=== PATIENT | female | born 1965 | race Caucasian/White ===

== ENCOUNTER 2023-01-04 12:59 | Outpatient (OUT) | payer MEDICAID, SELFPAY ==
--- NOTE | 2023-01-04 13:05 | XR_ITS ---
[address] [address] Patient Name: BENTON SORENSEN MRN: [id number] date: 1965 Sex: F Assigned Patient Location: [facility] Current Patient Location: [facility] Accession/Order Number: [id number] Exam Date: 01/04/2023 13:05 Report Date: 01/04/2023 23:14 At the request of: LANE [facility] Procedure: XR ankle LT min 3V EXAM: Left ankle. HISTORY: . LEFT ANKLE PAIN . COMPARISON: None. TECHNIQUE: 3 views. FINDINGS: Medial and lateral malleoli appear intact. Ankle mortise appears intact. Surrounding soft tissues are unremarkable. Visualized bones appear somewhat osteoporotic. Impression: 1. No acute bony abnormality of left ankle. Electronically authenticated by: NATACHA SALEH Date: 01/04/2023 23:14
--- NOTE | 2023-01-04 13:05 | XR_ITS ---
The [address] [address] Patient Name: BENTON SORENSEN MRN: [id number] date: 1965 Sex: F Assigned Patient Location: [facility] Current Patient Location: [facility] Accession/Order Number: [id number] Exam Date: 01/04/2023 13:05 Report Date: 01/05/2023 07:35 At the request of: L[facility] Procedure: XR foot LT min 3V PROCEDURE: XR foot LT min 3V HISTORY: LEFT FOOT PAIN ; follow-up left lateral malleolus fracture COMPARISON: XR left foot and ankle 12/13/2022 FINDINGS: BONES:Generalized mild osteopenia and multifocal mild degenerative joint disease. No acute fracture or dislocation. SOFT TISSUES:No visible soft tissue swelling. EFFUSION:None visible. OTHER: Negative. IMPRESSION: 1. Stable chronic changes. No acute or suspicious abnormality. Electronically authenticated by: CHARLES URRUTIA Date: 01/05/2023 07:35
== END 2023-01-04 13:00 ==
LOC: RAD 13:00
PROVIDERS: PCP Nurse Practitioner; Visit Provider Podiatrist Foot & Ankle Surgery
DX: S92.21 Fracture of cuboid bone (principal); S92.322K Displaced fracture of second metatarsal bone, left foot, subsequent encounter for fracture with nonunion
CPT/HCPCS: 73610; 73630

== ENCOUNTER 2023-01-16 12:19 | Outpatient (OUT) | payer MEDICAID, SELFPAY ==
[2023-01-16 12:33] VITALS: BP 124/82; PULSE 85; RESP 18; TEMP 36.6; O2SAT 93
[2023-01-16] MEDS: DENOSUMAB 60 MG/ML SYRINGE SUBQ (12:42)
--- NOTE | 2023-01-16 12:45 | PC.NURSE ---
Addendum entered by Sd Sheppard 01/16/23 12:59: 1300: Pt. without s&s of adverse reaction. Pt. d/c'd amb. to home Original Note: 1233: Pt. to [facility] amb. accompanied by child. Seated in recliner. VSS. Denies allergies. This RN explains how Prolia helps treat osteoporosis. Questions addressed. 1245: Pt. medicated with Prolia 60mg SQ to right arm. No bleeding to site. Pt. tolerated without c/o. Instructed to remain seated for brief observation for adverse reaction.
--- NOTE | 2023-01-16 13:28 | XR_ITS ---
The [place] [id number] Patient Name: BENTON SORENSEN MRN: [id number] date: 1965 Sex: F Assigned Patient Location: LAB Current Patient Location: LAB Accession/Order Number: [id number] Exam Date: 01/16/2023 13:35 Report Date: 01/17/2023 07:05 At the request of: RAHUL AYALA Procedure: XR lumbar spine 2-3V EXAMINATION: XR lumbar spine 2-3V HISTORY: Lumbar spine pain M54.50 COMPARISON: No relevant comparison available. FINDINGS: BONES: 10% anterior wedge compression fracture of L4, age indeterminate, endplate sclerosis suggests a chronic fracture. Mild spondylosis and facet osteoarthropathy DISC SPACES: Multilevel disc space narrowing most significant at L5-S1 PARASPINOUS: Negative. No paraspinous abnormality is seen. OTHER: Negative. IMPRESSION: Age-indeterminate anterior wedge compression fracture of L4 Electronically authenticated by: NATACHA NOVAK Date: 01/17/2023 07:05
--- NOTE | 2023-01-16 13:28 | XR_ITS ---
[address] [address] Patient Name: BENTON SORENSEN MRN: [id number] date: 1965 Sex: F Assigned Patient Location: LAB Current Patient Location: LAB Accession/Order Number: [id number] Exam Date: 01/16/2023 13:35 Report Date: 01/17/2023 06:30 At the request of: RAHUL AYALA Procedure: XR hip BI w PEL 1V EXAMINATION: XR hip BI w PEL 1V HISTORY: Bilateral hip pain M25.551, M25.552 COMPARISON: No relevant comparison available. FINDINGS: RIGHT FINDINGS: BONES: Normal. No significant arthropathy or acute abnormality. SOFT TISSUES: Negative. No visible soft tissue swelling. OTHER: Negative. LEFT FINDINGS: BONES: Normal. No significant arthropathy or acute abnormality. SOFT TISSUES: Negative. No visible soft tissue swelling. OTHER: Negative. IMPRESSION: RIGHT CONCLUSION: No acute radiographic abnormality LEFT CONCLUSION: No acute radiographic abnormality Electronically authenticated by: NATACHA NOVAK Date: 01/17/2023 06:30
[2023-01-16 14:27] LABS: Free T4 0.71 ng/dL (0.76-1.46)
[2023-01-16 15:39] LABS: Alanine Aminotransferase 20 U/L (14-59); Albumin Level 3.8 g/dL (3.4-5.0); Alkaline Phosphatase 98 U/L (46-116); Anion Gap 14.5; Aspartate Amino Transferase 28 U/L (15-37); BUN Creatinine Ratio 14.9; Bilirubin Total 0.3 mg/dL (0.2-1.0); Calcium 9.3 mg/dL (8.5-10.1); Carbon Dioxide 25.1 mmol/L (21.0-32.0); Chloride 106 mmol/L (98-107); Estimated GFR (African America 60 (>=60); Estimated GFR (Non-African Ame 49 (>=60); Globulin 3.7 g/dL; Glucose 90 mg/dL (74-106); Potassium 4.6 mmol/L (3.5-5.1); Sodium 141 mmol/L (136-145); Total Protein 7.5 g/dL (6.4-8.2)
[2023-01-16 15:57] LABS: Chol HDL Ratio 3.7; Cholesterol 190 mg/dL (<=200); HDL Cholesterol 52 mg/dL (40-60); Thyroid Stimulating Hormone 1.919 uIU/mL (0.358-3.740); Triglycerides 90 mg/dL (<=150)
== END 2023-01-24 00:46 | disposition home or self-care (01) ==
LOC: LAB 07-21 10:44
PROVIDERS: PCP Nurse Practitioner; Visit Provider Nurse Practitioner
DX: M81.0 Age-related osteoporosis without current pathological fracture (principal); E78.5 Hyperlipidemia, unspecified; E03.9 Hypothyroidism, unspecified; M25.551 Pain in right hip; M25.552 Pain in left hip; M54.50 Low back pain, unspecified; M48.56XA Collapsed vertebra, not elsewhere classified, lumbar region, initial encounter for fracture
CPT/HCPCS: 36415; 72100; 73523; 80053; 80061; 84439; 84443; J0897

== ENCOUNTER 2023-04-11 19:48 | Outpatient (OUT) | payer MEDICAID, SELFPAY | END 2023-04-11 19:49 | disposition home or self-care (01) | LOC: SLEEP 19:48 | PROVIDERS: PCP Nurse Practitioner; Visit Provider Nurse Practitioner | DX: G47.33 Obstructive sleep apnea (adult) (pediatric) (principal); F51.01 Primary insomnia | CPT/HCPCS: 95810 ==

== ENCOUNTER 2023-06-13 14:02 | Outpatient (OUT) | payer MEDICAID, SELFPAY ==
[2023-06-13 15:02] LABS: Anion Gap 14.2; BUN Creatinine Ratio 9.5; Calcium 9.2 mg/dL (8.5-10.1); Carbon Dioxide 22.8 mmol/L (21.0-32.0); Chloride 105 mmol/L (98-107); Estimated GFR (African America 48 (>=60); Estimated GFR (Non-African Ame 40 (>=60); Glucose 92 mg/dL (74-106); Sodium 138 mmol/L (136-145); Thyroid Stimulating Hormone 0.953 uIU/mL (0.358-3.740)
[2023-06-13 15:15] LABS: Free T4 0.82 ng/dL (0.76-1.46)
== END 2023-06-13 14:03 | disposition home or self-care (01) ==
LOC: LAB 14:04
PROVIDERS: PCP Nurse Practitioner; Visit Provider Nurse Practitioner
DX: E03.9 Hypothyroidism, unspecified (principal); M81.0 Age-related osteoporosis without current pathological fracture
CPT/HCPCS: 36415; 80048; 82306; 84439; 84443

== ENCOUNTER 2023-08-17 07:34 | Outpatient (RCR) | payer MEDICAID, SELFPAY ==
--- NOTE | 2023-08-17 13:52 | MM_ITS ---
Patient Name: BENTON SORENSEN MR#: [id number] : 1965 Exam Date: 08/17/2023 Ordering Doctor: CHERYL Yeboah CNP RADIOLOGY REPORT PROCEDURE: MM TOMOSYNTHESIS SCREENING BI COMPARISON: MG MAMM CLARIBEL DIAG W CAD DIG, 01/15/2016. INDICATIONS: Screening Calculator Name NCI Breast Cancer Risk Assessment Tool 5 Year Breast Cancer Risk 1.00% Lifetime Breast Cancer Risk 6.70% Personal Breast Cancer No Personal Ovarian Cancer No Treatments None Family Cancers Mother with uterine cancer at age 20. LOCATION: [facility] BREAST COMPOSITION: Heterogeneously dense,which may obscure small masses. FINDINGS: DIAGNOSTIC CATEGORY 1--NEGATIVE. NO CHANGE FROM COMPARISON ASSESSMENT. Scattered benign-appearing lymph nodes are present. RIGHT BREAST: No significant suspicious finding. LEFT BREAST: No significant suspicious finding. RECOMMENDATIONS: ROUTINE MAMMOGRAM AND CLINICAL EVALUATION IN 12 MONTHS. PLEASE NOTE: A NORMAL MAMMOGRAM DOES NOT EXCLUDE THE POSSIBILITY OF BREAST CANCER. A CLINICALLY SUSPICIOUS PALPABLE LUMP SHOULD BE BIOPSIED. Dictated by: Juan Blakely MD on 08/17/2023 at 15:38 Approved by: Juan Blakely MD on 08/17/2023 at 15:41
[2023-08-17 14:00] LABS: Anion Gap 13.6; BUN Creatinine Ratio 12.4; Calcium 9.4 mg/dL (8.5-10.1); Carbon Dioxide 25.5 mmol/L (21.0-32.0); Chloride 107 mmol/L (98-107); Estimated GFR (African America 48 (>=60); Estimated GFR (Non-African Ame 40 (>=60); Glucose 95 mg/dL (74-106); Potassium 4.1 mmol/L (3.5-5.1); Sodium 142 mmol/L (136-145)
[2023-08-17 14:28] VITALS: BP 123/86; PULSE 87; RESP 18; TEMP 36.6; O2SAT 98
[2023-08-17] MEDS: DENOSUMAB 60 MG/ML SYRINGE SQ (14:31)
== END 2023-08-17 14:30 | disposition home or self-care (01) ==
LOC: INF 07:34
PROVIDERS: PCP Nurse Practitioner; Visit Provider Nurse Practitioner
DX: Z12.31 Encounter for screening mammogram for malignant neoplasm of breast (principal); M81.0 Age-related osteoporosis without current pathological fracture; Z80.8 Family history of malignant neoplasm of other organs or systems
CPT/HCPCS: 36415; 77063; 77067; 80048; 96372; J0897

== ENCOUNTER 2023-12-18 15:10 | Outpatient (OUT) | payer MEDICAID, SELFPAY ==
--- NOTE | 2023-12-18 15:22 | XR_ITS ---
The [address] [address] Patient Name: BENTON SORENSEN MRN: [id number] date: 1965 Sex: F Assigned Patient Location: [facility] Current Patient Location: LAB Accession/Order Number: [id number] Exam Date: 12/18/2023 15:30 Report Date: 12/19/2023 11:16 At the request of: NON-STAFF PHYSICIAN Procedure: XR cervical spine 5V EXAMINATION: XR cervical spine 5V HISTORY: Degenerative disc disease M50.30 COMPARISON: No relevant comparison available. FINDINGS: BONES: No significant spondylosis, scoliosis, fracture, or visible bony lesion. DISC SPACES: Slight narrowing C4-5, C5-6, C6-7. PARASPINOUS: Negative. No paraspinous abnormality is seen. OTHER: Negative. XR/XR cervical spine 5V IMPRESSION: 1. No appreciable acute abnormality. 2. Multilevel mild degenerative disc disease and minimal degenerative facet arthropathy. Electronically authenticated by: CHARLES URRUTIA Date: 12/19/2023 11:16
== END 2023-12-18 15:11 | disposition home or self-care (01) ==
LOC: RAD 15:12
PROVIDERS: PCP Nurse Practitioner
DX: M50.30 Other cervical disc degeneration, unspecified cervical region (principal); M47.812 Spondylosis without myelopathy or radiculopathy, cervical region
CPT/HCPCS: 72050

== ENCOUNTER 2023-12-18 15:14 | Outpatient (OUT) | payer MEDICAID, SELFPAY ==
[2023-12-18 15:54] LABS: Basophils Percent Auto 0.3 % (0.2-2.0); Eosinophils Absolute Auto 0.1 10^3/uL (0.0-0.7); Eosinophils Percent Auto 1.2 % (0.9-7.0); Hematocrit 37.2 % (36.0-48.0); Hemoglobin 12.1 g/dL (12.0-16.0); Immature Granulocytes Abs Auto 0.04 10^3/uL (0.00-0.03); Immature Granulocytes Pct Auto 0.6 % (0.0-0.5); Lymphocytes Absolute Auto 2.5 10^3/uL (1.2-3.8); Mean Corpuscular HGB Conc 32.5 g/dL (29.9-35.2); Mean Corpuscular Hemoglobin 29.1 pg (26.7-34.0); Mean Corpuscular Volume 89.4 fL (81.0-99.0); Monocytes Absolute Auto 0.3 10^3/uL (0.3-0.8); Monocytes Percent Auto 4.2 % (1.7-12.0); Neutrophils Absolute Auto 4.2 10^3/uL (1.4-6.5); Neutrophils Percent Auto 58.7 % (43.0-75.0); Platelet Count 305 10^3/uL (150-450); Red Blood Count 4.16 10^6/uL (4.20-5.40); White Blood Count 7.2 10^3/uL (4.0-11.0)
[2023-12-18 16:00] LABS: Bilirubin Urine LARGE (NEGATIVE); Blood Urine NEGATIVE (NEGATIVE); Clarity Urine CLEAR (CLEAR); Color Urine YELLOW (YELLOW); Glucose Urine UA NEGATIVE (NEGATIVE); Ketones Urine NEGATIVE (NEGATIVE); Leukocyte Esterase Urine SMALL (NEGATIVE); Nitrite Urine NEGATIVE (NEGATIVE); Protein Urine NEGATIVE (NEG/TRACE); Urobilinogen Urine 0.2 EU/dL (0.2-1.0); pH Urine 6.5 (5.0-9.0)
[2023-12-18 16:03] LABS: Urine Microscopic Indicated YES
[2023-12-18 16:23] LABS: Alanine Aminotransferase 24 U/L (14-59); Albumin Level 3.7 g/dL (3.4-5.0); Alkaline Phosphatase 75 U/L (46-116); Anion Gap 14.9; Aspartate Amino Transferase 29 U/L (15-37); BUN Creatinine Ratio 10.4; Bilirubin Total 0.5 mg/dL (0.2-1.0); Calcium 9.3 mg/dL (8.5-10.1); Chloride 103 mmol/L (98-107); Chol HDL Ratio 3.6; Cholesterol 238 mg/dL (<=200); Estimated GFR (African America 54 (>=60); Estimated GFR (Non-African Ame 44 (>=60); Globulin 3.8 g/dL; Glucose 95 mg/dL (74-106); HDL Cholesterol 67 mg/dL (40-60); Potassium 3.9 mmol/L (3.5-5.1); Sodium 138 mmol/L (136-145); Thyroid Stimulating Hormone 0.187 uIU/mL (0.358-3.740); Total Protein 7.5 g/dL (6.4-8.2); Triglycerides 121 mg/dL (<=150); VLDL CHOLESTEROL 24.2 mg/dL
[2023-12-18 16:36] LABS: Free T4 1.06 ng/dL (0.76-1.46)
[2023-12-18 16:40] LABS: Bacteria Urine TRACE #/HPF (NONE SEEN); Cast Seen? NONE SEEN #/LPF (NONE SEEN); Crystals Seen? None Seen #/HPF (None Seen); Mucus Urine NONE SEEN (NONE SEEN); RBC Urine 0-2 #/HPF (0-2); Squamous Epithelial Cell Urine MANY #/LPF (NONE/RARE)
== END 2023-12-18 15:15 | disposition home or self-care (01) ==
LOC: LAB 15:14
PROVIDERS: PCP Nurse Practitioner; Visit Provider Nurse Practitioner
DX: M81.0 Age-related osteoporosis without current pathological fracture (principal); E03.9 Hypothyroidism, unspecified; F41.9 Anxiety disorder, unspecified; F32.A Depression, unspecified; E55.9 Vitamin D deficiency, unspecified; E78.2 Mixed hyperlipidemia; K21.9 Gastro-esophageal reflux disease without esophagitis; Z72.0 Tobacco use; M50.30 Other cervical disc degeneration, unspecified cervical region; M47.812 Spondylosis without myelopathy or radiculopathy, cervical region
CPT/HCPCS: 36415; 72050; 80053; 80061; 81001; 82306; 84439; 84443; 85025

== ENCOUNTER 2023-12-26 11:33 | Outpatient (OUT) | payer MEDICAID, SELFPAY ==
--- NOTE | 2023-12-26 11:36 | US_ITS ---
The [address] [address] Patient Name: BENTON SORENSEN MRN: [id number] date: 1965 Sex: F Assigned Patient Location: [place] Current Patient Location: [place] Accession/Order Number: [id number] Exam Date: 12/26/2023 11:37 Report Date: 12/26/2023 12:39 At the request of: RAHUL AYALA Procedure: US thyroid EXAM: US thyroid HISTORY: Thyroid nodule E04.1 COMPARISON: 04/19/2021 TECHNIQUE: Multiple sonographic images of the thyroid gland were obtained, supplemented with Doppler. FINDINGS: Right lobe measures 4.4 x 1.1 x 1.2 cm. Homogeneous echoes are noted throughout. In the mid aspect there is a complex hyperechoic nodular mass measuring 0.5 x 0.4 x 0.4 cm. This is considered TI RADS 4. The left lobe measures 4.1 x 1.4 x 1.2 cm. Homogeneous echoes are noted throughout. In the superior aspect there is a solid hyperechoic nodule present measuring 0.4 x 0.4 x 0.4 cm. This is considered TI RADS 3 The isthmus measures 4 mm in thickness. There is no evidence of a focal mass or abnormal fluid collection surrounding the gland. US/US thyroid IMPRESSION: The thyroid gland is not enlarged. A small nodule is seen in each lobe biopsy is not recommended at this time. Follow-up study as clinically indicated. Electronically authenticated by: LANE BARTHOLOMEW Date: 12/26/2023 12:39
== END 2023-12-26 11:34 | disposition home or self-care (01) ==
LOC: US 11:33
PROVIDERS: PCP Nurse Practitioner; Visit Provider Nurse Practitioner
DX: E04.1 Nontoxic single thyroid nodule (principal)
CPT/HCPCS: 76536

== ENCOUNTER 2024-04-02 14:16 | Outpatient (OUT) | payer MEDICAID, SELFPAY ==
[2024-04-03 09:37] LABS: Alanine Aminotransferase 25 U/L (14-59); Albumin Globulin Ratio 1.1; Albumin Level 3.6 g/dL (3.4-5.0); Alkaline Phosphatase 88 U/L (46-116); Anion Gap 13.6; Aspartate Amino Transferase 18 U/L (15-37); BUN Creatinine Ratio 13.6; Bilirubin Total 0.3 mg/dL (0.2-1.0); Calcium 9.3 mg/dL (8.5-10.1); Carbon Dioxide 25.5 mmol/L (21.0-32.0); Chloride 102 mmol/L (98-107); Chol HDL Ratio 3.5; Cholesterol 189 mg/dL (<=200); Estimated GFR (African America 57 (>=60); Estimated GFR (Non-African Ame 47 (>=60); Globulin 3.4 g/dL; Glucose 91 mg/dL (74-106); HDL Cholesterol 54 mg/dL (40-60); LDL Cholesterol Calculated 115.8 mg/dL; Magnesium 1.4 mg/dL (1.8-2.4); Potassium 4.1 mmol/L (3.5-5.1); Sodium 137 mmol/L (136-145); Thyroid Stimulating Hormone 2.877 uIU/mL (0.358-3.740); Triglycerides 96 mg/dL (<=150); VLDL CHOLESTEROL 19.2 mg/dL
[2024-04-03 11:44] LABS: Free T4 0.68 ng/dL (0.76-1.46)
== END 2024-04-02 14:17 | disposition home or self-care (01) ==
LOC: LAB 14:17
PROVIDERS: PCP Nurse Practitioner; Visit Provider Nurse Practitioner
DX: E03.9 Hypothyroidism, unspecified (principal); E78.2 Mixed hyperlipidemia; M81.0 Age-related osteoporosis without current pathological fracture; E83.42 Hypomagnesemia
CPT/HCPCS: 36415; 80053; 80061; 83735; 84439; 84443

== ENCOUNTER 2024-12-18 15:27 | Outpatient (OUT) | payer MEDICAID, SELFPAY ==
--- OUTSIDE RECORDS SUMMARY | 2024-12-17 16:00 | XMS_ITS | Encounter Summary ---
Author Organization [facility] Address [address] [place] [address] Care Team Providers Care Wick Tender Name Role Phone Minda Yeboah NP Unavailable [phone] Tony Mathur MD Primary Care Provider [phone] Minda Yeboah NP Unavailable [phone] Reason for Referral * Consultation (Stat) - Authorized Specialty Diagnoses / Procedures Referred By Contyara t Referred To Contact Gastroenterology Diagnoses Gastroesophageal reflux disease, unspecified whether esophagitis present Hematemesis, unspecified whether nausea present Diarrhea, unspecified type Procedures TX OFFICE/OUTPATIENT NEW HIGH MDM 60 MINUTES Minda Yeboah NP [address] [place] [address] Phone: tel: fax: Saumya Pulido MD [address] [place] [address], [address], [address] [address] Phone: tel: fax: Referral ID Status Reason Start Date Expiration Date Visits Requested Visits Authorized [id number] Authorized Specialty Services Required 12/17/2024 06/15/2025 1 1 Scheduling Instructions Not so much STAT, but higher priority to scheduling an appt please Send notes from 12/17/24 appt Encounter Details Date Type Department Care Team (Late st Contact Info) Description 12/17/2024 4:00 PM EDT Office Visit [facility] [address] [place] [address] Minda Yeboah NP [address] [place] [address] Hematemesis, unspecified whether nausea present (Primary Dx); Gastroesophageal reflux disease, unspecified whether esophagitis present; Rheumatoid arthritis with positive rheumatoid factor, involving unspecified site (CMS/HCC); Cigarette nicotine dependence without complication; Encounter for screening mammogram for malignant neoplasm of breast; Diarrhea, unspecified type; Multiple thyroid nodules (CMS/HCC); Obesity with body mass index (BMI) of 30.0 to 39.9 Social History Tobacco Use Types Packs/Day Years Used Date Smoking Tobacco: Every Day Cigarettes 1 43.4 Started: 1979 Alcohol Use Standard Drinks/Week Comments Never 0 (1 standard drink = 0.6 oz pur e alcohol) coffee: 2-3cups daily PHQ-2 Answer Date Recorded Patient Health Questionnaire-2 Score 0 07/04/2024 Comments Unknown Sex and Gender Information Value Date Recorded Sex Assigned at Not on file Legal Sex Female 11:44 AM EDT Gender Identity Not on file Sexual Orientation Not on file documented as of this encounter Last Filed Vital Signs Vital Sign Reading Time Taken Comments Blood Pressure 116/84 12/17/2024 4:00 PM EDT Pulse 86 12/17/2024 4:00 PM EDT Temperature 36.6 C (97.8 F) 12/17/2024 4:00 PM EDT Respiratory Rate 19 12/17/2024 4:00 PM EDT Oxygen Saturation 98% 12/17/2024 4:00 PM EDT Inhaled Oxygen Concentration - - Weight 91.3 kg (201 lb 3.2 oz) 12/17/2024 4:00 P M EDT Height - - Body Mass Index 31.51 07/04/2024 1:57 PM EST documented in this encounter Patient Instructions * Patient Instructions* Minda Yeboah NP - 12/17/2024 4:00 PM EDT Check labs Also stop omeprazole and start pantoprazole 40mg daily I referred you to dr pulido, he is GI doctor affiliated with [facility], they should be calling for an appointment Recommend no caffeine, and quitting smoking, if another episode of vomiting blood happens, go to ER documented in this encounter Progress Notes * Minda Yeboah NP - 12/17/2024 4:44 PM EDTAssociated Problem(s): Encounter for screening mammogram for malignant neoplasm of breast Check mammogram * Minda Yeboah NP - 12/17/2024 4:43 PM EDTAssociated Problem(s): Obesity with body mass index (BMI) of 30.0 to 39.9 Discussed with patient their BMI (actual, verses recommended). We have also discussed lifestyle modifications: attempts to perform physical activity as chronic conditions allow, also to monitor dietary intake: increasing protein/fruits/veggies and lowering carb intake (unless contraindicated). Limit sodas, juices, and sugary drinks. * Minda Yeboah NP - 12/17/2024 4:42 PM EDTAssociated Problem(s): Multiple thyroid nodules (CMS/HCC) Recheck US * Minda Yeboah NP - 12/17/2024 4:42 PM EDTAssociated Problem(s): Hematemesis No episodes since the one she describes Avoid ETOH, advised quit smoking Change PPI Refer to GI Check labs If happens again, proceed to the ER * Minda Yeboah NP - 12/17/2024 4:41 PM EDTAssociated Problem(s): Diarrhea No visible blood that she can see Check stool OB, as well as c diff Will refer to colonoscopy * SHARON QUIGLEY - 12/17/2024 4:00 PM EDT [place] went [place] to [place] (pt states she has been feeling drained for some time but she felt more drained than usual) pt states she typically does not drink alcohol. She had 4 rum cokes she passedout that night. Pt woke up close to 2 am and started having several emesis between 2am-6am. Pt states she had about 5 emesis but each time there was bright red blood and seemed to be a lot. Pt statesshe had the chills, headaches, no other s/s. Pt states it was only that night were she was vomitingblood. Pt states she did take all over her medications Monday morning before leaving however she did not take any meds that evening when drinking. Pt states she has had diarrhea for about a month no blood it does look dark in color not necessarily black and stomach is always bloated. * Minda Yeboah NP - 12/17/2024 4:00 PM EDT Images from the original note were not included. Tanja Carrero is a 59 y.o. female presents with chief complaint of No chief complaint on file. HPI: Pt went [place] (pt states she has been feeling drained for some time but she felt more drained than usual) pt states she typically does not drink alcohol. She had 4 rum cokes she passedout that night. Pt woke up close to 2 am and started having several emesis between 2am-6am. Pt states she had about 5 emesis but each time there was bright red blood and seemed to be a lot. Pt statesshe had the chills, headaches, no other s/s. Pt states it was only that night were she was vomitingblood. Pt states she did take all over her medications Monday morning before leaving however she did not take any meds that evening when drinking. Pt states she has had diarrhea for about a month no blood it does look dark in color not necessarily black and stomach is always bloated. No fever, no abd pain, no NVD. No further episodes of bloody emesis. She does have diarrheal stools2-3 times daily, and this has been ongoing from some time Dark stools, no bloody stools SUBJECTIVE: MEDICATIONS: Current Outpatient Medications Medication Instructions albuterol HFA 90 mcg/act inhaler 2 puffs, Inhalation, Every 6 hours PRN alendronate (FOSAMAX) 70 mg, Oral, Every 7 days, Take in the morning with a full glass of water, nicole empty stomach, and do not take anything else by mouth or lie down for the next 30 min. Ask pharmacist how to take this in relation to your thyroid medicati ARIPiprazole (ABILIFY) 5 mg, Oral, Daily atorvastatin (LIPITOR) 40 mg, Oral, Nightly cetirizine (ZYRTEC) 10 mg, Oral, Daily cholecalciferol (VITAMIN D-3) 50 mcg, Oral, Daily cyclobenzaprine (FLEXERIL) 5 mg, Daily PRN fluticasone (Flonase) 50 MCG/ACT nasal spray 2 sprays, Each Nostril, Daily folic acid (FOLVITE) 1 mg, Daily ibuprofen 800 mg, Every 8 hours PRN levothyroxine (SYNTHROID) 50 mcg, Oral, Daily before breakfast magnesium oxide (MAG-OX) 400 mg, Oral, Daily methotrexate 12.5 mg, Weekly pantoprazole (PROTONIX) 40 mg, Oral, Daily before breakfast, Do not crush, chew, or split. QUEtiapine (SEROQUEL) 150 mg, Oral, Nightly sertraline (ZOLOFT) 100 mg, Oral, 2 times daily topiramate (TOPAMAX) 100 mg, Oral, 2 times daily, Total daily dose is 125 mg topiramate (TOPAMAX) 25 mg, Oral, 2 times daily, Total daily dose is 125 mg Umeclidinium-Vilanterol (Anoro Ellipta) 62.5-25 MCG/ACT aerosol powder 1 puff, Inhalation, Daily ALLERGIES: No Known Allergies REVIEW OF SYMPTOMS: Review of Systems Constitutional: Positive for fatigue. Negative for appetite change, chills and fever. HENT: Negative for congestion, ear pain and sore throat. Eyes: Negative for pain, discharge, redness and visual disturbance. Respiratory: Negative for cough, shortness of breath and wheezing. Cardiovascular: Negative for chest pain, palpitations and leg swelling. Gastrointestinal: Negative for abdominal pain, blood in stool, constipation, diarrhea, nausea and vomiting. Bloody emesis Genitourinary: Negative for difficulty urinating, dysuria and frequency. Musculoskeletal: Positive for arthralgias. Negative for back pain, joint swelling and myalgias. Skin: Negative for rash and wound. Neurological: Negative for dizziness, tremors, seizures (hx of), syncope and headaches (hx of migraine). Psychiatric/Behavioral: Negative for behavioral problems, self-injury and suicidal ideas. The patient is nervous/anxious. Hematological: Does not bruise/bleed easily. Endocrine: Negative for polydipsia, polyphagia and polyuria. Allergic/Immunologic: Negative for environmental allergies and food allergies. PAST MEDICAL HISTORY Past Medical History: Diagnosis Date Abnormal chest CT Age-related osteoporosis without current pathological fracture ([facility]) 07/25/2023 Anemia Anxiety At low risk for fall Chronic pain Constipation COVID-19 virus detected Depression with anxiety 08/14/2023 10/20/22: MARY 7 score=18, PHQ 9 score=18 Elevated serum creatinine 07/27/2023 Elevated serum glucose Environmental and seasonal allergies 08/20/2023 MARY (generalized anxiety disorder) ([facility] 07/22/2023 GERD (gastroesophageal reflux disease) 08/14/2023 HLD (hyperlipidemia) ([facility] 08/14/2023 Hypokalemia Hypomagnesemia 08/14/2023 Hypothyroidism (acquired) ([facility]) 07/03/2023 Insomnia 08/14/2023 Lumbar spine pain Major depressive disorder with single episode, in remission (HCC) ([facility] 07/03/2023 Migraines ([facility]) 08/14/2023 Mild episode of recurrent major depressive disorder (HCC) ([facility]) Obesity with body mass index (BMI) of 30.0 to 39.9 09/11/2023 THOMAS (obstructive sleep apnea) 08/14/2023 sleep study: AHI 7, minimum oxygen saturation is 87% Osteoporosis ([facility]) 08/14/2023 Postmenopause RA (rheumatoid arthritis) ([facility]) 08/14/2023 Seizures ([facility]) 08/14/2023 Spondylosis, lumbosacral 08/14/2023 Thyroid enlargement ([facility]) 09/11/2023 Thyroid nodule ([facility]) 09/11/2023 Tobacco user 08/14/2023 Past Surgical History: Procedure Laterality Date APPENDECTOMY 02/23/2007 family history includes Arthritis in her mother; Cancer in her mother; Heart disease in her father,maternal grandmother, and another family member; Hypertension in her father, mother, and another family member; Hypothyroidism in her mother; Rheum arthritis in her mother. OBJECTIVE: Visit Vitals BP 116/84 (BP Location: Left arm, Patient Position: Sitting, BP Cuff Size: Adult long) Pulse 86 Temp 97.8 ??F (Temporal) Resp 19 Wt 201 lb 3.2 oz SpO2 98% BMI 31.51 kg/m?? Smoking Status Every Day BSA 2.08 m?? Physical Exam Vitals and nursing note reviewed. Constitutional: General: She is not in acute distress. Appearance: Normal appearance. She is not ill-appearing. HENT: Head: Normocephalic and atraumatic. Right Ear: External ear normal. Left Ear: External ear normal. Nose: Nose normal. Mouth/Throat: Mouth: Mucous membranes are moist. Eyes: Extraocular Movements: Extraocular movements intact. Conjunctiva/sclera: Conjunctivae normal. Neck: Vascular: No carotid bruit. Cardiovascular: Rate and Rhythm: Normal rate and regular rhythm. Pulses: Normal pulses. Heart sounds: Normal heart sounds. No murmur heard. Pulmonary: Effort: Pulmonary effort is normal. Breath sounds: Normal breath sounds. No wheezing or rhonchi. Abdominal: General: Bowel sounds are normal. There is no distension. Palpations: Abdomen is soft. There is no mass. Tenderness: There is no abdominal tenderness. There is no guarding or rebound. Musculoskeletal: General: Normal range of motion. Cervical back: Normal range of motion and neck supple. Right lower leg: No edema. Left lower leg: No edema. Lymphadenopathy: Cervical: No cervical adenopathy. Skin: General: Skin is warm and dry. Capillary Refill: Capillary refill takes 2 to 3 seconds. Findings: No rash. Neurological: General: No focal deficit present. Mental Status: She is alert and oriented to person, place, and time. Psychiatric: Mood and Affect: Mood normal. Behavior: Behavior normal. Thought Content: Thought content normal. Judgment: Judgment normal. ASSESSMENT AND PLAN: Follow up in about 4 weeks (around 01/14/2025) for Recheck. Problem List Items Addressed This Visit GERD (gastroesophageal reflux disease) - Primary Recommendations: freq small meals, nothing to eat or drink at least 2 hours prior to bed, limit caffeine, alcohol, as well as spicy foods Meds to limit or avoid if possible: NSAIDS Elevate HOB if possible Currently taking PPI, will stop omeprazole and start pantoprazole Relevant Medications pantoprazole (ProtoNix) 40 MG EC tablet Other Relevant Orders Ambulatory referral to Gastroenterology Rheumatoid arthritis, unspecified Continue with rheumatolgist ?? Meds aggravating stomach?? Multiple thyroid nodules (CMS/HCC) Recheck US Obesity with body mass index (BMI) of 30.0 to 39.9 Discussed with patient their BMI (actual, verses recommended). We have also discussed lifestyle modifications: attempts to perform physical activity as chronic conditions allow, also to monitor dietary intake: increasing protein/fruits/veggies and lowering carb intake (unless contraindicated). Limit sodas, juices, and sugary drinks. Cigarette nicotine dependence without complication The patient has been advised of the risks of continued smoking: stroke, CO, all forms of cancer, lung disease, and . Options for quitting smoking include: cold turkey, hypnosis, acupuncture, nicotine replacement meds(gum, lozenges, and patches), Buproprion, and Varenicline. At this time pt is encouraged to evaluate their goals for wanting to quit smoking, and reach out toprovider when ready to start this process Encounter for screening mammogram for malignant neoplasm of breast Check mammogram Hematemesis No episodes since the one she describes Avoid ETOH, advised quit smoking Change PPI Refer to GI Check labs If happens again, proceed to the ER Relevant Orders Ambulatory referral to Gastroenterology Diarrhea No visible blood that she can see Check stool OB, as well as c diff Will refer to colonoscopy Relevant Orders Occult blood x 1, stool Clostridium difficile,EIA Ambulatory referral to Gastroenterology * Minda Yeboah NP - 12/17/2024 6:55 AM EDTAssociated Problem(s): Cigarette nicotine dependence without complication The patient has been advised of the risks of continued smoking: stroke, CO, all forms of cancer, lung disease, and . Options for quitting smoking include: cold turkey, hypnosis, acupuncture, nicotine replacement meds(gum, lozenges, and patches), Buproprion, and Varenicline. At this time pt is encouraged to evaluate their goals for wanting to quit smoking, and reach out toprovider when ready to start this process * Minda Yeboah NP - 12/17/2024 6:55 AM EDTAssociated Problem(s): Rheumatoid arthritis, unspecified Continue with rheumatolgist ?? Meds aggravating stomach?? * Minda Yeboah NP - 12/17/2024 6:54 AM EDTAssociated Problem(s): GERD (gastroesophageal reflux disease) Recommendations: freq small meals, nothing to eat or drink at least 2 hours prior to bed, limit caffeine, alcohol, as well as spicy foods Meds to limit or avoid if possible: NSAIDS Elevate HOB if possible Currently taking PPI, will stop omeprazole and start pantoprazole documented in this encounter Plan of Treatment Upcoming Encounters Date Type Department Care Team (Late st Contact Info) Description 01/13/2025 1:00 PM EDT Office Visit [facility] [address] [place] [address] Minda Yeboah NP [address] [place] [address] Scheduled Orders Name Type Priority Associated Diagnoses Orde r Schedule Occult blood x 1, stool Lab Routine Diarrhea, unspecified type Expected: 12/17/2024 (Approximate), Expires: 12/17/2025 Clostridium difficile,EIA Microbiology Routine Diarrhea, unspecified type Expected: 12/17/2024 (Approximate), Expires: 12/17/2025 Scheduled Referrals Name Type Priority Associated Diagnoses Order Schedule Ambulatory referral to Gastroenterology Outpatient Referral STAT Gastroesophageal reflux disease, unspecified whether esophagitis present Hematemesis, unspecified whether nausea present Diarrhea, unspecified type Expected: 12/17/2024 (Approximate), Expires: 06/19/2025 documented as of this encounter Visit Diagnoses Diagnosis Hematemesis, unspecified whether nausea present- Primary Gastroesophageal reflux disease, unspecified whether esophagitis present Rheumatoid arthritis with positive rheumatoid factor, involving unspecified site (CMS/HCC) Cigarette nicotine dependence without complication Encounter for screening mammogram for malignant neoplasm of breast Diarrhea, unspecified type Multiple thyroid nodules ([facility]/HCC) Nontoxic multinodular goiter Obesity with body mass index (BMI) of 30.0 to 39.9 documented in this encounter Care Teams Wick Tender Relationship Specialty Start Date End Date Tony Mathur MD [address] [place] [id number] PCP - General Family Medicine 09/19/23 Minda Yeboah NP [address] [place] [address] Referring Physician Nurse Practitioner 02/10/23 Minda Yeboah NP [address] [place] [address] Nurse Practitioner Family Medicine 09/19/23 documented as of this encounter
--- OUTSIDE RECORDS SUMMARY | 2024-12-18 15:32 | XMS_ITS | Encounter Summary ---
Author Organization [facility] Address [address] [facility] [place] [place] [address] Care Team Providers Care Rn Cvicu Name Role Phone Minda Yeboah NP Unavailable [phone] Tony Mathur MD Primary Care Provider [phone] Minda Yeboah NP Unavailable [phone] Encounter Details Date Type Department Care Team (Late st Contact Info) Description 12/26/2023 Clinisync Result Encounter [facility] External Department Unsolicited Minda Yeboah NP [address] [place] [address] Social History Tobacco Use Types Packs/Day Years Used Date Smoking Tobacco: Every Day Cigarettes 1 43.4 Started: 1981 Alcohol Use Standard Drinks/Week Comments Never 0 (1 standard drink = 0.6 oz pur e alcohol) coffee: 2-3cups daily PHQ-2 Answer Date Recorded Patient Health Questionnaire-2 Score 0 09/19/2023 Comments Unknown Sex and Gender Information Value Date Recorded Sex Assigned at Not on file Legal Sex Female 11:44 AM EDT Gender Identity Not on file Sexual Orientation Not on file documented as of this encounter Plan of Treatment Upcoming Encounters Date Type Department Care Team (Late st Contact Info) Description 01/13/2025 1:00 PM EDT Office Visit [facility] [address] [place] [phone] Minda Yeboah NP [address] [place] [address] (work) documented as of this encounter Procedures Procedure Name Priority Date/Time Associated Diagnosis Comments US THYROID 12/26/2023 12:39 PM EDT documented in this encounter Results * US thyroid (12/26/2023 12:39 PM EDT) Anatomical Region Laterality Modality Head, Neck Ultrasound 12/26/2023 12:3 9 PM EDT Narrative 12/26/2023 12:41 [place] [address] Ultrasound Report Signed Patient: BENTON CARRERO MR#: [id number] : 1965 Acct:[id number] Age/Sex: 58 / F ADM Date: 12/26/23 Loc: US Attending Dr: Minda Yeboah NP Ordering Physician: Minda Yeboah NP Date of Service: 12/26/23 Procedure(s): US thyroid Accession Number(s): [id number] cc: Minda Yeboah NP [address] [address] Patient Name: BENTON CARRERO MRN: [id number] date: 1965 Sex: F Assigned Patient Location: US Current Patient Location: US Accession/Order Number: [id number] Exam Date: 12/26/2023 11:37 Report Date: 12/26/2023 12:39 At the request of: MINDA YEBOAH Procedure: US thyroid EXAM: US thyroid HISTORY: Thyroid nodule E04.1 COMPARISON: 04/19/2021 TECHNIQUE: Multiple sonographic images of the thyroid gland were obtained, supplemented with Doppler. FINDINGS: Right lobe measures 4.4 x 1.1 x 1.2 cm. Homogeneous echoes are noted throughout. In the mid aspect there is a complex hyperechoic nodular mass measuring 0.5 x 0.4 x 0.4 cm. This is considered TI RADS 4. The left lobe measures 4.1 x 1.4 x 1.2 cm. Homogeneous echoes are noted throughout. In the superior aspect there is a solid hyperechoic nodule present measuring 0.4 x 0.4 x 0.4 cm. This is considered TI RADS 3 The isthmus measures 4 mm in thickness. There is no evidence of a focal mass or abnormal fluid collection surrounding the gland. US/US thyroid IMPRESSION: The thyroid gland is not enlarged. A small nodule is seen in each lobe biopsy is not recommended at this time. Follow-up study as clinically indicated. Electronically authenticated by: LANE DANIELLE Date: 12/26/2023 12:39 Dictated By: Lane Danielle M.D. Signed By: 12/26/23 1241 DD/ 1239 TD/TT: Loss Claim Clerk: Procedure Note Radiology, Radiologist, MD - 12/26/2023 [place] [address] Ultrasound Report Signed Patient: BENTON CARRERO MMR#: [id number] : 1965Acct:[id number] Age/Sex: 58 / FADM Date: 12/26/23 Loc: US Attending Dr: Minda Yeboah NP Ordering Physician: Minda Yeboah NP Date of Service: 12/26/23 Procedure(s): US thyroid Accession Number(s): [id number] cc: Minda Yeboah NP [facility] [place] [id number] Patient Name: BENTON CARRERO MRN: [id number] date: 1965 Sex: F Assigned Patient Location: US Current Patient Location: US Accession/Order Number: [id number] Exam Date: 12/26/2023 11:37 Report Date: 12/26/2023 12:39 At the request of: MINDA YEBOAH Procedure: US thyroid EXAM: US thyroid HISTORY: Thyroid nodule E04.1 COMPARISON: 04/19/2021 TECHNIQUE: Multiple sonographic images of the thyroid gland were obtained, supplemented with Doppler. FINDINGS: Right lobe measures 4.4 x 1.1 x 1.2 cm. Homogeneous echoes arenoted throughout. In the mid aspect there is a complex hyperechoic nodular mass measuring 0.5 x 0.4 x 0.4 cm. This is considered TI RADS 4. The left lobe measures 4.1 x 1.4 x 1.2 cm. Homogeneous echoes are noted throughout. In the superior aspect there is a solid hyperechoic nodulepresent measuring 0.4 x 0.4 x 0.4 cm. This is considered TI RADS 3 The isthmus measures 4 mm in thickness. There is no evidence of a focalmass or abnormal fluid collection surrounding the gland. US/US thyroid IMPRESSION: The thyroid gland is not enlarged. A small nodule is seen in each lobebiopsy is not recommended at this time. Follow-up study as clinically indicated. Electronically authenticated by: LANE DANIELLE Date: 12/26/2023 12:39 Dictated By: Lane Danielle M.D. Signed By:12/26/23 1241 DD/ 1239 TD/TT: Loss Claim Clerk: us Minda Yeboah NP IMG US PROCEDURES Final Result documented in this encounter Visit Diagnoses Not on filedocumented in this encounter Care Teams Rn Cvicu Relationship Specialty Start Date End Date Tony Mathur MD [address] [place] [phone] PCP - General Family Medicine 09/19/23 Minda Yeboah NP [address] [place] [phone] Referring Physician Nurse Practitioner 02/10/23 Minda Yeboah NP [address] [place] [phone] Nurse Practitioner Family Medicine 09/19/23 documented as of this encounter
--- OUTSIDE RECORDS SUMMARY | 2024-12-18 15:32 | XMS_ITS | Encounter Summary ---
Author Organization [facility] Address [address] [facility] [place] [address] Care Team Providers Care Measurement Advisor Name Role Phone Tnoy Mathru MD Primary Care Provider [phone] Minda Yeboah VIRTUAL ASSISTANT FOR ADVERTISERS Unavailable [phone] Tony Mathur MD Primary Care Provider [phone] Minda Yeboah VIRTUAL ASSISTANT FOR ADVERTISERS Unavailable [phone] Encounter Details Date Type Department Care Team (Late st Contact Info) Description 07/19/2023 Abstract [facility] [address] [place] [id number] Minda Yeboah NP [address] [place] [phone] Social History Tobacco Use Types Packs/Day Years Used Date Smoking Tobacco: Never Assessed Comments Unknown Sex and Gender Information Value Date Recorded Sex Assigned at Not on file Legal Sex Female 11:44 AM EDT Gender Identity Not on file Sexual Orientation Not on file documented as of this encounter Plan of Treatment Upcoming Encounters Date Type Department Care Team (Late st Contact Info) Description 01/13/2025 1:00 PM EDT Office Visit [facility] [address] [place] [phone] Minda Yeboah NP [address] [place] [phone] documented as of this encounter Visit Diagnoses Not on filedocumented in this encounter Care Teams Measurement Advisor Relationship Specialty Start Date End Date Tony Mathur MD PCP - General Family Medicine 02/10/23 09/18/23 Tony Mathur MD [address] [place] [address] PCP - General Family Medicine 09/19/23 Minda Yeboah NP [address] [place] [address] Referring Physician Nurse Practitioner 02/10/23 Minda Yeboah NP [address] [place] [address] Nurse Practitioner Family Medicine 09/19/23 documented as of this encounter
--- OUTSIDE RECORDS SUMMARY | 2024-12-18 15:32 | XMS_ITS | Encounter Summary ---
Author Organization [facility] tem Address [id number] [address] [place] [address] Care Team Providers Care Finger Buffs Assembler Name Role Phone Unavailable Primary Care Provider Unavailabl e Encounter Details Date Type Department Care Team (Late st Contact Info) Description 12/22/2023 Orders Only [facility] External Film Storage [facility] [place] [address] Transcribe, Orders Support User Pain (Primary Dx) Social History Tobacco Use Types Packs/Day Years Used Date Smoking Tobacco: Never Assessed Childcare Answer Date Recorded Childcare Unknown 01/09/2019 Employment Answer Date Recorded Employment Unknown 01/09/2019 Comments Unknown Sex and Gender Information Value Date Recorded Sex Assigned at Not on file Legal Sex Female 11:26 AM EDT Gender Identity Not on file Sexual Orientation Not on file documented as of this encounter Plan of Treatment Upcoming Encounters Date Type Department Care Team (Late st Contact Info) Description 01/16/2025 12:30 PM EDT Office Visit [facility] of [facility] [address] [id number] Cristian Szymanski MD [address] [address] documented as of this encounter Results * X-ray spine cervical 4 or 5 views (12/18/2023 3:30 PM EDT) us Scanning Provider External IMG DIAGNOSTIC IMAGIN G ORDERABLES Final Result documented in this encounter Visit Diagnoses Diagnosis Pain- Primary Generalized pain documented in this encounter
--- OUTSIDE RECORDS SUMMARY | 2024-12-18 15:32 | XMS_ITS | Patient Health Record ---
Author Organization [facility] [place] Address [address] [place] [address] Care Team Providers Care Clinical Research Spec Name Role Phone Minda Yeboah CNP Primary Care Provider Unavail able Allergies No Known Allergies Reason For Referral No Information Medications Medication SIG (Take, Route, Frequency, Duration) Notes Start Date End Date Status Fluticasone Propionate 50 MCG/ACT instill 2 spray into each nostril once daily Nasal for 30 Days Active busPIRone HCl 10 MG Oral for 30 Days Active Cetirizine HCl 10 MG Oral for 30 Days Active Anoro Ellipta 62.5-25 MCG/ACT Inhalation for 30 Days Activ e Topiramate 100 MG Oral for 30 Days Active Atorvastatin Calcium 10 MG take 1 tablet by mouth once daily Oral for 30 Days Active Ventolin HFA 108 (90 Base) MCG/ACT inhale 2 puffs by mouth and INTO THE LUNGS every 6 hours if needed for cough shortness of breath Inhalation for 25 Days Active QUEtiapine Fumarate 100 MG take 1 tablet by mouth at bedtime WITH 50 MG TABLET Oral for 30 Days Active Sertraline HCl 50 MG Oral for 30 Days Active oxyCODONE-Acetaminophen 5-325 MG take 1 tablet by mouth every 8 hours if needed for pain - - MAX 3 TABLET IN 24 HOURS Oral for 7 Days Active Pantoprazole Sodium 40 MG Oral for 30 Days Active Gabapentin 300 MG Oral for 30 Days Active Levothyroxine Sodium 25 MCG Oral for 30 Days Active Social History Tobacco Use: Social History Observation Description Date Details (start date - stop date) Current Smoker NA - NA Tobacco Use/Smoking Question Answer Notes Patient is a current every day smoker Additional Findings: Tobacco User Moderate cigar ette smoker (10-19 cigs/day) Problems Problem Type SNOMED Code ICD Code Onset Dates Problem Status W/U Status Risk Notes Problem 103429684 Age-related osteoporosis without current pathological fracture (M81.0) Active confirmed Problem 603428966 Pain in left ankle and joints of left foot (M25.572) Active confirmed Problem 377576790 Age-related osteoporosis with current pathological fracture, unspecified site, initial encounter for fracture (M80.00XA) Active confirmed Problem 39218686 Age-related osteoporosis with current pathological fracture, unspecified site, 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) Active confirmed Problem 49550663 Nondisplaced fracture of lateral malleolus of left fibula, subsequent encounter for closed fracture with delayed healing (S82.65XG) Active confirmed Problem 1090215 Nondisplaced fracture of cuboid bone of left foot, 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) Active confirmed Problem 48239602 Displaced fracture of second metatarsal bone, left foot, 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) Active confirmed Plan Of Treatment No Information Insurance Providers Payer Name Payer Address Payer Phone Subscriber Number Group Number Insured Name Patient Relationship to Insured Coverage Start Date Coverage End Date [employer] [place] [employer] [address] [address] [place] [address] [id number] Tanja Carrero Self - patient is the insured 3 Medical (General) History Medical History History ICD Code Dislocation of tarsometatarsal joint of left foot, subsequent encounter S93.325D Closed fracture of left ankle with routi ne healing S82.892D Ankle pain, left M25.572 Current nicotine use Z72.0 osteoporosis rheumatoid arthritis oste
--- OUTSIDE RECORDS SUMMARY | 2024-12-18 15:32 | XMS_ITS | Clinical Summary ---
Author Organization [facility] Address [address] [place] [address] Care Team Providers Care Paper Sealer Name Role Phone Minda Yeboah NP Unavailable [phone] Tony Mathur MD Primary Care Provider [phone] Minda Yeboah TEST CENTER ADMINISTRATOR Unavailable [phone] Allergies No known active allergies Medications ibuprofen 800 MG tablet Take 800 mg by mouth every 8 (eight) hours if needed 04/05/20 24 Active cyclobenzaprine (Flexeril) 5 MG tablet Take 5 mg by mouth Daily as needed for muscle spasms 05/16/20 24 Active albuterol HFA 90 mcg/act inhalerIndications :Simple chronic bronchitis (CMS/HCC) Inhale 2 puffs every 6 (six) hours if needed for wheezing 18 g 09/16/19 25 Active methotrexate 2.5 MG tablet Take 12.5 mg by mouth 1 (one) time per week. Active folic acid (Folvite) 1 MG tablet Take 1 mg by mouth Daily Active alendronate (Fosamax) 70 MG tabletIndications: Osteoporosis, unspecified osteoporosis type, unspecified pathological fracture presence (CMS/HCC) Take 1 tablet (70 mg) by mouth every 7 (seven) days Take in the morning with a full glass of water, on an empty stomach, and do not take anything else by mouth or lie down for the next 30 min. Ask pharmacist how to take this in relation to your thyroid medicati 12 tablet 1 10/15/19 25 025 Active ARIPiprazole (Abilify) 5 MG tabletIndications: Major depressive disorder with single episode, in remission (HCC) (CMS/HCC) Take 1 tablet (5 mg) by mouth Daily 90 tablet 10/15/19 25 025 Active atorvastatin (Lipitor) 40 MG tabletIndications: Mixed hyperlipidemia (CMS/HCC) Take 1 tablet (40 mg) by mouth at bedtime 90 tablet 10/15/19 025 Active cetirizine (ZyrTEC) 10 MG tabletIndications: Vitamin D deficiency,Environ mental and seasonal allergies Take 1 tablet (10 mg) by mouth Daily 90 tablet 1 10/15/19 025 Active cholecalciferol (Vitamin D-3) 50 MCG (2000 UT) capsuleIndications :Vitamin D deficiency Take 1 capsule (50 mcg) by mouth Daily 90 capsule 10/15/19 025 Active fluticasone (Flonase) 50 MCG/ACT nasal sprayIndications:E nvironmental and seasonal allergies Administer 2 sprays into each nostril Daily 48 g 10/15/19 025 Active levothyroxine (Synthroid) 50 MCG tabletIndications: Hypothyroidism (acquired) (CMS/HCC) Take 1 tablet (50 mcg) by mouth in the morning. Take before meals. 90 tablet 1 10/15/19 025 Active magnesium oxide (Mag-Ox) 400 (240 Mg) MG tabletIndications: Hypomagnesemia Take 1 tablet (400 mg) by mouth Daily 90 tablet 10/15/19 025 Active QUEtiapine (SEROquel) 50 MG tabletIndications: Anxiety and depression (CMS/HCC) Take 3 tablets (150 mg) by mouth at bedtime 270 tablet 10/15/19 025 Active sertraline (Zoloft) 100 MG tabletIndications: MARY (generalized anxiety disorder) (CMS/HCC),Major depressive disorder with single episode, in remission (HCC) (CMS/HCC) Take 1 tablet (100 mg) by mouth in the morning and 1 tablet (100 mg) before bedtime. 180 tablet 1 10/15/19 025 Active topiramate (Topamax) 100 MG tabletIndications: Seizures (CMS/HCC) Take 1 tablet (100 mg) by mouth in the morning and 1 tablet (100 mg) before bedtime. Total daily dose is 125 mg. 180 tablet 1 10/15/19 25 025 Active topiramate (Topamax) 25 MG tabletIndications: Seizures (CMS/HCC) Take 1 tablet (25 mg) by mouth in the morning and 1 tablet (25 mg) before bedtime. Total daily dose is 125 mg. 180 tablet 1 10/15/19 25 025 Active Umeclidinium-Vilan terol (Anoro Ellipta) 62.5-25 MCG/ACT aerosol powderIndications: Simple chronic bronchitis (CMS/HCC) Inhale 1 puff Daily 3 each 1 10/15/19 25 025 Active pantoprazole (ProtoNix) 40 MG EC tabletIndications: Gastroesophageal reflux disease, unspecified whether esophagitis present Take 1 tablet (40 mg) by mouth in the morning. Take before meals. Do not crush, chew, or split. 30 tablet 1 12/18/19 025 Active omeprazole (PriLOSEC) [address] capsuleIndications :Gastroesophageal reflux disease, unspecified whether esophagitis present Take 1 capsule (40 mg) by mouth in the morning. Take before meals. 90 capsule 1 10/15/19 025 Discontin ued(Ineff ective) Active Problems Problem Noted Date Diagnosed Date Hematemesis 12/17/2024 Assessment & Plan (12/17/2024 4:42 PM EDT): No episodes since the one she describes Avoid ETOH, advised quit smoking Change PPI Refer to GI Check labs If happens again, proceed to the ER Diarrhea 12/17/2024 Assessment & Plan (12/17/2024 4:41 PM EDT): No visible blood that she can see Check stool OB, as well as c diff Will refer to colonoscopy Chronic kidney disease, stage 3a ([facility]) 5 Mild episode of recurrent major depressive disor esperanza ([facility]) 10/01/2024 Assessment & Plan (10/14/2024 2:58 PM EDT): Current meds: seroquel, sertraline, aripiprazole PHQ 9= 8 Cigarette nicotine dependence without complicati on 10/01/2024 Assessment & Plan (12/17/2024 6:55 AM EDT): The patient has been advised of the risks of continued smoking: stroke, MO, all forms of cancer, lung disease, and . Options for quitting smoking include: cold turkey, hypnosis, acupuncture, nicotine replacement meds (gum, lozenges, and patches), Buproprion, and Varenicline. At this time pt is encouraged to evaluate their goals for wanting to quit smoking, and reach out to provider when ready to start this process Assessment & Plan (10/14/2024 7:26 AM EDT): The patient has been advised of the risks of continued smoking: stroke, MO, all forms of cancer, lung disease, and . Options for quitting smoking include: cold turkey, hypnosis, acupuncture, nicotine replacement meds (gum, lozenges, and patches), Buproprion, and Varenicline. At this time pt is encouraged to evaluate their goals for wanting to quit smoking, and reach out to provider when ready to start this process Encounter for screening mamm ogram for malignant neoplasm of breast 10/01/2024 Assessment & Plan (12/17/2024 4:44 PM EDT): Check mammogram Chronic obstructive pulmonary disease, unspecifi ed 05/29/2024 Assessment & Plan (07/04/2024 7:32 AM EST): Recommend quit smoking Cont anoro, albuterol prn Abnormal weight gain 04/29/2024 Assessment & Plan (07/04/2024 7:28 AM EST): Has completed # 6 months of adipex Total loss: Discussed with patient their BMI (actual, verses recommended). We have also discussed lifestyle modifications: attempts to perform physical activity as chronic conditions allow, also to monitor dietary intake: increasing protein/fruits/veggies and lowering carb intake (unless contraindicated). Limit sodas, juices, and sugary drinks. Maintain 1600 calorie diet Assessment & Plan (06/05/2024 2:34 PM EST): Has completed # 5 months of adipex OARRS reviewed Order month #6 Stick with 1600 calories daily Water intake, and exercise as chronic conditions allow Assessment & Plan (04/29/2024 6:10 PM EDT): Has completed # 3 months of adipex Total weight loss: 14 pounds OARRS reviewed COVID 09/28/2023 Nausea 09/26/2023 Chronic pain 09/11/2023 Constipation 09/11/2023 Assessment & Plan (06/05/2024 2:36 PM EST): Pre existing, does take miralax And adipex is likely worsening this Would recommend fiber tablets daily 2 pills Add apple juice /prune juice mix 1/2 cup nightly as well Thyroid nodule 09/11/2023 Overview (12/26/2023): US 12/26/23: 2 nodules, no biopsy at this time, repeat in 12 months Assessment & Plan (09/19/2023 3:05 PM EST): Needs fu US thyroid, will fax order to [facility] for this to be scheduled Thyroid enlargement 09/11/2023 Obesity with body mass index (BMI) of 30.0 to 39 .9 09/11/2023 Assessment & Plan (12/17/2024 4:43 PM EDT): Discussed with patient their BMI (actual, verses recommended). We have also discussed lifestyle modifications: attempts to perform physical activity as chronic conditions allow, also to monitor dietary intake: increasing protein/fruits/veggies and lowering carb intake (unless contraindicated). Limit sodas, juices, and sugary drinks. Assessment & Plan (01/22/2024 3:41 PM EDT): Pt meets qualifications of [facility] 4731-06-03 for weight loss. BMI>30 or >27 with comorbid conditions. Notify office with any symptoms of chest pain, dyspnea, heart palpitations, or any anxiety symptoms. F/U in 4 weeks to document weight loss. Increase physical activity as tolerated, and lower caloric intake to 1600 calories daily if no contraindications Start month #2: Total loss 8 pounds Assessment & Plan (12/18/2023 3:23 PM EDT): Weight increased when had foot fracture, also adding seroquel for sleep and anxiety. Pt meets qualifications of [facility] 4731-06-03 for weight loss. BMI>30 or >27 with comorbid conditions. Notify office with any symptoms of chest pain, dyspnea, heart palpitations, or any anxiety symptoms. F/U in 4 weeks to document weight loss. Increase physical activity as tolerated, and lower caloric intake to 1600 calories daily if no contraindications OARRS reviewed #1: Multiple thyroid nodules 08/28/2023 Assessment & Plan (12/17/2024 4:42 PM EDT): Recheck US Vitamin D deficiency 08/20/2023 Assessment & Plan (07/04/2024 7:34 AM EST): Continue current supplement Check labs yearly and prn Assessment & Plan (12/18/2023 3:18 PM EDT): Check labs Environmental and seasonal allergies 08/20/2023 Seizures 08/14/2023 Assessment & Plan (10/14/2024 7:25 AM EDT): Is not compliant with neurology fu Current meds: topirimate Assessment & Plan (07/04/2024 7:31 AM EST): Will cont topirimate, but monitor Is not compliant with neurology fu Assessment & Plan (04/29/2024 6:06 PM EDT): Will cont topirimate, but monitor Assessment & Plan (04/02/2024 1:43 PM EDT): No recent seizures Continue current meds Assessment & Plan (09/19/2023 3:04 PM EST): No recent seizures Continue current meds Insomnia 08/14/2023 Assessment & Plan (10/14/2024 3:13 PM EDT): Quetiapine, etc I suspect some intermittent issue with sleep is d/t her steroids She will address this with rheumatology this week Assessment & Plan (09/19/2023 3:05 PM EST): No changes to meds THOMAS (obstructive sleep apnea) 08/14/2023 Overview (08/14/2023): sleep study: AHI 7, minimum oxygen saturation is 87% GERD (gastroesophageal reflux disease) Assessment & Plan (12/17/2024 4:42 PM EDT): Recommendations: freq small meals, nothing to eat or drink at least 2 hours prior to bed, limit caffeine, alcohol, as well as spicy foods Meds to limit or avoid if possible: NSAIDS Elevate HOB if possible Currently taking PPI, will stop omeprazole and start pantoprazole Assessment & Plan (10/14/2024 7:26 AM EDT): Recommendations: freq small meals, nothing to eat or drink at least 2 hours prior to bed, limit caffeine, alcohol, as well as spicy foods Meds to limit or avoid if possible: NSAIDS Elevate HOB if possible Currently taking PPI Assessment & Plan (07/04/2024 7:32 AM EST): Recommendations: freq small meals, nothing to eat or drink at least 2 hours prior to bed, limit caffeine, alcohol, as well as spicy foods Meds to limit or avoid if possible: NSAIDS Elevate HOB if possible Currently taking PPI Assessment & Plan (12/18/2023 3:16 PM EDT): Will trial change in PPI Fu in 6 weeks Spondylosis, lumbosacral 08/14/2023 Osteoporosis 08/14/2023 Overview (07/04/2024): DEXA: 10/20/22: spine -2.3 and hip -3.0 Assessment & Plan (07/04/2024 7:33 AM EST): Continue w fosamax Last DEXA: 10/20/22 Assessment & Plan (04/29/2024 6:06 PM EDT): Will start fosamax, when ok from dental provider Assessment & Plan (12/18/2023 3:18 PM EDT): Needs prolia Rheumatoid arthritis, unspecified 08/14/2023 Assessment & Plan (12/17/2024 4:43 PM EDT): Continue with rheumatolgist ?? Meds aggravating stomach?? Assessment & Plan (04/29/2024 6:08 PM EDT): Continue with rheumatolgist Migraines 08/14/2023 Assessment & Plan (10/14/2024 7:27 AM EDT): Current med: topamax Hypomagnesemia 08/14/2023 Assessment & Plan (10/14/2024 7:27 AM EDT): Taking supplement daily Takes PPI daily as well Check labs yearly and prn changes in sxs Mixed hyperlipidemia 07/27/2023 Assessment & Plan (10/14/2024 7:28 AM EDT): Continue statin Check labs yearly and prn dose changes Assessment & Plan (07/04/2024 7:34 AM EST): Continue statin Check labs yearly and prn dose changes Elevated serum creatinine 07/27/2023 Age-related osteoporosis wit hout current pathological fracture 07/25/2023 Overview (01/22/2024): DEXA scan 10/20/22 spine -2.3, hip -3.0 Assessment & Plan (10/14/2024 7:26 AM EDT): Last DEXA 10/20/24: -3.0 Current meds: fosamax, and vit d Assessment & Plan (01/22/2024 3:43 PM EDT): DEXA 10/20: -3.0 No fosamax d/t GERD, last Prolia shot 12/20 Going to have teeth pulled in March Will check with [facility] MARY (generalized anxiety disorder) 07/22/2023 Assessment & Plan (10/14/2024 2:58 PM EDT): Current meds: sertraline, seroquel, abilify MARY 7= 14 Assessment & Plan (07/04/2024 2:19 PM EST): No changes to med MARY=2 Assessment & Plan (06/05/2024 2:28 PM EST): No changes to med dose Assessment & Plan (04/29/2024 6:07 PM EDT): Poncho cottos are working great Assessment & Plan (12/18/2023 3:19 PM EDT): Poncho cottos are working great Hypothyroidism (acquired) 07/03/2023 Assessment & Plan (10/14/2024 7:26 AM EDT): Continue levothyroxine Labs yearly and prn Assessment & Plan (07/04/2024 7:34 AM EST): Continue levothyroxine Labs yearly and prn Assessment & Plan (04/29/2024 6:07 PM EDT): Will recheck in next few weeks to see if needs dose change Assessment & Plan (12/18/2023 3:18 PM EDT): Check labs Still has not got her US of thyroid done Assessment & Plan (09/19/2023 3:05 PM EST): No changes in med dose Resolved Problems Problem Noted Date Diagnosed Date Resolved Date URI, acute 09/26/2023 04/02/2024 Epilepsy 09/11/2023 04/29/2024 Assessment & Plan (04/29/2024 6:06 PM EDT): Continue topirimate Will monitor Chronic bronchitis 08/20/2023 Assessment & Plan (04/02/2024 1:43 PM EDT): Continue the use of anoro and albuterol Tobacco user 08/14/2023 10/01/2024 Assessment & Plan (07/04/2024 7:27 AM EST): The patient has been advised of the risks of continued smoking: stroke, MO, all forms of cancer, lung disease, and . Options for quitting smoking include: cold turkey, hypnosis, acupuncture, nicotine replacement meds (gum, lozenges, and patches), Buproprion, and Varenicline. At this time pt is encouraged to evaluate their goals for wanting to quit smoking, and reach out to provider when ready to start this process Assessment & Plan (06/05/2024 7:11 AM EST): The patient has been advised of the risks of continued smoking: stroke, MO, all forms of cancer, lung disease, and . Options for quitting smoking include: cold turkey, hypnosis, acupuncture, nicotine replacement meds (gum, lozenges, and patches), Buproprion, and Varenicline. At this time pt is encouraged to evaluate their goals for wanting to quit smoking, and reach out to provider when ready to start this process Assessment & Plan (04/02/2024 1:45 PM EDT): The patient has been advised of the risks of continued smoking: stroke, MO, all forms of cancer, lung disease, and . Options for quitting smoking include: cold turkey, hypnosis, acupuncture, nicotine replacement meds (gum, lozenges, and patches), Buproprion, and Varenicline. At this time pt is encouraged to evaluate their goals for wanting to quit smoking, and reach out to provider when ready to start this process Patches, smokes 1ppd, for 40 years Start with 21mg patch Assessment & Plan (01/22/2024 3:41 PM EDT): The patient has been advised of the risks of continued smoking: stroke, MO, all forms of cancer, lung disease, and . Options for quitting smoking include: cold turkey, hypnosis, acupuncture, nicotine replacement meds (gum, lozenges, and patches), Buproprion, and Varenicline. At this time pt is encouraged to evaluate their goals for wanting to quit smoking, and reach out to provider when ready to start this process HLD (hyperlipidemia) 08/14/2023 025 Assessment & Plan (10/14/2024 7:27 AM EDT): On statin therapy Check labs yearly and prn dose changes Depression with anxiety 08/14/2023 0310/2024 Overview (07/04/2024): 10/20/22: MARY 7 score=18, PHQ 9 score=18 07/04/2024: MARY 7 score =2, PHQ 9 score= 5 Assessment & Plan (07/04/2024 2:20 PM EST): MARY 7= 2, PHQ 9= 5 Stable on current meds Assessment & Plan (04/29/2024 6:07 PM EDT): Stable on current meds Anxiety and depression 08/10/202304/02 Assessment & Plan (12/18/2023 3:19 PM EDT): Meds are doing well, no dose changes needed Assessment & Plan (09/19/2023 3:06 PM EST): Doing well on current meds, no changes Anxiety 07/03/2023 08/10/2023 Major depressive disorder wi th single episode, in remission (HCC) 07/03/2023 08/10/2023 Encounters Date Type Department Care Team Description 12/17/2024 4:00 PM EDT Office Visit [facility] [address] [place] [address] Minda Yeboah NP Hematemesis, unspecified whether nausea present (Primary Dx); Gastroesophageal reflux disease, unspecified whether esophagitis present; Rheumatoid arthritis with positive rheumatoid factor, involving unspecified site (CMS/HCC); Cigarette nicotine dependence without complication; Encounter for screening mammogram for malignant neoplasm of breast; Diarrhea, unspecified type; Multiple thyroid nodules (CMS/HCC); Obesity with body mass index (BMI) of 30.0 to 39.9 12/17/2024 Orders Only [facility] [address] [place] [address] Minda Yeboah NP Multiple thyroid nodules (CMS/HCC) (Primary Dx) 10/14/2024 2:20 PM EDT Office Visit [facility] [address] [place] [id number] Minda Yeboah NP Hypothyroidism (acquired) (CMS/HCC) (Primary Dx); Rheumatoid arthritis, unspecified (CMS/HCC); Chronic kidney disease, stage 3a (HCC) (CMS/HCC); Seizures (CMS/HCC); Gastroesophageal reflux disease, unspecified whether esophagitis present; Age-related osteoporosis without current pathological fracture (CMS/HCC); Cigarette nicotine dependence without complication; MARY (generalized anxiety disorder) (CMS/HCC); Hypomagnesemia; Migraine without status migrainosus, not intractable, unspecified migraine type (CMS/HCC); Mild episode of recurrent major depressive disorder (HCC) (CMS/HCC); Mixed hyperlipidemia (CMS/HCC) ; Osteoporosis, unspecified osteoporosis type, unspecified pathological fracture presence (CMS/HCC); Major depressive disorder with single episode, in remission (HCC) (CMS/HCC); Vitamin D deficiency; Environmental and seasonal allergies; Anxiety and depression (CMS/HCC); Simple chronic bronchitis (CMS/HCC) ; Insomnia, unspecified type 10/14/2024 Bamboo flowsheet [facility] [address] [place] [phone] Minda Yeboah NP 10/04/2024 Refill [facility] [address] [place] [address] Minda Yeboah NP Vitamin D deficiency; Environmental and seasonal allergies from Last 3 Months Immunizations Immunization Administration Dates Next Due Influenza, injectable, quadrivalent, preservativ e free 03/24/2015 Family History Medical History Relation Name Comments Heart disease Father Hypertension Father Heart disease Maternal Grandmother Arthritis Mother Cancer Mother Ovarian & Uteru s Hypertension Mother Hypothyroidism Mother Rheum arthritis Mother Heart disease Other Hypertension Other Relation Name Status Comments Father Maternal Grandmother Mother Other Social History Tobacco Use Types Packs/Day Years Used Date Smoking Tobacco: Every Day Cigarettes 1 43.4 Started: 1981 Tobacco Cessation:Ready to Q uit: No; Counseling Given: Yes Alcohol Use Standard Drinks/Week Comments Never 0 (1 standard drink = 0.6 oz pur e alcohol) coffee: 2-3cups daily PHQ-2 Answer Date Recorded Patient Health Questionnaire-2 Score 0 07/04/2024 Comments Unknown Sex and Gender Information Value Date Recorded Sex Assigned at Not on file Legal Sex Female 11:44 AM EDT Gender Identity Not on file Sexual Orientation Not on file Last Filed Vital Signs Vital Sign Reading [...] oz) 12/17/2024 4:00 P M EDT Height 170.2 cm (5' 7 ) 07/04/2024 1:57 PM EST Body Mass Index 31.51 07/04/2024 1:57 PM EST Plan of Treatment Upcoming Encounters Date Type Department Care Team (Late st Contact Info) Description 01/13/2025 1:00 PM EDT Office Visit [facility] [address] [place] [address] Minda Yeboah NP [address] [place] [address] Health Maintenance Due Date Last Done Comments CT Colonography 1967 FIT 1967 FOBT 1965 Sigmoidoscopy 1965 HPV/Cotest 11/01/1997 Colonoscopy 12/18/2019 12/17/2009 Mammogram 08/17/2024 08/17/2023, 08/17/2023 Cervical Cancer Screening 09/19/2026 Pap Smear 09/19/2026 09/19/2023 (Lynne ent Refused), 11/25/2009 Colorectal Cancer Screening 09/21/2026 FIT-DNA 09/21/2026 09/21/2023, 04/14/2023 Influenza Vaccine Discontinued 03/24/2015 Procedures Procedure Name Priority Date/Time Associated Diagnosis Comments LAB COLOGUARD COLON CANCER SCREEN Routine 09/21/2023 6:48 PM EST MM TOMOSYNTHESIS SCREENING BI 08/17/2023 3:41 PM EST from Last 3 Months or Most Recently Relevant to Health Maintenance Results * Cologuard?? colon cancer screening (09/21/2023 6:48 PM EST) Stool Minda Yeboah NP LAB MOLECULAR DIAGNOSTICS ORDER SILVA Final Result * MM TOMOSYNTHESIS SCREENING BI (08/17/2023 3:41 PM EST) Anatomical Region Laterality Modality Other 08/17/2023 3:41 PM EST Narrative 08/17/2023 3:42 PM EST The [address] [address] Mammography Report Signed Patient: BENTON CARRERO MR#: [id number] : 1965 Acct:[id number] Age/Sex: 57 / F ADM Date: 08/17/23 Loc: INF Attending Dr: Minda Yeboah NP Ordering Physician: Minda Yeboah NP Results: Date of Service: 08/17/23 Follow Up: Procedure(s): MM tomosynthesis screening BI Accession Number(s): [id number] cc: Minda Yeboah NP Patient Name: BENTON CARRERO MR#: [id number] : 1965 Exam Date: 08/17/2023 Ordering Doctor: CHERYL Yeboah CNP RADIOLOGY REPORT PROCEDURE: MM TOMOSYNTHESIS SCREENING BI COMPARISON: MG MAMM CLARIBEL DIAG W CAD DIG, 01/15/2016. INDICATIONS: Screening Calculator Name NCI Breast Cancer Risk Assessment Tool 5 Year Breast Cancer Risk 1.00% Lifetime Breast Cancer Risk 6.70% Personal Breast Cancer No Personal Ovarian Cancer No Treatments None Family Cancers Mother with uterine cancer at age 20. LOCATION: [facility] BREAST COMPOSITION: Heterogeneously dense,which may obscure small masses. FINDINGS: DIAGNOSTIC CATEGORY 1--NEGATIVE. NO CHANGE FROM COMPARISON ASSESSMENT. Scattered benign-appearing lymph nodes are present. RIGHT BREAST: No significant suspicious finding. LEFT BREAST: No significant suspicious finding. RECOMMENDATIONS: ROUTINE MAMMOGRAM AND CLINICAL EVALUATION IN 12 MONTHS. PLEASE NOTE: A NORMAL MAMMOGRAM DOES NOT EXCLUDE THE POSSIBILITY OF BREAST CANCER. A CLINICALLY SUSPICIOUS PALPABLE LUMP SHOULD BE BIOPSIED. Dictated by: Juan Blakely MD on 08/17/2023 at 15:38 Approved by: Juan Blakely MD on 08/17/2023 at 15:41 Dictated By: Juan Blakely M.D. Signed By: 08/17/23 1542 DD/ 1541 TD/TT: Shift Foreman: Procedure Note Radiology, Radiologist, MD - 08/17/2023 [place] [address] Mammography Report Signed Patient: BENTON CARRERO MMR#: [id number] : 1965Acct:[id number] Age/Sex: 57 / FADM Date: 08/17/23 Loc: INF Attending Dr: Minda Yeboah NP Ordering Physician: Minda Yeboah NPResults: Date of Service: 08/17/23Follow Up: Procedure(s): MM tomosynthesis screening BI Accession Number(s): [id number] cc: Minda Yeboah NP Patient Name: BENTON CARRERO MR#: [id number] : 1965 Exam Date: 08/17/2023 Ordering Doctor: CHERYL Yeboah CNP RADIOLOGY REPORT PROCEDURE: MM TOMOSYNTHESIS SCREENING BI COMPARISON: MG MAMM CLARIBEL DIAG W PITO DIG, 01/15/2016. INDICATIONS: Screening Calculator Name NCI Breast Cancer Risk Assessment Tool 5 Year Breast Cancer Risk 1.00% Lifetime Breast Cancer Risk 6.70% Personal Breast Cancer No Personal Ovarian Cancer No Treatments None Family Cancers Mother with uterine cancer at age 20. LOCATION: [facility] BREAST COMPOSITION: Heterogeneously dense,which may obscure smallmasses. FINDINGS: DIAGNOSTIC CATEGORY 1--NEGATIVE. NO CHANGE FROM COMPARISON ASSESSMENT. Scattered benign-appearing lymph nodes are present. RIGHT BREAST: No significant suspicious finding. LEFT BREAST: No significant suspicious finding. RECOMMENDATIONS: ROUTINE MAMMOGRAM AND CLINICAL EVALUATION IN 12 MONTHS. PLEASE NOTE: A NORMAL MAMMOGRAM DOES NOT EXCLUDE THE POSSIBILITY OFBREAST CANCER. A CLINICALLY SUSPICIOUS PALPABLE LUMP SHOULD BE BIOPSIED. Dictated by: Juan Blakely MD on 08/17/2023 at 15:38 Approved by: Juan Blakely MD on 08/17/2023 at 15:41 Dictated By: Juan Blakely M.D. Signed By:08/17/23 1542 DD/ 1541 TD/TT: Shift Foreman: Minda Yeboah NP [facility] Final Result from Last 3 Months or Most Recently Relevant to Health Maintenance Insurance [facility] [place] Care Teams Paper Sealer Relationship Specialty Start Date End Date Tony Mathur MD [address] [place] [address] PCP - General Family Medicine 09/19/23 Minda Yeboah NP [address] [place] [address] Referring Physician Nurse Practitioner 02/10/23 Minda Yeboah NP [address] [place] [address] Nurse Practitioner Family Medicine 09/19/23
--- OUTSIDE RECORDS SUMMARY | 2024-12-18 15:32 | XMS_ITS | Encounter Summary ---
Author Organization [facility] Address [address] [facility] [place] [address] Care Team Providers Care Clinical Program Coordinator Name Role Phone Minda Yeboah NP Unavailable [phone] Tony Mathur MD Primary Care Provider [phone] Minda Yeboah NP Unavailable [phone] Encounter Details Date Type Department Care Team (Late Contact Info) Description 12/19/2023 Clinisync Result Encounter [facility] External Department Unsolicited Provider, Generic External Data Social History Tobacco Use Types Packs/Day Years [...] Visit [facility] [address] [place] [address] Minda Yeboah NP [address] [place] [address] documented as of this encounter Procedures Procedure Name Priority Date/Time Associated Diagnosis Comments XR CERVICAL SPINE 5V 12/19/2023 11:16 AM EDT documented in this encounter Results * XR CERVICAL SPINE 5V (12/19/2023 11:16 AM EDT) Anatomical Region Laterality Modality Other 12/19/2023 11:1 6 AM EDT Narrative 12/19/2023 11:19 [place] [address] XRay Report Signed Patient: BENTON CARRERO MR#: [id number] : 1965 Acct:[id number] Age/Sex: 58 / F ADM Date: 12/18/23 Loc: RAD Attending Dr: Non-Staff Physician Kenneth Ordering Physician: PhysicianBrittaStaff Kenneth Date of Service: 12/18/23 Procedure(s): XR cervical spine 5V Accession Number(s): [id number] cc: Minda Yeboah DERRICK BOAT RUNNER; PhysicianBrittaStaff Kenneth [place] [id number] Patient Name: BENTON CARRERO MRN: [id number] date: 1965 Sex: F Assigned Patient Location: [facility] Current Patient Location: LAB Accession/Order Number: [id number] Exam Date: 12/18/2023 15:30 Report Date: 12/19/2023 11:16 At the request of: NON-STAFF PHYSICIAN Procedure: XR cervical spine 5V EXAMINATION: XR cervical spine 5V HISTORY: Degenerative disc disease M50.30 COMPARISON: No relevant comparison available. FINDINGS: BONES: No significant spondylosis, scoliosis, fracture, or visible bony lesion. DISC SPACES: Slight narrowing C4-5, C5-6, C6-7. PARASPINOUS: Negative. No paraspinous abnormality is seen. OTHER: Negative. XR/XR cervical spine 5V IMPRESSION: 1. No appreciable acute abnormality. 2. Multilevel mild degenerative disc disease and minimal degenerative facet arthropathy. Electronically authenticated by: MAURICIO PEACOCK Date: 12/19/2023 11:16 Dictated By: Mauricio Peacock M.D. Signed By: 12/19/23 1119 DD/ 15 TD/TT: Deck Mechanic: Procedure Note Radiology, Radiologist, - 12/19/2023 [place] [id number] XRay Report Signed Patient: BENTON CARRERO MMR#: [id number] : 1965Acct:[id number] Age/Sex: 58 / FADM Date: 12/18/23 Loc: RAD Attending Dr: Non-Staff Physician Kenneth Ordering Physician: PhysicianNon-Staff Kenneth Date of Service: 12/18/23 Procedure(s): XR cervical spine 5V Accession Number(s): [id number] cc: Minda Yeboah NP; PhysicianLatoya M.D. [facility] [place] [id number] Patient Name: BENTON CARRERO MRN: [id number] date: 1965 Sex: F Assigned Patient Location: [facility] Current Patient Location: LAB Accession/Order Number: [id number] Exam Date: 12/18/2023 15:30 Report Date: 12/19/2023 11:16 At the request of: NON-STAFF PHYSICIAN Procedure: XR cervical spine 5V EXAMINATION: XR cervical spine 5V HISTORY: Degenerative disc disease M50.30 COMPARISON: No relevant comparison available. FINDINGS: BONES: No significant spondylosis, scoliosis, fracture, or visible bony lesion. DISC SPACES: Slight narrowing C4-5, C5-6, C6-7. PARASPINOUS: Negative. No paraspinous abnormality is seen. OTHER: Negative. XR/XR cervical spine 5V IMPRESSION: 1. No appreciable acute abnormality. 2. Multilevel mild degenerative disc disease and minimal degenerativefacet arthropathy. Electronically authenticated by: MAURICIO PEACOCK Date: 12/19/2023 11:16 Dictated By: Mauricio Peacock M.D. Signed By:12/19/23 1119 DD/ 15 TD/TT: Deck Mechanic: Generic External Data Provider [facility] Final Result documented in this encounter Visit Diagnoses Not on filedocumented in this encounter Care Teams Clinical Program Coordinator Relationship Specialty Start Date End Date Tony Mathur MD [address] [place] [address] PCP - General Family Medicine 09/19/23 Minda Yeboah NP [address] [place] [address] Referring Physician Nurse Practitioner 02/10/23 Minda Yeboah NP [address] [place] [address] Nurse Practitioner Family Medicine 09/19/23 documented as of this encounter
--- OUTSIDE RECORDS SUMMARY | 2024-12-18 15:32 | XMS_ITS | Encounter Summary ---
Author Organization [facility] Address [address] [place] [facility] [place] [address] Care Team Providers Care Repeat Photocomposing Machine Operator Name Role Phone Minda Yeboah NP Unavailable [phone] Tony Mathur MD Primary Care Provider [phone] Minda Yeboah NP Unavailable [phone] Encounter Details Date Type Department Care Team (Late st Contact Info) Description 08/22/2024 Orders Only [facility] [address] [place] [address] Unallocated, Noms Provider, [address] [place], [place] [address] Social History Tobacco Use Types Packs/Day Years [...] 1:00 PM EDT Office Visit [facility] [address] [place] [address] Minda Yeboah NP [address] [place] [address] documented as of this encounter Procedures Procedure Name Priority Date/Time Associated Diagnosis Comments CT HEAD WO IV CONTRAST Routine 08/21/2024 8:12 AM EST documented in this encounter Results * CT head wo IV contrast (08/21/2024 8:12 AM EST) Anatomical Region Laterality Modality Head, Neck Computed Tomogra phy us Noms Provider Unallocated MD MEDINA CT PROCEDURES F inal Result documented in this encounter Visit Diagnoses Not on filedocumented in this encounter Care Teams Repeat Photocomposing Machine Operator Relationship Specialty Start Date End Date Tony Mathur MD [address] [place] [address] PCP - General Family Medicine 09/19/23 Minda Yeboah NP [address] [place] [address] Referring Physician Nurse Practitioner 02/10/23 Minda Yeboah NP [address] [place] [address] Nurse Practitioner Family Medicine 09/19/23 documented as of this encounter
--- OUTSIDE RECORDS SUMMARY | 2024-12-18 15:32 | XMS_ITS | Encounter Summary ---
Author Organization [facility] Address [id number] [address] [place] [address] Care Team Providers Care Senior Major Gifts Officer Name Role Phone Unavailable Primary Care Provider Unavailabl e Encounter Details Date Type Department Care Team (Late st Contact Info) Description 02/27/2023 Telephone [facility] [address] [address] Codie Hopkins CMA Social History Tobacco Use Types Packs/Day Years Used Date Smoking Tobacco: Never Assessed Childcare Answer Date Recorded Childcare Unknown 01/09/2019 Employment Answer Date Recorded Employment Unknown 01/09/2019 Comments Unknown Sex and Gender Information Value Date Recorded Sex Assigned at Not on file Legal Sex Female 11:26 AM EDT Gender Identity Not on file Sexual Orientation Not on file documented as of this encounter Miscellaneous Notes * Telephone Encounter - Codie Hopkins CMA - 02/27/2023 3:02 PM EDT Sydney called regarding lab results???Please advise. Thanks documented in this encounter Plan of Treatment Upcoming Encounters Date Type Department Care Team (Late st Contact Info) Description 01/16/2025 12:30 PM EDT Office Visit [facility] Department of [facility] [address] [address] Cristian Szymanski MD [address] [address] documented as of this encounter Visit Diagnoses Not on filedocumented in this encounter
--- OUTSIDE RECORDS SUMMARY | 2024-12-18 15:32 | XMS_ITS | Encounter Summary ---
Author Organization [facility] Address [address] [place] [address] Care Team Providers Care Merry Go Round Attendant Name Role Phone Tony Mathur MD Primary Care Provider [phone] Minda Yeboah SLAB STRIPPER Unavailable [phone] Tony Mathur MD Primary Care Provider [phone] Minda Yeboah SLAB STRIPPER Unavailable [phone] Encounter Details Date Type Department Care Team (Late st Contact Info) Description 08/17/2023 Clinisync Result Encounter [facility] External Department Unsolicited Minda Yeboah NP [address] [place] [address] Social History Tobacco Use Types Packs/Day Years Used Date Smoking Tobacco: Every Day Cigarettes 1 43.4 Started: 1981 Comments Unknown Sex and Gender Information Value Date Recorded Sex Assigned at Not on file Legal Sex Female 11:44 AM EDT Gender Identity Not on file Sexual Orientation Not on file documented as of this encounter Plan of Treatment Upcoming Encounters Date Type Department Care Team (Late st Contact Info) Description 01/13/2025 1:00 PM EDT Office Visit [facility] [address] [place] [address] Minda Yeboah NP [address] [place] [address] documented as of this encounter Procedures Procedure Name Priority Date/Time Associated Diagnosis Comments MM TOMOSYNTHESIS SCREENING BI 08/17/2023 3:41 PM EST documented in this encounter Results * MM TOMOSYNTHESIS SCREENING BI (08/17/2023 3:41 PM EST) Anatomical Region Laterality Modality Other 08/17/2023 3:41 PM EST Narrative 08/17/2023 3:42 [place] [address] Mammography Report Signed Patient: BENTON CARRERO MR#: [id number] : 1965 Acct:[id number] Age/Sex: 57 / F ADM Date: 08/17/23 Loc: INF Attending Dr: Minda Yeboah NP Ordering Physician: Minda Yeboah NP Results: Date of Service: 08/17/23 Follow Up: Procedure(s): MM tomosynthesis screening BI Accession Number(s): [id number] cc: Minda Yeboah NP Patient Name: BENTON CARRERO MR#: [id number] : 1965 Exam Date: 08/17/2023 Ordering Doctor: [...] uterine cancer at age 22. LOCATION: [facility] BREAST COMPOSITION: Heterogeneously dense,which may obscure small [...] Blakely M.D. Signed By: 08/17/23 1542 DD/ 154 TD/TT: Supervisor Pre Wave: Procedure Note Radiology, Radiologist, - 08/17/2023 [place] [address] Mammography Report Signed Patient: BENTON CARRERO MMR#: [id number] : 1965Acct:[id number] Age/Sex: 57 / FADM Date: 08/17/23 Loc: INF Attending Dr: Minda Yeboah NP Ordering Physician: Minda Yeboah NPResults: Date of Service: 08/17/23Follow Up: Procedure(s): MM tomosynthesis screening BI Accession Number(s): [id number] cc: Minda Yeboah NP Patient Name: BENTON CARRERO MR#: [id number] : 1965 Exam Date: 08/17/2023 Ordering Doctor: CHERYL Yeboah HEATING SYSTEMS INSTALLER RADIOLOGY REPORT PROCEDURE: MM TOMOSYNTHESIS SCREENING BI COMPARISON: MG MAMM CLARIBEL DIAG W CAD DIG, 01/15/2016. INDICATIONS: Screening Calculator Name NCI Breast Cancer Risk Assessment Tool 5 Year Breast Cancer Risk 1.00% Lifetime Breast Cancer Risk 6.70% Personal Breast Cancer No Personal Ovarian Cancer No Treatments None Family Cancers Mother with uterine cancer at age 20. LOCATION: [facility] BREAST COMPOSITION: Heterogeneously dense,which may obscure smallmasses. [...] Juan Blakely M.D. Signed By:08/17/23 1542 DD/ 154 TD/TT: Supervisor Pre Wave: Minda Yeboah NP [facility] Final Result documented in this encounter Visit Diagnoses Not on filedocumented in this encounter Care Teams Merry Go Round Attendant Relationship Specialty Start Date End Date Tony Mathur MD PCP - General Family Medicine 02/10/23 09/18/23 Tony Mathur MD [address] [place] [address] PCP - General Family Medicine 09/19/23 Minda Yeboah NP [address] [place] [address] Referring Physician Nurse Practitioner 02/10/23 Minda Yeboah NP [address] [place] [address] Nurse Practitioner Family Medicine 09/19/23 documented as of this encounter
--- OUTSIDE RECORDS SUMMARY | 2024-12-18 15:32 | XMS_ITS | Encounter Summary ---
Author Organization [facility] Address [address] [facility] [place] [address] Care Team Providers Care Retail Sales Manager Name Role Phone Minda Yeboah NP Unavailable [phone] Tony Mathur MD Primary Care Provider [phone] Minda Yeboah NP Unavailable [phone] Encounter Details Date Type Department Care Team (Late Contact Info) Description 09/28/2023 Orders Only [facility] [address] [place] [address] Minda Yeboah NP [address] [place] [phone] Social History Tobacco Use Types Packs/Day Years [...] Encounters Date Type Department Care Team (Late Contact Info) Description 01/13/2025 1:00 PM EDT Office Visit [facility] [address] [place] [phone] Minda Yeboah NP [address] [place] [address] documented as of this encounter Procedures Procedure Name Priority Date/Time Associated Diagnosis Comments LAB COLOGUARD COLON CANCER SCREEN Routine 09/21/2023 6:48 PM EST documented in this encounter Results * Cologuard?? colon cancer screening (09/21/2023 6:48 PM EST) Stool us Minda Yeboah NP LAB MOLECULAR DIAGNOSTICS ORDER SILVA Final Result documented in this encounter Visit Diagnoses Not on filedocumented in this encounter Care Teams Retail Sales Manager Relationship Specialty Start Date End Date Tony Mathur MD [address] [place] [address] PCP - General Family Medicine 09/19/23 Minda Yeboah NP [address] [place] [address] Referring Physician Nurse Practitioner 02/10/23 Minda Yeboah NP [address] [place] [address] Nurse Practitioner Family Medicine 09/19/23 documented as of this encounter
--- OUTSIDE RECORDS SUMMARY | 2024-12-18 15:32 | XMS_ITS | Encounter Summary ---
Author Organization [facility] Address [address] [facility] [place] [address] Care Team Providers Care Social Service Assistant Name Role Phone Tony Mathur MD Primary Care Provider [phone] Minda Yeboah TIE PRESSER Unavailable [phone] Tony Mathur MD Primary Care Provider [phone] Minda Yeboah TIE PRESSER Unavailable [phone] Reason for Visit * Reason Comments Med Refill Encounter Details Date Type Department Care Team (Late Contact Info) Description 07/27/2023 Refill [facility] [address] [place] [address] Minda Yeboah NP [address] [place] [address] Mixed hyperlipidemia (CMS/HCC) (Primary Dx); Elevated serum creatinine Social History Tobacco Use Types Packs/Day Years [...] 01/13/2025 1:00 PM EDT [facility] [address] [place] [address] Minda Yeboah NP [address] [place] [address] documented as of this encounter Visit Diagnoses Diagnosis Mixed hyperlipidemia (CMS/HCC)- Primary Mixed hyperlipidemia Elevated serum creatinine Other nonspecific findings on examination of blood documented in this encounter Care Teams Social Service Assistant Relationship Specialty Start Date End Date Tony Mathur MD PCP - General Family Medicine 02/10/23 09/18/23 Tony Mathur MD [address] [place] [address] PCP - General Family Medicine 09/19/23 Minda Yeboah NP [address] [place] [address] Referring Physician Nurse Practitioner 02/10/23 Minda Yeboah NP [address] [place] [address] Nurse Practitioner Family Medicine 09/19/23 documented as of this encounter
--- OUTSIDE RECORDS SUMMARY | 2024-12-18 15:32 | XMS_ITS | Clinical Summary ---
Author Organization [employer] tem Address [id number] [address] [place] [address] Care Team Providers Care Alum Plant Supervisor Name Role Phone Unavailable Primary Care Provider Unavailabl e Allergies No known active allergies Medications acetaminophen (TYLENOL) 325 mg tablet Take 2 tablets (650 mg total) by mouth. Active albuterol (PROVENTIL HFA;VENTOLIN HFA) 90 mcg/actuation inhaler inhale 2 puffs by mouth and INTO THE LUNGS every 6 hours if needed for SHORTNESS OF BREATH Active amoxicillin-pot clavulanate (AUGMENTIN) 500-125 mg per tablet Active amoxicillin-pot clavulanate (AUGMENTIN) 875-125 mg per tablet take 1 tablet by mouth twice a day with food 3 Active atorvastatin (LIPITOR) 10 mg tablet 2 Active fluticasone propionate (FLONASE) 50 mcg/actuation nasal spray instill 2 sprays into each nostril once daily Active levothyroxine (SYNTHROID, LEVOTHROID) 75 MCG tablet 3 Active QUEtiapine (SEROquel) 100 mg tablet take 1 tablet by mouth at bedtime WITH 50 MG TABLET Active magnesium oxide (MAGOX) 400 mg tablet 3 Active topiramate (TOPAMAX) 25 mg tablet take 1 tablet by mouth twice a day WITH 100 MG TABLET Active topiramate (TOPAMAX) 100 mg tablet take 1 tablet by mouth twice a day WITH 25 MG TABLET Active methotrexate 2.5 mg chemo tablet 5 tablets once a week. Dispense 2.5 mg tablets. 60 tablet 1 5 Active folic acid (FOLVITE) 1 mg tablet Take 1 tablet (1 mg total) by mouth in the morning. Except days of taking methotrexate.. 90 tablet 1 5 Active predniSONE (DELTASONE) 5 mg tablet 7.5 mg daily for one week then 5 mg daily for one week then 2.5 mg daily for one week 21 tablet 5 Active cyclobenzaprine (FLEXERIL) 5 mg tabletIndication s:DDD (degenerative disc disease), cervical Take 1 tablet (5 mg total) by mouth nightly as needed for muscle spasms. 90 tablet 1 5 Active Active Problems No known active problems Encounters Date Type Department Care Team Description 10/24/2024 Telephone [facility] Department of [facility] [address] [address] Tequila Barry [facility] 10/21/2024 Telephone [facility] Department of [facility] [address] [address] Codie Hopkins [facility] 10/17/2024 12:30 PM EDT Office Visit [facility] Department of [facility] [address] [address] Cristian Szymanski MD 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); Inflammatory arthritis; Multiple joint pain; Degeneration of intervertebral disc of lumbar region with discogenic back pain; Medication monitoring encounter; DDD (degenerative disc disease), cervical 10/17/2024 Travel from Last 3 Months Social History Tobacco Use Types Packs/Day Years [...] Sign Reading Time Taken Comments Blood Pressure 110/78 08/19/2024 1:59 PM EST Pulse 58 08/19/2024 1:59 PM EST Temperature - - Respiratory Rate 16 10/17/2024 12:42 PM EDT Oxygen Saturation - - Inhaled Oxygen Concentration - - Weight 95.3 kg (210 lb) 10/17/2024 12:42 PM EDT Height 170.2 cm (5' 7 ) 10/17/2024 12:42 PM EDT Body Mass Index 32.89 10/17/2024 12:42 PM EDT Plan of Treatment Upcoming Encounters Date Type Department Care Team (Late st Contact Info) Description 01/16/2025 12:30 PM EDT [facility] Visit [facility] [address] [address] Cristian Szymanski MD [address] [facility] [address] [place] [address] Health Maintenance Due Date Last Done Comments Depression Screening 1979 Tobacco Screening 1979 Adult BMI Follow Up Plan 11/01/1985 DTaP,Tdap and Td Vaccines (1 - Tdap) 11/01/1986 Pap Smear 11/01/1988 Zoster (Shingles) Vaccine (1 of 2) 11/01/2017 Influenza Vaccine 03/31/2025 03/24/2015 Adult BMI Screening 10/17/2025 10/17/2024 Medical Devices Not on file Insurance ON LICENSE OF [facility] MEDICAID
--- OUTSIDE RECORDS SUMMARY | 2024-12-18 15:32 | XMS_ITS | Encounter Summary ---
Author Organization [facility] Address [address] [place] [address] Care Team Providers Care Public Area Attendant Name Role Phone Minda Yeboah YARD JACKER Unavailable [phone] Tony Mathur MD Primary Care Provider [phone] Minda Yeboah YARD JACKER Unavailable [phone] Reason for Visit * Reason Comments Med Change Request Encounter Details Date Type Department Care Team (Late st Contact Info) Description 07/04/2024 Refill [facility] [address] [place] [address] Minda Yeboah NP [address] [place] [address] Seizures ([facility] Social History Tobacco Use Types Packs/Day Years [...] on file documented as of this encounter Functional Status * Over the past 2 weeks, how often have you been bothered by any of the following problems? Question Answer Date of Assessment Author Little interest or pleasure in doing things Not at all 07/04/2024 1:59 PM JOE ARCINIEGA Feeling down, depressed, or hopeless Not at all 07/04/2024 1:59 PM JOE ARCINIEGA Patient Health Questionnaire -2 Score 0 07/04/2024 1:59 PM JOE ARCINIEGA documented as of this encounter Plan of Treatment Upcoming Encounters Date Type Department Care Team (Late st Contact Info) Description 01/13/2025 1:00 PM EDT Office Visit [facility] [address] [place] [address] Minda Yeboah NP [address] [place] [address] documented as of this encounter Visit Diagnoses Diagnosis Seizures (CMS/HCC) Other convulsions documented in this encounter Care Teams Public Area Attendant Relationship Specialty Start Date End Date Tony Mathur MD [address] [place] [address] PCP - General Family Medicine 09/19/23 Minda Yeboah NP [address] [place] [address] Referring Physician Nurse Practitioner 02/10/23 Minda Yeboah NP [address] [place] [address] Nurse Practitioner Family Medicine 09/19/23 documented as of this encounter
--- OUTSIDE RECORDS SUMMARY | 2024-12-18 15:32 | XMS_ITS | Encounter Summary ---
[facility] Organization [facility] [employer] s tem Address [id number] [address] [place] [address] Care Team Providers Care Roof Truss Detailer Name Role Phone Unavailable Primary Care Provider Unavailabl e Encounter Details Date Type Department Care Team (Late st Contact Info) Description 10/24/2024 Telephone [facility], A Department of [facility] [address] [place] [phone] Tequila Barry CMA Social History Tobacco Use Types Packs/Day [...] encounter Miscellaneous Notes * Telephone Encounter - Tequila Barry CMA - 10/24/2024 2:18 PM EDT Tanja called and stated that she is waking up in the middle of the night with cramping in her righthand, both leg calves, and the bottom of both feet. Tanja would like to know if there is something that she needs to take for this like a muscle relaxer or steroid? Please advise. * Telephone Encounter - Tequila Barry CMA - 10/24/2024 2:18 PM EDT Attempted to contact patient, vm box not set up * Telephone Encounter - Codie Hopkins CMA - 10/24/2024 2:18 PM EDT ..Spoke with Tanja gave message from Dr. Szymanski. Pt understood documented in this encounter Plan of Treatment Upcoming Encounters Date Type Department Care Team (Late st Contact Info) Description 01/16/2025 12:30 PM EDT Office Visit [facility], [facility] Department of [facility] [address] [phone] Cristian Szymanski MD [address] [address] documented as of this encounter Visit Diagnoses Not on filedocumented in this encounter"
--- OUTSIDE RECORDS SUMMARY | 2024-12-18 15:32 | XMS_ITS | Clinical Summary ---
Author Organization [facility] Address [address] [place] [address] Care Team Providers Care Equipment Maintenance Supervisor Name Role Phone Minda Yeboah APRN, NP Primary Care Provide r Allergies No known active allergies Medications acetaminophen (TYLENOL) 325 MG tablet Take 2 tablets by mouth every 6 hours as needed Active sertraline (ZOLOFT) 100 MG tablet Take 1 tablet by mouth daily Active cetirizine (ZYRTEC) 10 MG tablet Take 1 tablet by mouth daily Active topiramate (TOPAMAX) 25 MG tablet Take 5 tablets by mouth 2 times daily Active ibuprofen (ADVIL;MOTRIN) 800 MG tablet Take 1 tablet by mouth every 8 hours as needed for Pain Active omeprazole (PRILOSEC) 20 MG delayed release capsule Take 2 capsules by mouth daily Active levothyroxine (SYNTHROID) 25 MCG tablet Take 1 tablet by mouth Daily Active busPIRone (BUSPAR) 5 MG tablet Take 1 tablet by mouth 2 times daily Active atorvastatin (LIPITOR) 10 MG tablet Take 1 tablet by mouth daily Active fluticasone (FLONASE) 50 MCG/ACT nasal spray 1 spray by Each Nostril route daily Active umeclidinium-vi lanterol (ANORO ELLIPTA) 62.5-25 MCG/INH AEPB inhaler Inhale 1 puff into the lungs daily Active albuterol sulfate HFA (PROVENTIL;VENT ETHAN;PROAIR) 108 (90 Base) MCG/ACT inhaler Inhale 2 puffs into the lungs every 6 hours as needed for Wheezing Active zinc sulfate (ZINCATE) 220 (50 Zn) MG capsule Take 2 capsules by mouth daily 30 capsule 3 06/19/2021 Active vitamin D3 (CHOLECALCIFERO L) 25 MCG (1000 UT) TABS tablet Take 1 tablet by mouth daily 30 tablet 06/18/2021 Active pantoprazole (PROTONIX) 40 MG tablet Take 1 tablet by mouth daily Active Active Problems Problem Noted Date Diagnosed Date Seizure 05/25/2022 Multiple fractures of foot, left, closed, initia l encounter 05/24/2022 Ankle fracture, bimalleolar, closed, left, initial encounter 05/24/2022 Hypokalemia 06/16/2021 Disorientation 06/15/2021 Encephalopathy due to COVID-19 virus 06/15/2021 COVID-19 virus infection 06/14/2021 Migraine 05/01/2013 Raynaud disease 05/01/2013 Disturbance of skin sensation 09/12/2012 Tobacco abuse 09/12/2012 Resolved Problems Problem Noted Date Diagnosed Date Resolved Date Dehydration 06/15/2021 07/15/2021 Family History Medical History Relation Name Comments Heart Disease Father High Blood Pressure Father Heart Disease Maternal Grandfather Diabetes Maternal Grandmother Heart Disease Maternal Grandmother Arthritis Mother Diabetes Paternal Grandfather Heart Disease Paternal Grandfather Diabetes Paternal Grandmother Heart Disease Paternal Grandmother Relation Name Status Comments Father Alive Maternal Grandfather Maternal Grandmother Mother Alive Paternal Grandfather Paternal Grandmother Social History Tobacco Use Types Packs/Day Years Used Date Smoking Tobacco: Every Day Cigarettes 1 20 Smokeless Tobacco: Never Tobacco Cessation:Ready to Q uit: Not Asked; Counseling Given: Not Answered Alcohol Use Standard Drinks/Week Comments Yes 0 (1 standard drink = 0.6 oz pur e alcohol) occasional AUDIT-C Answer Date Recorded Q1: How often do you have a drink containing alcohol? Never 08/21/2024 Q2: How many drinks containi ng alcohol do you have on a typical day when you are drinking? Patient does not drink Q3: How often do you have si x or more drinks on one occasion? Never 08/21/2024 Comments No Sex and Gender Information Value Date Recorded Sex Assigned at Not on file Legal Sex Female 1:08 AM EST Gender Identity Not on file Sexual Orientation Not on file Last Filed Vital Signs Vital Sign Reading Time Taken Comments Blood Pressure 123/90 08/21/2024 12:23 PM EST Pulse 90 08/21/2024 12:24 PM EST Temperature 37.1 C (98.7 F) 08/21/2024 12:26 PM EST Respiratory Rate 16 08/21/2024 12:25 PM EST Oxygen Saturation 96% 08/21/2024 12:24 PM EST Inhaled Oxygen Concentration - - Weight 83.9 kg (185 lb) 08/21/2024 12:26 PM EST Height 170.2 cm (5' 7 ) 05/24/2022 11:15 AM EDT Body Mass Index 28.98 05/24/2022 11:15 AM EDT Plan of Treatment Health Maintenance Due Date Last Done Comments Lipids 11/01/1977 Depression Screen 1979 HIV screen 11/01/1982 Hepatitis C screen 11/01/1985 DTaP/Tdap/Td vaccine (1 - Tdap) 11/01/1986 Hepatitis B vaccine (1 of 3 - 19+ 3-dose series) 11/01/1986 Pneumococcal 50+ years Vaccine (1 of 2 - PCV) 11/01/1986 Pap smear 11/01/1988 Cervical cancer screen 11/01/1997 HPV (without or with Pap) 11/01/1997 Breast cancer screen 2007 Colonoscopy 11/01/2012 Colorectal Cancer Screen 11/01/2012 FIT/FOBT: Average risk 11/01/2012 Fecal-DNA (Cologuard): Average risk 11/01/2012 Sigmoidoscopy/CT colonography 11/01/2012 Lung Cancer Screening &/or Counseling 11/01/2017 Shingles vaccine (1 of 2) 11/01/2017 COVID-19 Vaccine ( - season) 2024 Flu vaccine (Season Ended) 2025 03/24/2015 GFR test (Diabetes, CKD 3-4, OR last GFR 15-59) 08/21/2025 08/21/2024, 05/26/2022, 05/24/2022, Additional history exists Hepatitis A vaccine Aged Out No longe r eligible based on patient's age to complete this topic Hib vaccine Aged Out No longer eligi ble based on patient's age to complete this topic Meningococcal (ACWY) vaccine Aged Out No longer eligible based on patient's age to complete this topic Meningococcal B vaccine Aged Out No l onger eligible based on patient's age to complete this topic Polio vaccine Aged Out No longer elig ible based on patient's age to complete this topic Procedures Procedure Name Priority Date/Time Associated Diagnosis Comments BASIC METABOLIC PANEL STAT 08/21/2024 12:23 PM EST from Last 3 Months or Most Recently Relevant to Health Maintenance Results * (ABNORMAL) Basic Metabolic Panel (08/21/2024 12:23 PM EST) Sodium 134(L) 136 - 145 mmol/L 08/21/2024 12:23 PM [facility] Potassium 4.1 3.7 - 5.3 mmol/L 08/21/2024 12:23 PM [facility] Chloride 99 98 - 107 mmol/L 08/21/2024 12:23 PM [facility] CO2 23 20 - 31 mmol/L 08/21/2024 12:23 PM [facility] Anion Gap 12 9 - 16 mmol/L 08/21/2024 12:23 PM [facility] Glucose 95 74 - 99 mg/dL 08/21/2024 12:23 PM [facility] BUN 13 6 - 20 mg/dL 08/21/2024 12:23 PM [facility] Creatinine 1.2(H) 0.50 - 0.90 mg/dL 08/21/2024 12:23 PM [facility] Est, Glom Filt Rate 54(L) >60 mL/min/1.7 3m2 08/21/2024 12:23 PM [facility] Comment: These results are not intended for use in patients <18 years of age. eGFR results are calculated without a race factor using the 2020 CKD-EPI equation. Careful clinical correlation is recommended, particularly when comparing to results calculated using previous equations. The CKD-EPI equation is less accurate in patients with extremes of muscle mass, extra-renal metabolism of creatine, excessive creatine ingestion, or following therapy that affects renal tubular secretion. BUN/Creatinine Ratio 11 9 - 20 08/21/2024 12:23 PM EST [facility] Calcium 9.9 8.6 - 10.4 mg/dL 08/21/2024 12:23 PM EST [facility] Blood BLOOD SPECIMEN / Unknown 08/21/2024 12:23 PM EST 08/21/2024 12:53 PM EST Patria Davila PA-C CHEMISTRY ORDERABLES Final Result [facility] [address] [place] [address], [facility] [phone] from Last 3 Months or Most Recently Relevant to Health Maintenance Insurance [facility] MEDICAID Advance Directives * Full Code (Latest Code Status on File) Date Activated Date Inactivated Comments 05/24/2022 12:20 PM 05/26/2022 4:23 PM * Full Code Date Activated Date Inactivated Comments 05/24/2022 12:20 PM 05/24/2022 12:20 PM * Full Code Date Activated Date Inactivated Comments 06/14/2021 9:04 PM 06/18/2021 4:14 PM Healthcare Agents on File Name Relationship Healthcare Agent [facility] Communication Juan Carrero Spouse Primary Decision Maker Care Teams Equipment Maintenance Supervisor Relationship Specialty Start Date End Date Minda Yeboah, [employer] [address] [place] [address] PCP - General Nurse Practitioner 06/18/21
--- OUTSIDE RECORDS SUMMARY | 2024-12-18 15:32 | XMS_ITS | Encounter Summary ---
Author Organization [facility] Address [address] [place] [address] Care Team Providers Care Corporate Logistics Manager Name Role Phone Minda Yeboah NP Unavailable [phone] Tony Mathur MD Primary Care Provider [phone] Minda Yeboah NP Unavailable [phone] Encounter Details Date Type Department Care Team (Late Contact Info) Description 12/17/2024 Orders Only [facility] [address] [place] [phone] Minda Yeboah NP [address] [place] [phone] Multiple thyroid nodules (CMS/HCC) (Primary Dx) Social History Tobacco Use Types [...] 01/13/2025 1:00 PM EDT Office Visit [facility] [address] [place] [address] Minda Yeboah NP [address] [place] [phone] Scheduled Orders Name Type Priority Associated Diagnoses Orde r Schedule US thyroid Imaging Routine Multiple thyroid nodules (CMS/HCC) Expected: 12/17/2024 (Approximate), Expires: 12/17/2025 documented as of this encounter Visit Diagnoses Diagnosis Multiple thyroid nodules (CMS/HCC)- Primary Nontoxic multinodular goiter documented in this encounter Care Teams Corporate Logistics Manager Relationship Specialty Start Date End Date Tony Mathur MD [address] [place] [phone] PCP - General Family Medicine 09/19/23 Minda Yeboah NP [address] [place] [phone] Referring Physician Nurse Practitioner 02/10/23 Minda Yeboah NP [address] [place] [phone] Nurse Practitioner Family Medicine 09/19/23 documented as of this encounter
--- OUTSIDE RECORDS SUMMARY | 2024-12-18 15:32 | XMS_ITS | Encounter Summary ---
[id number] [address] [place] [address] Care Team Providers Care Crematory Operator Name Role Phone Unavailable Primary Care Provider Unavailabl e Encounter Details Date Type Department Care Team (Late st Contact Info) Description 06/26/2024 Telephone [facility] [address] [phone] Tequila Barry CMA Social History Tobacco Use [...] Telephone Encounter - Tequila Barry CMA - 06/26/2024 2:00 PM EST Patient called and was upset that she missed her appointment stating that she did not get a call. Patient rescheduled for 07/08/2024 at 2:30 pm. Patient stated that she is completely out of Flexeril 5 mg and needs a refill. Please advise documented in this encounter Plan of Treatment Upcoming Encounters Date Type Department Care Team (Late Contact Info) Description 01/16/2025 12:30 PM EDT Office Visit [facility], [facility] Department of [facility] [address] [phone] Cristian Szymanski MD [address] [address] documented as of this encounter Visit Diagnoses Diagnosis DDD (degenerative disc disease), cervical Degeneration of cervical intervertebral disc documented in this encounter
--- OUTSIDE RECORDS SUMMARY | 2024-12-18 15:32 | XMS_ITS | Encounter Summary ---
Author Organization [facility] tem Address [facility] [id number] [address] [place] [address] Care Team Providers Care Balance Engineer Name Role Phone Unavailable Primary Care Provider Unavailabl e Encounter Details Date Type Department Care Team (Late st Contact Info) Description 10/21/2024 Telephone [facility], A Department of [facility] [address] [place] [phone] Codie Hopkins CMA Social History Tobacco Use [...] Telephone Encounter - Codie Hopkins CMA - 10/21/2024 3:37 PM EDT Tanja called asking if you wanted her to stop the MTX because she was gaining so much weight. She couldn't remember your instructions on this med at the last office visit. Please advise. Thanks * Telephone Encounter - Codie Hopkins CMA - 10/21/2024 3:37 PM EDT ..Spoke with Sydney gave message from Dr. Szymanski . Pt understood documented in this encounter Plan of Treatment Upcoming Encounters Date Type Department Care Team (Late st Contact Info) Description 01/16/2025 12:30 PM EDT Office Visit [facility], [facility] Department of [facility] [address] [phone] Cristian Szymanski MD [address] [address] documented as of this encounter Visit Diagnoses Not on filedocumented in this encounter
[2024-12-18 15:46] LABS: Hematocrit 36.7 % (36.0-48.0); Hemoglobin 12.2 g/dL (12.0-16.0); Mean Corpuscular HGB Conc 33.2 g/dL (29.9-35.2); Mean Corpuscular Hemoglobin 30.1 pg (26.7-34.0); Mean Corpuscular Volume 90.6 fL (81.0-99.0); Mean Platelet Volume 9.2 fL (9.5-13.5); Platelet Count 351 10^3/uL (150-450); Red Blood Count 4.05 10^6/uL (4.20-5.40); Red Cell Distribution Width 15.3 % (11.0-15.0); White Blood Count 6.8 10^3/uL (4.0-11.0)
--- OUTSIDE RECORDS SUMMARY | 2024-12-18 15:47 | XMS_ITS | CCD ---
Author Organization [facility] Care Team Providers Care Skill Training Program Coordinator Name Role Phone Minda Yeboah Primary Care Provider [phone] MINDA YEBOAH Primary Care Unavailable JUANA PENA Consulting Unavail able ANGIE VALLES Referring Unavailable DHRUV CARRILLO Admitting Unavailable DHRUV CARRILLO Attending Unavailable Unavailable Primary Care Provider UnavailKRYSTIAN Patel Referring Unavailable PROVIDER, UNKNOWN Attending Unavailable PROVIDER, UNKNOWN Admitting Unavailable PROVIDER, UNKNOWN Attending Unavailable PROVIDER, UNKNOWN Admitting Unavailable FLORENTINO CLOUD Referring Unavailable AICHHOLZ, PLASTIC SEWER MINDA Consulting Unavailable AICHHOLZ, PLASTIC SEWER MINDA Attending Unavailable AICHHOLZ, PLASTIC SEWER MINDA Admitting Unavailable AICHHOLZ, PLASTIC SEWER MINDA Primary Care Unavailable AICHHOLZ, PLASTIC SEWER MINDA Primary Care Unavailable LANE WE[place] Attending Unavailable DR NATACHA NOVAK V Consulting Unavailable LANE WE[place] Admitting Unavailable L[address] WE[place] Consulting Unavailable AICHHOLZ, PLASTIC SEWER MINDA Consulting Unavailable AICHHOLZ, PLASTIC SEWER MINDA Attending Unavailable AICHHOLZ, PLASTIC SEWER MINDA Admitting Unavailable AICHHOLZ, PLASTIC SEWER MINDA Primary Care Unavailable DR CHARLES URRUTIA Consulting Unavailable LANE [place] Consulting Unavailable TABBY AGUILERA Consulting Unavailable AICHHOLZ, PLASTIC SEWER MINDA Attending Unavailable AICHHOLZ, PLASTIC SEWER MINDA Admitting Unavailable AICHHOLZ, PLASTIC SEWER MINDA Primary Care Unavailable LANE WE[place] Admitting Unavailable L[address] WE[place] Attending Unavailable AICHHOLZ, PLASTIC SEWER MINDA Primary Care Unavailable LANE WE[place] Admitting Unavailable L[address] WE[place] Attending Unavailable DR CHARLES URRUTIA Consulting Unavailable AICHHOLZ, PLASTIC SEWER MINDA Primary Care Unavailable L[address] [place] Consulting Unavailable JEVON DUARTE Admitting Unavailable DR CHARLES URRUTIA Consulting Unavailable JEVON DUARTE Attending Unavailable AICHHOLZ, PLASTIC SEWER MINDA Primary Care Unavailable GERALD, JEVON Consulting Unavailable GERALD, JEVON Attending Unavailable JEVON DUARTE Admitting Unavailable DR CHARLES URRUTIA Consulting Unavailable AICHHOLZ, PLASTIC SEWER MINDA Primary Care Unavailable GERALD, JEVON Consulting Unavailable AICHHOLZ, PLASTIC SEWER MINDA Primary Care Unavailable JEVON DUARTE Attending Unavailable GERALD, JEVON Admitting Unavailable WEST, DR NATACHA Cho Consulting Unavailable GERALDJEVON Consulting Unavailable AICHHOLZ, CHERYL MINDA Consulting Unavailable AICHHOLZ, PLASTIC SEWER MINDA Attending Unavailable AICHHOLZ, PLASTIC SEWER MINDA Admitting Unavailable AICHHOLZ, PLASTIC SEWER MINDA Primary Care Unavailable AICHHOLZ, PLASTIC SEWER MINDA Primary Care Unavailable AMSIH, LANE Dixon Attending Unavailable AMISH, LANE Dixon Admitting Unavailable AICHHOLZ, PLASTIC SEWER MINDA Primary Care Unavailable AMISH, LANE Dixon Attending Unavailable KISHORE, DR NATACHA Cho Consulting Unavailable AMISH, LANE Dixon Admitting Unavailable L[address] [place] Consulting Unavailable Aichholz HEDIS COORDINATOR, Minda Unavailable Tony Mathur MD Primary Care Provider Aicholdanielle HEDIS COORDINATOR, Minda Unavailable Unavailable Primary Care Provider UnavailMINDA Bergeron Primary Care Unavailable NORM LEONARD Attending Unavailable AICHHOLZ, MINDA Attending Unavailable AICHHOLZ, MINDA Attending Unavailable AICHHOLZ, MINDA Attending Unavailable AICHHOLZ, MINDA Attending Unavailable AICHHOLZ, MINDA Attending Unavailable AICHHOLZ, MINDA Attending Unavailable AICHHOLZ, MINDA Attending Unavailable CRISTIAN SZYMANSKI Attending Unavailable MOISES, CRISTIAN Attending Unavailable MOISES ALI Referring Unavailable SZYMANSKICRISTIAN Attending Unavailable CRISTIAN SZYMANSKI Referring Unavailable Medications Current Medications Medication Drug Class(es) Dates Sig (Normalized) Sig (Original) Acetaminophen (12 sources) Start: 05-24-2022 acetaminophen (TYLENOL) tablet 650 mg Start: 06-14-2021 acetaminophen (TYLENOL) tablet 650 mg Start: 06-14-2021 take 650 mg by mouth every six hours as needed for pain, then take 4000 mg by mouth every twenty-four hours as needed for pain 650 mg, Oral, EVERY 6 HOURS PRN, Pain Mild (1-3), Pain Moderate (4-6), Fever, Starting on 06/14/21 at 2104 Maximum dose of acetaminophen is 4000 mg from all sources in 24 hours. acetaminophen (T YLENOL) 325 mg tablet Take 2 tablets (650 mg total) by mouth. Active acetaminophen 325 mg / HYDROcodone bitartrate 5 mg oral tablet (3 sources) Opioid Agonist Start: 05-26-2022 End: 06-02-2022 HYDROcodone-acetaminophen (NORCO) 5-325 MG per tablet Indications: Multiple fractures of foot, left, closed, initial encounter Take 1 tablet by mouth every 8 hours as needed for Pain for up to 7 days. Intended supply: 7 days. Take lowest dose possible to manage pain 21 tablet 0 05/26/2022 06/02/2022 Active Start: 05-24-2022 HYDROcodone-ac etaminophen (NORCO) 5-325 MG per tablet 1 tablet Start: 05-23-2022 End: 05-23-2022 HYDROcodone-acetaminophen (N ORCO) 5-325 MG per tablet 1 tablet acyclovir 800 mg oral tablet (2 sources) Herpesvirus Nucleoside Analog DNA Polymerase Inhibitor, Herpes Simplex Virus Nucleoside Analog DNA Polymerase Inhibitor, Herpes Zoster Virus Nucleoside Analog DNA Polymerase Inhibitor Start: 05-25-2022 End: 06-05-2022 take 1 tablet by mouth five times daily acyclovir (ZOVIRAX) 800 MG tablet Take 1 tablet by mouth 5 times daily for 10 days 50 tablet 0 05/26/2022 06/05/2022 Active [id number] 200 actuat albuterol 0.09 mg/actuat metered dose inhaler (20 sources) beta2-Adrenergic Agonist Start: 12-18-2023 End: 10-16-2024 take 2 puff(s) by inhalation every six hours for wheezing albuterol HFA 90 mcg/act inhaler Indications: Simple chronic bronchitis (CMS/HCC) Inhale 2 puffs every 6 (six) hours if needed for wheezing 18 g 09/16/2024 Active Start: 06-14-2021 take 2 puff(s) by in halation every six hours as needed 2 puff, Inhalation, EVERY 6 HOURS PRN, Starting on Mon05/24/22 at 1205, Until Discontinued, Wheezing Initiate RT Bronchodilator Protocol: Yes - Inpatient Protocol take 2 puff(s) by mo [facility] every six hours albuterol (PROVENTIL HFA;VENTOLIN HFA) 90 mcg/actuation inhaler inhale 2 puffs by mouth and INTO THE LUNGS every 6 hours if needed for SHORTNESS OF BREATH Active alendronic acid 70 mg oral tablet (17 sources) Bisphosphonate Start: 05-29-2024 End: 01-06-2025 take 1 tablet by mouth in the morning alendronate (Fosamax) 70 MG tablet Indications: Osteoporosis, unspecified osteoporosis type, unspecified pathological fracture [...] to your thyroid medicati 12 tablet 1 10/14/2024 01/06/2025 Active Start: 04-25-2024 End: 05-23-2024 alendronate (Fosamax) 70 MG tablet Indications: Osteoporosis, unspecified osteoporosis type, unspecified pathological fracture presence (CMS/HCC) Take 1 tablet (70 mg) by mouth every 7 (seven) days for 28 days Take in the morning with a full glass of water, on an empty stomach, and do not take anything else by mouth or lie down for the next 30 min. Ask pharmacist how to take this in relation to your thyroid medicati 4 tablet 3 04/25/2024 Active amoxicillin 875 mg / clavulanate 125 mg oral tablet (13 sources) Penicillin-class Antibacterial Start: 03-20-2023 take 1 tablet by mouth twice daily at mealtime amoxicillin-pot clavulanate (AUGMENTIN) 875-125 mg per tablet take 1 tablet by mouth twice a day with food 03/20/2023 Active amoxicillin-pot clavulanate (AUGMENTIN) 500-125 mg per tablet Active End: 06-18-2021 take 1 tablet by mouth twice daily amoxicillin-clavulanate (AUGMENTIN) 875-125 MG per tablet Take 1 tablet by mouth 2 times daily 0 06/18/2021 Discontinued (Stop Taking at Discharge) ARIPiprazole 5 mg oral tablet (20 sources) Atypical Antipsychotic Start: 04-12-2023 End: 01-12-2025 take 1 tablet by mouth once daily ARIPiprazole (Abilify) 5 MG tablet Indications: Major depressive disorder with single episode, in remission (HCC) (CMS/HCC) Take 1 tablet (5 mg) by mouth Daily 90 tablet 10/14/2024 01/12/2025 Active ascorbic acid 500 mg oral tablet (1 source) Vitamin C Start: 06-14-2021 take 2000 mg by mouth twice daily 2,000 mg, Oral, 2 TIMES DAILY, First dose on Mon06/14/21 at 2130 atorvastatin 40 mg oral tablet (20 sources) HMG-CoA Reductase Inhibitor Start: 12-20-2023 End: 01-12-2025 take 1 tablet by mouth at bedtime atorvastatin (Lipitor) 40 MG tablet Indications: Mixed hyperlipidemia (CMS/HCC) Take 1 tablet (40 mg) by mouth at bedtime 90 tablet 1 10/14/2024 01/12/2025 Active Start: 07-15-2022 atorvastatin ( LIPITOR) 10 mg tablet 07/15/2022 Active Start: 06-15-2021 take 10 mg by mouth once daily 10 mg, Oral, Nightly, First dose on Mon05/24/22 at 2100, Until Discontinued benzonatate 200 mg oral capsule (6 sources) Non-narcotic Antitussive End: 10-17-2024 benzonatate (TESSALON PERLES) 200 mg capsule 10/17/2024 Discontinued busPIRone hydrochloride 10 mg oral tablet (15 sources) Start: 12-18-2023 End: 04-21-2024 take 1 tablet by mouth in the morning, then take 1 tablet by mouth in the evening, then take 1 tablet by mouth at bedtime busPIRone (Buspar) 10 MG tablet Indications: Anxiety Take 1 tablet (10 mg) by mouth in the morning and 1 tablet (10 mg) in the evening and 1 tablet (10 mg) before bedtime. 90 tablet 3 03/22/2024 04/02/2024 Discontinued (Therapy completed) Start: 06-26-2022 take 1 tablet by donald three times daily for anxiety busPIRone (BUSPAR) 10 MG tablet take 1 tablet by mouth three times a day for anxiety 0 06/26/2022 Active Start: 05-24-2022 take 5 mg by mouth twice daily 5 mg, Oral, 2 TIMES DAILY, First dose on Mon05/24/22 at 1245, Until Discontinued Start: 06-14-2021 take 5 mg by mouth twice daily 5 mg, Oral, 2 TIMES DAILY, First dose on Mon06/14/21 at 2130 cetirizine hydrochloride 10 mg oral tablet (20 sources) Histamine-1 Receptor Antagonist Start: 12-18-2023 End: 01-12-2025 take 1 tablet by mouth once daily cetirizine (ZyrTEC) 10 MG tablet Indications: Vitamin D deficiency , Environmental and seasonal allergies Take 1 tablet (10 mg) by mouth Daily 90 tablet 1 10/14/2024 01/12/2025 Active Start: 07-15-2022 cetirizine (Zy rTEC) 10 MG tablet Start: 06-15-2021 take 10 mg by mouth once daily 10 mg, Oral, DAILY, First dose on Mon05/24/22 at 1245, Until Discontinued cholecalciferol 0.05 mg oral capsule (20 sources) Vitamin D Start: 04-02-2024 End: 01-12-2025 take 1 capsule by mouth once daily cholecalciferol (Vitamin D-3) 50 MCG (2000 UT) capsule Indications: Vitamin D deficiency Take 1 capsule (50 mcg) by mouth Daily 90 capsule 1 10/14/2024 01/12/2025 Active Start: 03-16-2024 End: 04-02-2024 take 1 capsule by mouth once daily cholecalciferol (Vitamin D-3) 50 MCG (2000 UT) capsule Take 2,000 Units by mouth Daily 03/16/2024 04/02/2024 Discontinued (Reorder) Start: 06-18-2021 take 1 tablet by [facility] once daily vitamin D3 (CHOLECALCIFEROL) 25 MCG (1000 UT) TABS tablet Take 1 tablet by mouth daily 30 tablet 0 06/18/2021 Active cyclobenzaprine hydrochloride 5 mg oral tablet (20 sources) Muscle Relaxant Start: 10-17-2024 take 1 tablet by mouth once daily as needed for muscle spasms cyclobenzaprine (FLEXERIL) 5 mg tablet Indications: DDD (degenerative disc disease), cervical Take 1 tablet (5 mg total) by mouth nightly as needed for muscle spasms. 90 tablet 1 10/17/2024 Active Start: 05-16-2024 End: 10-17-2024 take 1 tablet by mouth every twenty-four hours as needed cyclobenzaprine (Flexeril) 5 MG tablet Take 5 mg by mouth Daily as needed for muscle spasms 05/16/2024 Active Start: 12-27-2023 End: 05-02-2024 take 1 tablet by mouth once daily as needed for muscle spasms cyclobenzaprine (FLEXERIL) 5 mg tablet Indications: DDD (degenerative disc disease), cervical Take 1 tablet (5 mg total) by mouth nightly as needed for muscle spasms. 30 tablet 2 02/13/2024 03/20/2024 Discontinued (Reorder) 1 ml denosumab 60 mg/ml prefilled syringe (10 sources) RANK Ligand Inhibitor End: 04-25-2024 denosumab (Prolia) 60 MG/ML solution prefilled syringe Indications: Decreased Bone Mineral Density , Osteoporosis Inject 60 mg under the skin 1 (one) time Every 6 months 04/25/2024 Discontinued (Cost of medication) 0.4 ml enoxaparin sodium 100 mg/ml prefilled syringe (3 sources) Low Molecular Weight Heparin Start: 05-24-2022 End: 05-25-2022 enoxaparin (LOVENOX) injection 40 mg Start: 06-15-2021 enoxaparin (LO VENOX) injection 30 mg ergocalciferol 1.25 mg oral capsule (1 source) Provitamin D2 Compound Start: 06-15-2021 take 57668 [IU] by mouth once daily 50,000 Units, Oral, DAILY, First dose on Mon06/15/21 at 0900 etodolac 400 mg oral tablet (7 sources) Nonsteroidal Anti-inflammatory Drug Start: 01-02-2024 End: 04-02-2024 take 1 tablet by mouth in the morning etodolac (Lodine) 400 MG tablet Take 400 mg by mouth in the morning and 400 mg before bedtime. 01/02/2024 04/02/2024 Discontinued (Therapy completed) 2 ml fentaNYL 0.05 mg/ml injection (1 source) Opioid Agonist Start: 05-24-2022 fentaNYL (SUBLIMAZE) injection 25 mcg fluticasone propionate 0.05 mg/actuat metered dose nasal spray (20 sources) Corticosteroid Start: 04-02-2024 End: 01-12-2025 take 2 spray(s) nasal route once daily fluticasone (Flonase) 50 MCG/ACT nasal spray Indications: Environmental and seasonal allergies Administer 2 sprays into each nostril Daily 48 g 1 10/14/2024 01/12/2025 Active Start: 09-19-2023 End: 04-02-2024 take 2 spray(s) nasal route in the morning fluticasone (Flonase) 50 MCG/ACT nasal spray Indications: Environmental and seasonal allergies Administer 2 sprays into each nostril in the morning. 16 g 3 09/19/2023 04/02/2024 Discontinued (Reorder) Start: 07-17-2022 fluticasone (F LONASE) 50 mcg/act nasal inhaler Start: 05-24-2022 take 1 spray(s) nasa l route once daily 1 spray, Each Nostril, DAILY, First dose on Mon05/24/22 at 1245, Until Discontinued Start: 06-15-2021 take 1 spray(s) nasa l route once daily 1 spray, Each Nostril, DAILY, First dose on Mon06/15/21 at 0900 take 2 spray(s) nasa l route once daily fluticasone propionate (FLONASE) 50 mcg/actuation nasal spray instill 2 sprays into each nostril once daily Active take 1 spray(s) nasa l route once daily fluticasone (FLONASE) 50 MCG/ACT nasal spray 1 spray by Each Nostril route daily 0 Active folic acid 1 mg oral tablet (5 sources) Start: 10-17-2024 take 1 tablet by mouth once daily in the morning folic acid (FOLVITE) 1 mg tablet Take 1 tablet (1 mg total) by mouth in the morning. Except days of taking methotrexate.. 90 tablet 1 10/17/2024 Active Start: 08-19-2024 End: 10-17-2024 take 1 tablet by mouth once daily in the morning folic acid (FOLVITE) 1 mg tablet Take 1 tablet (1 mg total) by mouth in the morning. Except days of taking methotrexate.. 90 tablet 1 08/19/2024 10/17/2024 Discontinued (Reorder) gabapentin 300 mg oral capsule (2 sources) Anti-epileptic Agent Start: 06-30-2022 gabapentin (NEURONTIN) 300 MG capsule 1 (one) capsule by mouth as directed, start with 1 at bedtime for... (REFER TO PRESCRIPTION NOTES). 0 06/30/2022 Active hydroxychloroquine sulfate 200 mg oral tablet (17 sources) Antimalarial, Antirheumatic Agent Start: 07-01-2023 End: 08-19-2024 take 1 tablet by mouth in the morning hydroxychloroquine (PLAQUENIL) 200 mg tablet Take 1 tablet (200 mg total) by mouth in the morning. 90 tablet 1 02/13/2024 Active ibuprofen 800 mg oral tablet (17 sources) Nonsteroidal Anti-inflammatory Drug Start: 04-05-2024 take 1 tablet by mouth every eight hours as needed ibuprofen 800 MG tablet Take 800 mg by mouth every 8 (eight) hours if needed 04/05/2024 Active take 1 tablet by donald th every eight hours as needed for pain ibuprofen (ADVIL;MOTRIN) 800 MG tablet T paul 800 mg by mouth every 8 hours as needed for Pain 0 Active levothyroxine sodium 0.05 mg oral tablet (20 sources) l-Thyroxine Start: 12-20-2023 End: 01-12-2025 take 1 tablet by mouth before mealtime levothyroxine (Synthroid) 50 MCG tablet Indications: Hypothyroidism (acquired) (CMS/HCC) Take 1 tablet (50 mcg) by mouth in the morning. Take before meals. 90 tablet 1 10/14/2024 01/12/2025 Active Start: 04-12-2023 levothyroxine (SYNTHROID, LEVOTHROID) 75 MCG tablet 04/12/2023 Active Start: 07-15-2022 levothyroxine (SYNTHROID) 25 MCG tablet Start: 06-15-2021 take 25 ug by mouth once daily 25 mcg, Oral, DAILY, First dose on Mon05/24/22 at 1245, Until Discontinued Tube feeding (TF) interaction, obtain physician order to manage, recommend holding TF for 30 minutes before and after dose. magnesium oxide 400 mg oral tablet (20 sources) Start: 04-12-2023 End: 01-12-2025 take 1 tablet by mouth once daily magnesium oxide (Mag-Ox) 400 (240 Mg) MG tablet Indications: Hypomagnesemia Take 1 tablet (400 mg) by mouth Daily 90 tablet 1 10/14/2024 01/12/2025 Active 50 ml magnesium sulfate 40 mg/ml injection (1 source) Start: 05-24-2022 take 2000 mg intravenously every hour as needed 2,000 mg, IntraVENous, at 25 mL/hr, Administer over 2 Hours, PRN, Other, Magnesium Replacement, Starting on Mon05/24/22 at 1217 Mg Lab Replacement Action 1.4-1. 6 2 gram IVPB x 1 doses (2 grams total) 1.0-1. 3 2 gram IVPB x 2 doses (4 grams total) Less than 1.0 CALL PHYSICIAN and 2 gram IVPB x 2 doses (4 grams total) Infuse at 1 gram/hr. Repe at Mag level next AM. Not for use in Patients with CrCl less than 30 mL/min. meloxicam 15 mg oral tablet (12 sources) Nonsteroidal Anti-inflammatory Drug Start: 07-13-2023 End: 08-19-2024 take 1 tablet by mouth in the morning meloxicam (Mobic) 15 MG tablet Take 1 tablet by mouth in the morning. 07/13/2023 04/02/2024 Discontinued (Therapy completed) methotrexate 2.5 mg oral tablet (5 sources) Folate Analog Metabolic Inhibitor Start: 10-17-2024 methotrexate 2.5 mg chemo tablet 5 tablets once a week. Dispense 2.5 mg tablets. 60 tablet 1 10/17/2024 Active Start: 08-19-2024 End: 10-17-2024 methotrexate 2.5 mg chemo ta blet 5 tablets once a week. Dispense 2.5 mg tablets. 20 tablet 2 08/19/2024 10/17/2024 Discontinued (Reorder) take 5 tablets by [facility] every week methotrexate 2.5 MG tablet Take 12.5 mg by mouth 1 (one) time per week. Active morphine (PF) injection 2 mg (1 source) Start: 05-24-2022 morphine (PF) injection 2 mg ondansetron (ZOFRAN-ODT) disintegrating tablet 4 mg (2 sources) Start: 05-24-2022 ondansetron (Z OFRAN-ODT) disintegrating tablet 4 mg Start: 06-14-2021 ondansetron (Z OFRAN-ODT) disintegrating tablet 4 mg pantoprazole 40 mg delayed release oral tablet (5 sources) Proton Pump Inhibitor Start: 12-17-2024 End: 01-16-2025 take 1 tablet by mouth before mealtime pantoprazole (ProtoNix) 40 MG EC tablet Indications: Gastroesophageal reflux disease, unspecified whether esophagitis present Take 1 tablet (40 mg) by mouth in the morning. Take before meals. Do not crush, chew, or split. 30 tablet 1 12/17/2024 01/16/2025 Active Start: 06-15-2021 take 40 mg by mouth once daily 40 mg, Oral, DAILY, First dose on Mon05/24/22 at 1245, Until Discontinued Do not crush or break. polyethylene glycol [id number] [id number] mg powder for oral solution (2 sources) Osmotic Laxative Start: 05-25-2022 polyethylene glycol (GLYCOLAX) packet 17 g Start: 06-14-2021 17 g, Oral, DA KESHA PRN, Constipation, Starting on Mon06/14/21 at 2104 First line therapy for constipation Potassium Chloride (2 sources) Start: 05-24-2022 potassium chlo ride (KLOR-CON M) extended release tablet 40 mEq Start: 06-16-2021 potassium chlo ride (KLOR-CON M) extended release tablet 40 mEq potassium chloride 40 mEq in lactated ringers 1,000 mL infusion (1 source) Start: 06-16-2021 potassium chlo ride 40 mEq in lactated ringers 1,000 mL infusion predniSONE 5 mg oral tablet (3 sources) Start: 10-17-2024 predniSONE (DE LTASONE) 5 mg tablet 7.5 mg daily for one week then 5 mg daily for one week then 2.5 mg daily for one week 21 tablet 10/17/2024 Active Start: 08-19-2024 End: 10-17-2024 take 1 tablet by mouth in the morning predniSONE (DELTASONE) 10 mg tablet Take 1 tablet (10 mg total) by mouth in the morning. 30 tablet 1 08/19/2024 10/17/2024 Discontinued (Reorder) propranolol hydrochloride 10 mg oral tablet (4 sources) beta-Adrenergic Heath Start: 06-14-2021 take 40 mg by mouth twice daily 40 mg, Oral, 2 TIMES DAILY, First dose on Mon06/14/21 at 2130 Start: 04-10-2013 propranolol (I NDERAL) 40 MG tablet 2 times daily. 0 04/10/2013 Active QUEtiapine 50 mg oral tablet (20 sources) Atypical Antipsychotic Start: 12-18-2023 End: 01-12-2025 take 3 tablets by mouth at bedtime QUEtiapine (SEROquel) 50 MG tablet Indications: Anxiety and depression (CMS/HCC) Take 3 tablets (150 mg) by mouth at bedtime 270 tablet 1 10/14/2024 01/12/2025 Active Start: 07-16-2022 QUEtiapine (SE ROQUEL) 100 MG tablet sertraline 100 mg oral tablet (20 sources) Serotonin Reuptake Inhibitor Start: 12-18-2023 End: 01-12-2025 take 1 tablet by mouth in the morning sertraline (Zoloft) 100 MG tablet Indications: MARY (generalized anxiety disorder) (CMS/HCC) , Major depressive disorder with single episode, in remission (HCC) (CMS/HCC) Take 1 tablet (100 mg) by mouth in the morning and 1 tablet (100 mg) before bedtime. 180 tablet 1 10/14/2024 01/12/2025 Active Start: 06-15-2021 take 1 tablet by donald th once daily sertraline (ZOLOFT) 100 MG tablet Take 100 mg by mouth daily. 0 05/12/2022 Active topiramate 25 mg oral tablet (20 sources) Start: 07-15-2022 End: 01-12-2025 take 1 tablet by mouth in the morning topiramate (Topamax) 100 MG tablet Indications: Seizures (CMS/HCC) Take 1 tablet (100 mg) by mouth in the morning and 1 tablet (100 mg) before bedtime. Total daily dose is 125 mg. 180 tablet 1 10/14/2024 01/12/2025 Active Start: 05-24-2022 take 1 tablet by donald th twice daily 125 mg, Oral, 2 TIMES DAILY, First dose on Mon05/24/22 at 1245, Until Discontinued It is not recommended to crush, break, or chew immediate release tablets due to bitter taste. Start: 06-14-2021 End: 01-12-2025 take 1 tablet by mouth in the morning topiramate (Topamax) 25 MG tablet Indications: Seizures (CMS/HCC) Take 1 tablet (25 mg) by mouth in the morning and 1 tablet (25 mg) before bedtime. Total daily dose is 125 mg. 180 tablet 1 10/14/2024 01/12/2025 Active take 5 tablets by [facility] twice daily topiramate (TOPAMAX) 25 MG tablet Take 125 mg by mouth 2 times daily 0 Active 30 actuat umeclidinium 0.0625 mg/actuat / vilanterol 0.025 mg/actuat dry powder inhaler (20 sources) Anticholinergic, beta2-Adrenergic Agonist Start: 12-18-2023 End: 01-12-2025 take 1 puff(s) by inhalation once daily Umeclidinium-Vilanterol (Anoro Ellipta) 62.5-25 MCG/ACT aerosol powder Indications: Simple chronic bronchitis (CMS/HCC) Inhale 1 puff Daily 3 each 1 10/14/2024 01/12/2025 Active Start: 06-17-2022 take 1 puff(s) by mouth once d aily Anoro Ellipta 62.5-25 MCG/ACT AEPB inhalation powder inhale 1 puff by mouth and INTO THE LUNGS once daily 0 06/17/2022 Active Start: 06-15-2021 take 1 puff(s) by in halation once daily 1 puff, Inhalation, DAILY, First dose on Mon06/15/21 at 0800 zinc sulfate 220 mg oral capsule (4 sources) Start: 06-15-2021 take 2 capsules by mouth once daily zinc sulfate (ZINCATE) 220 (50 Zn) MG capsule Take 2 capsules by mouth daily 30 capsule 3 06/19/2021 Active Completed/Discontinued Medications Medication Drug Class(es) Dates Sig (Normalized) Sig (Original) casirivimab-imdevim ab 1,200 mg in sodium chloride 0.9 % 110 mL IVPB (1 source) Start: 06-15-2021 End: 06-15-2021 casirivimab-imdevi mab 1,200 mg in sodium chloride 0.9 % 110 mL IVPB dexamethasone phosphate 10 mg/ml injectable solution (1 source) Corticosteroid Start: 06-14-2021 End: 06-14-2021 dexamethasone (DECADRON) injection 10 mg gadoteridol (PROHANCE) injection 13 mL (1 source) Start: 06-16-2021 End: 06-16-2021 gadoteridol (PROHANCE) injection 13 mL iopamidol (ISOVUE-370) 76 % injection 75 mL (1 source) Start: 06-14-2021 End: 06-14-2021 iopamidol (ISOVUE-370) 76 % injection 75 mL 1 ml LORazepam 2 mg/ml injection (1 source) Benzodiazepine Start: 05-24-2022 2 mg, IntraVENous, EVERY 6 HOURS PRN, Starting on Mon05/24/22 at 1220, Until Discontinued, Seizures 1 ml morphine sulfate 2 mg/ml cartridge (1 source) Opioid Agonist Start: 05-24-2022 End: 05-24-2022 morphine (PF) injection 2 mg 24 hr nicotine 0.875 mg/hr transdermal system (9 sources) Cholinergic Nicotinic Agonist Start: 04-02-2024 End: 05-02-2024 nicotine (Nicoderm, Step 1) 21 MG/24HR patch Indications: Tobacco user Place 1 patch over 24 hours on the skin 1 (one) time each day at the same time 30 patch 1 04/02/2024 04/29/2024 Discontinued (Therapy completed) Start: 05-24-2022 apply 1 dose transde rmal route once daily 1 patch, TransDERmal, Administer over 24 Hours, DAILY, First dose on Mon05/24/22 at 1245 Apply new patch to nonhairy, clean, dry skin on the upper body or upper outer arm. Rotate patch sites. Notify pharmacy if patient or provider prefers patch to be removed at bedtime and replaced in the morning. Hazardous Medication -- Refer to facility policy for handling and disposal. 10 actuat olodaterol 0.0025 mg/actuat / tiotropium 0.0025 mg/actuat inhalation spray (1 source) Anticholinergic, beta2-Adrenergic Agonist Start: 05-24-2022 take 2 puff(s) by inhalation once daily 2 puff, Inhalation, DAILY, First dose on Mon05/24/22 at 1245, Until Discontinued Substituted for Umeclidinium-Vilanterol (ANORO ELLIPTA). omeprazole 40 mg delayed release oral capsule (20 sources) Proton Pump Inhibitor Start: 02-06-2024 End: 01-12-2025 take 1 capsule by mouth before mealtime omeprazole (PriLOSEC) [address] capsule Indications: Gastroesophageal reflux disease, unspecified whether esophagitis present Take 1 capsule (40 mg) by mouth in the morning. Take before meals. 90 capsule 1 10/14/2024 12/17/2024 Discontinued (Ineffective) take 2 capsules by mouth once da kesha omeprazole (PRILOSEC) 20 MG delayed release capsule Take 40 mg by mouth daily 0 Active 2 ml ondansetron 2 mg/ml injection (2 sources) Serotonin-3 Receptor Antagonist Start: 05-24-2022 End: 05-24-2022 ondansetron (ZOFRAN) injection 4 mg Start: 06-14-2021 End: 06-14-2021 ondansetron (ZOFRAN) injecti on 4 mg phentermine hydrochloride 37.5 mg oral tablet (20 sources) Sympathomimetic Amine Anorectic Start: 01-22-2024 End: 07-05-2024 take 1 tablet by mouth before mealtime phentermine (Adipex-P) 37.5 MG tablet Indications: Obesity with body mass index (BMI) of 30.0 to 39.9 Take 1 tablet (37.5 mg) by mouth in the morning. Take before meals. 30 tablet 03/26/2024 04/29/2024 Discontinued (Reorder) potassium chloride 60 mEq in dextrose 5 % 600 mL IVPB (1 source) Start: 06-16-2021 End: 06-16-2021 potassium chloride 60 mEq in dextrose 5 % 600 mL IVPB 5 ml sodium chloride 9 mg/ml injection (9 sources) Start: 05-24-2022 take 1 dose intravenously twice daily 5-40 mL, IntraVENous, EVERY 12 HOURS SCHEDULED (2 times per day), First dose on Mon05/24/22 at 2100, Until Discontinued For Line Patency: Peripheral IV = 5 mL; Midline or Central Line = 10 mL/lumen.&nb sp; If following IV push medication, administer flush at same rate as the IV push. Flush volume is determined by type of infusion therapy being given. &nbs p;For non-viscous solutions use: Periph eral IV = 5 mL Midline or Central Line = 10 mL/lumen &n bsp;For viscous solutions (i.e. blood components, parenteral nutrition, contrast media, or after obtaining blood sample) use: Periph eral IV = 10 mL Midline or Central Line = 20 mL/lumen Start: 05-24-2022 IntraVENous, a t 5-250 mL/hr, PRN, if patient receiving piggyback infusions and maintenance fluids are not ordered OR KVO fluids to protect IV site / prevent frequent line interruptions/ long duration, Starting on Mon05/24/22 at 1212 For piggyback infusion, administer at same rate as piggyback for a total of 25 mL. Enter 25 mL into dose field and piggyback rate into rate field of order. If piggyback is infusing at a rate less than 100 mL/hr, enter 25 mL into dose field and 100 mL/hr into rate field of order. For KVO fluids, enter rate of 20 mL/hr or less into rate field of order. Start: 05-24-2022 take 5-40 mL intrave nously once as needed 5-40 mL, IntraVENous, PRN, Starting on Mon05/24/22 at 1212, Until Discontinued, Line Care, After every IV line use For Line Patency: Peripheral IV = 5 mL; Midline or Central Line = 10 mL/lumen. If following IV push medication, administer flush at same rate as the IV push. Flush volume is determined by type of infusion therapy being given. For non-viscous solutions use: Peripheral IV = 5 mL Midline or Central Line = 10 mL/lumen For viscous solutions (i.e. blood components, parenteral nutrition, contrast media, or after obtaining blood sample) use: Peripheral IV = 10 mL Midline or Central Line = 20 mL/lumen Start: 06-14-2021 take 1 dose intraven ously twice daily 5-40 mL, IntraVENous, EVERY 12 HOURS SCHEDULED (2 times per day), First dose on Mon06/14/21 at 2130 For Line Patency: Peripheral IV = 5 mL; Midline or Central Line = 10 mL/lumen. If following IV push medication, administer flush at same rate as the IV push. Flush volume is determined by type of infusion therapy being given. For non-viscous solutions use: Peripheral IV = 5 mL Midline or Central Line = 10 mL/lumen For viscous solutions (i.e. blood components, parenteral nutrition, contrast media, or after obtaining blood sample) use: Peripheral IV = 10 mL Midline or Central Line = 20 mL/lumen Start: 06-14-2021 take 10 mL intraveno usly once as needed 10 mL, IntraVENous, PRN, Line Care, After every IV line use, Starting on Mon06/14/21 at 2104 Start: 06-14-2021 End: 06-14-2021 1,000 mL, IntraVENous, at 1, 000 mL/hr, Administer over 1 Hours, ONCE, On Mon06/14/21 at 2130, For 1 dose For adult patients weighing > 55 kg (120 lbs.) and less than <50 years of age initiate 0.9NS at 500 mL/ hr. All bolus orders are to be given over 10 to 15 minutes Start: 06-14-2021 End: 06-16-2021 IntraVENous, at 150 mL/hr, CONTINUOUS, Starting on Mon06/14/21 at 2130 Start: 06-14-2021 take 25 mL intraveno usly every hour as needed 25 mL, IntraVENous, at 100 mL/hr, PRN, If patient receiving piggyback infusions without ordered maintenance IV fluids or with frequent/long duration piggyback infusions, Starting on Mon06/14/21 at 2104 Administer at the same rate as the piggyback being infused. Start: 06-14-2021 End: 06-14-2021 0.9 % sodium chloride bolus Problems Active Problems Problem Classification Problem Date Documented Da te Episodic/Chronic Anxiety disorders (20 sources) Generalized anxiety disorder; Translations: [Generalized anxiety disorder] Onset: 12-04-202 3 Resolved: 5 07-22-2023 Chronic Chronic kidney disease (2 sources) Chronic kidney disease stage 3A ; Translations: [Chronic kidney disease, stage 3a (HCC)] Onset: 5 10-01-2024 Chronic Chronic obstructive pulmonary disease and bronchiectasis (20 sources) Chronic bronchitis; Translations: [Unspecified chronic bronchitis] Onset: 4 Resolved: 4 08-20-2023 Chronic Disorders of lipid metabolism (20 sources) Hyperlipidemia, unspecified; Translations: [Mixed hyperlipidemia] Onset: 3 Resolved: 5 07-27-2023 Chronic Disorders of teeth and jaw (2 sources) Carious exposure of pulp ; Translations: [Dental caries, unspecified] Episodic Esophageal disorders (20 sources) Gastroesophageal reflux disease; Translations: [Gastro-esophageal reflux disease without esophagitis] Onset: 4 08-14-2023 Chronic Fracture of lower limb (20 sources) Closed fracture of left foot; Translations: [Unspecified fracture of left foot, initial encounter for closed fracture] Onset: 2 Episodic Gastrointestinal hemorrhage (3 sources) Hematemesis; Translations: [Hematemesis] Onset: 5 12-17-2024 Episodic Headache; including migraine (20 sources) Migraine; Translations: [Migraine, unspecified, not intractable, without status migrainosus] Onset: 3 04-30-2015 Chronic Headache; including migraine (2 sources) Headache; Translations: [Headache] Onset: 2 07-18-2022 Episodic Joint disorders and dislocations; trauma-related (5 sources) Dislocation of tarsometatarsal joint of left foot, subsequent encounter; Translations: [DISLOC TMT JOINT LT FOOT SUBSQT] Onset: 3 Episodic Mood disorders (20 sources) Major depression, single episode; Translations: [Major depressive disorder, single episode, in full remission] Onset: 3 Resolved: 4 08-10-2023 Chronic Nutritional deficiencies (20 sources) Vitamin D deficiency; Translations: [Vitamin D deficiency, unspecified] Onset: 4 05-24-2024 Chronic Osteoarthritis (3 sources) Arthritis; Translations: [Unspecified osteoarthritis, unspecified site] Onset: 5 08-19-2024 Chronic Osteoporosis (20 sources) Age-related osteoporosis without current pathological fracture; Translations: [Senile osteoporosis] Onset: 3 01-22-2024 Chronic Other aftercare (4 sources) Patient encounter status; Translations: [Encounter for therapeutic drug level monitoring] 08-19-2024 Episodic Other circulatory disease (5 sources) Raynaud's disease; Translations: [Raynaud's syndrome without gangrene] Onset: 3 05-01-2013 Chronic Other connective tissue disease (4 sources) Myalgia, unspecified site; Translations: [MYALGIA UNSPECIFIED SITE] Onset: 3 Episodic Other connective tissue disease (5 sources) Pain in left foot; Translations: [PAIN IN LEFT FOOT] Onset: 2 Episodic Other gastrointestinal disorders (3 sources) Diarrhea; Translations: [Diarrhea, unspecified] Onset: 5 12-17-2024 Episodic Other nervous system disorders (20 sources) Chronic pain; Translations: [Other chronic pain] Onset: 4 09-11-2023 Chronic Other non-traumatic joint disorders (5 sources) Pain in left ankle and joints of left foot; Translations: [PAIN IN LEFT ANKLE] Onset: 3 Episodic Other non-traumatic joint disorders (2 sources) Multiple joint pain; Translations: [Pain in unspecified joint] 08-19-2024 Episodic Other non-traumatic joint disorders (1 source) Pain in unspecified joint; Translations: [Pain in unspecified joint] Onset: 5 Episodic Other nutritional; endocrine; and metabolic disorders (20 sources) Hypomagnesemia; Translations: [Hypomagnesemia] Onset: 4 08-14-2023 Chronic Other nutritional; endocrine; and metabolic disorders (20 sources) Body mass index 30+ - obesity; Translations: [Obesity, unspecified] Onset: 4 09-11-2023 Chronic Other screening for suspected conditions (not mental disorders or infectious disease) (20 sources) Serum creatinine raised; Translations: [Other specified abnormal findings of blood chemistry] Onset: 3 07-27-2023 Episodic Other upper respiratory disease (20 sources) Allergic disposition; Translations: [Other allergic rhinitis] Onset: 4 05-24-2024 Chronic Pneumonia (except that caused by tuberculosis or sexually transmitted disease) (1 source) Infective pneumonia; Translations: [Pneumonia, unspecified organism] Episodic Residual codes; unclassified (20 sources) Obstructive sleep apnea syndrome; Translations: [Obstructive sleep apnea (adult) (pediatric)] Onset: 4 08-14-2023 Chronic Residual codes; unclassified (4 sources) Asymptomatic menopausal state; Translations: [ASYMPTOMATIC MENOPAUSAL STATE] Onset: 3 Episodic Residual codes; unclassified (1 source) Pain, unspecified; Translations: [Pain, unspecified] Onset: 4 Episodic Rheumatoid arthritis and related disease (20 sources) Rheumatoid arthritis; Translations: [Rheumatoid arthritis, unspecified] Onset: 4 08-14-2023 Chronic Spondylosis; intervertebral disc disorders; other back problems (20 sources) Lumbosacral spondylosis; Translations: [Spondylosis without myelopathy or radiculopathy, lumbosacral region] Onset: 4 08-14-2023 Chronic Substance-related disorders (3 sources) Tobacco dependence caused by cigarettes; Translations: [Nicotine dependence, cigarettes, uncomplicated] Onset: 5 10-01-2024 Chronic Systemic lupus erythematosus and connective tissue disorders (5 sources) Undifferentiated connective tissue disease; Translations: [Systemic involvement of connective tissue, unspecified] Onset: 4 08-19-2024 Chronic Thyroid disorders (20 sources) Hypothyroidism; Translations: [Hypothyroidism, unspecified] Onset: 2 07-18-2022 Chronic Unclassified (1 source) Other intervertebral disc degeneration, lumbar region with discogenic back pain only; Translations: [Other intervertebral disc degeneration, lumbar region with discogenic back pain only] Onset: 5 Viral infection (6 sources) COVID-19; Translations: [Other encephalopathy] Onset: 1 Chronic Past or Other Problems Problem Classification Problem Date Documented Da te Episodic/Chronic Epilepsy; convulsions (20 sources) Epilepsy; Translations: [Epilepsy, unspecified, not intractable, without status epilepticus] Onset: 07-18-2022 Resolved: 04-29-2024 07-18-2022 Chronic Epilepsy; convulsions (20 sources) Seizure; Translations: [Unspecified convulsions] Onset: 05-25-2022 Episodic Fluid and electrolyte disorders (10 sources) Dehydration; Translations: [Dehydration] Onset: 06-15-2021 Resolved: 07-15-2021 Episodic Immunizations and screening for infectious disease (1 source) Rheumatoid factor positive; Translations: [Other specified abnormal immunological findings in serum] 08-29-2023 Episodic Nausea and vomiting (20 sources) Intractable nausea and vomiting; Translations: [Nausea with vomiting, unspecified] Onset: 09-26-2023 Episodic Other aftercare (1 source) Encounter for therapeutic drug level monitoring; Translations: [Encounter for therapeutic drug level monitoring] Onset: 12-27-2023 Episodic Other connective tissue disease (2 sources) Fibromyalgia; Translations: [Fibromyalgia] 08-29-2023 Episodic Other connective tissue disease (2 sources) Bilateral trochanteric bursitis; Translations: [Trochanteric bursitis, right hip] 08-29-2023 Episodic Other connective tissue disease (1 source) Fibromyalgia; Translations: [Fibromyalgia] Onset: 12-27-2023 Episodic Other connective tissue disease (1 source) Trochanteric bursitis, right hip; Translations: [Trochanteric bursitis, right hip] Onset: 12-27-2023 Episodic Other connective tissue disease (1 source) Trochanteric bursitis, left hip; Translations: [Trochanteric bursitis, left hip] Onset: 12-27-2023 Episodic Other gastrointestinal disorders (20 sources) Constipation; Translations: [Constipation, unspecified] Onset: 09-11-2023 09-11-2023 Episodic Other nervous system disorders (5 sources) Skin sensation disturbance; Translations: [Unspecified disturbances of skin sensation] Onset: 09-12-2012 09-12-2012 Episodic Other nutritional; endocrine; and metabolic disorders (19 sources) Abnormal weight gain; Translations: [Abnormal weight gain] Onset: 04-29-2024 04-29-2024 Episodic Other upper respiratory infections (20 sources) Acute upper respiratory infection; Translations: [Acute upper respiratory infection, unspecified] Onset: 09-26-2023 Resolved: 04-02-2024 04-02-2024 Episodic Residual codes; unclassified (6 sources) Disorientated; Translations: [Disorientation, unspecified] Onset: 06-15-2021 Episodic Residual codes; unclassified (20 sources) Tobacco user; Translations: [Tobacco use] Onset: 09-12-2012 Resolved: 10-01-2024 09-12-2012 Episodic Residual codes; unclassified (20 sources) Insomnia; Translations: [Insomnia, unspecified] Onset: 08-14-2023 08-14-2023 Episodic Viral infection (20 sources) Disease caused by 2019-nCoV; Translations: [COVID-19] Onset: 06-14-2021 Episodic Results Test Name Value Interpretation Reference Range Facility Basic Metabolic Profon 08-21 Anion gap [Moles/Vol] 12 mmol/L Normal - [facility] Comment on above: Performed By: #### C DP, BMP #### [facility] [address] [place] [address] [place] [address] [employer] Operator: Natacha Rivers MD BUN/CRE Ratio 11 Normal - [facility] Comment on above: Performed By: #### C DP, BMP #### [address] [place] [address] [employer] Operator: Natacha Rivers MD Calcium [Mass/Vol] 9.9 mg/dL Normal 8.6-10.4 [facility] Comment on above: Performed By: #### C DP, BMP #### [facility] [address] [place] [address] [place] [address] [employer] Operator: Natacha Rivers MD Chloride [Moles/Vol] 99 mmol/L Normal 98-[address] [facility] Comment on above: Performed By: #### C DP, BMP #### [address] [place] [address] [employer] Operator: Natacha Rivers MD CO2 [Moles/Vol] 23 mmol/L Normal 20- [facility] Comment on above: Performed By: #### C DP, BMP #### [facility] [address] [place] [address] [place] [address] [employer] Operator: Natacha Rivers MD Creatinine [Mass/Vol] 1.2 mg/dL High 0.50-0.90 [facility] Comment on above: Performed By: #### C DP, BMP #### [facility] [address] [place] [address] [employer] Operator: Natacha Rivers MD GFR/1.73 sq M.predicted among non-blacks MDRD (S/P/Bld) [Vol rate/Area] 54 mL/min/{1.73_m2} Low >60 [facility] Comment on above: Result Comment: These results are not intended for [...] following therapy that affects renal tubular secretion. Performed By: #### C ARASH, BMP #### [facility] [address] [place] [address] [place] [address] [employer] Operator: Natacha Rivers MD Glucose [Mass/Vol] 95 mg/dL Normal 74-99 [facility] Comment on above: Performed By: #### C DP, BMP #### [address] [place] [address] [employer] Operator: Natacha Rivers MD Potassium [Moles/Vol] 4.1 mmol/L Normal 3.7-5.3 [facility] Comment on above: Performed By: #### C DP, BMP #### [address] [place] [address] [employer] Operator: Natacha Rivers MD Sodium [Moles/Vol] 134 mmol/L Low 136-145 [facility] Comment on above: Performed By: #### C DP, BMP #### [facility] [address] [place], [facility] [employer] Operator: Natacha Rivers MD Urea nitrogen [Mass/Vol] 13 mg/dL Normal 6-20 [facility] Comment on above: Performed By: #### C DP, BMP #### [address] [place], [facility] [employer] Operator: Natacha Rivers MD CBC with Diffon 08-21-2024 Abs. Basophil 0.03 k/uL Normal 0.00-0.20 [facility] Comment on above: Performed By: #### C DP, BMP #### [address] [place] [address] [employer] Operator: Natacha Rivers MD Abs.Imm.Granulocyte 0.04 k/uL Normal 0.00-0.30 [facility] Comment on above: Performed By: #### C DP, BMP #### [address] [place], [place] [address] [employer] Operator: Natacha Rivers MD Abs.Neutrophil (Seg) 7.56 k/uL Normal 1.50-8.[address] [facility] Comment on above: Performed By: #### C DP, BMP #### [address] [place], [facility] [employer] Operator: Natacha Rivers MD Basophils/100 WBC (Bld) 0 % Normal 0-2 [facility] Comment on above: Performed By: #### C DP, BMP #### [facility] [address] [place] [address] [address], [facility] [employer] Operator: Natacha Rivers MD Eosinophils (Bld) [#/Vol] 0.09 10*3/uL Normal 0.00-0.44 [facility] Comment on above: Performed By: #### C DP, BMP #### [facility] [address] [place], [facility] [employer] Operator: Natacha Rivers MD Eosinophils/100 WBC (Bld) 1 % Normal 1-4 [facility] Comment on above: Performed By: #### C DP, BMP #### [address] [place], [place] [id number] [employer] Operator: Natacha Rivers MD Erythrocyte distribution width (RBC) [Ratio] 13.2 % Normal 11.8-14.4 [facility] Comment on above: Performed By: #### C DP, BMP #### [address] [place], [place] [id number] [employer] Operator: Natacha Rivers MD Hematocrit (Bld) [Volume fraction] 37.8 % Normal 36.3-47.1 [facility] Comment on above: Performed By: #### C DP, BMP #### [address] [place] [address] [employer] Operator: Natacha Rivers MD Hemoglobin (Bld) [Mass/Vol] 12.8 g/dL Normal 11.9-15.1 [facility] Comment on above: Performed By: #### C DP, BMP #### [address] [place] [address] [employer] Operator: Natacha Rivers MD Immature granulocytes/100 WBC (Bld) 0 % Normal 0 [facility] Comment on above: Performed By: #### C DP, BMP #### [address] [place], [place] [id number] [employer] Operator: Natacha Rivers MD Lymphocytes (Bld) [#/Vol] 2.72 10*3/uL Normal 1.10-3.70 [facility] Comment on above: Performed By: #### C DP, BMP #### [address] [place] [address] [employer] Operator: Natacha Rivers MD Lymphocytes/100 WBC (Bld) 25 % Normal 24-43 [facility] Comment on above: Performed By: #### C DP, BMP #### [address] [place], [place] [id number] [employer] Operator: Natacha Rivers MD MCH (RBC) [Entitic mass] 29.5 pg Normal 25.2-33.5 [facility] Comment on above: Performed By: #### C DP, BMP #### [address] [place], [facility] [employer] Operator: Natacha Rivers MD MCHC (RBC) [Mass/Vol] 33.9 g/dL Normal 28.4-34.8 [facility] Comment on above: Performed By: #### C DP, BMP #### [address] [place] [id number] [employer] Operator: Natacha Rivers MD MCV (RBC) [Entitic vol] 87.1 fL Normal 82.6-102.9 [facility] Comment on above: Performed By: #### C DP, BMP #### [address] [place], [place] [id number] [employer] Operator: Natacha Rivers MD Monocytes (Bld) [#/Vol] 0.49 10*3/uL Normal 0.10-1.20 [facility] Comment on above: Performed By: #### C DP, BMP #### [address] [place], [facility] [employer] Operator: Natacha Rivers MD Monocytes/100 WBC (Bld) 5 % Normal 3-12 M [facility] Comment on above: Performed By: #### C DP, BMP #### [address] [place], [place] [id number] [employer] Operator: Natacha Rivers MD Neutrophil (Seg) 69 % High 36-65 [facility] Comment on above: Performed By: #### C DP, BMP #### [address] [place] [address] [employer] Operator: Natacha Rivers MD NRBC Automated 0.0 per 100 WBC Normal 0.0 [facility] Comment on above: Performed By: #### C DP, BMP #### [facility] [address] [place] [address] [employer] Operator: Natacha Rivers MD Platelet mean volume (Bld) [Entitic vol] 9.4 fL Normal 8.1-13.5 [facility] Comment on above: Performed By: #### C DP, BMP #### [facility] [address] [place] [address] [employer] Operator: Natacha Rivers MD Platelets (Bld) [#/Vol] 386 10*3/uL Normal 138-453 [facility] Comment on above: Performed By: #### C DP, BMP #### [address] [place] [address] [employer] Operator: Natacha Rivers MD RBC (Bld) [#/Vol] 4.34 10*6/uL Normal 3.95-5.11 [facility] Comment on above: Performed By: #### C DP, BMP #### [facility] [address] [place] [address] [employer] Operator: Natacha Rivers MD WBC (Bld) [#/Vol] 10.9 10*3/uL Normal 3.5-11.3 [facility] Comment on above: Performed By: #### C DP, BMP #### [facility] [address] [place] [address] [employer] Operator: Natacha Rivers MD CT HEAD WO CONTRASTon 2024 CT HEAD WO CONTRAST EXAMINATION: CT OF THE HEAD WITHOUT CONTRAST 08/21/2024 1:06 pm TECHNIQUE: CT of the head was performed without the administration of intravenous contrast. Automated exposure control, iterative reconstruction, and/or weight based adjustment of the mA/kV was utilized to reduce the radiation dose to as low as reasonably achievable. COMPARISON: None. HISTORY: ORDERING SYSTEM PROVIDED HISTORY: ?seizure TECHNOLOGIST PROVIDED HISTORY: ?seizure Decision Support Exception - unselect if not a suspected or confirmed emergency medical condition->Emergenc y Medical Condition (MA) FINDINGS: BRAIN/VENTRICLES: There is no acute intracranial hemorrhage, mass effect or midline shift. No abnormal extra-axial fluid collection. The kirby-white differentiation is maintained without evidence of an acute infarct. There is no evidence of hydrocephalus. ORBITS: The visualized portion of the orbits demonstrate no acute abnormality. SINUSES: Left maxillary sinus on most completely opacified. Small polyp in the superior right maxillary sinus. SOFT TISSUES/SKULL: No acute abnormality of the visualized skull or soft tissues. IMPRESSION: No acute intracranial abnormality. Interpreted by: Iftikhar Mccormick MD Signed by: Iftikhar Mccormick MD 08/21/24 Final result Normal [facility] COMPLETE BLOOD COUNTon 08-19 Erythrocyte distribution width (RBC) [Ratio] 13.9 % Normal 11.5-15.0 [facility] Comment on above: Performed By: #### C KALEY, 1985-11, , CBC, 45732-8, 58102-0 #### [facility] ([id number]) [address], [address] [place] [address] Hematocrit (Bld) [Volume fraction] 37.0 % Normal 35-47 [facility] Comment on above: Performed By: #### C KALEY, 1985-11, , CBC, 29871-4, 77708-1 #### [facility] ([id number]) [address], [address] [place] [address] Hemoglobin (Bld) [Mass/Vol] 12.7 g/dL Normal 11.7-15.5 [facility] Comment on above: Performed By: #### C KALEY, 1985-11, , CBC, 99322-5, 85424-0 #### [facility] ([id number]) [address], [address] [place] [address] MCH (RBC) [Entitic mass] 30.0 pg Normal 27-34 [facility] Comment on above: Performed By: #### C KALEY, 1985-11, , CBC, 53359-4, 71697-9 #### [facility] ([id number]) [address], [address] [place] [address] MCHC (RBC) [Mass/Vol] 34.3 g/dL Normal 32-36 [facility] Comment on above: Performed By: #### C KALEY, 1985-11, , CBC, 76354-7, 39147-6 #### [facility] ([id number]) [address], [facility] [address] [place] [address] MCV (RBC) [Entitic vol] 88 fL Normal 80-100 [facility] Comment on above: Performed By: #### Jessi ROCHE, 1985-11, , CBC, 85305-4, 64387-6 #### [facility] ([id number]) [address] [place] [address] Platelet mean volume (Bld) [Entitic vol] 7.6 fL Normal 7-12 [facility] Comment on above: Performed By: #### C KALEY, 1985-11, , CBC, 18519-7, 41216-4 #### [facility] ([id number]) [address], [address] [place] [address] Platelets (Bld) [#/Vol] 358 10*3/uL Normal 150-450 [facility] Comment on above: Performed By: #### Jessi ROCHE, 1985-11, , CBC, 95136-1, 59939-6 #### [facility] ([id number]) [address], [address] [place] [address] RBC COUNT 4.23 X10E12/L Normal 3.80-5.20 [facility] Comment on above: Performed By: #### C KALEY, 1985-11, , CBC, 07042-4, 73697-9 #### [facility] ([id number]) [address], [address] [place] [address] WBC (Bld) [#/Vol] 9.6 10*3/uL Normal 4.0-11.0 [facility] Comment on above: Performed By: #### C KALEY, 1985-11, , CBC, 53777-3, 70552-0 #### [facility] ([id number]) [address], [address] [place] [address] COMPREHENSIVE METABOLIC PANE Khanh 08-19-2024 Albumin [Mass/Vol] 3.9 g/dL Normal 3.2-5.3 [facility] Comment on above: Performed By: #### C KALEY, 1985-11, , CBC, 16739-1, 93102-4 #### [facility] ([id number]) [address] [place] [address] ALP [Catalytic activity/Vol] 101 U/L Normal 39-130 [facility] Comment on above: Performed By: #### C KALEY, 1985-11, , CBC, 96560-8, 80023-0 #### [facility] ([id number]) [address], [address] [place] [address] ALT [Catalytic activity/Vol] 23 U/L Normal 0-31 [facility] Comment on above: Performed By: #### C KALEY, 1985-11, , CBC, 67894-2, 81636-6 #### [facility] ([id number]) [address] [place] [address] Anion gap [Moles/Vol] 9 mmol/L Normal 5-15 [facility] Comment on above: Performed By: #### C KALEY, 1985-11, , CBC, 42831-7, 40311-5 #### [facility] ([id number]) [address], [address] [place] [address] AST [Catalytic activity/Vol] 23 U/L Normal 0-41 [facility] Comment on above: Performed By: #### C KALEY, 1985-11, , CBC, 20220-9, 91030-4 #### [facility] ([id number]) [address] [place] [address] Bilirubin [Mass/Vol] 0.5 mg/dL Normal 0.3-1.2 [place] Comment on above: Performed By: #### C KALEY, 1985-11, , CBC, 90070-9, 93319-9 #### [facility] ([id number]) [address] [place] [address] Calcium [Mass/Vol] 10.1 mg/dL Normal 8.5-10.5 [facility] Comment on above: Performed By: #### C KALEY, 1985-11, , CBC, 02604-4, 09123-9 #### [facility] ([id number]) [address] [place] [address] Chloride [Moles/Vol] 101 mmol/L Normal 98-109 [place] Comment on above: Performed By: #### Jessi ROCHE, 1985-11, , CBC, 88111-9, 92134-5 #### [facility] ([id number]) [address], [address] [place] [address] CO2 [Moles/Vol] 25 mmol/L Normal 22-32 [facility] Comment on above: Performed By: #### Jessi ROCHE, 1985-11, , CBC, 41950-2, 07639-8 #### [facility] ([id number]) [address] [place] [address] Creatinine [Mass/Vol] 1.24 mg/dL High 0.40-1.00 [facility] Comment on above: Result Comment: METH OD TRACEABLE TO IDMS STANDARD Performed By: #### Jessi ROCHE, 1985-11, , CBC, 63965-6, 08551-8 #### [facility] ([id number]) [address] [address] [place] [address] GFR/1.73 sq M.predicted among non-blacks MDRD (S/P/Bld) [Vol rate/Area] 51 mL/min/{1.73_m2} Low >59 [facility] Comment on above: Result Comment: Reported eGFR is based on the CKD-EPI 2020 equation that does not use a race coefficient. Performed By: #### Jessi ROCHE, 1985-11, , CBC, 31363-8, 92744-7 #### [facility] ([id number]) [address] [place] [address] Glucose [Mass/Vol] 81 mg/dL Normal 65-99 [facility] Comment on above: Performed By: #### Jessi ROCHE, 1985-11, , CBC, 19158-1, 42507-6 #### [facility] ([id number]) [address] [address] [place] [address] Potassium [Moles/Vol] 4.4 mmol/L Normal 3.5-5.0 [facility] Comment on above: Performed By: #### Jessi ROCHE, 1985-11, , CBC, 09130-4, 52500-3 #### [facility] ([id number]) [address] [address] [place] [address] Protein [Mass/Vol] 7.6 g/dL Normal 6.0-8.0 [facility] Comment on above: Performed By: #### Jessi ROCHE, 1985-11, , CBC, 77258-6, 28433-1 #### [facility] ([id number]) [address] [place] [address] Sodium [Moles/Vol] 135 mmol/L Normal 134-146 [facility] Comment on above: Performed By: #### C KALEY, 1985-11, , CBC, 31798-6, 35128-9 #### [facility] ([id number]) [address] [place] [address] Urea nitrogen [Mass/Vol] 10 mg/dL Normal 5-23 [facility] Comment on above: Performed By: #### Jessi ROCHE, 1985-11, , CBC, 23233-7, 54155-1 #### [facility] ([id number]) [address], [facility] [address] [place] [address] CRP [Mass/Vol]on 08-19-2024 C REACTIVE PROTEIN 1.4 mg/dL High 0.000-0.744 [facility] Comment on above: Performed By: #### Jessi ROCHE, 1985-11, , CBC, 50047-3, 12525-5 #### [facility] ([id number]) [address], [facility] [address] [place] [address] ESR Photometric method (Bld) [Velocity]on 08-19-2024 ESR, ERYTHROCYTE SEDIMENTATION RATE 31 mm/h High 0-30 [facility] Comment on above: Performed By: #### Jessi ROCHE, 1985-11, , CBC, 65294-3, 52611-4 #### [facility] ([id number]) [address], [facility] [address] [place] [address] Rheumatoid factor Nephelomet ry Qn (S)on 08-19-2024 RHEUMATOID FACTOR 15 IU/mL Normal <20 [facility] Comment on above: Performed By: #### Jessi ROCHE, 1985-11, , CBC, 18718-9, 98743-2 #### [facility] ([id number]) [address], [address] [place] [address] ALL LIPID PROFILE (FASTING)o n 04-03-2024 CHOL HDL RATIO 3.5 [facility] Comment on above: 3.3 - 4.4 LOW RISK 4.4 - 7.1 AVERAGE RISK 7.1 - 11.0 MODERATE RISK >11.0 HIGH RISK Cholesterol [Mass/Vol] 189 mg/dL NINF - 200 mg/dL [facility] Cholesterol in HDL [Mass/Vol] 54 mg/dL 40 - 60 mg/dL [facility] Comment on above: > or =60 mg/dl - LOW CARDIOVASCULAR RISK <40 mg/dl - HIGH CARDIOVASCULAR RISK Magnesium [Mass/Vol] 115.8 mg/dL [facility] Comment on above: <100 mg/dl OPTIMAL 100-129 mg/dl NEAR OR ABOVE OPTIMAL 130-159 mg/dl BORDERLINE HIGH 160-189 mg/dl HIGH >190 mg/dl VERY HIGH Magnesium [Mass/Vol] 19.2 mg/dL [facility] Triglyceride [Mass/Vol] 96 mg/dL NINF - 150 mg/dL [facility] ALL MAGNESIUMon 04-03-2024 Magnesium [Mass/Vol] 1.4 mg/dL Low 1.8 - 2 .4 mg/dL [facility] ALL THYROID STIM HORMONEon 0 04-03-2024 TSH Qn 2.877 m[IU]/L [facility] CMP (CMP) (FOR REMOTE FH C USE)on 04-03-2024 Albumin [Mass/Vol] 3.6 g/dL 3.4 - 5.0 g/dL [facility] ALBUMIN GLOBULIN RATIO 1.1 NO [facility] ALP [Catalytic activity/Vol] 88 U/L 46 - 116 U/L [facility] ALT [Catalytic activity/Vol] 25 U/L 14 - 59 U/L [facility] Anion gap [Moles/Vol] 13.6 mmol/L NO [facility] AST [Catalytic activity/Vol] 18 U/L 15 - 37 U/L [facility] Bilirubin [Mass/Vol] 0.3 mg/dL 0.2 - 1 .0 mg/dL [facility] Calcium [Mass/Vol] 9.3 mg/dL 8.5 - 10. 1 mg/dL [facility] Chloride [Moles/Vol] 102 mmol/L 98 - 10 7 mmol/L [facility] CO2 [Moles/Vol] 25.5 mmol/L 21.0 - 32.0 mmol/L [facility] Creatinine [Mass/Vol] 1.18 mg/dL High 0.55 - 1.02 mg/dL [facility] GFR/1.73 sq M.predicted CKD-EPI (S/P/Bld) [Vol rate/Area] 57 Low 60 - PINF [facility] Globulin (S) [Mass/Vol] 3.4 g/dL N [facility] Glucose [Mass/Vol] 91 mg/dL 74 - 106 mg/dL [facility] Potassium [Moles/Vol] 4.1 mmol/L 3.5 - 5.1 mmol/L [facility] Protein [Mass/Vol] 7.0 g/dL 6.4 - 8.2 g/dL [facility] Sodium [Moles/Vol] 137 mmol/L 136 - 145 mmol/L [facility] TBH EGFR-NON AF ANGUILLAN 47 Low 60 - PINF [facility] Urea nitrogen [Mass/Vol] 16.0 mg/dL 7.0 - 18.0 mg/dL [facility] Urea nitrogen/Creatinine [Mass ratio] 13.6 mg/mg [facility] No Panel Informationon 04-03 Interpretation and review of laboratory results Abnormal [facility] ELOY by IFAon 12-26-2022 Antinuclear Antibodies, IFA Positive Abnormal [facility] Comment on above: Result Comment: Nega tive <1:80 Borderline 1:80 Positive >1:80 Performed By: #### A NAIFA ####[facility] [address] [place] [address]Dr. Flaquita Dennison ANTISTREPTOLYSIN O AB (ASO)o n 12-23-2022 Antistreptolysin O Ab <20.0 Normal 0.0-200.0 [facility] Comment on above: Performed By: #### A SOAB ####[facility] [address] [place] [id number] Dennison RHEUMATOID FACTORon 12-24-19 23 RA Latex Turbid. 16.7 IU/mL Critically high <14.0 [facility] Comment on above: Performed By: #### R F ####[facility] [address] [place] [address]Dr. Flaquita Dennison CBC AUTO DIFFon 12-22-2022 BASO # 0.0 103/ul Normal 0.0-0.1 [facility] Comment on above: Performed By: #### C BC ####[facility] [address] [place] [address]Dr. Flaquita Juma Basophils/100 WBC (Bld) 0.3 % Normal 0.2-2.0 [facility] Comment on above: Performed By: #### C BC ####[facility] [address] [place], [place] [address]Dr. Emilianaphoenix Dennison EO # 0.1 103/ul Normal 0.0-0.7 [facility] Comment on above: Performed By: #### C BC ####[facility] [address] [place], [place] [address]Dr. Emilianaphoenix Dennison Eosinophils/100 WBC (Bld) 1.4 % Normal 0.9-7.0 [facility] Comment on above: Performed By: #### C BC ####[facility] [address] [place], [place] [address]Dr. Flaquita Dennison Erythrocyte distribution width (RBC) [Ratio] 14.4 % Normal 11.0-15.0 [facility] Comment on above: Performed By: #### C BC ####[facility] [address] [place], [place] [address]Dr. Flaquita Dennison Hematocrit (Bld) [Volume fraction] 35.3 % Critically low 36.0-48.0 [facility] Comment on above: Performed By: #### C BC ####[facility] [address] [place], [place] [address]Dr. Flaquita Dennison Hemoglobin (Bld) [Mass/Vol] 11.5 g/dL Critically low 12.0-16.0 [facility] Comment on above: Performed By: #### C BC ####[facility] [address] [place], [place] [address]Dr. Flaquita Dennison IG # 0.02 10e3/ul Normal 0.00-0.03 [facility] Comment on above: Performed By: #### C BC ####[facility] [address] [place] [address]DrDre Dennison IG % 0.3 % Normal 0.0-0.5 [facility] Comment on above: Performed By: #### C BC ####[facility] [address] [place] [address]DrDre Dennison LYMPH # 2.0 103/ul Normal 1.2-3.8 [facility] Comment on above: Performed By: #### C BC ####[facility] [address] [place] [address]DrDre Dennison Lymphocytes/100 WBC (Bld) 28.3 % Normal 20.5-60.0 [facility] Comment on above: Performed By: #### C BC ####[facility] [address] [place], [place] [address]DrDre Dennison MANUAL DIFF REQ NO Normal [facility] Comment on above: Performed By: #### C BC ####[facility] [address] [place], [place] [id number]. Emilianaphoenix Dennison MCH (RBC) [Entitic mass] 29.9 pg Normal 26.7-34.0 [facility] Comment on above: Performed By: #### C BC ####[facility] [address] [place], [place] [id number] Dennison MCHC (RBC) [Mass/Vol] 32.6 g/dL Normal 29.9-35.2 [facility] Comment on above: Performed By: #### C BC ####[facility] [address] [place], [place] [id number] Dennison MCV (RBC) [Entitic vol] 91.7 fL Normal 81.0-99.0 [facility] Comment on above: Performed By: #### C BC ####[facility] [address] [place] [id number] Dennison MONO # 0.3 103/ul Normal 0.3-0.8 [facility] Comment on above: Performed By: #### C BC ####[facility] [address] [place] [id number]. Flaquita Dennison Monocytes/100 WBC (Bld) 4.6 % Normal 1.7-12.0 [facility] Comment on above: Performed By: #### C BC ####[facility] [address] [place] [id number]. Flaquita Dennison NEUT # 4.7 103/ul Normal 1.4-6.5 [facility] Comment on above: Performed By: #### C BC ####[facility] [address] [place] [address]Dr. Flaquita Dennison Neutrophils/100 WBC (Bld) 65.1 % Normal 43.0-75.0 [facility] Comment on above: Performed By: #### C BC ####[facility] [address] [place] [address]Dr. Flaquita Dennison Platelet mean volume (Bld) [Entitic vol] 9.1 fL Critically low 9.5-13.5 [facility] Comment on above: Performed By: #### C BC ####[facility] [address] [place] [address]Dr. Flaquita Dennison PLT 320 103/ul Normal 150-450 [facility] Comment on above: Performed By: #### C BC ####[facility] [address] [place] [id number]. Flaquita Dennison RBC 3.85 106/ul Critically low 4.20-5.40 [facility] Comment on above: Performed By: #### C BC ####[facility] [address] [place] [id number]. Flaquita Dennison WBC 7.2 103/ul Normal 4.0-11.0 [facility] Comment on above: Performed By: #### C BC ####[facility] [address] [place] [id number]. Flaquita Dennison CPKon 12-22-2022 CK [Catalytic activity/Vol] 40 U/L Normal 26-192 [facility] Comment on above: Performed By: #### M YO, MG, URIC, CRP, CK, TSH, CMP ####[facility] [address] [place] [address]Dr. Flaquita Dennison CRPon 12-22-2022 CRP 0.4 mg/dL Normal <=1.0 [facility] Comment on above: Performed By: #### M YO, MG, URIC, CRP, CK, TSH, CMP #### [facility] [address] [place] [address] [address] Flaquita Dennison FREE T4on 12-22-2022 Free T4 [Mass/Vol] 0.67 ng/dL Critically low 0.76-1.46 [facility] Comment on above: Performed By: #### F T4 #### [facility] [address] [place] [address] Dr. Flaquita Dennison MAGNESIUMon 12-22-2022 Magnesium [Mass/Vol] 1.7 mg/dL Critically low 1.8-2.4 [facility] Comment on above: Performed By: #### M YO, MG, URIC, CRP, CK, TSH, CMP ####[facility] [address] [place] [address]DrDre Dennison MYOGLOBINon 12-22-2022 MARCELINO 30 ng/mL Normal 9-82 [facility] Comment on above: Performed By: #### M YO, MG, URIC, CRP, CK, TSH, CMP ####[facility] [address] [place] [address]Dr. Flaquita Dennison PROF 14(COMP METB)on 023 Albumin [Mass/Vol] 3.7 g/dL Normal 3.4-5.0 [facility] Comment on above: Performed By: #### M YO, MG, URIC, CRP, CK, TSH, CMP #### [facility] [address] [place] [address] [address] Flaquita Dennison Albumin/Globulin [Mass ratio] 0.9 {ratio} Normal [facility] Comment on above: Performed By: #### M YO, MG, URIC, CRP, CK, TSH, CMP #### [facility] [address] [place] [address] Dr. Flaquita Dennison ALP [Catalytic activity/Vol] 130 U/L Critically high 46-116 [facility] Comment on above: Performed By: #### M YO, MG, URIC, CRP, CK, TSH, CMP #### [facility] [address] [place] [address] Dr. Flaquita Dennison ALT [Catalytic activity/Vol] 24 U/L Normal 14-59 [facility] Comment on above: Performed By: #### M YO, MG, URIC, CRP, CK, TSH, CMP #### [facility] [address] [place] [address] Dr. Flaquita Dennison Anion gap [Moles/Vol] 13.1 mmol/L Normal [facility] Comment on above: Performed By: #### M YO, MG, URIC, CRP, CK, TSH, CMP #### [facility] [address] [place] [address] Dr. Flaquita Dennison AST [Catalytic activity/Vol] 19 U/L Normal 15-37 [facility] Comment on above: Performed By: #### M YO, MG, URIC, CRP, CK, TSH, CMP #### [facility] [address] [place] [address] Dr. Flaquita Dennison Bilirubin [Mass/Vol] 0.2 mg/dL Normal 0.2-1.0 [facility] Comment on above: Performed By: #### M YO, MG, URIC, CRP, CK, TSH, CMP #### [facility] [address] [place] [address] Dr. Flaquita Dennison Calcium [Mass/Vol] 9.2 mg/dL Normal 8.5-10.1 [facility] Comment on above: Performed By: #### M YO, MG, URIC, CRP, CK, TSH, CMP #### [facility] [address] [place] [address] Dr. Flaquita Dennison Chloride [Moles/Vol] 108 mmol/L Critically high 98-107 [facility] Comment on above: Performed By: #### M YO, MG, URIC, CRP, CK, TSH, CMP #### [facility] [address] [place] [address] Dr. Flaquita Dennison CO2 [Moles/Vol] 23.5 mmol/L Normal 21.0-32.0 [facility] Comment on above: Performed By: #### M YO, MG, URIC, CRP, CK, TSH, CMP #### [facility] [address] [place] [address] Dr. Flaquita Dennison Creatinine [Mass/Vol] 1.05 mg/dL Critically high 0.55-1.02 [facility] Comment on above: Performed By: #### M YO, MG, URIC, CRP, CK, TSH, CMP #### [facility] [address] [place] [address] Dr. Flaquita Dennison EGFR-AF ANGUILLAN >60 Normal >=60 [facility] Comment on above: Performed By: #### M YO, MG, URIC, CRP, CK, TSH, CMP #### [facility] [address] [place] [address] Dr. Flaquita Dennison EGFR-NON AF ANGUILLAN 54 mL/min/1.73m2 Critically low >=60 [facility] Comment on above: Performed By: #### M YO, MG, URIC, CRP, CK, TSH, CMP #### [facility] [address] [place] [address] Dr. Flaquita Dennison Globulin (S) [Mass/Vol] 4.0 g/dL Normal [facility] Comment on above: Performed By: #### M YO, MG, URIC, CRP, CK, TSH, CMP #### [facility] [address] [place] [address] Dr. Flaquita Dennison Glucose [Mass/Vol] 96 mg/dL Normal 74-106 [facility] Comment on above: Performed By: #### M YO, MG, URIC, CRP, CK, TSH, CMP #### [facility] [address] [place] [address] Dr. Flaquita Dennison Potassium [Moles/Vol] 3.8 mmol/L Normal 3.5-5.1 [facility] Comment on above: Performed By: #### M YO, MG, URIC, CRP, CK, TSH, CMP #### [facility] [address] [place] [address] [address] Flaquita Dennison Protein [Mass/Vol] 7.7 g/dL Normal 6.4-8.2 [facility] Comment on above: Performed By: #### M YO, MG, URIC, CRP, CK, TSH, CMP #### [facility] [address] [place] [address] [address] Flaquita Dennison Sodium [Moles/Vol] 141 mmol/L Normal 136-145 [facility] Comment on above: Performed By: #### M YO, MG, URIC, CRP, CK, TSH, CMP #### [facility] [address] [place] [address] [address] Flaquita Dennison Urea nitrogen [Mass/Vol] 18.0 mg/dL Normal 7.0-18.0 [facility] Comment on above: Performed By: #### M YO, MG, URIC, CRP, CK, TSH, CMP #### [facility] [address] [address] [address] Flaquita Dennison Urea nitrogen/Creatinine [Mass ratio] 17.1 mg/mg Normal [facility] Comment on above: Performed By: #### M YO, MG, URIC, CRP, CK, TSH, CMP #### [facility] [address] [place] [address] [address] Flaquita Dennison SED RATE [facility]on 2022 SED RATE 37 mm/hr Critically high <=30 [facility] Comment on above: Performed By: #### S EDR ####[facility] [address] [place] [address]Dr. Flaquita Dennison TSHon 12-22-2022 TSH 1.258 uIU/mL Normal 0.358-3.740 [facility] Comment on above: Performed By: #### M YO, MG, URIC, CRP, CK, TSH, CMP #### [facility] [address] [address] [address] Flaquita Dennison URIC ACID SERUMon 12-22-2022 Urate [Mass/Vol] 3.6 mg/dL Normal 2.6-6.0 [facility] Comment on above: Performed By: #### M YO, MG, URIC, CRP, CK, TSH, CMP #### [facility] [address] [place], [place] [address] Dr. Flaquita Dennison CBC AUTO DIFFon 11-23-2022 BASO # 0.0 103/ul Normal 0.0-0.1 [facility] Comment on above: Performed By: #### C BC ####[facility] [address] [place] [address]DrDre Dennison Basophils/100 WBC (Bld) 0.2 % Normal 0.2-2.0 [facility] Comment on above: Performed By: #### C BC ####[facility] [address] [place] [address]DrDre Dennison EO # 0.2 103/ul Normal 0.0-0.7 [facility] Comment on above: Performed By: #### C BC ####[facility] [address] [place] [address]DrDre Dennison Eosinophils/100 WBC (Bld) 1.8 % Normal 0.9-7.0 [facility] Comment on above: Performed By: #### C BC ####[facility] [address] [place] [address]DrDre Dennison Erythrocyte distribution width (RBC) [Ratio] 14.5 % Normal 11.0-15.0 [facility] Comment on above: Performed By: #### C BC ####[facility] [address] [place] [address]DrDre Dennison Hematocrit (Bld) [Volume fraction] 36.6 % Normal 36.0-48.0 [facility] Comment on above: Performed By: #### C BC ####[place] [address] [place] [address]DrDre Dennison Hemoglobin (Bld) [Mass/Vol] 12.1 g/dL Normal 12.0-16.0 [facility] [place] Comment on above: Performed By: #### C BC ####[place] [address]mc[address] [place] [id number]. Flaquita Dennison IG # 0.04 10e3/ul Critically high 0.00-0.03 [facility] Comment on above: Performed By: #### C BC ####[place] [address] [place] [id number]. Flaquita Dennison IG % 0.5 % Normal 0.0-0.5 [facility] Comment on above: Performed By: #### C BC ####[place] X[address]xt54[address] [place] [id number]. Flaquita Dennison LYMPH # 2.8 103/ul Normal 1.2-3.8 [facility] Comment on above: Performed By: #### C BC ####[place] [address] [place] [address]Dr. Flaquita Dennison Lymphocytes/100 WBC (Bld) 34.5 % Normal 20.5-60.0 [facility] Comment on above: Performed By: #### C BC ####[place] [address] [place] [address]Dr. Flaquita Dennison MANUAL DIFF REQ NO Normal [facility] [place] Comment on above: Performed By: #### C BC ####[place] [address] [place] [address]Dr. Flaquita Juma MCH (RBC) [Entitic mass] 30.6 pg Normal 26.7-34.0 [facility] Comment on above: Performed By: #### C BC ####[place] [address] [place] [address]Dr. Flaquita Juma MCHC (RBC) [Mass/Vol] 33.1 g/dL Normal 29.9-35.2 [facility] Comment on above: Performed By: #### C BC ####[place] [address] [place] [address]Dr. Emilianaphoenix Dennison MCV (RBC) [Entitic vol] 92.4 fL Normal 81.0-99.0 [facility] Comment on above: Performed By: #### C BC ####[place] [address]wm[address] [place] [id number]. Flaquita Dennison MONO # 0.3 103/ul Normal 0.3-0.8 [facility] [place] Comment on above: Performed By: #### C BC ####[place] [address]eb[address] [place] [id number]. Flaquita Dennison Monocytes/100 WBC (Bld) 4.0 % Normal 1.7-12.0 [facility] Comment on above: Performed By: #### C BC ####[place] [address] [place] [id number]. Flaquita Dennison NEUT # 4.8 103/ul Normal 1.4-6.5 [facility] Comment on above: Performed By: #### C BC ####[place] [address]rmc[address] [place] [id number]. Flaquita Dennison Neutrophils/100 WBC (Bld) 59.0 % Normal 43.0-75.0 [facility] [place] Comment on above: Performed By: #### C BC ####[place] [address] [place] [id number]. Flaquita Dennison Platelet mean volume (Bld) [Entitic vol] 9.0 fL Critically low 9.5-13.5 [facility] Comment on above: Performed By: #### C BC ####[place] [address] [place] [id number]. Flaquita Dennison PLT 396 103/ul Normal 150-450 [facility] [place] Comment on above: Performed By: #### C BC ####[place] [address]swwsdkg[address] [place] [id number]. Flaquita Dennison RBC 3.96 106/ul Critically low 4.20-5.40 The [facility] Comment on above: Performed By: #### C BC ####[place] [address] [place] [id number]. Flaquita Dennison WBC 8.2 103/ul Normal 4.0-11.0 [facility] [place] Comment on above: Performed By: #### C BC ####[place] [address]rv[address]avvj[address] [place] [id number] Dennison FREE T4on 11-23-2022 Free T4 [Mass/Vol] 0.71 ng/dL Critically low 0.76-1.46 Th e [place] Comment on above: Performed By: #### F T4 #### [facility] [address] [place], [place] [address] Dr. Flaquita Dennison LIPID PROFILEon 11-23-2022 CHOL-HDL RATIO NORM SEE BELOW Normal [facility] Comment on above: Result Comment: 3.3 - 4.4 LOW RISK 4.4 - 7.1 AVERAGE RISK 7.1 - 11.0 MODERATE RISK >11.0 HIGH RISK Performed By: #### L IPID, TSH, CMP ####[place] [address] [place] [address]Dr. Flaquita Dennison Cholesterol [Mass/Vol] 226 mg/dL Critically high <=200 [facility] Comment on above: Performed By: #### L IPID, TSH, CMP ####[place] [address]xb[address] [place] [id number]. Flaquita Dennison Cholesterol in HDL [Mass/Vol] 55 mg/dL Normal 40-60 [facility] Comment on above: Performed By: #### L IPID, TSH, CMP ####[place] [address]gsdfpvt[address] [place] [id number]. Flaquita Dennison Cholesterol in LDL [Mass/Vol] 133.8 mg/dL Normal [facility] Comment on above: Performed By: #### L IPID, TSH, CMP ####[place] L[address]ych[address] [place] [id number]. Flaquita Dennison Cholesterol.total/Choles terol in HDL [Mass ratio] 4.1 {ratio} Normal [facility] Comment on above: Performed By: #### L IPID, TSH, CMP ####[place] [address] [place] [id number]. Flaquita Dennison HDL NORMAL > or = 60 mg/dl - LOW CARDIOVASCULAR RISK <40 mg/dl - HIGH CARDIOVASCULAR RISK Normal [facility] Comment on above: Performed By: #### L IPID, TSH, CMP ####[place] [address] [place] [address]Dr. Flaquita Dennison LDL CALC NORMAL SEE BELOW Normal The [facility] Comment on above: Result Comment: <100 mg/dl OPTIMAL 100 - 129 mg/dl NEAR OR ABOVE OPTIMAL 130 - 159 mg/dl BORDERLINE HIGH 160 - 189 mg/dl HIGH >190 mg/dl VERY HIGH Performed By: #### L IPID, TSH, CMP ####[place] [address] [place] [address]Dr. Flaquita Dennison Triglyceride [Mass/Vol] 186 mg/dL Critically high <=150 [facility] [place] Comment on above: Performed By: #### L IPID, TSH, CMP ####[place] [address] [place] [address]Dr. Flaquita Dennison VLDL CALC 37.2 mg/dL Normal [facility] [place] Comment on above: Performed By: #### L IPID, TSH, CMP ####[place] [address] [place], [place] [address]Dr. Flaquita Dennison PROF 14(COMP METB)on 023 Albumin [Mass/Vol] 3.9 g/dL Normal 3.4-5.0 [facility] Comment on above: Performed By: #### L IPID, TSH, CMP ####[place] [address] [place], [place] [address]Dr. Flaquita Dennison Albumin/Globulin [Mass ratio] 1.0 {ratio} Normal [facility] [place] Comment on above: Performed By: #### L IPID, TSH, CMP ####[place] [address] [place] [address]Dr. Flaquita Dennison ALP [Catalytic activity/Vol] 124 U/L Critically high 46-116 [facility] [place] Comment on above: Performed By: #### L IPID, TSH, CMP ####[place] [address]cl[address] [place] [address]Dr. Flaquita Dennison ALT [Catalytic activity/Vol] 26 U/L Normal 14-59 [facility] [place] Comment on above: Performed By: #### L IPID, TSH, CMP ####[place] [address]pzu[address] [place] [id number]. Flaquita Dennison Anion gap [Moles/Vol] 14.1 mmol/L Normal Th [facility] Comment on above: Performed By: #### L IPID, TSH, CMP ####[place] [address] [place] [id number]. Flaquita Dennison AST [Catalytic activity/Vol] 22 U/L Normal 15-37 [facility] [place] Comment on above: Performed By: #### L IPID, TSH, CMP ####[place] [address] [place] [id number]. Flaquita Dennison Bilirubin [Mass/Vol] 0.2 mg/dL Normal 0.2-1.0 [facility] Comment on above: Performed By: #### L IPID, TSH, CMP ####[place] [address] [place] [address]Dr. Flaquita Dennison Calcium [Mass/Vol] 9.4 mg/dL Normal 8.5-10.1 [facility] Comment on above: Performed By: #### L IPID, TSH, CMP ####[place] [address]unty[address] [place] [address]Dr. Emilianaphoenix Dennison Chloride [Moles/Vol] 104 mmol/L Normal 98-107 [facility] [place] Comment on above: Performed By: #### L IPID, TSH, CMP ####[place] [address] [place] [address]Dr. Flaquita Dennison CO2 [Moles/Vol] 24.8 mmol/L Normal 21.0-32.0 The [facility] Comment on above: Performed By: #### L IPID, TSH, CMP ####[place] [address] [place] [address]Dr. Flaquita Dennison Creatinine [Mass/Vol] 1.03 mg/dL Critically high 0.55-1.02 [facility] Comment on above: Performed By: #### L IPID, TSH, CMP ####[place] [address] [place] [id number]. Flaquita Juma EGFR-AF ANGUILLAN >60 Normal >=60 The [facility] Comment on above: Performed By: #### L IPID, TSH, CMP ####[place] [address] [place] [address]Dr. Flaquita Dennison EGFR-NON AF ANGUILLAN 56 mL/min/1.73m2 Critically low >=60 [facility] [place] Comment on above: Performed By: #### L IPID, TSH, CMP ####[place] [address] [place] [address]Dr. Flaquita Dennison Globulin (S) [Mass/Vol] 4.1 g/dL Normal T [facility] Comment on above: Performed By: #### L IPID, TSH, CMP ####[place] [address] [place], [place] [address]Dr. Flaquita Dennison Glucose [Mass/Vol] 93 mg/dL Normal 74-106 [facility] Comment on above: Performed By: #### L IPID, TSH, CMP ####[place] [address] [place], [place] [address]Dr. Flaquita Dennison Potassium [Moles/Vol] 3.9 mmol/L Normal 3.5-5.1 [facility] [place] Comment on above: Performed By: #### L IPID, TSH, CMP ####[place] [address] [place], [place] [address]Dr. Flaquita Dennison Protein [Mass/Vol] 8.0 g/dL Normal 6.4-8.2 [facility] Comment on above: Performed By: #### L IPID, TSH, CMP ####[place] [address] [place] [address]Dr. Flaquita Dennison Sodium [Moles/Vol] 139 mmol/L Normal 136-145 [facility] Comment on above: Performed By: #### L IPID, TSH, CMP ####[place] [address] [place], [place] [address]Dr. Flaquita Dennison Urea nitrogen [Mass/Vol] 7.0 mg/dL Normal 7.0-18.0 [facility] [place] Comment on above: Performed By: #### L IPID, TSH, CMP ####[place] [address] [place], [place] [address]Oo. Flaquita Dennison Urea nitrogen/Creatinine [Mass ratio] 6.8 mg/mg Normal [facility] Comment on above: Performed By: #### L IPID, TSH, CMP ####[place] [address] [place], [place] [address]DtDre Dennison TSHon 11-23-2022 TSH 2.497 uIU/mL Normal 0.358-3.740 [facility] Comment on above: Performed By: #### L IPID, TSH, CMP ####[place] [address] [place], [place] [address]Do. Flaquita Dennison Patient Instructionson 11-14 [employer] Authentication Interface Message Text Dental extraction Instructions Biting on Gauze to Control Bleeding Bleeding may occur for some time after you extraction. In most cases this bleeding can be easily controlled by placing a piece of clean gauze DIRECTLY over the empty tooth socket. Then make sure that you bite firmly on this gauze for 30 to 60 minutes. Use the gauze we supplied to you in the bag. Wash your hands with soap and water before touching the gauze and placing it in your mouth. Place the used gauze from your mouth in a plastic bag and dispose the bag in a trash container. Make sure to wash your hands again when you are done touching the used gauze and before touching anything else. If a small amount of bleeding continues after 45 minutes then repeat these instructions. Sometimes biting a tea bag may be helpful in controlling minor bleeding. Very light bleeding for 2 days is not uncommon. If heavy bleeding is still persistent during normal clinic hours than call the Clinic where the extraction was done to speak with an oral surgeon. [facility] [phone]. HELPING THE HEALING PROCESS AND STOPPING THE BLEEDING FOR THE NEXT 24 HOURS (1 DAY) AFTER THE EXTRACTION: DO NOT RINSE YOUR MOUTH OR SPIT 2. DO NOT DRINK ANY HOT LIQUIDS SUCH SOUP, COFFEE, TEA, HOT CHOCOLATE AVOID HEAVY LIFTING, BENDING OR OTHER STENUOUS EXERCISES SLEEP WITH 2 PILLOWS OR IN A RECLINER CHAIR. KEEPING HEAD ELEVATED WILL REDUCE SWELLING. SUTURE WILL DISSOLVE IN 7-10 DAYS FOR THE NEXT 72 HOURS (3 DAYS) AFTER THE EXTRACTION: DO NOT SMOKE OR DRINK ALCOHOL DO NOT DRINK OR SUCK FROM A STRAW OR ANYTHING ELSEDO NOT DRINK. Stitches may have been placed to help healing. Your surgeon will advise you if you need to return to have them removed. TOOTH BRUSHING On the day of the extraction it is best to avoid brushing the teeth right next to the extraction site. On the next day you can start brushing ALL your teeth but in a gentle fashion. Remember to not rinse strongly because it may cause you to start bleeding from the extraction site again. SWELLING AND PAIN After the extraction you may feel some pain and experience some swelling. An ice pack of unopened bag of frozen peas of corn applied to the area should keep the swelling down. Put the ice pack on you face for 10 minutes and then leave it off for the next 20 minutes. You can repeat this patter as you feel is necessary for up to 24 hours after the extraction. To avoid injury, make sure that adults or children avoid biting or chewing on their lips of cheeks, which may be numb following an extraction. If your pain or swelling seems to be getting worse or you feel as though something is not right then call your dentist, as directed above. ANTIBIOTICS AND PAIN MEDICATION If antibiotics have been prescribed then you should take them as directed; this includes taking all the antibiotic (or liquid) pills that were prescribed. If you don't finish them completely a serious infection could result. You may have little of no discomfort after the extraction. If you have minor pain then you may want to take acetaminophen (Tylenol) or ibuprofen (Motrin). It is very important that before taking any medications that you read and follow the directions and warnings that come with these products so you know whether they are right for you and you situation. If you have any questions on whether these medications are right for you, first talk to your doctor or pharmacist before taking the medication. Your surgeon may have given you a written prescription for pain relief. It is important that if you decide to take it you read and understand all the precautions, warnings and directions that come with the medication. If you have any questions on whether the medication is right for you, first talk to your doctor or pharmacist before taking the medication. The pain medication prescription that your dentist gave you may contain a narcotic (like codeine). If so, most narcotic pain medications may upset your stomach. If so, then it is best to take them with food. The pain medication prescription that you were given can also make you drowsy or make you act strangely. If so, you should limit or stop activities such as driving a motor vehicle, operate machinery or other activities that require your full attention. EATING AND DRINKING A soft or liquid diet may be best for you after a difficult extraction. For a simpler extraction just make sure you do your chewing with those teeth that are NOT near the extraction site. POSTOPERATIVE INSTRUCTION AFTER SEDATION / GENERAL ANESTHESIA If you had general anesthesia of IV sedation, do not drive or operate machinery for 24 hours. A responsible adult should be with you for the remainder of the day. When starting oral intake, be sure to consume CLEAR LIQUIDS first. Clear liquids consist of water, Sprite, riley veronique, Jell-O, and non-pulp containing juices such as c (more content not included)... Normal [facility] MRI ANKLE LT WO CONon 2022 MRI ANKLE LT WO CON HISTORY: Left ankle pain since a fall in May 2022. Inability to bear weight on the ankle due to pain. MRI ANKLE LT WO CON: 10/20/2022 9:57 AM EDT COMPARISON: CT scan of the left foot and ankle obtained at [facility] 05/24/2022 and Radiographs left foot and ankle 08/10/2022. TECHNIQUE: Multiplanar, multisequence MRI images of the left ankle were obtained without contrast. FINDINGS: LIGAMENTS: The anterior talofibular ligament appears moderately thickened but of low signal intensity. The calcaneofibular ligament, posterior talofibular ligament, and distal tibiofibular ligaments appear within normal limits. The deltoid ligament complex appears within normal limits. The Lisfranc ligament complex is not included in the tgcdo-ej-ggar and cannot be evaluated on this MRI of the ankle. TENDONS: No significant tendinopathy, tendon tear, or tenosynovitis is seen. SINUS TARSI AND TARSAL TUNNEL: No space-occupying mass is seen in the tarsal tunnel or the sinus tarsi. BONES AND JOINTS: The bone marrow signal intensity is age appropriate. No unstable osteochondral defect of the tibiotalar joint is identified. There is subtle subchondral bone marrow edema involving the majority of the talar dome and also involving the subchondral bone of the calcaneus adjacent to the posterior subtalar joint. There is a small joint effusion of the posterior subtalar joint. There again appears to be a small nondisplaced intra-articular fracture involving the plantar and medial aspect of the base of the first metatarsal. There is also persistent evidence of a nondisplaced transverse fracture of the base of the second metatarsal. The previously seen fractures of the base of the third and fourth metatarsals on the prior CT scan appear to have healed. There is persistent evidence of a mildly comminuted, nondisplaced intra-articular fracture involving the cuboid with a small amount of patchy bone marrow edema in the region of the fracture. There is also persistent evidence of an oblique, minimally displaced fracture of the lateral malleolus without significant osseous fusion seen across the fracture. There is mild patchy bone marrow edema-like signal within the distal tibial metaphysis and plafond. PLANTAR FASCIA: There is no abnormal thickening or abnormal signal intensity of the plantar fascia and there is no surrounding soft tissue edema to suggest plantar fasciitis. SOFT TISSUES: No significant soft tissue swelling is seen. IMPRESSION: 1. There is persistent evidence of incompletely healed fractures of the cuboid, lateral malleolus and the base of the first metatarsal and second metatarsal. However, there appears to have been interval healing of the previously seen fractures of the bases of the third and fourth metatarsals. 2. Mild subchondral bone marrow edema involving the talar dome, distal tibia, and the calcaneus adjacent to the posterior subtalar joint may be secondary to disuse osteopenia, stress reactions, or less likely a manifestation of complex regional pain syndrome. 3. Probable remote grade 2 sprain and scarring of the anterior talofibular ligament. 4. No tendon abnormality is seen. Electronically authenticated by: TABBY AGUILERA Date: 2022-10-23 09:13 Normal [facility] XR DEXA BONE DENSITYon 10-20 XR DEXA BONE DENSITY EXAMINATION: XR DEXA BONE DENSITY, 10/20/2022 9:55 AM EDT HISTORY: Menopause present COMPARISON: None. TECHNIQUE: Dual-energy X-ray absorptiometry (DEXA) bone density study performed for the axial skeleton. FINDINGS: SPINE ANALYSIS: Average bone mineral density is 0.91 g/cm2. T-score (standard deviation relative to young adult mean): -2.3 . HIP ANALYSIS: Lowest bone mineral density is within the left femoral trochanter, 0.508 g/cm2. T-score (standard deviation relative to young adult mean): -3.0 . IMPRESSION: [employer] Classification: Osteoporosis - High Fracture Risk Electronically authenticated by: CHARLES URRUTIA Date: 2022-10-20 15:40 Normal [facility] Progress Noteson 07-18-2022 [employer] Authentication Interface Message Text ---- Attestation signed by Krystian Munoz DMD, MD at 07/22/2022 9:01 AM Teaching Physician Note: I saw and evaluated the patient. I personally obtained the montemayor and critical portions of the history and physical exam. I reviewed the resident's documentation and discussed the patient with the resident. I agree with the resident's medical decision making as documented in the resident's note. Krystian Munoz DMD, MD ---- [facility] PATIENT VISIT CHIEF COMPLAINT: Pain and [place] Teeth HISTORY OF PRESENT ILLNESS: 56 year old female with PMH significant for H/O seizures (~once a year; most recent was 06/21), hypothyroidism, and tobacco use presents to [facility] clinic as a referral from an outside provider for the evaluation and extraction of wisdom teeth #17, 32. Pt states that her lower wisdom teeth have cracked and been giving a lot of pain and that she can't eat or even brush her teeth. Pt endorses waxing and waning pain originating from the teeth listed on the referral that limits her ability to chew, function normally, and perform oral hygiene. PAST MEDICAL HISTORY: 56 yrs old White female No past medical history on file. Patient Active Problem List: Ankle fracture, bimalleolar, closed, left, initial encounter [S82.582A] COVID-19 virus infection [U07.1] Disorientation [R41.0] Disturbance of skin sensation [R20.9] Encephalopathy due to COVID-19 virus [U07.1, G93.49] Epileptic seizure (HCC) [G40.909] Headache [R51.9] Hypokalemia [E87.6] Migraine [G43.909] Raynaud disease [I73.00] Multiple fractures of foot, left, closed, initial encounter [S92.902A] Seizure (HCC) [R56.9] Tobacco abuse [Z72.0] Hypothyroidism [E03.9] MEDICATIONS: Current Outpatient Medications Medication Sig Dispense Refill gabapentin (NEURONTIN) 300 MG capsule 1 (one) capsule by mouth as directed, start with 1 at bedtime for... (REFER TO PRESCRIPTION NOTES). topiramate (TOPAMAX) 25 MG tablet topiramate 25 mg tablet take 1 tablet by mouth twice a day topiramate (TOPAMAX) 100 MG tablet sertraline (ZOLOFT) 100 MG tablet Take 100 mg by mouth daily. cetirizine (ZyrTEC) 10 MG tablet atorvastatin (LIPITOR) 10 MG tablet busPIRone (BUSPAR) 10 MG tablet take 1 tablet by mouth three times a day for anxiety QUEtiapine (SEROQUEL) 100 MG tablet levothyroxine (SYNTHROID) 25 MCG tablet Anoro Ellipta 62.5-25 MCG/ACT AEPB inhalation powder inhale 1 puff by mouth and INTO THE LUNGS once daily fluticasone (FLONASE) 50 mcg/act nasal inhaler No current facility-administer ed medications for this visit. ALLERGIES: Patient has no allergy information on record. SURGICAL HX: Unknown spinal surgery No complications to anesthesia SOCIAL HX: Cigarettes: 1 ppd since 18 yo ETOH: very occasional CLINICAL EXAMINATION Extraoral examination: No significant findings No s/s of infection, redness or tenderness to palpation No facial asymmetry or swelling No appreciable LAD No popping/clicking/cr epitus of TMJ b/l No tenderness to palpation of temporalis or masseter asymptomatic function Range of motion WNL CN V and VII intact Intraoral examination: No s/s of infection Moist, pink mucosa with erythema around dentition with plaque accumulation Oropharynx clear No pathological soft lesions appreciated Oral cancer screen negative Occlusion stable Oral hygiene fair Teeth #17 and 32 - grossly decayed and fractured, both TTP RADIOGRAPHIC INTERPRETATION: [employer] Film taken on 07/18/2022, and Retained in our clinic files Caries # 17 and # 32 Fractured # 17 and # 32 DIAGNOSIS: Caries TREATMENT: Exam, [employer] evaluated, and Awaiting Insurance authorization. PLAN: 56 year old female with PMH significant for H/O seizures (~once a year; most recent was 06/21), hypothyroidism, and tobacco use presents with symptomatic, grossly decayed and fractured teeth #17 and 32 that require extraction to prevent the spread of infection and future associated problems. The procedure will be performed under local anesthesia in clinic. Extractions #'s 17, 32 and with local anesthesia Cristobal Hargrove DMD Normal [facility] [employer] Authentication Interface Message Text Normal [facility] [employer] Authentication Interface Message Text Patient was identified by name and date of . ELAINA TALAMANTES, DONAL Normal [facility] ANION GAPon 05-26-2022 Anion gap [Moles/Vol] 11.0 mmol/L Normal 8.0-16.0 [facility] Comment on above: Result Comment: ANIO N GAP = Sodium -(Chloride + CO2) Performed By: #### T CARLOS NIXON, EGFR1, ANION, BMP #### [facility] [address] [place] [address] Anion Gapon 05-26-2022 Anion gap [Moles/Vol] 11.0 mmol/L 8.0 - 16.0 meq/L [facility] Comment on above: ANION GAP = Sodium - (Chloride + CO2) Performed at [facility] [address] [place] [address] BASIC METABOL PANELon 2021 Calcium [Mass/Vol] 10.0 mg/dL Normal 8.5-10.5 [facility] Comment on above: Performed By: #### T IBJessi, IRISA, EGFR1, ANION, BMP #### [facility] [address] [place] [address] Chloride [Moles/Vol] 104 mmol/L Normal 98-[address] [facility] Comment on above: Performed By: #### T IBC, IRNP, EGFR1, ANION, BMP #### [facility] [employer] [address] [place] [id number] CO2 [Moles/Vol] 24 mmol/L Normal 23-33 [facility] Comment on above: Performed By: #### T IBC, IRNP, EGFR1, ANION, BMP #### [facility] [employer] [facility] [address] [place] [address] Creatinine [Mass/Vol] 1.0 mg/dL Normal 0.4-1.2 [facility] Comment on above: Performed By: #### T IBC, IRNP, EGFR1, ANION, BMP #### [facility] [employer] [address] [place] [address] Glucose [Mass/Vol] 108 mg/dL Normal 70-108 [facility] Comment on above: Performed By: #### T IBC, IRNP, EGFR1, ANION, BMP #### [facility] [employer] [address] [place] [address] Potassium [Moles/Vol] 4.2 mmol/L Normal 3.5-5.2 [facility] Comment on above: Performed By: #### T IBC, IRNP, EGFR1, ANION, BMP #### [address] [address] Sodium [Moles/Vol] 139 mmol/L Normal 135-145 [facility] Comment on above: Performed By: #### T IBC, IRNP, EGFR1, ANION, BMP #### [facility] [employer] [address] [place] [address] Urea nitrogen [Mass/Vol] 11 mg/dL Normal 7-22 [facility] Comment on above: Performed By: #### T IBC, IRNP, EGFR1, ANION, BMP #### [facility] [employer] [address] [place] [address] Basic Metabolic Panelon 10-2 Calcium [Mass/Vol] 10.0 mg/dL 8.5 - 10. 5 mg/dL [facility] Comment on above: Performed at [facility] [address] [place] [address] Chloride [Moles/Vol] 104 mmol/L 98 - 11 1 meq/L [facility] CO2 [Moles/Vol] 24 mmol/L 23 - 33 meq/L [facility] Creatinine [Mass/Vol] 1 mg/dL 0.4 - 1.2 mg/dL [facility] Glucose [Mass/Vol] 108 mg/dL 70 - 108 mg/dL [facility] Potassium [Moles/Vol] 4.2 mmol/L 3.5 - 5.2 meq/L [facility] Sodium [Moles/Vol] 139 mmol/L 135 - 145 meq/L [facility] Urea nitrogen (BldV) [Mass/Vol] 11 mg/dL 7 - 22 mg/dL [facility] GFR, ESTIMATEDon 05-26-2022 GFR/1.73 sq M.predicted MDRD (S/P/Bld) [Vol rate/Area] mL/min/{1.73_m2} Normal >60 [facility] Comment on above: Result Comment: Arcelia atric calculator link https://www.kidney.org/professionals/kdoqi/gfr_calculatorped Effective May 02, 2022 These results are not intended for use in patients <18 years of age. eGFR results are calculated without a race factor using the 2020 CKD-EPI equation. Careful clinical correlation is recommended, particularly when comparing to results calculated using previous equations. The CKD-EPI equation is less accurate in patients with extremes of muscle mass, extra-renal metabolism of creatinine, excessive creatine ingestion, or following therapy that affects renal tubular secretion. Performed By: #### T IBC, IRNP, EGFR1, ANION, BMP #### [employer] [address] [place] [address] Glomerular Filtration Rate, Estimatedon 05-26-2022 GFR/1.73 sq M.predicted MDRD (S/P/Bld) [Vol rate/Area] - PINF [facility] Comment on above: Pediatric calculator link https://www.kidney.org/professionals/kdoqi/gfr_calculatorped Effective May 02, 2022 These results are not intended for use in patients <18 years of age. eGFR results are calculated without a race factor using the 2020 CKD-EPI equation. Careful clinical correlation is recommended, particularly when comparing to results calculated using previous equations. The CKD-EPI equation is less accurate in patients with extremes of muscle mass, extra-renal metabolism of creatinine, excessive creatine ingestion, or following therapy that affects renal tubular secretion. Performed at [facility] [address] [place] [address] IRONon 05-26-2022 Iron [Mass/Vol] 30 ug/dL Low 50-170 [facility] Comment on above: Performed By: #### T IBC, IRNP, EGFR1, ANION, BMP #### [facility] [address] [place] [address] IRON BINDING CAPACITYon 05-01 IRON BINDING CAPACITY 240 ug/dL Normal 171-450 [facility] Comment on above: Performed By: #### T IBC, IRNP, EGFR1, ANION, BMP #### [place] [address] Ironon 05-26-2022 Interpretation and review of laboratory results Abnormal [facility] [facility] Iron [Mass/Vol] 30 ug/dL Low 50 - 170 ug/dL [facility] Comment on above: Performed at [facility] [employer] [facility] [address] [place] [address] Iron Binding Capacityon 05-01 TIBC 240 ug/dL 171 - 450 ug/dL [facility] Comment on above: Performed at [facility] ion [facility] [address] [place] [address] No Panel Informationon 05-26 [employer] SEC[facility] Communications[facility] CBCon 05-25-2022 Erythrocyte distribution width (RBC) [Ratio] 12.7 % 11.5 - 14.5 % [employer] [facility] Erythrocyte distribution width (RBC) [Ratio] 45.2 fL High 35.0 - 45.0 fL [employer] [facility] Hematocrit (Bld) [Volume fraction] 32.6 % Low 37.0 - 47.0 % [facility] Hemoglobin (Bld) [Mass/Vol] 10.7 g/dL Low [employer] SEC[facility] Communications[facility] Interpretation and review of laboratory results Abnormal [facility] MCH (RBC) [Entitic mass] 32.0 pg 26. 0 - 33.0 pg [facility] MCHC (RBC) [Mass/Vol] 32.8 g/dL [facility] MCV (RBC) [Entitic vol] 97.6 fL 81.0 - 99.0 fL [facility] Platelet mean volume (Bld) [Entitic vol] 10.0 fL 9.4 - 12.4 fL [facility] Comment on above: Performed at [facility] [address] [place] [address] Platelets (Bld) [#/Vol] 278 10*3/uL [facility] RBC (Bld) [#/Vol] 3.34 10*6/uL Low [facility] WBC (Bld) [#/Vol] 6.6 10*3/uL [facility] TOPIRAMATE (TOPAMAX) LEVELon 05-25-2022 TOPIRAMATE (TOPAMAX) LEVEL 6.1 ug/mL Normal 5.0-20.0 [facility] Comment on above: Result Comment: INTE RPRETIVE INFORMATION: Topiramate Therapeutic range: 5.0-20.0 ug/mL Toxic: Not well established Pharmacokinetics varies widely, particularly with co-medications, age, and/or compromised renal function. Adverse effects may include somnolence, fatigue, and dizziness. Performed By: [employer] [address] [place] [address] Travograph Operator: Heraclio Lester MD, PhD Performed By: #### T OPI2 #### [facility] [address] [facility] [address] Topiramate levelon Topiramate Lvl 6.1 ug/mL 5.0 - 20.0 ug/mL [facility] Comment on above: INTERPRETIVE INFORMA TION: Topiramate Therapeutic range: 5.0-20.0 ug/mL Toxic: Not well established Pharmacokinetics varies widely, particularly with co-medications, age, and/or compromised renal function. Adverse effects may include somnolence, fatigue, and dizziness. Performed By: [employer] [address] [place] [address] Travograph Operator: Heraclio Lester MD, PhD [facility] ANION GAPon 05-24-2022 Anion gap [Moles/Vol] 12.0 mmol/L Normal 8.0-16.0 [facility] Comment on above: Result Comment: ANIO N GAP = Sodium -(Chloride + CO2) Performed By: #### C BCWD, EGFR1, ANION, CMPX #### [facility] [address] [place] [address] Anion Gapon 05-24-2022 Anion gap [Moles/Vol] 16.0 mmol/L 8.0 - 16.0 meq/L [facility] Comment on above: ANION GAP = Sodium - (Chloride + CO2) Performed at [facility] [address] [place] [address] Anion gap [Moles/Vol] 12.0 mmol/L 8.0 - 16.0 meq/L [facility] Comment on above: ANION GAP = Sodium - (Chloride + CO2) Performed at [facility] [address] [place] [address] Basic Metabolic Panel w/ Ref maria elena to MGon 05-24-2022 Calcium [Mass/Vol] 9.4 mg/dL 8.5 - 10. 5 mg/dL [facility] Comment on above: Performed at [facility] ion [facility] [address] [place] [address] Chloride [Moles/Vol] 98 mmol/L 98 - 11 1 meq/L [facility]ITAL[facility] CommunicationsBL[facility] CO2 [Moles/Vol] 20 mmol/L Low 23 - 33 meq/L [facility]ITAL[facility] CommunicationsBLANCH[facility] Creatinine [Mass/Vol] 1 mg/dL 0.4 - 1.2 mg/dL [facility]ITAL[facility] CommunicationsBLANCH[facility] Glucose [Mass/Vol] 101 mg/dL 70 - 108 mg/dL [facility] Interpretation and review of laboratory results Abnormal [facility]ITAL[facility] CommunicationsBLANCHARD [facility] Potassium [Moles/Vol] 3.9 mmol/L 3.5 - 5.2 meq/L [facility] Comment on above: Low level specimen h emolysis is present as indicated by the interference level index on the Katie analyzer. The reported K+ level may be falsely increased. If clinically warranted, recollection of the specimen is suggested. Sodium [Moles/Vol] 134 mmol/L Low 135 - 145 meq/L [facility] Urea nitrogen (BldV) [Mass/Vol] 15 mg/dL 7 - 22 mg/dL [facility] CBC WITH DIFFERENTIALon 10-2 -2021 ABS BASOPHILS 0.0 thou/mm3 Normal 0.0-0.1 [facility] Comment on above: Performed By: #### C BCWD, EGFR1, ANION, CMPX #### [facility] [address] [place] [address] ABS EOSINOPHILS 0.1 thou/mm3 Normal 0.0-0.4 [facility] Comment on above: Performed By: #### C BCWD, EGFR1, ANION, CMPX #### [facility] [address] [place] [address] ABS IMMATURE GRANS (IG) 0.03 thou/mm3 Normal 0.00-0.07 [facility] Comment on above: Performed By: #### C BCWD, EGFR1, ANION, CMPX #### [facility] [address] [place] [address] ABS LYMPHOCYTES 1.4 thou/mm3 Normal 1.0-4.8 [facility] Comment on above: Performed By: #### C BCWD, EGFR1, ANION, CMPX #### [facility] [address] [place] [address] ABS MONOCYTES 0.5 thou/mm3 Normal 0.4-1.3 [facility] Comment on above: Performed By: #### C BCWD, EGFR1, ANION, CMPX #### [facility] [address] [place] [address] ABS NEUTROPHILS 5.7 thou/mm3 Normal 1.8-7.7 [facility] Comment on above: Performed By: #### C BCWD, EGFR1, ANION, CMPX #### [facility] [address] [place] [address] Basophils/100 WBC (Bld) 0.3 % Normal [facility] Comment on above: Performed By: #### C BCWD, EGFR1, ANION, CMPX #### [facility] [address] [place] [address] Eosinophils/100 WBC (Bld) 0.9 % Normal [facility] Comment on above: Performed By: #### C BCWD, EGFR1, ANION, CMPX #### [place] [address] Erythrocyte distribution width (RBC) [Ratio] 12.8 % Normal 11.5-14.5 [facility] Comment on above: Performed By: #### C BCWD, EGFR1, ANION, CMPX #### [place] [address] Hematocrit (Bld) [Volume fraction] 34.4 % Low 37.0-47.0 [facility] Comment on above: Performed By: #### C BCWD, EGFR1, ANION, CMPX #### [place] [address] Hemoglobin (Bld) [Mass/Vol] 11.3 g/dL Low 12.0-16.0 [facility] Comment on above: Performed By: #### C BCWD, EGFR1, ANION, CMPX #### [place] [address] IMMATURE GRANS (IG) 0.4 % Normal [facility] Comment on above: Performed By: #### C BCWD, EGFR1, ANION, CMPX #### [place] [address] Lymphocytes/100 WBC (Bld) 17.8 % Normal [facility] Comment on above: Performed By: #### C BCWD, EGFR1, ANION, CMPX #### [place] [address] MCH (RBC) [Entitic mass] 31.8 pg Normal 26.0-33.0 [facility] Comment on above: Performed By: #### C BCWD, EGFR1, ANION, CMPX #### [place] [id number] MCHC (RBC) [Mass/Vol] 32.8 g/dL Normal 32.2-35.5 [facility] Comment on above: Performed By: #### C BCWD, EGFR1, ANION, CMPX #### [place] [address] MCV (RBC) [Entitic vol] 96.9 fL Normal 81.0-99.0 [facility] Comment on above: Performed By: #### C BCWD, EGFR1, ANION, CMPX #### [address] [address] Monocytes/100 WBC (Bld) 7.0 % Normal [facility] Comment on above: Performed By: #### C BCWD, EGFR1, ANION, CMPX #### [address] [address] Neutrophils/100 WBC (Bld) 73.6 % Normal [facility] Comment on above: Performed By: #### C BCWD, EGFR1, ANION, CMPX #### [address] [address] NRBC 0 /100 wbc Normal [facility] Comment on above: Performed By: #### C BCWD, EGFR1, ANION, CMPX #### [address] [address] PLATELET 311 thou/mm3 Normal 130-400 [facility] Comment on above: Performed By: #### C BCWD, EGFR1, ANION, CMPX #### [address] [address] Platelet mean volume (Bld) [Entitic vol] 9.7 fL Normal 9.4-12.4 [facility] Comment on above: Performed By: #### C BCWD, EGFR1, ANION, CMPX #### [address] [address] RBC 3.55 mill/mm3 Low 4.20-5.40 [facility] Comment on above: Performed By: #### C BCWD, EGFR1, ANION, CMPX #### [address] [address] RDW-SD 45.6 fL High 35.0-45.0 [facility] Comment on above: Performed By: #### C BCWD, EGFR1, ANION, CMPX #### [address] [address] WBC 7.8 thou/mm3 Normal 4.8-10.8 [facility] Comment on above: Performed By: #### C BCWD, EGFR1, ANION, CMPX #### [facility] [address] [place] [address] CBC with Auto Differentialon 05-24-2022 Basophils (Bld) [#/Vol] 0.0 10*3/uL [facility] Basophils/100 WBC (Bld) 0.3 % [facility] Eosinophils Absolute 0.1 [facility] Eosinophils/100 WBC (Bld) 0.9 % [facility] Erythrocyte distribution width (RBC) [Ratio] 12.8 % 11.5 - 14.5 % [facility] Erythrocyte distribution width (RBC) [Ratio] 45.6 fL High 35.0 - 45.0 fL [facility] Hematocrit (Bld) [Volume fraction] 34.4 % Low 37.0 - 47.0 % [facility] Hemoglobin (Bld) [Mass/Vol] 11.3 g/dL Low [facility] Immature Grans (Abs) 0.03 [facility] Immature granulocytes/100 WBC (Bld) 0.4 % [facility] Interpretation and review of laboratory results Abnormal [facility] Lymphocytes Absolute 1.4 [facility] Lymphocytes/100 WBC (Bld) 17.8 % [facility] MCH (RBC) [Entitic mass] 31.8 pg 26. 0 - 33.0 pg [facility] MCHC (RBC) [Mass/Vol] 32.8 g/dL [facility] MCV (RBC) [Entitic vol] 96.9 fL 81.0 - 99.0 fL [facility] Monocytes Absolute 0.5 [facility] Monocytes/100 WBC (Bld) 7 % [facility] nRBC 0 /100 wbc [facility] Comment on above: Performed at [facility] [address] [place] [address] Platelet mean volume (Bld) [Entitic vol] 9.7 fL 9.4 - 12.4 fL [facility] Platelets (Bld) [#/Vol] 311 10*3/uL [facility] RBC (Bld) [#/Vol] 3.55 10*6/uL Low [facility] Segmented neutrophils/100 WBC (Bld) 73.6 % [facility] Segs Absolute 5.7 [facility] WBC (Bld) [#/Vol] 7.8 10*3/uL [facility] CMPon 05-24-2022 Albumin [Mass/Vol] 4.4 g/dL 3.5 - 5.2 g/dL [facility] Albumin/Globulin [Mass ratio] 1.6 {ratio} 1.0 - 2.5 [facility] ALP (Bld) [Catalytic activity/Vol] 104 U/L 35 - 104 U/L [facility] ALT [Catalytic activity/Vol] 13 U/L 5 - 33 U/L [facility] Anion gap [Moles/Vol] 15 mmol/L 9 - 17 mmol/L [facility] AST [Catalytic activity/Vol] 21 U/L NINF - 32 U/L [facility] Bilirubin [Mass/Vol] 0.2 mg/dL Low 0.3 - 1 .2 mg/dL [facility] Calcium [Mass/Vol] 10.1 mg/dL 8.6 - 10. 4 mg/dL [facility] Chloride [Moles/Vol] 102 mmol/L 98 - 10 7 mmol/L [facility] CO2 [Moles/Vol] 19 mmol/L Low 20 - 31 mmol/L [facility] Creatinine [Mass/Vol] 0.99 mg/dL High 0.50 - 0.90 mg/dL [facility] GFR/1.73 sq M.predicted MDRD (S/P/Bld) [Vol rate/Area] - PINF [facility] Comment on above: Effective May 02, 2022 These results are not intended for use [...] following therapy that affects renal tubular secretion. Glucose [Mass/Vol] 106 mg/dL High 70 - 99 mg/dL [facility] Interpretation and review of laboratory results Abnormal [facility] Potassium [Moles/Vol] 3.5 mmol/L Low 3.7 - 5.3 mmol/L [facility] Protein [Mass/Vol] 7.1 g/dL 6.4 - 8.3 g/dL [facility] Sodium [Moles/Vol] 136 mmol/L 135 - 144 mmol/L [facility] Urea nitrogen (BldV) [Mass/Vol] 12 mg/dL 6 - 20 mg/dL [facility] Urea nitrogen/Creatinine (Bld) [Mass ratio] 12 9 - 20 [facility] COMP. METABOLIC PANELon 05-01 Albumin [Mass/Vol] 4.5 g/dL Normal 3.5-5.1 [facility] Comment on above: Performed By: #### C BCWD, EGFR1, ANION, CMPX #### [facility] [employer] [facility] [address] [place] [address] ALP [Catalytic activity/Vol] 112 U/L Normal 38-126 [facility] Comment on above: Performed By: #### C BCWD, EGFR1, ANION, CMPX #### [facility] [address] [place] [address] ALT [Catalytic activity/Vol] 12 U/L Normal 11-66 [facility] Comment on above: Performed By: #### C BCWD, EGFR1, ANION, CMPX #### [facility] [address] [place] [address] AST [Catalytic activity/Vol] 20 U/L Normal 5-40 [facility] Comment on above: Performed By: #### C BCWD, EGFR1, ANION, CMPX #### [facility] [employer] [facility] [address] [place] [address] Bilirubin [Mass/Vol] 0.7 mg/dL Normal 0.3-1.[address] [facility] Comment on above: Performed By: #### C BCWD, EGFR1, ANION, CMPX #### [facility] [address] [place] [address] Calcium [Mass/Vol] 10.1 mg/dL Normal 8.5-10.5 [facility] Comment on above: Performed By: #### C BCWD, EGFR1, ANION, CMPX #### [facility] [address] [place] [address] Chloride [Moles/Vol] 100 mmol/L Normal 98-[address] [facility] Comment on above: Performed By: #### C BCWD, EGFR1, ANION, CMPX #### [facility] [address] [place] [address] CO2 [Moles/Vol] 24 mmol/L Normal 23-33 [facility] Comment on above: Performed By: #### C BCWD, EGFR1, ANION, CMPX #### [facility] [address] [place] [address] Creatinine [Mass/Vol] 1.0 mg/dL Normal 0.4-1.2 [facility] Comment on above: Performed By: #### C BCWD, EGFR1, ANION, CMPX #### [facility] [address] [place] [address] Glucose [Mass/Vol] 100 mg/dL Normal 70-108 [facility] Comment on above: Performed By: #### C BCWD, EGFR1, ANION, CMPX #### [facility] [address] [place] [address] POTASSIUM WITH REFLEX MG 5.3 meq/L High 3.5-5.2 [facility] Comment on above: Performed By: #### C BCWD, EGFR1, ANION, CMPX #### [facility] [address] [place] [address] Protein [Mass/Vol] 6.9 g/dL Normal 6.1-8.0 [facility] Comment on above: Performed By: #### C BCWD, EGFR1, ANION, CMPX #### [facility] [address] [place] [address] Sodium [Moles/Vol] 136 mmol/L Normal 135-145 [facility] Comment on above: Performed By: #### C BCWD, EGFR1, ANION, CMPX #### [facility] [address] [place] [address] Urea nitrogen [Mass/Vol] 13 mg/dL Normal 7-22 [facility] Comment on above: Performed By: #### C BCWD, EGFR1, ANION, CMPX #### [facility] [address] [place] [address] CT Head W/O Contraston 05-24 No acute intracranial abnormality. [facility] EXAMINATION: CT OF THE HEAD WITHOUT CONTRAST 05/24/2022 12:03 am TECHNIQUE: CT of the head was performed without the administration of intravenous contrast. Automated exposure control, iterative reconstruction, and/or weight based adjustment of the mA/kV was utilized to reduce the radiation dose to as low as reasonably achievable. COMPARISON: 06/16/2021 MRI brain HISTORY: ORDERING SYSTEM PROVIDED HISTORY: seizure TECHNOLOGIST PROVIDED HISTORY: seizure Decision Support Exception - unselect if not a suspected or confirmed emergency medical condition->Emergenc y Medical Condition ([place]) Is the patient ?->No FINDINGS: BRAIN/VENTRICLES: There is no acute intracranial hemorrhage, mass effect or midline shift. No abnormal extra-axial fluid collection. The kirby-white differentiation is maintained without evidence of an acute infarct. There is no evidence of hydrocephalus. ORBITS: The visualized portion of the orbits demonstrate no acute abnormality. SINUSES: Left lateral ethmoid air-fluid level suggestive of acute bacterial sinusitis. Mastoids grossly clear SOFT TISSUES/SKULL: No acute abnormality of the visualized skull or soft tissues. [facility] Skyler Hilliard MD - 05/24/2022 EXAMINATION: CT OF THE HEAD WITHOUT CONTRAST 05/24/2022 12:03 am TECHNIQUE: CT of the head was performed without the administration of intravenous contrast. Automated exposure control, iterative reconstruction, and/or weight based adjustment of the mA/kV was utilized to reduce the radiation dose to as low as reasonably achievable. COMPARISON: 06/16/2021 MRI brain HISTORY: ORDERING SYSTEM PROVIDED HISTORY: seizure TECHNOLOGIST PROVIDED HISTORY: seizure Decision Support Exception - unselect if not a suspected or confirmed emergency medical condition->Emergenc y Medical Condition ([place]) Is the patient ?->No FINDINGS: BRAIN/VENTRICLES: There is no acute intracranial hemorrhage, mass effect or midline shift. No abnormal extra-axial fluid collection. The kirby-white differentiation is maintained without evidence of an acute infarct. There is no evidence of hydrocephalus. ORBITS: The visualized portion of the orbits demonstrate no acute abnormality. SINUSES: Left lateral ethmoid air-fluid level suggestive of acute bacterial sinusitis. Mastoids grossly clear SOFT TISSUES/SKULL: No acute abnormality of the visualized skull or soft tissues. IMPRESSION: No acute intracranial abnormality. [id number] Work Phone: Radiology Study observation (narrative) [employer] Work Phone: CT Head W/O ContrastOrdered By: Skyler Hilliard on 05-24-2022 [facility] [employer] Work Phone: Comprehensive Metabolic Pane l w/ Reflex to MGon 05-24-2022 Albumin [Mass/Vol] 4.5 g/dL 3.5 - 5.1 g/dL [facility] [employer] ALP (Bld) [Catalytic activity/Vol] 112 U/L 38 - 126 U/L [facility] ALT [Catalytic activity/Vol] 12 U/L 11 - 66 U/L [facility] Comment on above: Performed at [facility] [address] [place] [address] AST [Catalytic activity/Vol] 20 U/L 5 - 40 U/L [facility] Bilirubin [Mass/Vol] 0.7 mg/dL 0.3 - 1 .2 mg/dL [facility] [employer] Calcium [Mass/Vol] 10.1 mg/dL 8.5 - 10. 5 mg/dL [facility] [employer] Chloride [Moles/Vol] 100 mmol/L 98 - 11 1 meq/L [facility] CO2 [Moles/Vol] 24 mmol/L 23 - 33 meq/L [facility] [employer] Creatinine [Mass/Vol] 1 mg/dL 0.4 - 1.2 mg/dL [facility] [employer] Glucose [Mass/Vol] 100 mg/dL 70 - 108 mg/dL [facility] Interpretation and review of laboratory results Abnormal [facility] [employer] Potassium [Moles/Vol] 5.3 mmol/L High 3.5 - 5.2 meq/L [facility] [employer] Protein [Mass/Vol] 6.9 g/dL 6.1 - 8.0 g/dL [facility] Sodium [Moles/Vol] 136 mmol/L 135 - 145 meq/L [facility] Urea nitrogen (BldV) [Mass/Vol] 13 mg/dL 7 - 22 mg/dL [facility] [employer] EEGon 05-24-2022 Evelio Sullivan MD 05/24/2022 3:26 PM Date: 05/24/2022 Referring physician: Dhruv Carrillo MD Indication Patient aged 56 y with encephalopathy. EEG done to assess for epileptiform activity. Introduction This routine 20-minute EEG was recorded using the International 10-20 System on a [employer] workstation at 256 samples/s. Automated spike and seizure detection algorithms were applied. Description During the maximal alert state, a poorly-regulated, symmetric, and reactive 5-6 Hz posterior dominant rhythm was seen. No consistent focal slowing or interhemispheric asymmetry was noted. Stage I and stage II sleep were not observed. There were no interictal epileptiform discharges or electrographic seizures. Activations Hyperventilation was not performed. Intermittent photic stimulation was performed and demonstrated no posterior driving response. Impression Abnormal awake EEG. The slowing mentioned above suggests mild-moderate non specific encephalopathy. No epileptiform discharges were identified. Please note the absence of such activity on this record cannot conclusively rule out an epileptic disorder. If such is still clinically suspected, a repeat study with sleep deprivation and/or prolonged sampling may be helpful. Evelio Sullivan MD Epilepsy Board Certified. Neurology Board Certified. Electronically Signed [facility] STR MUSE EEGOrdered By: Evelio shaw on 05-24-2022 [employer] Work Phone: EKG 12 leadOrdered By: Candace Lopez on 05-24-2022 Atrial Rate 98 BPM [employer] Work Phone: P Savage 33 degrees [employer] Phone: P-R Interval 142 ms [employer] Work Phone: Q-T Interval 376 ms KENNEDY [employer] Work Phone: QRS Duration 84 ms KENNEDY [employer] Phone: QTc Calculation (Bazett) 480 ms KENNEDY [employer] Phone: R Savage 11 degrees KENNEDY [employer] Work Phone: T Savage 14 degrees KENNEDY [employer] Work Phone: Ventricular Rate 98 BPM KENNEDY ADDISON [employer] Work Phone: KENNEDY [employer] Phone: EKG 12 leadon 05-24-2022 Normal sinus rhythm Septal infarct , age undetermined Abnormal ECG No previous ECGs available Confirmed by EDDY LOPEZ ([id number]) on 05/24/2022 8:07:58 PM [facility] Eddy Soriano MD - 05/24/2022 Normal sinus rhythm Septal infarct , age undetermined Abnormal ECG No previous ECGs available Confirmed by EDDY LOPEZ ([id number]) on 05/24/2022 8:07:58 PM KENNEDY [employer] Phone: EKG 12-LEADon 05-24-2022 EKG 12-LEAD 98 98 142 [phone] Normal sinus rhythm Septal infarct , age undetermined Abnormal ECG No previous ECGs available Confirmed by EDDY LOPEZ ([id number]) on 05/24/2022 8:07:58 PM [email or web address]?PatientID =[id number]&Date=&Time=13%3a3 1%3a52%3a00&TestTyp e=ECG&Site=3&Output Type=PDF&Ext=PDF Normal [facility] GFR, ESTIMATEDon 05-24-2022 GFR/1.73 sq M.predicted MDRD (S/P/Bld) [Vol rate/Area] mL/min/{1.73_m2} Normal >60 [facility] Comment on above: Result Comment: Arcelia atric calculator link [email or web address].[email or web address].org/professionals/kdoqi/gfr_[email or web address] Effective May 02, 2022 These results are not intended for use in patients <18 years of age. eGFR results are calculated without a race factor using the 2020 CKD-EPI equation. Careful clinical correlation is recommended, particularly when comparing to results calculated using previous equations. The CKD-EPI equation is less accurate in patients with extremes of muscle mass, extra-renal metabolism of creatinine, excessive creatine ingestion, or following therapy that affects renal tubular secretion. Performed By: #### C BCWD, EGFR1, ANION, CMPX #### [facility] [address] [place] [address] Glomerular Filtration Rate, Estimatedon 05-24-2022 GFR/1.73 sq M.predicted MDRD (S/P/Bld) [Vol rate/Area] - [facility] [employer] Comment on above: Pediatric calculator link [email or web address]://www.[email or web address].org/professionals/kdoqi/gfr_calculatorped Effective May 02, 2022 These results are not intended for use in patients <18 years of age. eGFR results are calculated without a race factor using the 2020 CKD-EPI equation. Careful clinical correlation is recommended, particularly when comparing to results calculated using previous equations. The CKD-EPI equation is less accurate in patients with extremes of muscle mass, extra-renal metabolism of creatinine, excessive creatine ingestion, or following therapy that affects renal tubular secretion. Performed at [facility] [address] [place] [address] GFR/1.73 sq M.predicted MDRD (S/P/Bld) [Vol rate/Area] - [facility] [employer] Comment on above: Pediatric calculator link [email or web address]://www.kidney.org/professionals/kdoqi/gfr_calculatorped Effective May 02, 2022 These results are not intended for use in patients <18 years of age. eGFR results are calculated without a race factor using the 2020 CKD-EPI equation. Careful clinical correlation is recommended, particularly when comparing to results calculated using previous equations. The CKD-EPI equation is less accurate in patients with extremes of muscle mass, extra-renal metabolism of creatinine, excessive creatine ingestion, or following therapy that affects renal tubular secretion. Performed at [facility] [address] [place] [id number] No Panel Informationon 05-24 [facility] XR ANKLE LEFT (MIN 3 VIEWS)o n 05-24-2022 Fracture of the lateral aspect of the base of the lateral malleolus of left fibula without significant displacement. Moderate to marked soft tissue swelling at the lateral aspect of the left ankle joint. [facility] EXAMINATION: THREE X-RAY VIEWS OF THE LEFT ANKLE 05/23/2022 10:19 pm COMPARISON: None. HISTORY: ORDERING SYSTEM PROVIDED HISTORY: injury TECHNOLOGIST PROVIDED HISTORY: Injury FINDINGS: There is a nondisplaced fracture in the lateral aspect of the base of the lateral malleolus of left fibula with small gap at the fractured lateral cortex. Evidence of moderate to marked soft tissue swelling at the lateral aspect of lateral malleolus of the left ankle. No additional fracture or osseous malalignment at the left ankle. Ankle mortise remains intact. Distal tibiofibular syndesmosis appears to be grossly intact. No definable abnormality involving left talus and calcaneus bone. [facility] Man Levi MD - 05/24/2022 EXAMINATION: THREE X-RAY VIEWS OF THE LEFT ANKLE 05/23/2022 10:19 pm COMPARISON: None. HISTORY: ORDERING SYSTEM PROVIDED HISTORY: injury TECHNOLOGIST PROVIDED HISTORY: Injury FINDINGS: There is a nondisplaced fracture in the lateral aspect of the base of the lateral malleolus of left fibula with small gap at the fractured lateral cortex. Evidence of moderate to marked soft tissue swelling at the lateral aspect of lateral malleolus of the left ankle. No additional fracture or osseous malalignment at the left ankle. Ankle mortise remains intact. Distal tibiofibular syndesmosis appears to be grossly intact. No definable abnormality involving left talus and calcaneus bone. IMPRESSION: Fracture of the lateral aspect of the base of the lateral malleolus of left fibula without significant displacement. Moderate to marked soft tissue swelling at the lateral aspect of the left ankle joint. [facility] [facility] Work Phone: [facility] Work Phone: XR FOOT LEFT (MIN 3 VIEWS)on 05-24-2022 Evidence of displaced comminuted fracture at the medial aspect of base of the left 1st metatarsal bone. Transverse fracture through the base of the 2nd metatarsal bones. Evidence of comminuted fractures in the base of the 3rd metatarsal bone. There is no obvious subluxation or dislocation of the base of the metatarsal bones. RECOMMENDATION: For further evaluation, CT scan of left foot, suggested. [facility] EXAMINATION: THREE XRAY VIEWS OF THE LEFT FOOT 05/23/2022 10:19 pm COMPARISON: None HISTORY: ORDERING SYSTEM PROVIDED HISTORY: injury TECHNOLOGIST PROVIDED HISTORY: injury FINDINGS: At the lateral aspect of base of the lateral malleolus of left fibula there is focal fracture with minimal gap at the lateral cortex. There is focal displaced comminuted fracture at the medial aspect of base of the left 1st metatarsal bone with adjacent medial soft tissue swelling. There is intra-articular extension of the fracture at the base of the 1st metatarsal bone. This study also demonstrates transverse fracture at the base of the 2nd metatarsal bone, 10 mm distal to the proximal articular surface. Evidence of mild comminuted fracture in the medial portion of the base of the 3rd metatarsal bone. There is no obvious subluxation or dislocation of the base of the metatarsal bone. In the rest of left foot, there is no additional fracture identified. [facility] Man Levi MD - 05/24/2022 EXAMINATION: THREE XRAY VIEWS OF THE LEFT FOOT 05/23/2022 10:19 pm COMPARISON: None HISTORY: ORDERING SYSTEM PROVIDED HISTORY: injury TECHNOLOGIST PROVIDED HISTORY: injury FINDINGS: At the lateral aspect of base of the lateral malleolus of left fibula there is focal fracture with minimal gap at the lateral cortex. There is focal displaced comminuted fracture at the medial aspect of base of the left 1st metatarsal bone with adjacent medial soft tissue swelling. There is intra-articular extension of the fracture at the base of the 1st metatarsal bone. This study also demonstrates transverse fracture at the base of the 2nd metatarsal bone, 10 mm distal to the proximal articular surface. Evidence of mild comminuted fracture in the medial portion of the base of the 3rd metatarsal bone. There is no obvious subluxation or dislocation of the base of the metatarsal bone. In the rest of left foot, there is no additional fracture identified. IMPRESSION: Evidence of displaced comminuted fracture at the medial aspect of base of the left 1st metatarsal bone. Transverse fracture through the base of the 2nd metatarsal bones. Evidence of comminuted fractures in the base of the 3rd metatarsal bone. There is no obvious subluxation or dislocation of the base of the metatarsal bones. RECOMMENDATION: For further evaluation, CT scan of left foot, suggested. [facility] Work Phone: XR FOOT LEFT (MIN 3 VIEWS)Or dered By: Man Levi on 05-24-2022 [facility] Work Phone: CBC with Auto Differentialon 05-23-2022 Absolute Eos # 0.11 [place] [facility] Absolute Immature Granulocyte [facility] Absolute Lymph # 2.56 [facility] Absolute Newberry # 0.36 [facility] RS [facility] Basophils Absolute [place] [facility] Basophils/100 WBC (Bld) 0 % 0 - 2 % B ON [facility] Eosinophils/100 WBC (Bld) 2 % 1 - 4 % [facility] Hematocrit (Bld) [Volume fraction] 31.6 % Low 36.3 - 47.1 % [facility] Hemoglobin (Bld) [Mass/Vol] 10.7 g/dL Low 11.9 - 15.1 g/dL [facility] Immature granulocytes/100 WBC (Bld) 0 % 0 [facility] Interpretation and review of laboratory results Abnormal [facility] Lymphocytes/100 WBC (Bld) 35 % 24 - 43 % [facility] MCH (RBC) [Entitic mass] 32.6 pg 25. 2 - 33.5 pg [facility] MCHC (RBC) [Mass/Vol] 33.9 g/dL 28.4 - 34.8 g/dL [facility] MCV (RBC) [Entitic vol] 96.3 fL 82.6 - 102.9 fL [facility] Monocytes/100 WBC (Bld) 5 % 3 - 12 % B ON [facility] NRBC Automated 0.0 0.0 per 100 WBC [facility] Platelet distribution width (Bld) [Ratio] 12.7 % 11.8 - 14.4 % KENNEDY [facility] Platelets (Bld) [#/Vol] See Reflexed IPF Result KENNEDY [facility] RBC (Bld) [#/Vol] 3.28 10*6/uL Low 3.95 - 5.1 1 m/uL [facility] Segmented neutrophils/100 WBC (Bld) 58 % 36 - 65 % [facility] Segs Absolute 4.27 [facility] WBC (Bld) [#/Vol] 7.3 10*3/uL [facility] Ethanolon 05-23-2022 Ethanol [Mass/Vol] 13 mg/dL High NINF - 10 mg/dL [facility] Ethanol percent 0.013 % High NINF - 0.010 % [facility] Interpretation and review of laboratory results Abnormal [facility] Immature Platelet Fractionon 05-23-2022 Platelet, Fluorescence [address] [facility] Platelet, Immature Fraction 2.2 % 1.1 - 10.3 % [facility] XR ANKLE LEFT (MIN 3 VIEWS)o n 05-23-2022 Radiology Study observation (narrative) KENNEDY ADDISON [facility] Work Phone: XR FOOT LEFT (MIN 3 VIEWS)on 05-23-2022 Radiology Study observation (narrative) KENNEDY ADDISON [facility] Work Phone: Provider Letter FTMCon 10-28 Provider Letter [facility] October 28, 2021 TANJA CARRERO [address] [address] TANJA CARRERO 1965 Dear Minda Yeboah, This letter is to inform you the above patient has no-showed to two new patient appointments with Dr. Romo. If services are still needed for stated complaint, this office declines to reschedule her consultation. Thank you for your understanding in this matter. . Sincerely, Dr. Ronaldo Romo MD General Surgery Normal [facility] Physician Referralon 022 Physician Referral [phone] [id number] [id number] Normal [facility] CBC Auto Differentialon 05-31 Absolute Eos # 0.00 [facility] Absolute Immature Granulocyte 0.00 [employer] Absolute Lymph # 1.94 [facility] Absolute Newberry # 0.20 [facility] Basophils (Bld) [#/Vol] 0.00 10*3/uL [employer] Basophils/100 WBC (Bld) 0 % 0 - 2 % [employer]card [employer] Tag Differential Type NOT REPORTED [employer] Eosinophils/100 WBC (Bld) 0 % Low 1 - 4 % [employer] Hematocrit (Bld) [Volume fraction] 30.3 % Low 36.3 - 47.1 % [employer] Hemoglobin.gastrointesti nal spec 1 Ql (Stl) 10.7 g/dL Low 11.9 - 15.1 g/dL [employer] Immature granulocytes/100 WBC (Bld) 0 % 0 [employer] Interpretation and review of laboratory results Abnormal [employer] Lymphocytes/100 WBC (Bld) 50 % High 24 - 43 % [employer] MCH (RBC) [Entitic mass] 30.7 pg 25. 2 - 33.5 pg [employer] MCHC (RBC) [Mass/Vol] 35.3 g/dL High 28.4 - 34.8 g/dL [employer] MCV (RBC) [Entitic vol] 87.1 fL 82.6 - 102.9 fL [employer] Monocytes/100 WBC (Bld) 5 % 3 - 12 % [employer] Morphology Alejandro (Bld) [Interp] Normal [facility] [place] NRBC Automated 0.0 0.0 per 100 WBC [employer] Platelet distribution width (Bld) [Ratio] 14.3 % 11.8 - 14.4 % [employer] Platelet Estimate NOT REPORTED [facility] Plate[facility] mean volume (Bld) [Entitic vol] NOT REPORTED 8.1 - 13.5 fL [employer] Platelets (Bld) [#/Vol] See Reflexed IPF Result [facility] RBC (Bld) [#/Vol] 3.48 10*6/uL Low 3.95 - 5.1 1 m/uL [facility] RBC (Bld) [#/Vol] NOT REPORTED [facility] Segmented neutrophils/100 WBC (Bld) 45 % 36 - 65 % [facility] Segs [facility] [#/Vol] 3.9 10*3/uL [facility] WBC (Bld) [#/Vol] NOT REPORTED [facility] Comprehensive Metabolic Pane l w/ Reflex to MGon 06-18-2021 Albumin [Mass/Vol] 3.3 g/dL Low 3.5 - 5.2 g/dL [facility] Albumin/Globulin [Mass ratio] 1.3 {ratio} [facility] ALP (Bld) [Catalytic activity/Vol] 47 U/L 35 - 104 U/L [facility] ALT [Catalytic activity/Vol] 15 U/L 5 - 33 U/L [facility] Anion gap [Moles/Vol] 14 mmol/L 9 - 17 mmol/L [facility] AST [Catalytic activity/Vol] 28 U/L <32 [facility] Bilirubin [Mass/Vol] 0.33 mg/dL 0.3 - 1 .2 mg/dL [facility] Calcium [Mass/Vol] 9.3 mg/dL 8.6 - 10. 4 mg/dL [facility] Chloride [Moles/Vol] 108 mmol/L High 98 - 10 7 mmol/L [facility] CO2 [Moles/Vol] 15 mmol/L Low 20 - 31 mmol/L [facility] Creatinine [Mass/Vol] 0.71 mg/dL 0.50 - 0.90 mg/dL [facility] Free PSA/Total PSA [Mass fraction] 5.9 g/dL Low 6.4 - 8.3 g/dL [facility] GFR >60 >60 mL/min [facility] GFR Non- >60 >60 mL/min [facility] Glucose [Mass/Vol] 77 mg/dL 70 - 99 mg/dL [facility] Interpretation and review of laboratory results Abnormal [facility] Potassium [Moles/Vol] 3.7 mmol/L 3.7 - 5.3 mmol/L [facility] Sodium [Moles/Vol] 137 mmol/L 135 - 144 mmol/L [facility] Urea nitrogen (BldV) [Mass/Vol] 8 mg/dL 6 - 20 mg/dL [facility] Urea nitrogen/Creatinine (Bld) [Mass ratio] 11 [facility] D-Dimer, Quantitativeon 05-31 D-Dimer, Quant 0.91 High [facility] Comment on above: When combined with a low clinical probability, a D dimer value of <0.50 mg/L FEU is considered negative for DVT and PE (negative predictive value of 98%, sensitivity of 97%). If this test is not being used to help rule out DVT and PE, then the following reference range should be utilized: 0.00 - 0.59 mg/L FEU. The D-Dimer assay is intended for use as an aid in the diagnosis of venous thromboembolism (DVT and PE) and the results should be interpreted in conjunction with the patient's medical history, clinical presentation, and other findings. Elevated levels of D-dimer activity can be seen in any state of coagulation activation and is not recommended in patients with therapeutic dose anticoagulant therapy for >24 hours, fibrinolytic therapy within the previous 7 days, trauma or surgery within the previous 4 weeks, disseminated malignancies, aortic aneurysm, sepsis, severe infections, pneumonia, severe skin infections, liver cirrhosis, advanced age, coronary disease, diabetes, and . A very low percentage of patients with DVT may yield D-dimer results below the cutoff of 0.5 mg/L FEU. This is known to be more prevalent in patients with distal DVT. Interpretation and review of laboratory results Abnormal [facility] EKG Rhythm Stripon 1 [facility] LAB [facility] LAB [facility] Fibrinogenon 06-18-2021 Fibrinogen 405 mg/dL 179 - 518 mg/dL [facility] Immature Platelet Fractionon 06-18-2021 Interpretation and review of laboratory results Abnormal [facility] Platelet, Fluorescence 77 Low [facility] Platelet, Immature Fraction 5.2 % 1.1 - 10.3 % [facility] Laboratory - Chemistry and C hemistry - challengeon 06-18-2021 GFR/1.73 sq M.predicted MDRD (S/P/Bld) [Vol rate/Area] [facility] Comment on above: Average GFR for 50-5 9 years old: 93 mL/min/1.73sq m Chronic Kidney Disease: <60 mL/min/1.73sq m Kidney failure: <15 mL/min/1.73sq m eGFR calculated using average adult body mass. Additional eGFR calculator available at: http://www.[employer]/multiple_crcl_2012.htm Stage 1: Some kidney damage normal GFR Stage 2: Mild kidney damage GFR 60-89 Stage 3: Moderate kidney damage GFR 30-59 Stage 4: Severe kidney damage GFR 15-29 Stage 5: Severe kidney damage GFR <15 ESRD - chronic treatment by dialysis or transplant C-Reactive Proteinon 021 CRP [Mass/Vol] 56.5 mg/L High 0.0 - 5.0 mg/L [facility] Interpretation and review of laboratory results Abnormal [facility] [place] CBC Auto Differentialon 05-31 Absolute Eos # 0.00 [facility] Absolute Immature Granulocyte 0.04 [facility] Absolute Lymph # 2.01 [facility] alth Absolute Newberry # 0.22 [facility] Basophils (Bld) [#/Vol] 0.00 10*3/uL [facility] [place] Basophils/100 WBC (Bld) 0 % 0 - 2 % M [facility] [place] Differential Type NOT REPORTED [facility] Eosinophils/100 WBC (Bld) 0 % Low 1 - 4 % [facility] Hematocrit (Bld) [Volume fraction] 33.8 % Low 36.3 - 47.1 % [facility] Hemoglobin.gastrointesti nal spec 1 Ql (Stl) 11.6 g/dL Low 11.9 - 15.1 g/dL [facility] Immature granulocytes/100 WBC (Bld) 1 % High 0 [facility] Interpretation and review of laboratory results Abnormal [facility] Lymphocytes/100 WBC (Bld) 56 % High 24 - 43 % [facility] MCH (RBC) [Entitic mass] 29.7 pg 25. 2 - 33.5 pg [facility] MCHC (RBC) [Mass/Vol] 34.3 g/dL 28.4 - 34.8 g/dL [facility] MCV (RBC) [Entitic vol] 86.7 fL 82.6 - 102.9 fL [facility] Monocytes/100 WBC (Bld) 6 % 3 - 12 % M [employer] [place] Morphology Alejandro (Bld) [Interp] Normal [facility] NRBC Automated 0.0 0.0 per 100 WBC [facility] Platelet distribution width (Bld) [Ratio] 14.0 % 11.8 - 14.4 % [facility] Platelet Estimate NOT REPORTED [facility] Platelet mean volume (Bld) [Entitic vol] NOT REPORTED 8.1 - 13.5 fL [facility] Platelets (Bld) [#/Vol] See Reflexed IPF Result [facility] RBC (Bld) [#/Vol] 3.90 10*6/uL Low 3.95 - 5.1 1 m/uL [facility] RBC (Bld) [#/Vol] NOT REPORTED [facility] Segmented neutrophils/100 WBC (Bld) 37 % 36 - 65 % [facility] Segs Absolute 1.33 [facility] (Bld) [#/Vol] 3.6 10*3/uL [facility] WBC (Bld) [#/Vol] NOT REPORTED [facility] Comprehensive Metabolic Pane l w/ Reflex to MGon 06-17-2021 Albumin [Mass/Vol] 3.8 g/dL 3.5 - 5.2 g/dL [facility] Albumin/Globulin [Mass ratio] 1.5 {ratio} [facility] ALP (Bld) [Catalytic activity/Vol] 53 U/L 35 - 104 U/L [facility] ALT [Catalytic activity/Vol] 16 U/L 5 - 33 U/L [facility] Anion gap [Moles/Vol] 13 mmol/L 9 - 17 mmol/L [facility] AST [Catalytic activity/Vol] 36 U/L High <32 [facility] Bilirubin [Mass/Vol] 0.37 mg/dL 0.3 - 1 .2 mg/dL [facility] Calcium [Mass/Vol] 9.5 mg/dL 8.6 - 10. 4 mg/dL [facility] Chloride [Moles/Vol] 110 mmol/L High 98 - 10 7 mmol/L [facility] [facility] CO2 [Moles/Vol] 16 mmol/L Low 20 - 31 mmol/L [facility] Creatinine [Mass/Vol] 0.97 mg/dL High 0.50 - 0.90 mg/dL [facility] Free PSA/Total PSA [Mass fraction] 6.4 g/dL 6.4 - 8.3 g/dL [facility] GFR >60 >60 mL/min [facility] GFR Non- >60 >60 mL/min [facility] Glucose [Mass/Vol] 90 mg/dL 70 - 99 mg/dL [facility] Interpretation and review of laboratory results Abnormal [facility] Potassium [Moles/Vol] 3.6 mmol/L Low 3.7 - 5.3 mmol/L [facility] Sodium [Moles/Vol] 139 mmol/L 135 - 144 mmol/L [facility] Urea nitrogen (BldV) [Mass/Vol] 14 mg/dL 6 - 20 mg/dL [facility] Urea nitrogen/Creatinine (Bld) [Mass ratio] 14 [facility] D-Dimer, Quantitativeon 05-31 D-Dimer, Quant 1.14 High [facility] Comment on above: When combined with a low clinical probability, a D dimer value of <0.50 mg/L FEU is considered negative for DVT and PE (negative predictive value of 98%, sensitivity of 97%). If this test is not being used to help rule out DVT and PE, then the following reference range should be utilized: 0.00 - 0.59 mg/L FEU. The D-Dimer assay is intended for use as an aid in the diagnosis of venous thromboembolism (DVT and PE) and the results should be interpreted in conjunction with the patient's medical history, clinical presentation, and other findings. Elevated levels of D-dimer activity can be seen in any state of coagulation activation and is not recommended in patients with therapeutic dose anticoagulant therapy for >24 hours, fibrinolytic therapy within the previous 7 days, trauma or surgery within the previous 4 weeks, disseminated malignancies, aortic aneurysm, sepsis, severe infections, pneumonia, severe skin infections, liver cirrhosis, advanced age, coronary disease, diabetes, and . A very low percentage of patients with DVT may yield D-dimer results below the cutoff of 0.5 mg/L FEU. This is known to be more prevalent in patients with distal DVT. Interpretation and review of laboratory results Abnormal [facility] EKG Rhythm Stripon [facility] LAB [facility] LAB [facility] Ferritinon 06-17-2021 Ferritin 766 ug/L High 13 - 150 ug/L [facility] Interpretation and review of laboratory results Abnormal [facility] Fibrinogenon 06-17-2021 Fibrinogen 469 mg/dL 179 - 518 mg/dL [facility] Immature Platelet Fractionon 06-17-2021 Interpretation and review of laboratory results Abnormal [facility] Platelet, Fluorescence 97 Low [facility] Platelet, Immature Fraction 3.1 % 1.1 - 10.3 % [facility] Laboratory - Chemistry and C hemistry - challengeon 06-17-2021 GFR/1.73 sq M.predicted MDRD (S/P/Bld) [Vol rate/Area] [facility] Comment on above: Average GFR for 50-5 9 years old: 93 mL/min/1.73sq m Chronic Kidney Disease: <60 mL/min/1.73sq m Kidney failure: <15 mL/min/1.73sq m eGFR calculated using average adult body mass. Additional eGFR calculator available at: http://www.[employer]/multiple_crcl_2011.htm Stage 1: Some kidney damage normal GFR Stage 2: Mild kidney damage GFR 60-89 Stage 3: Moderate kidney damage GFR 30-59 Stage 4: Severe kidney damage GFR 15-29 Stage 5: Severe kidney damage GFR <15 ESRD - chronic treatment by dialysis or transplant C-Reactive Proteinon 021 CRP [Mass/Vol] 35.9 mg/L High 0.0 - 5.0 mg/L [facility] Interpretation and review of laboratory results Abnormal [facility] CBC Auto Differentialon 05-31 Absolute Eos # 0.00 [facility] th Absolute Immature Granulocyte 0.03 [facility] Absolute Lymph # 0.66 Low [facility] alth Absolute [place] # 0.09 Low [facility] lth Basophils (Bld) [#/Vol] 0.00 10*3/uL [facility] Basophils/100 WBC (Bld) 0 % 0 - 2 % M [facility] Differential Type NOT REPORTED [facility] Eosinophils/100 WBC (Bld) 0 % Low 1 - 4 % [facility] Hematocrit (Bld) [Volume fraction] 30.3 % Low 36.3 - 47.1 % [facility] Hemoglobin.gastrointesti nal spec 1 Ql (Stl) 10.2 g/dL Low 11.9 - 15.1 g/dL [facility] Immature granulocytes/100 WBC (Bld) 1 % High 0 [facility] Interpretation and review of laboratory results Abnormal [facility] Lymphocytes/100 WBC (Bld) 22 % Low 24 - 43 % [facility] MCH (RBC) [Entitic mass] 30.2 pg 25. 2 - 33.5 pg [facility] MCHC (RBC) [Mass/Vol] 33.7 g/dL 28.4 - 34.8 g/dL [facility] MCV (RBC) [Entitic vol] 89.6 fL 82.6 - 102.9 fL [facility] Monocytes/100 WBC (Bld) 3 % 3 - 12 % M [facility] Morphology Alejandro (Bld) [Interp] Normal [facility] NRBC Automated 0.0 0.0 per 100 WBC [facility] Platelet distribution width (Bld) [Ratio] 14.1 % 11.8 - 14.4 % [facility] Platelet Estimate NOT REPORTED [facility] Platelet mean volume (Bld) [Entitic vol] 10.4 fL 8.1 - 13.5 fL [facility] Platelets (Bld) [#/Vol] 101 10*3/uL Low [facility] RBC (Bld) [#/Vol] 3.38 10*6/uL Low 3.95 - 5.1 1 m/uL [facility] RBC (Bld) [#/Vol] NOT REPORTED [facility] Segmented neutrophils/100 WBC (Bld) 74 % High 36 - 65 % [facility] [#/Vol] 3.0 10*3/uL Low [facility] WBC (Bld) [#/Vol] NOT REPORTED [facility] Comprehensive Metabolic Pane l w/ Reflex to MGon 06-16-2021 Albumin [Mass/Vol] 3 g/dL Low 3.5 - 5.2 g/dL [facility] Albumin/Globulin [Mass ratio] 1.5 {ratio} [facility] ALP (Bld) [Catalytic activity/Vol] 44 U/L 35 - 104 U/L [facility] ALT [Catalytic activity/Vol] 10 U/L 5 - 33 U/L [facility] Anion gap [Moles/Vol] 16 mmol/L 9 - 17 mmol/L [facility] AST [Catalytic activity/Vol] 22 U/L <32 [facility] Bilirubin [Mass/Vol] mg/dL Low 0.3 - 1 .2 mg/dL [facility] Calcium [Mass/Vol] 7.6 mg/dL Low 8.6 - 10. 4 mg/dL [facility] Chloride [Moles/Vol] 115 mmol/L High 98 - 10 7 mmol/L [facility] CO2 [Moles/Vol] 9 mmol/L Critically low 20 - 31 mmol/L [facility] Creatinine [Mass/Vol] 1.1 mg/dL High 0.50 - 0.90 mg/dL [facility] Free PSA/Total PSA [Mass fraction] 5.0 g/dL Low 6.4 - 8.3 g/dL [facility] GFR >60 >60 mL/min [facility] [place] GFR Non- 52 mL/min Low >60 [facility] Glucose [Mass/Vol] 89 mg/dL 70 - 99 mg/dL [facility] Interpretation and review of laboratory results Abnormal [facility] Potassium [Moles/Vol] 2.2 mmol/L Critically low 3.7 - 5.3 mmol/L [facility] Sodium [Moles/Vol] 140 mmol/L 135 - 144 mmol/L [facility] Urea nitrogen (BldV) [Mass/Vol] 21 mg/dL High 6 - 20 mg/dL [facility] Urea nitrogen/Creatinine (Bld) [Mass ratio] 19 [facility] D-Dimer, Quantitativeon 11- D-Dimer, Quant 0.61 [facility] Comment on above: When combined with a low clinical probability, a D dimer value of <0.50 mg/L FEU is considered negative for DVT and PE (negative predictive value of 98%, sensitivity of 97%). If this test is not being used to help rule out DVT and PE, then the following reference range should be utilized: 0.00 - 0.59 mg/L FEU. The D-Dimer assay is intended for use as an aid in the diagnosis of venous thromboembolism (DVT and PE) and the results should be interpreted in conjunction with the patient's medical history, clinical presentation, and other findings. Elevated levels of D-dimer activity can be seen in any state of coagulation activation and is not recommended in patients with therapeutic dose anticoagulant therapy for >24 hours, fibrinolytic therapy within the previous 7 days, trauma or surgery within the previous 4 weeks, disseminated malignancies, aortic aneurysm, sepsis, severe infections, pneumonia, severe skin infections, liver cirrhosis, advanced age, coronary disease, diabetes, and . A very low percentage of patients with DVT may yield D-dimer results below the cutoff of 0.5 mg/L FEU. This is known to be more prevalent in patients with distal DVT. Interpretation and review of laboratory results Abnormal [facility] EKG Rhythm Stripon [facility] LAB [facility] Ferritinon 06-16-2021 Ferritin 437 ug/L High 13 - 150 ug/L [facility] Interpretation and review of laboratory results Abnormal [facility] Fibrinogenon 06-16-2021 Fibrinogen 331 mg/dL 179 - 518 mg/dL [facility] Laboratory - Chemistry and C hemistry - challengeon 06-16-2021 GFR/1.73 sq M.predicted MDRD (S/P/Bld) [Vol rate/Area] [facility] Comment on above: Average GFR for 50-5 9 years old: 93 mL/min/1.73sq m Chronic Kidney Disease: <60 mL/min/1.73sq m Kidney failure: <15 mL/min/1.73sq m eGFR calculated using average adult body mass. Additional eGFR calculator available at: http://www.[employer]/multiple_crcl_2012.htm Stage 1: Some kidney damage normal GFR Stage 2: Mild kidney damage GFR 60-89 Stage 3: Moderate kidney damage GFR 30-59 Stage 4: Severe kidney damage GFR 15-29 Stage 5: Severe kidney damage GFR <15 ESRD - chronic treatment by dialysis or transplant MRI BRAIN W WO CONTRASTon EXAMINATION: MRI OF THE BRAIN WITHOUT AND WITH CONTRAST 06/16/2021 12:35 pm TECHNIQUE: Multiplanar multisequence MRI of the head/brain was performed without and with the administration of intravenous contrast. COMPARISON: None. HISTORY: ORDERING SYSTEM PROVIDED HISTORY: ams TECHNOLOGIST PROVIDED HISTORY: ams Is the patient ?->No Initial evaluation. FINDINGS: Motion degrades images limiting evaluation. INTRACRANIAL STRUCTURES/VENTRICL ES: There is no acute infarct. No mass effect or midline shift. No evidence of an acute intracranial hemorrhage. Minimal areas of T2 FLAIR hyperintensity are seen in the periventricular and subcortical white matter, which are nonspecific, but may represent chronic microvascular ischemic change. The ventricles and sulci are normal in size and configuration. The sellar/suprasellar regions appear unremarkable. The normal signal voids within the major intracranial vessels appear maintained. No abnormal focus of enhancement is seen within the brain. There is a thin linear T1 hyperintense lesion along is the dorsal corpus callosum. ORBITS: The visualized portion of the orbits demonstrate no acute abnormality. SINUSES: Scattered mucosal thickening of the paranasal sinuses. The mastoid air cells demonstrate no acute abnormality. BONES/SOFT TISSUES: The bone marrow signal intensity appears normal. The soft tissues demonstrate no acute abnormality. [facility] RIS CONSOLIDATED Joey Phillips MD - 06/16/2021 EXAMINATION: MRI OF THE BRAIN WITHOUT AND WITH CONTRAST 06/16/2021 12:35 pm TECHNIQUE: Multiplanar multisequence MRI of the head/brain was performed without and with the administration of intravenous contrast. COMPARISON: None. HISTORY: ORDERING SYSTEM PROVIDED HISTORY: ams TECHNOLOGIST PROVIDED HISTORY: ams Is the patient ?->No Initial evaluation. FINDINGS: Motion degrades images limiting evaluation. INTRACRANIAL STRUCTURES/VENTRICL ES: There is no acute infarct. No mass effect or midline shift. No evidence of an acute intracranial hemorrhage. Minimal areas of T2 FLAIR hyperintensity are seen in the periventricular and subcortical white matter, which are nonspecific, but may represent chronic microvascular ischemic change. The ventricles and sulci are normal in size and configuration. The sellar/suprasellar regions appear unremarkable. The normal signal voids within the major intracranial vessels appear maintained. No abnormal focus of enhancement is seen within the brain. There is a thin linear T1 hyperintense lesion along is the dorsal corpus callosum. ORBITS: The visualized portion of the orbits demonstrate no acute abnormality. SINUSES: Scattered mucosal thickening of the paranasal sinuses. The mastoid air cells demonstrate no acute abnormality. BONES/SOFT TISSUES: The bone marrow signal intensity appears normal. The soft tissues demonstrate no acute abnormality. IMPRESSION: 1. Patient motion limits evaluation. 2. No acute intracranial abnormality. No acute infarct. 3. Minimal chronic microvascular ischemic changes. 4. Tiny dorsal callosal lipoma. 5. Scattered mucosal thickening of the paranasal sinuses. [employer] Work Phone: Radiology Study observation (narrative) [employer] [facility] Work Phone: MRI BRAIN W WO CONTRASTOrder ed By: Joey Phillips on 06-16-2021 [facility] Work Phone: Magnesiumon 06-16-2021 Magnesium [Mass/Vol] 1.6 mg/dL 1.6 - 2 .6 mg/dL [facility] Potassiumon 06-16-2021 Interpretation and review of laboratory results Abnormal [facility] Potassium [Moles/Vol] 2.9 mmol/L Critically low 3.7 - 5.3 mmol/L [facility] Ammoniaon 06-15-2021 Ammonia (P) [Moles/Vol] 33 umol/L 11 - 41 umol/L [facility] C-Reactive Proteinon 021 CRP [Mass/Vol] 20.2 mg/L High 0.0 - 5.0 mg/L [facility] Interpretation and review of laboratory results Abnormal [facility] CBC auto differentialon 05-31 Absolute Eos # 0.00 [facility] th Absolute Immature Granulocyte 0.04 [facility] Absolute Lymph # 0.53 Low [facility] alth Absolute [place] # 0.33 [facility] lth Basophils (Bld) [#/Vol] 0.00 10*3/uL [facility] Basophils/100 WBC (Bld) 0 % 0 - 2 % [facility] Differential Type NOT REPORTED [facility] Eosinophils/100 WBC (Bld) 0 % Low 1 - 4 % [facility] Hematocrit (Bld) [Volume fraction] 39.6 % 36.3 - 47.1 % [facility] Hemoglobin.gastrointesti nal spec 1 Ql (Stl) 13.7 g/dL 11.9 - 15.1 g/dL [facility] Immature granulocytes/100 WBC (Bld) 1 % High 0 [facility] Interpretation and review of laboratory results Abnormal [facility] Lymphocytes/100 WBC (Bld) 13 % Low 24 - 43 % [facility] MCH (RBC) [Entitic mass] 30.3 pg 25. 2 - 33.5 pg [facility] MCHC (RBC) [Mass/Vol] 34.6 g/dL 28.4 - 34.8 g/dL [facility] MCV (RBC) [Entitic vol] 87.6 fL 82.6 - 102.9 fL [facility] Monocytes/100 WBC (Bld) 8 % 3 - 12 % M [facility] Morphology Alejandro (Bld) [Interp] Normal [facility] NRBC Automated 0.0 0.0 per 100 WBC [facility] Platelet distribution width (Bld) [Ratio] 13.7 % 11.8 - 14.4 % [facility] Platelet Estimate NOT REPORTED [facility] Platelet mean volume (Bld) [Entitic vol] 10.0 fL 8.1 - 13.5 fL [facility] Platelets (Bld) [#/Vol] 177 10*3/uL [facility] RBC (Bld) [#/Vol] 4.52 10*6/uL 3.95 - 5.1 1 m/uL [facility] RBC (Bld) [#/Vol] NOT REPORTED [facility] Segmented neutrophils/100 WBC (Bld) 78 % High 36 - 65 % [facility]s [facility] [#/Vol] 4.1 10*3/uL [facility] WBC (Bld) [#/Vol] NOT REPORTED [facility] Comprehensive Metabolic Pane l w/ Reflex to MGon 06-15-2021 Albumin [Mass/Vol] 4.2 g/dL 3.5 - 5.2 g/dL [facility] Albumin/Globulin [Mass ratio] 1.6 {ratio} [facility] ALP (Bld) [Catalytic activity/Vol] 66 U/L 35 - 104 U/L [facility] ALT [Catalytic activity/Vol] 16 U/L 5 - 33 U/L [facility] Anion gap [Moles/Vol] 19 mmol/L High 9 - 17 mmol/L [facility] AST [Catalytic activity/Vol] 26 U/L <32 [facility] Bilirubin [Mass/Vol] mg/dL Low 0.3 - 1 .2 mg/dL [facility] Calcium [Mass/Vol] 9.0 mg/dL 8.6 - 10. 4 mg/dL [facility] Chloride [Moles/Vol] 105 mmol/L 98 - 10 7 mmol/L [facility] CO2 [Moles/Vol] 10 mmol/L Low 20 - 31 mmol/L [facility] Creatinine [Mass/Vol] 1.64 mg/dL High 0.50 - 0.90 mg/dL [facility] Free PSA/Total PSA [Mass fraction] 6.8 g/dL 6.4 - 8.3 g/dL [facility] GFR 40 mL/min Low >60 [facility] GFR Non- 33 mL/min Low >60 [facility] Glucose [Mass/Vol] 114 mg/dL High 70 - 99 mg/dL [facility] Interpretation and review of laboratory results Abnormal [facility] Potassium [Moles/Vol] 3.2 mmol/L Low 3.7 - 5.3 mmol/L [facility] Sodium [Moles/Vol] 134 mmol/L Low 135 - 144 mmol/L [facility] Urea nitrogen (BldV) [Mass/Vol] 30 mg/dL High 6 - 20 mg/dL [facility] Urea nitrogen/Creatinine (Bld) [Mass ratio] 18 [facility] D-Dimer, Quantitativeon 05-31 D-Dimer, Quant 1.34 High [facility] Comment on above: When combined with a low clinical probability, a D dimer value of <0.50 mg/L FEU is considered negative for DVT and PE (negative predictive value of 98%, sensitivity of 97%). If this test is not being used to help rule out DVT and PE, then the following reference range should be utilized: 0.00 - 0.59 mg/L FEU. The D-Dimer assay is intended for use as an aid in the diagnosis of venous thromboembolism (DVT and PE) and the results should be interpreted in conjunction with the patient's medical history, clinical presentation, and other findings. Elevated levels of D-dimer activity can be seen in any state of coagulation activation and is not recommended in patients with therapeutic dose anticoagulant therapy for >24 hours, fibrinolytic therapy within the previous 7 days, trauma or surgery within the previous 4 weeks, disseminated malignancies, aortic aneurysm, sepsis, severe infections, pneumonia, severe skin infections, liver cirrhosis, advanced age, coronary disease, diabetes, and . A very low percentage of patients with DVT may yield D-dimer results below the cutoff of 0.5 mg/L FEU. This is known to be more prevalent in patients with distal DVT. Interpretation and review of laboratory results Abnormal [facility] EKG Rhythm Stripon [facility] Ferritinon 06-15-2021 Ferritin 511 ug/L High 13 - 150 ug/L [facility] Interpretation and review of laboratory results Abnormal [facility] Fibrinogenon 06-15-2021 Fibrinogen 369 mg/dL 179 - 518 mg/dL [facility] LACTATE DEHYDROGENASEon 05-31 LD 148 U/L 135 - 214 U/L [facility] Comment on above: HEMOLYSIS PRESENT AN D MAY AFFECT LD RESULT [facility] Laboratory - Chemistry and C hemistry - challengeon 06-15-2021 GFR/1.73 sq M.predicted MDRD (S/P/Bld) [Vol rate/Area] [facility] Comment on above: Average GFR for 50-5 9 years old: 93 mL/min/1.73sq m Chronic Kidney Disease: <60 mL/min/1.73sq m Kidney failure: <15 mL/min/1.73sq m eGFR calculated using average adult body mass. Additional eGFR calculator available at: http://www.[employer]/multiple_crcl_2012.htm Stage 1: Some kidney damage normal GFR Stage 2: Mild kidney damage GFR 60-89 Stage 3: Moderate kidney damage GFR 30-59 Stage 4: Severe kidney damage GFR 15-29 Stage 5: Severe kidney damage GFR <15 ESRD - chronic treatment by dialysis or transplant Magnesiumon 06-15-2021 Magnesium [Mass/Vol] 1.9 mg/dL 1.6 - 2 .6 mg/dL [facility] Microscopic Urinalysison - [facility] Amorphous, UA NOT REPORTED None [facility] Bacteria, UA NOT REPORTED None [facility] th Casts UA NOT REPORTED /LPF [facility] Crystals, UA NOT REPORTED None /HPF [facility] th Epithelial Cells UA 10 TO 20 [facility] Mucus, UA NOT REPORTED None [facility] Other Observations UA NOT REPORTED NOT REQ. M [facility] RBC, UA 0 TO 2 [facility] Renal Epithelial, UA NOT REPORTED 0 /HPF [facility] Trichomonas, UA NOT REPORTED None [facility] ealt WBC, UA 0 TO 2 [facility] Yeast, UA NOT REPORTED None [facility] Urinalysis Reflex to Culture on 06-15-2021 Bilirubin U[facility] Negative [facility], [facility]A Yellow Yellow [facility] Glucose, Ur Negative NEGATIVE [facility] Interpretation and review of laboratory results Abnormal [facility] Ketones Ql (U) 2+ Abnormal NEGATIVE [facility] Leukocyte esterase Test strip Ql (U) Negative NEGATIVE [facility] Nitrite, Urine Negative NEGATIVE [facility] pH, UA 6.0 [facility] Protein, UA 1+ Abnormal NEGATIVE [facility] Specific [place], UA 1.015 [facility] Turbidity UA Clear Clear [facility] Urinalysis Comments NOT REPORTED [facility] Urine Hgb TRACE Abnormal NEGATIVE [facility] Urobilinogen, Urine Normal Normal [facility] Amylaseon 06-14-2021 Amylase [Catalytic activity/Vol] 59 U/L 28 - 100 U/L [facility] CBC Auto Differentialon 05-31 Absolute Eos # <0.03 [facility] Absolute Immature Granulocyte 0.04 [facility] Absolute Lymph # 0.80 Low [facility] alth Absolute [place] # 0.39 [facility] lt Basophils (Bld) [#/Vol] 10*3/uL [facility] Basophils/100 WBC (Bld) 1 % 0 - 2 % [facility] Differential Type NOT REPORTED [facility] Eosinophils/100 WBC (Bld) 0 % Low 1 - 4 % [facility] Hematocrit (Bld) [Volume fraction] 49.7 % High 36.3 - 47.1 % [facility] Hemoglobin.gastrointesti nal spec 1 Ql (Stl) 16.9 g/dL High 11.9 - 15.1 g/dL [facility] Immature granulocytes/100 WBC (Bld) 1 % High 0 [facility] Interpretation and review of laboratory results Abnormal [facility] [facility] Lymphocytes/100 WBC (Bld) 19 % Low 24 - 43 % [facility] MCH (RBC) [Entitic mass] 30.1 pg 25. 2 - 33.5 pg [facility] MCHC (RBC) [Mass/Vol] 34.0 g/dL 28.4 - 34.8 g/dL [facility] MCV (RBC) [Entitic vol] 88.6 fL 82.6 - 102.9 fL [facility] Monocytes/100 WBC (Bld) 9 % 3 - 12 % [facility] NRBC Automated 0.0 0.0 per 100 WBC [facility] Platelet distribution width (Bld) [Ratio] 13.5 % 11.8 - 14.4 % [facility] Platelet Estimate NOT REPORTED [facility] Platelet mean volume (Bld) [Entitic vol] 10.0 fL 8.1 - 13.5 fL [facility] Platelets (Bld) [#/Vol] 256 10*3/uL [facility] RBC (Bld) [#/Vol] 5.61 10*6/uL High 3.95 - 5.1 1 m/uL [facility] RBC (Bld) [#/Vol] NOT REPORTED [facility] Segmented neutrophils/100 WBC (Bld) 70 % High 36 - 65 % [facility] [#/Vol] 4.3 10*3/uL [facility] WBC (Bld) [#/Vol] NOT REPORTED [facility] COVID-19, Rapidon 06-14-2021 Interpretation and review of laboratory results Abnormal [facility] SARS-CoV-2 (COVID-19) RNA KAYLEEN+probe Ql (Unsp spec) Detected Abnormal Not Detected [facility] Comment on above: Rapid NAAT: The specimen is POSITIVE for SARS-Cov-2, the novel coronavirus associated with COVID-19. This test has been authorized by the FDA under an Emergency Use Authorization (EUA) for use by authorized laboratories. The ID NOW COVID-19 assay is designed to detect the virus that causes COVID-19 in patients with signs and symptoms of infection who are suspected of COVID-19. An individual without symptoms of COVID-19 and who is not shedding SARS-CoV-2 virus would expect to have a negative (not detected) result in this assay. Fact sheet for Healthcare Providers: https://www.fda.gov/media/113710/download Fact sheet for Patients: https://www.fda.gov/media/379194/download Methodology: Isothermal Nucleic Acid Amplification Results reported to the appropriate Health Department Specimen Description .NASOPHARYNGEAL SWAB [facility] CT ABDOMEN PELVIS W IV CONTR AST Additional Contrast? Radiologist Recommendationon 06-14-2021 Ill-defined small ground-glass parenchymal opacity in the right lower lobe is nonspecific, this could reflect infection, pneumonia or atelectasis. Correlate clinically. Follow-up CT chest in 6-8 weeks would be recommended after appropriate therapy has been administered to ensure resolution. Small hiatus hernia and patulous distal esophagus. Esophagitis/GERD could be considered. Otherwise, no acute process in the abdomen or pelvis. [facility] EXAMINATION: CT OF THE ABDOMEN AND PELVIS WITH CONTRAST 06/14/2021 3:22 pm TECHNIQUE: CT of the abdomen and pelvis was performed with the administration of intravenous contrast. Multiplanar reformatted images are provided for review. Dose modulation, iterative reconstruction, and/or weight based adjustment of the mA/kV was utilized to reduce the radiation dose to as low as reasonably achievable. COMPARISON: None HISTORY: ORDERING SYSTEM PROVIDED HISTORY: Vomiting rlq pain TECHNOLOGIST PROVIDED HISTORY: Vomiting rlq pain Decision Support Exception - unselect if not a suspected or confirmed emergency medical condition->Emergenc y Medical Condition (MA) FINDINGS: Lower Chest: Small ill-defined ground-glass opacity at the periphery of the right lower lobe is nonspecific. Small hiatus hernia is noted. Organs: Small hepatic cysts noted measuring up to 14 mm. No concerning liver lesion. No calcified gallstones or biliary ductal dilatation. The spleen is normal in size without focal lesion. The pancreas and the adrenal glands are unremarkable. The kidneys enhance symmetrically without collecting system dilatation. Subcentimeter low-density in the right upper pole kidney, while too small to characterize, statistically likely reflects a tiny cyst. No concerning renal lesion. GI/Bowel: No bowel obstruction. The appendix is not definitely identified. However, there are no secondary findings to suggest the presence of acute appendicitis. Pelvis: The urinary bladder, uterus and adnexa are within normal limits. Peritoneum/Retroper itoneum: No abdominal lymphadenopathy or ascites. Bones/Soft Tissues: No acute osseous abnormality. [facility] Katrin Rich MD - 06/14/2021 EXAMINATION: CT OF THE ABDOMEN AND PELVIS WITH CONTRAST 06/14/2021 3:22 pm TECHNIQUE: CT of the abdomen and pelvis was performed with the administration of intravenous contrast. Multiplanar reformatted images are provided for review. Dose modulation, iterative reconstruction, and/or weight based adjustment of the mA/kV was utilized to reduce the radiation dose to as low as reasonably achievable. COMPARISON: None HISTORY: ORDERING SYSTEM PROVIDED HISTORY: Vomiting rlq pain TECHNOLOGIST PROVIDED HISTORY: Vomiting rlq pain Decision Support Exception - unselect if not a suspected or confirmed emergency medical condition->Emergenc y Medical Condition (MA) FINDINGS: Lower Chest: Small ill-defined ground-glass opacity at the periphery of the right lower lobe is nonspecific. Small hiatus hernia is noted. Organs: Small hepatic cysts noted measuring up to 14 mm. No concerning liver lesion. No calcified gallstones or biliary ductal dilatation. The spleen is normal in size without focal lesion. The pancreas and the adrenal glands are unremarkable. The kidneys enhance symmetrically without collecting system dilatation. Subcentimeter low-density in the right upper pole kidney, while too small to characterize, statistically likely reflects a tiny cyst. No concerning renal lesion. GI/Bowel: No bowel obstruction. The appendix is not definitely identified. However, there are no secondary findings to suggest the presence of acute appendicitis. Pelvis: The urinary bladder, uterus and adnexa are within normal limits. Peritoneum/Retroper itoneum: No abdominal lymphadenopathy or ascites. Bones/Soft Tissues: No acute osseous abnormality. IMPRESSION: Ill-defined small ground-glass parenchymal opacity in the right lower lobe is nonspecific, this could reflect infection, pneumonia or atelectasis. Correlate clinically. Follow-up CT chest in 6-8 weeks would be recommended after appropriate therapy has been administered to ensure resolution. Small hiatus hernia and patulous distal esophagus. Esophagitis/GERD could be considered. Otherwise, no acute process in the abdomen or pelvis. [employer] Work Phone: Radiology Study observation (narrative) [employer] Work Phone: CT ABDOMEN PELVIS W IV CONTR AST Additional Contrast? Radiologist RecommendationOrdered By: Katrin Rich on 06-14-2021 [employer] Work Phone: CT Head WO Contraston 2020 1. No acute intracranial abnormality. 2. Air-fluid level in the left maxillary sinus, possibly indicating sinusitis. [facility] EXAMINATION: CT OF THE HEAD WITHOUT CONTRAST, 06/14/2021 3:19 pm TECHNIQUE: CT of the head was performed without the administration of intravenous contrast. Dose modulation, iterative reconstruction, and/or weight based adjustment of the mA/kV was utilized to reduce the radiation dose to as low as reasonably achievable. COMPARISON: None HISTORY: ORDERING SYSTEM PROVIDED HISTORY: Confusion TECHNOLOGIST PROVIDED HISTORY: Confusion Decision Support Exception - unselect if not a suspected or confirmed emergency medical condition->Emergenc y Medical Condition (MA) Is the patient ? No FINDINGS: BRAIN/VENTRICLES: There is no acute intracranial hemorrhage, mass effect or midline shift. No abnormal extra-axial fluid collection. The kirby-white differentiation is maintained without evidence of an acute infarct. There is no evidence of hydrocephalus. ORBITS: The visualized portion of the orbits demonstrate no acute abnormality. SINUSES: Air-fluid level is noted in the left maxillary sinus. Mastoid air cells are aerated. SOFT TISSUES/SKULL: No acute abnormality of the visualized skull or soft tissues. [facility] Ru Sonya, DO - 06/14/2021 EXAMINATION: CT OF THE HEAD WITHOUT CONTRAST, 06/14/2021 3:19 pm TECHNIQUE: CT of the head was performed without the administration of intravenous contrast. Dose modulation, iterative reconstruction, and/or weight based adjustment of the mA/kV was utilized to reduce the radiation dose to as low as reasonably achievable. COMPARISON: None HISTORY: ORDERING SYSTEM PROVIDED HISTORY: Confusion TECHNOLOGIST PROVIDED HISTORY: Confusion Decision Support Exception - unselect if not a suspected or confirmed emergency medical condition->Emergenc y Medical Condition (MA) Is the patient ? No FINDINGS: BRAIN/VENTRICLES: There is no acute intracranial hemorrhage, mass effect or midline shift. No abnormal extra-axial fluid collection. The kirby-white differentiation is maintained without evidence of an acute infarct. There is no evidence of hydrocephalus. ORBITS: The visualized portion of the orbits demonstrate no acute abnormality. SINUSES: Air-fluid level is noted in the left maxillary sinus. Mastoid air cells are aerated. SOFT TISSUES/SKULL: No acute abnormality of the visualized skull or soft tissues. IMPRESSION: 1. No acute intracranial abnormality. 2. Air-fluid level in the left maxillary sinus, possibly indicating sinusitis. [employer] Work Phone: Radiology Study observation (narrative) [employer] Work Phone: CT Head WO ContrastOrdered B y: Sonya Vences on 06-14-2021 [employer] Work Phone: Comprehensive Metabolic Pane l w/ Reflex to MGon 06-14-2021 Albumin [Mass/Vol] 5.2 g/dL 3.5 - 5.2 g/dL [employer] Albumin/Globulin [Mass ratio] 1.2 {ratio} [employer] ALP (Bld) [Catalytic activity/Vol] 90 U/L 35 - 104 U/L [employer] [place] ALT [Catalytic activity/Vol] 23 U/L 5 - 33 U/L [facility] [place] Anion gap [Moles/Vol] 28 mmol/L High 9 - 17 mmol/L [employer] [place] AST [Catalytic activity/Vol] 41 U/L High <32 [facility] [place] Comment on above: HEMOLYSIS PRESENT MA Y AFFECT AST RESULT Bilirubin [Mass/Vol] 0.21 mg/dL Low 0.3 - 1 .2 mg/dL [facility] [place] Calcium [Mass/Vol] 10.0 mg/dL 8.6 - 10. 4 mg/dL [facility] [place] Chloride [Moles/Vol] 94 mmol/L Low 98 - 10 7 mmol/L [employer] CO2 [Moles/Vol] 10 mmol/L Low 20 - 31 mmol/L [facility] [place] Creatinine [Mass/Vol] 2.03 mg/dL High 0.50 - 0.90 mg/dL [facility] [place] Free PSA/Total PSA [Mass fraction] 9.5 g/dL High 6.4 - 8.3 g/dL [facility] [place] GFR 31 mL/min Low >60 [employer] GFR Non- 26 mL/min Low >60 [facility] [place] Glucose [Mass/Vol] 119 mg/dL High 70 - 99 mg/dL [facility] Interpretation and review of laboratory results Abnormal [facility] Pot[facility] [Moles/Vol] 3.8 mmol/L 3.7 - 5.3 mmol/L [facility] [place] Sodium [Moles/Vol] 132 mmol/L Low 135 - 144 mmol/L [facility] [place] Urea nitrogen (BldV) [Mass/Vol] 34 mg/dL High 6 - 20 mg/dL [facility] [place] Urea nitrogen/Creatinine (Bld) [Mass ratio] 17 [facility] [place] EKG 12 LeadOrdered By: Arik Baumann on 06-14-2021 Atrial Rate 115 BPM [employer] Work Phone: P-R Interval 104 ms [employer] Work Phone: Q-T Interval 456 ms [employer] Work Phone: QRS Duration 92 ms [employer] Work Phone: QTc Calculation (Bazett) 630 ms [employer] Work Phone: R Savage 0 degrees [employer] Work Phone: T Savage 0 degrees [employer] Work Phone: Ventricular Rate 115 BPM [employer] Work Phone: [employer] Work Phone: EKG 12 Leadon 06-14-2021 Sinus tachycardia with short AR with Premature supraventricular complexes Septal infarct , age undetermined ST & T wave abnormality, consider anterolateral ischemia Prolonged QT Abnormal ECG No previous ECGs available Confirmed by SUSANA BAUMANN ([id number]) on 06/14/2021 8:29:37 PM [facility] RADIOLOGY Susana Baumann MD - 06/14/2021 Sinus tachycardia with short AR with Premature supraventricular complexes Septal infarct , age undetermined ST & T wave abnormality, consider anterolateral ischemia Prolonged QT Abnormal ECG No previous ECGs available Confirmed by SUSANA BAUMANN ([id number]) on 06/14/2021 8:29:37 PM [employer] Work Phone: Glucose, Whole Bloodon 06-14 Glucose [Mass/Vol] 117 mg/dL High 74 - 100 mg/dL [employer] Interpretation and review of laboratory results Abnormal [facility] [place] Laboratory - Chemistry and C hemistry - challengeon 06-14-2021 GFR/1.73 sq M.predicted MDRD (S/P/Bld) [Vol rate/Area] [employer] Comment on above: Average GFR for 50-5 9 years old: 93 mL/min/1.73sq m Chronic Kidney Disease: <60 mL/min/1.73sq m Kidney failure: <15 mL/min/1.73sq m eGFR calculated using average adult body mass. Additional eGFR calculator available at: http://www.[employer]/multiple_crcl_2012.htm Stage 1: Some kidney damage normal GFR Stage 2: Mild kidney damage GFR 60-89 Stage 3: Moderate kidney damage GFR 30-59 Stage 4: Severe kidney damage GFR 15-29 Stage 5: Severe kidney damage GFR <15 ESRD - chronic treatment by dialysis or transplant Lactic Acidon 06-14-2021 Lactate [Moles/Vol] 1.4 mmol/L 0.5 - 2. 2 mmol/L [facility] Lipaseon 06-14-2021 Interpretation and review of laboratory results Abnormal [facility] Lipase [Catalytic activity/Vol] 101 U/L High 13 - 60 U/L [facility] No Panel Informationon 06-14 [facility] POCT glucoseOrdered By: Ash Fajardo on 06-14-2021 Glucose [Mass/Vol] 117 mg/dL [facility] Interpretation and review of laboratory results Normal [facility] QC OK? yes [facility] Troponinon 06-14-2021 Troponin Interp NOT REPORTED [facility] ealt Troponin T NOT REPORTED <0.03 ng/mL [facility] Troponin, High Sensitivity 14 ng/L 0 - 14 ng/L [facility] Comment on above: High Sensitivity Troponin values cannot be compared with other Troponin methodologies. Patients with high levels of Biotin oral intake (i.e >5mg/day) may have falsely decreased Troponin levels. Samples collected within 8 hours of biotin intake may require additional information for diagnosis. [facility] XR CHEST PORTABLEon 06-14-20 21 Focal right lower lobe consolidation concerning for pneumonia. [facility] EXAMINATION: ONE XRAY VIEW OF THE CHEST 06/14/2021 4:34 pm COMPARISON: None. HISTORY: ORDERING SYSTEM PROVIDED HISTORY: cough TECHNOLOGIST PROVIDED HISTORY: cough FINDINGS: Cardiomediastinal silhouette within normal limits. Focal right lower lobe consolidation. No definite effusion. No pneumothorax or subdiaphragmatic free air. No acute osseous abnormality identified. [facility] Brian England MD - 06/14/2021 EXAMINATION: ONE XRAY VIEW OF THE CHEST 06/14/2021 4:34 pm COMPARISON: None. HISTORY: ORDERING SYSTEM PROVIDED HISTORY: cough TECHNOLOGIST PROVIDED HISTORY: cough FINDINGS: Cardiomediastinal silhouette within normal limits. Focal right lower lobe consolidation. No definite effusion. No pneumothorax or subdiaphragmatic free air. No acute osseous abnormality identified. IMPRESSION: Focal right lower lobe consolidation concerning for pneumonia. [facility] Work Phone: Radiology Study observation (narrative) Sarah [facility] Work Phone: XR CHEST PORTABLEOrdered By: Brian England on 06-14-2021 [employer] [facility] Work Phone: Vital Signs Date Time Vital Sign Value Performing Clinician Facility 12-17-2024 16:00-0400 Body mass index (BMI) [Ratio] 31.51 kg/m2 Minda Yeboah HEDIS COORDINATOR Work Phone: [facility] 12-17-2024 16:00-0400 Body temperature 97.81 [degF] Minda Yonathanhgailz HEDIS COORDINATOR Work Phone: [facility] 12-17-2024 16:00-0400 Body weight 91.26 kg Minda Edilia HEDIS COORDINATOR Work Phone: [facility] 12-17-2024 16:00-0400 Diastolic blood pressure 84 mm[Hg] Minda Daianaz HEDIS COORDINATOR Work Phone: [facility] 12-17-2024 16:00-0400 Heart rate 86 /min Minda Aichholz HEDIS COORDINATOR Work Phone: [facility] 12-17-2024 16:00-0400 Respiratory rate 19 /min Minda Daianaz HEDIS COORDINATOR Work Phone: [facility] 12-17-2024 16:00-0400 SaO2% (BldA) [Mass fraction] 98 % Minda Edilia HEDIS COORDINATOR Work Phone: [facility] 12-17-2024 16:00-0400 Systolic blood pressure 116 mm[Hg] Minda Yonathanhholz HEDIS COORDINATOR Work Phone: [facility] 10-17-2024 12:42-0400 Body height 170.2 cm Cristian Szymanski MD Work Phone: [facility] 10-17-2024 12:42-0400 Body mass index (BMI) [Ratio] 32.89 kg/m2 Cristian Szymanski MD Work Phone: [facility] 10-17-2024 12:42-0400 Body weight 95.25 kg Cristian Szymanski MD Work Phone: [facility] [place] [facility] 10-17-2024 12:42-0400 Respiratory rate 16 /min Cristian Szymanski MD Work Phone: [facility] 08-19-2024 13:59-0500 Body height 170.2 cm Cristian Szymanski MD Work Phone: [facility] 08-19-2024 13:59-0500 Body mass index (BMI) [Ratio] 28.98 kg/m2 Cristian Szymanski MD Work Phone: [facility] 08-19-2024 13:59-0500 Body weight 83.92 kg Cristian Szymanski MD Work Phone: [facility] 08-19-2024 13:59-0500 Diastolic blood pressure 78 mm[Hg] Cristian Szymanski MD Work Phone: [facility] 08-19-2024 13:59-0500 Heart rate 58 /min Cristian Szymanski MD Work Phone: [facility] 08-19-2024 13:59-0500 Respiratory rate 18 /min Cristian Szymanski MD Work Phone: [facility] 08-19-2024 13:59-0500 Systolic blood pressure 110 mm[Hg] Cristian Szymanski MD Work Phone: [facility] 07-04-2024 13:57-0500 Body height 170.2 cm Minda Yeboah HEDIS COORDINATOR Work Phone: [facility] 07-04-2024 13:57-0500 Body mass index (BMI) [Ratio] 29.44 kg/m2 Minda Yeboah HEDIS COORDINATOR Work Phone: [facility] 07-04-2024 13:57-0500 Body temperature 98.1 [degF] Minda Yeboah HEDIS COORDINATOR Work Phone: [facility] 07-04-2024 13:57-0500 Body weight 85.28 kg Minda Rupertoholz HEDIS COORDINATOR Work Phone: [facility] 07-04-2024 13:57-0500 Diastolic blood pressure 80 mm[Hg] Minda Aichholz HEDIS COORDINATOR Work Phone: [facility] 07-04-2024 13:57-0500 Heart rate 96 /min Minda Aichholz HEDIS COORDINATOR Work Phone: [facility] 07-04-2024 13:57-0500 Respiratory rate 18 /min Minda Aichholz HEDIS COORDINATOR Work Phone: [facility] 07-04-2024 13:57-0500 SaO2% (BldA) [Mass fraction] 98 % Minda Yonathanhholz HEDIS COORDINATOR Work Phone: [facility] 07-04-2024 13:57-0500 Systolic blood pressure 104 mm[Hg] Minda Aichholz HEDIS COORDINATOR Work Phone: [facility] 06-05-2024 14:03-0500 Body height 170.2 cm Minda Aichholz HEDIS COORDINATOR Work Phone: [facility] 06-05-2024 14:03-0500 Body mass index (BMI) [Ratio] 29.98 kg/m2 Minda Yonathanhholz HEDIS COORDINATOR Work Phone: [facility] 06-05-2024 14:03-0500 Body temperature 98.1 [degF] Minda Yonathanhholz HEDIS COORDINATOR Work Phone: [facility] 06-05-2024 14:03-0500 Body weight 86.82 kg Minda Aichholz HEDIS COORDINATOR Work Phone: [facility] 06-05-2024 14:03-0500 Diastolic blood pressure 80 mm[Hg] Minda Aichholz HEDIS COORDINATOR Work Phone: [facility] 06-05-2024 14:03-0500 Heart rate 97 /min Minda Aichholz HEDIS COORDINATOR Work Phone: [facility] 06-05-2024 14:03-0500 Respiratory rate 18 /min Minda Yonathanhholz HEDIS COORDINATOR Work Phone: [facility] 06-05-2024 14:03-0500 SaO2% (BldA) [Mass fraction] 97 % Minda Aichholz HEDIS COORDINATOR Work Phone: [facility] 06-05-2024 14:03-0500 Systolic blood pressure 110 mm[Hg] Minda Aichholz HEDIS COORDINATOR Work Phone: [facility] 04-29-2024 17:23-0400 Body height 170.2 cm Minda Aichholz HEDIS COORDINATOR Work Phone: [facility] 04-29-2024 17:23-0400 Body mass index (BMI) [Ratio] 28.69 kg/m2 Minda Aichholz HEDIS COORDINATOR Work Phone: [facility] 04-29-2024 17:23-0400 Body temperature 97.5 [degF] Minda Aichholz HEDIS COORDINATOR Work Phone: [facility] 04-29-2024 17:23-0400 Body weight 83.1 kg Minda Aichholz HEDIS COORDINATOR Work Phone: [facility] 04-29-2024 17:23-0400 Diastolic blood pressure 76 mm[Hg] Minda Aichholz HEDIS COORDINATOR Work Phone: [facility] 04-29-2024 17:23-0400 Heart rate 71 /min Minda Aichholz HEDIS COORDINATOR Work Phone: [facility] 04-29-2024 17:23-0400 Respiratory rate 18 /min Minda Aichholz HEDIS COORDINATOR Work Phone: [facility] 04-29-2024 17:23-0400 SaO2% (BldA) [Mass fraction] 94 % Minda Aichholz HEDIS COORDINATOR Work Phone: [facility] 04-29-2024 17:23-0400 Systolic blood pressure 104 mm[Hg] Minda Aichholz HEDIS COORDINATOR Work Phone: [facility] 04-02-2024 13:17-0400 Body height 170.2 cm Mindajammie Mcmanushholz HEDIS COORDINATOR Work Phone: [facility] 04-02-2024 13:17-0400 Body mass index (BMI) [Ratio] 29.6 kg/m2 Minda Aichholz HEDIS COORDINATOR Work Phone: [facility] 04-02-2024 13:17-0400 Body temperature 97.81 [degF] Minda Yonathanhholz HEDIS COORDINATOR Work Phone: [facility] 04-02-2024 13:17-0400 Body weight 85.73 kg Minda Yonathanhholz HEDIS COORDINATOR Work Phone: [facility] 04-02-2024 13:17-0400 Diastolic blood pressure 80 mm[Hg] Minda Yonathanhholz HEDIS COORDINATOR Work Phone: [facility] 04-02-2024 13:17-0400 Heart rate 105 /min Minda Yonathanhholz HEDIS COORDINATOR Work Phone: [facility] 04-02-2024 13:17-0400 Respiratory rate 18 /min Minda Aichholz HEDIS COORDINATOR Work Phone: [facility] 04-02-2024 13:17-0400 SaO2% (BldA) [Mass fraction] 100 % Minda Yonathanhholz HEDIS COORDINATOR Work Phone: [facility] 04-02-2024 13:17-0400 Systolic blood pressure 106 mm[Hg] Minda Yonathanhholz HEDIS COORDINATOR Work Phone: [facility] 08-29-2023 12:33-0500 Body height 170.2 cm Cristian Szymanski MD Work Phone: [facility] 08-29-2023 12:33-0500 Body mass index (BMI) [Ratio] 31.16 kg/m2 Cristian Szymanski MD Work Phone: [facility] 08-29-2023 12:33-0500 Body weight 90.27 kg Cristian Szymanski MD Work Phone: [facility] [place] [facility] 08-29-2023 12:33-0500 Diastolic blood pressure 82 mm[Hg] Cristian Szymanski MD Work Phone: [facility] 08-29-2023 12:33-0500 Respiratory rate 18 /min Cristian Szymanski MD Work Phone: [facility] 08-29-2023 12:33-0500 Systolic blood pressure 142 mm[Hg] Cristian Szymanski MD Work Phone: [facility] 07-18-2022 13:58-0500 Diastolic blood pressure 88 mm[Hg] Oral Insole Rounder Work Phone: [facility] 07-18-2022 13:58-0500 Heart rate 101 /min [employer] Work Phone: [facility] 07-18-2022 13:58-0500 Respiratory rate 18 /min [employer] Work Phone: [facility] 07-18-2022 13:58-0500 SaO2% (BldA) [Mass fraction] 100 % [employer] Work Phone: [facility] 07-18-2022 13:58-0500 Systolic blood pressure 131 mm[Hg] [employer] Work Phone: [facility] 05-26-2022 08:10-0400 Respiratory rate 18 /min Janeth Deng MD [facility] 05-26-2022 07:15-0400 Body temperature 98.1 [degF] Janeth Deng MD [facility] Phone: [facility] 05-26-2022 07:15-0400 Diastolic blood pressure 83 mm[Hg] Janeth Deng MD Work Phone: [facility] 05-26-2022 07:15-0400 Heart rate 65 /min Janeth Deng MD Work Phone: [facility] 05-26-2022 07:15-0400 SaO2% (BldA) [Mass fraction] 98 % Janeth Deng MD Work Phone: [facility] [employer] 05-26-2022 07:15-0400 Systolic blood pressure 115 mm[Hg] Janeth Deng MD Work Phone: [facility] 05-24-2022 11:15-0400 Body height 170.2 cm Janeth Deng MD Work Phone: [facility] [employer] 05-24-2022 11:15-0400 Body mass index (BMI) [Ratio] 25.84 kg/m2 Janeth Deng MD Work Phone: [facility] 05-24-2022 11:15-0400 Body weight 74.84 kg Janeth Deng MD Work Phone: [facility] 05-24-2022 09:00-0400 Heart rate 99 /min Angie Valles MD Work Phone: [facility] [employer] 05-24-2022 09:00-0400 Respiratory rate 21 /min Angie Valles MD Work Phone: [facility] [employer] 05-24-2022 08:15-0400 Diastolic blood pressure 83 mm[Hg] Angie Valles MD Work Phone: [facility] [employer] 05-24-2022 08:15-0400 Systolic blood pressure 132 mm[Hg] Angie Valles MD Work Phone: [facility] [employer] 05-24-2022 03:30-0400 SaO2% (BldA) [Mass fraction] 96 % Angie Valles MD Work Phone: [facility] [employer] 05-23-2022 22:41-0400 Body temperature 98.6 [degF] Angie Valles MD Work Phone: [facility] [employer] 06-18-2021 06:43-0500 Body temperature 97.39 [degF] Benito Oneal MD Work Phone: [employer] 06-18-2021 06:43-0500 Diastolic blood pressure 65 mm[Hg] Benito Oneal MD Work Phone: [employer] 06-18-2021 06:43-0500 Heart rate 58 /min Benito Oneal MD Work Phone: [employer] 06-18-2021 06:43-0500 Respiratory rate 16 /min Benito Oneal MD Work Phone: [employer] 06-18-2021 06:43-0500 SaO2% (BldA) [Mass fraction] 98 % Benito Oneal MD Work Phone: [employer] 06-18-2021 06:43-0500 Systolic blood pressure 113 mm[Hg] Benito Oneal MD Work Phone: [employer] 06-18-2021 05:15-0500 Body mass index (BMI) [Ratio] 25.48 kg/m2 Benito Oneal MD Work Phone: [employer] 06-18-2021 05:15-0500 Body weight 73.8 kg Benito Oneal MD Work Phone: [employer] 06-15-2021 06:42-0500 Body height 170.2 cm Benito Oneal MD Work Phone: [employer] Encounters Encounter Date Encounter Type Care Provider Facility Start: 12-17-2024 End: 12-17-2024 Office outpatient visit 25 minutes Minda Yeboah NP Work Phone: [facility] Comment on above: Hematemesis, unspeci fied whether nausea present (Primary Dx); Gastroesophageal reflux disease, unspecified whether esophagitis present; Rheumatoid arthritis with positive rheumatoid factor, involving unspecified site (CMS/HCC); Cigarette nicotine dependence without complication; Encounter for screening mammogram for malignant neoplasm of breast; Diarrhea, unspecified type; Multiple thyroid nodules (CMS/HCC); Obesity with body mass index (BMI) of 30.0 to 39.9 Start: 12-17-2024 End: 12-17-2024 Orders Only Minda Yeboah NP Work Phone: [facility] Comment on above: Multiple thyroid nod ules (CMS/HCC) (Primary Dx) Start: 10-17-2024 End: 10-17-2024 ambulatory CRISTIAN SZYMANSKI [facility] Start: 10-17-2024 End: 10-17-2024 Office outpatient visit 25 minutes Cristian Szymanski MD Work Phone[facility] Comment on above: 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); Inflammatory arthritis; Multiple joint pain; Degeneration of intervertebral disc of lumbar region with discogenic back pain; Medication monitoring encounter; DDD (degenerative disc disease), cervical Start: 10-14-2024 End: 10-14-2024 ambulatory MINDA YEBOAH Not Available Start: 09-16-2024 End: 09-16-2024 Refill Minda Yeboah HEDIS COORDINATOR Work Phone: [facility] Comment on above: Simple chronic bronc hitis (CMS/HCC); Osteoporosis, unspecified osteoporosis type, unspecified pathological fracture presence (CMS/HCC); Major depressive disorder with single episode, in remission (HCC) (CMS/HCC); Mixed hyperlipidemia (CMS/HCC); Vitamin D deficiency; Environmental and seasonal allergies; Hypothyroidism (acquired) (CMS/HCC); Hypomagnesemia; Gastroesophageal reflux disease, unspecified whether esophagitis present; Anxiety and depression (CMS/HCC); MARY (generalized anxiety disorder) (CMS/HCC); Seizures (CMS/HCC) Start: 08-25-2024 End: 08-26-2024 Refill Minda Yeboah HEDIS COORDINATOR Work Phone: [facility] Comment on above: Simple chronic bronc hitis (CMS/HCC) Start: 08-21-2024 End: 08-21-2024 Emergency department patient visit MINDA YEBOAH [facility] Start: 08-19-2024 End: 08-19-2024 Office outpatient visit 25 minutes Cristian [facility]zymanski MD [facility] Comment on above: 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); Inflammatory arthritis; Multiple joint pain; Degeneration of intervertebral disc of lumbar region with discogenic back pain; Medication monitoring encounter; DDD (degenerative disc disease), cervical Start: 08-19-2024 End: 08-19-2024 ambulatory [facility] Start: 07-04-2024 End: 07-04-2024 Office outpatient visit 25 minutes Minda Yeboah HEDIS COORDINATOR Work Phone: [facility] Comment on above: Anxiety and depressi on (CMS/HCC) (Primary Dx); Abnormal weight gain; Tobacco user; Osteoporosis, unspecified osteoporosis type, unspecified pathological fracture presence (CMS/HCC); Mixed hyperlipidemia (CMS/HCC); Vitamin D deficiency; Environmental and seasonal allergies; Hypothyroidism (acquired) (CMS/HCC); Hypomagnesemia; Gastroesophageal reflux disease, unspecified whether esophagitis present; MARY (generalized anxiety disorder) (CMS/HCC); Major depressive disorder with single episode, in remission (HCC) (CMS/HCC); Seizures (CMS/HCC); Simple chronic bronchitis (CMS/HCC); Chronic obstructive pulmonary disease, unspecified COPD type (CMS/HCC); Depression with anxiety Start: 07-04-2024 End: 07-04-2024 ambulatory MINDA YEBOAH Not Available Start: 06-12-2024 End: 06-12-2024 Refill Minda Yeboah HEDIS COORDINATOR Work Phone: [facility] Comment on above: Major depressive dis order with single episode, in remission (HCC) (CMS/HCC) Start: 06-05-2024 End: 06-05-2024 Bamboo flowsheet Minda Yeboah HEDIS COORDINATOR Work Phone: [facility] Start: 06-05-2024 End: 06-05-2024 Bamboo flowsheet Minda Yeboah HEDIS COORDINATOR Work Phone: [facility] Start: 06-05-2024 End: 06-05-2024 Office outpatient visit 25 minutes Minda Yeboah HEDIS COORDINATOR Work Phone: [facility] Comment on above: Abnormal weight gain (Primary Dx); Tobacco user; MARY (generalized anxiety disorder) (CMS/HCC); Obesity with body mass index (BMI) of 30.0 to 39.9; Constipation, unspecified constipation type Start: 06-05-2024 End: 06-05-2024 ambulatory MINDA AICHHOLZ Not Available Start: 05-24-2024 End: 05-24-2024 Refill Minda Aichholz HEDIS COORDINATOR Work Phone: [facility] Comment on above: Vitamin D deficiency ; Environmental and seasonal allergies Start: 04-29-2024 End: 04-29-2024 Office outpatient visit 25 minutes Mindajammie Ahmadiz HEDIS COORDINATOR Work Phone: [facility] Comment on above: Hypothyroidism (acqu ired) (CMS/HCC) (Primary Dx); Nonintractable epilepsy without status epilepticus, unspecified epilepsy type (CMS/HCC); Seizures (CMS/HCC); Osteoporosis, unspecified osteoporosis type, unspecified pathological fracture presence (CMS/HCC); Depression with anxiety; MARY (generalized anxiety disorder) (CMS/HCC); Rheumatoid arthritis, involving unspecified site, unspecified whether rheumatoid factor present (CMS/HCC); Tobacco user; Abnormal weight gain; Obesity with body mass index (BMI) of 30.0 to 39.9 Start: 04-29-2024 End: 04-29-2024 ambulatory MINDA AICHHOLZ Not Available Start: 04-29-2024 End: 04-29-2024 Bamboo flowsheet Minda Aichholz HEDIS COORDINATOR Work Phone: [facility] Start: 04-29-2024 End: 04-29-2024 Bamboo flowsheet Minda Aichholz HEDIS COORDINATOR Work Phone: [facility] Start: 04-25-2024 End: 04-25-2024 Refill Minda Aichholz HEDIS COORDINATOR Work Phone: [facility] Comment on above: Osteoporosis, unspec ified osteoporosis type, unspecified pathological fracture presence (CMS/HCC) (Primary Dx) Start: 04-03-2024 End: 04-03-2024 Orders Only Minda Aichholz HEDIS COORDINATOR Work Phone: [facility] Comment on above: Hypothyroidism (acqu ired) (CMS/HCC) (Primary Dx) Start: 04-02-2024 End: 04-02-2024 Bamboo flowsheet Minda Edilia HEDIS COORDINATOR Work Phone: [facility] Start: 04-02-2024 End: 04-03-2024 Bamboo flowsheet Minda Hickeyjames HEDIS COORDINATOR Work Phone: [facility] Start: 04-02-2024 End: 04-03-2024 Clinisync Result Encounter Minda Edilia HEDIS COORDINATOR Work Phone: [facility] External Department Unsolicited Start: 04-02-2024 End: 04-02-2024 Office outpatient visit 25 minutes Minda Yeboah HEDIS COORDINATOR Work Phone: [facility] Comment on above: MARY (generalized anx iety disorder) (CMS/HCC) (Primary Dx); Simple chronic bronchitis (CMS/HCC); Seizures (CMS/HCC); Gastroesophageal reflux disease, unspecified whether esophagitis present; Osteoporosis, unspecified osteoporosis type, unspecified pathological fracture presence (CMS/HCC); Hypothyroidism (acquired) (CMS/HCC); Anxiety and depression (CMS/HCC); Rheumatoid arthritis, involving unspecified site, unspecified whether rheumatoid factor present (CMS/[facility]); Tobacco user; Migraine without status migrainosus, not intractable, unspecified migraine type (CMS/[facility]); Major depressive disorder with single episode, in remission (HCC) (CMS/[facility]); Mixed hyperlipidemia (CMS/[facility]); Vitamin D deficiency; Environmental and seasonal allergies; Hypomagnesemia; Osteoarthritis of spine with radiculopathy, lumbosacral region Start: 04-02-2024 End: 04-02-2024 ambulatory MINDA EDILIA Not Available Start: 03-26-2024 End: 03-26-2024 Refill Minda Edilia HEDIS COORDINATOR Work Phone: [facility] Comment on above: Obesity with body ma ss index (BMI) of 30.0 to 39.9 (Primary Dx) Start: 03-22-2024 End: 03-22-2024 Orders Only Minda Yeboah HEDIS COORDINATOR Work Phone: [facility] Comment on above: Hypothyroidism (acqu ired) (CMS/HCC) (Primary Dx); Mixed hyperlipidemia ([facility]); Hypomagnesemia; Osteoporosis, unspecified osteoporosis type, unspecified pathological fracture presence ([facility]) Major depressive dis order with single episode, in remission ([facility]) ([facility]); Mixed hyperlipidemia ([facility]); Anxiety; Vitamin D deficiency; Environmental and seasonal allergies; Hypothyroidism (acquired) ([facility]); Gastroesophageal reflux disease, unspecified whether esophagitis present; Anxiety and depression ([facility]); MARY (generalized anxiety disorder) ([facility]); Seizures ([facility]); Simple chronic bronchitis ([facility]) Start: 03-19-2024 End: 03-20-2024 Refill Yasmin Patel CNA [facility] Comment on above: DDD (degenerative di sc disease), cervical Start: 02-13-2024 End: 02-13-2024 Refill Alan Rosales CMA [facility] Comment on above: DDD (degenerative di sc disease), cervical Start: 01-22-2024 End: 01-22-2024 ambulatory MINDA AICHHOLZ Not Available Start: 12-27-2023 End: 12-27-2023 ambulatory CRISTIAN SZYMANSKI [facility] Start: 12-27-2023 End: 12-27-2023 Office outpatient visit 25 minutes Cristian Szymanski MD Work Phone: [facility] Comment on above: Undifferentiated con nective tissue disease ([facility]) (Primary Dx); Fibromyalgia; Trochanteric bursitis of both hips; DDD (degenerative disc disease), cervical; DDD (degenerative disc disease), lumbar; Medication monitoring encounter Start: 12-22-2023 ambulatory [facility] Start: 12-18-2023 End: 12-18-2023 ambulatory MINDA AICHHOLZ Not Available Start: 08-29-2023 End: 08-29-2023 Office outpatient visit 25 minutes Cristian Szymanski MD Work Phone: [facility] Comment on above: Undifferentiated con nective tissue disease ([facility]) (Primary Dx); Rheumatoid factor positive; Fibromyalgia; Trochanteric bursitis of both hips; DDD (degenerative disc disease), cervical; DDD (degenerative disc disease), lumbar; Medication monitoring encounter Start: 12-23-2022 ambulatory CHERYL YEBOAH Facil ity:[facility] Start: 12-22-2022 End: 12-23-2022 ambulatory CHERYL YEBOAH Facility:[facility] Start: 12-13-2022 End: 12-14-2022 ambulatory CHERYL YEBOAH Facility:[facility] Start: 12-01-2022 ambulatory CHERYL YEBOAH Facil ity:[facility] Start: 11-23-2022 End: 11-24-2022 ambulatory CHERYL YEBOAH Facility:[facility] Start: 11-14-2022 ambulatory KRYSTIAN MUNOZ Facility :[facility] Start: 10-20-2022 End: 10-21-[address] SYRAJINDER Facility:[facility] Start: 08-10-2022 End: 08-11-[address] [facility] Start: 07-18-2022 End: 07-22-2022 ambulatory UNKNOWN PROVIDER Facility:[facility] Start: 07-18-2022 End: 07-18-2022 Patient encounter procedure Oral Surgery Insole Rounder Work Phone: [facility] Oral Surgery Comment on above: 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 (Primary Dx) Start: 07-05-2022 End: 07-06-2022 ambulatory JEVON DUARTE Facility:[facility] Start: 06-21-2022 End: 06-22-2022 ambulatory JEVON DUARTE Facility:[facility] Start: 06-02-2022 End: 06-03-2022 ambulatory CHERYL YEBOAH Facility:[facility] Start: 05-24-2022 End: 05-26-2022 Evaluation and management of inpatient MINDA YEBOAH [facility] Start: 05-24-2022 End: 05-26-2022 Evaluation and management of inpatient Janeth Deng MD Work Phone: [facility] Comment on above: Multiple fractures o f foot, left, closed, initial encounter (Primary Dx) Start: 05-23-2022 End: 05-24-2022 Emergency department patient visit Angie Valles MD Work Phone: [facility] ED Comment on above: Seizure (HCC) (Prima ry Dx); Closed fracture of left foot, initial encounter; Closed fracture of distal end of left fibula, unspecified fracture morphology, initial encounter Start: 06-14-2021 End: 06-18-2021 Evaluation and management of inpatient Benito Abdoulaye Oneal MD Work Phone[facility] Comment on above: Intractable vomiting with nausea, unspecified vomiting type (Primary Dx); COVID; Pneumonia of right lower lobe due to infectious organism; Dehydration Procedures Date Procedure Procedure Detail Performing Clinician Start: 08-19-2024 Cyclic citrullinated peptide antibody CRISTIAN SZYMANSKI Comment on above: Result Comment: Interpretation-------- <3 Negative >=3 Positive Performed By: #### C MP, 1988-5, 89143-2, CBC, 23035-4, 27495-7 #### [facility] ([id number]) [address] [place] [address], [address] [place] [address] Start: 04-02-2024 ALL LIPID PROFILE (FASTING) Minda Yeboah HEDIS COORDINATOR Work Phone: Start: 04-02-2024 ALL MAGNESIUM Minda ramirez HEDIS COORDINATOR Work Phone: Start: 04-02-2024 ALL THYROID STIM HORMONE Minda Yeboah HEDIS COORDINATOR Work Phone: Start: 04-02-2024 [facility] CMP (CMP) (FOR [facility] USE) Minda Yeboah HEDIS COORDINATOR Work Phone: Start: 09-19-2023 Microscopic observat ion [Identifier] in Cervix by Cyto stain Minda Yeboah HEDIS COORDINATOR Work Phone: Start: 08-17-2023 Mammography Minda dela cruz HEDIS COORDINATOR Work Phone: Start: 05-26-2022 Anion gap [Moles/Vol] E negro Carrillo MD Work Phone: Start: 05-26-2022 Basic metabolic pane l calcium total Dhruv Carrillo MD Work Phone: Start: 05-26-2022 GLOMERULAR FILTRATIO N RATE, ESTIMATED Dhruv Carrillo MD Work Phone: Start: 05-25-2022 Blood count complete automated Evelio Dennis MD Work Phone: Start: 05-24-2022 Anion gap [Moles/Vol] U nknown Provider Result Start: 05-24-2022 BASIC METABOLIC PANE L W/ REFLEX TO MG FOR LOW K Evelio Dennis MD Work Phone: Start: 05-24-2022 GLOMERULAR FILTRATIO N RATE, ESTIMATED Unknown Provider Result Start: 05-24-2022 EEG Dhruv villareal MD Work Phone: Start: 05-24-2022 Ecg routine ecg w/le ast 12 lds i&r only Dhruv Carrillo MD Work Phone: Start: 05-24-2022 Anion gap [Moles/Vol] E negro Carrillo MD Work Phone: Start: 05-24-2022 Blood count complete auto&auto difrntl wbc Dhruv Carrillo MD Work Phone: Start: 05-24-2022 Drug screen quantita tive topiramate Dhruv Carrillo MD Work Phone: Start: 05-24-2022 GLOMERULAR FILTRATIO N RATE, ESTIMATED Dhruv Carrillo MD Work Phone: Start: 05-24-2022 Ct lower extremity w /o contrast material Angie Valles MD Work Phone: Start: 05-24-2022 Ct head/brain w/o co ntrast material Angie Valles MD Work Phone: Start: 05-23-2022 Ecg routine ecg w/le ast 12 lds w/i&r Angie Valles MD Work Phone: Start: 05-23-2022 End: 05-23-2022 Radex ankle complete minimum 3 views Angie Valles MD Work Phone: Start: 05-23-2022 Assay of ethanol Az Valles MD Work Phone: Start: 05-23-2022 Comprehensive metabo lic panel Angie Valles MD Work Phone: Start: 05-23-2022 IMMATURE PLATELET FRACTION Angie Valles MD Work Phone: Start: 06-18-2021 Fibrin dgradj produc ts d-dimer quantitative Alecia Pretty EXPERIENCE DESIGN DIRECTOR - PLASTIC SEWER Work Phone: Start: 06-18-2021 IMMATURE PLATELET FRACTION Alecia Pretty EXPERIENCE DESIGN DIRECTOR - PLASTIC SEWER Work Phone: Start: 06-18-2021 Rhythm ecg 1-3 leads w/interpretation & report Unknown Provider Result Start: 06-17-2021 End: 06-18-2021 Rhythm ecg 1-3 leads w/interpretation & report Unknown Provider Result Start: 06-17-2021 Assay of ferritin Kasey Pretty EXPERIENCE DESIGN DIRECTOR - PLASTIC SEWER Work Phone: Start: 06-17-2021 C-reactive protein Francoise Pretty EXPERIENCE DESIGN DIRECTOR - PLASTIC SEWER Work Phone: Start: 06-17-2021 IMMATURE PLATELET FRACTION Alecia Pretty EXPERIENCE DESIGN DIRECTOR - PLASTIC SEWER Work Phone: Start: 06-16-2021 Mri brain brain stem w/o w/contrast material Alecia Pretty EXPERIENCE DESIGN DIRECTOR - PLASTIC SEWER Work Phone: Start: 06-16-2021 End: 06-16-2021 Assay of ferritin Alecia Pretty APR N - PLASTIC SEWER Work Phone: Start: 06-16-2021 C-reactive protein Francoise Pretty EXPERIENCE DESIGN DIRECTOR - PLASTIC SEWER Work Phone: Start: 06-16-2021 End: 06-17-2021 Rhythm ecg 1-3 leads w/interpretation & report Unknown Provider Result Start: 06-16-2021 Rhythm ecg 1-3 leads w/interpretation & report Unknown Provider Result Start: 06-15-2021 Lactate dehydrogenase ldh Leonila Sampson EXPERIENCE DESIGN DIRECTOR - PLASTIC SEWER Work Phone: Start: 06-15-2021 Assay of ammonia Yue Pretty EXPERIENCE DESIGN DIRECTOR - PLASTIC SEWER Work Phone: Start: 06-15-2021 C-reactive protein Francoise Pretty EXPERIENCE DESIGN DIRECTOR - PLASTIC SEWER Work Phone: Start: 06-15-2021 Urinalysis microscopic only Alecia Pretty EXPERIENCE DESIGN DIRECTOR - PLASTIC SEWER Work Phone: Start: 06-15-2021 Urnls dip stick/tabl et rgnt auto w/o microscopy Alecia Pretty EXPERIENCE DESIGN DIRECTOR - PLASTIC SEWER Work Phone: Start: 06-15-2021 Assay of magnesium Benito Oneal MD Work Phone: Start: 06-14-2021 Intermittent pulse oximetry Benito Oneal MD Work Phone: Start: 06-14-2021 End: 06-14-2021 CULTURE, BLOOD 1 Gricelda Lal PA-C Work Phone: Start: 06-14-2021 Radiologic exam ches t single view Gricelda Lal PA-C Work Phone: Start: 06-14-2021 Ct head/brain w/o co ntrast material Gricelda Lal PA-C Work Phone: Start: 06-14-2021 Ct abdomen & pelvis w/contrast material Gricelda Lal PA-C Work Phone: Start: 06-14-2021 GLUCOSE, WHOLE BLOOD Ran Richardson MD Work Phone: Start: 06-14-2021 End: 06-15-2021 Ecg routine ecg w/least 12 lds i&r only Gricelda Lal PA-C Work Phone: Start: 06-14-2021 End: 06-14-2021 Assay of amylase Gricelda Lal PA-C Work Phone: Start: 06-14-2021 Lactate [Moles/volum e] in Serum or Plasma Gricelda Lal PA-C Work Phone: Start: 06-14-2021 COVID-19, RAPID Gricelda L R america PA-C Work Phone: Start: 12-17-2009 Colonoscopy Minda dela cruz NP Work Phone: Plan of Treatment Date Care Activity Detail Author Start: 09-21-2026 Screening for malign ant neoplasm of colon [facility] Start: 09-19-2026 Screening for malign ant neoplasm of cervix [facility] Start: 10-17-2025 Adult BMI Screening Adult BMI Screen ing [facility] Start: 08-19-2025 Adult BMI Screening Adult BMI Screen ing [facility] Start: 01-16-2025 End: 01-16-2025 Patient encounter procedure 01/16/2025 12:30 PM EDT Office Visit [facility], A Department of [address] [phone] Cristian Szymanski MD [address] [place] [id number] [facility], A Department of [facility] Start: 01-13-2025 End: 01-13-2025 Patient encounter procedure 01/13/2025 1:00 PM EDT Office Visit [facility] [address] [place] [address] Minda Yeboah, ISA [address] [place] [phone] [facility] Start: 12-17-2024 End: 12-17-2024 Patient encounter procedure 12/17/2024 4:00 PM EDT Office Visit [facility] [address] [place] [phone] Minda Yeboah, ISA [address] [place] [phone] [facility] Start: 12-17-2024 End: 12-17-2025 Clostridioides difficile toxin A+B tcdA+tcdB genes [Presence] in Stool by KAYLEEN with probe detection Clostridium difficile,EIA Microbiology Routine Diarrhea, unspecified type Expected: 12/17/2024 (Approximate), Expires: 12/17/2025 [facility] Comment on above: Expected: 12/17/2024 (Approximate), Expires: 12/17/2025 Start: 12-17-2024 End: 12-17-2025 Measurement of occult blood in single stool specimen Occult blood x 1, stool Lab Routine Diarrhea, unspecified type Expected: 12/17/2024 (Approximate), Expires: 12/17/2025 [facility] Work Phone: Comment on above: Expected: 12/17/2024 (Approximate), Expires: 12/17/2025 Start: 12-17-2024 End: 12-17-2025 US Thyroid gland US thyroid Imaging Routine Multiple thyroid nodules (CMS/HCC) Expected: 12/17/2024 (Approximate), Expires: 12/17/2025 [facility] Work Phone: Comment on above: Expected: 12/17/2024 (Approximate), Expires: 12/17/2025 Start: 10-01-2024 End: 10-01-2024 Patient encounter procedure 10/01/2024 1:20 PM EST Office Visit [facility] [address] [place] [phone] Minda Yeboah NP [address] [place] [address] [facility] Start: 10-01-2024 End: 10-01-2024 Patient encounter procedure 10/01/2024 11:30 AM EST Office Visit [facility] [address] [phone] Cristian Szymanski MD [address] [address] [facility] Start: 08-29-2024 Adult BMI Screening Adult BMI Screen ing [facility] Start: 08-17-2024 Screening for malign ant neoplasm of breast Mammogram [facility] Start: 07-04-2024 End: 07-04-2024 Patient encounter procedure 07/04/2024 2:00 PM EST Office Visit [facility] [address] [place] [phone] Minda Yeboah, ISA [address] [place] [phone] [facility] Start: 06-26-2024 End: 06-26-2024 Patient encounter procedure 06/26/2024 12:30 PM EST Office Visit [facility] [address] [phone] Cristian Szymanski MD [address] [address] [facility] Start: 06-05-2024 End: 06-05-2024 Patient encounter procedure 06/05/2024 2:00 PM EST Office Visit [facility] [address] [place] [phone] Minda Yeboah, ISA [address] [place] [phone] Tobacco user (Primary Dx) [facility] Comment on above: Tobacco user (Primar y Dx) Start: 05-29-2024 End: 05-29-2024 Patient encounter procedure 05/29/2024 2:00 PM EDT Office Visit [facility] [address] [place] [phone] Minda Yeboah, ISA [address] [place] [phone] [facility] Start: 05-06-2024 End: 05-06-2024 Patient encounter procedure 05/06/2024 1:40 PM EDT Office Visit [facility] [address] [place] [address] Minda Yeboah, HEDIS COORDINATOR [address] [place] [phone] [facility] Start: 05-03-2024 End: 04-03-2025 Thyrotropin [Units/volume] in Serum or Plasma TSH Lab Routine Hypothyroidism (acquired) ([facility]) Expected: 05/03/2024 (Approximate), Expires: 04/03/2025 [facility] Work Phone: Comment on above: Expected: 05/03/2024 (Approximate), Expires: 04/03/2025 Start: 05-03-2024 End: 04-03-2025 Thyroxine (T4) free [Mass/volume] in Serum or Plasma T4, free Lab Routine Hypothyroidism (acquired) ([facility]) Expected: 05/03/2024 (Approximate), Expires: 04/03/2025 [facility] Comment on above: Expected: 05/03/2024 (Approximate), Expires: 04/03/2025 Start: 04-29-2024 End: 04-29-2024 Patient encounter procedure 04/29/2024 5:30 PM EDT Office Visit [facility] [address] [place] [address] Minda Yeboah, HEDIS COORDINATOR [address] [place] [phone] Arrived [facility] Comment on above: Arrived Start: 04-09-2024 End: 04-09-2024 Patient encounter procedure 04/09/2024 1:20 PM EDT Office Visit [facility] [address] [place] [phone] Minda Yeboah, HEDIS COORDINATOR [address] [place] [phone] [facility] Start: 04-02-2024 End: 04-02-2024 Patient encounter procedure 04/02/2024 1:20 PM EDT Office Visit [facility] [address] [place] [phone] Minda Yeboah, HEDIS COORDINATOR [address] [place] [phone] [facility] Comment on above: Arrived Start: 03-31-2024 Influenza vaccination Influenza Vacc ine [facility] Start: 03-22-2024 End: 03-22-2025 Comprehensive metabolic 2000 panel - Serum or Plasma Comprehensive metabolic panel Lab Routine Osteoporosis, unspecified osteoporosis type, unspecified pathological fracture presence (CMS/HCC) Expected: 03/22/2024 (Approximate), Expires: 03/22/2025 [facility] Comment on above: Expected: 03/22/2024 (Approximate), Expires: 03/22/2025 Start: 03-22-2024 End: 03-22-2025 Lipid 1996 panel - Serum or Plasma Lipid panel Lab Routine Hypothyroidism (acquired) (CMS/HCC) Mixed hyperlipidemia (CMS/HCC) Expected: 03/22/2024 (Approximate), Expires: 03/22/2025 [facility] Comment on above: Expected: 03/22/2024 (Approximate), Expires: 03/22/2025 Start: 03-22-2024 End: 03-22-2025 Magnesium [Mass/volume] in Serum or Plasma Magnesium Lab Routine Hypomagnesemia Expected: 03/22/2024 (Approximate), Expires: 03/22/2025 [facility] Comment on above: Expected: 03/22/2024 (Approximate), Expires: 03/22/2025 Start: 03-22-2024 End: 03-22-2025 Thyrotropin [Units/volume] in Serum or Plasma TSH Lab Routine Hypothyroidism (acquired) ([facility]/HCC) Expected: 03/22/2024 (Approximate), Expires: 03/22/2025 [facility] Work Phone: Comment on above: Expected: 03/22/2024 (Approximate), Expires: 03/22/2025 Start: 03-22-2024 End: 03-22-2025 Thyroxine (T4) free [Mass/volume] in Serum or Plasma T4, free Lab Routine Hypothyroidism (acquired) ([facility]) Expected: 03/22/2024 (Approximate), Expires: 03/22/2025 [facility] [employer] Comment on above: Expected: 03/22/2024 (Approximate), Expires: 03/22/2025 Start: 12-27-2023 End: 12-27-2023 Patient encounter procedure 12/27/2023 12:00 PM EDT Office Visit [facility] [address] [phone] Cristian Szymanski MD [address] [address] [facility] Start: 08-29-2023 End: 08-29-2024 XR Cervical spine 4 or 5 Views X-ray spine cervical 4 or 5 views Imaging Routine DDD (degenerative disc disease), cervical Expected: 08/29/2023, Expires: 08/29/2024 [facility] Work Phone: Comment on above: Expected: 08/29/2023 , Expires: 08/29/2024 Start: 08-29-2023 End: 08-29-2024 XR Lumbar spine 2 or 3 Views X-ray spine lumbar 2 or 3 views Imaging Routine DDD (degenerative disc disease), lumbar Expected: 08/29/2023, Expires: 08/29/2024 [facility] Comment on above: Expected: 08/29/2023 , Expires: 08/29/2024 Start: 03-31-2023 Influenza vaccination Influenza Vacc ine [facility] Start: 09-23-2022 End: 09-23-2022 Patient encounter procedure 09/23/2022 Office Visit Oral Surgery Krystian Munoz DMD, MD [address] [place] [address] [facility] Oral Surgery Start: 04-30-2022 Influenza vaccination Influenza Vacc ine (#1) [facility] Start: 02-28-2022 Influenza vaccination Flu vaccine (# 1) [facility] Start: 03-31-2021 Influenza vaccination Flu vaccine (# 1) [facility] Start: 12-18-2019 Screening for malign ant neoplasm of colon Colonoscopy [facility] Start: 11-01-2017 Administration of varicella zoster vaccine Zoster (Shingles) Vaccine (1 of 2) [facility] Start: 11-01-2017 Measurement of occul t blood in single stool specimen FIT [facility] Start: 11-01-2017 Screening for malign ant neoplasm of breast Breast cancer screen [facility] Start: 11-01-2017 Screening for malign ant neoplasm of colon CRC Screening [facility] Start: 11-01-2017 Screening for malign ant neoplasm of lung Low dose CT lung screening [facility] Start: 11-01-2017 Shingles (RZV) Vacci ne (1 of 2) Shingles (RZV) Vaccine (1 of 2) [facility] Start: 11-01-2017 Shingles Vaccine (1 of 2) Shingles Vaccine (1 of 2) [facility] Start: 11-01-2012 Cholesterol [Mass/volume] in Serum or Plasma Cholesterol [facility] Start: 11-01-2012 Screening for malign ant neoplasm of colon [facility] Start: 2007 Screening for malign ant neoplasm of breast Mammography [facility] Start: 11-01-2002 Diabetes screen Diabetes screen [facility] Start: 11-01-1997 Screening for malign ant neoplasm of cervix [facility] Start: 11-01-1988 Screening for malign ant neoplasm of cervix Pap smear [facility] Start: 11-01-1986 DTaP,Tdap and Td Vaccines (1 - Tdap) DTaP,Tdap and Td Vaccines (1 - Tdap) [facility] Start: 11-01-1986 DTaP/Tdap/Td vaccine (1 - Tdap) DTaP/Tdap/Td vaccine (1 - Tdap) [facility] Start: 11-01-1985 Adult BMI Follow Up Plan Adult BMI Follow Up Plan [facility] Start: 11-01-1985 Hepatitis C screening B ON [facility] Start: 11-01-1985 Tetanus + diphtheria + acellular pertussis vaccine (product) Tdap Booster [facility] Start: 11-01-1982 HIV screening [facility] Start: 1979 COVID-19 Vaccine (1) COVID-19 Vaccin e (1) [facility] Start: 1979 Depression Screen Depression Screen [facility] Start: 1979 Depression Screening Depression Scre ening [facility] Start: 1979 Tobacco Screening Tobacco Screening [facility] Start: 11-01-1977 Lipid panel [facility] Start: 11-01-1973 Pneumococcal 0-64 ye ars Vaccine (1 - PCV) Pneumococcal 0-64 years Vaccine (1 - PCV) [facility] Start: 11-01-1973 Pneumococcal 0-64 ye ars Vaccine (1 of 2 - PPSV23) Pneumococcal 0-64 years Vaccine (1 of 2 - PPSV23) [facility] Start: 05-03-1968 COVID-19 Vaccine (#1) COVID-19 Vacci ne (#1) [facility] Start: 1967 Hepatitis C screening Hepatitis C sc reen [facility] Start: 1967 Screening for malign ant neoplasm of colon [facility] Start: 1967 Thyroid stimulating hormone measurement TSH [facility] C reactive protein [Mass/volume] in Serum or Plasma C-reactive protein Lab Routine Inflammatory arthritis 08/19/2024 2:56 PM EST [facility] C-reactive protein C-Reactive Pr otein Lab Routine Daily until discontinued starting 06/15/2021, 3 completed [facility] Work Phone: Comment on above: Daily until disconti nued starting 06/15/2021, 3 completed C-reactive protein C-Reactive Pr otein Lab Routine 06/18/2021 6:01 AM EST [facility] [employer] Phone: End: 08-19-2025 C-reactive protein C-reactive protein Lab Routine Inflammatory arthritis 1 Occurrences starting 08/19/2024 until 08/19/[address] [facility] Comment on above: 1 Occurrences starti ng 08/19/2024 until 08/19/2025 End: 10-17-2025 C-reactive protein C-reactive protein Lab Routine Medication monitoring encounter 1 Occurrences starting 10/17/2024 until 10/17/[facility] 1 Occurrences starti ng 10/17/2024 until 10/17/2025 End: 08-19-2025 CBC panel - Blood by Automated count CBC Lab Routine Medication monitoring encounter 1 Occurrences starting 08/19/2024 until 08/19/2025 [facility] Comment on above: 1 Occurrences starti ng 08/19/2024 until 08/19/2025 CBC panel - Blood by Automated count CBC without diff Lab Routine Medication monitoring encounter 08/19/2024 2:56 PM [facility] [employer] End: 10-17-2025 CBC panel - Blood by Automated count CBC Lab Routine Medication monitoring encounter 1 Occurrences starting 10/17/2024 until 10/17/2025 [facility] Comment on above: 1 Occurrences starti ng 10/17/2024 until 10/17/2025 CBC W Auto Different ial panel - Blood CBC Auto Differential Lab Routine Daily until discontinued starting 06/16/2021, 3 completed [employer] Work Phone: Comment on above: Daily until disconti nued starting 06/16/2021, 3 completed End: 08-19-2025 CCP Ab CCP Ab Lab Routine Inflammatory arthritis 1 Occurrences starting 08/19/2024 until 08/19/2025 [facility] Comment on above: 1 Occurrences starti ng 08/19/2024 until 08/19/2025 End: 08-19-2025 Comprehensive metabolic 2000 panel - Serum or Plasma Comprehensive metabolic panel Lab Routine Medication monitoring encounter 1 Occurrences starting 08/19/2024 until 08/19/2025 [facility] Comment on above: 1 Occurrences starti ng 08/19/2024 until 08/19/2025 Comprehensive metabo lic 2000 panel - Serum or Plasma Comprehensive metabolic panel Lab Routine Medication monitoring encounter 08/19/2024 2:56 PM [facility] [employer] End: 10-17-2025 Comprehensive metabolic 2000 panel - Serum or Plasma Comprehensive metabolic panel Lab Routine Medication monitoring encounter 1 Occurrences starting 10/17/2024 until 10/17/2025 [employer] Comment on above: 1 Occurrences starti ng 10/17/2024 until 10/17/2025 Comprehensive Metabo lic Panel w/ Reflex to MG Comprehensive Metabolic Panel w/ Reflex to MG Lab Routine Daily until discontinued starting 06/16/2021, 3 completed [employer] Phone: Comment on above: Daily until disconti nued starting 06/16/2021, [address] FOOT LEFT WO CONTRAST CT FOOT LEFT WO CONTRAST Imaging STAT 05/24/2022 12:29 AM EDT [id number] Work Phone: Culture, Blood 1 [employer] Work Phone: Cyclic citrullinated peptide IgG Ab [Units/volume] in Serum or Plasma CCP Ab Lab Routine Inflammatory arthritis 08/19/2024 2:56 PM EST [employer] D-Dimer, Quantitative D-Dimer, Q uantitative Lab Routine Daily until discontinued starting 06/15/2021, 4 completed [employer] Phone: Comment on above: Daily until disconti nued starting 06/15/2021, 4 completed End: 05-23-2022 Drug screen multi urine Drug screen multi urine Lab Routine One Time for 1 Occurrences starting 05/23/2022 until 05/23/2022 [employer] Phone: Comment on above: One Time for 1 Occur rences starting 05/23/2022 until 05/23/2022 EKG 12 Lead EKG 12 Lead ECG STAT 05/23/2022 11:42 PM EDT [employer] Phone: End: 08-19-2025 Erythrocyte sedimentation rate Erythrocyte Sedimentation Rate (ESR) Lab Routine Inflammatory arthritis 1 Occurrences starting 08/19/2024 until 08/19/2025 [employer] Phone: Comment on above: 1 Occurrences starti ng 08/19/2024 until 08/19/2025 End: 10-17-2025 Erythrocyte sedimentation rate Erythrocyte Sedimentation Rate (ESR) Lab Routine Medication monitoring encounter 1 Occurrences starting 10/17/2024 until 10/17/2025 [employer] Phone: Comment on above: 1 Occurrences starti ng 10/17/2024 until 10/17/2025 Erythrocyte sedimentation rate by Photometric method Erythrocyte Sedimentation Rate (ESR) Lab Routine Inflammatory arthritis 08/19/2024 2:56 PM EST [employer] Ferritin [Mass/volum e] in Serum or Plasma Ferritin Lab Routine Daily until discontinued starting 06/15/2021, 3 completed [employer] Phone: Comment on above: Daily until disconti nued starting 06/15/2021, 3 completed Ferritin [Mass/volum e] in Serum or Plasma Ferritin Lab Routine 06/18/2021 6:01 AM EST [employer] Phone: Fibrinogen Fibrinogen Lab R outine Daily until discontinued starting 06/15/2021, 4 completed [employer] Phone: Comment on above: Daily until disconti nued starting 06/15/2021, 4 completed Oxygen therapy [Mini mum Data Set] Initiate Oxygen Therapy Protocol Respiratory Care Routine Daily until discontinued starting 06/14/2021 [employer] Phone: Comment on above: Daily until disconti nued starting 06/14/2021 Oxygen therapy [Mini mum Data Set] Initiate Oxygen Therapy Protocol Respiratory Care Routine As Needed until discontinued starting 05/24/2022 [employer] Phone: Comment on above: As Needed until disc ontinued starting 05/24/2022 End: 05-23-2022 Prolactin [employer] Phone: Comment on above: One Time for 1 Occur rences starting 05/23/2022 until 05/23/2022 End: 08-19-2025 Rheumatoid factor Rheumatoid factor Lab Routine Inflammatory arthritis 1 Occurrences starting 08/19/2024 until 08/19/2025 [employer] Comment on above: 1 Occurrences starti ng 08/19/2024 until 08/19/2025 Rheumatoid factor [Units/volume] in Serum by Nephelometry Rheumatoid factor Lab Routine Inflammatory arthritis 08/19/2024 2:56 PM EST [employer] End: 05-24-2022 Splint application Splint application Procedures Routine One Time for 1 Occurrences starting 05/24/2022 until 05/24/2022 [facility] [employer] Work Phone: Comment on above: One Time for 1 Occur rences starting 05/24/2022 until 05/24/2022 End: 05-23-2022 Urinalysis with Reflex to Culture Urinalysis with Reflex to Culture Lab Routine One Time for 1 Occurrences starting 05/23/2022 until 05/23/2022 [facility] [employer] Work Phone: Comment on above: One Time for 1 Occur rences starting 05/23/2022 until 05/23/2022 Immunizations Immunization Date Immunization Notes Care Provider [facility] 03-24-2015 influenza, injectabl e, quadrivalent, preservative free Minda Yeboah HEDIS COORDINATOR Work Phone: [facility] 03-24-2015 influenza virus vaccine, unspecified formulation Cristian Szymanski MD Work Phone: [facility] [employer] Payers Date Payer Category Payer Medicaid [id number] 2022 Medicaid [id number] 2014 Unknown [employer] [id number] 2014-Present [phone] [address] [place] [address] [id number] 1967 Unknown [id number] 2.16.840.1.643547.3.579.2.93 1967 Unknown [id number] 2.16.840.1.207879.3.579.2.732 1967 Unknown [id number] 2.16.840.1.655236.3.579.2.732 1967 Unknown [id number] 2.16.840.1.007038.3.579.2.593 1967 Unknown [id number] 2.16.840.1.010748.3.579.2.593 1967 Unknown [id number] 2.16.840.1.381004.3.579.2.593 1967 Unknown [id number] 2.16.840.1.605917.3.579.2.593 1967 Unknown [id number] 2.16.840.1.898312.3.579.2.593 1967 Unknown [id number] 2.16.840.1.588516.3.579.2.593 1967 Unknown [id number] 2.16.840.1.093292.3.579.2.593 1967 Unknown [id number] 2.16.840.1.118264.3.579.2.593 1967 Unknown [id number] 2.16.840.1.907379.3.579.2.593 1967 Unknown [id number] 2.16.840.1.184724.3.579.2.593 1967 Unknown [id number] 2.16.840.1.661608.3.579.2.593 1967 Unknown [id number] 2.16.840.1.150886.3.579.2.593 1967 Unknown [id number] 2.16.840.1.432796.3.579.2.1286 1967 Unknown [id number] 2.16.840.1.097309.3.579.2.173 1967 Unknown [id number] 2.16.840.1.823349.3.579.2.1259 1967 Unknown [id number] 2.16.840.1.094185.3.579.2.1259 1967 Unknown [id number] 2.16.840.1.573216.3.579.2.1259 1967 Unknown [id number] 2.16.840.1.829927.3.579.2.9 1967 Unknown [id number] 2.16.840.1.518671.3.579.2.9 1967 Unknown [id number] 2.16.840.1.599847.3.579.2.1258 1967 Unknown [id number] 2.16.840.1.557119.3.579.2.9 1967 Unknown [id number] 2.16.840.1.216516.3.579.2.1285 1967 Unknown [id number] 2.16.840.1.570274.3.579.2.1285 1967 Unknown [id number] 2.16.840.1.387354.3.579.2.1285 1967 Unknown [id number] 2.16.840.1.738124.3.579.2.6 1959 Unknown [id number] 1.2.840.780233.1.13.239.2.7.3.6 [id number] Social History Date Type Detail Facility Start: 07-31-1981 End: 04-29-2024 Tobacco smoking status [facility] Smokes tobacco daily [employer] Phone: Start: 07-31-1981 History of tobacco use Cigarette Smo ker [employer] Phone: Start: 06-15-2021 End: 05-23-2022 Alcohol intake Current drinker of alcohol (finding) [employer] Phone: Start: 1965 Sex Assigned At Not on file [facility] Phone: Start: 05-13-2022 End: 05-24-2022 Exposure to SARS-CoV-2 (event) Not sure [employer] Start: 08-20-2012 End: 07-04-2024 Cigarettes smoked current (pack per day) - Reported 1 [facility] Start: 08-20-2012 Tobacco use and exposure Smokeless tobacco non-user [facility] [employer] Work Phone: Tobacco smoking stat [facility] Tobacco smoking consumption unknown [facility] Start: 04-29-2024 End: 12-17-2024 Alcoholic beverage intake Lifetime non-drinker (finding) [facility] Start: 04-29-2024 End: 07-04-2024 Tobacco use panel [facility] Start: 09-19-2023 Alcohol Comment coffee: 2-3cups darrel y [facility] Childcare Unknown [facility] Start: 03-05-2015 Sex Female (finding) [facility] Clinical Notes 06-16-2021 to 12-17-2024 Minda Yeboah NP - 12/17/2024 4:44 PM Jacqueline Yeboah NP - 12/17/2024 4:43 PM Jacqueline Yeboah NP - 12/17/2024 4:42 PM Jacqueline Yeboah NP - 12/17/2024 4:42 PM EDTPatient InstructionsAttachments Note Date & Type Note Facility 12-17-2024 History of Present illness Narrative Associated Problem(s): Encounter for screening mammogram for malignant neoplasm of breast Check mammogram Associated Problem(s): Obesity with body mass index (BMI) of 30.0 to 39.9 Discussed with patient their BMI (actual, verses recommended). We have also discussed lifestyle modifications: attempts to perform physical activity as chronic conditions allow, also to monitor dietary intake: increasing protein/fruits/veggies and lowering carb intake (unless contraindicated). Limit sodas, juices, and sugary drinks. Associated Problem(s): Multiple thyroid nodules (CMS/HCC) Recheck US Associated Problem(s): Hematemesis No episodes since the one she describes Avoid ETOH, advised quit smoking Change PPI Refer to GI Check labs If happens again, proceed to the ER Associated Problem(s): Diarrhea No visible blood that she can see Check stool OB, as well as c diff Will refer to colonoscopy Pt went up to [place] on Monday (pt states she has been feeling drained for some time but she felt more drained than usual) pt states she typically does not drink alcohol. She had 4 rum cokes she passed out that night. Pt woke up close to 2 am and started having several emesis between 2am-6am. Pt states she had about 5 emesis but each time there was bright red blood and seemed to be a lot. Pt states she had the chills, headaches, no other s/s. Pt states it was only that night were she was vomiting blood. Pt states she did take all over her medications Monday morning before leaving however she did not take any meds that evening when drinking. Pt states she has had diarrhea for about a month no blood it does look dark in color not necessarily black and stomach is always bloated. Images from the original note were not [...] alcohol. She had 4 rum cokes she passed out that night. Pt woke up close to 2 am and started having several emesis between 2am-6am. Pt states she had about 5 emesis but each time there was bright red blood and seemed to be a lot. Pt states she had the chills, headaches, no other s/s. Pt states it was only that night were she was vomiting blood. Pt states she did take all over [...] of bloody emesis. She does have diarrheal stools 2-3 times daily, and this has been ongoing [...] CT Age-related osteoporosis without current pathological fracture ([facility]) 07/25/2023 Anemia Anxiety At low risk for fall Chronic pain Constipation COVID-19 virus detected Depression with anxiety 08/14/2023 10/20/22: MARY 7 score=18, PHQ 9 score=18 Elevated serum creatinine 07/27/2023 Elevated serum glucose Environmental and seasonal allergies 08/20/2023 MARY (generalized anxiety disorder) ([facility]) 07/22/2023 GERD (gastroesophageal reflux disease) 08/14/2023 HLD (hyperlipidemia) ([facility]) 08/14/2023 Hypokalemia Hypomagnesemia 08/14/2023 Hypothyroidism (acquired) ([facility]) 07/03/2023 Insomnia 08/14/2023 Lumbar spine pain Major depressive disorder with single episode, in remission (HCC) ([facility]) 07/03/2023 Migraines ([facility]) 08/14/2023 Mild episode of recurrent major depressive disorder (HCC) ([facility]) Obesity with body mass index (BMI) of 30.0 to 39.9 09/11/2023 THOMAS (obstructive sleep apnea) 08/14/2023 sleep study: AHI 7, minimum oxygen saturation is 87% Osteoporosis ([facility]) 08/14/2023 Postmenopause RA (rheumatoid arthritis) ([facility]) 08/14/2023 Seizures ([facility]) 08/14/2023 Spondylosis, lumbosacral 08/14/2023 Thyroid enlargement ([facility]) 09/11/2023 Thyroid nodule ([facility]) 09/11/2023 Tobacco user 08/14/2023 Past Surgical History: Procedure Laterality Date APPENDECTOMY 02/23/2007 family history includes Arthritis in her mother; Cancer in her mother; Heart disease in her father, maternal grandmother, and another family member; Hypertension in her father, mother, and another family member; Hypothyroidism in her mother; Rheum arthritis in her mother. OBJECTIVE: Visit Vitals BP 116/84 (BP Location: Left arm, Patient Position: Sitting, BP Cuff Size: Adult long) Pulse 86 Temp 97.8 F (Temporal) Resp 19 Wt 201 lb 3.2 oz SpO2 98% BMI 31.51 kg/m Smoking Status Every Day BSA 2.08 m Physical Exam Vitals and nursing note reviewed. [...] stool Clostridium difficile,EIA Ambulatory referral to Gastroenterology Associated Problem(s): Cigarette nicotine dependence without complication The [...] provider when ready to start this process Associated Problem(s): Rheumatoid arthritis, unspecified Continue with rheumatolgist ?? Meds aggravating stomach?? Associated Problem(s): GERD (gastroesophageal reflux disease) Recommendations: freq small meals, nothing to eat or drink at least 2 hours prior to bed, limit caffeine, alcohol, as well as spicy foods Meds to limit or avoid if possible: NSAIDS Elevate HOB if possible Currently taking PPI, will stop omeprazole and start pantoprazole documented in this encounter [facility] 12-17-2024 Instructions Minda Yeboah NP - 12/17/2024 4:00 PM EDT Check labs Also stop omeprazole and start pantoprazole 40mg daily I referred you to dr pulido, he is GI doctor affiliated with [facility], they should be calling for an appointment Recommend no caffeine, and quitting smoking, if another episode of vomiting blood happens, go to ER documented in this encounter [facility] 10-17-2024 History of Present illness Narrative Images from the original note were not included. [address] [facility] [address] [facility] [id number] Date of Service: 10/17/2024 Chief Complaint: Joint pain SUBJECTIVE: Tanja Carrero is a 58 y.o. female who came to rheumatology clinic in follow-up evaluation of possible underlying autoimmune disease. The problem has been present for several months. Patient has history of dyslipidemia, hypothyroidism, GERD, migraine headaches, seizure disorder, anxiety/depression, cervical spine and lumbar spine degenerative disc disease and used to be followed by pain specialist. Patient was seen by PCP for having more joint pain and found to have positive ELOY. Current Symptoms include pain of left knee, right knee, left hip, right hip, lumbar spine, and cervical spine. Onset was gradual. The symptoms are of moderate severity. They are made worse by: cold exposure, sitting, standing, and walking. They are helped by arthritis medications. Associated symptoms include: She has hx of photosensitivity, no dry eye/mouth, no recurrent oral/nasal ulcer, she has Raynaud's, no DVT/PE, she had miscarriage and normal in the past, no pleurisy. Her energy is low, denies patchy hair loss. Previously used rheumatologic medications include NSAIDS - Problems: none. Limitation on activities include: difficulty with walking and difficulty with ADLs. Rheumatology Family Hx: no family hx related to rheumatology noted. Previous Meds tried: Neurontin: didn't work. Previous Procedures: REVIEW OF SYSTEMS: CONSTITUTIONAL: Admits: [] Weight Loss [] Fever [] Frequent Night Sweats OPHTHALMOLOGIC: Admits: [] Glaucoma [] History or Current Inflammatory Eye Disease [] Cataracts ENT: Admits: [] Oral/Nasal Ulcers [] epistaxis [] Recurrent Sinusitis [] Dry Eyes [] Dry mouth CARDIOVASCULAR: Admits: [] Chest pain [] Pericarditis/Pleuritis [] Palpitations [] Edema RESPIRATORY: Admits: [] hemoptysis [] Dyspnea on Exertion [] Cough [] Wheezing GASTROINTESTINAL: Admits: [] Bloody Stool [] Diarrhea [] Vomitting GENITOURINARY: Admits: [] Blood in urine [] Genital Ulcers [] Burning/pain with urination MUSCULOSKELETAL: Admits: [] Muscle Pain [x] Joint Pain INTEGUMENTARY: Admits: [] Skin changes [] Sclerodactyly [] Raynauds [] Photosensitivity [] Alopecia NEUROLOGIC: Admits: [] Recurrent Headaches [] Limb Weakness [] Numbness/Tingling PSYCHIATRIC: Admits: [] Insomnia [x] Depression [x] Anxiety ENDOCRINE: Admits: [] Thyroid abnormalities HEMATOLOGY/LYMPH: Admits: [] Notable Swollen Lymph Nodes [] History of Cytopenias [] Bruising tendency [] History of DVT/PE All non checked boxes, patient denies. All other 10 point ROS reviewed and negative. PHYSICAL EXAMINATION: Constitutional: Resp 16 Ht 170.2 cm (5' 7 ) Wt 95.3 kg (210 lb) BMI 32.89 kg/m : reviewed Comfortable, pleasant, no acute distress Eyes: Conjunctiva clear and moist, eyelids without lesions. Extraocular movements fully intact. Ears/Nose/Mouth/Throat: External inspection of ears/nose is normal - no scars, lesions, masses No oral ulcers or lesions on mucosa of inner mouth, tongue. Neck: Symmetrical, tongue midline, no masses, no lymphadenopathy, no thyromegaly Respiratory: Inspiratory and expiratory effort normal. Clear to auscultation bilaterally. No crackles or wheezes. Cardiovascular: Palpation of heart reveals normal PMI. Auscultation: regular rate rhythm, no murmurs/rubs/gallops. Carotid arteries symmetric and 2+. No edema of extremities Gastrointestinal: Soft, nontender, bowel sounds in all quadrants. No hepatosplenomegaly on palpation. Lymphatic: No lymphadenopathy in neck Neurologic: Facial muscles symmetric and of normal strength. Tongue is midline. Dermatologic: Inspection and palpation of skin and subcutaneous tissue of all four extremities without rashes Nailfold capillary exam normal Psychiatric: Normal affect. Judgement/insight intact. Musculoskeletal: Neck: Full ROM. no swelling, No tenderness, Shoulder: Bilateral full active ROM. no swelling, No tenderness, Elbows: Full ROM. no swelling, No tenderness, Wrists: Full ROM. no swelling, No tenderness, Hands: Full ROM. no swelling, No tenderness, Hips: Normal ROM. No swelling, No tenderness, Knees: Normal ROM, no swelling, No tenderness, Feet: Full ROM. no swelling, No tenderness, Ankles: Normal ROM,no swelling, No tenderness, Spine: no tenderness throughout spine, no sacroiliac joint tenderness Labs & Imaging: Labs and Imaging reviewed and discussed with the patient during the visit. Lab Results Component Value Date C3 114 02/23/2023 C4 14 (L) 02/23/2023 Lab Results Component Value Date WBC 9.6 08/19/2024 HGB 12.7 08/19/2024 HCT 37.0 08/19/2024 MCV 88 08/19/2024 PLT 358 08/19/2024 Lab Results Component Value Date CREATININE 1.24 (H) 08/19/2024 BUN 10 08/19/2024 K 4.4 08/19/2024 CL 101 08/19/2024 CO2 25 08/19/2024 Lab Results Component Value Date ALT 23 08/19/2024 AST 23 08/19/2024 ALKPHOS 101 08/19/2024 Lab Results Component Value Date SEDRATE 31 (H) 08/19/2024 Lab Results Component Value Date CRP 1.4 (H) 08/19/2024 No results found. ASSESSMENT/PLAN: Diagnoses and all orders for this visit: Undifferentiated connective tissue disease Inflammatory arthritis - The ELOY was checked by PCP as pt has lots of pain. - She has hx of photosensitivity, no dry eye/mouth, no recurrent oral/nasal ulcer, she has Raynaud's, no DVT/PE, she had miscarriage and normal in the past, no pleurisy. Her energy is low, denies patchy hair loss - Based on history and ph/ex, few sign and symptoms of connective tissue disease. - serologies are negative but she has low complement level. Treating as UCTD and started her on Plaquenil but she could not tolerate it. - As she has lots of joint pain, stiffness and swelling, added MTX 12.5 mg weekly and daily prednisone. She is doing much better. Taper her off steroid. DDD (degenerative disc disease), cervical DDD (degenerative disc disease), lumbar - she used to be followed by pain clinic and getting injections - neck x-ray showed muscle spasm. Try muscle relaxer and refer to PT. Fibromyalgia - She complains of lots of body ache and pain. - Symptoms are worse with daily activity and stress. - She has ineffective sleep. Some headaches but not often, good appetite but complains of constipation. - Exam is benign except of having 14/18 tender point. - symptoms are related to Fibromyalgia. - Cymbalta, Neurontin and Lyrica can be considered. Muscle relaxer can be helpful in patients with Fibromyalgia. - Handouts about Fibro and the Flyer for Support group is given to the patient. Medication monitoring encounter I have explained potential side effects of Plaquenil including short term acute vision changes, nausea, vomiting, weight loss, skin discoloration, contracts paralegal risk of retinal toxicity and need for annual retinal eye exams Follow up in 3 months.. Total time spent with the patient face to face was 30 minutes which included obtaining and reviewing history, performing an exam, educating and counseling the patient, communicating test results to the patient. Preparing to see the patient (reviewing all results, history, medications, my office notes, other physician notes), ordering tests/medications/referrals, documenting in the patient's health record time spent was 10 minutes This note was created with the assistance of a speech recognition program. While intending to generate a timely document that accurately reflects the content of the visit, no guarantee can be provided that every grammatical or spelling mistake has been or will be identified or corrected. Thank you for your understanding. Any information carried forward was reviewed, updated, and is pertinent to the current visit [facility] Dr. Cristian Szymanski M.D. [address] [place] [address] [address] [place] [address] Office: [phone] 10/17/2024 documented in this encounter [facility] 09-16-2024 Telephone encounter Note Patient called and asked for a refill on all her medications. an [facility] 09-16-2024 Miscellaneous Notes Patient called and asked for a refill on all her medications. an documented in this encounter [facility] 08-19-2024 History of Present illness Narrative Images from the original note were not included. [address] [facility] [address] [facility] [id number] Date of Service: 08/19/2024 Chief Complaint: Joint pain SUBJECTIVE: Tanja Carrero is a 58 y.o. female who came to rheumatology clinic in follow-up evaluation of possible underlying autoimmune disease. The problem has been present for several months. Patient has history of dyslipidemia, hypothyroidism, GERD, migraine headaches, seizure disorder, anxiety/depression, cervical spine and lumbar spine degenerative disc disease and used to be followed by pain specialist. Patient was seen by PCP for having more joint pain and found to have positive ELOY. Current Symptoms include pain of left knee, right knee, left hip, right hip, lumbar spine, and cervical spine. Onset was gradual. The symptoms are of moderate severity. They are made worse by: cold exposure, sitting, standing, and walking. They are helped by arthritis medications. Associated symptoms include: She has hx of photosensitivity, no dry eye/mouth, no recurrent oral/nasal ulcer, she has Raynaud's, no DVT/PE, she had miscarriage and normal in the past, no pleurisy. Her energy is low, denies patchy hair loss. Previously used rheumatologic medications include NSAIDS - Problems: none. Limitation on activities include: difficulty with walking and difficulty with ADLs. Rheumatology Family Hx: no family hx related to rheumatology noted. Previous Meds tried: Neurontin: didn't work. Previous Procedures: REVIEW OF SYSTEMS: CONSTITUTIONAL: Admits: [] Weight Loss [] Fever [] Frequent Night Sweats OPHTHALMOLOGIC: Admits: [] Glaucoma [] History or Current Inflammatory Eye Disease [] Cataracts ENT: Admits: [] Oral/Nasal Ulcers [] epistaxis [] Recurrent Sinusitis [] Dry Eyes [] Dry mouth CARDIOVASCULAR: Admits: [] Chest pain [] Pericarditis/Pleuritis [] Palpitations [] Edema RESPIRATORY: Admits: [] hemoptysis [] Dyspnea on Exertion [] Cough [] Wheezing GASTROINTESTINAL: Admits: [] Bloody Stool [] Diarrhea [] Vomitting GENITOURINARY: Admits: [] Blood in urine [] Genital Ulcers [] Burning/pain with urination MUSCULOSKELETAL: Admits: [] Muscle Pain [x] Joint Pain INTEGUMENTARY: Admits: [] Skin changes [] Sclerodactyly [] Raynauds [] Photosensitivity [] Alopecia NEUROLOGIC: Admits: [] Recurrent Headaches [] Limb Weakness [] Numbness/Tingling PSYCHIATRIC: Admits: [] Insomnia [x] Depression [x] Anxiety ENDOCRINE: Admits: [] Thyroid abnormalities HEMATOLOGY/LYMPH: Admits: [] Notable Swollen Lymph Nodes [] History of Cytopenias [] Bruising tendency [] History of DVT/PE All non checked boxes, patient denies. All other 10 point ROS reviewed and negative. PHYSICAL EXAMINATION: Constitutional: BP 110/78 Pulse 58 Resp 18 Ht 170.2 cm (5' 7 ) Wt 83.9 kg (185 lb) BMI 28.98 kg/m : reviewed Comfortable, pleasant, no acute distress Eyes: Conjunctiva clear and moist, eyelids without lesions. Extraocular movements fully intact. Ears/Nose/Mouth/Throat: External inspection of ears/nose is normal - no scars, lesions, masses No oral ulcers or lesions on mucosa of inner mouth, tongue. Neck: Symmetrical, tongue midline, no masses, no lymphadenopathy, no thyromegaly Respiratory: Inspiratory and expiratory effort normal. Clear to auscultation bilaterally. No crackles or wheezes. Cardiovascular: Palpation of heart reveals normal PMI. Auscultation: regular rate rhythm, no murmurs/rubs/gallops. Carotid arteries symmetric and 2+. No edema of extremities Gastrointestinal: Soft, nontender, bowel sounds in all quadrants. No hepatosplenomegaly on palpation. Lymphatic: No lymphadenopathy in neck Neurologic: Facial muscles symmetric and of normal strength. Tongue is midline. Dermatologic: Inspection and palpation of skin and subcutaneous tissue of all four extremities without rashes Nailfold capillary exam normal Psychiatric: Normal affect. Judgement/insight intact. Musculoskeletal: Neck: Full ROM. no swelling, No tenderness, Shoulder: Bilateral full active ROM. no swelling, No tenderness, Elbows: Full ROM. no swelling, No tenderness, Wrists: Full ROM. no swelling, No tenderness, Hands: Full ROM. no swelling, No tenderness, Hips: Normal ROM. No swelling, No tenderness, Knees: Normal ROM, no swelling, No tenderness, Feet: Full ROM. no swelling, No tenderness, Ankles: Normal ROM,no swelling, No tenderness, Spine: no tenderness throughout spine, no sacroiliac joint tenderness Labs & Imaging: Labs and Imaging reviewed and discussed with the patient during the visit. Lab Results Component Value Date C3 114 02/23/2023 C4 14 (L) 02/23/2023 No results found for: WBC , HGB , HCT , MCV , PLT No results found for: CREATININE , BUN , NA , K , CL , CO2 No results found for: ALT , AST , GGT , ALKPHOS , LABBILI Lab Results Component Value Date SEDRATE 14 02/23/2023 Lab Results Component Value Date CRP 0.3 02/23/2023 No results found. ASSESSMENT/PLAN: Diagnoses and all orders for this visit: Undifferentiated connective tissue disease Inflammatory arthritis - The ELOY was checked by PCP as pt has lots of pain. - She has hx of photosensitivity, no dry eye/mouth, no recurrent oral/nasal ulcer, she has Raynaud's, no DVT/PE, she had miscarriage and normal in the past, no pleurisy. Her energy is low, denies patchy hair loss - Based on history and ph/ex, few sign and symptoms of connective tissue disease. - serologies are negative but she has low complement level. Treating as UCTD and started her on Plaquenil but she could not tolerate it. - As she has lots of joint pain, stiffness and swelling, adding MTX DDD (degenerative disc disease), cervical DDD (degenerative disc disease), lumbar - she used to be followed by pain clinic and getting injections - neck x-ray showed muscle spasm. Try muscle relaxer and refer to PT. Fibromyalgia - She complains of lots of body ache and pain. - Symptoms are worse with daily activity and stress. - She has ineffective sleep. Some headaches but not often, good appetite but complains of constipation. - Exam is benign except of having 14/18 tender point. - symptoms are related to Fibromyalgia. - Cymbalta, Neurontin and Lyrica can be considered. Muscle relaxer can be helpful in patients with Fibromyalgia. - Handouts about Fibro and the Flyer for Support group is given to the patient. Medication monitoring encounter I have explained potential side effects of Plaquenil including short term acute vision changes, nausea, vomiting, weight loss, skin discoloration, retirement risk of retinal toxicity and need for annual retinal eye exams Follow up in 6 weeks.. Total time spent with the patient face to face was 30 minutes which included obtaining and reviewing history, performing an exam, educating and counseling the patient, communicating test results to the patient. Preparing to see the patient (reviewing all results, history, medications, my office notes, other physician notes), ordering tests/medications/referrals, documenting in the patient's health record time spent was 10 minutes This note was created with the assistance of a speech recognition program. While intending to generate a timely document that accurately reflects the content of the visit, no guarantee can be provided that every grammatical or spelling mistake has been or will be identified or corrected. Thank you for your understanding. Any information carried forward was reviewed, updated, and is pertinent to the current visit [facility] Dr. Cristian Szymanski M.D. [address] [place] [address] [address] [place] [address] Office: [phone] 08/19/2024 documented in this encounter [facility] 07-04-2024 History of Present illness Narrative Images from the original note were not included. Tanja Carrero is a 58 y.o. female presents with chief complaint of Hypothyroidism HPI: Thyroid Problem Presents for follow-up visit. Symptoms include anxiety and depressed mood. Patient reports no constipation, diaphoresis, diarrhea, dry skin, fatigue, hair loss, heat intolerance, hoarse voice, leg swelling, palpitations, tremors, weight gain or weight loss. The symptoms have been stable. Anxiety Presents for follow-up visit. Symptoms include depressed mood, irritability and nervous/anxious behavior. Patient reports no chest pain, dizziness, excessive worry, nausea, palpitations, panic, shortness of breath or suicidal ideas. Symptoms occur most days. The severity of symptoms is mild. The quality of sleep is good. Nighttime awakenings: occasional. Compliance with medications is 76-100%. GERD She reports no abdominal pain, no chest pain, no coughing, no dysphagia, no early satiety, no hoarse voice, no nausea, no sore throat, no stridor, no water brash or no wheezing. This is a chronic problem. The current episode started more than 1 year ago. The problem occurs occasionally. The problem has been unchanged. The symptoms are aggravated by certain foods and caffeine. Pertinent negatives include no fatigue or weight loss. Risk factors include caffeine use, NSAIDs and smoking/tobacco exposure. She has tried a PPI for the symptoms. The treatment provided significant relief. SUBJECTIVE: MEDICATIONS: Current Outpatient Medications Medication Instructions [...] nasal spray 2 sprays, Each Nostril, Daily ibuprofen 800 mg, Every 8 hours PRN levothyroxine (SYNTHROID) 50 mcg, Oral, Daily before breakfast magnesium oxide (MAG-OX) 400 mg, Oral, Daily omeprazole (PRILOSEC) 40 mg, Oral, Daily before breakfast QUEtiapine (SEROQUEL) 150 mg, Oral, Nightly sertraline [...] SYMPTOMS: Review of Systems Constitutional: Positive for irritability. Negative for appetite change, chills, diaphoresis, fatigue, fever, weight gain and weight loss. HENT: Negative for congestion, ear pain, hoarse voice and sore throat. Eyes: Negative for pain, discharge, redness and visual disturbance. Respiratory: Negative for cough, shortness of breath and wheezing. Cardiovascular: Negative for chest pain, palpitations and leg swelling. Gastrointestinal: Negative for abdominal pain, blood in stool, constipation, diarrhea, dysphagia, nausea and vomiting. Genitourinary: Negative for difficulty urinating, dysuria and frequency. Musculoskeletal: Negative for arthralgias, back pain, joint swelling and myalgias. Skin: Negative for rash and wound. Neurological: Negative for dizziness, tremors, seizures, syncope and headaches. Psychiatric/Behavioral: Negative for behavioral problems, self-injury and suicidal ideas. The patient is nervous/anxious. Depression Hematological: Does not bruise/bleed easily. Endocrine: Negative for heat intolerance, polydipsia, polyphagia and polyuria. Allergic/Immunologic: Negative for environmental allergies and food allergies. PAST MEDICAL HISTORY Past Medical History: Diagnosis Date Abnormal chest CT Age-related osteoporosis without current pathological fracture ([facility]) 07/25/2023 Anemia Anxiety At low risk for fall Chronic pain Constipation COVID-19 virus detected Depression with anxiety 08/14/2023 10/20/22: MARY 7 score=18, PHQ 9 score=18 Elevated serum creatinine 07/27/2023 Elevated serum glucose Environmental and seasonal allergies 08/20/2023 MARY (generalized anxiety disorder) ([facility]) 07/22/2023 GERD (gastroesophageal reflux disease) 08/14/2023 HLD (hyperlipidemia) ([facility]) 08/14/2023 Hypokalemia Hypomagnesemia 08/14/2023 Hypothyroidism (acquired) ([facility]) 07/03/2023 Insomnia 08/14/2023 Lumbar spine pain Major depressive disorder with single episode, in remission (HCC) ([facility]) 07/03/2023 Migraines ([facility]) 08/14/2023 Mild episode of recurrent major depressive disorder (HCC) ([facility]) Obesity with body mass index (BMI) of 30.0 to 39.9 09/11/2023 THOMAS (obstructive sleep apnea) 08/14/2023 sleep study: AHI 7, minimum oxygen saturation is 87% Osteoporosis ([facility]) 08/14/2023 Postmenopause RA (rheumatoid arthritis) ([facility]) 08/14/2023 Seizures ([facility]) 08/14/2023 Spondylosis, lumbosacral 08/14/2023 Thyroid enlargement (CMS/HCC) 09/11/2023 Thyroid nodule (CMS/HCC) 09/11/2023 Tobacco user 08/14/2023 Past Surgical History: Procedure Laterality Date APPENDECTOMY 02/23/2007 family history includes Arthritis in her mother; Cancer in her mother; Heart disease in her father, maternal grandmother, and another family member; Hypertension in her father, mother, and another family member; Hypothyroidism in her mother; Rheum arthritis in her mother. OBJECTIVE: Visit Vitals BP 104/80 (BP Location: Left arm, Patient Position: Sitting, BP Cuff Size: Adult long) Pulse 96 Temp 98.1 F (Temporal) Resp 18 Ht 5' 7 Wt 188 lb SpO2 98% BMI 29.44 kg/m Smoking Status Every Day BSA 2.01 m Physical Exam Vitals and nursing note reviewed. Constitutional: General: She is not in acute distress. Appearance: Normal appearance. HENT: Head: Normocephalic and atraumatic. Right Ear: External ear normal. Left Ear: External ear normal. Nose: Nose normal. Mouth/Throat: Mouth: Mucous membranes are moist. Eyes: Extraocular Movements: Extraocular movements intact. Conjunctiva/sclera: Conjunctivae normal. Neck: Vascular: No carotid bruit. Cardiovascular: Rate and Rhythm: Normal rate and regular rhythm. Pulses: Normal pulses. Heart sounds: Normal heart sounds. Pulmonary: Effort: Pulmonary effort is normal. Breath sounds: Normal breath sounds. No wheezing or rales. Abdominal: General: Bowel sounds are normal. There is no distension. Palpations: Abdomen is soft. There is no mass. Tenderness: There is no abdominal tenderness. Musculoskeletal: General: Normal range of motion. Cervical [...] ASSESSMENT AND PLAN: Follow up in about 3 months (around 10/02/2024) for Recheck. Problem List Items Addressed This Visit Hypothyroidism (acquired) ([facility]) Continue levothyroxine Labs yearly and prn Relevant Medications levothyroxine (Synthroid) 50 MCG tablet MARY (generalized anxiety disorder) ([facility]) No changes to med MARY=2 Relevant Medications sertraline (Zoloft) 100 MG tablet Mixed hyperlipidemia ([facility]) Continue statin Check labs yearly and prn dose changes Relevant Medications atorvastatin (Lipitor) 40 MG tablet Seizures ([facility]) Will cont topirimate, but monitor Is not compliant with neurology fu Relevant Medications topiramate (Topamax) 100 MG tablet topiramate (Topamax) 25 MG tablet GERD (gastroesophageal reflux disease) Recommendations: freq small meals, nothing to eat or drink at least 2 hours prior to bed, limit caffeine, alcohol, as well as spicy foods Meds to limit or avoid if possible: NSAIDS Elevate HOB if possible Currently taking PPI Relevant Medications omeprazole (PriLOSEC) [address] capsule Osteoporosis ([facility]) Continue w fosamax Last DEXA: 10/20/22 Relevant Medications alendronate (Fosamax) 70 MG tablet Tobacco user The patient has been advised of the [...] provider when ready to start this process Hypomagnesemia Relevant Medications magnesium oxide (Mag-Ox) 400 (240 Mg) MG tablet Depression with anxiety MARY 7= 2, PHQ 9= 5 Stable on current meds Vitamin D deficiency Continue current supplement Check labs yearly and prn Relevant Medications cetirizine (ZyrTEC) 10 MG tablet cholecalciferol (Vitamin D-3) 50 MCG (1999) capsule Environmental and seasonal allergies Relevant Medications cetirizine (ZyrTEC) 10 MG tablet fluticasone (Flonase) 50 MCG/ACT nasal spray RESOLVED: Chronic bronchitis ([facility]) Relevant Medications Umeclidinium-Vilanterol (Anoro Ellipta) 62.5-25 MCG/ACT aerosol powder Abnormal weight gain Has completed # 6 months of adipex Total loss: Discussed with patient their BMI (actual, verses recommended). We have also discussed lifestyle modifications: attempts to perform physical activity as chronic conditions allow, also to monitor dietary intake: increasing protein/fruits/veggies and lowering carb intake (unless contraindicated). Limit sodas, juices, and sugary drinks. Maintain 1600 calorie diet Chronic obstructive pulmonary disease, unspecified ([facility]) Recommend quit smoking Cont anoro, albuterol prn Other Visit Diagnoses Anxiety and depression (CMS/[facility]) - Primary Relevant Medications QUEtiapine (SEROquel) 50 MG tablet Major depressive disorder with single episode, in remission (HCC) ([facility]) Relevant Medications sertraline (Zoloft) 100 MG tablet Associated Problem(s): Depression with anxiety MARY 7= 2, PHQ 9= 5 Stable on current meds Associated Problem(s): MARY (generalized anxiety disorder) ([facility]) No changes to med MARY=2 Associated Problem(s): Mixed hyperlipidemia ([facility]) Continue statin Check labs yearly and prn dose changes Associated Problem(s): Hypothyroidism (acquired) (CMS/[facility]) Continue levothyroxine Labs yearly and prn Associated Problem(s): Vitamin D deficiency Continue current supplement Check labs yearly and prn Associated Problem(s): Osteoporosis (CMS/HCC) Continue w fosamax Last DEXA: 10/20/22 Associated Problem(s): GERD (gastroesophageal reflux disease) Recommendations: freq small meals, nothing to eat or drink at least 2 hours prior to bed, limit caffeine, alcohol, as well as spicy foods Meds to limit or avoid if possible: NSAIDS Elevate HOB if possible Currently taking PPI Associated Problem(s): Chronic obstructive pulmonary disease, unspecified (CMS/HCC) Recommend quit smoking Cont anoro, albuterol prn Associated Problem(s): Seizures (CMS/HCC) Will cont topirimate, but monitor Is not compliant with neurology fu Associated Problem(s): Abnormal weight gain Has completed # 6 months of adipex Total loss: Discussed with patient their BMI (actual, verses recommended). We have also discussed lifestyle modifications: attempts to perform physical activity as chronic conditions allow, also to monitor dietary intake: increasing protein/fruits/veggies and lowering carb intake (unless contraindicated). Limit sodas, juices, and sugary drinks. Maintain 1600 calorie diet Associated Problem(s): Tobacco user The patient has been advised of the [...] provider when ready to start this process documented in this encounter [facility] 07-04-2024 Instructions Minda Yeboah NP - 07/04/2024 2:00 PM EST Follow up appt in 3 months Mammogram: due in July 2024, we will fax to [facility]-they should call you Thyroid labs: due now documented in this encounter [facility] 06-05-2024 History of Present illness Narrative Associated Problem(s): Constipation Pre existing, does take miralax And adipex is likely worsening this Would recommend fiber tablets daily 2 pills Add apple juice /prune juice mix 1/2 cup nightly as well Associated Problem(s): Abnormal weight gain Has completed # 5 months of adipex OARRS reviewed Order month #6 Stick with 1600 calories daily Water intake, and exercise as chronic conditions allow Associated Problem(s): MARY (generalized anxiety disorder) ([facility]) No changes to med dose Pt is stress eating, sweats and candy Pt is struggling with medication time frame Images from the original note were not included. Tanja Carrero is a 58 y.o. female presents with chief complaint of No chief complaint on file. HPI: Here for an adipex recheck Last appt she had had her teeth pulled, which did contribute to her weight loss, now is back 4 weeks later with increase in weight up 8 pounds, her weight prior to first script of adipex is 189, which would actually be a 3 pound gain over 2 month period She admits to stress eating and snacking: son had court for visitation Side effects med: constipation, does not feel miralax is working SUBJECTIVE: MEDICATIONS: Current Outpatient Medications Medication Instructions [...] nasal spray 2 sprays, Each Nostril, Daily ibuprofen 800 mg, Oral, Every 8 hours PRN levothyroxine (SYNTHROID) 50 mcg, Oral, Daily before breakfast magnesium oxide (MAG-OX) 400 mg, Oral, Daily omeprazole (PRILOSEC) 40 mg, Oral, Daily before breakfast phentermine (ADIPEX-P) 37.5 mg, Oral, Daily before breakfast QUEtiapine (SEROQUEL) 150 mg, Oral, Nightly sertraline [...] REVIEW OF SYMPTOMS: Review of Systems Constitutional: Negative for appetite change, chills and fever. HENT: Negative for congestion, ear pain and sore throat. Eyes: Negative for pain, discharge, redness and visual disturbance. Respiratory: Negative for cough, shortness of breath and wheezing. Cardiovascular: Negative for chest pain, palpitations and leg swelling. Gastrointestinal: Positive for constipation. Negative for abdominal pain, blood in stool, diarrhea, nausea and vomiting. Genitourinary: Negative for difficulty urinating, dysuria and frequency. Musculoskeletal: Positive for arthralgias and back pain. Negative for joint swelling and myalgias. Skin: Negative for rash and wound. Neurological: Negative for dizziness, tremors, seizures, syncope and headaches. Psychiatric/Behavioral: Negative for behavioral problems, self-injury and suicidal ideas. The patient is nervous/anxious. Hematological: Does not bruise/bleed easily. Endocrine: Negative for polydipsia, polyphagia and polyuria. Allergic/Immunologic: Negative for environmental allergies and food allergies. PAST MEDICAL HISTORY Past Medical History: Diagnosis Date Abnormal chest CT Age-related osteoporosis without current pathological fracture ([facility]) 07/25/2023 Anemia Anxiety At low risk for fall Chronic pain Constipation COVID-19 virus detected Depression with anxiety 08/14/2023 10/20/22: MARY 7 score=18, PHQ 9 score=18 Elevated serum creatinine 07/27/2023 Elevated serum glucose Environmental and seasonal allergies 08/20/2023 MRAY (generalized anxiety disorder) ([facility]) 07/22/2023 GERD (gastroesophageal reflux disease) 08/14/2023 HLD (hyperlipidemia) ([facility]) 08/14/2023 Hypokalemia Hypomagnesemia 08/14/2023 Hypothyroidism (acquired) ([facility]) 07/03/2023 Insomnia 08/14/2023 Lumbar spine pain Major depressive disorder with single episode, in remission (HCC) ([facility]) 07/03/2023 Migraines ([facility]) 08/14/2023 Mild episode of recurrent major depressive disorder (HCC) ([facility]) Obesity with body mass index (BMI) of 30.0 to 39.9 09/11/2023 THOMAS (obstructive sleep apnea) 08/14/2023 sleep study: AHI 7, minimum oxygen saturation is 87% Osteoporosis ([facility]) 08/14/2023 Postmenopause RA (rheumatoid arthritis) ([facility]) 08/14/2023 Seizures ([facility]) 08/14/2023 Spondylosis, lumbosacral 08/14/2023 Thyroid enlargement ([facility]) 09/11/2023 Thyroid nodule ([facility]) 09/11/2023 Tobacco user 08/14/2023 Past Surgical History: Procedure Laterality Date APPENDECTOMY 02/23/2007 family history includes Arthritis in her mother; Cancer in her mother; Heart disease in her father, maternal grandmother, and another family member; Hypertension in her father, mother, and another family member; Hypothyroidism in her mother; Rheum arthritis in her mother. OBJECTIVE: Visit Vitals BP 110/80 (BP Location: Left arm, Patient Position: Sitting, BP Cuff Size: Adult long) Pulse 97 Temp 98.1 F (Temporal) Resp 18 Ht 5' 7 Wt 191 lb 6.4 oz SpO2 97% BMI 29.98 kg/m Smoking Status Every Day BSA 2.03 m Physical Exam Vitals and nursing note reviewed. Constitutional: General: She is not in acute distress. Appearance: Normal appearance. HENT: Head: Normocephalic and atraumatic. Right Ear: External ear normal. Left Ear: External ear normal. Nose: Nose normal. Mouth/Throat: Mouth: Mucous membranes are moist. Eyes: Extraocular Movements: Extraocular movements intact. Conjunctiva/sclera: Conjunctivae normal. Cardiovascular: Rate and Rhythm: Normal rate and regular rhythm. Pulses: Normal pulses. Heart sounds: Normal heart sounds. Pulmonary: Effort: Pulmonary effort is normal. Breath sounds: Normal breath sounds. Abdominal: General: Bowel sounds are normal. There is no distension. Palpations: Abdomen is soft. There is no mass. Tenderness: There is no abdominal tenderness. Musculoskeletal: General: Normal range of motion. Cervical back: Normal range of motion and neck supple. Skin: General: Skin is warm and dry. [...] Follow up in about 4 weeks (around 07/03/2024) for Recheck. Problem List Items Addressed This Visit MARY (generalized anxiety disorder) ([facility]) No changes to med dose Tobacco user The patient has been advised of the [...] provider when ready to start this process Constipation Pre existing, does take miralax And adipex is likely worsening this Would recommend fiber tablets daily 2 pills Add apple juice /prune juice mix 1/2 cup nightly as well Obesity with body mass index (BMI) of 30.0 to 39.9 Abnormal weight gain - Primary Has completed # 5 months of adipex OARRS reviewed Order month #6 Stick with 1600 calories daily Water intake, and exercise as chronic conditions allow Relevant Medications phentermine (Adipex-P) 37.5 MG tablet Associated Problem(s): Tobacco user The patient has been advised of the [...] provider when ready to start this process documented in this encounter [facility] 06-05-2024 Instructions Minda Yeboah NP - 06/05/2024 2:00 PM EST For constipation: continue miralax daily, also add metamucil fiber tablets 2 pills daily Also add 1/2 cup of mixture of apple juice and prune juice warmed up slightly, take at bedtime And if after doing this for 10 days does not help, consider adding milk of magnesia at bedtime documented in this encounter [facility] 04-29-2024 History of Present illness Narrative Associated Problem(s): Abnormal weight gain Has completed # 3 months of adipex Total weight loss: 14 pounds OARRS reviewed Associated Problem(s): RA (rheumatoid arthritis) (CMS/HCC) Continue with rheumatolgist Associated Problem(s): MARY (generalized anxiety disorder) (CMS/HCC) Feels meds are working great Associated Problem(s): Depression with anxiety Stable on current meds Associated Problem(s): Hypothyroidism (acquired) (CMS/HCC) Will recheck in next few weeks to see if needs dose change Associated Problem(s): Osteoporosis (CMS/HCC) Will start fosamax, when ok from dental provider Associated Problem(s): Seizures (CMS/HCC) Will cont topirimate, but monitor Associated Problem(s): Epilepsy (CMS/HCC) (Resolved 04/29/2024) Continue topirimate Will monitor Images from the original note were not included. Tanja Carrero is a 58 y.o. female presents with chief complaint of No chief complaint on file. HPI: Here for recheck Adipex: has lost continued weight this month, also had all her teeth pulled and will be fitted for dentures and that will be in about 2 weeks She continues with her thyroid meds, does report fatigue, however her most recent thyroid med dose is still fluctuating her labs, and instead of an adjustment with her latest value, we are waiting about a month for a recheck to decide if needs re adjustment Her prolia did not get approved, she is going to be placed back on her fosamax, however I have asked her to ask her dental provider when it safe to restart this. She feels her depression/anxiety is doing well too. She did have an episode last week a couple times where she started to feel like she may have a seizure, she felt hot/sweaty, but no seizure activity. She reports compliance with use of topirimate, does report a change in her schedule where she was waking up earlier to take her son to work, she could be up as early as 3am SUBJECTIVE: MEDICATIONS: Current Outpatient Medications Medication Instructions [...] mcg, Oral, Daily cyclobenzaprine (FLEXERIL) 5 mg, Oral, Nightly PRN fluticasone (Flonase) 50 MCG/ACT nasal spray 2 sprays, Each Nostril, Daily ibuprofen 800 mg, Oral, Every 8 hours PRN levothyroxine (SYNTHROID) 50 mcg, Oral, Daily before breakfast magnesium oxide (MAG-OX) 400 mg, Oral, Daily omeprazole (PRILOSEC) 40 mg, Oral, Daily before breakfast phentermine (ADIPEX-P) 37.5 mg, Oral, Daily before breakfast QUEtiapine (SEROQUEL) 150 mg, Oral, Nightly sertraline [...] REVIEW OF SYMPTOMS: Review of Systems Constitutional: Negative for appetite change, chills and fever. HENT: Negative for congestion, ear pain and sore throat. Eyes: Negative for pain, discharge, redness and visual disturbance. Respiratory: Negative for cough, shortness of breath and wheezing. Cardiovascular: Negative for chest pain, palpitations and leg swelling. Gastrointestinal: Negative for abdominal pain, blood in stool, constipation, diarrhea, nausea and vomiting. Genitourinary: Negative for difficulty urinating, dysuria and frequency. Musculoskeletal: Negative for arthralgias, back pain, joint swelling and myalgias. Skin: Negative for rash and wound. Neurological: Negative for dizziness, tremors, seizures, syncope and headaches. Psychiatric/Behavioral: Negative for behavioral problems, self-injury and suicidal ideas. The patient is nervous/anxious. Hematological: Does not bruise/bleed easily. Endocrine: Negative for polydipsia, polyphagia and polyuria. Allergic/Immunologic: Negative for environmental allergies and food allergies. PAST MEDICAL HISTORY Past Medical History: Diagnosis Date Abnormal chest CT Age-related osteoporosis without current pathological fracture ([facility]) 07/25/2023 Anemia Anxiety At low risk for fall Chronic pain Constipation COVID-19 virus detected Depression with anxiety 08/14/2023 10/20/22: MARY 7 score=18, PHQ 9 score=18 Elevated serum creatinine 07/27/2023 Elevated serum glucose Environmental and seasonal allergies 08/20/2023 MARY (generalized anxiety disorder) ([facility]) 07/22/2023 GERD (gastroesophageal reflux disease) 08/14/2023 HLD (hyperlipidemia) ([facility]) 08/14/2023 Hypokalemia Hypomagnesemia 08/14/2023 Hypothyroidism (acquired) ([facility]) 07/03/2023 Insomnia 08/14/2023 Lumbar spine pain Major depressive disorder with single episode, in remission (HCC) ([facility]) 07/03/2023 Migraines ([facility]) 08/14/2023 Mild episode of recurrent major depressive disorder (HCC) ([facility]) Obesity with body mass index (BMI) of 30.0 to 39.9 09/11/2023 THOMAS (obstructive sleep apnea) 08/14/2023 sleep study: AHI 7, minimum oxygen saturation is 87% Osteoporosis ([facility]) 08/14/2023 Postmenopause RA (rheumatoid arthritis) ([facility]) 08/14/2023 Seizures ([facility]) 08/14/2023 Spondylosis, lumbosacral 08/14/2023 Thyroid enlargement ([facility]) 09/11/2023 Thyroid nodule ([facility]) 09/11/2023 Tobacco user 08/14/2023 Past Surgical History: Procedure Laterality Date APPENDECTOMY 02/23/2007 family history includes Arthritis in her mother; Cancer in her mother; Heart disease in her father, maternal grandmother, and another family member; Hypertension in her father, mother, and another family member; Hypothyroidism in her mother; Rheum arthritis in her mother. OBJECTIVE: Visit Vitals Pulse 71 Temp 97.5 F (Temporal) Resp 18 Ht 5' 7 Wt 183 lb 3.2 oz SpO2 (!) 87% BMI 28.69 kg/m Smoking Status Every Day BSA 1.98 m Physical Exam Vitals and nursing note reviewed. Constitutional: General: She is not in acute distress. Appearance: Normal appearance. HENT: Head: Normocephalic and atraumatic. Right Ear: External ear normal. Left Ear: External ear normal. Nose: Nose normal. Mouth/Throat: Mouth: Mucous membranes are moist. Pharynx: No oropharyngeal exudate or posterior oropharyngeal erythema. Comments: adentuous Eyes: Extraocular Movements: Extraocular movements intact. Conjunctiva/sclera: Conjunctivae normal. Neck: Vascular: No carotid bruit. Cardiovascular: Rate and Rhythm: Normal rate and regular rhythm. Pulses: Normal pulses. Heart sounds: Normal heart sounds. Pulmonary: Effort: Pulmonary effort is normal. Breath sounds: Normal breath sounds. No wheezing or rales. Abdominal: General: Bowel sounds are normal. There is no distension. Palpations: Abdomen is soft. There is no mass. Tenderness: There is no abdominal tenderness. Musculoskeletal: General: Normal range of motion. Cervical [...] normal. Judgment: Judgment normal. ASSESSMENT AND PLAN: No follow-ups on file. Problem List Items Addressed This Visit Hypothyroidism (acquired) ([facility]) Will recheck in next few weeks to see if needs dose change MARY (generalized anxiety disorder) ([facility]) Feels meds are working great Seizures ([facility]) Will cont topirimate, but monitor Osteoporosis ([facility]) Will start fosamax, when ok from dental provider Tobacco user RA (rheumatoid arthritis) ([facility]) Continue with rheumatolgist Depression with anxiety Stable on current meds Obesity with body mass index (BMI) of 30.0 to 39.9 RESOLVED: Epilepsy ([facility]) - Primary Continue topirimate Will monitor Abnormal weight gain Has completed # 3 months of adipex Total weight loss: 14 pounds OARRS reviewed Relevant Medications phentermine (Adipex-P) 37.5 MG tablet documented in this encounter [facility] 04-02-2024 History of Present illness Narrative Associated Problem(s): Tobacco user The patient has been advised of the [...] for 40 years Start with 21mg patch Associated Problem(s): Chronic bronchitis (CMS/HCC) Continue the use of anoro and albuterol Associated Problem(s): Seizures (CMS/HCC) No recent seizures Continue current meds Pt was able to sisal picker her adipex last week. Pt need a refill on all her meds. Images from the original note were not included. Tanja Carrero is a 58 y.o. female presents with chief complaint of No chief complaint on file. HPI: Depression and anxiety: no SI/HI/Hallucinations, sleeping: does well with current regimine, no chest pain/pressure, no palpitations, occ anxiety symptoms. Other nieto feels good Seizures: cont topamax, no grand mal Breathing: cough-clear, occ wheezing, worse with humidity. Albuterol: once in a great while Thyroid: good Smoking: wants patches, smokes [id number] years SUBJECTIVE: MEDICATIONS: Current Outpatient Medications Medication Instructions albuterol HFA 90 mcg/act inhaler 2 puffs, Inhalation, Every 6 hours PRN ARIPiprazole (ABILIFY) 5 mg, Oral, Daily atorvastatin (LIPITOR) 40 mg, Oral, Nightly cetirizine (ZYRTEC) 10 mg, Oral, Daily cholecalciferol (VITAMIN D-3) 2,000 Units, Oral, Daily cyclobenzaprine (FLEXERIL) 5 mg, Oral, Nightly PRN denosumab (PROLIA) 60 mg, Subcutaneous, Once, Every 6 months fluticasone (Flonase) 50 MCG/ACT nasal spray 2 sprays, Each Nostril, Daily levothyroxine (SYNTHROID) 50 mcg, Oral, Daily before breakfast magnesium oxide (MAG-OX) 400 mg, Oral, Daily omeprazole (PRILOSEC) 40 mg, Oral, Daily before breakfast phentermine (ADIPEX-P) 37.5 mg, Oral, Daily before breakfast QUEtiapine (SEROQUEL) 150 mg, Oral, Nightly sertraline [...] REVIEW OF SYMPTOMS: Review of Systems Constitutional: Negative for appetite change, chills and fever. HENT: Negative for congestion, ear pain and sore throat. Eyes: Negative for pain, discharge, redness and visual disturbance. Respiratory: Positive for cough and wheezing. Negative for shortness of breath. Cardiovascular: Negative for chest pain, palpitations and leg swelling. Gastrointestinal: Negative for abdominal pain, blood in stool, constipation, diarrhea, nausea and vomiting. Genitourinary: Negative for difficulty urinating, dysuria and frequency. Musculoskeletal: Negative for arthralgias, back pain, joint swelling and myalgias. Skin: Negative for rash and wound. Neurological: Negative for dizziness, tremors, seizures, syncope and headaches. Psychiatric/Behavioral: Negative for behavioral problems, self-injury and suicidal ideas. The patient is nervous/anxious. Hematological: Does not bruise/bleed easily. Endocrine: Negative for polydipsia, polyphagia and polyuria. Allergic/Immunologic: Negative for environmental allergies and food allergies. PAST MEDICAL HISTORY Past Medical History: Diagnosis Date Abnormal chest CT Age-related osteoporosis without current pathological fracture ([facility]) 07/25/2023 Anemia Anxiety At low risk for fall Chronic pain Constipation COVID-19 virus detected Depression with anxiety 08/14/2023 10/20/22: MARY 7 score=18, PHQ 9 score=18 Elevated serum creatinine 07/27/2023 Elevated serum glucose Environmental and seasonal allergies 08/20/2023 MARY (generalized anxiety disorder) ([facility] [place]) 07/22/2023 GERD (gastroesophageal reflux disease) 08/14/2023 HLD (hyperlipidemia) ([facility]) 08/14/2023 Hypokalemia Hypomagnesemia 08/14/2023 Hypothyroidism (acquired) ([facility]) 07/03/2023 Insomnia 08/14/2023 Lumbar spine pain Major depressive disorder with single episode, in remission (HCC) ([facility]) 07/03/2023 Migraines ([facility]) 08/14/2023 Mild episode of recurrent major depressive disorder (HCC) ([facility] [place] [facility]) Obesity with body mass index (BMI) of 30.0 to 39.9 09/11/2023 THOMAS (obstructive sleep apnea) 08/14/2023 sleep study: AHI 7, minimum oxygen saturation is 87% Osteoporosis ([facility] [place]) 08/14/2023 Postmenopause RA (rheumatoid arthritis) ([facility] [place]) 08/14/2023 Seizures ([facility]) 08/14/2023 Spondylosis, lumbosacral 08/14/2023 Thyroid enlargement ([facility] [place]) 09/11/2023 Thyroid nodule ([facility] [place]) 09/11/2023 Tobacco user 08/14/2023 Past Surgical History: Procedure Laterality Date APPENDECTOMY 02/23/2007 family history includes Arthritis in her mother; Cancer in her mother; Heart disease in her father, maternal grandmother, and another family member; Hypertension in her father, mother, and another family member; Hypothyroidism in her mother; Rheum arthritis in her mother. OBJECTIVE: Visit Vitals BP 106/80 (BP Location: Left arm, Patient Position: Sitting, BP Cuff Size: Adult long) Pulse 105 Temp 97.8 F (Temporal) Resp 18 Ht 5' 7 Wt 189 lb SpO2 100% BMI 29.60 kg/m Smoking Status Every Day BSA 2.01 m Physical Exam Vitals and nursing note reviewed. Constitutional: General: She is not in acute distress. Appearance: Normal appearance. HENT: Head: Normocephalic and atraumatic. Right Ear: External ear normal. Left Ear: External ear normal. Nose: Nose normal. Mouth/Throat: Mouth: Mucous membranes are moist. Eyes: Extraocular Movements: Extraocular movements intact. Conjunctiva/sclera: Conjunctivae normal. Cardiovascular: Rate and Rhythm: Normal rate and regular rhythm. Pulses: Normal pulses. Heart sounds: Normal heart sounds. Pulmonary: Effort: Pulmonary effort is normal. Breath sounds: Normal breath sounds. Abdominal: General: Bowel sounds are normal. There is no distension. Palpations: Abdomen is soft. There is no mass. Tenderness: There is no abdominal tenderness. Musculoskeletal: General: Normal range of motion. Cervical back: Normal range of motion and neck supple. Skin: General: Skin is warm and dry. Capillary Refill: Capillary refill takes 2 to 3 seconds. Findings: No rash. Neurological: General: No focal deficit present. Mental Status: She is alert and oriented to person, place, and time. Psychiatric: Mood and Affect: Mood normal. Behavior: Behavior normal. Thought Content: Thought content normal. Judgment: Judgment normal. ASSESSMENT AND PLAN: No follow-ups on file. Problem List Items Addressed This Visit Hypothyroidism (acquired) (CMS/HCC) Relevant Medications levothyroxine (Synthroid) 50 MCG tablet MARY (generalized anxiety disorder) (CMS/HCC) Relevant Medications sertraline (Zoloft) 100 MG tablet Mixed hyperlipidemia (CMS/HCC) Relevant Medications atorvastatin (Lipitor) 40 MG tablet RESOLVED: Anxiety and depression (CMS/HCC) Relevant Medications QUEtiapine (SEROquel) 50 MG tablet Seizures (CMS/HCC) - Primary No recent seizures Continue current meds Relevant Medications topiramate (Topamax) 100 MG tablet topiramate (Topamax) 25 MG tablet GERD (gastroesophageal reflux disease) Relevant Medications omeprazole (PriLOSEC) [address] capsule Spondylosis, lumbosacral Relevant Medications cyclobenzaprine (Flexeril) 5 MG tablet Osteoporosis (CMS/HCC) Tobacco user The patient has been advised of the [...] for 40 years Start with 21mg patch Relevant Medications nicotine (Nicoderm, Step 1) 21 MG/24HR patch RA (rheumatoid arthritis) (CMS/HCC) Migraines (CMS/HCC) Hypomagnesemia Relevant Medications magnesium oxide (Mag-Ox) 400 (240 Mg) MG tablet Vitamin D deficiency Relevant Medications cetirizine (ZyrTEC) 10 MG tablet cholecalciferol (Vitamin D-3) 50 MCG (2000 UT) capsule Environmental and seasonal allergies Relevant Medications cetirizine (ZyrTEC) 10 MG tablet fluticasone (Flonase) 50 MCG/ACT nasal spray Chronic bronchitis (CMS/HCC) Continue the use of anoro and albuterol Relevant Medications albuterol HFA 90 mcg/act inhaler Umeclidinium-Vilanterol (Anoro Ellipta) 62.5-25 MCG/ACT aerosol powder Other Visit Diagnoses Major depressive disorder with single episode, in remission (HCC) (CMS/[facility]) Relevant Medications ARIPiprazole (Abilify) 5 MG tablet sertraline (Zoloft) 100 MG tablet documented in this encounter [facility] 03-19-2024 Miscellaneous Notes Patient called in stating hydroxychloroquine was making her shake & feel dizzy/lightheaded when standing/ Patient states she stopped taking the medication 4 days ago & no longer feels the shaking/ dizziness.Patient states she does think her RA symptoms are kicking in. Patient asked what else could she take now? Patient called in stating she also needs a refill of flexeril. documented in this encounter [facility] 03-19-2024 Telephone encounter Note Patient called in stating hydroxychloroquine was making her shake & feel dizzy/lightheaded when standing/ Patient states she stopped taking the medication 4 days ago & no longer feels the shaking/ dizziness.Patient states she does think her RA symptoms are kicking in. Patient asked what else could she take now? [facility] 03-19-2024 Telephone encounter Note Patient called in stating she also needs a refill of flexeril. [facility] 12-27-2023 History of Present illness Narrative Images from the original note were not included. [address] [id number] Date of Service: 12/27/2023 Chief Complaint: Joint pain SUBJECTIVE: Tanja Carrero is a 58 y.o. female who came to rheumatology clinic in follow-up evaluation of possible underlying autoimmune disease. The problem has been present for several months. Patient has history of dyslipidemia, hypothyroidism, GERD, migraine headaches, seizure disorder, anxiety/depression, cervical spine and lumbar spine degenerative disc disease and used to be followed by pain specialist. Patient was seen by PCP for having more joint pain and found to have positive ELOY. Current Symptoms include pain of left knee, right knee, left hip, right hip, lumbar spine, and cervical spine. Onset was gradual. The symptoms are of moderate severity. They are made worse by: cold exposure, sitting, standing, and walking. They are helped by arthritis medications. Associated symptoms include: She has hx of photosensitivity, no dry eye/mouth, no recurrent oral/nasal ulcer, she has Raynaud's, no DVT/PE, she had miscarriage and normal in the past, no pleurisy. Her energy is low, denies patchy hair loss. Previously used rheumatologic medications include NSAIDS - Problems: none. Limitation on activities include: difficulty with walking and difficulty with ADLs. Rheumatology Family Hx: no family hx related to rheumatology noted. Previous Meds tried: Neurontin: didn't work. Previous Procedures: REVIEW OF SYSTEMS: CONSTITUTIONAL: Admits: [] Weight Loss [] Fever [] Frequent Night Sweats OPHTHALMOLOGIC: Admits: [] Glaucoma [] History or Current Inflammatory Eye Disease [] Cataracts ENT: Admits: [] Oral/Nasal Ulcers [] epistaxis [] Recurrent Sinusitis [] Dry Eyes [] Dry mouth CARDIOVASCULAR: Admits: [] Chest pain [] Pericarditis/Pleuritis [] Palpitations [] Edema RESPIRATORY: Admits: [] hemoptysis [] Dyspnea on Exertion [] Cough [] Wheezing GASTROINTESTINAL: Admits: [] Bloody Stool [] Diarrhea [] Vomitting GENITOURINARY: Admits: [] Blood in urine [] Genital Ulcers [] Burning/pain with urination MUSCULOSKELETAL: Admits: [] Muscle Pain [x] Joint Pain INTEGUMENTARY: Admits: [] Skin changes [] Sclerodactyly [] Raynauds [] Photosensitivity [] Alopecia NEUROLOGIC: Admits: [] Recurrent Headaches [] Limb Weakness [] Numbness/Tingling PSYCHIATRIC: Admits: [] Insomnia [x] Depression [x] Anxiety ENDOCRINE: Admits: [] Thyroid abnormalities HEMATOLOGY/LYMPH: Admits: [] Notable Swollen Lymph Nodes [] History of Cytopenias [] Bruising tendency [] History of DVT/PE All non checked boxes, patient denies. All other 10 point ROS reviewed and negative. PHYSICAL EXAMINATION: Constitutional: There were no vitals taken for this visit.: reviewed Comfortable, pleasant, no acute distress Eyes: Conjunctiva clear and moist, eyelids without lesions. Extraocular movements fully intact. Ears/Nose/Mouth/Throat: External inspection of ears/nose is normal - no scars, lesions, masses No oral ulcers or lesions on mucosa of inner mouth, tongue. Neck: Symmetrical, tongue midline, no masses, no lymphadenopathy, no thyromegaly Respiratory: Inspiratory and expiratory effort normal. Clear to auscultation bilaterally. No crackles or wheezes. Cardiovascular: Palpation of heart reveals normal PMI. Auscultation: regular rate rhythm, no murmurs/rubs/gallops. Carotid arteries symmetric and 2+. No edema of extremities Gastrointestinal: Soft, nontender, bowel sounds in all quadrants. No hepatosplenomegaly on palpation. Lymphatic: No lymphadenopathy in neck Neurologic: Facial muscles symmetric and of normal strength. Tongue is midline. Dermatologic: Inspection and palpation of skin and subcutaneous tissue of all four extremities without rashes Nailfold capillary exam normal Psychiatric: Normal affect. Judgement/insight intact. Musculoskeletal: Neck: Full ROM. no swelling, No tenderness, Shoulder: Bilateral full active ROM. no swelling, No tenderness, Elbows: Full ROM. no swelling, No tenderness, Wrists: Full ROM. no swelling, No tenderness, Hands: Full ROM. no swelling, No tenderness, Hips: Normal ROM. No swelling, No tenderness, Knees: Normal ROM, no swelling, No tenderness, Feet: Full ROM. no swelling, No tenderness, Ankles: Normal ROM,no swelling, No tenderness, Spine: no tenderness throughout spine, no sacroiliac joint tenderness Labs & Imaging: Labs and Imaging reviewed and discussed with the patient during the visit. Lab Results Component Value Date C3 114 02/23/2023 C4 14 (L) 02/23/2023 No results found for: WBC , HGB , HCT , MCV , PLT No results found for: CREATININE , BUN , NA , K , CL , CO2 No results found for: ALT , AST , GGT , ALKPHOS , LABBILI Lab Results Component Value Date SEDRATE 14 02/23/2023 Lab Results Component Value Date CRP 0.3 02/23/2023 No results found. ASSESSMENT/PLAN: Diagnoses and all orders for this visit: Undifferentiated connective tissue disease - The ELOY was checked by PCP as pt has lots of pain. - She has hx of photosensitivity, no dry eye/mouth, no recurrent oral/nasal ulcer, she has Raynaud's, no DVT/PE, she had miscarriage and normal in the past, no pleurisy. Her energy is low, denies patchy hair loss - Based on history and ph/ex, few sign and symptoms of connective tissue disease. - serologies are negative but she has low complement level. Treating as UCTD and started her on Plaquenil and she is doing fine. DDD (degenerative disc disease), cervical DDD (degenerative disc disease), lumbar - she used to be followed by pain clinic and getting injections - neck x-ray showed muscle spasm. Try muscle relaxer and refer to PT. Fibromyalgia - She complains of lots of body ache and pain. - Symptoms are worse with daily activity and stress. - She has ineffective sleep. Some headaches but not often, good appetite but complains of constipation. - Exam is benign except of having 14/18 tender point. - symptoms are related to Fibromyalgia. - Cymbalta, Neurontin and Lyrica can be considered. Muscle relaxer can be helpful in patients with Fibromyalgia. - Handouts about Fibro and the Flyer for Support group is given to the patient. Trochanteric bursitis of both hips - severe pain which interrupts her sleep - she had a steroid injection in January 2023 - referred to physical therapy before. Tried injection 08/29/2023 with good help. Medication monitoring encounter I have explained potential side effects of Plaquenil including short term acute vision changes, nausea, vomiting, weight loss, skin discoloration, contracts paralegal risk of retinal toxicity and need for annual retinal eye exams Follow up in 6 months. Total time spent with the patient face to face was 30 minutes which included obtaining and reviewing history, performing an exam, educating and counseling the patient, communicating test results to the patient. Preparing to see the patient (reviewing all results, history, medications, my office notes, other physician notes), ordering tests/medications/referrals, documenting in the patient's health record time spent was 10 minutes This note was created with the assistance of a speech recognition program. While intending to generate a timely document that accurately reflects the content of the visit, no guarantee can be provided that every grammatical or spelling mistake has been or will be identified or corrected. Thank you for your understanding. Any information carried forward was reviewed, updated, and is pertinent to the current visit [facility] Dr. Cristian Szymanski M.D. [address] [address] Office: [phone] 12/27/2023 documented in this encounter [facility] 08-29-2023 History of Present illness Narrative Images from the original note were not included. [address] [facility] [address] [facility] [id number] Date of Service: 08/29/2023 Chief Complaint: Joint pain SUBJECTIVE: Tanja Carrero is a 57 y.o. female who came to rheumatology clinic in follow-up evaluation of possible underlying autoimmune disease. The problem has been present for several months. Patient has history of dyslipidemia, hypothyroidism, GERD, migraine headaches, seizure disorder, anxiety/depression, cervical spine and lumbar spine degenerative disc disease and used to be followed by pain specialist. Patient was seen by PCP for having more joint pain and found to have positive ELOY. Current Symptoms include pain of left knee, right knee, left hip, right hip, lumbar spine, and cervical spine. Onset was gradual. The symptoms are of moderate severity. They are made worse by: cold exposure, sitting, standing, and walking. They are helped by arthritis medications. Associated symptoms include: She has hx of photosensitivity, no dry eye/mouth, no recurrent oral/nasal ulcer, she has Raynaud's, no DVT/PE, she had miscarriage and normal in the past, no pleurisy. Her energy is low, denies patchy hair loss. Previously used rheumatologic medications include NSAIDS - Problems: none. Limitation on activities include: difficulty with walking and difficulty with ADLs. Rheumatology Family Hx: no family hx related to rheumatology noted. Previous Meds tried: Neurontin: didn't work. Previous Procedures: REVIEW OF SYSTEMS: CONSTITUTIONAL: Admits: [] Weight Loss [] Fever [] Frequent Night Sweats OPHTHALMOLOGIC: Admits: [] Glaucoma [] History or Current Inflammatory Eye Disease [] Cataracts ENT: Admits: [] Oral/Nasal Ulcers [] epistaxis [] Recurrent Sinusitis [] Dry Eyes [] Dry mouth CARDIOVASCULAR: Admits: [] Chest pain [] Pericarditis/Pleuritis [] Palpitations [] Edema RESPIRATORY: Admits: [] hemoptysis [] Dyspnea on Exertion [] Cough [] Wheezing GASTROINTESTINAL: Admits: [] Bloody Stool [] Diarrhea [] Vomitting GENITOURINARY: Admits: [] Blood in urine [] Genital Ulcers [] Burning/pain with urination MUSCULOSKELETAL: Admits: [] Muscle Pain [x] Joint Pain INTEGUMENTARY: Admits: [] Skin changes [] Sclerodactyly [] Raynauds [] Photosensitivity [] Alopecia NEUROLOGIC: Admits: [] Recurrent Headaches [] Limb Weakness [] Numbness/Tingling PSYCHIATRIC: Admits: [] Insomnia [x] Depression [x] Anxiety ENDOCRINE: Admits: [] Thyroid abnormalities HEMATOLOGY/LYMPH: Admits: [] Notable Swollen Lymph Nodes [] History of Cytopenias [] Bruising tendency [] History of DVT/PE All non checked boxes, patient denies. All other 10 point ROS reviewed and negative. PHYSICAL EXAMINATION: Constitutional: BP 142/82 Resp 18 Ht 170.2 cm (5' 7.01 ) Wt 90.3 kg (199 lb) BMI 31.16 kg/m : reviewed Comfortable, pleasant, no acute distress Eyes: Conjunctiva clear and moist, eyelids without lesions. Extraocular movements fully intact. Ears/Nose/Mouth/Throat: External inspection of ears/nose is normal - no scars, lesions, masses No oral ulcers or lesions on mucosa of inner mouth, tongue. Neck: Symmetrical, tongue midline, no masses, no lymphadenopathy, no thyromegaly Respiratory: Inspiratory and expiratory effort normal. Clear to auscultation bilaterally. No crackles or wheezes. Cardiovascular: Palpation of heart reveals normal PMI. Auscultation: regular rate rhythm, no murmurs/rubs/gallops. Carotid arteries symmetric and 2+. No edema of extremities Gastrointestinal: Soft, nontender, bowel sounds in all quadrants. No hepatosplenomegaly on palpation. Lymphatic: No lymphadenopathy in neck Neurologic: Facial muscles symmetric and of normal strength. Tongue is midline. Dermatologic: Inspection and palpation of skin and subcutaneous tissue of all four extremities without rashes Nailfold capillary exam normal Psychiatric: Normal affect. Judgement/insight intact. Musculoskeletal: Neck: Full ROM. no swelling, No tenderness, Shoulder: Bilateral full active ROM. no swelling, No tenderness, Elbows: Full ROM. no swelling, No tenderness, Wrists: Full ROM. no swelling, No tenderness, Hands: Full ROM. no swelling, No tenderness, Hips: Normal ROM. No swelling, No tenderness, Knees: Normal ROM, no swelling, No tenderness, Feet: Full ROM. no swelling, No tenderness, Ankles: Normal ROM,no swelling, No tenderness, Spine: no tenderness throughout spine, no sacroiliac joint tenderness Labs & Imaging: Labs and Imaging reviewed and discussed with the patient during the visit. Lab Results Component Value Date C3 114 02/23/2023 C4 14 (L) 02/23/2023 No results found for: WBC , HGB , HCT , MCV , PLT No results found for: CREATININE , BUN , NA , K , CL , CO2 No results found for: ALT , AST , GGT , ALKPHOS , LABBILI Lab Results Component Value Date SEDRATE 14 02/23/2023 Lab Results Component Value Date CRP 0.3 02/23/2023 No results found. ASSESSMENT/PLAN: Diagnoses and all orders for this visit: Undifferentiated connective tissue disease - The ELOY was checked by PCP as pt has lots of pain. - She has hx of photosensitivity, no dry eye/mouth, no recurrent oral/nasal ulcer, she has Raynaud's, no DVT/PE, she had miscarriage and normal in the past, no pleurisy. Her energy is low, denies patchy hair loss - Based on history and ph/ex, few sign and symptoms of connective tissue disease. - serologies are negative but she has low complement level. Treating as UCTD and started her on Plaquenil and she is doing fine. Rheumatoid factor positive - she is found to have low titer positive RF - she has tenderness on most of her joints - CCP were negative - it might be related to the underlying CTD. Trying Plaquenil DDD (degenerative disc disease), cervical DDD (degenerative disc disease), lumbar - she used to be followed by pain clinic and getting injections - check imaging. She had tried Neurontin before and didn't help. Discussed about Lyrica. Fibromyalgia - She complains of lots of body ache and pain. - Symptoms are worse with daily activity and stress. - She has ineffective sleep. Some headaches but not often, good appetite but complains of constipation. - Exam is benign except of having 14/18 tender point. - symptoms are related to Fibromyalgia. - Cymbalta, Neurontin and Lyrica can be considered. Muscle relaxer can be helpful in patients with Fibromyalgia. - Handouts about Fibro and the Flyer for Support group is given to the patient. Trochanteric bursitis of both hips - severe pain which interrupts her sleep - she had a steroid injection in January 2023 - referred to physical therapy before. Retry the injection 08/29/2023 Right shoulder rotator cuff tendinitis - referring to physical therapy Medication monitoring encounter I have explained potential side effects of Plaquenil including short term acute vision changes, nausea, vomiting, weight loss, skin discoloration, contracts paralegal risk of retinal toxicity and need for annual retinal eye exams Rheumatology Procedure Site: Bilateral trochanteric bursa Date/Time: 08/29/2023 12:45 PM Performed by: Cristian Szymanski Authorized by: Cristian Szymanski Written Consent obtained?: Yes Risks and benefits: Risks, benefits and alternatives were discussed Patient states understanding of procedures being performed: Yes Patient's understanding of procedure matches consent: Yes Procedure consent matches procedure scheduled: Yes Relevant documents present and verified: Yes Test results available and properly labeled: Yes Site marked: Yes Imaging studies available: No Patient identity confirmed: Verbally with patient Time out: Immediately prior to the procedure a time out was called Indications: Pain Needle size: 25 G Ultrasound guidance: No Approach: lateral Lidocaine HCL 1% amount (ml): 4/2 Depomedrol amount (mg): 40 Patient tolerance: Patient tolerated the procedure well with no immediate complications Procedure was completed Vital signs stable during the procedure Follow up in 4 months. Total time spent with the patient face to face was 30 minutes which included obtaining and reviewing history, performing an exam, educating and counseling the patient, communicating test results to the patient. Preparing to see the patient (reviewing all results, history, medications, my office notes, other physician notes), ordering tests/medications/referrals, documenting in the patient's health record time spent was 10 minutes This note was created with the assistance of a speech recognition program. While intending to generate a timely document that accurately reflects the content of the visit, no guarantee can be provided that every grammatical or spelling mistake has been or will be identified or corrected. Thank you for your understanding. Any information carried forward was reviewed, updated, and is pertinent to the current visit [facility] Dr. Cristian Szymanski M.D. [address] [place] [address] [address] [place] [address] Office: [phone] 08/29/2023 [facility] PROCEDURE: XR ANKLE LT MIN 3 V, XR FOOT LT MIN 3 VIEWS COMPARISON: 11/23/2022 HISTORY: Pain of left ankle joint FINDINGS: BONES:Deformity of the distal fibula likely representing a subacute healing fracture. Subtle contour deformity and sclerosis base of the first and second metatarsals, remote. Stable remote healing fractures. No new fracture or dislocation. Diffuse permeative pattern consistent with osteopenia SOFT TISSUES:Negative. No visible soft tissue swelling. EFFUSION:None visible. OTHER: Negative. IMPRESSION: Stable healing fractures Electronically authenticated by: NATACHA NOVAK Date: 2022-12-13 17:20 [facility] 12-13-2022 Note PROCEDURE: XR ANKLE LT MIN 3 V, XR FOOT LT MIN 3 VIEWS COMPARISON: 11/23/2022 HISTORY: Pain of left ankle joint FINDINGS: BONES:Deformity of the distal fibula likely representing a subacute healing fracture. Subtle contour deformity and sclerosis base of the first and second metatarsals, remote. Stable remote healing fractures. No new fracture or dislocation. Diffuse permeative pattern consistent with osteopenia SOFT TISSUES:Negative. No visible soft tissue swelling. EFFUSION:None visible. OTHER: Negative. IMPRESSION: Stable healing fractures Electronically authenticated by: NATACHA NOVAK Date: 2022-12-13 17:20 [facility] 11-24-2022 Note PROCEDURE: XR FOOT L T MIN 3 VIEWS, XR ANKLE LT MIN 3 V COMPARISON: 08/10/2022 HISTORY: Pain FINDINGS: BONES:Stable contour deformity base of the first and second metatarsals. Healing no new fracture or dislocation. Diffuse osteopenia. Stable degenerative changes of the midfoot. SOFT TISSUES:Negative. No visible soft tissue swelling. EFFUSION:None visible. OTHER: Negative. IMPRESSION: Stable healing fractures base of the first and second metatarsals Electronically authenticated by: NATACHA NOVAK Date: 2022-11-24 07:36 [facility] 11-24-2022 Note PROCEDURE: XR FOOT L T MIN 3 VIEWS, XR ANKLE LT MIN 3 V COMPARISON: 08/10/2022 HISTORY: Pain FINDINGS: BONES:Stable contour deformity base of the first and second metatarsals. Healing no new fracture or dislocation. Diffuse osteopenia. Stable degenerative changes of the midfoot. SOFT TISSUES:Negative. No visible soft tissue swelling. EFFUSION:None visible. OTHER: Negative. IMPRESSION: Stable healing fractures base of the first and second metatarsals Electronically authenticated by: NATACHA NOVAK Date: 2022-11-24 07:36 [facility] 11-15-2022 Note ORAL SURGERY PROCEDU RE ROOM NOTE [facility] Surgical Product(s): Routine extraction teeth #'s 17, 32 PMH: Reviewed, no change. Antibiotic prophylaxis indicated/taken: not applicable Discussed risks, benefits, and alternatives of treatment. All of the patient's questions were answered, and informed consent was obtained: yes Reviewed procedure and complications associated with extractions ,including treatment options and no treatment. Opportunity given to ask all desired questions. Pertinent and more common complications of extractions discussed with the patient; pain, swelling, bruising, bleeding, infection (that may require further treatment such as hospitalizations), possible permanent numbness of the tongue, gums, teeth, lip, and chin, injury to adjacent structures (tooth, lip, cheek, jaw bone), damage to adjacent teeth, development of permanent TMJ symptoms/dysfunction, jaw fracture at time of surgery or afterwards, decision to leave root tips behind, displacement of tooth (or portion of) into adjacent spaces (such as sinus, floor of mouth, throat) and the development of sinus symptoms. Complications are not limited to the above and may include others that are less common. Pre-op Diagnosis: Caries [[id number]] PROCEDURE TIME OUT CHECK LIST 1. Radiograph is correctly matched to the patient,diagnostic quality, correctly oriented for laterality: Yes 2. Time out performed confirming correct surgical site and/or involved teeth verified by the patient and the surgeon: Yes Anesthesia: 2% Xylocaine with 1/100,000 epinephrine: 2 carpules and 0.5% Bupivicaine: 2 carpules Attending: Krystian Munoz DMD, MD Resident: N/A Circulating Nurse: None Assistants: DONAL Hartleycertified professional controller in Detail: Simple extraction tooth # 17 and 32 ; reflected mucoperiosteal cuff around tooth #17 and 32, atraumatic delivery with elevator and forcep. Inspected socket, followed by curettage, saline irrigation. Single simple interrupted suture placed at sites #17, 32. Pressure gauze for hemostasis. Patient tolerated procedure well. Complications: none Specimens: None Estimated blood loss: Minimal (<5 ml) Disposition: Home Krystian Munoz DMD, MD [facility] 08-11-2022 Note PROCEDURE: XR FOOT L T MIN 3 VIEWS, XR ANKLE LT MIN 3 V HISTORY: Pain in left foot ; follow-up fractures of first and second metatarsals and lateral malleolus COMPARISON: XR foot left 07/05/2022, XR ankle left 07/05/2022 FINDINGS: BONES:Ongoing bone healing of medial corner fracture at base of first metatarsal, and transverse fracture at base of second metatarsal. Ongoing bone healing of lateral malleolus fracture. No change in alignment. SOFT TISSUES:No visible soft tissue swelling. EFFUSION:None visible. OTHER: Negative. IMPRESSION: 1. Stable nondisplaced fractures with ongoing bone healing. No acute findings. Electronically authenticated by: CHARLES URRUTIA Date: 2022-08-11 10:18 [facility] 08-11-2022 Note PROCEDURE: XR FOOT L T MIN 3 VIEWS, XR ANKLE LT MIN 3 V HISTORY: Pain in left foot ; follow-up fractures of first and second metatarsals and lateral malleolus COMPARISON: XR foot left 07/05/2022, XR ankle left 07/05/2022 FINDINGS: BONES:Ongoing bone healing of medial corner fracture at base of first metatarsal, and transverse fracture at base of second metatarsal. Ongoing bone healing of lateral malleolus fracture. No change in alignment. SOFT TISSUES:No visible soft tissue swelling. EFFUSION:None visible. OTHER: Negative. IMPRESSION: 1. Stable nondisplaced fractures with ongoing bone healing. No acute findings. Electronically authenticated by: CHARLES URRUTIA Date: 2022-08-11 10:18 [facility] 07-18-2022 History of Present illness Narrative [facility] PATIENT VISIT CHIEF COMPLAINT: Pain and [place] Teeth HISTORY OF PRESENT ILLNESS: 56 year old female with PMH significant for H/O seizures (~once a year; most recent was 06/21), hypothyroidism, and tobacco use presents to [facility] clinic as a referral from an outside provider for the evaluation and extraction of wisdom teeth #17, 32. Pt states that her lower wisdom teeth have cracked and been giving a lot of pain and that she can't eat or even brush her teeth. Pt endorses waxing and waning pain originating from the teeth listed on the referral that limits her ability to chew, function normally, and perform oral hygiene. PAST MEDICAL HISTORY: 56 yrs old White female No past medical history on file. Patient Active Problem List: Ankle fracture, bimalleolar, closed, left, initial encounter [J29.212A] COVID-19 virus infection [U07.1] Disorientation [R41.0] Disturbance of skin sensation [R20.9] Encephalopathy due to COVID-19 virus [U07.1, G93.49] Epileptic seizure (HCC) [G40.909] Headache [R51.9] Hypokalemia [E87.6] Migraine [G43.909] Raynaud disease [I73.00] Multiple fractures of foot, left, closed, initial encounter [S92.902A] Seizure (HCC) [R56.9] Tobacco abuse [Z72.0] Hypothyroidism [E03.9] MEDICATIONS: Current Outpatient Medications Medication Sig Dispense Refill gabapentin (NEURONTIN) 300 MG capsule 1 (one) capsule by mouth as directed, start with 1 at bedtime for... (REFER TO PRESCRIPTION NOTES). topiramate (TOPAMAX) 25 MG tablet topiramate 25 mg tablet take 1 tablet by mouth twice a day topiramate (TOPAMAX) 100 MG tablet sertraline (ZOLOFT) 100 MG tablet Take 100 mg by mouth daily. cetirizine (ZyrTEC) 10 MG tablet atorvastatin (LIPITOR) 10 MG tablet busPIRone (BUSPAR) 10 MG tablet take 1 tablet by mouth three times a day for anxiety QUEtiapine (SEROQUEL) 100 MG tablet levothyroxine (SYNTHROID) 25 MCG tablet Anoro Ellipta 62.5-25 MCG/ACT AEPB inhalation powder inhale 1 puff by mouth and INTO THE LUNGS once daily fluticasone (FLONASE) 50 mcg/act nasal inhaler No current facility-administered medications for this visit. ALLERGIES: Patient has no allergy information on record. SURGICAL HX: Unknown spinal surgery No complications to anesthesia SOCIAL HX: Cigarettes: 1 ppd since 18 yo ETOH: very occasional CLINICAL EXAMINATION Extraoral examination: No significant findings No s/s of infection, redness or tenderness to palpation No facial asymmetry or swelling No appreciable LAD No popping/clicking/crepitus of TMJ b/l No tenderness to palpation of temporalis or masseter asymptomatic function Range of motion WNL CN V and VII intact Intraoral examination: No s/s of infection Moist, pink mucosa with erythema around dentition with plaque accumulation Oropharynx clear No pathological soft lesions appreciated Oral cancer screen negative Occlusion stable Oral hygiene fair Teeth #17 and 32 - grossly decayed and fractured, both TTP RADIOGRAPHIC INTERPRETATION: [employer] Film taken on 07/18/2022, and Retained in our clinic files Caries # 17 and # 32 Fractured # 17 and # 32 DIAGNOSIS: Caries TREATMENT: Exam, [employer] evaluated, and Awaiting Insurance authorization. PLAN: 56 year old female with PMH significant for H/O seizures (~once a year; most recent was 06/21), hypothyroidism, and tobacco use presents with symptomatic, grossly decayed and fractured teeth #17 and 32 that require extraction to prevent the spread of infection and future associated problems. The procedure will be performed under local anesthesia in clinic. Extractions #'s 17, 32 and with local anesthesia Cristobal Hargrove DMD Images from the original note were not included. Patient was identified by name and date of . ELAINA TALAMANTES RN documented in this encounter [facility] 07-05-2022 Note PROCEDURE: XR ANKLE LT MIN 3 V, XR FOOT LT MIN 3 VIEWS HISTORY: Pain of left ankle joint ; follow-up lateral malleolus fracture and first and second metatarsal fractures COMPARISON: XR left foot and ankle 06/21/2022 FINDINGS: BONES:No displaced fracture of the lateral malleolus at level of ankle mortise without appreciable change in alignment or callus formation. Stable alignment and slight increased density of the small corner fracture of the first metatarsal and transverse fracture through base of second metatarsal. SOFT TISSUES:Mild dorsal soft tissue swelling. EFFUSION:None visible. OTHER: Negative. IMPRESSION: 1. Stable alignment and ongoing early bone healing of the lateral malleolus fracture and fractures of the first and second metatarsals. Electronically authenticated by: CHARLES URRUTIA Date: 2022-07-05 15:06 [facility] 07-05-2022 Note PROCEDURE: XR ANKLE LT MIN 3 V, XR FOOT LT MIN 3 VIEWS HISTORY: Pain of left ankle joint ; follow-up lateral malleolus fracture and first and second metatarsal fractures COMPARISON: XR left foot and ankle 06/21/2022 FINDINGS: BONES:No displaced fracture of the lateral malleolus at level of ankle mortise without appreciable change in alignment or callus formation. Stable alignment and slight increased density of the small corner fracture of the first metatarsal and transverse fracture through base of second metatarsal. SOFT TISSUES:Mild dorsal soft tissue swelling. EFFUSION:None visible. OTHER: Negative. IMPRESSION: 1. Stable alignment and ongoing early bone healing of the lateral malleolus fracture and fractures of the first and second metatarsals. Electronically authenticated by: CHARLES URRUTIA Date: 2022-07-05 15:06 [facility] 06-22-2022 Note PROCEDURE: XR ANKLE LT MIN 3 V, XR FOOT LT MIN 3 VIEWS HISTORY: Pain of left ankle joint ; follow-up lateral malleolus fracture; follow-up first and second metatarsal fractures COMPARISON: XR left ankle and foot 2 06/02/2022 FINDINGS: BONES:Transverse fracture through the lateral malleolus at level of ankle joint with increased density of the fracture line; no displacement. Nondisplaced fractures involving the proximal medial corner is of the first and second metatarsals with increased density of the fracture lines. Moderate degenerative changes of the tarsal-metatarsal joints of all 5 digits. SOFT TISSUES:Mild soft tissue swelling of ankle and foot. EFFUSION:None visible. OTHER: Negative. IMPRESSION: 1. Nondisplaced early healing fractures of the lateral malleolus and the first and second metatarsals. Electronically authenticated by: CHARLES URRUTIA Date: 2022-06-22 07:06 [facility] 06-22-2022 Note PROCEDURE: XR ANKLE LT MIN 3 V, XR FOOT LT MIN 3 VIEWS HISTORY: Pain of left ankle joint ; follow-up lateral malleolus fracture; follow-up first and second metatarsal fractures COMPARISON: XR left ankle and foot 2 06/02/2022 FINDINGS: BONES:Transverse fracture through the lateral malleolus at level of ankle joint with increased density of the fracture line; no displacement. Nondisplaced fractures involving the proximal medial corner is of the first and second metatarsals with increased density of the fracture lines. Moderate degenerative changes of the tarsal-metatarsal joints of all 5 digits. SOFT TISSUES:Mild soft tissue swelling of ankle and foot. EFFUSION:None visible. OTHER: Negative. IMPRESSION: 1. Nondisplaced early healing fractures of the lateral malleolus and the first and second metatarsals. Electronically authenticated by: CHARLES URRUTIA Date: 2022-06-22 07:06 [facility] 06-02-2022 Note PROCEDURE: XR ANKLE LT MIN 3 V, XR FOOT LT MIN 3 VIEWS COMPARISON: None. HISTORY: Pain of left ankle joint FINDINGS: BONES:Acute transverse fracture of the lateral malleolus with distraction up to 2.5 mm. Acute fractures at the base of the first and second metatarsals likely both intra-articular. No dislocation. SOFT TISSUES:Diffuse soft tissue swelling of the ankle and foot EFFUSION:None visible. OTHER: Negative. IMPRESSION: Acute transverse fracture lateral malleolus Acute intra-articular fractures base of the first and second metatarsals Electronically authenticated by: NATACHA NOVAK Date: 2022-06-02 18:33 [facility] 06-02-2022 Note PROCEDURE: XR ANKLE LT MIN 3 V, XR FOOT LT MIN 3 VIEWS COMPARISON: None. HISTORY: Pain of left ankle joint FINDINGS: BONES:Acute transverse fracture of the lateral malleolus with distraction up to 2.5 mm. Acute fractures at the base of the first and second metatarsals likely both intra-articular. No dislocation. SOFT TISSUES:Diffuse soft tissue swelling of the ankle and foot EFFUSION:None visible. OTHER: Negative. IMPRESSION: Acute transverse fracture lateral malleolus Acute intra-articular fractures base of the first and second metatarsals Electronically authenticated by: NATACHA NOVAK Date: 2022-06-02 18:33 [facility] 05-26-2022 History of Present illness Narrative Discharge instructions given to patient and spouse. Verbalized understanding. Discharged to home. Images from the original note were not included. Internal Medicine Resident Progress Note Patient: Tanja Carrero Date of : 1965 Unit/Bed:[id number]-A Acct: [id number] PCP: MINDA YEBOAH Date of Admission: 05/24/2022 Assessment/Plan: #Multiple fractures of the left foot and ankle: Patient was cooking dinner and fell down and had possible psychogenic nonepileptic seizure. Unsure whether patient hit head or had a fall. Woke up with excruciating pain in left leg. Taken to ED. EtOH level was 0.013 patient endorses of having some alcohol. CT foot left W. Wo contrast: Mildly comminuted not significantly displaced fracture of the distal fibular metaphysis. Comminuted fractures base of first second third and fourth metatarsals. Several fracture fragments noted adjacent to the medial cuneiform. Nondisplaced fracture through the lateral aspect of the cuboid and through the medial dorsal aspect of the navicular. X-ray ankle left: Fracture of the lateral aspect of the base of the lateral malleolus of left fibula. X-ray foot left: Evidence of displaced comminuted fracture at the medial aspect of the base of the left first metatarsal bone. Transverse fracture through the base of the second metatarsal bones evidence of comminuted fractures in the base of the third metatarsal bone. Based on x-ray and CT foot patient was recommended to transfer to [facility]. Orthopedic surgery was consulted: Patient did not want any surgical intervention and after further discussion with patient. N.p.o. diet status removed s/p further discussion with orthopedics. - Plan is to wean to nonoperative treatment of left leg and foot and ankle. - Patient left lower extremity should be nonweightbearing. She will have boot to left lower extremity, splint to be removed and boot has been ordered. - PT/OT consulted:. - Orthopedic signed off. With follow-up with Dr. Mayes as outpatient in 4 weeks - Patient continues to have pain in left lower leg currently on IV pain medications and goal is to take patient off IV. #Shingles herpes zoster on left lower back: Patient has been having burning sensation over the last week on her lower back. At the time thought she was having UTI symptoms. Burning pain sensation has now decreased and for the last couple of days has been changed to itching. After examining rash, it does not cross midline. Could be shingles. - Start patient on Acyclovir 800 mg 5 times daily for 7 days #Psychogenic nonepileptic seizures: Patient states she was diagnosed 5 years ago. She was worked up and had EEG monitoring done. Found to have psychogenic nonepileptic seizures. Is on Topamax for this history and migraines. States previous episode was over 1 year ago. Has headaches and neck pain prior to seizure occurring. At this time she did not have both symptoms and happened abruptly. Significant other left room and found patient on the ground. She was not having any tonic, clonic or jerking behavior. After arousing patient she was mildly confused. But had no tongue bite loss of bladder or bowel control. Patient was stressed and slightly seemed down at time of interview. - EEG shows mild-moderate nonspecific encephalopathy with no epileptiform discharges identified. -Neurology consulted: At this time assume it is psychogenic nonepileptic seizure with continuation of topiramate for both treatment of this condition and migraine prevention. - Recommend outpatient follow-up with psychiatry and psychology. #Migraine on Topamax: Patient has Hx of migraines and is on Topamax 125 mg bid for prevention of migraines and psychogenic seizures. Was currently endorsing some back of head and neck pain. - Continue with home meds. #Acute electrolyte abnormalities: On admission at OSH K+ 3.5, EKG NSR at the time was given potassium tablets. On admission at [facility] K+ 5.3 and EKG NSR as well. Unconcerned we will continue monitoring. - Daily monitoring of BMP #Normocytic anemia: On admission at OSH H&H 10.7/31.6 likely secondary to inflammation. None - Daily monitoring of CBC #Major depressive disorder: Home medication of BuSpar 5 mg bid, Zoloft 100 mg and topiramate 125 mg bid. #HLD: Unsure of previous lipid panel. - If patient remains in hospital for greater amount of time can order lipid panel. - Resume home med of Lipitor 10 mg. #COPD: Unsure of Gold stage. No history of PFTs in chart. - Resume home med of Flonase 50 mcg and Stiolto #Hypothyroidism: - Resumed home med of Synthroid 25 mcg - If patient remains in hospital for greater amount of time can order TSH and free T4. #GERD: Resumed home med of Protonix 40 mg. #Tobacco usage: - Started patient on nicotine Derm patch. - Recommend smoking cessation. DVT prophylaxis: Lovenox 40 mg Expected discharge date: 05/26 Disposition: [x] Home [] TCU [] Rehab [] Psych [] SNF [] [facility] [] Other- === Chief Complaint: Transfer from [facility] Hospital Course: Tanja Carrero is a 56 y.o. female with PMHx of MDD, migraines, encephalopathy 2/2 COVID-19 and seizure Hx on Topamax who presents to [facility] after being transferred from [facility]. Information gathered from chart review and patient. Patient presented to [facility] ED after having a possible small seizure at home. She was cooking food and when SO left room she she had an episode. As SO stated at OSH that th he did not see any tonic or jerking behavior. No tongue bite, loss of bladder or bowel. SO woke up patient after finding her down and she was confused. Diagnosed approximately 5 years ago and seizures were well controlled on Topamax. Currently has not had any seizure episodes for at least a year. A year ago patient had staring spells but no other episodes since. Patient states in the past when seizures are about to start she has some neck and back of head pain that precipitates just prior to a seizure episode. Also found patient on floor of the house and unresponsive. For this seizure patient did not have any headaches, neck or back pain. Patient has Hx of migraines that are resolved with Topamax. Does admit to drinking prior to seizure episode. Has no recollection of incident just prior or after seizure. Patient is compliant with medication. Patient has extreme pain on left leg, foot and ankle. Unsure of when pain started or when she hurt her leg. At the OSH patient had CT foot left W. Wo contrast: Mildly comminuted not significantly displaced fracture of the distal fibular metaphysis. Comminuted fractures base of first second third and fourth metatarsals. Several fracture fragments noted adjacent to the medial cuneiform. Nondisplaced fracture through the lateral aspect of the cuboid and through the medial dorsal aspect of the navicular. X-ray ankle left: Fracture of the lateral aspect of the base of the lateral malleolus of left fibula. X-ray foot left: Evidence of displaced comminuted fracture at the medial aspect of the base of the left first metatarsal bone. Transverse fracture through the base of the second metatarsal bones evidence of comminuted fractures in the base of the third metatarsal bone. CT head W/O: No acute intracranial abnormality. At the diagnosis of closed fracture of distal end of left fibula and left foot, with multiple community fractures across the bases of metatarsals 1 through 4. With significant pain in her left lower extremity. It was discussed with orthopedist Dr. Alvarado and patient and family that she should be transferred to [facility]. At [facility] neurology and orthopedic surgery was consulted. Orthopedic surgery saw patient: After discussing images with patient she is against surgical intervention. Close treatment was discussed. Plan is to wean to nonoperative treatment of left leg and foot and ankle. Patient left lower extremity should be nonweightbearing. She will have boot to left lower extremity, splint to be removed and boot has been ordered. Orthopedic signed off. With follow-up with Dr. Mayes as outpatient in 4 weeks. Neurology performed routine 20-minute EEG: Abnormal awake EEG suggests mild-moderate nonspecific encephalopathy. No epileptiform discharges were identified. Absence of such activity on this record cannot conclusively rule out an epileptic disorder. Dr. Sullivan read EEG. At this time assume it is psychogenic nonepileptic seizure. Continue with topiramate for migraine prevention and follow-up outpatient with psychiatry and psychology. Ortho states patient is not a good candidate for surgery and would require longer term of nonweightbearing boot. Neurology states patient's episode was psychogenic nonepileptic seizure and recommended psychiatry and psychology as outpatient work-up. Continues to have pain in left leg and requires IV morphine goal is to take patient off IV pain meds and transition to oral pain meds. Subjective (past 24 hours): Patient seen and examined in room today laying down in bed comfortably. Patient did have pain in left leg and was requiring IV morphine. Was stating her back is itchy and has history of shingles. ROS: reviewed complete ROS unchanged unless otherwise stated in hospital course/subjective portion. Medications: Reviewed Infusion Medications sodium chloride Scheduled Medications polyethylene glycol 17 g Oral Daily [START ON 05/26/2022] enoxaparin 40 mg SubCUTAneous Daily atorvastatin 10 mg Oral Nightly busPIRone 5 mg Oral BID cetirizine 10 mg Oral Daily fluticasone 1 spray Each Nostril Daily levothyroxine 25 mcg Oral Daily pantoprazole 40 mg Oral Daily sertraline 100 mg Oral Daily topiramate 125 mg Oral BID tiotropium-olodaterol 2 puff Inhalation Daily sodium chloride flush 5-40 mL IntraVENous 2 times per day nicotine 1 patch TransDERmal Daily PRN Meds: albuterol sulfate HFA, sodium chloride flush, sodium chloride, ondansetron OR ondansetron, acetaminophen OR acetaminophen, potassium chloride OR potassium alternative oral replacement OR potassium chloride, magnesium sulfate, morphine OR morphine, HYDROcodone 5 mg - acetaminophen OR HYDROcodone 5 mg - acetaminophen, LORazepam Intake/Output Summary (Last 24 hours) at 05/25/2022 1833 Last data filed at 05/25/2022 1356 Gross per 24 hour Intake 440 ml Output 600 ml Net -160 ml Exam: BP 112/76 Pulse 98 Temp 98.1 F (36.7 C) (Oral) Resp 18 Ht 5' 7 (1.702 m) Wt 165 lb (74.8 kg) LMP 08/01/2012 SpO2 97% BMI 25.84 kg/m General appearance: No apparent distress, appears stated age. Eyes: PERRLA HENT: Head normal in appearance. External nares normal. Oral mucosa moist without lesions. Hearing grossly intact. Neck: Supple, with full range of motion. Trachea midline. No gross JVD appreciated. Respiratory: Normal effort. Clear to auscultation bilaterally. Cardiovascular: RRR with S1/S2 no murmurs. No lower extremity edema. Abdomen: Soft, non-tender, non-distended with normal bowel sounds. Musculoskeletal: No joint swelling or tenderness. Left leg in boot. Skin: Warm and dry. Rash on left lower back. Could be shingles. Neurologic: No focal sensory/motor deficits in the upper and lower extremities. Cranial nerves: grossly non-focal 2-12. Psychiatric: Alert and oriented, normal insight and thought content. Capillary Refill: Brisk,< 3 seconds. Peripheral Pulses: +2 palpable, equal bilaterally. Labs: Recent Labs 05/23/22224405/24/228 05/25/22 0416 WBC 7.3 7.8 6.6 HGB 10.7* 11.3* 10.7* HCT 31.6* 34.4* 32.6* PLT See Reflexed IPF Result 311 278 Recent Labs 05/23/22224405/24/22 1248 05/24/22 2232 NA 136 136 134* K 3.5* 5.3* 3.9 CL 102 100 98 CO2 19* 24 20* BUN 12 13 15 CREATININE 0.99* 1.0 1.0 CALCIUM 10.1 10.1 9.4 Recent Labs 05/23/22 2245 05/24/22 1248 AST 21 20 ALT 13 12 BILITOT 0.2* 0.7 ALKPHOS 104 112 No results for input(s): INR in the last 72 hours. No results for input(s): TROPONINT in the last 72 hours. No results for input(s): PROCAL in the last 72 hours. Lab Results Component Value Date/Time NITRU NEGATIVE 06/15/2021 11:04 AM WBCUA 0 TO 2 06/15/2021 11:04 AM BACTERIA NOT REPORTED 06/15/2021 11:04 AM RBCUA 0 TO 2 06/15/2021 11:04 AM SPECGRAV 1.015 06/15/2021 11:04 AM GLUCOSEU NEGATIVE 06/15/2021 11:04 AM Radiology (48 hours): XR ANKLE LEFT (MIN 3 VIEWS) Result Date: 05/24/2022 Fracture of the lateral aspect of the base of the lateral malleolus of left fibula without significant displacement. Moderate to marked soft tissue swelling at the lateral aspect of the left ankle joint. XR FOOT LEFT (MIN 3 VIEWS) Result Date: 05/24/2022 Evidence of displaced comminuted fracture at the medial aspect of base of the left 1st metatarsal bone. Transverse fracture through the base of the 2nd metatarsal bones. Evidence of comminuted fractures in the base of the 3rd metatarsal bone. There is no obvious subluxation or dislocation of the base of the metatarsal bones. RECOMMENDATION: For further evaluation, CT scan of left foot, suggested. CT Head W/O Contrast Result Date: 05/24/2022 No acute intracranial abnormality. CT FOOT LEFT WO CONTRAST Result Date: 05/25/2022 1. Mildly comminuted not significantly displaced fracture of the distal fibular metaphysis. No medial or posterior malleolar fracture. 2. Comminuted fractures involving the base of the 1st, 2nd, 3rd, and 4th metatarsals. 3. Not significantly displaced fracture involving the lateral cuneiform. 4. Several fracture fragments noted adjacent to the medial cuneiform, though felt more likely related to displaced metatarsal base fractures. 5. Nondisplaced fracture through the lateral aspect of the cuboid. 6. Nondisplaced fracture through the medial dorsal aspect of the navicular. DVT prophylaxis: [x] Lovenox [] SCDs [] SQ Heparin [] Encourage ambulation [] Already on Anticoagulation Diet: ADULT DIET; Regular Code Status: Full Code PT/OT: yes Tele: yes IVF: no Case was discussed with Attending, Dr. Carrillo Associated attestation - Dhruv Carrillo MD - 05/26/2022 9:55 AM EDT I have examined and assessed the patient independently and discussed the findings and my opinion with the treating trainee. I have thoroughly read the note. I agree with the physical exam, assessment and plan for treatment, with any exceptions listed below. EXCEPTIONS/ADDITIONAL COMMENTS: None; agree with details of exam and plan. May be able to go home soon. Signed By: Dhruv Carrillo M.D. ATTESTATION [facility] INPATIENT OCCUPATIONAL THERAPY [facility] ORTHOPEDICS 7K EVALUATION Time: Time In: 915 Time Out: 1002 Timed Code Treatment Minutes: 38 Minutes Minutes: 46 Date: 05/25/2022 Patient Name: Tanja Carrero, Gender: female : 1965 (56 y.o.) Referring Practitioner: Charles Martinez DO Diagnosis: Multiple Fractures of Foot, Left Additional Pertinent Hx: Tanja Carrero is a 56 y.o. female with PMHx of MDD, migraines, encephalopathy 2/2 COVID-19 and seizure Hx on Topamax who presents to [facility] after being transferred from [facility].Patient presented to [facility] ED after having a possible small seizure at home. She was cooking food and when SO left room she she had an episode. As SO stated at OSH that th he did not see any tonic or jerking behavior.SO woke up patient after finding her down and she was confused. Diagnosed approximately 5 years ago and seizures were well controlled on Topamax. Currently has not had any seizure episodes for at least a year. A year ago patient had staring spells but no other episodes since. Patient states in the past when seizures are about to start she has some neck and back of head pain that precipitates just prior to a seizure episode. Also found patient on floor of the house and unresponsive. For this seizure patient did not have any headaches, neck or back pain.Does admit to drinking prior to seizure episode. Patient has extreme pain on left leg, foot and ankle.Xray ankle left: Fracture of the lateral aspect of the base of the lateral malleolus of left fibula. X-ray foot left: Evidence of displaced comminuted fracture at the medial aspect of the base of the left first metatarsal bone. Transverse fracture through the base of the second metatarsal bones evidence of comminuted fractures in the base of the third metatarsal bone. CT head W/O: No acute intracranial abnormality. At the diagnosis of closed fracture of distal end of left fibula and left foot, with multiple community fractures across the bases of metatarsals 1 through 4. With significant pain in her left lower extremity. It was discussed with orthopedist Dr. Alvarado and patient and family that she should be transferred to [facility]. Orthopedic surgery saw patient:Plan is nonoperative treatment of left leg and foot and ankle. Patient left lower extremity should be nonweightbearing. She will have boot to left lower extremityNeurology performed routine 20-minute EEG: Abnormal awake EEG suggests mild-moderate nonspecific encephalopathy. No epileptiform discharges were identified. Absence of such activity on this record cannot conclusively rule out an epileptic disorder.follow-up outpatient with psychiatry and psychology. Restrictions/Precautions: Restrictions/Precautions: General Precautions, Fall Risk, Weight Bearing Left Lower Extremity Weight Bearing: Non Weight Bearing Required Braces or Orthoses Left Lower Extremity Brace: Boot Subjective Chart Reviewed: Yes, Orders, Progress Notes, History and Physical, Imaging Patient assessed for rehabilitation services?: Yes Subjective: RN Okayed OT session. Upon arrival patient was sitting up in bed. Pt was agreeable to OT session. Pain: 10/10: LLE Vitals: Vitals not assessed per clinical judgement, see nursing flowsheet Social/Functional History: Lives With: Spouse, Son, Daughter (son's fiance; 2 grandbaby (9mo, 16 y.o)) Type of Home: Trailer Home Layout: One level Home Access: Stairs to enter with rails Entrance Stairs - Number of Steps: 2 Entrance Stairs - Rails: Both Bathroom Shower/Tub: Tub/Shower unit Bathroom Toilet: Standard Bathroom Accessibility: Accessible Receives Help From: Family ADL Assistance: Independent Homemaking Assistance: Independent Ambulation Assistance: Independent Transfer Assistance: Independent Active Senior Customer Service Representative: Yes Mode of Transportation: Car Occupation: Unemployed VISION:WFL HEARING: WFL COGNITION: Decreased Safety Awareness RANGE OF MOTION: Bilateral Upper Extremity: WNL STRENGTH: Bilateral Upper Extremity: WNL SENSATION: WFL ADL: Bathing: Stand By Assistance and with increased time for completion. Seated on chair by sink. Upper Extremity Dressing: Stand By Assistance. To wayside emergency hospital gown. Lower Extremity Dressing: Stand By Assistance. Toileting: Stand By Assistance. Toilet Transfer: Contact Guard Assistance, with verbal cues , and with increased time for completion. From standard toilet . BALANCE: Sitting Balance: Independent. Standing Balance: Stand By Assistance. BED MOBILITY: Supine to Sit: Stand By Assistance Scooting: Stand By Assistance TRANSFERS: Sit to Stand: Stand By Assistance. Stand to Sit: Stand By Assistance. FUNCTIONAL MOBILITY: Assistive Device: Rolling Walker Assist Level: Contact Guard Assistance. Distance: To/from BR Fair pace, No LOB, maintained NWB LLE. Activity Tolerance: Patient tolerance of treatment: good. Assessment: This 56 year old female presents with Multiple fractures of Left foot. Pt demonstrates weakness, decreased balance, decrease safety awareness, decreased endurance. Pt is NWB of LLE. Pt requires skilled OT intervention to increase indep and safety with all self cares, transfers, mobility, and IADLs to return to PLOF. Without skilled OT intervention patient is at increased risk for falls, caregiver burden, and hospital readmission after discharge. Performance deficits / Impairments: Decreased functional mobility , Decreased strength, Decreased endurance, Decreased ADL status, Decreased high-level IADLs, Decreased balance Prognosis: Good Treatment Initiated: Treatment and education initiated within context of evaluation. Evaluation time included review of current medical information, gathering information related to past medical, social and functional history, completion of standardized testing, formal and informal observation of tasks, assessment of data and development of plan of care and goals. Treatment time included skilled education and facilitation of tasks to increase safety and independence with ADL's for improved functional independence and quality of life. Discharge Recommendations: Continue to assess pending progress, Home with assist PRN Patient Education: Patient Education Education Given To: Patient Education Provided: Role of Therapy, Plan of Care, Precautions, ADL Adaptive Strategies, Transfer Training Education Method: Demonstration, Verbal Barriers to Learning: None Education Outcome: Continued education needed Equipment Recommendations: Equipment Needed: Yes Mobility Devices: Walker, Wheelchair, ADL Assistive Devices ADL Assistive Devices: Toileting - 3-in-1 Commode Plan: Times Per Week: 6x Times Per Day: Once a day Current Treatment Recommendations: Strengthening, Balance training, Functional mobility training, Endurance training, Equipment evaluation, education, & procurement, Self-Care / ADL, Home management training, Safety education & training, Patient/Caregiver education & training. See long-term goal time frame for expected duration of plan of care. If no long-term goals established, a short length of stay is anticipated. Goals: Patient goals : Go Home Short Term Goals Time Frame for Short Term Goals: Until discharge Short Term Goal 1: Pt will complete BUE strengthening exercises with min vcs for technique to increase indep and endurance with all transfers and self cares. Short Term Goal 2: Pt will complete standing tolerance x 3 minutes with 1-2 UE release and S to increase indep and endurance with all sinkside grooming. Short Term Goal 3: Pt will complete functional mobility to/from BR with S while maintaining LLE NWB to increase indep and endurance with toileting. Short Term Goal 4: Pt will complete LB dressing with S and min vcs for safety to increase indep and endurance within home environment. Additional Goals?: No Following session, patient left in safe position with all fall risk precautions in place. [facility] INPATIENT PHYSICAL THERAPY EVALUATION [facility] ORTHOPEDICS 7K - 7K-01001-A Time In: 1043 Time Out: 1114 Timed Code Treatment Minutes: 23 Minutes Minutes: 31 Date: 05/25/2022 Patient Name: Tanja Carrero, Gender: female : 1965 (56 y.o.) Referring Practitioner: Charles Martinez DO Diagnosis: Multiple fractures of foot, left, closed, initial encounter Additional Pertinent Hx: Tanja Carrero is a 56 y.o. female with PMHx of MDD, migraines, encephalopathy 2/2 COVID-19 and seizure Hx on Topamax who presents to [facility] after being transferred from [facility].Patient presented to [facility] ED after having a possible small seizure at home. She was cooking food and when SO left room she she had an episode. As SO stated at OSH that th he did not see any tonic or jerking behavior.SO woke up patient after finding her down and she was confused. Diagnosed approximately 5 years ago and seizures were well controlled on Topamax. Currently has not had any seizure episodes for at least a year. A year ago patient had staring spells but no other episodes since. Patient states in the past when seizures are about to start she has some neck and back of head pain that precipitates just prior to a seizure episode. Also found patient on floor of the house and unresponsive. For this seizure patient did not have any headaches, neck or back pain.Does admit to drinking prior to seizure episode. Patient has extreme pain on left leg, foot and ankle.Xray ankle left: Fracture of the lateral aspect of the base of the lateral malleolus of left fibula. X-ray foot left: Evidence of displaced comminuted fracture at the medial aspect of the base of the left first metatarsal bone. Transverse fracture through the base of the second metatarsal bones evidence of comminuted fractures in the base of the third metatarsal bone. CT head W/O: No acute intracranial abnormality. At the diagnosis of closed fracture of distal end of left fibula and left foot, with multiple community fractures across the bases of metatarsals 1 through 4. With significant pain in her left lower extremity. It was discussed with orthopedist Dr. Alvarado and patient and family that she should be transferred to [facility]. Orthopedic surgery saw patient:Plan is nonoperative treatment of left leg and foot and ankle. Patient left lower extremity should be nonweightbearing. She will have boot to left lower extremityNeurology performed routine 20-minute EEG: Abnormal awake EEG suggests mild-moderate nonspecific encephalopathy. No epileptiform discharges were identified. Absence of such activity on this record cannot conclusively rule out an epileptic disorder.follow-up outpatient with psychiatry and psychology. Restrictions/Precautions: Restrictions/Precautions: General Precautions, Fall Risk, Weight Bearing Left Lower Extremity Weight Bearing: Non Weight Bearing Required Braces or Orthoses Left Lower Extremity Brace: Boot Subjective: Chart Reviewed: Yes Patient assessed for rehabilitation services?: Yes Family / Caregiver Present: No Subjective: RN approved session. pt pleasant and agreeable to therapy General: Overall Orientation Status: Within Functional Limits Vision: Within Functional Limits Hearing: Within functional limits Pain: 9/10: LLE Vitals: Vitals not assessed per clinical judgement, see nursing flowsheet Social/Functional History: Lives With: Spouse, Son, Daughter (son's fiance; 2 grandbaby (9mo, 16 y.o)) Type of Home: Trailer Home Layout: One level Home Access: Stairs to enter with rails Entrance Stairs - Number of Steps: 2 Entrance Stairs - Rails: Both ADL Assistance: Independent Homemaking Assistance: Independent Ambulation Assistance: Independent Transfer Assistance: Independent Active Senior Customer Service Representative: Yes OBJECTIVE: Range of Motion: Bilateral Lower Extremity: WFL Strength: Bilateral Lower Extremity: WFL Balance: Static Sitting Balance: Stand By Assistance Static Standing Balance: Stand By Assistance, with RW Bed Mobility: Supine to Sit: Stand By Assistance, with head of bed raised Sit to Supine: Stand By Assistance, with head of bed flat Transfers: Sit to Stand: Stand By Assistance Stand to Sit:Stand By Assistance Ambulation: Contact Guard Assistance Distance: 100' Surface: Level Tile Device:Rolling Walker Gait Deviations: Pt hopping on RLE, maintains NWB of LLE Stairs: Contact Guard Assistance, with verbal cues Number of Steps: 4 Height: 6 step with Bilateral Handrails Pt maintains NWB LLE good and hops on RLE up/down steps Functional Outcome Measures: Completed AM-[facility] Inpatient Mobility Raw Score : 18 AM-[facility] Inpatient T-Scale Score : 43.63 ASSESSMENT: Activity Tolerance: Patient tolerance of treatment: good. Pt with increased pain but tolerates well, eager to go home. Treatment Initiated: Treatment and education initiated within context of evaluation. Evaluation time included review of current medical information, gathering information related to past medical, social and functional history, completion of standardized testing, formal and informal observation of tasks, assessment of data and development of plan of care and goals. Treatment time included skilled education and facilitation of tasks to increase safety and independence with functional mobility for improved independence and quality of life. Assessment: Body Structures, Functions, Activity Limitations Requiring Skilled Therapeutic Intervention: Decreased functional mobility , Decreased endurance, Decreased balance, Decreased strength, Decreased posture Assessment: Tanja Carrero is a 56 y.o. female that presents with fall. she is ind prior to admission now requiring assist for basic mobility. Pt demonstrates a decrease in baseline by way of bed mobility, transfers and ambulation secondary to decreased activity tolerance, strength, fatigue, and balance deficits. Pt will benefit from skilled PT services throughout admission and beyond hospital discharge for improvements in functional mobility and in order to decrease fall risk and return pt to PLOF. Therapy Prognosis: Good Requires PT Follow-Up: Yes Discharge Recommendations: Discharge Recommendations: Home with assist PRN Patient Education: . Patient Education Education Given To: Patient Education Provided: Plan of Care, Role of Therapy, Precautions Education Method: Verbal Barriers to Learning: None Education Outcome: Verbalized understanding, Demonstrated understanding Equipment Recommendations: Equipment Needed: Yes Mobility Devices: Walker Walker: Rolling Plan: Current Treatment Recommendations: Strengthening, Gait training, Stair training, Functional mobility training, Balance training, Transfer training, Endurance training, Safety education & training General Plan: (6x O) Goals: Patient Goals : none stated Short Term Goals Time Frame for Short Term Goals: by discharge Short Term Goal 1: bed mobility with HOB flat, no rails, mod I for increased functional ind Short Term Goal 2: sit<>stand from various surfaces with LRD mod I for safe transfers Short Term Goal 3: ambulate 100' with LRD mod I for safe household distances Short Term Goal 4: navigate 2 steps with LRD mod I for safe enter/exit of home Halfway Goals Time Frame for Halfway Goals : NA d/t short ELOS Following session, patient left in safe position with all fall risk precautions in place. Dom Cardoso ([facility]) PT, DPT Patient decided wanted boot back on. Denies any further requests at this time. Patient demanded boot off for the night. Does not tolerate it. [facility] Neurodiagnostic Fastener Technologist Worksheet EEG Date: 05/24/2022 Name: Tanja Carrero : 1965 Age: 56 y.o. SEX: female ROOM: [facility]: [id number] Ordering Provider: Gerardo EEG Number: [id number] Time of Test: 1414 Hand: Right Sedation: no H.V. Done: Yes with fair effort Photic: Yes Sleep: Yes Drowsy: Yes Sleep Deprived: No Seizures observed: no Mentality: alert Clinical History:patient has history of migraines and seizures, last one a year ago. Taking Topamax 125mg Patient here after being found on ground unresponsive from suspected seizure. Patient does feel light headed when standing. CT 05/24/2022 Impression No acute intracranial abnormality. Past Medical History: Diagnosis Date Depression Encephalopathy due to COVID-19 virus 06/15/2021 Headache(784.0) Numbness and tingling Scheduled Meds: atorvastatin 10 mg Oral Nightly busPIRone 5 mg Oral BID cetirizine 10 mg Oral Daily fluticasone 1 spray Each Nostril Daily levothyroxine 25 mcg Oral Daily pantoprazole 40 mg Oral Daily sertraline 100 mg Oral Daily topiramate 125 mg Oral BID tiotropium-olodaterol 2 puff Inhalation Daily sodium chloride flush 5-40 mL IntraVENous 2 times per day nicotine 1 patch TransDERmal Daily enoxaparin 40 mg SubCUTAneous Daily Continuous Infusions: sodium chloride PRN Meds:.albuterol sulfate HFA, sodium chloride flush, sodium chloride, ondansetron OR ondansetron, polyethylene glycol, acetaminophen OR acetaminophen, potassium chloride OR potassium alternative oral replacement OR potassium chloride, magnesium sulfate, morphine OR morphine, HYDROcodone 5 mg - acetaminophen OR HYDROcodone 5 mg - acetaminophen, LORazepam Literature Professor: Dewayne Prabhakar 05/24/2022 A 56 year old admitted to [address] [place] [id number] from [facility]. Patient oriented to room, unit and plan [facility] care[facility]. 56 yo with 5yr hx of seizure on topamax, had a seizure tonight and fell in her kitchen, multiple fractures of her left foot. 1st seizure in over a year. Labs unremarkable, ETOH 0.013 had a couple glasses of wine. Head CT wnl, EKG wnl. Ortho agreed to consult , requested hospitalist admit due to seizure.Vitals 125/82, 82,18, 96% on room air. documented in this encounter [employer] [facility] [employer] Work Phone: 06-18-2021 History of Present illness Narrative Patient off the floor at this time. Wheeled down to front entrance via wheelchair and left in private auto. Spoke with at this time to update on discharge plans. Reviewed discharge paperwork with him due to patients slight confusion still. Will send paperwork with patient on discharge. Occupational Therapy Facility/Department: [facility] Daily Treatment Note NAME: Tanja Carrero : 1965 Date of Service: 06/18/2021 Discharge Recommendations: Continue to assess pending progress, IP Rehab, Subacute/[facility] Facility Assessment OT Education: ADL Adaptive Strategies; Transfer Training Patient Education: Educated on ADL sequencing Barriers to Learning: cognition-improved overall Activity Tolerance Activity Tolerance: Patient Tolerated treatment well Activity Tolerance: Improved tolerance/engagement when compared to previous sessions Safety Devices Type of devices: All fall risk precautions in place; Bed alarm in place; Call light within reach; Nurse notified; Left in bed Patient Diagnosis(es): The primary encounter diagnosis was Intractable vomiting with nausea, unspecified vomiting type. Diagnoses of COVID, Pneumonia of right lower lobe due to infectious organism, and Dehydration were also pertinent to this visit. has a past medical history of Depression, Encephalopathy due to COVID-19 virus, Headache(784.0), and Numbness and tingling. has a past surgical history that includes laparoscopy; Appendectomy (1987); section (2004); and Tubal ligation. Restrictions Restrictions/Precautions Restrictions/Precautions: General Precautions, Fall Risk, Isolation Subjective General Chart Reviewed: Yes Patient assessed for rehabilitation services?: Yes Response to previous treatment: Patient with no complaints from previous session Family / Caregiver Present: No Referring Practitioner: Kimmy Diagnosis: Covid-19 Subjective Subjective: Patient with no complaints of pain. Requesting to go home I am ready to get out of here . General Comment Comments: Pt supine in bed upon arrival. Pt had requested to go to restroom. Able to follow 1 step directions with extra time this date. Orientation Orientation Overall Orientation Status: Within Functional Limits Objective ADL Grooming: Stand by assistance; Increased time to complete UE Bathing: Stand by assistance; Increased time to complete LE Bathing: Stand by assistance UE Dressing: Stand by assistance LE Dressing: Contact guard assistance Additional Comments: Patient completed UB/LB bathing and dressing with some increased cues and time to complete. Significant improvement noted compared to a few days ago. CGA LB dressing, SBA for bathing/dressing for UB Balance Sitting Balance: Supervision Standing Balance: Stand by assistance Functional Mobility Functional - Mobility Device: No device Activity: To/from bathroom Assist Level: Stand by assistance Functional Mobility Comments: SBA for functional mobility to and from bathroom Bed mobility Supine to Sit: Stand by assistance Sit to Supine: Stand by assistance Plan Plan Times per week: 7 Times per day: Daily Current Treatment Recommendations: Strengthening, ROM, Balance Training, Functional Mobility Training, Endurance Training, Safety Education & Training, Patient/Caregiver Education & Training, Equipment Evaluation, Education, & procurement, Self-Care / ADL, Cognitive/Perceptual Training Goals Short term goals Short term goal 1: Patient to engage in self feeding c min A c <50% VC for initiation of task. Short term goal 2: Patient to engage in simple UB self care (grooming, dressing, bathing) c min A c <50% VC for initiated and engagement in self care. Short term goal 3: Patient to engage daily in BUE A/AA/PROM to maintian ROM throughout hospital stay. Short term goal 4: Patient to complete ADL transfers c Min A x 1 c improved safety. Therapy Time Individual Concurrent Group Co-treatment Time In 956 Time Out 1020 Minutes 23 Duyen Navarro OTR/L Growth Hacker at bedside for shift assessment. Patient helped off the commode and back into bed respirations are even and unlabored while on room air. Vitals obtained and assessment completed, see flowsheet for details. pt denies further needs at this time. Call light in reach, will continue to monitor. Patient had to be reminded through out the day to use call light instead of getting up per self. Patient denies pain when asked. IV site in right hand was removed as no longer patent. IV fluids currently running in the left AC. Patient did have loose stool on the floor early in shift. Valle catheter is patent and flowing with yellow/clear urine. called for update and happy that patient is semi able to hold conversation with him. Patient up to bathroom X3 with one assist, slightly unsteady gait noted. Physical Therapy Facility/Department: [facility] Daily Treatment Note NAME: Tanja Carrero : 1965 Date of Service: 06/17/2021 Discharge Recommendations: Continue to assess pending progress, Home with assist PRN, 24 hour supervision or assist Assessment Assessment: Supine B LE AAROM x15 with verbal and tactile cues to attempt to get pt to participate in ther ex with poor follow through. Following AAROM, pt returned to sleep. Treatment Diagnosis: Difficulty walking Prognosis: Good; Fair Decision Making: Medium Complexity REQUIRES PT FOLLOW UP: Yes Activity Tolerance Activity Tolerance: Patient limited by cognitive status Patient Diagnosis(es): The primary encounter diagnosis was Intractable vomiting with nausea, unspecified vomiting type. Diagnoses of COVID, Pneumonia of right lower lobe due to infectious organism, and Dehydration were also pertinent to this visit. has a past medical history of Depression, Encephalopathy due to COVID-19 virus, Headache(784.0), and Numbness and tingling. has a past surgical history that includes laparoscopy; Appendectomy (1987); section (2004); and Tubal ligation. Restrictions Restrictions/Precautions Restrictions/Precautions: General Precautions, Fall Risk, Isolation Subjective General Chart Reviewed: Yes Response To Previous Treatment: Patient unable to report, no changes reported from family or staff Family / Caregiver Present: No Referring Practitioner: SANDY Trujillo Subjective Subjective: Pt agreeable to bed exercises with encouragement. Denies pain. Pain Screening Patient Currently in Pain: No Vital Signs Patient Currently in Pain: No Orientation Orientation Overall Orientation Status: Impaired Cognition Objective Bed mobility Rolling to Left: Stand by assistance Ambulation Ambulation?: No Exercises Comments: Supine B LE AAROM x15, with some participation from pt at times. Verbal and tactile cues for patient to perform with poor follow through. Goals Short term goals Time Frame for Short term goals: 20 days Short term goal 1: Patient to complete sit/stand and stand pivot transfers mod. Ind with no LOB to decrease fall risk. Short term goal 2: Patient to ambulate 150ft with SUP and no AD with no LOB or fatigue to improve functional mobility. Short term goal 3: Patient to ascend/descend 3 steps with HRx1 and SUP to safely enter her home. Short term goal 4: Patient to tolerate 20-30 min of ther ex/act to improve functional strength. Plan Plan Times per week: 7 Times per day: Twice a day Current Treatment Recommendations: Strengthening, Neuromuscular Re-education, Home Exercise Program, ROM, Safety Education & Training, Balance Training, Endurance Training, Patient/Caregiver Education & Training, Functional Mobility Training, Transfer Training, Gait Training, Stair training Safety Devices Type of devices: All fall risk precautions in place, Bed alarm in place, Call light within reach, Nurse notified, Patient at risk for falls, Left in bed Therapy Time Individual Concurrent Group Co-treatment Time In 1559 Time Out 1612 Minutes 13 Dali Cook PTA Images from the original note were not included. [facility] - Telemedicine Progress Note COVID 19 Patient Today's Date and Time: 06/17/2021, 12:24 PM Impression : COVID 19 Confirmed Infection Covid tests: 06/14/21: Positive Altered mentation Possible left maxillary sinusitis Seizure history on Topamax Has not received the Covid vaccine Patient evaluated by Telemedicine. Requesting Institution: [facility] Provider Institution: [facility] Usman Zelaya Intermediary Person at [facility]: MAGDA Callejas Recommendations: Antibiotic treatment: Monitor off antibiotics Covid Rx: Remdesivir-contraindicated with MARY Decadron-Not indicated at this time Actemra-Not indicated at this time Regeneron monoclonal antibody administered 06/15/21 Monitor CRP Neurology consult recommended Medical Decision Making/Summary/Discussion:2020 Patient admitted with suspected COVID 19 infection Covid test confirmed positive. Infection Control Recommendations [place] Precautions Airborne isolation Droplet Isolation Antimicrobial Stewardship Recommendations Discontinuation of therapy Coordination of Outpatient Care: Estimated Length of IV antimicrobials:TBD Patient will need Midline Catheter Insertion: TBD Patient will need PICC line Insertion: No Patient will need: Home IV , Infusion Center, SNF, LTAC:TBD Patient will need outpatient wound care:No Chief complaint/reason for consultation: Concern for COVID infection History of Present Illness: Tanja Carrero is a 55 y.o.-year-old female who was initially admitted on 06/14/2021. Patient seen at the request of Dr. Oneal INITIAL HISTORY: Patient presented through ER with complaints of vomiting and confusion per family. She has not been out of bed in 3 days and also had a seizure a couple of days prior to presentation. She takes Topamax for a known seizure disorder. The patient had a positive Covid swab in the ED and MARY. She was confused to month and year. Imaging revealed RLL consolidation and possible left maxillary sinusitis. She has been oxygenating well on room air. She was given one dose of Decadron in the ED and was administered Regeneron monoclonal Antibody infusion on 06/15/21 Ammonia level is WDL Patient remains confused at time of consult. CT Head WO Contrast 06/14/21 Final Result 1. No acute intracranial abnormality. 2. Air-fluid level in the left maxillary sinus, possibly indicating sinusitis. CT ABDOMEN PELVIS W IV CONTRAST 06/14/21 Final Result Ill-defined small ground-glass parenchymal opacity in the right lower lobe is nonspecific, this could reflect infection, pneumonia or atelectasis. Correlate clinically. Follow-up CT chest in 6-8 weeks would be recommended after appropriate therapy has been administered to ensure resolution. Small hiatus hernia and patulous distal esophagus. Esophagitis/GERD could be considered. Otherwise, no acute process in the abdomen or pelvis. Patient admitted because of concerns with COVID 19. CURRENT EVALUATION : 06/17/2021 Afebrile VS stable The patient remains altered but is improved today and does not exhibit any respiratory distress. Hypokalemia today at 2.2 Creatinine is improving. MRI brain did not show any acute abnormality Patient exhibiting respiratory distress: No Respiratory secretions: No Patient receiving supplemental oxygen: No RR: 16-->20 02 sat: 99-->98 % FIO2: PEEP: QTc: NEWS Score: 0-4 Low risk group; 5-6: Medium risk group; 7 or above: High risk group Parameters 3 2 1 0 1 2 3 Age < 65 ? 65 RR ? 8 9-11 12-20 21-24 ? 25 O2 Sats ? 91 92-93 94-95 ? 96 Suppl O2 Yes No SBP ? 90 91-100 101-110 111-219 ? 220 HR ? 40 41-50 51-90 91-110 111-130 ? 131 Consciousness Alert Drowsiness, lethargy, or confusion Temperature ? 35.0 C (95.0 F) 35.1-36.0 C 95.1-96.9 F 36.1-38.0 C 97.0-100.4 F 38.1-39.0 C 100.5-102.3 F ? 39.1 C ? 102.4 F NEWS Score: 06/15/21: 3 Low risk Overall Daily Picture: Unchanged Presence of secondary bacterial Infection: No Additional antibiotics: no Labs, X rays reviewed: 06/17/2021 BUN:30-->21-->14 Cr:1.64-->1.10-->0.97 WBC:4.1-->3.0-->3.6 Hb:13.7-->10.2 Plat: 177-->101 Absolute Neutrophils:3.20 Absolute Lymphocytes:0.53 Neutrophil/Lymphocyte Ratio: 6 high risk CRP:20.2-->35.9 Ferritin:511 LDH: Pro Calcitonin: Cultures: Urine: 06/14/21: No growth Blood: Sputum : Wound: CXR: 06/14/21 CAT: 06/14/21 head Discussed with patient, RN, CC, IM. I have personally reviewed the past medical history, past surgical history, medications, social history, and family history, and I have updated the database accordingly. Past Medical History: Past Medical History: Diagnosis Date Depression Encephalopathy due to COVID-19 virus 06/15/2021 Headache(784.0) Numbness and tingling Past Surgical History: Past Surgical History: Procedure Laterality Date APPENDECTOMY 1987 SECTION 2004 LAPAROSCOPY TUBAL LIGATION Medications: enoxaparin 30 mg SubCUTAneous BID atorvastatin 10 mg Oral Daily busPIRone 5 mg Oral BID cetirizine 10 mg Oral Daily fluticasone 1 spray Each Nostril Daily levothyroxine 25 mcg Oral Daily pantoprazole 40 mg Oral QAM AC propranolol 40 mg Oral BID sertraline 100 mg Oral Daily topiramate 25 mg Oral BID umeclidinium-vilanterol 1 puff Inhalation Daily sodium chloride flush 5-40 mL IntraVENous 2 times per day vitamin D 50,000 Units Oral Daily ascorbic acid 2,000 mg Oral BID zinc sulfate 100 mg Oral Daily Social History: Social History Socioeconomic History Marital status: Spouse name: Not on file Number of children: Not on file Years of education: Not on file Highest education level: Not on file Occupational History Not on file Tobacco Use Smoking status: Current Every Day Smoker Packs/day: 1.00 Years: 20.00 Pack years: 20.00 Types: Cigarettes Smokeless tobacco: Never Used Substance and Sexual Activity Alcohol use: Yes Comment: occasional Drug use: No Sexual activity: Not on file Other Topics Concern Not on file Social History Narrative Not on file Social Determinants of Health Financial Resource Strain: Difficulty of Paying Living Expenses: Not on file Food Insecurity: Worried About Running Out of Food in the Last Year: Not on file Ran Out of Food in the Last Year: Not on file Transportation Needs: Lack of Transportation (Medical): Not on file Lack of Transportation (Non-Medical): Not on file Physical Activity: Days of Exercise per Week: Not on file Minutes of Exercise per Session: Not on file Stress: Feeling of Stress : Not on file Social Connections: Frequency of Communication with Friends and Family: Not on file Frequency of Social Gatherings with Friends and Family: Not on file Attends Mandaen Services: Not on file Active Member of Clubs or Organizations: Not on file Attends Club or Organization Meetings: Not on file Marital Status: Not on file Intimate Partner Violence: Fear of Current or Ex-Partner: Not on file Emotionally Abused: Not on file Physically Abused: Not on file Sexually Abused: Not on file Housing Stability: Unable to Pay for Housing in the Last Year: Not on file Number of Places Lived in the Last Year: Not on file Unstable Housing in the Last Year: Not on file Family History: Family History Problem Relation Age of Onset Arthritis Mother Heart Disease Father High Blood Pressure Father Heart Disease Maternal Grandmother Diabetes Maternal Grandmother Heart Disease Maternal Grandfather Heart Disease Paternal Grandmother Diabetes Paternal Grandmother Heart Disease Paternal Grandfather Diabetes Paternal Grandfather Allergies: Patient has no known allergies. Review of Systems: YARELIS altered mentation Constitutional: No fevers or chills. No systemic complaints Head: No headaches Eyes: No double vision or blurry vision. No conjunctival inflammation. ENT: No sore throat or runny nose.. No hearing loss, tinnitus or vertigo. Cardiovascular: No chest pain or palpitations.No Shortness of breath. No GARCIA Lung: No Shortness of breath or cough. No sputum production Abdomen: No nausea, vomiting, diarrhea, or abdominal pain.. No cramps. Genitourinary: No increased urinary frequency, or dysuria. No hematuria. No suprapubic or CVA pain Musculoskeletal: No muscle aches or pains. No joint effusions, swelling or deformities Hematologic: No bleeding or bruising. Neurologic: No headache, weakness, numbness, or tingling. Integument: No rash, no ulcers. Psychiatric: No depression. Endocrine: No polyuria, no polydipsia, no polyphagia. Physical Examination : Patient Vitals for the past 8 hrs: BP Temp Temp src Pulse Resp SpO2 06/17/21 0945 115/78 60 06/17/21 0700 122/67 97.5 F (36.4 C) Temporal 61 20 98 % General Appearance: Awake, alert, and in no apparent distress Head: Normocephalic, no trauma Eyes: Pupils equal, round, reactive to light; sclera anicteric; conjunctivae pink. No embolic phenomena. ENT: Oropharynx clear, without erythema, exudate, or thrush. No tenderness of sinuses. Mouth/throat: mucosa pink and moist. No lesions. Dentition in good repair. Neck:Supple, without lymphadenopathy. Thyroid normal, No bruits. Pulmonary/Chest: Clear to auscultation, without wheezes, rales, or rhonchi. No dullness to percussion. Cardiovascular: Regular rate and rhythm without murmurs, rubs, or gallops. Abdomen: Soft, non tender. Bowel sounds normal. No organomegaly All four Extremities: No cyanosis, clubbing, edema, or effusions. Neurologic: disoriented to place and time Skin: Warm and dry with good turgor.No signs of peripheral arterial or venous insufficiency. No ulcerations. No open wounds. Medical Decision Making -Laboratory: I have independently reviewed/ordered the following labs: CBC with Differential: Recent Labs 06/16/2162406/17/21 0540 WBC 3.0* 3.6 HGB 10.2* 11.6* HCT 30.3* 33.8* PLT 101* See Reflexed IPF Result LYMPHOPCT 22* 56* MONOPCT 3 6 BMP: Recent Labs 06/15/21 0620 06/15/21 0620 06/16/21 0625 06/16/21 0625 06/16/21 2300 06/17/21 0540 NA 134* < > 140 -- -- 139 K 3.2* < > 2.2* < > 2.9* 3.6* CL 105 < > 115* -- -- 110* CO2 10* < > 9* -- -- 16* BUN 30* < > 21* -- -- 14 CREATININE 1.64* < > 1.10* -- -- 0.97* MG 1.9 -- 1.6 -- -- -- < > = values in this interval not displayed. Hepatic Function Panel: Recent Labs 06/16/21 0625 06/17/21 0540 PROT 5.0* 6.4 LABALBU 3.0* 3.8 BILITOT <0.10* 0.37 ALKPHOS 44 53 ALT 10 16 AST 22 36* No results for input(s): RPR in the last 72 hours. No results for input(s): HIV in the last 72 hours. No results for input(s): BC in the last 72 hours. Lab Results Component Value Date MUCUS NOT REPORTED 06/15/2021 RBC 3.90 06/17/2021 TRICHOMONAS NOT REPORTED 06/15/2021 WBC 3.6 06/17/2021 YEAST NOT REPORTED 06/15/2021 TURBIDITY Clear 06/15/2021 Lab Results Component Value Date CREATININE 0.97 06/17/2021 GLUCOSE 90 06/17/2021 Medical Decision Making-Imaging: Narrative EXAMINATION: CT OF THE HEAD WITHOUT CONTRAST, 06/14/2021 3:19 pm TECHNIQUE: CT of the head was performed without the administration of intravenous contrast. Dose modulation, iterative reconstruction, and/or weight based adjustment of the mA/kV was utilized to reduce the radiation dose to as low as reasonably achievable. COMPARISON: None HISTORY: ORDERING SYSTEM PROVIDED HISTORY: Confusion TECHNOLOGIST PROVIDED HISTORY: Confusion Decision Support Exception - unselect if not a suspected or confirmed emergency medical condition->Emergency Medical Condition (MA) Is the patient ? No FINDINGS: BRAIN/VENTRICLES: There is no acute intracranial hemorrhage, mass effect or midline shift. No abnormal extra-axial fluid collection. The kirby-white differentiation is maintained without evidence of an acute infarct. There is no evidence of hydrocephalus. ORBITS: The visualized portion of the orbits demonstrate no acute abnormality. SINUSES: Air-fluid level is noted in the left maxillary sinus. Mastoid air cells are aerated. SOFT TISSUES/SKULL: No acute abnormality of the visualized skull or soft tissues. Impression 1. No acute intracranial abnormality. 2. Air-fluid level in the left maxillary sinus, possibly indicating sinusitis. Narrative EXAMINATION: CT OF THE ABDOMEN AND PELVIS WITH CONTRAST 06/14/2021 3:22 pm TECHNIQUE: CT of the abdomen and pelvis was performed with the administration of intravenous contrast. Multiplanar reformatted images are provided for review. Dose modulation, iterative reconstruction, and/or weight based adjustment of the mA/kV was utilized to reduce the radiation dose to as low as reasonably achievable. COMPARISON: None HISTORY: ORDERING SYSTEM PROVIDED HISTORY: Vomiting rlq pain TECHNOLOGIST PROVIDED HISTORY: Vomiting rlq pain Decision Support Exception - unselect if not a suspected or confirmed emergency medical condition->Emergency Medical Condition (MA) FINDINGS: Lower Chest: Small ill-defined ground-glass opacity at the periphery of the right lower lobe is nonspecific. Small hiatus hernia is noted. Organs: Small hepatic cysts noted measuring up to 14 mm. No concerning liver lesion. No calcified gallstones or biliary ductal dilatation. The spleen is normal in size without focal lesion. The pancreas and the adrenal glands are unremarkable. The kidneys enhance symmetrically without collecting system dilatation. Subcentimeter low-density in the right upper pole kidney, while too small to characterize, statistically likely reflects a tiny cyst. No concerning renal lesion. GI/Bowel: No bowel obstruction. The appendix is not definitely identified. However, there are no secondary findings to suggest the presence of acute appendicitis. Pelvis: The urinary bladder, uterus and adnexa are within normal limits. Peritoneum/Retroperitoneum: No abdominal lymphadenopathy or ascites. Bones/Soft Tissues: No acute osseous abnormality. Impression Ill-defined small ground-glass parenchymal opacity in the right lower lobe is nonspecific, this could reflect infection, pneumonia or atelectasis. Correlate clinically. Follow-up CT chest in 6-8 weeks would be recommended after appropriate therapy has been administered to ensure resolution. Small hiatus hernia and patulous distal esophagus. Esophagitis/GERD could be considered. Otherwise, no acute process in the abdomen or pelvis. Narrative EXAMINATION: ONE XRAY VIEW OF THE CHEST 06/14/2021 4:34 pm COMPARISON: None. HISTORY: ORDERING SYSTEM PROVIDED HISTORY: cough TECHNOLOGIST PROVIDED HISTORY: cough FINDINGS: Cardiomediastinal silhouette within normal limits. Focal right lower lobe consolidation. No definite effusion. No pneumothorax or subdiaphragmatic free air. No acute osseous abnormality identified. Impression Focal right lower lobe consolidation concerning for pneumonia. Medical Decision [id number]: Medical Decision Making-Other: Note: Labs, medications, radiologic studies were reviewed with personal review of films Large amounts of data were reviewed Discussed with nursing Staff, urban and regional planner Infection Control and Prevention measures reviewed All prior entries were reviewed Administer medications as ordered Prognosis: Guarded Discharge planning reviewed Thank you for allowing us to participate in the care of this patient. Please call with questions. Leonila Sampson, EXPERIENCE DESIGN DIRECTOR - PLASTIC SEWER ATTESTATION: I have discussed the case, including pertinent history and exam findings with the EXPERIENCE DESIGN DIRECTOR. I have evaluated the History, physical findings and pictures of the patient and the montemayor elements of the encounter have been performed by me. I have reviewed the laboratory data, other diagnostic studies and discussed them with the EXPERIENCE DESIGN DIRECTOR. I have updated the medical record where necessary. I agree with the assessment, plan and orders as documented by the EXPERIENCE DESIGN DIRECTOR. Rene Mccall MD. Pager: - Office: Physical Therapy Facility/Department: [facility] Daily Treatment Note NAME: Tanja Carrero : 1965 Date of Service: 06/17/2021 Discharge Recommendations: Continue to assess pending progress, Home with assist PRN, 24 hour supervision or assist Assessment Treatment Diagnosis: Difficulty walking Prognosis: Good; Fair Decision Making: Medium Complexity REQUIRES PT FOLLOW UP: Yes Activity Tolerance Activity Tolerance: Patient limited by cognitive status Patient Diagnosis(es): The primary encounter diagnosis was Intractable vomiting with nausea, unspecified vomiting type. Diagnoses of COVID, Pneumonia of right lower lobe due to infectious organism, and Dehydration were also pertinent to this visit. has a past medical history of Depression, Encephalopathy due to COVID-19 virus, Headache(784.0), and Numbness and tingling. has a past surgical history that includes laparoscopy; Appendectomy (1987); section (2004); and Tubal ligation. Restrictions Restrictions/Precautions Restrictions/Precautions: General Precautions, Fall Risk, Isolation Subjective General Chart Reviewed: Yes Response To Previous Treatment: Not applicable; Patient unable to report, no changes reported from family or staff Family / Caregiver Present: No Referring Practitioner: Alecia Pretty APRN-PLASTIC SEWER Subjective Subjective: Pt. agreeable to sit EOB and attempt to eat breakfast. Reports being cold but denies pain at this time. General Comment Comments: Pt. very confused and not able to respond to questions. Pt. unable to follow one step commands Orientation Orientation Overall Orientation Status: Impaired Cognition Objective Bed mobility Rolling to Left: Stand by assistance Rolling to Right: Stand by assistance Supine to Sit: Contact guard assistance Sit to Supine: Contact guard assistance Neuromuscular Education Neuromuscular Comments: Seated balance, unsupported with no noted LOB x5' Balance Sitting - Static: Good Sitting - Dynamic: Fair; +; Good; - Standing - Static: Fair; Good; - Standing - Dynamic: -; Fair G-Code OutComes Score AM-PAC Score Goals Short term goals Time Frame for Short term goals: 20 days Short term goal 1: Patient to complete sit/stand and stand pivot transfers mod. Ind with no LOB to decrease fall risk. Short term goal 2: Patient to ambulate 150ft with SUP and no AD with no LOB or fatigue to improve functional mobility. Short term goal 3: Patient to ascend/descend 3 steps with HRx1 and SUP to safely enter her home. Short term goal 4: Patient to tolerate 20-30 min of ther ex/act to improve functional strength. Plan Plan Times per week: 7 Times per day: Twice a day Current Treatment Recommendations: Strengthening, Neuromuscular Re-education, Home Exercise Program, ROM, Safety Education & Training, Balance Training, Endurance Training, Patient/Caregiver Education & Training, Functional Mobility Training, Transfer Training, Gait Training, Stair training Safety Devices Type of devices: All fall risk precautions in place, Bed alarm in place, Call light within reach, Nurse notified, Gait belt, Patient at risk for falls, Left in bed Therapy Time Individual Concurrent Group Co-treatment Time In 0815 Time Out 0826 Minutes 11 Tri Cooper PTA Pt ambulated to bathroom and back, was able to have some conversation with financial underwriter, unable to tell financial underwriter where she was but did follow commands to go to the bathroom, patient was tearful at times and stating she wanted to go home, financial underwriter gave comfort and educated patient that she needed to stay a while longer to get better, patient voiced understanding. Will continue to monitor. updated via telephone Pt resting in bed with eyes closed, unable to follow commands at this time, will answer name, unable to tell where she is but shakes her head that she knows where she is, lung sounds diminished, shakes head no for pain, FLACC 0, valle patent draining clear yellow urine, will continue to monitor. Occupational Therapy Facility/Department: [facility] Daily Treatment Note NAME: Tanja Carrero : 1965 Date of Service: 06/16/2021 Discharge Recommendations: Continue to assess pending progress, IP Rehab, Subacute/[facility] Facility Assessment OT Education: OT Role; Plan of Care Patient Education: therapist provided max verbal cues for sequencing Barriers to Learning: congitive status Activity Tolerance Activity Tolerance: Patient Tolerated treatment well Activity Tolerance: Pt did not actively engage in therapy session. Safety Devices Safety Devices in place: Yes Type of devices: All fall risk precautions in place; Bed alarm in place; Call light within reach; Nurse notified; Left in bed Patient Diagnosis(es): The primary encounter diagnosis was Intractable vomiting with nausea, unspecified vomiting type. Diagnoses of COVID, Pneumonia of right lower lobe due to infectious organism, and Dehydration were also pertinent to this visit. has a past medical history of Depression, Encephalopathy due to COVID-19 virus, Headache(784.0), and Numbness and tingling. has a past surgical history that includes laparoscopy; Appendectomy (1987); section (2004); and Tubal ligation. Restrictions Restrictions/Precautions Restrictions/Precautions: General Precautions, Fall Risk, Isolation Subjective General Chart Reviewed: Yes Patient assessed for rehabilitation services?: Yes Response to previous treatment: Patient with no complaints from previous session Family / Caregiver Present: No Referring Practitioner: Kimmy Diagnosis: Covid-19 Subjective Subjective: Patient oriented x 1,did not state pain levels. General Comment Comments: Pt supine in bed upon arrival. Pt had fecal matter on floor, all over the bed and all over her and her gown. Pt unable to follow one step commands. Orientation Objective ADL UE Bathing: Dependent/Total LE Bathing: Dependent/Total UE Dressing: Dependent/Total LE Dressing: Dependent/Total Toileting: Dependent/Total Additional Comments: Therapist cleaned patient up, applied new brief and new gown. Pt unable to follow one step commands but was cooperative. Plan Plan Times per week: 7 Times per day: Daily Current Treatment Recommendations: Strengthening, ROM, Balance Training, Functional Mobility Training, Endurance Training, Safety Education & Training, Patient/Caregiver Education & Training, Equipment Evaluation, Education, & procurement, Self-Care / ADL, Cognitive/Perceptual Training G-Code OutComes Score AM-PAC Score Goals Short term goals Short term goal 1: Patient to engage in self feeding c min A c <50% VC for initiation of task. Short term goal 2: Patient to engage in simple UB self care (grooming, dressing, bathing) c min A c <50% VC for initiated and engagement in self care. Short term goal 3: Patient to engage daily in BUE A/AA/PROM to maintian ROM throughout hospital stay. Short term goal 4: Patient to complete ADL transfers c Min A x 1 c improved safety. Therapy Time Individual Concurrent Group Co-treatment Time In 1430 Time Out 1453 Minutes 23 Kiah Coto OT Images from the original note were not included. [facility] - Telemedicine Progress Note COVID 19 Patient Today's Date and Time: 06/16/2021, 1:50 PM Impression : COVID 19 Confirmed Infection Covid tests: 06/14/21: Positive Altered mentation Possible left maxillary sinusitis Seizure history on Topamax Has not received the Covid vaccine Patient evaluated by Telemedicine. Requesting Institution: [facility] Provider Institution: [facility] Usman Zelaya Intermediary Person at [facility]: MAGDA Callejas Recommendations: Antibiotic treatment: Monitor off antibiotics Covid Rx: Remdesivir-contraindicated with MARY Decadron-Not indicated at this time Actemra-Not indicated at this time Regeneron monoclonal antibody administered 06/15/21 Monitor CRP Neurology consult recommended Medical Decision Making/Summary/Discussion:2020 Patient admitted with suspected COVID 19 infection Covid test confirmed positive. Infection Control Recommendations [place] Precautions Airborne isolation Droplet Isolation Antimicrobial Stewardship Recommendations Discontinuation of therapy Coordination of Outpatient Care: Estimated Length of IV antimicrobials:TBD Patient will need Midline Catheter Insertion: TBD Patient will need PICC line Insertion: No Patient will need: Home IV , Infusion Center, SNF, LTAC:TBD Patient will need outpatient wound care:No Chief complaint/reason for consultation: Concern for COVID infection History of Present Illness: Tanja Carrero is a 55 y.o.-year-old female who was initially admitted on 06/14/2021. Patient seen at the request of Dr. Oneal INITIAL HISTORY: Patient presented through ER with complaints of vomiting and confusion per family. She has not been out of bed in 3 days and also had a seizure a couple of days prior to presentation. She takes Topamax for a known seizure disorder. The patient had a positive Covid swab in the ED and MARY. She was confused to month and year. Imaging revealed RLL consolidation and possible left maxillary sinusitis. She has been oxygenating well on room air. She was given one dose of Decadron in the ED and was administered Regeneron monoclonal Antibody infusion on 06/15/21 Ammonia level is WDL Patient remains confused at time of consult. CT Head WO Contrast 06/14/21 Final Result 1. No acute intracranial abnormality. 2. Air-fluid level in the left maxillary sinus, possibly indicating sinusitis. CT ABDOMEN PELVIS W IV CONTRAST 06/14/21 Final Result Ill-defined small ground-glass parenchymal opacity in the right lower lobe is nonspecific, this could reflect infection, pneumonia or atelectasis. Correlate clinically. Follow-up CT chest in 6-8 weeks would be recommended after appropriate therapy has been administered to ensure resolution. Small hiatus hernia and patulous distal esophagus. Esophagitis/GERD could be considered. Otherwise, no acute process in the abdomen or pelvis. Patient admitted because of concerns with COVID 19. CURRENT EVALUATION : 06/16/2021 Afebrile VS stable The patient remains altered but does not exhibit any respiratory distress. Hypokalemia today at 2.2 Creatinine is improving. Pending results for MRI brain Discussed with Alecia Pretty APRN Patient exhibiting respiratory distress: No Respiratory secretions: No Patient receiving supplemental oxygen: No RR: 16 02 sat: 99 % FIO2: PEEP: QTc: NEWS Score: 0-4 Low risk group; 5-6: Medium risk group; 7 or above: High risk group Parameters 3 2 1 0 1 2 3 Age < 65 ? 65 RR ? 8 9-11 12-20 21-24 ? 25 O2 Sats ? 91 92-93 94-95 ? 96 Suppl O2 Yes No SBP ? 90 91-100 101-110 111-219 ? 220 HR ? 40 41-50 51-90 91-110 111-130 ? 131 Consciousness Alert Drowsiness, lethargy, or confusion Temperature ? 35.0 C (95.0 F) 35.1-36.0 C 95.1-96.9 F 36.1-38.0 C 97.0-100.4 F 38.1-39.0 C 100.5-102.3 F ? 39.1 C ? 102.4 F NEWS Score: 06/15/21: 3 Low risk Overall Daily Picture: Unchanged Presence of secondary bacterial Infection: No Additional antibiotics: no Labs, X rays reviewed: 06/16/2021 BUN:30-->21 Cr:1.64-->1.10 WBC:4.1-->3.0 Hb:13.7-->10.2 Plat: 177-->101 Absolute Neutrophils:3.20 Absolute Lymphocytes:0.53 Neutrophil/Lymphocyte Ratio: 6 high risk CRP:20.2 Ferritin:511 LDH: Pro Calcitonin: Cultures: Urine: 06/14/21: No growth Blood: Sputum : Wound: CXR: 06/14/21 CAT: 06/14/21 head Discussed with patient, RN, CC, IM. I have personally reviewed the past medical history, past surgical history, medications, social history, and family history, and I have updated the database accordingly. Past Medical History: Past Medical History: Diagnosis Date Depression Encephalopathy due to COVID-19 virus 06/15/2021 Headache(784.0) Numbness and tingling Past Surgical History: Past Surgical History: Procedure Laterality Date APPENDECTOMY 1988 SECTION 2004 LAPAROSCOPY TUBAL LIGATION Medications: IVPB builder IntraVENous Once enoxaparin 30 mg SubCUTAneous BID atorvastatin 10 mg Oral Daily busPIRone 5 mg Oral BID cetirizine 10 mg Oral Daily fluticasone 1 spray Each Nostril Daily levothyroxine 25 mcg Oral Daily pantoprazole 40 mg Oral QAM AC propranolol 40 mg Oral BID sertraline 100 mg Oral Daily topiramate 25 mg Oral BID umeclidinium-vilanterol 1 puff Inhalation Daily sodium chloride flush 5-40 mL IntraVENous 2 times per day vitamin D 50,000 Units Oral Daily ascorbic acid 2,000 mg Oral BID zinc sulfate 100 mg Oral Daily Social History: Social History Socioeconomic History Marital status: Spouse name: Not on file Number of children: Not on file Years of education: Not on file Highest education level: Not on file Occupational History Not on file Tobacco Use Smoking status: Current Every Day Smoker Packs/day: 1.00 Years: 20.00 Pack years: 20.00 Types: Cigarettes Smokeless tobacco: Never Used Substance and Sexual Activity Alcohol use: Yes Comment: occasional Drug use: No Sexual activity: Not on file Other Topics Concern Not on file Social History Narrative Not on file Social Determinants of Health Financial Resource Strain: Difficulty of Paying Living Expenses: Not on file Food Insecurity: Worried About Running Out of Food in the Last Year: Not on file Ran Out of Food in the Last Year: Not on file Transportation Needs: Lack of Transportation (Medical): Not on file Lack of Transportation (Non-Medical): Not on file Physical Activity: Days of Exercise per Week: Not on file Minutes of Exercise per Session: Not on file Stress: Feeling of Stress : Not on file Social Connections: Frequency of Communication with Friends and Family: Not on file Frequency of Social Gatherings with Friends and Family: Not on file Attends Mandaen Services: Not on file Active Member of Clubs or Organizations: Not on file Attends Club or Organization Meetings: Not on file Marital Status: Not on file Intimate Partner Violence: Fear of Current or Ex-Partner: Not on file Emotionally Abused: Not on file Physically Abused: Not on file Sexually Abused: Not on file Housing Stability: Unable to Pay for Housing in the Last Year: Not on file Number of Places Lived in the Last Year: Not on file Unstable Housing in the Last Year: Not on file Family History: Family History Problem Relation Age of Onset Arthritis Mother Heart Disease Father High Blood Pressure Father Heart Disease Maternal Grandmother Diabetes Maternal Grandmother Heart Disease Maternal Grandfather Heart Disease Paternal Grandmother Diabetes Paternal Grandmother Heart Disease Paternal Grandfather Diabetes Paternal Grandfather Allergies: Patient has no known allergies. Review of Systems: YARELIS altered mentation Constitutional: No fevers or chills. No systemic complaints Head: No headaches Eyes: No double vision or blurry vision. No conjunctival inflammation. ENT: No sore throat or runny nose.. No hearing loss, tinnitus or vertigo. Cardiovascular: No chest pain or palpitations.No Shortness of breath. No GARCIA Lung: No Shortness of breath or cough. No sputum production Abdomen: No nausea, vomiting, diarrhea, or abdominal pain.. No cramps. Genitourinary: No increased urinary frequency, or dysuria. No hematuria. No suprapubic or CVA pain Musculoskeletal: No muscle aches or pains. No joint effusions, swelling or deformities Hematologic: No bleeding or bruising. Neurologic: No headache, weakness, numbness, or tingling. Integument: No rash, no ulcers. Psychiatric: No depression. Endocrine: No polyuria, no polydipsia, no polyphagia. Physical Examination : Patient Vitals for the past 8 hrs: BP Temp Temp src Pulse Resp SpO2 06/16/21 1239 93/60 99 F (37.2 C) Temporal 57 18 96 % 06/16/21 0747 (!) 106/58 97.9 F (36.6 C) Temporal 65 18 98 % General Appearance: Awake, alert, and in no apparent distress Head: Normocephalic, no trauma Eyes: Pupils equal, round, reactive to light; sclera anicteric; conjunctivae pink. No embolic phenomena. ENT: Oropharynx clear, without erythema, exudate, or thrush. No tenderness of sinuses. Mouth/throat: mucosa pink and moist. No lesions. Dentition in good repair. Neck:Supple, without lymphadenopathy. Thyroid normal, No bruits. Pulmonary/Chest: Clear to auscultation, without wheezes, rales, or rhonchi. No dullness to percussion. Cardiovascular: Regular rate and rhythm without murmurs, rubs, or gallops. Abdomen: Soft, non tender. Bowel sounds normal. No organomegaly All four Extremities: No cyanosis, clubbing, edema, or effusions. Neurologic: disoriented to place and time Skin: Warm and dry with good turgor.No signs of peripheral arterial or venous insufficiency. No ulcerations. No open wounds. Medical Decision Making -Laboratory: I have independently reviewed/ordered the following labs: CBC with Differential: Recent Labs 06/15/21 0620 06/16/21 0625 WBC 4.1 3.0* HGB 13.7 10.2* HCT 39.6 30.3* PLT 177 101* LYMPHOPCT 13* 22* MONOPCT 8 3 BMP: Recent Labs 06/15/21 0620 06/16/21 0625 NA 134* 140 K 3.2* 2.2* CL 105 115* CO2 10* 9* BUN 30* 21* CREATININE 1.64* 1.10* MG 1.9 1.6 Hepatic Function Panel: Recent Labs 06/15/21 0620 06/16/21 0625 PROT 6.8 5.0* LABALBU 4.2 3.0* BILITOT <0.10* <0.10* ALKPHOS 66 44 ALT 16 10 AST 26 22 No results for input(s): RPR in the last 72 hours. No results for input(s): HIV in the last 72 hours. No results for input(s): BC in the last 72 hours. Lab Results Component Value Date MUCUS NOT REPORTED 06/15/2021 RBC 3.38 06/16/2021 TRICHOMONAS NOT REPORTED 06/15/2021 WBC 3.0 06/16/2021 YEAST NOT REPORTED 06/15/2021 TURBIDITY Clear 06/15/2021 Lab Results Component Value Date CREATININE 1.10 06/16/2021 GLUCOSE 89 06/16/2021 Medical Decision Making-Imaging: Narrative EXAMINATION: CT OF THE HEAD WITHOUT CONTRAST, 06/14/2021 3:19 pm TECHNIQUE: CT of the head was performed without the administration of intravenous contrast. Dose modulation, iterative reconstruction, and/or weight based adjustment of the mA/kV was utilized to reduce the radiation dose to as low as reasonably achievable. COMPARISON: None HISTORY: ORDERING SYSTEM PROVIDED HISTORY: Confusion TECHNOLOGIST PROVIDED HISTORY: Confusion Decision Support Exception - unselect if not a suspected or confirmed emergency medical condition->Emergency Medical Condition (MA) Is the patient ? No FINDINGS: BRAIN/VENTRICLES: There is no acute intracranial hemorrhage, mass effect or midline shift. No abnormal extra-axial fluid collection. The kirby-white differentiation is maintained without evidence of an acute infarct. There is no evidence of hydrocephalus. ORBITS: The visualized portion of the orbits demonstrate no acute abnormality. SINUSES: Air-fluid level is noted in the left maxillary sinus. Mastoid air cells are aerated. SOFT TISSUES/SKULL: No acute abnormality of the visualized skull or soft tissues. Impression 1. No acute intracranial abnormality. 2. Air-fluid level in the left maxillary sinus, possibly indicating sinusitis. Narrative EXAMINATION: CT OF THE ABDOMEN AND PELVIS WITH CONTRAST 06/14/2021 3:22 pm TECHNIQUE: CT of the abdomen and pelvis was performed with the administration of intravenous contrast. Multiplanar reformatted images are provided for review. Dose modulation, iterative reconstruction, and/or weight based adjustment of the mA/kV was utilized to reduce the radiation dose to as low as reasonably achievable. COMPARISON: None HISTORY: ORDERING SYSTEM PROVIDED HISTORY: Vomiting rlq pain TECHNOLOGIST PROVIDED HISTORY: Vomiting rlq pain Decision Support Exception - unselect if not a suspected or confirmed emergency medical condition->Emergency Medical Condition (MA) FINDINGS: Lower Chest: Small ill-defined ground-glass opacity at the periphery of the right lower lobe is nonspecific. Small hiatus hernia is noted. Organs: Small hepatic cysts noted measuring up to 14 mm. No concerning liver lesion. No calcified gallstones or biliary ductal dilatation. The spleen is normal in size without focal lesion. The pancreas and the adrenal glands are unremarkable. The kidneys enhance symmetrically without collecting system dilatation. Subcentimeter low-density in the right upper pole kidney, while too small to characterize, statistically likely reflects a tiny cyst. No concerning renal lesion. GI/Bowel: No bowel obstruction. The appendix is not definitely identified. However, there are no secondary findings to suggest the presence of acute appendicitis. Pelvis: The urinary bladder, uterus and adnexa are within normal limits. Peritoneum/Retroperitoneum: No abdominal lymphadenopathy or ascites. Bones/Soft Tissues: No acute osseous abnormality. Impression Ill-defined small ground-glass parenchymal opacity in the right lower lobe is nonspecific, this could reflect infection, pneumonia or atelectasis. Correlate clinically. Follow-up CT chest in 6-8 weeks would be recommended after appropriate therapy has been administered to ensure resolution. Small hiatus hernia and patulous distal esophagus. Esophagitis/GERD could be considered. Otherwise, no acute process in the abdomen or pelvis. Narrative EXAMINATION: ONE XRAY VIEW OF THE CHEST 06/14/2021 4:34 pm COMPARISON: None. HISTORY: ORDERING SYSTEM PROVIDED HISTORY: cough TECHNOLOGIST PROVIDED HISTORY: cough FINDINGS: Cardiomediastinal silhouette within normal limits. Focal right lower lobe consolidation. No definite effusion. No pneumothorax or subdiaphragmatic free air. No acute osseous abnormality identified. Impression Focal right lower lobe consolidation concerning for pneumonia. Medical Decision Dypypt-Cpeyuxrj-Fgsby: Medical Decision Making-Other: Note: Labs, medications, radiologic studies were reviewed with personal review of films Large amounts of data were reviewed Discussed with nursing Staff, urban and regional planner Infection Control and Prevention measures reviewed All prior entries were reviewed Administer medications as ordered Prognosis: Guarded Discharge planning reviewed Thank you for allowing us to participate in the care of this patient. Please call with questions. Leonila Sampson, EXPERIENCE DESIGN DIRECTOR - PLASTIC SEWER ATTESTATION: I have discussed the case, including pertinent history and exam findings with the EXPERIENCE DESIGN DIRECTOR. I have evaluated the History, physical findings and pictures of the patient and the montemayor elements of the encounter have been performed by me. I have reviewed the laboratory data, other diagnostic studies and discussed them with the EXPERIENCE DESIGN DIRECTOR. I have updated the medical record where necessary. I agree with the assessment, plan and orders as documented by the EXPERIENCE DESIGN DIRECTOR. Rene Mccall MD. Pager: - Office: Patient off the floor for MRI at this time. Spoke with Patient , Natacha, via telephone conversation this a.m. re: discharge planning. Patient is a 55 year old , white female, admitted with a diagnosis of Covid 19 virus infection. Patient is noted to be confused at this time. This is not her normal, per . wishes to bring Patient home upon discharge and will be available to care for her along with potential home health referral for nursing. Patient resides [place] with her and 16 year old daughter. Patient independent with all ADL's prior to this illness/hospitalization. Patient uses no DME, per her . She was utilizing no outside resources or services currently. Patient drives herself and provides for her own transportation needs and also drives. is currently laid off from his job so he is able to care for Patient if/as needed. PCP is Dr. Cristobal Richardson. Patient has [employer] and states that medications are covered well by this insurance. Discharge plan is home with family when stable. Patient is a 'Full Code' status and to 's knowledge she does not currently have medical directives in place. Patient open to home health referral, per spouse, as needed. No further needs or concerns identified by hiusband at this time. CORRESPONDENCE DICTATOR to remain involved and monitor/assist with discharge planning needs as appropriate. ESTEVAN Downs 06/16/2021 Progress Note SUBJECTIVE: Patient seen for f/u of COVID-19 virus infection. She resting in bed on right side moves arms and legs changing positions. Opens eyes to stimulation or command but does not follow other commands or answer questions. No oxygen requirements. No distress. ROS: patient unable due to AMS All other systems were reviewed with the patient and are negative unless otherwise stated in HPI OBJECTIVE: Vitals: Vitals: 06/16/21 0747 BP: (!) 106/58 Pulse: 65 Resp: 18 Temp: 97.9 F (36.6 C) SpO2: 98% Weight: 159 lb 11.2 oz (72.4 kg) Height: 5' 7 (170.2 cm) Weight Wt Readings from Last 3 Encounters: 06/14/21 159 lb 11.2 oz (72.4 kg) 05/01/13 155 lb 9.6 oz (70.6 kg) 08/20/12 152 lb 14.4 oz (69.4 kg) Body mass index is 25.01 kg/m . 24HR INTAKE/OUTPUT: Intake/Output Summary (Last 24 hours) at 06/16/2021 0934 Last data filed at 06/16/2021 0446 Gross per 24 hour Intake 5249 ml Output 2400 ml Net 2849 ml - Exam: GEN: lethargic and does not follow direction or answer questions. EYES: EOMI, pupils equal NECK: Supple. No lymphadenopathy. No carotid bruit CVS: regular rate and rhythm, no audible murmur PULM: diminished but clear without wheezing, rales or rhonchi, no acute respiratory distress ABD: Bowels sounds normal. Abdomen is soft. No distention. no tenderness to palpation. EXT: no edema bilaterally . No calf tenderness. NEURO: Moves all extremities. Motor and sensory are grossly intact. Opens eyes on command or with stimulation but does not follow commands SKIN: No rashes. No skin lesions. - Diagnostic Data: Complete Blood Count: Recent Labs 06/14/21 1500 06/15/21 0606/16/21 06 WBC 4.3 4.1 3.0* RBC 5.61* 4.52 3.38* HGB 16.9* 13.7 10.2* HCT 49.7* 39.6 30.3* MCV 88.6 87.6 89.6 MCH 30.1 30.3 30.2 MCHC 34.0 34.6 33.7 RDW 13.5 13.7 14.1 PLT 256 177 101* MPV 10.0 10.0 10.4 Last 3 Blood Glucose: Recent Labs 06/14/21 1500 06/14/21 1514 06/15/21 0606/16/21 0625 GLUCOSE 119* 117 114* 89 Comprehensive Metabolic Profile: Recent Labs 06/14/21 1500 06/14/21 1500 06/14/21 1514 06/15/21 0620 06/16/21 0625 NA 132* -- -- 134* 140 K 3.8 -- -- 3.2* 2.2* CL 94* -- -- 105 115* CO2 10* -- -- 10* 9* BUN 34* -- -- 30* 21* CREATININE 2.03* -- -- 1.64* 1.10* GLUCOSE 119* < > 117 114* 89 CALCIUM 10.0 -- -- 9.0 7.6* PROT 9.5* -- -- 6.8 5.0* LABALBU 5.2 -- -- 4.2 3.0* BILITOT 0.21* -- -- <0.10* <0.10* ALKPHOS 90 -- -- 66 44 AST 41* -- -- 26 22 ALT 23 -- -- 16 10 < > = values in this interval not displayed. Urinalysis: Lab Results Component Value Date NITRU NEGATIVE 06/15/2021 COLORU Yellow 06/15/2021 PHUR 6.0 06/15/2021 WBCUA 0 TO 2 06/15/2021 RBCUA 0 TO 2 06/15/2021 MUCUS NOT REPORTED 06/15/2021 TRICHOMONAS NOT REPORTED 06/15/2021 YEAST NOT REPORTED 06/15/2021 BACTERIA NOT REPORTED 06/15/2021 SPECGRAV 1.015 06/15/2021 LEUKOCYTESUR NEGATIVE 06/15/2021 UROBILINOGEN Normal 06/15/2021 BILIRUBINUR NEGATIVE 06/15/2021 GLUCOSEU NEGATIVE 06/15/2021 KETUA 2+ 06/15/2021 AMORPHOUS NOT REPORTED 06/15/2021 HgBA1c: No results found for: LABA1C Lactic Acid: Lab Results Component Value Date LACTA 1.4 06/14/2021 Troponin: No results for input(s): TROPONINI in the last 72 hours. Radiology/Imaging: XR CHEST PORTABLE Final Result Focal right lower lobe consolidation concerning for pneumonia. CT Head WO Contrast Final Result 1. No acute intracranial abnormality. 2. Air-fluid level in the left maxillary sinus, possibly indicating sinusitis. CT ABDOMEN PELVIS W IV CONTRAST Additional Contrast? Radiologist Recommendation Final Result Ill-defined small ground-glass parenchymal opacity in the right lower lobe is nonspecific, this could reflect infection, pneumonia or atelectasis. Correlate clinically. Follow-up CT chest in 6-8 weeks would be recommended after appropriate therapy has been administered to ensure resolution. Small hiatus hernia and patulous distal esophagus. Esophagitis/GERD could be considered. Otherwise, no acute process in the abdomen or pelvis. MRI BRAIN W CONTRAST (Results Pending) ASSESSMENT / PLAN: COVID-19 virus infection Continue current therapy No hypoxia Remdesivir-Not indicated Acterma-Not Indicated Monoclonal Antibodies-given 06/15/2021 Appreciate ID Encephalopathy due to Covid CT head Neg MRI brain today Ammonia level normal PT/OT Dehydration resolved Hx seizure disorder-on Topamax Appreciate ID Hypokalemia Trend potassium Start Potassium Protocol Change IVF to LR with 40 KCL at 125 ml/hr. Sodium increasing. Nutrition status: at risk for malnutrition Chimney Mechanic consult initiated Hospital Prophylaxis: DVT: Lovenox Stress Ulcer: H2 Heath High risk medications: none Disposition: Discharge plan is pending Alecia Pretty APRN - PLASTIC SEWER , EXPERIENCE DESIGN DIRECTOR, HEDIS COORDINATOR-C Hospitalist Medicine 06/16/2021, 9:34 AM Associated attestation - Benito Oneal MD - 06/16/2021 3:39 PM EST Attending Supervising Physician s Attestation Statement I have personally evaluated and examined the patient [id number] in conjunction with the nurse practitioner. I agree with management and disposition of the patient. My montemayor findings are: 55 y.o. female admitteed for COVID-19 viruses Infection with mental status change. Regular heart rate. Clear lung sounds. Slow to respond answers questions clearly not baseline. Principal Problem: COVID-19 virus infection Active Problems: Dehydration Disorientation Encephalopathy due to COVID-19 virus Hypokalemia Resolved Problems: * No resolved hospital problems. * Examined and Reviewed plan of care with HEDIS COORDINATOR. Directions and discussion about care and plans. Disposition including length of stay was reviewed. Nutritional status, advanced directive and old records reviewed. Disposition: COVID-19 virus protocol, supportive care, home meds, fluids. CT scan negative of the brain. Hopefully just washes out with improvement in infection. The patient was seen examined with the nurse practitioner on June 16, 2021 all direct care was reviewed with the nurse practitioner at the bedside with the patient. Electronically signed by Benito Oneal MD Updated at this time. Pt repositioned in bed, bath and floyd care given, gown changed. Pt resting in bed with eyes closed, answers to name, unable to follow simple commands, unable to tell correct date, continues with dry cough, denies any pain, valle draining clear yellow urine, 400ml out put at this time, will continue to monitor. Patient's updated via telephone Pt would not swallow medications, could not follow command to swallow medications, medications crushed and placed in applesauce for safety, patient able to swallow applesauce without issues, patient had trouble comprehending to suck from the straw but was able to after much encouragement, will continue to monitor. Pt resting in bed with eyes closed, unable to follow simple commands, unable to correct date of , current year, or what her husbands name was, flat affect noted, noted to have frequent dry cough, denies any pain, lung sounds clear upper bases, diminished lower bases bilateral. Valle intact draining clear yellow urine, will continue to monitor. Patient's Natacha updated via telephone. Dr. Mccall notified of infectious disease consult via [employer]. Physical Therapy Facility/Department: [facility] Initial Assessment NAME: Tanja Carrero : 1965 Date of Service: 06/15/2021 Discharge Recommendations: Continue to assess pending progress, Home with assist PRN, 24 hour supervision or assist Assessment Assessment: Patient is 55 year old female with dx of dehydration who presents with altered mental status and inability to respond to vc's or questions at this time. Pt with decreased B LE strnegth, decreased functional mobility and endurance and decreased safety and balance during transfers and ambulation and would benefit from physical therapy to address all concerns and safely return to PLOF. Treatment Diagnosis: Difficulty walking Prognosis: Good; Fair Decision Making: Medium Complexity REQUIRES PT FOLLOW UP: Yes Activity Tolerance Activity Tolerance: Patient limited by cognitive status Patient Diagnosis(es): The primary encounter diagnosis was Intractable vomiting with nausea, unspecified vomiting type. Diagnoses of COVID, Pneumonia of right lower lobe due to infectious organism, and Dehydration were also pertinent to this visit. has a past medical history of Depression, Headache(784.0), and Numbness and tingling. has a past surgical history that includes laparoscopy; Appendectomy (1987); section (2004); and Tubal ligation. Restrictions Restrictions/Precautions Restrictions/Precautions: General Precautions, Fall Risk, Isolation Vision/Hearing Vision: Within Functional Limits Hearing: Within functional limits Subjective General Chart Reviewed: Yes Patient assessed for rehabilitation services?: Yes Response To Previous Treatment: Not applicable Family / Caregiver Present: No Referring Practitioner: SANDY Trujillo Referral Date : 06/15/21 Diagnosis: Dehydration, E86.0 Follows Commands: Impaired Subjective Subjective: Patient very confused and not responding to vc's/questions Pain Screening Patient Currently in Pain: Denies Orientation Orientation Overall Orientation Status: Impaired Social/Functional History Social/Functional History Lives With: Spouse Type of Home: House ADL Assistance: Independent Homemaking Assistance: Independent Homemaking Responsibilities: Yes Ambulation Assistance: Independent Transfer Assistance: Independent Additional Comments: Per chart review, patient was Ind with ADL's with no AD/DME usage; pt unable to report on PLOF d/t confusion at this time. (Simultaneous filing. User may not have seen previous data.) Cognition Objective AROM RLE (degrees) RLE AROM: WFL AROM LLE (degrees) LLE AROM : WFL Strength RLE Comment: 4-/5 grossly Strength LLE Comment: 4-/5 grossly Bed mobility Supine to Sit: Moderate assistance; 2 Person assistance Sit to Supine: Moderate assistance; 2 Person assistance Comment: Tactile cues required for mobility; pt unable to respond to vc's Transfers Sit to Stand: Moderate Assistance; 2 Person Assistance Stand to sit: Moderate Assistance; 2 Person Assistance Comment: ModAx2 for sit/stand transfer from EOB. Ambulation Ambulation?: No (unsafe to attempt at this time d/t patient unable to respond to vc's) Balance Sitting - Static: Good Sitting - Dynamic: Fair; + Standing - Static: Fair Standing - Dynamic: Fair; - Plan Plan Times per week: 7 Times per day: Twice a day (daily on weekends) Current Treatment Recommendations: Strengthening, Neuromuscular Re-education, Home Exercise Program, ROM, Safety Education & Training, Balance Training, Endurance Training, Patient/Caregiver Education & Training, Functional Mobility Training, Transfer Training, Gait Training, Stair training Safety Devices Type of devices: All fall risk precautions in place, Bed alarm in place, Call light within reach, Nurse notified, Gait belt, Patient at risk for falls, Left in bed Goals Short term goals Time Frame for Short term goals: 20 days Short term goal 1: Patient to complete sit/stand and stand pivot transfers mod. Ind with no LOB to decrease fall risk. Short term goal 2: Patient to ambulate 150ft with SUP and no AD with no LOB or fatigue to improve functional mobility. Short term goal 3: Patient to ascend/descend 3 steps with HRx1 and SUP to safely enter her home. Short term goal 4: Patient to tolerate 20-30 min of ther ex/act to improve functional strength. Therapy Time Individual Concurrent Group Co-treatment Time In 1300 Time Out 1315 Minutes 15 Timed Code Treatment Minutes: 14 Minutes Kelvin Fink PT, DPT Occupational Therapy Occupational Therapy Initial Assessment Date: 06/15/2021 Patient Name: Tanja Carrero : 1965 Date of Service: 06/15/2021 Discharge Recommendations: Continue to assess pending progress, IP Rehab, Subacute/[facility] Facility Assessment Performance deficits / Impairments: Decreased functional mobility ; Decreased ADL status; Decreased ROM; Decreased strength; Decreased safe awareness; Decreased cognition; Decreased endurance; Decreased balance; Decreased coordination; Decreased high-level IADLs Assessment: 55 y/o F admitted to [facility] following seizure approx 4-5 days ago and dx of COVID19+. Patient inconsistently follows commands and requires assistance for engagement and completion of all self care tasks. OT to address to improve patient ADL participation and engagement to improve level of independence. Treatment Diagnosis: Weakness Prognosis: Fair Decision Making: High Complexity OT Education: OT Role; Transfer Training Barriers to Learning: congitive status REQUIRES OT FOLLOW UP: Yes Safety Devices Safety Devices in place: Yes Type of devices: All fall risk precautions in place; Bed alarm in place; Call light within reach; Nurse notified; Left in bed Patient Diagnosis(es): The primary encounter diagnosis was Intractable vomiting with nausea, unspecified vomiting type. Diagnoses of COVID, Pneumonia of right lower lobe due to infectious organism, and Dehydration were also pertinent to this visit. has a past medical history of Depression, Headache(784.0), and Numbness and tingling. has a past surgical history that includes laparoscopy; Appendectomy (1987); section (2004); and Tubal ligation. Treatment Diagnosis: Weakness Restrictions Restrictions/Precautions Restrictions/Precautions: General Precautions, Fall Risk, Isolation Subjective General Patient assessed for rehabilitation services?: Yes Subjective Subjective: Patient oriented x 1,did not state pain levels. General Comment Comments: Supine in bed upon arrival Patient Currently in Pain: Denies Vital Signs Temp: 97.5 F (36.4 C) Temp Source: Temporal Pulse: 61 Heart Rate Source: Apical; Monitor Resp: 16 BP: 112/73 BP Location: Left upper arm MAP (mmHg): 89 Patient Position: High fowlers Level of Consciousness: Responds to Voice (1) MEWS Score: 1 Patient Currently in Pain: Denies Oxygen Therapy SpO2: 99 % Pulse Oximeter Device Mode: Intermittent Pulse Oximeter Device Location: Finger O2 Device: None (Room air) Social/Functional History Social/Functional History Lives With: Spouse Type of Home: House ADL Assistance: Independent Homemaking Assistance: Independent Homemaking Responsibilities: Yes Ambulation Assistance: Independent Transfer Assistance: Independent Additional Comments: Per chart review, patient was Ind with ADL's with no AD/DME usage; pt unable to report on PLOF d/t confusion at this time. (Simultaneous filing. User may not have seen previous data.) Objective Balance Sitting Balance: Contact guard assistance Standing Balance: Moderate assistance ADL Feeding: Increased time to complete; Dependent/Total; Maximum assistance Grooming: Dependent/Total; Maximum assistance UE Bathing: Dependent/Total LE Bathing: Dependent/Total UE Dressing: Dependent/Total LE Dressing: Dependent/Total Toileting: Dependent/Total Transfers Sit to stand: Maximum assistance; 2 Person assistance Stand to sit: Maximum assistance; 2 Person assistance Cognition Overall Cognitive Status: Exceptions Following Commands: Inconsistently follows commands Attention Span: Unable to maintain attention Safety Judgement: Decreased awareness of need for safety Insights: Not aware of deficits Initiation: Requires cues for all Sequencing: Requires cues for all LUE PROM (degrees) LUE PROM: WFL Left Hand PROM (degrees) Left Hand PROM: WFL RUE PROM (degrees) RUE PROM: WFL Right Hand PROM (degrees) Right Hand PROM: WFL Plan Plan Times per week: 7 Times per day: Daily Current Treatment Recommendations: Strengthening, ROM, Balance Training, Functional Mobility Training, Endurance Training, Safety Education & Training, Patient/Caregiver Education & Training, Equipment Evaluation, Education, & procurement, Self-Care / ADL, Cognitive/Perceptual Training AM-PAC Score [facility] Inpatient Daily Activity Raw Score: 6 (06/15/211341) AM-[facility] Inpatient ADL T-Scale Score : 17.07 (06/15/21 134) ADL Inpatient CMS 0-100% Score: 100 (06/15/211341) ADL Inpatient [facility] G-Code Modifier : CN (06/15/211341) Goals Short term goals Short term goal 1: Patient to engage in self feeding c min A c <50% VC for initiation of task. Short term goal 2: Patient to engage in simple UB self care (grooming, dressing, bathing) c min A c <50% VC for initiated and engagement in self care. Short term goal 3: Patient to engage daily in BUE A/AA/PROM to maintian ROM throughout hospital stay. Short term goal 4: Patient to complete ADL transfers c Min A x 1 c improved safety. Therapy Time Individual Concurrent Group Co-treatment Time In 1305 Time Out 1319 Minutes 14 LEAH Wallace/Tommy Attempts made by telephone to contact Patient and her emergency contact have been unsuccessful. Will continue to try to determine discharge needs and coordinate discharge planning. ESTEVAN Downs 06/15/2021 Patient requires assistance with meals. Sitting up with meal tray in front of her, but makes no attempt to eat or drink. Fed 3 bites of mashed potatoes, then refuses any more. Refuses rest of meal offered. Drinks supplement with encouragement and assistance with holding cup up to mouth. Vitals stable. Valle draining clear yellow urine. No s/s discomfort or distress. Patient voices no c/o's or needs. Bed alarm activated and call light in reach. Bladder scan with 832cc shown in bladder. Patient assisted up to BSC x2 assist, requires multiple cues and assistance with body positioning. Does not follow simple commands. Delayed responses. Patient does not void. Return to bed and indwelling valle placed, 1200cc out immediately. Urine sample sent to lab for UA. ISA Alston aware of all. Patient sitting up in bed with meal tray in front of her, has not touched. Holding cup of water in hand. Nurse offers straw for cup, patient declines and attempts to drink from lid. Straw provided. Patient continues to hold cup but does not drink. Patient states No, he won't eat. Does not answer when asked who he is. Continues to hold cup in hand with eyes closed. Meds given on spoon, patient takes with sips of water with direction and encouragement given. Patient only responding with one word answers or not at all. Breakfast again offered, patient declines, tray removed. Monoclonal antibodies infusing per orders. No s/s adverse reaction noted. Vital signs remain stable. Patient sitting up in bed, no change in condition noted. Bed alarm activated, call light in reach. Patient's Natacha given update via telephone. Pharmacy Note COVID-19 Anticoagulation Adjustment Tanja Carrero is a 55 y.o. female. Pharmacist assessment of anticoagulation in a SARS-CoV-2 positive patient. Recent Labs 06/14/21 1500 BUN 34* Recent Labs 06/14/21 1500 CREATININE 2.03* No results for input(s): DDIMER in the last 72 hours. Estimated Creatinine Clearance: 31 mL/min (A) (based on SCr of 2.03 mg/dL (H)). Height: Ht Readings from Last 1 Encounters: 06/15/21 5' 7 (1.702 m) Weight: Wt Readings from Last 1 Encounters: 06/14/21 159 lb 11.2 oz (72.4 kg) BMI: Body mass index is 25.01 kg/m . Per the [facility] Anticoagulation Algorithm for COVID-19 positive or clinically-suspected patients, the following adjustment has been made per P&T Guidelines: Lovenox adjusted to 30 mg sq bid for BMI < 30 kg/m2 Thank you, Riley Strong [facility] 06/15/2021, 7:21 AM Patient alert, oriented to self only. Able to state first name and after some prompting. Repeats 68 in response to questions regarding time and location. Patient with flat affect, withdrawn. Stares forward while nurse present in room. Does not engage in conversation. States no when asked if having any nausea at this time. Dry non productive cough noted. SpO2 99% on room air. No sob or dyspnea at rest. Patient resting in bed, no s/s discomfort or distress. Call light in reach. Comprehensive Nutrition Assessment Type and Reason for Visit: Initial (missing nutrition screenings) Nutrition Recommendations/Plan: Encourage oral intakes Nutrition Assessment: Predicted suboptimal nutrient intakes r/t altered respiratory status, AEB PO declines for 3-4 days per ER notes. Current weight is > historical values, which are rather remote (2012). She does not answer phone upon call to room, and noted decreased interactions with nursing earlier this AM. Will add Ensure to supplement, given lower PO reported. Malnutrition Assessment: Malnutrition Status: At risk for malnutrition (Comment) Context: Acute Illness Findings of the 6 clinical characteristics of malnutrition: Energy Intake: Mild decrease in energy intake (Comment) (at least 3-4 days) Weight Loss: No significant weight loss Body Fat Loss: Unable to assess Muscle Mass Loss: Unable to assess Fluid Accumulation: No significant fluid accumulation Busperson Strength: Not Performed Estimated Daily Nutrient Needs: Energy (kcal): 3549-5652 (20-25); Weight Used for Energy Requirements: Current Protein (g): 80-92 (1.3-1.5); Weight Used for Protein Requirements: Presho Fluid (ml/day): 1800; Method Used for Fluid Requirements: 1 ml/kcal Nutrition Related Findings: + b/s, no edema Wounds: None Current Nutrition Therapies: ADULT DIET; Regular ADULT ORAL NUTRITION SUPPLEMENT; Breakfast, Lunch, Dinner; Standard High Calorie/High Protein Oral Supplement Anthropometric Measures: Height: 5' 7 (170.2 cm) Current Body Weight: 159 lb 11.2 oz (72.4 kg) Admission Body Weight: 159 lb 11.2 oz (72.4 kg) Usual Body Weight: 155 lb 9.6 oz (70.6 kg) (in 2013) Presho Body Weight: 135 lbs; % Presho Body Weight 118.3 % BMI: 25 Adjusted Body Weight: ; No Adjustment BMI Categories: Overweight (BMI 25.0-29.9) Nutrition Diagnosis: Predicted inadequate energy intake related to impaired respiratory function as evidenced by poor intake prior to admission, other (comment) (covid) Lab Results Component Value Date NA 134 (L) 06/15/2021 K 3.2 (L) 06/15/2021 CL 105 06/15/2021 CO2 10 (L) 06/15/2021 BUN 30 (H) 06/15/2021 CREATININE 1.64 (H) 06/15/2021 GLUCOSE 114 (H) 06/15/2021 CALCIUM 9.0 06/15/2021 PROT 6.8 06/15/2021 LABALBU 4.2 06/15/2021 BILITOT <0.10 (L) 06/15/2021 ALKPHOS 66 06/15/2021 AST 26 06/15/2021 ALT 16 06/15/2021 LABGLOM 33 (L) 06/15/2021 GFRAA 40 (L) 06/15/2021 No results found for: LABA1C No results found for: EAG No results found for: VITD25 Nutrition Interventions: Food and/or Nutrient Delivery: Continue Current Diet, Start Oral Nutrition Supplement Nutrition Education/Counseling: No recommendation at this time Coordination of Nutrition Care: Continue to monitor while inpatient Goals: PO >75% meals and supplement Nutrition Monitoring and Evaluation: Behavioral-Environmental Outcomes: None Identified Food/Nutrient Intake Outcomes: Food and Nutrient Intake Physical Signs/Symptoms Outcomes: Biochemical Data, Weight, Nausea or Vomiting Discharge Planning: Too soon to determine Contact: [id number] Pt slept throughout night, respirations even and unlabored, no signs of distress noted, will continue to monitor Pt called and was updated on patients condition, he stated that patient has been sick for a week and was diagnosis with bronchitis about a week ago. Pt resting in bed with eyes closed, re-assessment completed, no complaints voiced at this time, respirations even and unlabored, will continue to monitor. Pt admitted to floor, patient alert to place and situation, unable to tell date, noted to have flat affect, noted to have moist non-productive cough, lung sounds diminished in lower bases, denies any pain, denies any nausea at this time. No other complaints voiced will continue to monitor. documented in this encounter [employer] Phone: 06-18-2021 Hospital Discharge instructions Elba Roe RN - 06/18/2021 1:29 PM EST No restrictions to activity. Elba Roe RN - 06/18/2021 1:29 PM EST Good nutrition is important when healing from an illness, injury, or surgery. Follow any nutrition recommendations given to you during your hospital stay. If you were given an oral nutrition supplement while in the hospital, continue to take this supplement at home. You can take it with meals, in-between meals, and/or before bedtime. These supplements can be purchased at most local grocery stores, pharmacies, and [employer]. If you have any questions about your diet or nutrition, call the hospital and ask for the dietitian. Resume general diet. Elba Roe RN - 06/18/2021 You must quarantine through June 24, 2021. The following attachments cannot be sent through Care Everywhere.Coronavirus Disease (COVID-19): Caring for Yourself: Quick List (Panamanian)Coronavirus Disease (COVID-19): Hospital Discharge (Panamanian)documented in this encounter [employer] Phone: 06-16-2021 Note 1. Patient motion li mits evaluation. 2. No acute intracranial abnormality. No acute infarct. 3. Minimal chronic microvascular ischemic changes. 4. Tiny dorsal callosal lipoma. 5. Scattered mucosal thickening of the paranasal sinuses. [facility] Evaluation note Diagnosis COVID-19 virus infection- Primary Intractable vomiting with nausea, unspecified vomiting type COVID Pneumonia of right lower lobe due to infectious organism Dehydration Disorientation Other general symptoms Encephalopathy due to COVID-19 virus Hypokalemia Hypopotassemia documented in this encounter [employer] Phone: evaluation note* Diagnosis Seizure (HCC)- Primary Other convulsions Closed fracture of left foot, initial encounter Closed fracture of distal end of left fibula, unspecified fracture morphology, initial encounter documented in this encounter [facility] [employer] Phone: evaluation note* Diagnosis Multiple fractures of foot, left, closed, initial encounter- Primary Ankle fracture, bimalleolar, closed, left, initial encounter Seizure (HCC) Other convulsions documented in this encounter [facility] [employer] Phone: evaluation note* Diagnosis 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- Primary Dental caries extending into pulp [facility] Diagnosis Anxiety [facility] depression ([facility])- Primary Seizures ([facility]) Other convulsions Primary insomnia Persistent disorder of initiating or maintaining sleep Thyroid nodule ([facility]) Nontoxic uninodular goiter Hypothyroidism (acquired) ([facility]) Unspecified hypothyroidism Major depressive disorder with single episode, in remission (HCC) ([facility]) Mixed hyperlipidemia ([facility]) Mixed hyperlipidemia Anxiety Anxiety state, unspecified Vitamin D deficiency Environmental and seasonal allergies Gastroesophageal reflux disease, unspecified whether esophagitis present MARY (generalized anxiety disorder) ([facility]) Generalized anxiety disorder Simple chronic bronchitis ([facility]) Simple chronic bronchitis Anxiety and depression ([facility])- Primary Simple chronic bronchitis ([facility]) Simple chronic bronchitis Anxiety Anxiety state, unspecified Vitamin D deficiency Environmental and seasonal allergies Major depressive disorder with single episode, in remission (HCC) ([facility] [facility]) MARY (general[facility] anxiety disorder) ([facility]) Generalized anxiety disorder Seizures ([facility]) Other convulsions Mixed hyperlipidemia ([facility]) Mixed hyperlipidemia Gastroesophageal reflux disease, unspecified whether esophagitis present Hypothyroidism (acquired) ([facility]) Unspecified hypothyroidism Osteoporosis, unspecified osteoporosis type, unspecified pathological fracture presence ([facility]) Tobacco user Tobacco use disorder Obesity with body mass index (BMI) of 30.0 to 39.9 Age-related osteoporosis without current pathological fracture ([facility])- Primary Obesity with body mass index (BMI) of 30.0 to 39.9 Tobacco user Tobacco use disorder MARY (generalized anxiety disorder) ([facility])- Primary Generalized anxiety disorder Simple chronic bronchitis ([facility]) Simple chronic bronchitis Seizures ([facility]) Other convulsions Gastroesophageal reflux disease, unspecified whether esophagitis present Osteoporosis, unspecified osteoporosis type, unspecified pathological fracture presence ([facility]) Hypothyroidism (acquired) ([facility] Unspecified hypothyroidism Anxiety and depression ([facility]) Rheumatoid arthritis, involving unspecified site, unspecified whether rheumatoid factor present ([facility]) Tobacco user Tobacco use disorder Migraine without status migrainosus, not intractable, unspecified migraine type ([facility]) Major depressive disorder with single episode, in remission (HCC) ([facility]) Mixed hyperlipidemia ([facility]) Mixed hyperlipidemia Vitamin D deficiency Environmental and seasonal allergies Hypomagnesemia Disorders of magnesium metabolism Osteoarthritis of spine with radiculopathy, lumbosacral region Hypothyroidism (acquired) ([facility])- Primary Unspecified hypothyroidism Nonintractable epilepsy without status epilepticus, unspecified epilepsy type ([facility]) Seizures ([facility]) Other convulsions Osteoporosis, unspecified osteoporosis type, unspecified pathological fracture presence ([facility] Depression with anxiety Dysthymic disorder MARY (generalized anxiety disorder) ([facility]) Generalized anxiety disorder Rheumatoid arthritis, involving unspecified site, unspecified whether rheumatoid factor present ([facility]) Tobacco user Tobacco use disorder Abnormal weight gain Obesity with body mass index (BMI) of 30.0 to 39.9 Vitamin D deficiency Environmental and seasonal allergies documented in [facility] encounter [facility] Diagnosis Anxiety and depression ([facility])- Primary Seizures ([facility]) Other convulsions Primary insomnia Persistent disorder of initiating or maintaining sleep Thyroid nodule ([facility]) Nontoxic uninodular goiter Hypothyroidism (acquired) ([facility] Unspecified hypothyroidism Major depressive disorder with single episode, in remission (HCC) ([facility]) Mixed hyperlipidemia ([facility]) Mixed hyperlipidemia Anxiety Anxiety state, unspecified Vitamin D deficiency Environmental and seasonal allergies Gastroesophageal reflux disease, unspecified whether esophagitis present MARY (generalized anxiety disorder) ([facility] Generalized anxiety disorder Simple chronic bronchitis ([facility]) Simple chronic bronchitis Anxiety and depression ([facility])- Primary Simple chronic bronchitis ([facility]) Simple chronic bronchitis Anxiety Anxiety state, unspecified Vitamin D deficiency Environmental and seasonal allergies Major depressive disorder with single episode, in remission (HCC) ([facility]) MARY (generalized anxiety disorder) ([facility]) Generalized anxiety disorder Seizures ([facility]) Other convulsions Mixed hyperlipidemia ([facility]) Mixed hyperlipidemia Gastroesophageal reflux disease, unspecified whether esophagitis present Hypothyroidism (acquired) ([facility]) Unspecified hypothyroidism Osteoporosis, unspecified osteoporosis type, unspecified pathological fracture presence ([facility]) Tobacco user Tobacco use disorder Obesity with body mass index (BMI) of 30.0 to 39.9 Age-related osteoporosis without current pathological fracture ([facility])- Primary Obesity with body mass index (BMI) of 30.0 to 39.9 Tobacco user Tobacco use disorder MARY (generalized anxiety disorder) ([facility])- Primary Generalized anxiety disorder Simple chronic bronchitis ([facility]) Simple chronic bronchitis Seizures ([facility]) Other convulsions Gastroesophageal reflux disease, unspecified whether esophagitis present Osteoporosis, unspecified osteoporosis type, unspecified pathological fracture presence ([facility] Hypothyroidism (acquired) ([facility] Unspecified hypothyroidism Anxiety and depression ([facility]) Rheumatoid arthritis, involving unspecified site, unspecified whether rheumatoid factor present ([facility]) Tobacco user Tobacco use disorder Migraine without status migrainosus, not intractable, unspecified migraine type ([facility]) Major depressive disorder with single episode, in remission (HCC) ([facility]) Mixed hyperlipidemia ([facility]) Mixed hyperlipidemia Vitamin D deficiency Environmental and seasonal allergies Hypomagnesemia Disorders of magnesium metabolism Osteoarthritis of spine with radiculopathy, lumbosacral region Hypothyroidism (acquired) ([facility])- Primary Unspecified hypothyroidism Nonintractable epilepsy without status epilepticus, unspecified epilepsy type ([facility]) Seizures ([facility]) Other convulsions Osteoporosis, unspecified osteoporosis type, unspecified pathological fracture presence ([facility] Depression with anxiety Dysthymic disorder MARY (generalized anxiety disorder) ([facility]) Generalized anxiety disorder Rheumatoid arthritis, involving unspecified site, unspecified whether rheumatoid factor present ([facility]) Tobacco user Tobacco use disorder Abnormal weight gain Obesity with body mass index (BMI) of 30.0 to 39.9 Abnormal weight gain- Primary Tobacco user Tobacco use disorder MARY (generalized anxiety disorder) ([facility]) Generalized anxiety disorder Obesity with body mass index (BMI) of 30.0 to 39.9 Constipation, unspecified constipation type documented in this encounter [facility]* Diagnosis Anxiety and depression ([facility])- Primary Seizures ([facility]) Other convulsions Primary insomnia Persistent disorder of initiating or maintaining sleep Thyroid nodule ([facility]) Nontoxic uninodular goiter Hypothyroidism (acquired) ([facility]) Unspecified hypothyroidism Major depressive disorder with single episode, in remission (HCC) ([facility]) Mixed hyperlipidemia ([facility]) Mixed hyperlipidemia Anxiety Anxiety state, unspecified Vitamin D deficiency Environmental and seasonal allergies Gastroesophageal reflux disease, unspecified whether esophagitis present MARY (generalized anxiety disorder) ([facility] Generalized anxiety disorder Simple chronic bronchitis ([facility]) Simple chronic bronchitis Anxiety and depression ([facility])- Primary Simple chronic bronchitis ([facility]) Simple chronic bronchitis Anxiety Anxiety state, unspecified Vitamin D deficiency Environmental and seasonal allergies Major depressive disorder with single episode, in remission (HCC) ([facility]) MARY (generalized anxiety disorder) ([facility]) Generalized anxiety disorder Seizures ([facility]) Other convulsions Mixed hyperlipidemia ([facility]) Mixed hyperlipidemia Gastroesophageal reflux disease, unspecified whether esophagitis present Hypothyroidism (acquired) ([facility]) Unspecified hypothyroidism Osteoporosis, unspecified osteoporosis type, unspecified pathological fracture presence ([facility] [place]) Tobacco user Tobacco use disorder Obesity with body mass index (BMI) of 30.0 to 39.9 Age-related osteoporosis without current pathological fracture ([facility] [place])- Primary Obesity with body mass index (BMI) of 30.0 to 39.9 Tobacco user Tobacco use disorder MARY (generalized anxiety disorder) ([facility] [place])- Primary Generalized anxiety disorder Simple chronic bronchitis ([facility]) Simple chronic bronchitis Seizures ([facility]) Other convulsions Gastroesophageal reflux disease, unspecified whether esophagitis present Osteoporosis, unspecified osteoporosis type, unspecified pathological fracture presence ([facility] [place]) Hypothyroidism (acquired) ([facility] [place]) Unspecified hypothyroidism Anxiety and depression ([facility] [place]) Rheumatoid arthritis, involving unspecified site, unspecified whether rheumatoid factor present ([facility]) Tobacco user Tobacco use disorder Migraine without status migrainosus, not intractable, unspecified migraine type ([facility]) Major depressive disorder with single episode, in remission (HCC) ([facility]) Mixed hyperlipidemia ([facility]) Mixed hyperlipidemia Vitamin D deficiency Environmental and seasonal allergies Hypomagnesemia Disorders of magnesium metabolism Osteoarthritis of spine with radiculopathy, lumbosacral region Hypothyroidism (acquired) ([facility])- Primary Unspecified hypothyroidism Nonintractable epilepsy without status epilepticus, unspecified epilepsy type ([facility]) Seizures ([facility]) Other convulsions Osteoporosis, unspecified osteoporosis type, unspecified pathological fracture presence ([facility]) Depression with anxiety Dysthymic disorder MARY (generalized anxiety disorder) ([facility]) Generalized anxiety disorder Rheumatoid arthritis, involving unspecified site, unspecified whether rheumatoid factor present ([facility]) Tobacco user Tobacco use disorder Abnormal weight gain Obesity with body mass index (BMI) of 30.0 to 39.9 Abnormal weight gain- Primary Tobacco user Tobacco use disorder MARY (generalized anxiety disorder) ([facility]) Generalized anxiety disorder Obesity with body mass index (BMI) of 30.0 to 39.9 Constipation, unspecified constipation type Major depressive disorder with single episode, in remission (HCC) ([facility]) documented in [facility] encounter [facility]* Diagnosis Anxiety and depression ([facility])- Primary Seizures ([facility]) Other convulsions Primary insomnia Persistent disorder of initiating or maintaining sleep Thyroid nodule ([facility]) Nontoxic uninodular goiter Hypothyroidism (acquired) ([facility]) Unspecified hypothyroidism Major depressive disorder with single episode, in remission (HCC) ([facility]) Mixed hyperlipidemia ([facility]) Mixed hyperlipidemia Anxiety Anxiety state, unspecified Vitamin D deficiency Environmental and seasonal allergies Gastroesophageal reflux disease, unspecified whether esophagitis present MARY (generalized anxiety disorder) ([facility] Generalized anxiety disorder Simple chronic bronchitis ([facility]) Simple chronic bronchitis Anxiety and depression ([facility])- Primary Simple chronic bronchitis ([facility]) Simple chronic bronchitis Anxiety Anxiety state, unspecified Vitamin D deficiency Environmental and seasonal allergies Major depressive disorder with single episode, in remission (HCC) ([facility]) MARY (generalized anxiety disorder) ([facility]) Generalized anxiety disorder Seizures ([facility]) Other convulsions Mixed hyperlipidemia ([facility]) Mixed hyperlipidemia Gastroesophageal reflux disease, unspecified whether esophagitis present Hypothyroidism (acquired) ([facility]) Unspecified hypothyroidism Osteoporosis, unspecified osteoporosis type, unspecified pathological fracture presence ([facility]) Tobacco user Tobacco use disorder Obesity with body mass index (BMI) of 30.0 to 39.9 Age-related osteoporosis without current pathological fracture ([facility])- Primary Obesity with body mass index (BMI) of 30.0 to 39.9 Tobacco user Tobacco use disorder MARY (generalized anxiety disorder) ([facility])- Primary Generalized anxiety disorder Simple chronic bronchitis ([facility]) Simple chronic bronchitis Seizures ([facility]) Other convulsions Gastroesophageal reflux disease, unspecified whether esophagitis present Osteoporosis, unspecified osteoporosis type, unspecified pathological fracture presence ([facility] Hypothyroidism (acquired) ([facility] [place] [facility]) Unspecified hypothyroidism Anxiety and depression ([facility]) Rheumatoid arthritis, involving unspecified site, unspecified whether rheumatoid factor present ([facility]) Tobacco user Tobacco use disorder Migraine without status migrainosus, not intractable, unspecified migraine type ([facility]) Major depressive disorder with single episode, in remission (HCC) ([facility]) Mixed hyperlipidemia ([facility]) Mixed hyperlipidemia Vitamin D deficiency Environmental and seasonal allergies Hypomagnesemia Disorders of magnesium metabolism Osteoarthritis of spine with radiculopathy, lumbosacral region Hypothyroidism (acquired) ([facility])- Primary Unspecified hypothyroidism Nonintractable epilepsy without status epilepticus, unspecified epilepsy type ([facility]) Seizures ([facility]) Other convulsions Osteoporosis, unspecified osteoporosis type, unspecified pathological fracture presence ([facility]) Depression with anxiety Dysthymic disorder MARY (generalized anxiety disorder) ([facility]) Generalized anxiety disorder Rheumatoid arthritis, involving unspecified site, unspecified whether rheumatoid factor present ([facility]) Tobacco user Tobacco use disorder Abnormal weight gain Obesity with body mass index (BMI) of 30.0 to 39.9 Abnormal weight gain- Primary Tobacco user Tobacco use disorder MARY (generalized anxiety disorder) ([facility]) Generalized anxiety disorder Obesity with body mass index (BMI) of 30.0 to 39.9 Constipation, unspecified constipation type Anxiety and depression ([facility])- Primary Abnormal weight gain Tobacco user Tobacco use disorder Osteoporosis, unspecified osteoporosis type, unspecified pathological fracture presence ([facility] Mixed hyperlipidemia ([facility]) Mixed hyperlipidemia Vitamin D deficiency Environmental and seasonal allergies Hypothyroidism (acquired) ([facility]) Unspecified hypothyroidism Hypomagnesemia Disorders of magnesium metabolism Gastroesophageal reflux disease, unspecified whether esophagitis present MARY (generalized anxiety disorder) ([facility]) Generalized anxiety disorder Major depressive disorder with single episode, in remission (HCC) ([facility]) Seizures ([facility]) Other convulsions Simple chronic bronchitis ([facility]) Simple chronic bronchitis Chronic obstructive pulmonary disease, unspecified COPD type ([facility]) Depression with anxiety Dysthymic disorder documented in [facility]* Diagnosis Hypothyroidism (acquired[facility] ([facility])- Primary Unspecified hypothyroidism Mixed hyperlipidemia ([facility]) Mixed hyperlipidemia Hypomagnesemia Disorders of magnesium metabolism Osteoporosis, unspecified osteoporosis type, unspecified pathological fracture presence ([facility]) documented [facility]* Diagnosis Major depressive disorder with single episode, in remission (HCC) ([facility]) Mixed hyperlipidemia ([facility]) Mixed hyperlipidemia Anxiety Anxiety state, unspecified Vitamin D deficiency Environmental and seasonal allergies Hypothyroidism (acquired) ([facility]) Unspecified hypothyroidism Gastroesophageal reflux disease, unspecified whether esophagitis present Anxiety and depression ([facility]) MARY (generalized anxiety disorder) ([facility]) Generalized anxiety disorder Seizures ([facility] [facility]) Other convulsions Simple chronic bronchitis ([facility] Simple chronic bronchitis documented in this [facility]* Diagnosis Obesity with body mass index (BMI) of 30.0 to 39.9- Primary documented in this encounter [facility]* Diagnosis Hypothyroidism (acquired) ([facility])- Primary Unspecified hypothyroidism documented in this encounter [facility]* Diagnosis MARY (generalized anxiety disorder) ([facility] [place])- Primary Generalized anxiety disorder Simple chronic bronchitis ([facility]) Simple chronic bronchitis Seizures ([facility] [place]) Other convulsions Gastroesophageal reflux disease, unspecified whether esophagitis present Osteoporosis, unspecified osteoporosis type, unspecified pathological fracture presence ([facility]) Hypothyroidism (acquired) ([facility] [place]) Unspecified hypothyroidism Anxiety and depression ([facility] [place]) Rheumatoid arthritis, involving unspecified site, unspecified whether rheumatoid factor present ([facility]) Tobacco user Tobacco use disorder Migraine without status migrainosus, not intractable, unspecified migraine type ([facility]) Major depressive disorder with single episode, in remission (HCC) ([facility] [place]) Mixed hyperlipidemia ([facility]) Mixed hyperlipidemia Vitamin D deficiency Environmental and seasonal allergies Hypomagnesemia Disorders of magnesium metabolism Osteoarthritis of spine with radiculopathy, lumbosacral region [facility] Diagnosis Hypothyroidism (acquired) ([facility])- Primary Unspecified hypothyroidism Nonintractable epilepsy without status epilepticus, unspecified epilepsy type ([facility]) Seizures ([facility]) Other convulsions Osteoporosis, unspecified osteoporosis type, unspecified pathological fracture presence ([facility] [place]) Depression with anxiety Dysthymic disorder MARY (generalized anxiety disorder) ([facility]) Generalized anxiety disorder Rheumatoid arthritis, involving unspecified site, unspecified whether rheumatoid factor present ([facility]) Tobacco user Tobacco use disorder Abnormal weight gain Obesity with body mass index (BMI) of 30.0 to 39.9 documented in this encounter [facility]* Diagnosis Osteoporosis, unspecified osteoporosis type, unspecified pathological fracture presence ([facility])- Primary documented in this [facility]* Diagnosis Undifferentiated connective tissue disease ([facility])- Primary Unspecified diffuse connective tissue disease Inflammatory arthritis Unspecified inflammatory polyarthropathy Multiple joint pain Pain in joint, multiple sites Degeneration of intervertebral disc of lumbar region with discogenic back pain Medication monitoring encounter Encounter for therapeutic drug monitoring DDD (degenerative disc disease), cervical Degeneration of cervical intervertebral disc [facility] Diagnosis Anxiety and depression ([facility])- Primary Seizures ([facility]) Other convulsions Primary insomnia Persistent disorder of initiating or maintaining sleep Thyroid nodule ([facility]) Nontoxic uninodular goiter Hypothyroidism (acquired) ([facility]) Unspecified hypothyroidism Major depressive disorder with single episode, in remission (HCC) ([facility]) Mixed hyperlipidemia ([facility]) Mixed hyperlipidemia Anxiety Anxiety state, unspecified Vitamin D deficiency Environmental and seasonal allergies Gastroesophageal reflux disease, unspecified whether esophagitis present MARY (generalized anxiety disorder) ([facility]) Generalized anxiety disorder Simple chronic bronchitis ([facility]) Simple chronic bronchitis Anxiety and depression ([facility])- Primary Simple chronic bronchitis ([facility]) Simple chronic bronchitis Anxiety Anxiety state, unspecified Vitamin D deficiency Environmental and seasonal allergies Major depressive disorder with single episode, in remission (HCC) ([facility]) MARY (generalized anxiety disorder) ([facility]) Generalized anxiety disorder Seizures ([facility]) Other convulsions Mixed hyperlipidemia ([facility]) Mixed hyperlipidemia Gastroesophageal reflux disease, unspecified whether esophagitis present Hypothyroidism (acquired) ([facility]) Unspecified hypothyroidism Osteoporosis, unspecified osteoporosis type, unspecified pathological fracture presence ([facility] Tobacco user Tobacco use disorder Obesity with body mass index (BMI) of 30.0 to 39.9 Age-related osteoporosis without current pathological fracture ([facility])- Primary Obesity with body mass index (BMI) of 30.0 to 39.9 Tobacco user Tobacco use disorder MARY (generalized anxiety disorder) ([facility])- Primary Generalized anxiety disorder Simple chronic bronchitis ([facility]) Simple chronic bronchitis Seizures ([facility]) Other convulsions Gastroesophageal reflux disease, unspecified whether esophagitis present Osteoporosis, unspecified osteoporosis type, unspecified pathological fracture presence ([facility]) Hypothyroidism (acquired) ([facility] Unspecified hypothyroidism Anxiety and depression ([facility]) Rheumatoid arthritis, involving unspecified site, unspecified whether rheumatoid factor present ([facility]) Tobacco user Tobacco use disorder Migraine without status migrainosus, not intractable, unspecified migraine type ([facility]) Major depressive disorder with single episode, in remission (HCC) ([facility]) Mixed hyperlipidemia ([facility]) Mixed hyperlipidemia Vitamin D deficiency Environmental and seasonal allergies Hypomagnesemia Disorders of magnesium metabolism Osteoarthritis of spine with radiculopathy, lumbosacral region Hypothyroidism (acquired) ([facility])- Primary Unspecified hypothyroidism Nonintractable epilepsy without status epilepticus, unspecified epilepsy type ([facility]) Seizures ([facility]) Other convulsions Osteoporosis, unspecified osteoporosis type, unspecified pathological fracture presence ([facility] Depression with anxiety Dysthymic disorder MARY (generalized anxiety disorder) ([facility]) Generalized anxiety disorder Rheumatoid arthritis, involving unspecified site, unspecified whether rheumatoid factor present ([facility]) Tobacco user Tobacco use disorder Abnormal weight gain Obesity with body mass index (BMI) of 30.0 to 39.9 Abnormal weight gain- Primary Tobacco user Tobacco use disorder MARY (generalized anxiety disorder) ([facility]) Generalized anxiety disorder Obesity with body mass index (BMI) of 30.0 to 39.9 Constipation, unspecified constipation type Anxiety and depression ([facility])- Primary Abnormal weight gain Tobacco user Tobacco use disorder Osteoporosis, unspecified osteoporosis type, unspecified pathological fracture presence ([facility] Mixed hyperlipidemia ([facility]) Mixed hyperlipidemia Vitamin D deficiency Environmental and seasonal allergies Hypothyroidism (acquired) ([facility]) Unspecified hypothyroidism Hypomagnesemia Disorders of magnesium metabolism Gastroesophageal reflux disease, unspecified whether esophagitis present MARY (generalized anxiety disorder) ([facility]) Generalized anxiety disorder Major depressive disorder with single episode, in remission (HCC) ([facility]) Seizures ([facility]) Other convulsions Simple chronic bronchitis ([facility]) Simple chronic bronchitis Chronic obstructive pulmonary disease, unspecified COPD type ([facility] Depression with anxiety Dysthymic disorder Simple chronic bronchitis ([facility]) Simple chronic bronchitis documented [facility]* Diagnosis Undifferentiated connective tissue disease ([facility])- Primary Unspecified diffuse connective tissue disease Rheumatoid factor positive Other and unspecified nonspecific immunological findings Fibromyalgia Unspecified myalgia and myositis Trochanteric bursitis of both hips DDD (degenerative disc disease), cervical Degeneration of cervical intervertebral disc DDD (degenerative disc disease), lumbar Degeneration of lumbar or lumbosacral intervertebral disc Medication monitoring encounter Encounter for therapeutic drug monitoring [facility] Diagnosis Undifferentiated connective tissue disease ([facility])- Primary Unspecified diffuse connective tissue disease Fibromyalgia Unspecified myalgia and myositis Trochanteric bursitis of both hips DDD (degenerative disc disease), cervical Degeneration of cervical intervertebral disc DDD (degenerative disc disease), lumbar Degeneration of lumbar or lumbosacral intervertebral disc Medication monitoring encounter Encounter for therapeutic drug monitoring [facility] Diagnosis DDD (degenerative disc disease), cervical Degeneration of cervical intervertebral disc [facility]* Diagnosis DDD (degenerative disc disease), cervical Degeneration of cervical intervertebral disc [facility] Diagnosis Anxiety and depression ([facility])- Primary Seizures ([facility]) Other convulsions Primary insomnia Persistent disorder of initiating or maintaining sleep Thyroid nodule ([facility]) Nontoxic uninodular goiter Hypothyroidism (acquired) ([facility]) Unspecified hypothyroidism Major depressive disorder with single episode, in remission (HCC) ([facility]) Mixed hyperlipidemia ([facility]) Mixed hyperlipidemia Anxiety Anxiety state, unspecified Vitamin D deficiency Environmental and seasonal allergies Gastroesophageal reflux disease, unspecified whether esophagitis present MARY (generalized anxiety disorder) ([facility]) Generalized anxiety disorder Simple chronic bronchitis ([facility]) Simple chronic bronchitis Anxiety and depression ([facility])- Primary Simple chronic bronchitis ([facility]) Simple chronic bronchitis Anxiety Anxiety state, unspecified Vitamin D deficiency Environmental and seasonal allergies Major depressive disorder with single episode, in remission (HCC) ([facility]) MARY (generalized anxiety disorder) ([facility]) Generalized anxiety disorder Seizures ([facility]) Other convulsions Mixed hyperlipidemia ([facility]) Mixed hyperlipidemia Gastroesophageal reflux disease, unspecified whether esophagitis present Hypothyroidism (acquired) ([facility]) Unspecified hypothyroidism Osteoporosis, unspecified osteoporosis type, unspecified pathological fracture presence ([facility]) Tobacco user Tobacco use disorder Obesity with body mass index (BMI) of 30.0 to 39.9 Age-related osteoporosis without current pathological fracture ([facility])- Primary Obesity with body mass index (BMI) of 30.0 to 39.9 Tobacco user Tobacco use disorder MARY (generalized anxiety disorder) ([facility])- Primary Generalized anxiety disorder Simple chronic bronchitis ([facility]) Simple chronic bronchitis Seizures ([facility]) Other convulsions Gastroesophageal reflux disease, unspecified whether esophagitis present Osteoporosis, unspecified osteoporosis type, unspecified pathological fracture presence ([facility]) Hypothyroidism (acquired) ([facility] Unspecified hypothyroidism Anxiety and depression ([facility]) Rheumatoid arthritis, involving unspecified site, unspecified whether rheumatoid factor present ([facility]) Tobacco user Tobacco use disorder Migraine without status migrainosus, not intractable, unspecified migraine type ([facility]) Major depressive disorder with single episode, in remission (HCC) ([facility]) Mixed hyperlipidemia ([facility]) Mixed hyperlipidemia Vitamin D deficiency Environmental and seasonal allergies Hypomagnesemia Disorders of magnesium metabolism Osteoarthritis of spine with radiculopathy, lumbosacral region Hypothyroidism (acquired) ([facility])- Primary Unspecified hypothyroidism Nonintractable epilepsy without status epilepticus, unspecified epilepsy type ([facility]) Seizures ([facility]) Other convulsions Osteoporosis, unspecified osteoporosis type, unspecified pathological fracture presence ([facility]) Depression with anxiety Dysthymic disorder MARY (generalized anxiety disorder) ([facility]) Generalized anxiety disorder Rheumatoid arthritis, involving unspecified site, unspecified whether rheumatoid factor present ([facility]) Tobacco user Tobacco use disorder Abnormal weight gain Obesity with body mass index (BMI) of 30.0 to 39.9 Abnormal weight gain- Primary Tobacco user Tobacco use disorder MARY (generalized anxiety disorder) ([facility]) Generalized anxiety disorder Obesity with body mass index (BMI) of 30.0 to 39.9 Constipation, unspecified constipation type Anxiety and depression ([facility])- Primary Abnormal weight gain Tobacco user Tobacco use disorder Osteoporosis, unspecified osteoporosis type, unspecified pathological fracture presence ([facility] Mixed hyperlipidemia ([facility]) Mixed hyperlipidemia Vitamin D deficiency Environmental and seasonal allergies Hypothyroidism (acquired) ([facility]) Unspecified hypothyroidism Hypomagnesemia Disorders of magnesium metabolism Gastroesophageal reflux disease, unspecified whether esophagitis present MARY (generalized anxiety disorder) ([facility]) Generalized anxiety disorder Major depressive disorder with single episode, in remission (HCC) ([facility]) Seizures ([facility]) Other convulsions Simple chronic bronchitis ([facility]) Simple chronic bronchitis Chronic obstructive pulmonary disease, unspecified COPD type ([facility]) Depression with anxiety Dysthymic disorder Simple chronic bronchitis ([facility]) Simple chronic bronchitis Osteoporosis, unspecified osteoporosis type, unspecified pathological fracture presence ([facility]) Major depressive disorder with single episode, in remission (HCC) ([facility] Mixed hyperlipidemia ([facility]) Mixed hyperlipidemia Vitamin D deficiency Environmental and seasonal allergies Hypothyroidism (acquired) ([facility]) Unspecified hypothyroidism Hypomagnesemia Disorders of magnesium metabolism Gastroesophageal reflux disease, unspecified whether esophagitis present Anxiety and depression ([facility]) MARY (generalized anxiety disorder) ([facility]) Generalized anxiety disorder Seizures ([facility]) Other convulsions [facility] Diagnosis Undifferentiated connective tissue disease- Primary Unspecified diffuse connective tissue disease Inflammatory arthritis Unspecified inflammatory polyarthropathy Multiple joint pain Pain in joint, multiple sites Degeneration of intervertebral disc of lumbar region with discogenic back pain Medication monitoring encounter Encounter for therapeutic drug monitoring DDD (degenerative disc disease), cervical Degeneration of cervical intervertebral disc [facility] Diagnosis Anxiety and depression ([facility])- Primary Seizures ([facility]) Other convulsions Primary insomnia Persistent disorder of initiating or maintaining sleep Thyroid nodule ([facility] Nontoxic uninodular goiter Hypothyroidism (acquired) ([facility]) Unspecified hypothyroidism Major depressive disorder with single episode, in remission (HCC) ([facility] [place]) Mixed hyperlipidemia ([facility]) Mixed hyperlipidemia Anxiety Anxiety state, unspecified Vitamin D deficiency Environmental and seasonal allergies Gastroesophageal reflux disease, unspecified whether esophagitis present MARY (generalized anxiety disorder) ([facility] Generalized anxiety disorder Simple chronic bronchitis ([facility]) Simple chronic bronchitis Anxiety and depression ([facility])- Primary Simple chronic bronchitis ([facility]) Simple chronic bronchitis Anxiety Anxiety state, unspecified Vitamin D deficiency Environmental and seasonal allergies Major depressive disorder with single episode, in remission (HCC) ([facility] [place]) MARY (generalized anxiety disorder) ([facility]) Generalized anxiety disorder Seizures ([facility]) Other convulsions Mixed hyperlipidemia ([facility]) Mixed hyperlipidemia Gastroesophageal reflux disease, unspecified whether esophagitis present Hypothyroidism (acquired) ([facility]) Unspecified hypothyroidism Osteoporosis, unspecified osteoporosis type, unspecified pathological fracture presence ([facility]) Tobacco user Tobacco use disorder Obesity with body mass index (BMI) of 30.0 to 39.9 Age-related osteoporosis without current pathological fracture [facility] Primary Obesity with body mass index (BMI) of 30.0 to 39.9 Tobacco user Tobacco use disorder MARY (generalized anxiety disorder) ([facility])- Primary Generalized anxiety disorder Simple chronic bronchitis ([facility]) Simple chronic bronchitis Seizures ([facility]) Other convulsions Gastroesophageal reflux disease, unspecified whether esophagitis present Osteoporosis, unspecified osteoporosis type, unspecified pathological fracture presence ([facility]) Hypothyroidism (acquired) ([facility] Unspecified hypothyroidism Anxiety and depression ([facility]) Rheumatoid arthritis, involving unspecified site, unspecified whether rheumatoid factor present ([facility]) Tobacco user Tobacco use disorder Migraine without status migrainosus, not intractable, unspecified migraine type ([facility]) Major depressive disorder with single episode, in remission (HCC) ([facility] [place]) Mixed hyperlipidemia ([facility]) Mixed hyperlipidemia Vitamin D deficiency Environmental and seasonal allergies Hypomagnesemia Disorders of magnesium metabolism Osteoarthritis of spine with radiculopathy, lumbosacral region Hypothyroidism (acquired) ([facility])- Primary Unspecified hypothyroidism Nonintractable epilepsy without status epilepticus, unspecified epilepsy type ([facility]) Seizures ([facility]) Other convulsions Osteoporosis, unspecified osteoporosis type, unspecified pathological fracture presence ([facility]) Depression with anxiety Dysthymic disorder MARY (generalized anxiety disorder) ([facility]) Generalized anxiety disorder Rheumatoid arthritis, involving unspecified site, unspecified whether rheumatoid factor present ([facility]) Tobacco user Tobacco use disorder Abnormal weight gain Obesity with body mass index (BMI) of 30.0 to 39.9 Abnormal weight gain- Primary Tobacco user Tobacco use disorder MARY (generalized anxiety disorder) ([facility]) Generalized anxiety disorder Obesity with body mass index (BMI) of 30.0 to 39.9 Constipation, unspecified constipation type Anxiety and depression ([facility])- Primary Abnormal weight gain Tobacco user Tobacco use disorder Osteoporosis, unspecified osteoporosis type, unspecified pathological fracture presence ([facility]) Mixed hyperlipidemia ([facility]) Mixed hyperlipidemia Vitamin D deficiency Environmental and seasonal allergies Hypothyroidism (acquired) ([facility]) Unspecified hypothyroidism Hypomagnesemia Disorders of magnesium metabolism Gastroesophageal reflux disease, unspecified whether esophagitis present MARY (generalized anxiety disorder) ([facility]) Generalized anxiety disorder Major depressive disorder with single episode, in remission (HCC) ([facility]) Seizures (CMS/HCC) Other convulsions Simple chronic bronchitis (CMS/HCC) Simple chronic bronchitis Chronic obstructive pulmonary disease, unspecified COPD type (CMS/HCC) Depression with anxiety Dysthymic disorder Hypothyroidism (acquired) (CMS/HCC)- Primary Unspecified hypothyroidism Rheumatoid arthritis, unspecified Chronic kidney disease, stage 3a (HCC) ([facility]/HCC) Seizures ([facility]/HCC) Other convulsions Gastroesophageal reflux disease, unspecified whether esophagitis present Age-related osteoporosis without current pathological fracture ([facility]) Cigarette nicotine dependence without complication MARY (generalized anxiety disorder) ([facility]/HCC) Generalized anxiety disorder Hypomagnesemia Disorders of magnesium metabolism Migraine without status migrainosus, not intractable, unspecified migraine type (CMS/HCC) Mild episode of recurrent major depressive disorder (HCC) ([facility]) Mixed hyperlipidemia ([facility]) Mixed hyperlipidemia Osteoporosis, unspecified osteoporosis type, unspecified pathological fracture presence ([facility]) Major depressive disorder with single episode, in remission (HCC) ([facility]) Vitamin D deficiency Environmental and seasonal allergies Anxiety and depression ([facility]/HCC) Simple chronic bronchitis ([facility]) Simple chronic bronchitis Insomnia, unspecified type Gastroesophageal reflux disease, unspecified whether esophagitis present- Primary Rheumatoid arthritis with positive rheumatoid factor, involving unspecified site ([facility]) Cigarette nicotine dependence without complication Encounter for screening mammogram for malignant neoplasm of breast Multiple thyroid nodules ([facility])- Primary Nontoxic multinodular goiter documented in this encounter [facility] Diagnosis Anxiety and depression ([facility]/HCC)- Primary Seizures ([facility]/HCC) Other convulsions Primary insomnia Persistent disorder of initiating or maintaining sleep Thyroid nodule ([facility]) Nontoxic uninodular goiter Hypothyroidism (acquired) ([facility]) Unspecified hypothyroidism Major depressive disorder with single episode, in remission (HCC) ([facility]/HCC) Mixed hyperlipidemia ([facility]/HCC) Mixed hyperlipidemia Anxiety Anxiety state, unspecified Vitamin D deficiency Environmental and seasonal allergies Gastroesophageal reflux disease, unspecified whether esophagitis present MARY (generalized anxiety disorder) ([facility]/HCC) Generalized anxiety disorder Simple chronic bronchitis ([facility]/HCC) Simple chronic bronchitis Anxiety and depression ([facility]/HCC)- Primary Simple chronic bronchitis ([facility]/HCC) Simple chronic bronchitis Anxiety Anxiety state, unspecified Vitamin D deficiency Environmental and seasonal allergies Major depressive disorder with single episode, in remission (HCC) ([facility]) MARY (generalized anxiety disorder) ([facility]/HCC) Generalized anxiety disorder Seizures ([facility]) Other convulsions Mixed hyperlipidemia ([facility]) Mixed hyperlipidemia Gastroesophageal reflux disease, unspecified whether esophagitis present Hypothyroidism (acquired) ([facility]) Unspecified hypothyroidism Osteoporosis, unspecified osteoporosis type, unspecified pathological fracture presence ([facility]) Tobacco user Tobacco use disorder Obesity with body mass index (BMI) of 30.0 to 39.9 Age-related osteoporosis without current pathological fracture ([facility])- Primary Obesity with body mass index (BMI) of 30.0 to 39.9 Tobacco user Tobacco use disorder MARY (generalized anxiety disorder) ([facility])- Primary Generalized anxiety disorder Simple chronic bronchitis ([facility]) Simple chronic bronchitis Seizures ([facility]) Other convulsions Gastroesophageal reflux disease, unspecified whether esophagitis present Osteoporosis, unspecified osteoporosis type, unspecified pathological fracture presence ([facility]) Hypothyroidism (acquired) ([facility]) Unspecified hypothyroidism Anxiety and depression ([facility]) Rheumatoid arthritis, involving unspecified site, unspecified whether rheumatoid factor present ([facility]) Tobacco user Tobacco use disorder Migraine without status migrainosus, not intractable, unspecified migraine type ([facility]) Major depressive disorder with single episode, in remission ([facility]) ([facility]) Mixed hyperlipidemia ([facility]) Mixed hyperlipidemia Vitamin D deficiency Environmental and seasonal allergies Hypomagnesemia Disorders of magnesium metabolism Osteoarthritis of spine with radiculopathy, lumbosacral region Hypothyroidism (acquired) ([facility])- Primary Unspecified hypothyroidism Nonintractable epilepsy without status epilepticus, unspecified epilepsy type ([facility]) Seizures ([facility]) Other convulsions Osteoporosis, unspecified osteoporosis type, unspecified pathological fracture presence ([facility]) Depression with anxiety Dysthymic disorder MARY (generalized anxiety disorder) ([facility]) Generalized anxiety disorder Rheumatoid arthritis, involving unspecified site, unspecified whether rheumatoid factor present ([facility]) Tobacco user Tobacco use disorder Abnormal weight gain Obesity with body mass index (BMI) of 30.0 to 39.9 Abnormal weight gain- Primary Tobacco user Tobacco use disorder MARY (generalized anxiety disorder) ([facility]) Generalized anxiety disorder Obesity with body mass index (BMI) of 30.0 to 39.9 Constipation, unspecified constipation type Anxiety and depression ([facility])- Primary Abnormal weight gain Tobacco user Tobacco use disorder Osteoporosis, unspecified osteoporosis type, unspecified pathological fracture presence (CMS/HCC) Mixed hyperlipidemia (CMS/HCC) Mixed hyperlipidemia Vitamin D deficiency Environmental and seasonal allergies Hypothyroidism (acquired) (CMS/HCC) Unspecified hypothyroidism Hypomagnesemia Disorders of magnesium metabolism Gastroesophageal reflux disease, unspecified whether esophagitis present MARY (generalized anxiety disorder) (CMS/HCC) Generalized anxiety disorder Major depressive disorder with single episode, in remission (HCC) ([facility]/HCC) Seizures ([facility]/HCC) Other convulsions Simple chronic bronchitis ([facility]/HCC) Simple chronic bronchitis Chronic obstructive pulmonary disease, unspecified COPD type (CMS/HCC) Depression with anxiety Dysthymic disorder Hypothyroidism (acquired) (CMS/HCC)- Primary Unspecified hypothyroidism Rheumatoid arthritis, unspecified Chronic kidney disease, stage 3a (HCC) ([facility]/HCC) Seizures ([facility]/HCC) Other convulsions Gastroesophageal reflux disease, unspecified whether esophagitis present Age-related osteoporosis without current pathological fracture ([facility]) Cigarette nicotine dependence without complication MARY (generalized anxiety disorder) ([facility]) Generalized anxiety disorder Hypomagnesemia Disorders of magnesium metabolism Migraine without status migrainosus, not intractable, unspecified migraine type ([facility]) Mild episode of recurrent major depressive disorder (HCC) ([facility]) Mixed hyperlipidemia ([facility]/HCC) Mixed hyperlipidemia Osteoporosis, unspecified osteoporosis type, unspecified pathological fracture presence ([facility]) Major depressive disorder with single episode, in remission (HCC) ([facility]) Vitamin D deficiency Environmental and seasonal allergies Anxiety and depression ([facility]/HCC) Simple chronic bronchitis ([facility]) Simple chronic bronchitis Insomnia, unspecified type Hematemesis, unspecified whether nausea present- Primary Gastroesophageal reflux disease, unspecified whether esophagitis present Rheumatoid arthritis with positive rheumatoid factor, involving unspecified site ([facility]) Cigarette nicotine dependence without complication Encounter for screening mammogram for malignant neoplasm of breast Diarrhea, unspecified type Multiple thyroid nodules ([facility]) Nontoxic multinodular goiter Obesity with body mass index (BMI) of 30.0 to 39.9 documented in this encounter [facility]InstructionsNot on filedocumented in this encounterProWestern [facility] SystemInstructionsNot on filedocumented in this encounterProWestern [facility] SystemInstructionsNot on filedocumented in this encounterProWestern [facility] SystemInstructionsNot on filedocumented in this encounterProWestern [facility] System InstructionsNot on filedocumented in this encounterChildren[facility] InstructionsNot on filedocumented in this encounterChildren[facility] Advance Directives Documents on File Type Date Recorded 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 Expl anation ACP-Advance Directive ACP-Power of Coffee Supervisor Latest Code Status on File Code Status Date Activated Date Inactivated Comments Full Code 06/14/2021 9:04 PM Healthcare Agents on File Name Relationship Healthcare Agent Relationshi p Communication Natacha Carrero Spouse Primary Decision Maker Latest Code Status on File Code Status Date Activated Date Inactivated Comments Full Code 06/14/2021 9:04 PM 06/18/2021 4:14 PM Healthcare Agents on File Name Relationship Healthcare Agent Relationshi p Communication Natacha Carrero Spouse Primary Decision Maker Latest Code Status on File Code Status Date Activated Date Inactivated Comments Full Code 05/24/2022 12:20 PM Full Code 05/24/2022 12:20 PM 05/24/2022 12:20 PM Full Code 06/14/2021 9:04 PM 06/18/2021 4:14 PM Healthcare Agents on File Name Relationship Healthcare Agent Relationshi p Communication Natacha Carrero Spouse Primary Decision Maker Summary Purpose Family History No Family History Records FoundNo Family History Records FoundNo Family History Records FoundNo Family History Records FoundNo Family History Records FoundNo Family History Records FoundNo Family History Records FoundNo Family History Records Found Reason for Referral Specialty Diagnoses / Procedures Referred By Kathy stokes Referred To Contact Oral Surgery Diagnoses 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 Procedures EXTRACTION ERUPTED TOOTH/EXR Krystian Munoz DMD, MD [address] [place] [address] Referral ID Status Reason Start Date Expiration Date V isits Requested Visits Authorized [id number] Pending Review 07/18/2022 07/18/2023 1 1 Scheduling Instructions If your in-clinic procedure was not scheduled for you today, please call (option 2) during normal business hours (8 am to 5 pm) on to schedule. Please allow 4 weeks time between the day of your consult to scheduling your procedure to allow the system time to process the order and receive insurance authorization. If your insurance denies all or part of your procedure, you will be contacted with [id number] costs or next steps. All self-pay payments will need to be collected in full prior to having the procedure. Please arrive 30 minutes prior to your procedure. If you are having a local anesthesia procedure: No diet restrictions the day before or day of the procedure. You may take your normal medications as instructed. No covid testing needed. You may drive yourself home afterward. If you are prescribed anxiety reducing medications for the procedure: You also MUST have a rivet driver/escort >18yrs old present to take you home after. If your provider has proposed an IV sedation procedure: Please refer to the instructions given to you at your consult appointment. You will receive a call from a nurse roughly 1 week prior to your procedure to go over any/all instructions. Question Answer What is the procedure for? Dental Please specify: Extractions Please specify: Routine Extraction Routine Extraction--please list tooth number(s): 17, 32 Is Sedation Needed? Local Anesthesia Procedure Length: 60 Which area is this procedure for? Clinic Specialty Diagnoses / Procedures Referred By Kathy stokes Referred To Contact Diagnoses HORACIO (degenerative disc disease), [place] [address] [place] [id number] Referral ID Status Reason Start Date Expiration Date Visits Re quested Visits Authorized [id number] Closed 1 1 Specialty Diagnoses / Procedures Referred By Kathy stokes Referred To Contact Rehabilitation Diagnoses HORACIO (degenerative disc disease), cervical Cristian Szymanski MD [address] [address] [facility] [address] [place] [address] Referral ID Status Reason Start Date Expiration Date Visits Requested Visits Authorized [id number] Authorized Specialty Services Required 12/27/2023 06/28/2024 12 12 Additional Source Comments Reason for Visit (unrecogniz ed section and content) Reason Comments Emesis pt states onset Thur sday Specialty Diagnoses / Procedures Referred By Kathy stokes Referred To Contact Diagnoses Dehydration Pneumonia of right lower lobe due to infectious organism Intractable vomiting with nausea, unspecified vomiting type COVID COVID-19 virus infection Benito Oneal MD [address] [place] [address] [address] [place] [address] [facility] Referral ID Status Reason Start Date Expiration Date Visits Re quested Visits Authorized [id number] 1 1 Reason Comments Seizures 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 Pt arrives alert and oriented, pt denies head/neck pain, pt denies blood thinners Ankle Pain Left ankle/foot from fall during seizure like activity. Specialty Diagnoses / Procedures Referred By Contac t Referred To Contact Diagnoses Multiple fractures of foot, left, closed, initial encounter Ankle fracture, bimalleolar, closed, left, initial encounter L Mid foot fx, Seizures Dhruv Carrillo MD [address] [place] [address] [address] [place] [address] [facility] [address] [place] [address] Referral ID Status Reason Start Date Expiration Date Visits Re quested Visits Authorized [id number] 1 1 Reason Comments New patient, to establish relationship Specialty Diagnoses / Procedures Referred By Contac t Referred To Contact Oral Surgery Diagnoses Dental caries Florentino Cloud, DDS [address] [place] [address] [facility] [address] [place] [address] Referral ID Status Reason Start Date Expiration Date V isits Requested Visits Authorized [id number] Authorized 04/25/2022 04/25/2023 3 3 Reason Comments Med Refill Reason Comments Hypothyroidism Reason Onset Date Comments Med Refill 03/26/2024 Reason Comments Med Change Request Reason Onset Date Comments Med Refill 03/20/2024 Reason Onset Date Comments Med Refill 09/16/2024 Ordered Prescriptions (unrec ognized section and content) Prescription Sig Dispensed Refills Start Date End Da te vitamin D3 (CHOLECALCIFEROL) 25 MCG (1000 UT) TABS tablet Take 1 tablet by mouth daily 30 tablet 0 06/18/2021 zinc sulfate (ZINCATE) 220 (50 Zn) MG capsule Take 2 capsules by mouth daily 30 capsule 3 06/19/2021 Prescription Sig Dispensed Refills Start Date End Da te acyclovir (ZOVIRAX) 800 MG tablet Take 1 tablet by mouth 5 times daily for 10 days 50 tablet 0 05/26/2022 06/05/2022 HYDROcodone-acetaminophe n (NORCO) 5-325 MG per tabletIndications:Multip le fractures of foot, left, closed, initial encounter Take 1 tablet by mouth every 8 hours as needed for Pain for up to 7 days. Intended supply: 7 days. Take lowest dose possible to manage pain 21 tablet 0 05/26/2022 06/02/2022 Scheduled Active and Recently Administ ered Medications (unrecognized section and content) Medication Order 06/16/2021 06/17/2021 06/18/2021 ascorbic acid (VITAMIN C) tablet 2,000 mg 2,000 mg, Oral, 2 TIMES DAILY, First dose on Mon06/14/21 at 2130 1003 (Not Given - Provider: Elba Roe RN - Reason: Other - Comment: Patient not following commands well enough to take multiple PO meds at this time)2036 (Given - Provider: Zoey Ramirez RN) 0945 (Given - Provider: Dipika Alvarado RN)2141 (Given - Provider: Emma Song, DONAL) 0841 (Given - Provider: Elba Roe RN)2100 (Due) atorvastatin (LIPITOR) tablet 10 mg 10 mg, Oral, DAILY, First dose on Mon06/15/21 at 0900 1004 (Not Given - Provider: Elba Roe RN - Reason: Other - Comment: Patient not following commands well enough to take multiple PO meds at this time) 0945 (Given - Provider: Dipika Alvarado RN) 0841 (Given - Provider: Elba Roe RN) busPIRone (BUSPAR) tablet 5 mg 5 mg, Oral, 2 TIMES DAILY, First dose on Mon06/14/21 at 2130 1004 (Not Given - Provider: Elba Roe RN - Reason: Other - Comment: Patient not following commands well enough to take multiple PO meds at this time)2036 (Given - Provider: Zoey Ramirez RN) 0944 (Given - Provider: Dipika Alvarado RN)2141 (Given - Provider: Emma Song RN) 0841 (Given - Provider: Elba Roe RN)2100 (Due) cetirizine (ZYRTEC) tablet 10 mg 10 mg, Oral, DAILY, First dose on Mon06/15/21 at 0900 1005 (Not Given - Provider: Elba Roe RN - Reason: Other - Comment: Patient not following commands well enough to take multiple PO meds at this time) 0945 (Given - Provider: Dipika Alvarado RN) 0841 (Given - Provider: Elba Roe RN) enoxaparin (LOVENOX) injection 30 mg 30 mg, SubCUTAneous, 2 TIMES DAILY, First dose (after last modification) on Mon06/15/21 at 0900 0952 (Given - Provider: Elba Roe RN)2038 (Given - Provider: Zoey Ramirez RN) 0944 (Given - Provider: Dipika Alvarado RN)2142 (Given - Provider: Emma Song RN) 0841 (Given - Provider: Elba Roe RN)2100 (Due) fluticasone (FLONASE) 50 MCG/ACT nasal spray 1 spray 1 spray, Each Nostril, DAILY, First dose on Mon06/15/21 at 0900 0956 (Given - Provider: Elba Roe RN) 0953 (Given - Provider: Dipika Alvarado RN) 0844 (Given - Provider: Elba Roe RN) levothyroxine (SYNTHROID) tablet 25 mcg 25 mcg, Oral, DAILY, First dose on Mon06/15/21 at 0700, Tube feeding (TF) interaction, obtain physician order to manage, recommend holding TF for 30 minutes before and after dose. 0953 (Given - Provider: Elba Roe RN) 0708 (Given - Provider: Zoey Ramirez, DONAL) 0841 (Given - Provider: Elba Roe RN) pantoprazole (PROTONIX) tablet 40 mg 40 mg, Oral, DAILY BEFORE BREAKFAST, First dose on Mon06/15/21 at 0700, Do not crush or break. Substituted for Omeprazole (PRILOSEC). 1005 (Not Given - Provider: Elba Roe RN - Reason: Other - Comment: Patient not following commands well enough to take multiple PO meds at this time) 0708 (Given - Provider: Zoey Ramirez, DONAL) 0841 (Given - Provider: Elba Roe RN) potassium chloride 60 mEq in dextrose 5 % 600 mL IVPB (COMPLETED) IntraVENous, at 100 mL/hr, Administer over 6 Hours, ONCE, On Mon06/16/21 at 1100, For 1 dose 1100 (New Bag - Provider: Elba Roe, DONAL)1243 (Paused - Provider: Elba Roe, RN - Comment: paused for MRI)1415 (Restarted - Provider: Elba Roe RN)2056 (Stopped - Provider: Zoey Ramirez, DONAL) propranolol (INDERAL) tablet 40 mg 40 mg, Oral, 2 TIMES DAILY, First dose on Mon06/14/21 at 2130 1005 (Not Given - Provider: Elba Roe RN - Reason: Other - Comment: Patient not following commands well enough to take multiple PO meds at this time)2036 (Given - Provider: Zoey Ramirez RN) 0945 (Given - Provider: Dipika Alvarado RN)214 (Given - Provider: Emma Song RN) 0841 (Given - Provider: Elba Roe RN)2100 (Due) sertraline (ZOLOFT) tablet 100 mg 100 mg, Oral, DAILY, First dose on Mon06/15/21 at 0900 1005 (Not Given - Provider: Elba Roe RN - Reason: Other - Comment: Patient not following commands well enough to take multiple PO meds at this time) 0945 (Given - Provider: Dipika Alvarado RN) 0841 (Given - Provider: Elba Roe RN) sodium chloride flush 0.9 % injection 5-40 mL 5-40 mL, IntraVENous, EVERY 12 HOURS SCHEDULED (2 times per day), First dose on Mon06/14/21 at 2130, For Line Patency: Peripheral IV = 5 mL; Midline or Central Line = 10 mL/lumen. If following IV push medication, administer flush at same rate as the IV push. Flush volume is determined by type of infusion therapy being given. For non-viscous solutions use: Peripheral IV = 5 mL Midline or Central Line = 10 mL/lumen For viscous solutions (i.e. blood components, parenteral nutrition, contrast media, or after obtaining blood sample) use: Peripheral IV = 10 mL Midline or Central Line = 20 mL/lumen 0957 (Not Given - Provider: Elba Roe RN - Reason: IV Fluid Infusing)2148 (Given - Provider: Zoey Ramirez RN) 0952 (Given - Provider: Dipika Alvarado RN)2133 (Not Given - Provider: Emma Song RN - Reason: IV Fluid Infusing) 075 (Not Given - Provider: Elba Roe RN - Reason: IV Fluid Infusing)2100 (Due) topiramate (TOPAMAX) tablet 25 mg 25 mg, Oral, 2 TIMES DAILY, First dose on Mon06/14/21 at 0, It is not recommended to crush, break, or chew immediate release tablets due to bitter taste. 1005 (Not Given - Provider: Elba Roe RN - Reason: Other - Comment: Patient not following commands well enough to take multiple PO meds at this time)2036 (Given - Provider: Zoey Ramirez, DONAL) 0945 (Given - Provider: Dipika Alvarado RN)2141 (Given - Provider: Emma Song RN) 0841 (Given - Provider: Elba Roe RN)2100 (Due) umeclidinium-vilantero l (ANORO ELLIPTA) 62.5-25 MCG/INH inhaler 1 puff 1 puff, Inhalation, DAILY, First dose on Mon06/15/21 at 0800 0801 (Not Given - Provider: Elba Roe RN - Reason: Medication not available) 0800 (Due) 0630 (Not Given - Provider: Elba Roe RN - Reason: Medication not available) vitamin D (ERGOCALCIFEROL) capsule 50,000 Units 50,000 Units, Oral, DAILY, First dose on Mon06/15/21 at 0900 1006 (Not Given - Provider: Elba Roe RN - Reason: Other - Comment: Patient not following commands well enough to take multiple PO meds at this time) 0945 (Given - Provider: Dipika Alvarado RN) 0841 (Given - Provider: Elba Roe RN) zinc sulfate (ZINCATE) capsule 100 mg 100 mg, Oral, DAILY, First dose on Mon06/15/21 at 0900, Each 220mg Zinc Sulfate cap contains 50mg elemental zinc. 1006 (Not Given - Provider: Elba Roe, DONAL - Reason: Other - Comment: Patient not following commands well enough to take multiple PO meds at this time) 0945 (Given - Provider: Dipika Alvarado RN) 0841 (Given - Provider: Elba Roe RN) Continuous Medication Order 06/16/2021 06/17/2021 06/18/2021 0.9 % sodium chloride infusion (CANCELED) IntraVENous, at 150 mL/hr, CONTINUOUS, Starting on Mon06/14/21 at 2130 0436 (New Bag - Provider: Zoey Ramirez, RN)0956 (Stopped - Provider: Elba Roe RN) potassium chloride 40 mEq in lactated ringers 1,000 mL infusion IntraVENous, at 125 mL/hr, CONTINUOUS, Starting on Mon06/16/21 at 1700 2059 (New Bag - Provider: Zoey Ramirez, DONAL) 0540 (New Bag - Provider: Zoey Ramirez, RN)1539 (New Bag - Provider: Dipika Alvarado RN) 0527 (New Bag - Provider: Emma Song RN) PRN Medication Order 06/16/2021 06/17/2021 06/18/2021 0.9 % sodium chloride infusion 25 mL, IntraVENous, at 100 mL/hr, PRN, If patient receiving piggyback infusions without ordered maintenance IV fluids or with frequent/long duration piggyback infusions, Starting on Mon06/14/21 at 2104, Administer at the same rate as the piggyback being infused. acetaminophen (TYLENOL) suppository 650 mg(Linked Group 1) 650 mg, Rectal, EVERY 6 HOURS PRN, Pain Mild (1-3), Fever, For temp greater than 100.4 F (38 C), Starting on Mon06/14/21 at 2104, Administer if oral route cannot be used. acetaminophen (TYLENOL) tablet 650 mg 650 mg, Oral, EVERY 6 HOURS PRN, Pain Mild (1-3), Pain Moderate (4-6), Fever, Starting on Mon06/14/21 at 2104, Maximum dose of acetaminophen is 4000 mg from all sources in 24 hours. acetaminophen (TYLENOL) tablet 650 mg(Linked Group 1) 650 mg, Oral, EVERY 6 HOURS PRN, Pain Mild (1-3), Fever, For temp greater than 100.4 F (38 C), Starting on Mon06/14/21 at 2104, Maximum dose of acetaminophen is 4000 mg from all sources in 24 hours. albuterol sulfate HFA 108 (90 Base) MCG/ACT inhaler 2 puff 2 puff, Inhalation, EVERY 6 HOURS PRN, Wheezing, Starting on Mon06/14/21 at 2104 gadoteridol (PROHANCE) injection 13 mL (COMPLETED) 13 mL, IntraVENous, IMG ONCE PRN, Other, Starting on Mon06/16/21 at 1342, For 1 dose 1346 (Given - Provider: Gricelda Nunez) ondansetron (ZOFRAN) injection 4 mg(Linked Group 2) 4 mg, IntraVENous, EVERY 6 HOURS PRN, Nausea, Vomiting, Starting on Mon06/14/21 at 2104, Administer if oral route cannot be used. 0104 (Given - Provider: Zoey Ramirez, DONAL) ondansetron (ZOFRAN-ODT) disintegrating tablet 4 mg(Linked Group 2) 4 mg, Oral, EVERY 8 HOURS PRN, Nausea, Vomiting, Starting on Mon06/14/21 at 2104 0104 (See Alternative - Provider: Zoey Ramirez, DONAL) polyethylene glycol (GLYCOLAX) packet 17 g 17 g, Oral, DAILY PRN, Constipation, Starting on Mon06/14/21 at 2104, First line therapy for constipation potassium bicarb-citric acid (EFFER-K) effervescent tablet 40 mEq(Linked Group 3) 40 mEq, Oral, PRN, Per Potassium Replacement Protocol, Starting on Mon06/16/21 at 0929, Administer as alternative if patient unable to tolerate oral tablet. K Lab Replacement Action 3.1 to 3.5 40 mEq ORAL x 1 Under 3.1 Refer to IV replacement protocol Recheck K level in AM. Protocol not for use in patients with CrCl less than 30 mL/min. Do not chew or crush. Dissolve flavored tablets completely in 3 to 4 ounces of cold water; unflavored tablets may be dissolved in 3 to 4 ounces of cold juice. Patient to sip slowly over a 5 to 10 minute period. May further dilute if GI adverse effects occur. 2339 (See Alternative - Provider: Zoey Ramirez RN) 0043 (See Alternative - Provider: Zoey Ramirez RN)0145 (See Alternative - Provider: Zoey Ramirez RN)0250 (See Alternative - Provider: Zoey Ramirez RN)0410 (See Alternative - Provider: Zoey Ramirez RN)0538 (See Alternative - Provider: Zoey Ramirez RN) potassium chloride (KLOR-CON M) extended release tablet 40 mEq(Linked Group 3) 40 mEq, Oral, PRN, Per Potassium Replacement Protocol, Starting on Mon06/16/21 at 0929, May give alternative linked oral order (ordered as effervescent, packet, or liquid solution) if patient unable to tolerate tablet. K Lab Replacement Action 3.1 to 3.5 40 mEq ORAL x 1 Under 3.1 Refer to IV replacement protocol Recheck K level in AM. Protocol not for use in patients with CrCl less than 30 mL/min. 2339 (See Alternative - Provider: Zoey Ramirez RN) 004 (See Alternative - Provider: Zoey Ramirez RN)0145 (See Alternative - Provider: Zoey Ramirez RN)0250 (See Alternative - Provider: Zoey Ramirez RN)0410 (See Alternative - Provider: Zoey Ramirez RN)0538 (See Alternative - Provider: Zoey Ramirez RN) potassium chloride 10 mEq/100 mL IVPB (Peripheral Line)(Linked Group 3) 10 mEq, IntraVENous, at 100 mL/hr, PRN, Per Potassium Replacement Protocol, Starting on Mon06/16/21 at 0929, K Lab Replacement Action 2.7 to 3.0 10 mEq IVPB x 6 doses (60 mEq Total) Under 2.7 CALL PROVIDER and administer 10 mEq IVPB x 6 doses (60 mEq Total) Infuse at 10 mEq/hr. Repeat Potassium lab 1 hour after final administration. Protocol not for use in patients with CrCl less than 30 mL/min. 2339 (New Bag - Provider: Zoey Ramirez RN) 0043 (New Bag - Provider: Zoey Ramirez RN)0145 (New Bag - Provider: Zoey Ramirez RN)0250 (New Bag - Provider: Zoey Ramirez RN)0410 (New Bag - Provider: Zoey Ramirez RN)0538 (New Bag - Provider: Zoey Ramirez RN) sodium chloride flush 0.9 % injection 10 mL 10 mL, IntraVENous, PRN, Line Care, After every IV line use, Starting on Mon06/14/21 at 2104 Linked Groups Order Group 1: acetaminophen (TYLENOL) tablet 650 mgJump to med 650 mg, Oral, EVERY 6 HOURS PRN, Pain Mild (1-3), Fever, For temp greater than 100.4 F (38 C), Starting on Mon06/14/21 at 2103
Maximum dose of acetaminophen is 4000 mg from all sources in 24 hours.
Or acetaminophen (TYLENOL) suppository 650 mgJump to med 650 mg, Rectal, EVERY 6 HOURS PRN, Pain Mild (1-3), Fever, For temp greater than 100.4 F (38 C), Starting on Mon06/14/21 at 210
Administer if oral route cannot be used.
Group 2: ondansetron (ZOFRAN-ODT) disintegrating tablet 4 mgJump to med 4 mg, Oral, EVERY 8 HOURS PRN, Nausea, Vomiting, Starting on Mon06/14/21 at 2104 Or ondansetron (ZOFRAN) injection 4 mgJump to med 4 mg, IntraVENous, EVERY 6 HOURS PRN, Nausea, Vomiting, Starting on Mon06/14/21 at 210
Administer if oral route cannot be used.
Group 3: potassium chloride (KLOR-CON M) extended release tablet 40 mEqJump to med 40 mEq, Oral, PRN, Per Potassium Replacement Protocol, Starting on Mon06/16/21 at 0929
May give alternative linked oral order (ordered as effervescent, packet, or liquid solution) if patient unable to tolerate tablet. K Lab Repla cemen t Action 3.1 to 3.5 40 mEq ORAL x 1 Under 3.1 Refer to IV replacement protocol Recheck K level in AM. Protocol not for use in patients with CrCl less than 30 mL/min.
Or potassium bicarb-citric acid (EFFER-K) effervescent tablet 40 mEqJump to med 40 mEq, Oral, PRN, Per Potassium Replacement Protocol, Starting on Mon06/16/21 at 09
Administer as alternative if patient unable to tolerate oral tablet. K Lab Repla cemen t Action 3.1 to 3.5 40 mEq ORAL x 1 Under 3.1 Refer to IV replacement protocol Recheck K level in AM. Protocol not for use in patients with CrCl less than 30 mL/min. Do not chew or crush. Dissolve flavored tablets completely in 3 to 4 ounces of cold water; unflavored tablets may be dissolved in 3 to 4 ounces of cold juice. Patient to sip slowly over a 5 to 10 minute period. May further dilute if GI adverse effects occur.
Or potassium chloride 10 mEq/100 mL IVPB (Peripheral Line)Jump to med 10 mEq, IntraVENous, at 100 mL/hr, PRN, Per Potassium Replacement Protocol, Starting on Mon06/16/21 at 09
K Lab Replacement Action 2.7 to 3.0 10 mEq IVPB x 6 doses (60 mEq Total) Under 2.7 CALL PROVIDER and administer 10 mEq IVPB x 6 doses (60 mEq Total) Infuse at 10 mEq/hr. Repeat Potassium lab 1 hour after final administration. Protocol not for use in patients with CrCl less than 30 mL/min.
Scheduled Medication Order 05/22/2022 05/23/2022 05/24/2022 HYDROcodone-acetaminophen (NORCO) 5-325 MG per tablet 1 tablet (COMPLETED) 1 tablet, Oral, ONCE, 1 dose, On Mon05/23/22 at 2345, Maximum dose of acetaminophen is 4000 mg from all sources in 24 hours. 2347 (Given - Provider: Najma Cortes RN) morphine (PF) injection 2 mg (COMPLETED) 2 mg, IntraVENous, ONCE, 1 dose, On Mon05/24/22 at 0030, If oral and IV narcotics ordered, use oral first and only use IV if oral is ineffective or cannot take oral. Do Not give oral and IV within 1 hour of each other unless specifically ordered. 0033 (Given - Provid er: Najma Cortes RN) ondansetron (ZOFRAN) injection 4 mg (COMPLETED) 4 mg, IntraVENous, ONCE, 1 dose, On Mon05/24/22 at 0030 0033 (Given - Provid er: Najma Cortes RN) PRN Medication Order 05/22/2022 05/23/2022 05/24/2022 fentaNYL (SUBLIMAZE) injection 25 mcg 25 mcg, IntraVENous, EVERY 2 HOURS PRN, Starting on Mon05/24/22 at 0314, Until Discontinued, Pain Moderate (4-6), If oral and IV narcotics ordered, use oral first and only use IV if oral is ineffective or cannot take oral. Do Not give oral and IV within 1 hour of each other unless specifically ordered. 0345 (Given - Provid er: Najma Cortes RN)0553 (Given - Provider: Janell Zepeda RN)0827 (Given - Provider: Willi Oscar RN) Scheduled Medication Order 05/24/2022 05/25/2022 05/26/2022 acyclovir (ZOVIRAX) tablet 800 mg 800 mg, Oral, 5 TIMES DAILY, First dose on Mon05/25/22 at 1930, Until Discontinued, Antimicrobial Indications: Other, Other Abx Indication: herpes zoster per [facility] recommend pt be on acyclovir 800mg 5 times daily., Suspected Organism(s): herpes zoster, Substituted for Famciclovir (FAMVIR). 2029 (Given - Provider: Tiffany Albrecht RN)2315 (Given - Provider: Tiffany Albrecht RN) 0641 (Given - Provider: Tiffany Albrecht RN)110 (Given - Provider: Janet South RN)1500 (Due)1900 (Due)2300 (Due) atorvastatin (LIPITOR) tablet 10 mg 10 mg, Oral, Nightly, First dose on Mon05/24/22 at 2100, Until Discontinued 2100 (Given - Provider: Tiffany Albrecht RN) 2029 (Given - Provider: Tiffany Albrecht RN) 2100 (Due) busPIRone (BUSPAR) tablet 5 mg 5 mg, Oral, 2 TIMES DAILY, First dose on Mon05/24/22 at 1245, Until Discontinued 1510 (Not Given - Provider: Patria Fuentes RN - Reason: Patient/family refused)2100 (Given - Provider: Tiffany Albrecht RN) 0850 (Given - Provider: Quynh Kline)2029 (Given - Provider: Tiffany Albrecht RN) 0728 (Given - Provider: Janet South, DONAL)2100 (Due) cetirizine (ZYRTEC) tablet 10 mg 10 mg, Oral, DAILY, First dose on Mon05/24/22 at 1245, Until Discontinued 1500 (Given - Provider: Patria Fuentes RN) 0851 (Given - Provider: Quynh Kline) 0728 (Given - Provider: Janet South, DONAL) enoxaparin (LOVENOX) injection 40 mg (CANCELED) 40 mg, SubCUTAneous, DAILY, First dose on Mon05/24/22 at 1615, Until Discontinued, Indication of Use: Treatment-DVT/PE 1654 (Given - Provider: Patria Fuentes RN) 0851 (Given - Provider: Quynh Kline) enoxaparin (LOVENOX) injection 40 mg 40 mg, SubCUTAneous, DAILY, First dose (after last modification) on Celia 05/26/22 at 0900, Until Discontinued, Indication of Use: Prophylaxis-DVT/PE 0740 (Given - Provider: Janet South, DONAL) fluticasone (FLONASE) 50 MCG/ACT nasal spray 1 spray 1 spray, Each Nostril, DAILY, First dose on Mon05/24/22 at 1245, Until Discontinued 1459 (Given - Provider: Patria Fuentes RN) 0852 (Given - Provider: Quynh Kline) 0730 (Given - Provider: Janet South, DONAL) levothyroxine (SYNTHROID) tablet 25 mcg 25 mcg, Oral, DAILY, First dose on Mon05/24/22 at 1245, Until Discontinued, Tube feeding (TF) interaction, obtain physician order to manage, recommend holding TF for 30 minutes before and after dose. 1459 (Given - Provider: Patria Fuentes RN) 0506 (Given - Provider: Tiffany Albrecht, DONAL) 0641 (Given - Provider: Tiffany Albrecht, DONAL) nicotine (NICODERM CQ) 21 MG/24HR 1 patch 1 patch, TransDERmal, Administer over 24 Hours, DAILY, First dose on Mon05/24/22 at 1245, Apply new patch to nonhairy, clean, dry skin on the upper body or upper outer arm. Rotate patch sites. Notify pharmacy if patient or provider prefers patch to be removed at bedtime and replaced in the morning. Hazardous Medication -- Refer to facility policy for handling and disposal. 1459 (Patch Applied - Provider: Patria Fuentes RN) 0930 (Patch Applied - Provider: Jacqui Luu)0939 (Patch Removed - Provider: Jacqui Luu - Comment: removed at 0938) 0728 (Patch Applied - Provider: Janet South, DONAL) pantoprazole (PROTONIX) tablet 40 mg 40 mg, Oral, DAILY, First dose on Mon05/24/22 at 1245, Until Discontinued, Do not crush or break. 1502 (Given - Provider: Patria Fuentes RN) 0919 (Given - Provider: Jacqui Luu) 0728 (Given - Provider: Janet South, DONAL) polyethylene glycol (GLYCOLAX) packet 17 g 17 g, Oral, DAILY, First dose (after last modification) on Mon05/25/22 at 0900, Until Discontinued, First line therapy for constipation 0932 (Given - Provider: Jacqui Luu) 0731 (Not Given - Provider: Janet South, DONAL - Reason: Patient/family refused) sertraline (ZOLOFT) tablet 100 mg 100 mg, Oral, DAILY, First dose on Mon05/24/22 at 1245, Until Discontinued 1500 (Given - Provider: Patria Fuentes RN) 09 (Given - Provider: Jacqui Luu) 0728 (Given - Provider: Janet South, DONAL) sodium chloride flush 0.9 % injection 5-40 mL 5-40 mL, IntraVENous, EVERY 12 HOURS SCHEDULED (2 times per day), First dose on Mon05/24/22 at 2100, Until Discontinued, For Line Patency: Peripheral IV = 5 mL; Midline or Central Line = 10 mL/lumen. If following IV push medication, administer flush at same rate as the IV push. Flush volume is determined by type of infusion therapy being given. For non-viscous solutions use: Peripheral IV = 5 mL Midline or Central Line = 10 mL/lumen For viscous solutions (i.e. blood components, parenteral nutrition, contrast media, or after obtaining blood sample) use: Peripheral IV = 10 mL Midline or Central Line = 20 mL/lumen 2100 (Given - Provider: Tiffany Albrecht RN) 115 (Given - Provider: Mishel Leroy RN)2030 (Not Given - Provider: Tiffany Albrecht RN - Reason: Loss of IV access) 0736 (Not Given - Provider: Janet South RN - Reason: Loss of IV access)2100 (Due) tiotropium-olodaterol (STIOLTO) 2.5-2.5 MCG/ACT inhaler 2 puff 2 puff, Inhalation, DAILY, First dose on Mon05/24/22 at 1245, Until Discontinued, Substituted for Umeclidinium-Vilanterol (ANORO ELLIPTA). 2034 (Canceled Entry - Provider: Nathalie Soto RCP - Comment: will give at appropriate time in AM) 0928 (Given - Provider: Cassandra Jerry RCP) 0821 (Given - Provider: Ana Harris RCP) topiramate (TOPAMAX) tablet 125 mg 125 mg, Oral, 2 TIMES DAILY, First dose on Mon05/24/22 at 1245, Until Discontinued, It is not recommended to crush, break, or chew immediate release tablets due to bitter taste. 145 (Given - Provider: Patria Fuentes, DONAL)2100 (Given - Provider: Tiffany Albrecht, DONAL) 09 (Given - Provider: Jacqui Luu)2029 (Given - Provider: Tiffany Albrecht, DONAL) 0731 (Given - Provider: Janet South RN)2100 (Due) PRN Medication Order 05/24/2022 05/25/2022 05/26/2022 0.9 % sodium chloride infusion IntraVENous, at 5-250 mL/hr, PRN, if patient receiving piggyback infusions and maintenance fluids are not ordered OR KVO fluids to protect IV site / prevent frequent line interruptions/ long duration, Starting on Mon05/24/22 at 1212, For piggyback infusion, administer at same rate as piggyback for a total of 25 mL. Enter 25 mL into dose field and piggyback rate into rate field of order. If piggyback is infusing at a rate less than 100 mL/hr, enter 25 mL into dose field and 100 mL/hr into rate field of order. For KVO fluids, enter rate of 20 mL/hr or less into rate field of order. acetaminophen (TYLENOL) suppository 650 mg(Linked Group 1) 650 mg, Rectal, EVERY 6 HOURS PRN, Starting on Mon05/24/22 at 1212, Until Discontinued, Pain Mild (1-3), Fever, For temp greater than 100.4 F (38 C), Administer if oral route cannot be used. acetaminophen (TYLENOL) tablet 650 mg(Linked Group 1) 650 mg, Oral, EVERY 6 HOURS PRN, Starting on Mon05/24/22 at 1212, Until Discontinued, Pain Mild (1-3), Fever, For temp greater than 100.4 F (38 C), Maximum dose of acetaminophen is 4000 mg from all sources in 24 hours. albuterol sulfate HFA (PROVENTIL;VENTOLIN;PROA IR) 108 (90 Base) MCG/ACT inhaler 2 puff 2 puff, Inhalation, EVERY 6 HOURS PRN, Starting on Mon05/24/22 at 1205, Until Discontinued, Wheezing, Initiate RT Bronchodilator Protocol: Yes - Inpatient Protocol HYDROcodone-acetaminophe n (NORCO) 5-325 MG per tablet 1 tablet(Linked Group 2) 1 tablet, Oral, EVERY 4 HOURS PRN, Starting on Mon05/24/22 at 1217, Until Discontinued, Pain Moderate (4-6), Maximum dose of acetaminophen is 4000 mg from all sources in 24 hours. 1502 (See Alternative - Provider: Patria Fuentes RN)210 (See Alternative - Provider: Tiffany Albrecht RN) 045 (See Alternative - Provider: Tiffany Albrecht RN)0911 (See Alternative - Provider: Jacqui Luu)1317 (See Alternative - Provider: Misehl Leroy RN)181 (See Alternative - Provider: Mishel Leroy RN)2216 (See Alternative - Provider: Tiffany Albrecht RN) 0358 (See Alternative - Provider: Tiffany Albrecht RN)0740 (See Alternative - Provider: Janet South RN) HYDROcodone-acetaminophe n (NORCO) 5-325 MG per tablet 2 tablet(Linked Group 2) 2 tablet, Oral, EVERY 4 HOURS PRN, Starting on Mon05/24/22 at 1217, Until Discontinued, Pain Severe (7-10), Maximum dose of acetaminophen is 4000 mg from all sources in 24 hours. 1502 (Given - Provider: Patria Fuentes RN)2101 (Given - Provider: Tiffany Albrecht RN) 0452 (Given - Provider: Tiffany Albrecht RN)0911 (Given - Provider: Jacqui Luu)1317 (Given - Provider: Mishel Leroy RN)181 (Given - Provider: Mishel Leroy RN)2216 (Given - Provider: Tiffany Albrecht RN) 0358 (Given - Provider: Tiffany Albrecht RN)0740 (Given - Provider: Janet South RN) LORazepam (ATIVAN) injection 2 mg 2 mg, IntraVENous, EVERY 6 HOURS PRN, Starting on Mon05/24/22 at 1220, Until Discontinued, Seizures magnesium sulfate 2000 mg in 50 mL IVPB premix 2,000 mg, IntraVENous, at 25 mL/hr, Administer over 2 Hours, PRN, Other, Magnesium Replacement, Starting on Mon05/24/22 at 1217, Mg Lab Replacement Action 1.4-1.6 2 gram IVPB x 1 doses (2 grams total) 1.0-1.3 2 gram IVPB x 2 doses (4 grams total) Less than 1.0 CALL PHYSICIAN and 2 gram IVPB x 2 doses (4 grams total) Infuse at 1 gram/hr. Repeat Mag level next AM. Not for use in Patients with CrCl less than 30 mL/min. morphine (PF) injection 2 mg(Linked Group 3) 2 mg, IntraVENous, EVERY 2 HOURS PRN, Starting on Mon05/24/22 at 1217, Until Discontinued, Pain Moderate (4-6), If oral and IV narcotics ordered, use oral first and only use IV if oral is ineffective or cannot take oral. Do Not give oral and IV within 1 hour of each other unless specifically ordered. 1249 (See Alternative - Provider: Patria Fuentes RN)1655 (See Alternative - Provider: Patria Fuentes RN) 0019 (Given - Provider: Tiffany Albrecht RN)1151 (See Alternative - Provider: Mishel Leroy RN) morphine injection 4 mg(Linked Group 3) 4 mg, IntraVENous, EVERY 2 HOURS PRN, Starting on Mon05/24/22 at 1217, Until Discontinued, Pain Severe (7-10), If oral and IV narcotics ordered, use oral first and only use IV if oral is ineffective or cannot take oral. Do Not give oral and IV within 1 hour of each other unless specifically ordered. 1249 (Given - Provider: Patria Fuentes RN)1655 (Given - Provider: Patria Fuentes RN) 0019 (See Alternative - Provider: Tiffany Albrecht RN)1151 (Given - Provider: Mishel Leroy RN) ondansetron (ZOFRAN) injection 4 mg(Linked Group 4) 4 mg, IntraVENous, EVERY 6 HOURS PRN, Starting on Mon05/24/22 at 1212, Until Discontinued, Nausea, Vomiting, Administer if oral route cannot be used. ondansetron (ZOFRAN-ODT) disintegrating tablet 4 mg(Linked Group 4) 4 mg, Oral, EVERY 8 HOURS PRN, Starting on Mon05/24/22 at 1212, Until Discontinued, Nausea, Vomiting potassium bicarb-citric acid (EFFER-K) effervescent tablet 40 mEq(Linked Group 5) 40 mEq, Oral, PRN, Starting on Mon05/24/22 at 1217, Until Discontinued, Per Potassium Replacement Protocol, Administer as alternative if patient unable to tolerate oral tablet. K Lab Replacement Action 3.1 to 3.5 40 mEq ORAL x 1 Under 3.1 Refer to IV replacement protocol Recheck K level in AM. Protocol not for use in patients with CrCl less than 30 mL/min. Do not chew or crush. Dissolve flavored tablets completely in 3 to 4 ounces of cold water; unflavored tablets may be dissolved in 3 to 4 ounces of cold juice. Patient to sip slowly over a 5 to 10 minute period. May further dilute if GI adverse effects occur. potassium chloride (KLOR-CON M) extended release tablet 40 mEq(Linked Group 5) 40 mEq, Oral, PRN, Starting on Mon05/24/22 at 1217, Until Discontinued, Potassium Replacement, May give alternative linked oral order (ordered as effervescent, packet, or liquid solution) if patient unable to tolerate tablet. K Lab Replacement Action 3.1 to 3.5 40 mEq ORAL x 1 Under 3.1 Refer to IV replacement protocol Recheck K level in AM. Protocol not for use in patients with CrCl less than 30 mL/min. potassium chloride 10 mEq/100 mL IVPB (Peripheral Line)(Linked Group 5) For doses greater than 10 mEq, change frequency to every one hour for x number of doses., 10 mEq, IntraVENous, PRN, Starting on Mon05/24/22 at 1217, Until Discontinued, at 100 mL/hr, Potassium Replacement, K Lab Replacement Action 2.7 to 3.0 10 mEq IVPB x 6 doses (60 mEq Total) Under 2.7 CALL PROVIDER and administer 10 mEq IVPB x 6 doses (60 mEq Total) Infuse at 10 mEq/hr. Repeat Potassium lab 1 hour after final administration. Protocol not for use in patients with CrCl less than 30 mL/min. sodium chloride flush 0.9 % injection 5-40 mL 5-40 mL, IntraVENous, PRN, Starting on Mon05/24/22 at 1212, Until Discontinued, Line Care, After every IV line use, For Line Patency: Peripheral IV = 5 mL; Midline or Central Line = 10 mL/lumen. If following IV push medication, administer flush at same rate as the IV push. Flush volume is determined by type of infusion therapy being given. For non-viscous solutions use: Peripheral IV = 5 mL Midline or Central Line = 10 mL/lumen For viscous solutions (i.e. blood components, parenteral nutrition, contrast media, or after obtaining blood sample) use: Peripheral IV = 10 mL Midline or Central Line = 20 mL/lumen 1251 (Given - Provider: Patria Fuentes RN) Linked Groups Order Group 1: acetaminophen (TYLENOL) tablet 650 mgJump to med 650 mg, Oral, EVERY 6 HOURS PRN, Starting on Mon05/24/22 at 1212, Until Discontinued, Pain Mild (1-3), Fever, For temp greater than 100.4 F (38 C)
Maximum dose of acetaminophen is 4000 mg from all sources in 24 hours.
Or acetaminophen (TYLENOL) suppository 650 mgJump to med 650 mg, Rectal, EVERY 6 HOURS PRN, Starting on Mon05/24/22 at 1212, Until Discontinued, Pain Mild (1-3), Fever, For temp greater than 100.4 F (38 C)
Administer if oral route cannot be used.
Group 2: HYDROcodone-acetaminophen (NORCO) 5-325 MG per tablet 1 tabletJump to med 1 tablet, Oral, EVERY 4 HOURS PRN, Starting on Mon05/24/22 at 1217, Until Discontinued, Pain Moderate (4-6)
Maximum dose of acetaminophen is 4000 mg from all sources in 24 hours.
Or HYDROcodone-acetaminophen (NORCO) 5-325 MG per tablet 2 tabletJump to med 2 tablet, Oral, EVERY 4 HOURS PRN, Starting on Mon05/24/22 at 1217, Until Discontinued, Pain Severe (7-10)
Maximum dose of acetaminophen is 4000 mg from all sources in 24 hours.
Group 3: morphine (PF) injection 2 mgJump to med 2 mg, IntraVENous, EVERY 2 HOURS PRN, Starting on Mon05/24/22 at 1217, Until Discontinued, Pain Moderate (4-6)
If oral and IV narcotics ordered, use oral first and only use IV if oral is ineffective or cannot take oral. Do Not give oral and IV within 1 hour of each other unless specifically ordered.
Or morphine injection 4 mgJump to med 4 mg, IntraVENous, EVERY 2 HOURS PRN, Starting on Mon05/24/22 at 1217, Until Discontinued, Pain Severe (7-10)
If oral and IV narcotics ordered, use oral first and only use IV if oral is ineffective or cannot take oral. Do Not give oral and IV within 1 hour of each other unless specifically ordered.
Group 4: ondansetron (ZOFRAN-ODT) disintegrating tablet 4 mgJump to med 4 mg, Oral, EVERY 8 HOURS PRN, Starting on Mon05/24/22 at 1212, Until Discontinued, Nausea, Vomiting Or ondansetron (ZOFRAN) injection 4 mgJump to med 4 mg, IntraVENous, EVERY 6 HOURS PRN, Starting on Mon05/24/22 at 1212, Until Discontinued, Nausea, Vomiting
Administer if oral route cannot be used.
Group 5: potassium chloride (KLOR-CON M) extended release tablet 40 mEqJump to med 40 mEq, Oral, PRN, Starting on Mon05/24/22 at 1217, Until Discontinued, Potassium Replacement
May give alternative linked oral order (ordered as effervescent, packet, or liquid solution) if patient unable to tolerate tablet. K Lab Repla cemen t Action 3.1 to 3.5 40 mEq ORAL x 1 Under 3.1 Refer to IV replacement protocol Recheck K level in AM. Protocol not for use in patients with CrCl less than 30 mL/min.
Or potassium bicarb-citric acid (EFFER-K) effervescent tablet 40 mEqJump to med 40 mEq, Oral, PRN, Starting on Mon05/24/22 at 1217, Until Discontinued, Per Potassium Replacement Protocol
Administer as alternative if patient unable to tolerate oral tablet. K Lab Repla cemen t Action 3.1 to 3.5 40 mEq ORAL x 1 Under 3.1 Refer to IV replacement protocol Recheck K level in AM. Protocol not for use in patients with CrCl less than 30 mL/min. Do not chew or crush. Dissolve flavored tablets completely in 3 to 4 ounces of cold water; unflavored tablets may be dissolved in 3 to 4 ounces of cold juice. Patient to sip slowly over a 5 to 10 minute period. May further dilute if GI adverse effects occur.
Or potassium chloride 10 mEq/100 mL IVPB (Peripheral Line)Jump to med For doses greater than 10 mEq, change frequency to every one hour for x number of doses.
10 mEq, IntraVENous, PRN, Starting on Mon05/24/22 at 1217, Until Discontinued, at 100 mL/hr, Potassium Replacement
K Lab Replacement Action 2.7 to 3.0 10 mEq IVPB x 6 doses (60 mEq Total) Under 2.7 CALL PROVIDER and administer 10 mEq IVPB x 6 doses (60 mEq Total) Infuse at 10 mEq/hr. Repeat Potassium lab 1 hour after final administration. Protocol not for use in patients with CrCl less than 30 mL/min.
Care Teams (unrecognized sec tion and content) Skill Training Program Coordinator Relationship Specialty Start Date End Date Minda Yeboah [address] [facility] [place] [address] PCP - General Nurse Practitioner 06/18/21 Skill Training Program Coordinator Relationship Specialty Start Date End Date Mnida Yeboah [address] [place] [address] PCP - General Nurse Practitioner 06/18/21 Skill Training Program Coordinator Relationship Specialty Start Date End Date Minda Yeboah [address] [place] [address] PCP - General Nurse Practitioner 06/18/21 Skill Training Program Coordinator Relationship Specialty Start Date End Date Tony Mathur MD [address] [place] [address] PCP - General Family Medicine 09/19/23 Minda Yeboah NP [address] [place] [address] Referring Physician Nurse Practitioner 02/10/23 Minda Yeboah NP [address] [place] [address] Nurse Practitioner Family Medicine 09/19/23 Skill Training Program Coordinator Relationship Specialty Start Date End Date Tony Mathur MD [address] [place] [address] PCP - General Family Medicine 09/19/23 Minda Yeboah NP [address] [place] [address] Referring Physician Nurse Practitioner 02/10/23 Minda Yeboah NP [address] [place] [address] Nurse Practitioner Family Medicine 09/19/23 Skill Training Program Coordinator Relationship Specialty Start Date End Date Tony Mathur MD [address] [place] [address] PCP - General Family Medicine 09/19/23 Minda Yeboah NP [address] [place] [address] Referring Physician Nurse Practitioner 02/10/23 Minda Yeboah NP [address] [place] [address] Nurse Practitioner Family Medicine 09/19/23 Skill Training Program Coordinator Relationship Specialty Start Date End Date Tony Mathur MD [address] [place] [address] PCP - General Family Medicine 09/19/23 Minda Yeboah NP [address] [place] [address] Referring Physician Nurse Practitioner 02/10/23 Minda Yeboah NP [address] [place] [address] Nurse Practitioner Family Medicine 09/19/23 Skill Training Program Coordinator Relationship Specialty Start Date End Date Tony Mathur MD [address] [place] [address] PCP - General Family Medicine 09/19/23 Minda Yeboah NP [address] [place] [address] Referring Physician Nurse Practitioner 02/10/23 Minda Yeboah NP [address] [place] [address] Nurse Practitioner Family Medicine 09/19/23 Skill Training Program Coordinator Relationship Specialty Start Date End Date Tony Mathur MD [address] [place] [address] PCP - General Family Medicine 09/19/23 Minda Yeboah NP [address] [place] [address] Referring Physician Nurse Practitioner 02/10/23 Minda Yeboah NP [address] [place] [address] Nurse Practitioner Family Medicine 09/19/23 Skill Training Program Coordinator Relationship Specialty Start Date End Date Tony Mathur MD [address] [place] [address] PCP - General Family Medicine 09/19/23 Minda Yeboah NP [address] [place] [address] Referring Physician Nurse Practitioner 02/10/23 Minda Yeboah NP [address] [place] [address] Nurse Practitioner Family Medicine 09/19/23 Skill Training Program Coordinator Relationship Specialty Start Date End Date Tony Mathur MD [address] [place] [address] PCP - General Family Medicine 09/19/23 Minda Yeboah NP [address] [place] [address] Referring Physician Nurse Practitioner 02/10/23 Minda Yeboah NP [address] [place] [address] Nurse Practitioner Family Medicine 09/19/23 Skill Training Program Coordinator Relationship Specialty Start Date End Date Tony Mathur MD [address] [place] [address] PCP - General Family Medicine 09/19/23 Minda Yeboah NP [address] [place] [address] Referring Physician Nurse Practitioner 02/10/23 Minda Yeboah NP [address] [place] [address] Nurse Practitioner Family Medicine 09/19/23 Skill Training Program Coordinator Relationship Specialty Start Date End Date Tony Mathur MD [address] [place] [address] PCP - General Family Medicine 09/19/23 Minda Yeboah NP [address] [place] [address] Referring Physician Nurse Practitioner 02/10/23 Minda Yeboah NP [address] [place] [address] Nurse Practitioner Family Medicine 09/19/23 Skill Training Program Coordinator Relationship Specialty Start Date End Date Tony Mathur MD [address] [place] [address] PCP - General Family Medicine 09/19/23 Minda Yeboah NP [address] [place] [address] Referring Physician Nurse Practitioner 02/10/23 Minda Yeboah NP [address] [place] [address] Nurse Practitioner Family Medicine 09/19/23 Skill Training Program Coordinator Relationship Specialty Start Date End Date Tony Mathur MD [address] [place] [address] PCP - General Family Medicine 09/19/23 Minda Yeboah NP [address] [place] [address] Referring Physician Nurse Practitioner 02/10/23 Minda Yeboah NP [address] [place] [address] Nurse Practitioner Family Medicine 09/19/23 Skill Training Program Coordinator Relationship Specialty Start Date End Date Tony Mathur MD [address] [place] [address] PCP - General Family Medicine 09/19/23 Minda Yeboah NP [address] [place] [address] Referring Physician Nurse Practitioner 02/10/23 Minda Yeboah NP [address] [place] [address] Nurse Practitioner Family Medicine 09/19/23 Skill Training Program Coordinator Relationship Specialty Start Date End Date Tony Mathur MD [address] [place] [address] PCP - General Family Medicine 09/19/23 Minda Yeboah NP [address] [place] [address] Referring Physician Nurse Practitioner 02/10/23 Minda Yeboah NP [address] [place] [address] Nurse Practitioner Family Medicine 09/19/23 Skill Training Program Coordinator Relationship Specialty Start Date End Date Tony Mathur MD [address] [place] [address] PCP - General Family Medicine 09/19/23 Minda Yeboah NP [address] [place] [address] Referring Physician Nurse Practitioner 02/10/23 Minda Yeboah NP [address] [place] [address] Nurse Practitioner Family Medicine 09/19/23 Skill Training Program Coordinator Relationship Specialty Start Date End Date Tony Mathur MD [address] [place] [address] PCP - General Family Medicine 09/19/23 Minda Yeboah NP [address] [place] [address] Referring Physician Nurse Practitioner 02/10/23 Minda Yeboah NP [address] [place] [address] Nurse Practitioner Family Medicine 09/19/23 Skill Training Program Coordinator Relationship Specialty Start Date End Date Tony Mathur MD [address] [place] [address] PCP - General Family Medicine 09/19/23 Minda Yeboah NP [address] [place] [address] Referring Physician Nurse Practitioner 02/10/23 Minda Yeboah NP [address] [place] [address] Nurse Practitioner Family Medicine 09/19/23 INFORMATION SOURCE (unrecogn ized section and content) DATE CREATED AUTHOR 10/30/2021 [facility] DATE CREATED AUTHOR AUTHOR'S ORGANIZ ATION 05/30/2022 [facility] DATE CREATED AUTHOR AUTHOR'S ORGANIZ ATION 11/15/2022 [facility] DATE CREATED AUTHOR AUTHOR'S ORGANIZ ATION 01/06/2023 [facility] DATE CREATED AUTHOR AUTHOR'S ORGANIZ ATION 12/24/2023 [facility] DATE CREATED AUTHOR AUTHOR'S ORGANIZ ATION 08/31/2024 [facility] DATE CREATED AUTHOR AUTHOR'S ORGANIZ ATION 10/16/2024 [facility] DATE CREATED AUTHOR AUTHOR'S ORGANIZ ATION 10/19/2024 [facility] FOR RECORDS PERTAINING TO PATIENTS WHO ARE OR HAVE BEEN ENROLLED IN A CHEMICAL DEPENDENCY/SUBSTANCEABUSE PROGRAM, SOME INFORMATION MAY BE OMITTED. This clinical summary was aggregated from multiple sources. Caution should be exercised in using it in the provision of clinical care. This summary normalizes information from multiple sources, and as a consequence, information in this document may materially change the coding, format and clinical context of patient data. In addition, data may be omitted in some cases. CLINICAL DECISIONS SHOULD BE BASED ON THE PRIMARY CLINICAL RECORDS. [email or web address] provides no warranty or guarantee of the accuracy or completeness of information in this document.
[2024-12-18 16:13] LABS: Alanine Aminotransferase 28 U/L (14-59); Albumin Globulin Ratio 0.9; Albumin Level 3.5 g/dL (3.4-5.0); Alkaline Phosphatase 101 U/L (46-116); Anion Gap 11.8; Aspartate Amino Transferase 31 U/L (15-37); BUN Creatinine Ratio 5.7; Bilirubin Total 0.4 mg/dL (0.2-1.0); Calcium 10.3 mg/dL (8.5-10.1); Carbon Dioxide 25.9 mmol/L (21.0-32.0); Chloride 99 mmol/L (98-107); Chol HDL Ratio 3.9; Cholesterol 236 mg/dL (<=200); Estimated GFR (African America >60 (>=60 mL/min/1.73m^2); Estimated GFR (Non-African Ame 54 (>=60 mL/min/1.73m^2); Globulin 3.7 g/dL; Glucose 105 mg/dL (74-106); HDL Cholesterol 60 mg/dL (40-60); Magnesium 1.6 mg/dL (1.8-2.4); Potassium 3.7 mmol/L (3.5-5.1); Sodium 133 mmol/L (136-145); Thyroid Stimulating Hormone 1.851 uIU/mL (0.358-3.740); Total Protein 7.2 g/dL (6.4-8.2); Triglycerides 139 mg/dL (<=150); VLDL CHOLESTEROL 27.8 mg/dL
[2024-12-18 16:30] LABS: Eosinophils Absolute Manual 0.13 10^3/uL (0.00-0.70); Lymphocytes Absolute Manual 3.12 10^3/uL (1.20-3.80); Segmented Neut Absolute Manual 3.53 10^3/uL (1.4-6.5)
[2024-12-18 16:36] LABS: Bilirubin Urine SMALL (NEGATIVE); Blood Urine NEGATIVE (NEGATIVE); Clarity Urine SL CLOUDY (CLEAR); Color Urine YELLOW (YELLOW); Glucose Urine UA NEGATIVE (NEGATIVE); Ketones Urine TRACE mg/dL (NEGATIVE); Leukocyte Esterase Urine MODERATE (NEGATIVE); Nitrite Urine NEGATIVE (NEGATIVE); Protein Urine TRACE mg/dL (NEG/TRACE)
[2024-12-18 16:38] LABS: Urine Microscopic Indicated YES
[2024-12-18 16:49] LABS: Bacteria Urine MODERATE #/HPF (NONE SEEN); Cast Seen? NONE SEEN #/LPF (NONE SEEN); Crystals Seen? None Seen #/HPF (None Seen); Mucus Urine MODERATE (NONE SEEN); RBC Urine 0-2 #/HPF (0-2); Squamous Epithelial Cell Urine MANY #/LPF (NONE/RARE); Urine Culture Indicated YES-FRMC
[2024-12-18 17:19] LABS: Free T4 0.96 ng/dL (0.76-1.46)
== END 2024-12-18 15:28 | disposition home or self-care (01) ==
LOC: LAB 15:30
PROVIDERS: PCP Nurse Practitioner; Visit Provider Nurse Practitioner
DX: E78.2 Mixed hyperlipidemia (principal); N18.31 Chronic kidney disease, stage 3a; J44.9 Chronic obstructive pulmonary disease, unspecified; K21.9 Gastro-esophageal reflux disease without esophagitis; F17.210 Nicotine dependence, cigarettes, uncomplicated; M81.0 Age-related osteoporosis without current pathological fracture; E55.9 Vitamin D deficiency, unspecified; E03.9 Hypothyroidism, unspecified
CPT/HCPCS: 36415; 80053; 80061; 81001; 82306; 83735; 84439; 84443; 85007; 85027; 87086; 87088; 87186

== ENCOUNTER 2025-01-01 12:39 | Outpatient (OUT) | payer MEDICAID, SELFPAY ==
--- OUTSIDE RECORDS SUMMARY | 2024-12-26 20:40 | XMS_ITS | Continuity of Care Document ---
Author Organization [facility] Address [address] [place] [address] Phone Care Team Providers Care Pharm Tech Name Role Phone Minda Yeboah Attending Provider Care Teams Patient Care Team Team Status: [...] Address [address] [facility] [address] Contact Info. Home Phone: Payer Policy Id Coverage Id Subscriber's Name Subscriber Id Effective Date Expiration Date Medicaid [id number] Encounters Encounter Location(s) Arrival/Admit Date Discharge/Depart Date Provider(s) Departed Referred [facility] December 18, 2024 3:32pm December 18, [...]
--- OUTSIDE RECORDS SUMMARY | 2025-01-01 12:41 | XMS_ITS | Encounter Summary ---
Author Organization [facility] Address [id number] [address] [place] [address] Care Team Providers Care Program Strategist Name Role Phone Unavailable Primary Care Provider Unavailabl e Encounter Details Date Type Department Care Team (Late st Contact Info) Description 10/21/2024 Telephone [facility] Department of [facility] [address] [place] [address] Codie Hopkins CMA Social History Tobacco Use [...] Office Visit [facility] of [facility] [address] [address] Cristian Szymanski MD [address] [address] documented as of this encounter Visit Diagnoses Not on filedocumented in this encounter
--- OUTSIDE RECORDS SUMMARY | 2025-01-01 12:41 | XMS_ITS | Encounter Summary ---
[id number] [address] [place] [address] Care Team Providers Care General Machine Operator Name Role Phone Unavailable Primary Care Provider Unavailabl e Encounter Details Date Type Department Care Team (Late st Contact Info) Description 10/24/2024 Telephone [facility] Department of [facility] [address] [place] [phone] Tequila Barry CMA Social History Tobacco Use [...] Office Visit [facility] Department of [facility] [address] [phone] Cristian Szymanski MD [address] [address] documented as of this encounter Visit Diagnoses Not on filedocumented in this encounter
--- OUTSIDE RECORDS SUMMARY | 2025-01-01 12:41 | XMS_ITS | Encounter Summary ---
Author Organization [facility] Address [id number] [address] [place] [address] Care Team Providers Care Groundskeeper Name Role Phone Unavailable Primary Care Provider Unavailabl e Encounter Details Date Type Department Care Team (Late st Contact Info) Description 06/26/2024 Telephone [facility] [address] [address] Tequila Barry CMA Social History [...] Office Visit [facility] Department of [facility] [address] [address] Cristian Szymanski MD [address] [address] documented as of this encounter Visit Diagnoses Diagnosis DDD (degenerative disc disease), cervical Degeneration of cervical intervertebral disc documented in this encounter
--- OUTSIDE RECORDS SUMMARY | 2025-01-01 12:41 | XMS_ITS | Encounter Summary ---
Author Organization [facility] Address [address] [place] [address] Care Team Providers Care Electrician Radio Name Role Phone Tony Mathur MD Primary Care Provider [phone] MAINTENANCE SUPERVISOR Unavailable [phone] Tony Mathur MD Primary Care Provider [phone] MAINTENANCE SUPERVISOR Unavailable [phone] Encounter Details Date Type Department Care [...] Office Visit [facility] [address] [place] [address] Minda Yeboah NP [address] [place] [address] documented as of this encounter Procedures Procedure Name Priority Date/Time Associated Diagnosis Comments MM TOMOSYNTHESIS SCREENING BI 08/17/2023 3:41 PM EST documented in this encounter Results * MM TOMOSYNTHESIS SCREENING BI (08/17/2023 3:41 PM EST) Anatomical Region Laterality Modality Other 08/17/2023 3:41 PM EST Narrative 08/17/2023 3:42 [place] [address] Mammography Report Signed Patient: BENTON CARRERO MR#: [id number] : 1965 Acct:[id number] Age/Sex: 57 / F ADM Date: 08/17/23 Loc: INF Attending Dr: Minda Yeboah NP Ordering Physician: Minda Yeboah NP Results: Date of Service: 08/17/23 Follow Up: Procedure(s): MM tomosynthesis screening BI Accession Number(s): [id number] cc: Minda Yeboah NP Patient Name: BENTON CARRERO MR#: [id number] : 1965 Exam Date: 08/17/2023 Ordering Doctor: [...] uterine cancer at age 22. LOCATION: [facility] BREAST COMPOSITION: Heterogeneously dense,which may obscure [...] Signed By: 08/17/23 1542 DD/ 154 TD/TT: Advisory Services Associate: Procedure Note Radiology, Radiologist, - 08/17/2023 [place] [address] Mammography Report Signed Patient: BENTON CARRERO MMR#: [id number] : 1965Acct:[id number] Age/Sex: 57 / FADM Date: 08/17/23 Loc: INF Attending Dr: Minda Yeboah NP Ordering Physician: Minda Yeboah NPResults: Date of Service: 08/17/23Follow Up: Procedure(s): MM tomosynthesis screening BI Accession Number(s): [id number] cc: Minda Yeboah NP Patient Name: BENTON CARRERO MR#: [id number] : 1965 Exam Date: 08/17/2023 Ordering Doctor: CHERYL Yeboah PRACTICE ADMINISTRATOR RADIOLOGY REPORT PROCEDURE: MM TOMOSYNTHESIS SCREENING BI COMPARISON: MG MAMM CLARIBEL DIAG W CAD DIG, 01/15/2016. INDICATIONS: Screening Calculator Name NCI Breast Cancer Risk Assessment Tool 5 Year Breast Cancer Risk 1.00% Lifetime Breast Cancer Risk 6.70% Personal Breast Cancer No Personal Ovarian Cancer No Treatments None Family Cancers Mother with uterine cancer at age 20. LOCATION: [facility] BREAST COMPOSITION: Heterogeneously dense,which may obscure [...] M.D. Signed By:08/17/23 1542 DD/ 154 TD/TT: Advisory Services Associate: Minda Yeboah NP [facility] Final Result documented in this encounter Visit Diagnoses Not on filedocumented in this encounter Care Teams Electrician Radio Relationship Specialty Start Date End Date Tony [...]
--- OUTSIDE RECORDS SUMMARY | 2025-01-01 12:41 | XMS_ITS | Encounter Summary ---
Author Organization [facility] Address [address] [place] [address] Care Team Providers Care Stenocaptioner Name Role Phone Minda Yeboah NP Unavailable [phone] Tony Mathur MD Primary Care Provider [phone] Minda Yeboah NP Unavailable [phone] Encounter Details Date Type Department Care Team (Late Contact Info) Description 12/19/2024 Orders Only [facility] [address] [place] [address] Minda Yeboah NP [address] [place] [address] Hypercalcemia (Primary Dx) Social History Tobacco Use Types [...] 01/13/2025 1:00 PM EDT Office Visit [facility] [address] [place] [address] Minda Yeboah NP [address] [place] [address] Scheduled Orders Name Type Priority Associated Diagnoses Orde r Schedule Basic metabolic panel Lab Routine Hypercalcemia Expected: 01/19/2025 (Approximate), Expires: 12/19/2025 PTH, intact Lab Routine Hypercalcemia Expected: 01/02/2025 (Approximate), Expires: 12/19/2025 documented as of this encounter Visit Diagnoses Diagnosis Hypercalcemia- Primary documented in this encounter Care Teams Stenocaptioner Relationship Specialty Start Date End Date Tony Mathur MD [address] [place] [address] PCP - General Family Medicine 09/19/23 Minda Yeboah NP [address] [place] [address] Referring Physician Nurse Practitioner 02/10/23 Minda Yeboah NP [address] [place] [address] Nurse Practitioner Family Medicine 09/19/23 documented as of this encounter
--- OUTSIDE RECORDS SUMMARY | 2025-01-01 12:41 | XMS_ITS | Encounter Summary ---
Author Organization [facility] Address [address] [facility] [place] [address] Care Team Providers Care Literature Professor Name Role Phone Tony Mathur MD Primary Care Provider [phone] Minda Yeboah ASBESTOS CLOTH INSPECTOR Unavailable [phone] Tony Mathur MD Primary Care Provider [phone] Minda Yeboah ASBESTOS CLOTH INSPECTOR Unavailable [phone] Reason for Visit * Reason Comments Med Refill Encounter Details Date Type Department Care Team (Late Contact Info) Description 07/27/2023 Refill [facility] [address] [place] [address] Minda Yeboah NP [address] [place] [address] Mixed hyperlipidemia (CMS/HCC) (Primary Dx); Elevated serum [...] 01/13/2025 1:00 PM EDT [facility] [address] [place] [address] Minda Yeboah NP [address] [place] [address] documented as of this encounter Visit Diagnoses Diagnosis Mixed hyperlipidemia (CMS/HCC)- Primary Mixed hyperlipidemia Elevated serum creatinine Other nonspecific findings on examination of blood documented in this encounter Care Teams Literature Professor Relationship Specialty Start Date End Date Tony Mathur MD PCP - General Family Medicine 02/10/23 09/18/23 Tony Mathur MD [address] [place] [address] PCP - General Family Medicine 09/19/23 Minda Yeboah NP [address] [place] [address] Referring Physician Nurse Practitioner 02/10/23 Minda Yeboah NP [address] [place] [address] Nurse Practitioner Family Medicine 09/19/23 documented as of this encounter
--- OUTSIDE RECORDS SUMMARY | 2025-01-01 12:41 | XMS_ITS | Encounter Summary ---
Author Organization [facility] Address [address] [facility] [place] [address] Care Team Providers Care Church History Teacher Name Role Phone Tony Mathur MD Primary Care Provider [phone] Minda Yeboah GASFITTER Unavailable [phone] Tony Mathur MD Primary Care Provider [phone] Minda Yeboah GASFITTER Unavailable [phone] Encounter Details Date Type Department Care Team (Late st Contact Info) Description 08/21/2023 Orders Only [facility] [address] [place] [address] Minda Yeboah NP [address] [place] [phone] Social History Tobacco Use Types Packs/Day Years [...] 01/13/2025 1:00 PM EDT Office Visit [facility] [address] [place] [phone] Minda Yeboah NP [address] [place] [phone] documented as of this encounter Procedures Procedure Name Priority Date/Time Associated Diagnosis Comments MAMM BILATERAL DIAG W/CAD (D) Routine 08/17/2023 10:50 AM EST documented in this encounter Results * MAMM BILATERAL DIAG W/CAD (D) (08/17/2023 10:50 AM EST) Anatomical Region Laterality Modality Radiographic Dawn ging Minda Yeboah GASFITTER IMG XR PROCEDURES Final Result documented in this encounter Visit Diagnoses Not on filedocumented in this encounter Care Teams Church History Teacher Relationship Specialty Start Date End Date Tony Mathur MD PCP - General Family Medicine 02/10/23 09/18/23 Tony Mathur MD [address] [place] [address] PCP - General Family Medicine 09/19/23 Minda Yeboah NP [address] [place] [address] Referring Physician Nurse Practitioner 02/10/23 Minda Yeboah NP [address] [place] [address] Nurse Practitioner Family Medicine 09/19/23 documented as of this encounter
--- OUTSIDE RECORDS SUMMARY | 2025-01-01 12:41 | XMS_ITS | Encounter Summary ---
Author Organization [facility] Address [address] [facility] [place] [address] Care Team Providers Care Store Stock Help Name Role Phone Tony Mathur MD Primary Care Provider [phone] Minda Yeboah SHAFT REPAIRER Unavailable [phone] Tony Mathur MD Primary Care Provider [phone] Minda Yeboah SHAFT REPAIRER Unavailable [phone] Encounter Details Date Type Department Care Team (Late st Contact Info) Description 07/19/2023 Abstract [facility] [address] [place] [phone] Minda Yeboah NP [address] [place] [address] Social History Tobacco Use Types Packs/Day Years [...] 1:00 PM EDT Office Visit [facility] [address] [place] [phone] Minda Yeboah NP [address] [place] [address] documented as of this encounter Visit Diagnoses Not on filedocumented in this encounter Care Teams Store Stock Help Relationship Specialty Start Date End Date Tony Mathur MD PCP - General Family Medicine 02/10/23 09/18/23 Tony Mathur MD [address] [place] [address] PCP - General Family Medicine 09/19/23 Minda Yeboah NP [address] [place] [address] Referring Physician Nurse Practitioner 02/10/23 Minda Yeboah NP [address] [place] [address] Nurse Practitioner Family Medicine 09/19/23 documented as of this encounter
--- OUTSIDE RECORDS SUMMARY | 2025-01-01 12:41 | XMS_ITS | Encounter Summary ---
Author Organization [facility] Address [address] [facility] [place] [address] Care Team Providers Care Pet Handler Name Role Phone Minda Yeboah NP Unavailable [phone] Tony Mathur MD Primary Care Provider [phone] Minda Yeboah NP Unavailable [phone] Encounter Details Date Type Department Care Team (Late st Contact Info) Description 12/18/2024 Clinisync Result Encounter [facility] External Department Unsolicited Minda Yeboah NP [address] [place] [address] Social History Tobacco Use Types [...] Visit [facility] [address] [place] [phone] Minda Yeboah NP [address] [place] [address] documented as of this encounter Procedures Procedure Name Priority Date/Time Associated Diagnosis Comments TBH VITAMIN D 25 [place] Routine 12/18/2024 3 :42 PM EDT MHPT DIFFERENTIAL Routine 12/18/2024 3:4 2 PM EDT [facility] CMP (CMP) (FOR REMOTE [facility] USE) Routine 12/18/2024 3:42 PM EDT ALL THYROXINE (T4) FREE Routine 12/18/2024 3:42 PM EDT ALL THYROID STIM HORMONE Routine 12/18/2024 3:42 PM EDT ALL MAGNESIUM Routine 12/18/2024 3:42 PM EDT ALL LIPID PROFILE (FASTING) Routine 12/18/2024 3:42 PM EDT ALL CBC WITH AUTO DIFF Routine 12/18/2024 3:42 PM EDT URINE C[facility]URE - [facility] Routine 12/18/2024 3:32 PM EDT TBH URINE MICROSCOPIC ONLY Routine 12/18/2024 3:32 PM EDT TBH UA (CLEAN/CATCH) MICROSCOPIC IF INDICATE Routine 12/18/2024 3:32 PM EDT documented in this encounter Results * ALL THYROXINE (T4) FREE (12/18/2024 3:42 PM EDT) FREE T4 0.96 0.76 - 1.46 ng/dL TB 12/18/2024 3:42 PM EDT 12/18/2024 3:43 PM EDT Narrative CLINISYNC - 12/18/2024 5:26 PM EDT us Minda Yeboah NP CLINISYNC Final Result [facility] * TBH VITAMIN D 25 [place] (12/18/2024 3:42 PM EDT) VITAMIN D 41.2 ng/mL TB Comment: <20 ng/mL Vit D deficient 20-<30 ng/mL Vit D insufficient 30-100 ng/mL Vit D sufficient >100 ng/mL Potential Toxicity 12/18/2024 3:42 PM EDT 12/18/2024 3:43 PM EDT Narrative CLINISYNC - 12/18/2024 5:26 PM EDT Minda Yeboah NP CLINISYIN Final Result Performing Organization Address [facility] de Phone Number [facility] * ALL THYROID STIM HORMONE (12/18/2024 3:42 PM EDT) Pathologist [facility] THYROID STIMULATING HORMONE 1.851 0.358 - 3.740 uIU/mL [facility] 12/18/2024 3:42 PM EDT 12/18/2024 3:43 PM EDT Narrative CLINISYNC - 12/18/2024 4:39 PM EDT Minda Yeboah NP CLINISYIN Final Result Performing Organization Address [facility] de Phone Number [facility] * (ABNORMAL) ALL LIPID PROFILE (FASTING) (12/18/2024 3:42 PM EDT) TRIGLYCERIDES 139 <=150 mg/dL TB CHOLESTEROL 236(H) <=200 mg/dL TB HDL CHOLESTEROL 60 40 - 60 mg/dL TB Comment: > or =60 mg/dl - LOW CARDIOVASCULAR RISK <40 mg/dl - HIGH CARDIOVASCULAR RISK LDL CHOLESTEROL CALCULATED 149.0 mg/dL TB Comment: <100 mg/dl OPTIMAL 100-129 mg/dl NEAR OR ABOVE OPTIMAL 130-159 mg/dl BORDERLINE HIGH 160-189 mg/dl HIGH >190 mg/dl VERY HIGH VLDL CHOLESTEROL 27.8 mg/dL TB CHOL HDL RATIO 3.9 TB Comment: 3.3 - 4.4 LOW RISK 4.4 - 7.1 AVERAGE RISK 7.1 - 11.0 MODERATE RISK >11.0 HIGH RISK 12/18/2024 3:42 PM EDT 12/18/2024 3:43 PM EDT Narrative CLINISYNC - 12/18/2024 4:39 PM EDT Minda Edilia WAREHOUSE INCENTIVE SELECTOR CLINISYNC Final Result [facility]NC [facility] * (ABNORMAL) ALL MAGNESIUM (12/18/2024 3:42 PM EDT) MAGNESIUM 1.6(L) 1.8 - 2.4 mg/dL TBH 12/18/2024 3:42 PM EDT 12/18/2024 3:43 PM EDT Narrative CLINISYNC - 12/18/2024 4:39 PM EDT Minda Yeboah NP CLINISYNC Final Result Performing Organization Address [facility] Co de Phone Number CLINISYNC [facility] * (ABNORMAL) [facility] CMP (CMP) (FOR REMOTE [facility] USE) (12/18/2024 3:42 PM EDT) SODIUM 133(L) 136 - 145 mmol/L TBH POTASSIUM 3.7 3.5 - 5.1 mmol/L TBH CHLORIDE 99 98 - 107 mmol/L TBH CARBON DIOXIDE 25.9 21.0 - 32.0 mmol/L TBH ANION GAP 11.8 TBH GLUCOSE 105 74 - 106 mg/dL TBH BLOOD UREA NITROGEN 6.0(L) 7.0 - 18.0 mg/dL TBH CREATININE 1.05(H) 0.55 - 1.02 mg/dL TBH TBH EGFR-AF COMORAN >60 >=60 mL/min/1. 73m 2 TBH TBH EGFR-NON AF COMORAN 54(L) >=60 mL/min/1. 73m 2 TBH BUN CREATININE RATIO 5.7 TBH CALCIUM 10.3(H) 8.5 - 10.1 mg/dL TBH BILIRUBIN TOTAL 0.4 0.2 - 1.0 mg/dL TBH ASPARTATE AMINO TRANSFERASE 31 15 - 37 U/L TBH ALANINE AMINOTRANSFERASE 28 14 - 59 U/L TBH ALKALINE PHOSPHATASE 101 46 - 116 U/L TBH TOTAL PROTEIN 7.2 6.4 - 8.2 g/dL TBH ALBUMIN LEVEL 3.5 3.4 - 5.0 g/dL TBH GLOBULIN 3.7 g/dL TBH ALBUMIN GLOBULIN RATIO 0.9 TBH 12/18/2024 3:42 PM EDT 12/18/2024 3:43 PM EDT Narrative CLINISYNC - 12/18/2024 4:39 PM EDT Minda Yeboah NP CLINISYNC Final Result Performing Organization Address [facility] Co de Phone Number CLINISYNC [facility] * (ABNORMAL) MHPT DIFFERENTIAL (12/18/2024 3:42 PM EDT) SEGMENTED NEUTROPHILS % MANUAL 52.0 43.0 - 75.0 TBH LYMPHOCYTES PERCENT MANUAL 46.0 20.5 - 60.0 % TBH MONOCYTES PERCENT MANUAL 0.0(L) 1.7 - 12.0 % TBH EOSINOPHILS PERCENT MANUAL 2.0 0.9 - 7.0 % TBH BASOPHILS PERCENT MANUAL 0.0(L) 0.2 - 2.0 % TBH SEGMENTED NEUT ABSOLUTE MANUAL 3.53 1.4 - 6.5 10 3/uL TBH LYMPHOCYTES ABSOLUTE MANUAL 3.12 1.20 - 3.80 10 3/uL TBH MONOCYTES ABSOLUTE MANUAL 0.00(L) 0.30 - 0.80 10 3/uL TBH EOSINOPHILS ABSOLUTE MANUAL 0.13 0.00 - 0.70 10 3/uL TBH BASOPHILS ABS MANUAL 0.00 0.00 - 0.10 10 3/uL TBH 12/18/2024 3:42 PM EDT 12/18/2024 3:43 PM EDT Narrative CLINISYNC - 12/18/2024 4:30 PM EDT Minda Yeboah NP CLINISYNC Final Result Performing Organization Address City/[facility]/ZIP Co de Phone Number CLINISYNC [facility] * (ABNORMAL) ALL CBC WITH AUTO DIFF (12/18/2024 3:42 PM EDT) [facility] WBC 6.8 4.0 - 11.0 10 3/uL TB TB RBC 4.05(L) 4.20 - 5.40 10 6/uL TB TB HGB 12.2 12.0 - 16.0 g/dL [facility] TB HCT 36.7 36.0 - 48.0 % TB TB MCV 90.6 81.0 - 99.0 fL TB TB MCH 30.1 26.7 - 34.0 pg TB TB MCHC 33.2 29.9 - 35.2 g/dL TB TB RDW 15.3(H) 11.0 - 15.0 % TB TB PLT 351 150 - 450 10 3/uL TB TB MPV 9.2(L) 9.5 - 13.5 fL [facility] 12/18/2024 3:42 PM EDT 12/18/2024 3:43 PM EDT Narrative CLINISYNC - 12/18/2024 4:30 PM EDT us Minda Yeboah NP CLINISYNC Final Result [facility] * (ABNORMAL) URINE CULTURE - [facility] (12/18/2024 3:32 PM EDT) Pathologist [facility] URINE CULTURE - [facility] Urine Culture - [facility] Testing performed at [facility] URINE CULTURE - [facility] [address] [place] [address] [facility]INE CULTURE - [facility] O:ESCCOL Isolated [facility] URINE CULTURE - [facility] Urine Culture - FR Organism Comments [facility] URINE CULTURE - FR 75,000 CFU/ML [facility] URINE CULTURE - [facility] Organism: 1.1 Antibiotic Interpretation CARLOS Status [facility] URINE CULTURE - FR Amikacin S F(S) [facility] URINE CULTURE - FR Amoxicillin/Clavul anate S F(S) [facility] URINE CULTURE - FR Ampicillin S F(S) [facility] URINE CULTURE - [facility] Aztreonam S F(S) [facility] URINE CULTURE - [facility] Ceftazidime S F(S) [facility] URINE CULTURE - [facility] Ceftazidime/Avibac florence S F(S) [facility] URINE CULTURE - [facility] Ceftolozane/Tazoba ctam S F(S) [facility] URINE CULTURE - [facility] Ciprofloxacin S F(S) [facility] URINE CULTURE - [facility] Ertapenem S F(S) [facility] URINE CULTURE - [facility] Gentamicin S F(S) [facility] URINE CULTURE - [facility] Levofloxacin S F(S) [facility] URINE CULTURE - [facility] Meropenem S F(S) [facility] URINE CULTURE - [facility] Meropenem/Vaborbac florence S F(S) [facility] URINE CULTURE - [facility] Nitrofurantoin S F(S) [facility] URINE CULTURE - [facility] Tetracycline S F(S) [facility] URINE CULTURE - [facility] Tigecycline S F(S) [facility] URINE CULTURE - [facility] Tobramycin S F(S) [facility] URINE CULTURE - [facility] Ampicillin/Sulbact am S F(S) [facility] URINE CULTURE - [facility] Cefazolin S F(S) [facility] URINE CULTURE - [facility] Cefepime S F(S) [facility] URINE CULTURE - [facility] Ceftriaxone S F(S) [facility] URINE CULTURE - [facility] Cefuroxime S F(S) [facility] URINE CULTURE - [facility] Piperacillin/Tazob actam S F(S) [facility] URINE CULTURE - [facility] Trimethoprim/Sulfa S F(S) [facility] 12/18/2024 3:32 PM EDT 12/18/2024 3:43 PM EDT Narrative CLINISYNC - 12/24/2024 2:31 PM EDT us Minda Yeboah WAREHOUSE INCENTIVE SELECTOR LAB BLOOD ORDERABLES Final Resu lt [facility] * (ABNORMAL) TB URINE MICROSCOPIC ONLY (12/18/2024 3:32 PM EDT) Pathologist [facility] TB WBC 10-20(A) NONE SEEN #/HPF TBH TBH RBC 0-2 0 - 2 #/HPF TBH BACTERIA URINE MODERATE(A ) NONE SEEN #/HPF TBH MUCUS URINE MODERATE(A ) NONE SEEN TBH SQUAMOUS EPITHELIAL CELL URINE MANY(A) NONE/RARE #/LPF TBH CRYSTALS SEEN? None Seen None Seen #/HPF TBH CAST SEEN? NONE SEEN NONE SEEN #/LPF TBH URINE CULTURE INDICATED YES-[facility] 12/18/2024 3:32 PM EDT 12/18/2024 3:43 PM EDT Narrative CLINISYNC - 12/18/2024 4:49 PM EDT us Minda Yeboah WAREHOUSE INCENTIVE SELECTOR CLINISYNC Final Result [facility]IS[facility]NC [facility] * (ABNORMAL) TBH UA (CLEAN/CATCH) MICROSCOPIC IF INDICATE (12/18/2024 3:32 PM EDT) COLOR URINE YELLOW YELLOW TBH CLARITY URINE SL CLOUDY CLEAR TBH SPECIFIC GRAVITY URINE 1.010 1.005 - 1.025 TBH PH URINE 7.0 5.0 - 9.0 TBH PROTEIN URINE TRACE NEG/TRACE mg/dL TBH GLUCOSE URINE UA NEGATIVE NEGATIVE mg/dL TBH BILIRUBIN URINE SMALL(A) NEGATIVE TBH KETONES URINE TRACE(A) NEGATIVE mg/dL TBH BLOOD URINE NEGATIVE NEGATIVE TBH NITRITE URINE NEGATIVE NEGATIVE TBH UROBILINOGEN URINE 1.0 0.2 - 1.0 EU/dL TBH LEUKOCYTE ESTERASE URINE MODERATE(A) NEGATIVE TBH URINE MICROSCOPIC INDICATED YES TBH 12/18/2024 3:32 PM EDT 12/18/2024 3:43 PM EDT Narrative CLINISYNC - 12/18/2024 4:49 PM EDT us Minda Yeboah NP CLINISYNC Final Result Performing Organization Address City/[facility]/ZIP Co de Phone Number CLINISYNC TB[facility] documented in this encounter Visit Diagnoses Not on filedocumented in this encounter Care Teams Pet Handler Relationship Specialty Start Date End Date Tony Mathur MD [address] [place] [phone] PCP - General Family Medicine 09/19/23 Minda Yeboah NP [address] [place] [address] Referring Physician Nurse Practitioner 02/10/23 Minda Yeboah NP [address] [place] [address] Nurse Practitioner Family Medicine 09/19/23 documented as of this encounter
--- OUTSIDE RECORDS SUMMARY | 2025-01-01 12:41 | XMS_ITS | Encounter Summary ---
Author Organization [facility] Address [address] [place] [address] Care Team Providers Care Appliance Service Representative Name Role Phone Minda Yeboah MERINGUER Unavailable [phone] Tony Mathur MD Primary Care Provider [phone] Minda Yeboah MERINGUER Unavailable [phone] Encounter Details Date Type Department Care Team (Late st Contact Info) Description 12/19/2024 [facility]phone [facility] [address] [place] [address] Minda Yeboah MERINGUER [address] [place] [address] Social History Tobacco Use Types Packs/Day Years [...] encounter Miscellaneous Notes * Telephone Encounter - SHARON QUIGLEY - 12/19/2024 10:04 AM EDT Text Hotbed Transfer Operator Hi, this is Sydney. I forgot when I was in seeing Minda. I need refills on all my medication. Thank you, bye. documented in this encounter Plan of Treatment Upcoming Encounters Date Type Department Care Team (Late st Contact Info) Description 01/13/2025 1:00 PM EDT Office Visit [facility] [address] [place] [address] Minda Yeboah NP [address] [place] [address] documented as of this encounter Visit Diagnoses Not on filedocumented in this encounter Care Teams Appliance Service Representative Relationship Specialty Start Date End Date Tony Mathur MD [address] [place] [phone] PCP - General Family Medicine 09/19/23 Minda Yeboah NP [address] [place] [address] Referring Physician Nurse Practitioner 02/10/23 Minda Yeboah NP [address] [place] [address] Nurse Practitioner Family Medicine 09/19/23 documented as of this encounter
--- OUTSIDE RECORDS SUMMARY | 2025-01-01 12:41 | XMS_ITS | Clinical Summary ---
Author Organization [facility] [facility] tem Address [id number] [address] [place] [address] Care Team Providers Care Clubhouse Manager Name Role Phone Unavailable Primary Care Provider [...] 10/24/2024 Telephone [facility] Department of [facility] [address] [address] Tequila Barry [facility] 10/21/2024 Telephone [facility] Department of [facility] [address] [address] Codie Hopkins [facility] 10/17/2024 12:30 PM EDT Office Visit [facility] Department of [facility] [address] [address] Cristian Szymanski MD Undifferentiated connective tissue disease [...] Office Visit [facility] [address] [address] Cristian Szymanski MD [address] [facility] [address] [place] [address] Health Maintenance Due Date Last Done Comments Depression Screening 1979 Tobacco Screening 1977 Adult BMI Follow Up Plan 11/01/1985 DTaP,Tdap and Td Vaccines (1 - Tdap) 11/01/1986 Pap Smear 11/01/1988 Zoster (Shingles) Vaccine (1 of 2) 11/01/2017 Influenza Vaccine 03/31/2025 03/24/2015 Adult BMI Screening 10/17/2025 10/17/2024 Medical Devices Not on file Insurance [facility] MEDICAID
--- OUTSIDE RECORDS SUMMARY | 2025-01-01 12:41 | XMS_ITS | Patient Health Record ---
Author Organization [facility] [place] Address [address] [place] [address] Care Team Providers Care Remote Sensing Research Scientist Name Role Phone Minda Yeboah CNP Primary [...] Problem Status W/U Status Risk Notes Problem 456041761 Age-related osteoporosis without current pathological fracture (M81.0) Active confirmed Problem 941733251 Pain in left ankle and joints of left foot (M25.572) Active confirmed Problem 277743640 Age-related osteoporosis with current pathological fracture, unspecified site, initial encounter for fracture (M80.00XA) Active confirmed Problem 03434079 Age-related osteoporosis with current pathological fracture, unspecified site, 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) Active confirmed Problem 32058393 Nondisplaced fracture of lateral malleolus of left fibula, subsequent encounter for closed fracture with delayed healing (S82.65XG) Active confirmed Problem 1950869 Nondisplaced fracture of cuboid bone of left foot, 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) Active confirmed Problem 36154374 Displaced fracture of second metatarsal bone, left foot, 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) Active confirmed Plan Of Treatment No Information Insurance Providers Payer Name Payer Address Payer Phone Subscriber Number Group Number Insured Name Patient Relationship to Insured Coverage Start Date Coverage End Date [employer] [place] [employer] [address] [address] [place] [address] [id number] Tanja Carrero Self - patient is the insured 3 Medical (General) History Medical History History ICD Code Dislocation of tarsometatarsal joint of left foot, subsequent encounter S93.325D Closed fracture of left ankle with routi ne healing S82.892D Ankle pain, left M25.572 Current nicotine use Z72.0 osteoporosis rheumatoid arthritis oste
--- OUTSIDE RECORDS SUMMARY | 2025-01-01 12:41 | XMS_ITS | Encounter Summary ---
Author Organization [facility] Address [address] [facility] [place] [address] Care Team Providers Care Finisher Machine Name Role Phone Minda Yeboah NP Unavailable [phone] Tony Mathur MD Primary Care Provider [phone] Minda Yeboah NP Unavailable [phone] Encounter Details Date Type Department Care Team (Late Contact Info) Description 09/28/2023 Orders Only [facility] [address] [place] [address] Minda Yeboah NP [address] [place] [phone] Social History Tobacco Use Types Packs/Day Years [...] 01/13/2025 1:00 PM EDT Office Visit [facility] [address] [place] [phone] Minda Yeboah NP [address] [place] [address] documented as of this encounter Procedures Procedure Name Priority Date/Time Associated Diagnosis Comments LAB COLOGUARD COLON CANCER SCREEN Routine 09/21/2023 6:48 PM EST documented in this encounter Results * Cologuard?? colon cancer screening (09/21/2023 6:48 PM EST) Stool us Minda Yeboah NP LAB MOLECULAR DIAGNOSTICS ORDER SILVA Final Result documented in this encounter Visit Diagnoses Not on filedocumented in this encounter Care Teams Finisher Machine Relationship Specialty Start Date End Date Tony Mathur MD [address] [place] [phone] PCP - General Family Medicine 09/19/23 Minda Yeboah NP [address] [place] [address] Referring Physician Nurse Practitioner 02/10/23 Minda Yeboah NP [address] [place] [address] Nurse Practitioner Family Medicine 09/19/23 documented as of this encounter
--- OUTSIDE RECORDS SUMMARY | 2025-01-01 12:41 | XMS_ITS | Encounter Summary ---
Author Organization [facility] tem Address [facility][id number] [address] [place] [address] Care Team Providers Care Human Resources Administrator Name Role Phone Unavailable Primary Care Provider Unavailabl e Encounter Details Date Type Department Care Team (Late st Contact Info) Description 12/22/2023 Orders Only [facility] External Film Storage [facility] [place] [address] Transcribe, Orders Support User Pain [...] Office Visit [facility] Department of [facility] [address] [phone] Cristian Szymanski MD [address] [address] documented as of this encounter Results * X-ray spine cervical 4 or 5 views (12/18/2023 3:30 PM EDT) us Scanning Provider External IMG DIAGNOSTIC IMAGIN G ORDERABLES Final Result documented in this encounter Visit Diagnoses Diagnosis Pain- Primary Generalized pain documented in this encounter
--- OUTSIDE RECORDS SUMMARY | 2025-01-01 12:42 | XMS_ITS | Encounter Summary ---
Author Organization [facility] Address [address] [facility] [place] [address] Care Team Providers Care Coating Inspector Name Role Phone Minda Yeboah NP Unavailable [phone] Tony Mathur MD Primary Care Provider [phone] Minda Yeboah NP Unavailable [phone] Encounter Details Date Type Department Care Team (Late Contact Info) Description 12/24/2024 Orders Only [facility] [address] [place] [address] Minda Yeboah NP [address] [place] [phone] Social History Tobacco Use Types Packs/Day Years [...] 01/13/2025 1:00 PM EDT Office Visit [facility] [address] [place] [phone] Minda Yeboah NP [address] [place] [address] documented as of this encounter Procedures Procedure Name Priority Date/Time Associated Diagnosis Comments SCANNED LABS Routine 12/24/2024 3:23 PM EDT SCANNED LABS Routine 12/24/2024 10:19 AM EDT documented in this encounter Results * SCANNED LABS (12/24/2024 3:23 PM EDT) us Minda Yeboah EXCEPTIONAL CHILDREN TEACHER ASSISTANT LAB CHG PERFORMABLES Final Resu lt * SCANNED LABS (12/24/2024 10:19 AM EDT) us Minda Yeboah EXCEPTIONAL CHILDREN TEACHER ASSISTANT LAB CHG PERFORMABLES Final Resu lt documented in this encounter Visit Diagnoses Not on filedocumented in this encounter Care Teams Coating Inspector Relationship Specialty Start Date End Date Tony Mathur MD [address] [place] [address] PCP - General Family Medicine 09/19/23 Minda Yeboah NP [address] [place] [address] Referring Physician Nurse Practitioner 02/10/23 Minda Yeboah NP [address] [place] [address] Nurse Practitioner Family Medicine 09/19/23 documented as of this encounter
--- OUTSIDE RECORDS SUMMARY | 2025-01-01 12:42 | XMS_ITS | Clinical Summary ---
Author Organization [facility] Address [address] [place] [address] Care Team Providers Care Roll Grinder Operator Name Role Phone Minda Yeboah APRN, NP [...] 136 - 145 mmol/L 08/21/2024 12:23 PM [facility] Potassium 4.1 3.7 - 5.3 mmol/L 08/21/2024 12:23 PM [facility] Chloride 99 98 - 107 mmol/L 08/21/2024 12:23 PM [facility] CO2 23 20 - 31 mmol/L 08/21/2024 12:23 PM [facility] Anion Gap 12 9 - 16 mmol/L 08/21/2024 12:23 PM [facility] Glucose 95 74 - 99 mg/dL 08/21/2024 12:23 PM [facility] BUN 13 6 - 20 mg/dL 08/21/2024 12:23 PM [facility] Creatinine 1.2(H) 0.50 - 0.90 mg/dL 08/21/2024 12:23 PM [facility] Est, Glom Filt Rate 54(L) >60 mL/min/1.7 3m2 08/21/2024 12:23 PM [facility] Comment: These results are not [...] 9 - 20 08/21/2024 12:23 PM EST [facility] Calcium 9.9 8.6 - 10.4 mg/dL 08/21/2024 12:23 PM EST [facility] Blood BLOOD SPECIMEN / Unknown 08/21/2024 12:23 PM EST 08/21/2024 12:53 PM EST Patria Davila PA-C CHEMISTRY ORDERABLES Final Result [facility] [address] [place] [address], [facility] [phone] from Last 3 Months or Most Recently Relevant to Health Maintenance Insurance [facility] MEDICAID Advance Directives * Full Code (Latest Code Status on File) Date Activated Date Inactivated Comments 05/24/2022 12:20 PM 05/26/2022 4:23 PM * Full Code Date Activated Date Inactivated Comments 05/24/2022 12:20 PM 05/24/2022 12:20 PM * Full Code Date Activated Date Inactivated Comments 06/14/2021 9:04 PM 06/18/2021 4:14 PM Healthcare Agents on File Name Relationship Healthcare Agent [facility] Communication Juan Carrero Spouse Primary Decision Maker Care Teams Roll Grinder Operator Relationship Specialty Start Date End Date Minda Yeboah, RAILWAY TRACK WORKER - COMPUTER MECHANIC [address] [place] [address] PCP - General Nurse Practitioner 06/18/21
--- OUTSIDE RECORDS SUMMARY | 2025-01-01 12:42 | XMS_ITS | Encounter Summary ---
Author Organization [facility] Address [address] [facility] [place] [address] Care Team Providers Care Crane Man Name Role Phone Minda Yeboah NP Unavailable [phone] Tony Mathur MD Primary Care Provider [phone] Minda Yeboah NP Unavailable [phone] Encounter Details Date Type Department Care Team (Late st Contact Info) Description 08/22/2024 Orders Only [facility] [address] [place] [address] Unallocated, Noms Provider, [address] [place], [place] [id number] Social History Tobacco Use Types Packs/Day Years [...] Visit [facility] [address] [place] [address] Minda Yeboah NP [address] [place] [address] documented as of this encounter Procedures Procedure [...] on filedocumented in this encounter Care Teams Crane Man Relationship Specialty Start Date End Date Tony Mathur MD [address] [place] [address] PCP - General Family Medicine 09/19/23 Minda Yeboah NP [address] [place] [address] Referring Physician Nurse Practitioner 02/10/23 Minda Yeboah NP [address] [place] [address] Nurse Practitioner Family Medicine 09/19/23 documented as of this encounter
--- OUTSIDE RECORDS SUMMARY | 2025-01-01 12:42 | XMS_ITS | Encounter Summary ---
Author Organization [facility] Address [address] [facility] [place] [address] Care Team Providers Care Commercial Accountant Name Role Phone Minda Yeboah LENS ASSORTER Unavailable [phone] Tony Mathur MD Primary Care Provider [phone] Minda Yeboah LENS ASSORTER Unavailable [phone] Encounter Details Date Type Department Care Team (Late Contact Info) Description 12/20/2024 Refill [facility] [address] [place] [address] Minda Yeboah, LENS ASSORTER [address] [place] [address] Mixed hyperlipidemia (CMS/HCC) (Primary Dx); Hypomagnesemia Social History Tobacco Use Types Packs/Day Years [...] 01/13/2025 1:00 PM EDT Office Visit [facility] [address] [place] [address] Minda Yeboah NP [address] [place] [address] Scheduled Orders Name Type Priority Associated Diagnoses Orde r Schedule ALT Lab Routine Mixed hyperlipidemia (CMS/HCC) Expected: 02/19/2025 (Approximate), Expires: 12/20/2025 AST Lab Routine Mixed hyperlipidemia ([facility]/HCC) Expected: 02/19/2025 (Approximate), Expires: 12/20/2025 Lipid panel Lab Routine Mixed hyperlipidemia ([facility]/HCC) Expected: 02/19/2025 (Approximate), Expires: 12/20/2025 Magnesium Lab Routine Hypomagnesemia Expected: 01/03/2025 (Approximate), Expires: 12/20/2025 documented as of this encounter Visit Diagnoses Diagnosis Mixed hyperlipidemia (CMS/HCC)- Primary Mixed hyperlipidemia Hypomagnesemia Disorders of magnesium metabolism documented in this encounter Care Teams Commercial Accountant Relationship Specialty Start Date End Date Tony Mathur MD [address] [place] [address] PCP - General Family Medicine 09/19/23 Minda Yeboah NP [address] [place] [address] Referring Physician Nurse Practitioner 02/10/23 Minda Yeboah NP [address] [place] [address] Nurse Practitioner Family Medicine 09/19/23 documented as of this encounter
--- OUTSIDE RECORDS SUMMARY | 2025-01-01 12:42 | XMS_ITS | Encounter Summary ---
Author Organization [facility] Address [address] [place] [address] Care Team Providers Care Doorshaker Name Role Phone Minda Yeboah NP Unavailable [phone] Tony Mathur MD Primary Care Provider [phone] Minda Yeboah NP Unavailable [phone] Encounter Details Date Type Department Care Team (Late Contact Info) Description 12/22/2024 Refill [facility] [address] [place] [address] Minda Yeboah NP [address] [place] [address] UTI (urinary tract infection), uncomplicated (Primary Dx) Social History Tobacco Use Types [...] 01/13/2025 1:00 PM EDT Office Visit [facility] [address] [place] [address] Minda Yeboah NP [address] [place] [address] documented as of this encounter Visit Diagnoses Diagnosis UTI (urinary tract infection), uncomplicated- Primary Urinary tract infection, site not specified documented in this encounter Care Teams Doorshaker Relationship Specialty Start Date End Date Tony Mathur MD [address] [place] [address] PCP - General Family Medicine 09/19/23 Minda Yeboah NP [address] [place] [address] Referring Physician Nurse Practitioner 02/10/23 Minda Yeboah NP [address] [place] [address] Nurse Practitioner Family Medicine 09/19/23 documented as of this encounter
--- OUTSIDE RECORDS SUMMARY | 2025-01-01 12:42 | XMS_ITS | Encounter Summary ---
Author Organization [facility] Address [address] [facility] [place] [address] Care Team Providers Care Skin Diver Name Role Phone Minda Yeboah SERVICE WORKER Unavailable [phone] Tony Mathur MD Primary Care Provider [phone] Minda Yeboah SERVICE WORKER Unavailable [phone] Encounter Details Date Type Department Care Team (Late st Contact Info) Description 12/31/2024 Telephone [facility] [address] [place] [address] Minda Yeboah SERVICE WORKER [address] [place] [address] Social History Tobacco Use Types Packs/Day Years [...] * Telephone Encounter - SHARON QUIGLEY - 12/31/2024 4:30 PM EDT Text Broomcorn Grader Hi, this is Sydney. I am just feeling of taking all the medicine and that new acid reflex medicine is not helping at all. I do not know what else to do. Give me a call back at [phone]. Oh, thank you. documented in this encounter Plan of Treatment Upcoming Encounters Date Type Department Care Team (Late st Contact Info) Description 01/13/2025 1:00 PM EDT Office Visit [facility] [address] [place] [address] Minda Yeboah NP [address] [place] [address] documented as of this encounter Visit Diagnoses Not on filedocumented in this encounter Care Teams Skin Diver Relationship Specialty Start Date End Date Tony Mathur MD [address] [place] [address] PCP - General Family Medicine 09/19/23 Minda Yeboah NP [address] [place] [address] Referring Physician Nurse Practitioner 02/10/23 Minda Yeboah NP [address] [place] [address] Nurse Practitioner Family Medicine 09/19/23 documented as of this encounter
--- OUTSIDE RECORDS SUMMARY | 2025-01-01 12:42 | XMS_ITS | Encounter Summary ---
Author Organization [facility] Sys tem Address [id number] [address] [place] [address] Care Team Providers Care Tank Car Mechanic Name Role Phone Unavailable Primary Care Provider Unavailabl e Encounter Details Date Type Department Care Team (Late st Contact Info) Description 02/27/2023 Telephone [facility] [address] [address] Codie Hopkins CMA Social History [...] Office Visit [facility], A Department of [facility] [address] [address] Cristian Szymanski MD [address] [address] documented as of this encounter Visit Diagnoses Not on filedocumented in this encounter
--- OUTSIDE RECORDS SUMMARY | 2025-01-01 12:42 | XMS_ITS | Encounter Summary ---
Author Organization [facility] Address [address] [place] [address] Care Team Providers Care Laboratory Worker Name Role Phone Minda Yeboah TRANSIT PLANNING MANAGER Unavailable [phone] Tony Mathur MD Primary Care Provider [phone] Minda Yeboah TRANSIT PLANNING MANAGER Unavailable [phone] Reason for Visit * Reason Comments Med Change Request Encounter Details Date Type Department Care Team (Late st Contact Info) Description 07/04/2024 Refill [facility] [address] [place] [address] Minda Yeboah NP [address] [place] [address] Seizures ([facility]) Social History Tobacco Use Types Packs/Day Years [...] Visit [facility] [address] [place] [address] Minda Yeboah NP [address] [place] [address] documented as of this encounter Visit Diagnoses Diagnosis Seizures (CMS/HCC) Other convulsions documented in this encounter Care Teams Laboratory Worker Relationship Specialty Start Date End Date Tony Mathur MD [address] [place] [address] PCP - General Family Medicine 09/19/23 Minda Yeboah NP [address] [place] [address] Referring Physician Nurse Practitioner 02/10/23 Minda Yeboah NP [address] [place] [address] Nurse Practitioner Family Medicine 09/19/23 documented as of this encounter
--- OUTSIDE RECORDS SUMMARY | 2025-01-01 12:42 | XMS_ITS | Clinical Summary ---
Author Organization [facility] Address [address] [place] [address] Care Team Providers Care Personal Driver Name Role Phone Minda Yeboah NP Unavailable [phone] Tony Mathur MD Primary Care Provider [phone] Minda Yeboah DEDICATED TRUCK DRIVER Unavailable [phone] Allergies No known active allergies Medications ibuprofen 800 MG tablet Take 800 mg by mouth every 8 (eight) hours if needed 04/05/20 24 Active albuterol HFA 90 mcg/act inhalerIndications :Simple chronic bronchitis (CMS/HCC) Inhale 2 puffs every 6 (six) hours if needed for wheezing 18 g 09/16/19 25 Active methotrexate 2.5 MG tablet Take 12.5 mg by mouth 1 (one) time per week. Active folic acid (Folvite) 1 MG tablet Take 1 mg by mouth Daily Active pantoprazole (ProtoNix) 40 MG EC tabletIndications: Gastroesophageal reflux disease, unspecified whether esophagitis present Take 1 tablet (40 mg) by mouth in the morning. Take before meals. Do not crush, chew, or split. 30 tablet 1 12/18/19 25 025 Active alendronate (Fosamax) 70 MG tabletIndications: Osteoporosis, [...] to your thyroid medicati 12 tablet 1 12/20/19 25 025 Active ARIPiprazole (Abilify) 5 MG tabletIndications: Major depressive disorder with single episode, in remission (HCC) (CMS/HCC) Take 1 tablet (5 mg) by mouth Daily 90 tablet 12/20/19 25 025 Active cetirizine (ZyrTEC) 10 MG tabletIndications: Vitamin D deficiency,Environ mental and seasonal allergies Take 1 tablet (10 mg) by mouth Daily 90 tablet 12/20/19 025 Active cholecalciferol (Vitamin D-3) 50 MCG (1999 UT) capsuleIndications :Vitamin D deficiency Take 1 capsule (50 mcg) by mouth Daily 90 capsule 12/20/19 025 Active cyclobenzaprine (Flexeril) 5 MG tabletIndications: Other chronic pain Take 1 tablet (5 mg) by mouth Daily as needed for muscle spasms 30 tablet 12/20/19 25 025 Active fluticasone (Flonase) 50 MCG/ACT nasal sprayIndications:E nvironmental and seasonal allergies Administer 2 sprays into each nostril Daily 48 g 12/20/19 025 Active levothyroxine (Synthroid) 50 MCG tabletIndications: Hypothyroidism (acquired) (CMS/HCC) Take 1 tablet (50 mcg) by mouth in the morning. Take before meals. 90 tablet 12/20/19 025 Active QUEtiapine (SEROquel) 50 MG tabletIndications: Anxiety and depression (CMS/HCC) Take 3 tablets (150 mg) by mouth at bedtime 270 tablet 12/20/19 025 Active sertraline (Zoloft) 100 MG tabletIndications: Major depressive disorder with single episode, in remission (HCC) (CMS/HCC),MARY (generalized anxiety disorder) (CMS/HCC) Take 1 tablet (100 mg) by mouth in the morning and 1 tablet (100 mg) before bedtime. 180 tablet 12/20/19 025 Active topiramate (Topamax) 100 MG tabletIndications: Seizures (CMS/HCC) Take 1 tablet (100 mg) by mouth in the morning and 1 tablet (100 mg) before bedtime. Total daily dose is 125 mg. 180 tablet 1 12/20/19 25 025 Active topiramate (Topamax) 25 MG tabletIndications: Seizures (CMS/HCC) Take 1 tablet (25 mg) by mouth in the morning and 1 tablet (25 mg) before bedtime. Total daily dose is 125 mg. 180 tablet 1 12/20/19 25 025 Active Umeclidinium-Vilan terol (Anoro Ellipta) 62.5-25 MCG/ACT aerosol powderIndications: Simple chronic bronchitis (CMS/HCC) Inhale 1 puff Daily 3 each 1 12/20/19 25 025 Active atorvastatin (Lipitor) 80 MG tabletIndications: Mixed hyperlipidemia (CMS/HCC) Take 1 tablet (80 mg) by mouth Daily 30 tablet 5 12/21/19 25 025 Active magnesium oxide (Mag-Ox) 400 (240 Mg) MG tabletIndications: Hypomagnesemia Take 1 tablet (400 mg) by mouth in the morning and 1 tablet (400 mg) before bedtime. 180 tablet 12/21/19 25 025 Active cyclobenzaprine (Flexeril) 5 MG tablet Take 5 mg by mouth Daily as needed for muscle spasms 05/16/20 24 Discontinu ed(Reorder ) alendronate (Fosamax) 70 MG tabletIndications: Osteoporosis, unspecified [...] your thyroid medicati 12 tablet 1 10/15/19 025 Discontinu ed(Reorder ) ARIPiprazole (Abilify) 5 MG tabletIndications: Major depressive disorder with single episode, in remission (HCC) (CMS/HCC) Take 1 tablet (5 mg) by mouth Daily 90 tablet 10/15/19 25 025 Discontinu ed(Reorder ) atorvastatin (Lipitor) 40 MG tabletIndications: Mixed hyperlipidemia (CMS/HCC) Take 1 tablet (40 mg) by mouth at bedtime 90 tablet 1 10/15/19 025 Discontinu ed(Reorder ) cetirizine (ZyrTEC) 10 MG tabletIndications: Vitamin D deficiency,Environ mental and seasonal allergies Take 1 tablet (10 mg) by mouth Daily 90 tablet 1 10/15/19 025 Discontinu ed(Reorder ) cholecalciferol (Vitamin D-3) 50 MCG (2000 UT) capsuleIndications :Vitamin D deficiency Take 1 capsule (50 mcg) by mouth Daily 90 capsule 1 10/15/19 025 Discontinu ed(Reorder ) fluticasone (Flonase) 50 MCG/ACT nasal sprayIndications:E nvironmental and seasonal allergies Administer 2 sprays into each nostril Daily 48 g 10/15/19 025 Discontinu ed(Reorder ) levothyroxine (Synthroid) 50 MCG tabletIndications: Hypothyroidism (acquired) (CMS/HCC) Take 1 tablet (50 mcg) by mouth in the morning. Take before meals. 90 tablet 1 10/15/19 025 Discontinu ed(Reorder ) omeprazole (PriLOSEC) [address] capsuleIndications :Gastroesophageal reflux disease, unspecified whether esophagitis present Take 1 capsule (40 mg) by mouth in the morning. Take before meals. 90 capsule 10/15/19 025 Discontinu ed(Ineffec tive) magnesium oxide (Mag-Ox) 400 (240 Mg) MG tabletIndications: Hypomagnesemia Take 1 tablet (400 mg) by mouth Daily 90 tablet 1 10/15/19 025 Discontinu ed(Reorder ) QUEtiapine (SEROquel) 50 MG tabletIndications: Anxiety and depression (CMS/HCC) Take 3 tablets (150 mg) by mouth at bedtime 270 tablet 1 10/15/19 025 Discontinu ed(Reorder ) sertraline (Zoloft) 100 MG tabletIndications: MARY (generalized anxiety disorder) (CMS/HCC),Major depressive disorder with single episode, in remission (HCC) (CMS/HCC) Take 1 tablet (100 mg) by mouth in the morning and 1 tablet (100 mg) before bedtime. 180 tablet 1 10/15/19 25 025 Discontinu ed(Reorder ) topiramate (Topamax) 100 MG tabletIndications: Seizures (CMS/HCC) Take 1 tablet (100 mg) by mouth in the morning and 1 tablet (100 mg) before bedtime. Total daily dose is 125 mg. 180 tablet 1 10/15/19 25 025 Discontinu ed(Reorder ) topiramate (Topamax) 25 MG tabletIndications: Seizures (CMS/HCC) Take 1 tablet (25 mg) by mouth in the morning and 1 tablet (25 mg) before bedtime. Total daily dose is 125 mg. 180 tablet 1 10/15/19 25 025 Discontinu ed(Reorder ) Umeclidinium-Vilan terol (Anoro Ellipta) 62.5-25 MCG/ACT aerosol powderIndications: Simple chronic bronchitis (CMS/HCC) Inhale 1 puff Daily 3 each 1 10/15/19 025 Discontinu ed(Reorder ) atorvastatin (Lipitor) 40 MG tabletIndications: Mixed hyperlipidemia (CMS/HCC) Take 1 tablet (40 mg) by mouth at bedtime 90 tablet 1 12/20/19 25 025 Discontinu ed(Ineffec tive) nitrofurantoin, macrocrystal-monoh ydrate, (Macrobid) 100 MG capsuleIndications :UTI (urinary tract infection), uncomplicated Take 1 capsule (100 mg) by mouth in the morning and 1 capsule (100 mg) before bedtime. Do all this for 7 days. 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 Pt meets qualifications of OAC 4731-06-03 for [...] Assessment & Plan (04/29/2024 6:07 PM EDT): Feels meds are working great Assessment & Plan (12/18/2023 3:19 PM EDT): Feels meds are working great Hypothyroidism (acquired) 07/03/2023 Assessment [...] of the risks of continued smoking: stroke, [place], all forms of cancer, lung disease, and [...] of the risks of continued smoking: stroke, [place], all forms of cancer, lung disease, and [...] of the risks of continued smoking: stroke, [place], all forms of cancer, lung disease, and [...] of the risks of continued smoking: stroke, [place], all forms of cancer, lung disease, and [...] prn dose changes Depression with anxiety 08/14/2023 03/0 10/2024 Overview (07/04/2024): 10/20/22: MARY 7 score=18, PHQ [...] Encounters Date Type Department Care Team Description 12/31/2024 Telephone [facility] [address] [place] [address] Minda Yeboah NP 12/24/2024 Orders Only [facility] [address] [place] [address] Minda Yeboah NP 12/22/2024 Refill [facility] [address] [place] [address] Minda Yeboah NP UTI (urinary tract infection), uncomplicated (Primary Dx) 12/20/2024 Refill [facility] [address] [place] [address] Minda Yeboah NP Mixed hyperlipidemia (CMS/HCC) (Primary Dx); Hypomagnesemia 12/19/2024 Refill [facility] [address] [place] [address] Minda Yeboah NP Other chronic pain (Primary Dx); Osteoporosis, unspecified osteoporosis type, unspecified pathological fracture presence (CMS/HCC); Major depressive disorder with single episode, in remission (HCC) (CMS/HCC); Mixed hyperlipidemia (CMS/HCC); Vitamin D deficiency; Environmental and seasonal allergies; Hypothyroidism (acquired) (CMS/HCC); Gastroesophageal reflux disease, unspecified whether esophagitis present; Anxiety and depression (CMS/HCC); MARY (generalized anxiety disorder) (CMS/HCC); Seizures (CMS/HCC); Simple chronic bronchitis (CMS/HCC) 12/19/2024 Orders Only [facility] [address] [place] [phone] Minda Yeboah NP Hypercalcemia (Primary Dx) 12/19/2024 Telephone [facility] [address] [place] [phone] Minda Yeboah NP 12/18/2024 External Result Encounter [facility] External Department Unsolicited Minda Yeboah NP 12/18/2024 Clinisync Result Encounter [facility] External Department Unsolicited Midna Yeboah NP 12/17/2024 4:00 PM EDT Office Visit [facility] [address] [place] [phone] Minda Yeboah NP Hematemesis, unspecified whether nausea present (Primary Dx); Gastroesophageal reflux disease, unspecified whether esophagitis present; Rheumatoid arthritis with positive rheumatoid factor, involving unspecified site (CMS/HCC); Cigarette nicotine dependence without complication; Encounter for screening mammogram for malignant neoplasm of breast; Diarrhea, unspecified type; Multiple thyroid nodules (CMS/HCC); Obesity with body mass index (BMI) of 30.0 to 39.9 12/17/2024 Orders Only [facility] [address] [place] [phone] Minda Yeboah NP Multiple thyroid nodules (CMS/HCC) (Primary Dx) 10/14/2024 2:20 PM EDT Office Visit [facility] [address] [place] [phone] Minda Yeboah NP Hypothyroidism (acquired) (CMS/HCC) (Primary [...] disorder with single episode, in remission (HCC) (CMS/[facility]); Vitamin D deficiency; Environmental and seasonal allergies; Anxiety and depression (CMS/HCC); Simple chronic bronchitis (CMS/HCC) ; Insomnia, unspecified type 10/14/2024 Bamboo flowsheet [facility] [address] [place] [address] Minda Yeboah NP 10/04/2024 Refill [facility] [address] [place] [address] Minda Yeboah NP Vitamin D deficiency; Environmental [...] Office Visit [facility] [address] [place] [address] Minda Yeboah, DEDICATED TRUCK DRIVER [address] [place] [address] Health Maintenance Due Date Last Done Comments [...] SCANNED LABS Routine 12/24/2024 10:19 AM EDT ALL THYROXINE (T4) FREE Routine 12/18/2024 3:42 PM EDT TBH VITAMIN D 25 [place] Routine 12/18/2024 3 :42 PM EDT ALL THYROID STIM HORMONE Routine 12/18/2024 3:42 PM EDT ALL LIPID PROFILE (FASTING) Routine 12/18/2024 3:42 PM EDT ALL MAGNESIUM Routine 12/18/2024 3:42 PM EDT [facility] CMP (CMP) (FOR REMOTE [facility] USE) Routine 12/18/2024 3:42 PM EDT MHPT DIFFERENTIAL Routine 12/18/2024 3:4 2 PM EDT ALL CBC WITH AUTO DIFF Routine 3:42 PM EDT AEROBIC CARLOS CHARGE (NMIC56) Routine 12/18/2024 3:32 PM EDT URINE CULTURE - [facility] Routine 12/18/2024 3:32 PM EDT TB URINE MICROSCOPIC ONLY Routine 12/18/2024 3:32 PM EDT TB UA (CLEAN/CATCH) MICROSCOPIC IF INDICATE Routine 12/18/2024 3:32 PM EDT CULTURE, URINE, ROUTINE Routine 12/18/2024 3:32 PM EDT LAB COLOGUARD COLON CANCER SCREEN Routine 09/21/2023 6:48 PM EST MM TOMOSYNTHESIS SCREENING BI 08/17/2023 3:41 PM EST from Last 3 Months or Most Recently Relevant to Health Maintenance Results * SCANNED LABS (12/24/2024 3:23 PM EDT) Only the most recent of2 resultswithin the time period is included. us Minda Yeboah DEDICATED TRUCK DRIVER LAB CHG PERFORMABLES Final Resu lt * TBH VITAMIN D 25 [place] (12/18/2024 3:42 PM EDT) VITAMIN D 41.2 ng/mL [facility] Comment: <20 ng/mL Vit D deficient 20-<30 ng/mL Vit D insufficient 30-100 ng/mL Vit D sufficient >100 ng/mL Potential Toxicity 12/18/2024 3:42 PM EDT 12/18/2024 3:43 PM EDT Narrative CLINISYNC - 12/18/2024 5:26 PM EDT Minda Yeboah DEDICATED TRUCK DRIVER CLINISYNC Final Result CLINISYNC TB[facility] * (ABNORMAL) MHPT DIFFERENTIAL (12/18/2024 3:42 PM [...] - 12/18/2024 4:30 PM EDT Minda Yeboah DEDICATED TRUCK DRIVER CLINISYNC Final Result CLINISYNC TB[facility] * (ABNORMAL) [facility] CMP (CMP) (FOR REMOTE [facility] USE) (12/18/2024 3:42 PM EDT) SODIUM 133(L) 136 - 145 mmol/L TBH POTASSIUM 3.7 3.5 - 5.1 mmol/L TBH CHLORIDE 99 98 - 107 mmol/L TBH CARBON DIOXIDE 25.9 21.0 - 32.0 mmol/L TBH ANION GAP 11.8 TBH GLUCOSE 105 74 - 106 mg/dL TBH BLOOD UREA NITROGEN 6.0(L) 7.0 - 18.0 mg/dL TBH CREATININE 1.05(H) 0.55 - 1.02 mg/dL TBH TBH EGFR-AF VINCENTIAN >60 >=60 mL/min/1. 73m 2 TBH TBH EGFR-NON AF VINCENTIAN 54(L) >=60 mL/min/1. 73m 2 TBH BUN [...] NP CLINISYNC Final Result Performing Organization Address [facility] Co de Phone Number [facility] * ALL THYROXINE (T4) FREE (12/18/2024 3:42 PM EDT) FREE T4 0.96 0.76 - 1.46 ng/dL TB 12/18/2024 3:42 PM EDT 12/18/2024 3:43 PM EDT Narrative CLINISYNC - 12/18/2024 5:26 PM EDT Minda Yeboah NP CLINISYNC Final Result Performing Organization Address City/State/[facility] Co de Phone Number [facility] * ALL THYROID STIM HORMONE (12/18/2024 3:42 PM EDT) THYROID STIMULATING HORMONE 1.851 0.358 - 3.740 uIU/mL TB 12/18/2024 3:42 PM EDT 12/18/2024 3:43 PM EDT Narrative CLINISYNC - 12/18/2024 4:39 PM EDT us Minda Yeboah NP CLINISYNC Final Result Performing Organization Address [facility]/ZIP Co de Phone Number [facility] * (ABNORMAL) ALL MAGNESIUM (12/18/2024 3:42 PM EDT) MAGNESIUM 1.6(L) 1.8 - 2.4 mg/dL TB 12/18/2024 3:42 PM EDT 12/18/2024 3:43 PM EDT Narrative CLINISYNC - 12/18/2024 4:39 PM EDT Minda Yeboah NP CLINISYNC Final Result Performing Organization Address [facility] Phone Number [facility] * (ABNORMAL) ALL LIPID PROFILE (FASTING) (12/18/2024 3:42 PM EDT) TRIGLYCERIDES 139 <=150 mg/dL TBH CHOLESTEROL 236(H) <=200 mg/dL TB HDL CHOLESTEROL [...] Narrative CLINISYNC - 12/18/2024 4:39 PM EDT us Minda Aichholz DEDICATED TRUCK DRIVER CLINISYNC Final Result CLINISYNC TB * (ABNORMAL) ALL CBC WITH AUTO DIFF (12/18/2024 3:42 PM EDT) [facility] WBC 6.8 4.0 - 11.0 10 3/uL TBH TB RBC 4.05(L) 4.20 - 5.40 10 6/uL TBH TB HGB 12.2 12.0 - 16.0 g/dL TB TB HCT 36.7 36.0 - 48.0 % TB TB MCV 90.6 81.0 - 99.0 fL TB TB MCH 30.1 26.7 - 34.0 pg TBH TB MCHC 33.2 29.9 - 35.2 g/dL TB TB RDW 15.3(H) 11.0 - 15.0 % TBH TB PLT 351 150 - 450 10 3/uL TBH TB MPV 9.2(L) 9.5 - 13.5 fL TB 12/18/2024 3:42 PM EDT 12/18/2024 3:43 PM EDT Narrative CLINISYNC - 12/18/2024 4:30 PM EDT Minda Edilia DEDICATED TRUCK DRIVER CLINISYNC Final Result CLINISYNC [facility] * (ABNORMAL) URINE CULTURE - [facility] (12/18/2024 3:32 PM EDT) Pathologist [facility] URINE CULTURE - [facility] Urine Culture - FR Testing performed at [facility] URINE CULTURE - [facility] [address] [place] [address] [facility] URINE CULTURE - FR O:ESCCOL Isolated [facility] URINE CULTURE - [facility] Urine Culture - FR Organism Comments [facility] URINE CULTURE - FR 75,000 CFU/ML [facility] URINE CULTURE - [facility] Organism: 1.1 Antibiotic Interpretation CARLOS Status [facility] URINE CULTURE - FR Amikacin S F(S) [facility] URINE CULTURE - FR Amoxicillin/Clavul anate S F(S) [facility] URINE CULTURE - [facility] Ampicillin S F(S) [facility] URINE CULTURE - [facility] Aztreonam S F(S) [facility] URINE CULTURE - [facility] Ceftazidime S F(S) [facility] URINE CULTURE - [facility] Ceftazidime/Avibac horvath S F(S) [facility] URINE CULTURE - [facility] Ceftolozane/Tazoba ctam S F(S) [facility] URINE CULTURE - [facility] Ciprofloxacin S F(S) [facility] URINE CULTURE - [facility] Ertapenem S F(S) [facility] URINE CULTURE - [facility] Gentamicin S F(S) [facility] URINE CULTURE - [facility] Levofloxacin S F(S) [facility] URINE CULTURE - [facility] Meropenem S F(S) [facility] URINE CULTURE - [facility] Meropenem/Vaborbac horvath S F(S) [facility] URINE CULTURE - [facility] [...] 12/24/2024 2:31 PM EDT us Minda Yeboah NP LAB BLOOD ORDERABLES Final [facility] * ([facility]NORMAL) AEROBIC CARLOS CHARGE (NMIC56) (12/18/2024 3:32 PM EDT) AMIKACIN <16(S) 12/21/2024 8:57 AM EDT [facility] AMOXACILLIN/K CLAVULANATE <8/4(S) 12/21/2024 8:57 AM EDT [facility] AMPICILLIN <8(S) 12/21/2024 8:57 AM EDT [facility] AMPICILLIN/SULBACT AM <4/2(S) 12/21/2024 8:57 AM EDT [facility] AZTREONAM <4(S) 12/21/2024 8:57 AM EDT [facility] CEFAZOLIN <2(S) 12/21/2024 8:57 AM EDT [facility] CEFEPIME <2(S) 12/21/2024 8:57 AM EDT [facility] CEFTAZIDIME <1(S) 12/21/2024 8:57 AM EDT [facility] CEFTAZIDIME/AVIBAC HORVATH <4(S) 12/21/2024 8:57 AM EDT [facility] CEFTOLOZANE/TAZOBA CTAM <2(S) 12/21/2024 8:57 AM EDT [facility] CEFTRIAXONE <1(S) 12/21/2024 8:57 AM EDT [facility] CEFUROXIME <4(S) 12/21/2024 8:57 AM EDT [facility] CIPROFLOXACIN <0.25(S) 12/21/2024 8:57 AM EDT [facility] ERTAPENEM <0.5(S) 12/21/2024 8:57 AM EDT [facility] GENTAMICIN <2(S) 12/21/2024 8:57 AM EDT [facility] LEVOFLOXACIN <0.5(S) 12/21/2024 8:57 AM EDT [facility] MEROPENEM <1(S) 12/21/2024 8:57 AM EDT [facility] MEROPENEM/VABORBAC HORVATH <2(S) 12/21/2024 8:57 AM EDT [facility] NITROFURANTOIN <32(S) 12/21/2024 8:57 AM EDT [facility] PIPERACILLIN/TAZOB ACTAM <8(S) 12/21/2024 8:57 AM EDT [facility] TETRACYCLINE <4(S) 12/21/2024 8:57 AM EDT [facility] TIGECYCLINE <2(S) 12/21/2024 8:57 AM EDT [facility] TOBRAMYCIN <2(S) 12/21/2024 8:57 AM EDT [facility] TRIMETHOPRIM/SULFA METHOXAZOLE <0.5/9.5( S) 12/21/2024 8:57 AM EDT [facility] Urine Urine specimen obtained by clean catch procedure / Unknown 12/18/2024 3:32 PM EDT 12/19/2024 2:40 PM EDT Minda Yeboah NP [facility] Final Result Performing Organization Address City/[facility] de Phone Number [facility] [address] [id number], [facility] [address] [id number] * (ABNORMAL) [facility] URINE MICROSCOPIC ONLY (12/18/2024 3:32 PM EDT) TB WBC 10-20(A) NONE SEEN #/HPF TBH TBH RBC 0-2 0 - 2 #/HPF TBH BACTERIA URINE MODERATE(A ) NONE SEEN #/HPF TBH MUCUS URINE MODERATE(A ) NONE SEEN TBH SQUAMOUS EPITHELIAL CELL URINE MANY(A) NONE/RARE #/LPF TBH CRYSTALS SEEN? None Seen None Seen #/HPF TBH CAST SEEN? NONE SEEN NONE SEEN #/LPF TBH URINE CULTURE INDICATED YES-[facility] TBH 12/18/2024 3:32 PM EDT 12/18/2024 3:43 PM EDT Narrative CLINISYNC - 12/18/2024 4:49 PM EDT Minda Yeboah NP CLINISYNC Final Result Performing Organization Address City/[facility]/ZIP Co de Phone Number CLINISYNC [facility] * (ABNORMAL) TBH UA (CLEAN/CATCH) [...] Narrative CLINISYNC - 12/18/2024 4:49 PM EDT Minda Yeboah NP CLINISYNC Final Result Performing Organization Address City/[facility]/ZIP Co de [facility] Number [facility] * Urine culture (12/18/2024 3:32 PM EDT) [facility] ORGANISM Escherichia coli 12/21/2024 8:57 AM EDT [facility] COLONY COUNT 75,000 12/21/2024 8:57 AM EDT [facility] Urine Urine specimen obtained by clean catch procedure / Unknown 12/18/2024 3:32 PM EDT 12/19/2024 2:40 PM EDT Minda Yeboah NP LAB MICROBIOLOGY - GENERAL ORDE RABLES Final Result Performing Organization Address City/[facility]/ZIP Co de Phone Number [facility] [address] [place] [address], [facility] [address] [place] [address] * Cologuard?? colon cancer screening (09/21/2023 6:48 PM EST) Stool us Minda Yeboah NP LAB MOLECULAR DIAGNOSTICS ORDER SILVA Final Result * MM TOMOSYNTHESIS SCREENING BI (08/17/2023 3:41 PM EST) Anatomical Region Laterality Modality Other 08/17/2023 3:41 PM EST Narrative 08/17/2023 3:42 PM EST The [address] [address] Mammography Report Signed Patient: BENTON CARRERO MR#: [id number] : 1965 Acct:[id number] Age/Sex: 57 / F ADM Date: 08/17/23 Loc: INF Attending Dr: Minda Yeboah NP Ordering Physician: Minda Yeboah NP Results: Date of Service: 08/17/23 Follow Up: Procedure(s): MM tomosynthesis screening BI Accession Number(s): [id number] cc: Minda Yeboah NP Patient Name: BENTON CARRERO MR#: [id number] : 1965 Exam Date: 08/17/2023 Ordering Doctor: [...] uterine cancer at age 22. LOCATION: [facility] BREAST COMPOSITION: Heterogeneously dense,which may obscure [...] Signed By: 08/17/23 1542 DD/ 1541 TD/TT: Client Services Assistant: Procedure Note Radiology, Radiologist, MD - 08/17/2023 [place] [address] Mammography Report Signed Patient: BENTON CARRERO MMR#: [id number] : 1965Acct:[id number] Age/Sex: 57 / FADM Date: 08/17/23 Loc: INF Attending Dr: Minda Yeboah NP Ordering Physician: Minda Yeboah NPResults: Date of Service: 08/17/23Follow Up: Procedure(s): MM tomosynthesis screening BI Accession Number(s): [id number] cc: Minda Yeboah NP Patient Name: BENTON CARRERO MR#: [id number] : 1965 Exam Date: 08/17/2023 Ordering Doctor: [...] uterine cancer at age 22. LOCATION: [facility] BREAST COMPOSITION: Heterogeneously dense,which may obscure [...] M.D. Signed By:08/17/23 1542 DD/ 1541 TD/TT: Client Services Assistant: Minda Yeboah NP [facility] IMAGING Final Result from Last 3 Months or Most Recently Relevant to Health Maintenance Insurance MEDICAID [place] Care Teams Personal Driver Relationship Specialty Start Date End Date Tony Mathur MD [address] [place] [address] PCP - General Family Medicine 09/19/23 Minda Yeboah NP [address] [place] [address] Referring Physician Nurse Practitioner 02/10/23 Minda Yeboah NP [address] [place] [address] Nurse Practitioner Family Medicine 09/19/23
--- OUTSIDE RECORDS SUMMARY | 2025-01-01 12:42 | XMS_ITS | Encounter Summary ---
Author Organization [facility] Address [address] [facility] [place] [address] Care Team Providers Care Stock Patch Sawyer Name Role Phone Minda Yeboah NP Unavailable [phone] Tony Mathur MD Primary Care Provider [phone] Minda Yeboah NP Unavailable [phone] Encounter Details Date Type Department Care [...] [facility] [address] [place] [address] Minda Yeboah NP [address] [place] [address] documented as of this encounter Procedures Procedure Name Priority Date/Time Associated Diagnosis Comments XR CERVICAL SPINE 5V 12/19/2023 11:16 AM EDT documented in this encounter Results * XR CERVICAL SPINE 5V (12/19/2023 11:16 AM EDT) Anatomical Region Laterality Modality Other 12/19/2023 11:1 6 AM EDT Narrative 12/19/2023 11:19 [place] [address] XRay Report Signed Patient: BENTON CARRERO MR#: [id number] : 1965 Acct:[id number] Age/Sex: 58 / F ADM Date: 12/18/23 Loc: RAD Attending Dr: Non-Staff Physician Kenneth Ordering Physician: PhysicianBrittaStaff Kenneth Date of Service: 12/18/23 Procedure(s): XR cervical spine 5V Accession Number(s): [id number] cc: Minda Yeboah VP ORGANIZATIONAL DEVELOPMENT; PhysicianBrittaStaff Kenneth [place] [id number] Patient Name: BENTON CARRERO MRN: [id number] date: 1965 Sex: F Assigned Patient Location: [facility] Current Patient Location: LAB Accession/Order Number: [id number] Exam Date: 12/18/2023 15:30 Report Date: 12/19/2023 [...] Signed By: 12/19/23 1119 DD/ 15 TD/TT: Criminal Defense Attorney: Procedure Note Radiology, Radiologist, - 12/19/2023 The [place] [id number] XRay Report Signed Patient: BENTON CARRERO MMR#: [id number] : 1965Acct:[id number] Age/Sex: 58 / FADM Date: 12/18/23 Loc: RAD Attending Dr: Non-Staff Physician Kenneth Ordering Physician: PhysicianNon-Staff Kenneth Date of Service: 12/18/23 Procedure(s): XR cervical spine 5V Accession Number(s): [id number] cc: Minda Yeboah NP; PhysicianLatoya M.D. The [place] [id number] Patient Name: BENTON CARRERO MRN: [id number] date: 1965 Sex: F Assigned Patient Location: [facility] Current Patient Location: LAB Accession/Order Number: [id number] Exam Date: 12/18/2023 15:30 Report Date: 12/19/2023 [...] M.D. Signed By:12/19/23 1119 DD/ 15 TD/TT: Criminal Defense Attorney: Generic External Data Provider [facility] Final Result documented in this encounter Visit Diagnoses Not on filedocumented in this encounter Care Teams Stock Patch Sawyer Relationship Specialty Start Date End Date Tony Mathur MD [address] [place] [address] PCP - General Family Medicine 09/19/23 Minda Yeboah NP [address] [place] [address] Referring Physician Nurse Practitioner 02/10/23 Minda Yeboah NP [address] [place] [address] Nurse Practitioner Family Medicine 09/19/23 documented as of this encounter
--- OUTSIDE RECORDS SUMMARY | 2025-01-01 12:42 | XMS_ITS | Encounter Summary ---
Author Organization [facility] Address [address] [place] [address] Care Team Providers Care Supervisor Reclamation Name Role Phone Minda Yeboah NP Unavailable [phone] Tony Mathur MD Primary Care Provider [phone] Minda Yeboah NP Unavailable [phone] Reason for Referral * Medications - Pending Review Specialty Diagnoses / Procedures Referred By Kathy stokes Referred To Contact Diagnoses Simple chronic bronchitis (CMS/HCC) Minda Yeboah NP [address] [place] [address] Phone: tel: fax: Referral ID Status Reason Start Date Expiration Date V isits Requested Visits Authorized [id number] Pending Review 1 1 Encounter Details Date Type Department Care Team (Late st Contact Info) Description 12/19/2024 Refill [facility] [address] [place] [phone] Minda Yeboah NP [address] [place] [address] Other chronic pain (Primary Dx); Osteoporosis, unspecified osteoporosis type, unspecified pathological fracture presence (CMS/HCC); Major depressive disorder with single episode, in remission (HCC) (CMS/HCC); Mixed hyperlipidemia (CMS/HCC); Vitamin D deficiency; Environmental and seasonal allergies; Hypothyroidism (acquired) (CMS/HCC); Gastroesophageal reflux disease, unspecified whether esophagitis present; Anxiety and depression (CMS/HCC); MARY (generalized anxiety disorder) (CMS/HCC); Seizures (CMS/HCC); Simple chronic bronchitis ([facility]/HCC) Social History Tobacco Use Types Packs/Day Years [...] 01/13/2025 1:00 PM EDT [facility] [address] [place] [address] Minda Yeboah NP [address] [place] [address] documented as of this encounter Visit Diagnoses Diagnosis Other chronic pain- Primary Osteoporosis, unspecified osteoporosis type, unspecified pathological fracture presence (CMS/HCC) Major depressive disorder with single episode, in remission (HCC) (CMS/HCC) Mixed hyperlipidemia (CMS/HCC) Mixed hyperlipidemia Vitamin D deficiency Environmental and seasonal allergies Hypothyroidism (acquired) (CMS/HCC) Unspecified hypothyroidism Gastroesophageal reflux disease, unspecified whether esophagitis present Anxiety and depression (CMS/HCC) MARY (generalized anxiety disorder) (CMS/HCC) Generalized anxiety disorder Seizures (CMS/HCC) Other convulsions Simple chronic bronchitis ([facility]/HCC) Simple chronic bronchitis documented in this encounter Care Teams Supervisor Reclamation Relationship Specialty Start Date End Date Tony Mathur MD [address] [place] [address] PCP - General Family Medicine 09/19/23 Minda Yeboah NP [address] [place] [address] Referring Physician Nurse Practitioner 02/10/23 Minda Yeboah NP [address] [place] [address] Nurse Practitioner Family Medicine 09/19/23 documented as of this encounter
--- OUTSIDE RECORDS SUMMARY | 2025-01-01 12:42 | XMS_ITS | Encounter Summary ---
Author Organization [facility] Address [address] [facility] [place] [address] Care Team Providers Care Telecommunications Officer Name Role Phone Minda Yeboah NP Unavailable [phone] Tony Mathur MD Primary Care Provider [phone] Minda Yeboah NP Unavailable [phone] Encounter Details Date Type Department Care Team (Late st Contact Info) Description 12/26/2023 Clinisync Result Encounter [facility] External Department Unsolicited Minda Yeboah NP [address] [place] [address] Social History Tobacco Use Types [...] Visit [facility] [address] [place] [address] Minda Yeboah NP [address] [place] [address] (work) documented as of this encounter Procedures Procedure Name Priority Date/Time Associated Diagnosis Comments US THYROID 12/26/2023 12:39 PM EDT documented in this encounter Results * US thyroid (12/26/2023 12:39 PM EDT) Anatomical Region Laterality Modality Head, Neck Ultrasound 12/26/2023 12:3 9 PM EDT Narrative 12/26/2023 12:41 [place] [address] Ultrasound Report Signed Patient: BENTON CARRERO MR#: [id number] : 1965 Acct:[id number] Age/Sex: 58 / F ADM Date: 12/26/23 Loc: US Attending Dr: Minda Yeboah NP Ordering Physician: Minda Yeboah NP Date of Service: 12/26/23 Procedure(s): US thyroid Accession Number(s): [id number] cc: Minda Yeboah NP [address] [address] Patient Name: BENTON CARRERO MRN: [id number] date: 1965 Sex: F Assigned Patient Location: US Current Patient Location: US Accession/Order Number: [id number] Exam Date: 12/26/2023 11:37 Report Date: 12/26/2023 [...] Signed By: 12/26/23 1241 DD/ 1239 TD/TT: Interventional Neuroradiologist: Procedure Note Radiology, Radiologist, MD - 12/26/2023 [place] [address] Ultrasound Report Signed Patient: BENTON CARRERO MMR#: [id number] : 1965Acct:[id number] Age/Sex: 58 / FADM Date: 12/26/23 Loc: US Attending Dr: Minda Yeboah NP Ordering Physician: Minda Yeboah NP Date of Service: 12/26/23 Procedure(s): US thyroid Accession Number(s): [id number] cc: Minda Yeboah NP The [place] [id number] Patient Name: BENTON CARRERO MRN: [id number] date: 1965 Sex: F Assigned Patient Location: US Current Patient Location: US Accession/Order Number: [id number] Exam Date: 12/26/2023 11:37 Report Date: 12/26/2023 [...] M.D. Signed By:12/26/23 1241 DD/ 1239 TD/TT: Interventional Neuroradiologist: us Minda Yeboah NP IMG US PROCEDURES Final Result documented in this encounter Visit Diagnoses Not on filedocumented in this encounter Care Teams Telecommunications Officer Relationship Specialty Start Date End Date Tony Mathur MD [address] [place] [address] PCP - General Family Medicine 09/19/23 Minda Yeboah NP [address] [place] [address] Referring Physician Nurse Practitioner 02/10/23 Minda Yeboah NP [address] [place] [address] Nurse Practitioner Family Medicine 09/19/23 documented as of this encounter
--- OUTSIDE RECORDS SUMMARY | 2025-01-01 12:42 | XMS_ITS | Encounter Summary ---
Author Organization [facility] Address [address] [place] [address] Care Team Providers Care It Consulting Director Name Role Phone Minda Yeboah NP Unavailable [phone] Tony Mathur MD Primary Care Provider [phone] Minda Yeboah NP Unavailable [phone] Encounter Details Date Type Department Care Team (Late Contact Info) Description 12/18/2024 External Result Encounter [facility] External Department Unsolicited Minda Yeboah NP [address] [place] [address] Social History Tobacco Use Types [...] Visit [facility] [address] [place] [address] Minda Yeboah NP [address] [place] [address] documented as of this encounter Procedures Procedure Name Priority Date/Time Associated Diagnosis Comments AEROBIC CARLOS CHARGE (NMIC56) Routine 12/18/2024 3:32 PM EDT CULTURE, URINE, ROUTINE Routine 12/18/2024 3:32 PM EDT documented in this encounter Results * (ABNORMAL) AEROBIC CARLOS CHARGE (NMIC56) (12/18/2024 3:32 PM EDT) AMIKACIN <16(S) 12/21/2024 8:57 AM EDT [facility] AMOXACILLIN/K CLAVULANATE <8/4(S) 12/21/2024 8:57 AM EDT [facility] AMPICILLIN <8(S) 12/21/2024 8:57 AM EDT [facility] AMPICILLIN/SULBACT AM <4/2(S) 12/21/2024 8:57 AM EDT [facility] AZTREONAM <4(S) 12/21/2024 8:57 AM EDT [facility] CEFAZOLIN <2(S) 12/21/2024 8:57 AM EDT [facility] CEFEPIME <2(S) 12/21/2024 8:57 AM EDT [facility] CEFTAZIDIME <1(S) 12/21/2024 8:57 AM EDT [facility] CEFTAZIDIME/AVIBAC HORVATH <4(S) 12/21/2024 8:57 AM EDT [facility] CEFTOLOZANE/TAZOBA CTAM <2(S) 12/21/2024 8:57 AM EDT [facility] CEFTRIAXONE <1(S) 12/21/2024 8:57 AM EDT [facility] CEFUROXIME <4(S) 12/21/2024 8:57 AM EDT [facility] CIPROFLOXACIN <0.25(S) 12/21/2024 8:57 AM EDT [facility] ERTAPENEM <0.5(S) 12/21/2024 8:57 AM EDT [facility] GENTAMICIN <2(S) 12/21/2024 8:57 AM EDT [facility] LEVOFLOXACIN <0.5(S) 12/21/2024 8:57 AM EDT [facility] MEROPENEM <1(S) 12/21/2024 8:57 AM EDT [facility] MEROPENEM/VABORBAC HORVATH <2(S) 12/21/2024 8:57 AM EDT [facility] NITROFURANTOIN <32(S) 12/21/2024 8:57 AM EDT [facility] PIPERACILLIN/TAZOB ACTAM <8(S) 12/21/2024 8:57 AM EDT [facility] TETRACYCLINE <4(S) 12/21/2024 8:57 AM EDT [facility] TIGECYCLINE <2(S) 12/21/2024 8:57 AM EDT [facility] TOBRAMYCIN <2(S) 12/21/2024 8:57 AM EDT [facility] TRIMETHOPRIM/SULFA METHOXAZOLE <0.5/9.5( S) 12/21/2024 8:57 AM EDT [facility] Urine Urine specimen obtained by clean catch procedure / Unknown 12/18/2024 3:32 PM EDT 12/19/2024 2:40 PM EDT Minda Yeboah [facility] Final Result Performing Organization Address [facility] de Phone Number [facility] [address] [place] [address], [facility] [address] [place] [address] * Urine culture (12/18/2024 3:32 PM EDT) [facility] ORGANISM Escherichia coli 12/21/2024 8:57 AM EDT [facility] COLONY COUNT 75,000 12/21/2024 8:57 AM EDT [facility] Urine Urine specimen obtained by clean catch procedure / Unknown 12/18/2024 3:32 PM EDT 12/19/2024 2:40 PM EDT Minda Yeboah [facility] MICROBIOLOGY - GENERAL RACHELE OMALLEY Final Result [facility] [address] [place] [address], [facility] [address] [facility] [place] [address] documented in this encounter Visit Diagnoses Not on filedocumented in this encounter Care Teams It Consulting Director Relationship Specialty Start Date End Date Tony Mathur MD [address] [place] [address] PCP - General Family Medicine 09/19/23 Minda Yeboah NP [address] [place] [address] Referring Physician Nurse Practitioner 02/10/23 Minda Yeboah NP [address] [place] [address] Nurse Practitioner Family Medicine 09/19/23 documented as of this encounter
--- NOTE | 2025-01-01 12:45 | MM_ITS ---
Patient Name: BENTON SORENSEN MR#: [id number] : 1965 Exam Date: 01/01/2025 Ordering Doctor: CHERYL AYALA CNP RADIOLOGY REPORT PROCEDURE: MM TOMOSYNTHESIS SCREENING BI COMPARISON: MM TOMOSYNTHESIS SCREENING BI, 08/17/2023. MG [facility]M CLARIBEL DIAG W CAD DIG, 01/15/2016. INDICATIONS: Screening Calculator Name NCI Breast Cancer Risk Assessment Tool 5 Year Breast Cancer Risk 1.00% Lifetime Breast Cancer Risk 6.50% Personal Breast Cancer No Personal Ovarian Cancer No Treatments None Family Cancers Mother with uterine cancer at age 20. LOCATION: [facility] BREAST COMPOSITION: The breasts are heterogeneously dense,which may obscure small masses. FINDINGS: RIGHT BREAST: No significant suspicious finding. Similar focal asymmetries are present on the right . LEFT BREAST: No significant suspicious finding. Benign-appearing calcifications are present. DIAGNOSTIC CATEGORY 2--BENIGN FINDING: RECOMMENDATIONS: ROUTINE MAMMOGRAM AND CLINICAL EVALUATION IN 12 MONTHS. PLEASE NOTE: A NORMAL MAMMOGRAM DOES NOT EXCLUDE THE POSSIBILITY OF BREAST CANCER. A CLINICALLY SUSPICIOUS PALPABLE LUMP SHOULD BE BIOPSIED. Dictated by: Benito Oliveira MD on 01/02/2025 at 09:56 Approved by: Benito Oliveira MD on 01/02/2025 at 10:02
--- NOTE | 2025-01-01 12:45 | US_ITS ---
The [address] [address] Patient Name: BENTON SORENSEN MRN: [id number] date: 1965 Sex: F Assigned Patient Location: MAMMO Current Patient Location: [facility] Accession/Order Number: [id number] Exam Date: 01/01/2025 15:06 Report Date: 01/01/2025 15:09 At the request of: RAHUL AYALA NP Procedure: US thyroid Thyroid Ultrasound HISTORY: Multiple thyroid nodules COMPARISON: 12/26/2023 The RIGHT lobe measures 4.4 x 1.5 x 1.4cm. LEFT lobe measures 3.9 x 1.2 x 1.6 cm. Isthmus has an AP dimension of 0.2cm. 5 mm right mid hypoechoic thyroid nodule redemonstrated. A 4 mm hyperechoic left superior nodule identified. No new or enlarging nodules.. No microcalcifications identified. Symmetric blood flow of the thyroid gland identified. US/US thyroid IMPRESSION: Stable subcentimeter thyroid nodules. Impression dictated by: Anam Bernal M.D. 01/01/2025 3:09 PM Dictation Location: [address] Electronically authenticated by: [id number] Y Date: 01/01/2025 15:09
== END 2025-01-01 12:40 | disposition home or self-care (01) ==
LOC: MAMMO 12:39
PROVIDERS: PCP Nurse Practitioner; Visit Provider Nurse Practitioner
DX: Z12.31 Encounter for screening mammogram for malignant neoplasm of breast (principal); M81.0 Age-related osteoporosis without current pathological fracture; E04.2 Nontoxic multinodular goiter; Z80.8 Family history of malignant neoplasm of other organs or systems; M85.80 Other specified disorders of bone density and structure, unspecified site
CPT/HCPCS: 76536; 77063; 77067; 77080

== ENCOUNTER 2025-01-07 13:26 | Outpatient (REF) | payer MEDICAID, SELFPAY ==
--- OUTSIDE RECORDS SUMMARY | 2024-12-26 20:40 | XMS_ITS | Continuity of Care Document ---
Author Organization [facility] Address [address] [place] [address] Phone Care Team Providers Care Metal Sprayer Machined Parts Name Role Phone Minda Yeboah Attending Provider [phone] Care Teams Patient Care Team Team Status: Inactive Member Role Status Dates Minda Yeboah Attending Provider Active Start: December 18, 2024 End: December 18, 2024 Chief Complaint and Reason for Visit Chief Complaint Admit Date Unknown December 18, 2024 3:32p m Social History Smoking Status Unknown if ever smoked Observation Status Observation Response Date of Response Patient Sex Female December 20, 2024 1 2:06am Assigned Sex Female November 01 Procedures Procedure Date Performed Status Urine Culture December 18, 2024 active Insurance Providers Guarantor Tanja Carrero Address [address] [facility] [address] Contact Info. Home Phone: Payer Policy Id Coverage Id Subscriber's Name Subscriber Id Effective Date Expiration Date Medicaid [id number] Encounters Encounter Location(s) Arrival/Admit Date Discharge/Depart Date Provider(s) Departed Referred [facility] December 18, 2024 3:32pm December 18, 2024 3:33pm ROSENDO Wolfe Plan of Treatment Future Tests Future scheduled test information is unavailable Pending Tests Pending diagnostic test information is unavailable Future Visits Future appointment information is unavailable Referrals to Other Providers Referral information is unavailable Future Procedures Procedure Name Ordered Date Scheduled Date Urine Culture December 19, 2024 2:40pm December 18, 2024 3:32pm Future Medications Future medication information is unavailable Patient Instructions Patient instructions are unavailable
--- OUTSIDE RECORDS SUMMARY | 2025-01-07 13:30 | XMS_ITS | Encounter Summary ---
Author Organization [facility] Address [address] [facility] [place] [address] Care Team Providers Care Beater Out Leveling Machine Name Role Phone Minda Yeboah NP Unavailable [phone] Tony Mathur MD Primary Care Provider [phone] Minda Yeboah NP Unavailable [phone] Encounter Details Date Type Department Care [...] [facility] [address] [place] [address] Minda Yeboah NP [address] [place] [address] documented as of this encounter Procedures Procedure Name Priority Date/Time Associated Diagnosis Comments XR CERVICAL SPINE 5V 12/19/2023 11:16 AM EDT documented in this encounter Results * XR CERVICAL SPINE 5V (12/19/2023 11:16 AM EDT) Anatomical Region Laterality Modality Other 12/19/2023 11:1 6 AM EDT Narrative 12/19/2023 11:[place] [address] XRay Report Signed Patient: BENTON CARRERO MR#: [id number] : 1965 Acct:[id number] Age/Sex: 58 / F ADM Date: 12/18/23 Loc: RAD Attending Dr: Non-Staff Physician Kenneth Ordering Physician: PhysicianBrittaStaff Kenneth Date of Service: 12/18/23 Procedure(s): XR cervical spine 5V Accession Number(s): [id number] cc: Minda Yeboah [employer] RN; PhysicianBrittaStaff Kenneth [place] [id number] Patient Name: BENTON CARRERO MRN: [id number] date: 1965 Sex: F Assigned Patient Location: [facility] Current Patient Location: LAB Accession/Order Number: [id number] Exam Date: 12/18/2023 15:30 Report Date: 12/19/2023 [...] Signed By: 12/19/23 1119 DD/ 15 TD/TT: Public Health Technician: Procedure Note Radiology, Radiologist, - 12/19/2023 The [place] [id number] XRay Report Signed Patient: BENTON CARRERO MMR#: [id number] : 1965Acct:[id number] Age/Sex: 58 / FADM Date: 12/18/23 Loc: RAD Attending Dr: Non-Staff Physician Kenneth Ordering Physician: PhysicianNon-Staff Kenneth Date of Service: 12/18/23 Procedure(s): XR cervical spine 5V Accession Number(s): [id number] cc: Minda Yeboah NP; PhysicianLatoya M.D. The [place] [address]3511 Patient Name: BENTON CARRERO MRN: [id number] date: 1965 Sex: F Assigned Patient Location: [facility] Current Patient Location: LAB Accession/Order Number: [id number] Exam Date: 12/18/2023 15:30 Report Date: 12/19/2023 [...] M.D. Signed By:12/19/23 1119 DD/ 15 TD/TT: Public Health Technician: Generic External Data Provider [facility] Final Result documented in this encounter Visit Diagnoses Not on filedocumented in this encounter Care Teams Beater Out Leveling Machine Relationship Specialty Start Date End Date Tony Mathur MD [address] [place] [address] PCP - General Family Medicine 09/19/23 Minda Yeboah NP [address] [place] [address] Referring Physician Nurse Practitioner 02/10/23 Minda Yeboah NP [address] [place] [address] Nurse Practitioner Family Medicine 09/19/23 documented as of this encounter
--- OUTSIDE RECORDS SUMMARY | 2025-01-07 13:30 | XMS_ITS | Encounter Summary ---
Author Organization [facility] Address [address] [facility] [place] [address] Care Team Providers Care Box Builder Name Role Phone Minda Yeboah NP Unavailable [phone] Tony Mathur MD Primary Care Provider [phone] Minda Yeboah NP Unavailable [phone] Encounter Details Date Type Department Care Team (Late st Contact Info) Description 12/26/2023 Clinisync Result Encounter [facility] External Department Unsolicited Minda Yeboah NP [address] [place] [address] Social History Tobacco Use Types [...] Visit [facility] [address] [place] [address] Minda Yeboah NP [address] [place] [address] (work) documented as of this encounter Procedures Procedure Name Priority Date/Time Associated Diagnosis Comments US THYROID 12/26/2023 12:39 PM EDT documented in this encounter Results * US thyroid (12/26/2023 12:39 PM EDT) Anatomical Region Laterality Modality Head, Neck Ultrasound 12/26/2023 12:3 9 PM EDT Narrative 12/26/2023 12:41 [place] [address] Ultrasound Report Signed Patient: BENTON CARRERO MR#: [id number] : 1965 Acct:[id number] Age/Sex: 58 / F ADM Date: 12/26/23 Loc: US Attending Dr: Minda Yeboah NP Ordering Physician: Minda Yeboah NP Date of Service: 12/26/23 Procedure(s): US thyroid Accession Number(s): [id number] cc: Minda Yeboah NP [address] [address] Patient Name: BENTON CARRERO MRN: [id number] date: 1965 Sex: F Assigned Patient Location: US Current Patient Location: US Accession/Order Number: [id number] Exam Date: 12/26/2023 11:37 Report Date: 12/26/2023 [...] Signed By: 12/26/23 1241 DD/ 1239 TD/TT: Putty Worker: Procedure Note Radiology, Radiologist, MD - 12/26/2023 [place] [address] Ultrasound Report Signed Patient: BENTON CARRERO MMR#: [id number] : 1965Acct:[id number] Age/Sex: 58 / FADM Date: 12/26/23 Loc: US Attending Dr: Minda Yeboah NP Ordering Physician: Minda Yeboah NP Date of Service: 12/26/23 Procedure(s): US thyroid Accession Number(s): [id number] cc: Minda Yeboah NP The [place] [id number] Patient Name: BENTON CARRERO MRN: [id number] date: 1965 Sex: F Assigned Patient Location: US Current Patient Location: US Accession/Order Number: [id number] Exam Date: 12/26/2023 11:37 Report Date: 12/26/2023 [...] M.D. Signed By:12/26/23 1241 DD/ 1239 TD/TT: Putty Worker: us Minda Yeboah NP IMG US PROCEDURES Final Result documented in this encounter Visit Diagnoses Not on filedocumented in this encounter Care Teams Box Builder Relationship Specialty Start Date End Date Tony Mathur MD [address] [place] [address] PCP - General Family Medicine 09/19/23 Mnida Yeboah NP [address] [place] [address] Referring Physician Nurse Practitioner 02/10/23 Minda Yeboah NP [address] [place] [address] Nurse Practitioner Family Medicine 09/19/23 documented as of this encounter
--- OUTSIDE RECORDS SUMMARY | 2025-01-07 13:30 | XMS_ITS | Encounter Summary ---
Author Organization [facility] Address [address] [facility] [place] [address] Care Team Providers Care Livestock Caretaker Name Role Phone Minda Yeboah MAT MAN Unavailable [phone] Tony Mathur MD Primary Care Provider [phone] Minda Yeboah MAT MAN Unavailable [phone] Encounter Details Date Type Department Care Team (Late st Contact Info) Description 12/31/2024 Telephone [facility] [address] [place] [address] Minda Yeboah MAT MAN [address] [place] [address] Social History Tobacco Use Types Packs/Day Years [...] QUIGLEY - 12/31/2024 4:30 PM EDT Text Menagerie Superintendent Hi, this is Sydney. I am just feeling of taking all the medicine and that new acid reflex medicine is not helping at all. I do not know what else to do. Give me a call back at [phone]. Oh, thank you. documented in this encounter Plan of Treatment Upcoming Encounters Date Type Department Care Team (Late st Contact Info) Description 01/13/2025 1:00 PM EDT Office Visit [facility] [address] [place] [address] Minda Yeboah NP [address] [place] [address] documented as of this encounter Visit Diagnoses Not on filedocumented in this encounter Care Teams Livestock Caretaker Relationship Specialty Start Date End Date Tony Mathur MD [address] [place] [address] PCP - General Family Medicine 09/19/23 Minda Yeboah NP [address] [place] [address] Referring Physician Nurse Practitioner 02/10/23 Minda Yeboah NP [address] [place] [address] Nurse Practitioner Family Medicine 09/19/23 documented as of this encounter
--- OUTSIDE RECORDS SUMMARY | 2025-01-07 13:30 | XMS_ITS | Clinical Summary ---
Author Organization [employer] tem Address [facility]-[id number] [address] [place] [address] Care Team Providers Care Chute Greaser Name Role Phone Unavailable Primary Care Provider [...] 10/24/2024 Telephone [facility] Department of [facility] [address] [address] Tequila Barry [facility] 10/21/2024 Telephone [facility] Department of [facility] [address] [address] Codie Hopkins [facility] 10/17/2024 12:30 PM EDT Office Visit [facility] Department of [facility] [address] [address] Cristian Szymanski MD Undifferentiated connective tissue disease [...] [facility] [address] [address] Cristian Szymanski MD [address]00 [facility] [address] [place] [address] Health Maintenance Due Date Last Done Comments Depression Screening 1979 Tobacco Screening 1979 Adult BMI Follow Up Plan 11/01/1985 DTaP,Tdap and Td Vaccines (1 - Tdap) 11/01/1986 Pap Smear 11/01/1988 Zoster (Shingles) Vaccine (1 of 2) 11/01/2017 Influenza Vaccine 03/31/2025 03/24/2015 Adult BMI Screening 10/17/2025 10/17/2024 Medical Devices Not on file Insurance [facility] MEDICAID
--- OUTSIDE RECORDS SUMMARY | 2025-01-07 13:30 | XMS_ITS | Encounter Summary ---
Author Organization [facility] Address [address] [facility] [place] [address] Care Team Providers Care Rock Contractor Name Role Phone Minda Yeboah NP Unavailable [phone] Tony Mathur MD Primary Care Provider [phone] Minda Yeboah NP Unavailable [phone] Encounter Details Date Type Department Care Team (Late st Contact Info) Description 01/01/2025 Clinisync Result Encounter [facility] External Department Unsolicited Minda Yeboah NP [address] [place] [address] Social History Tobacco Use Types [...] Visit [facility] [address] [place] [address] Minda Yeboah NP [address] [place] [address] (work) documented as of this encounter Procedures Procedure Name Priority Date/Time Associated Diagnosis Comments US THYROID 01/01/2025 3:09 PM EDT documented in this encounter Results * US thyroid (01/01/2025 3:09 PM EDT) Anatomical Region Laterality Modality Head, Neck Ultrasound 01/01/2025 3:09 PM EDT Narrative 01/01/2025 3:12 [place] [address] Ultrasound Report Signed Patient: BENTON CARRERO MR#: [id number] : 1965 Acct:[id number] Age/Sex: 59 / F ADM Date: 01/01/25 [facility] Att[facility] Dr: Minda Yeboah NP Ordering Physician: Minda Yeboah NP Date of Service: 01/01/25 Procedure(s): US thyroid Accession Number(s): [id number] cc: Minda Yeboah NP [place] [id number] Patient Name: BENTON CARRERO MRN: [id number] date: 1965 Sex: F Assigned Patient Location: [facility] Current Patient Location: [facility] Accession/Order Number: [id number] Exam Date: 01/01/2025 15:06 Report Date: 01/01/2025 15:09 At the request of: MINDA YEBOAH NP Procedure: US thyroid Thyroid Ultrasound HISTORY: Multiple thyroid nodules COMPARISON: 12/26/2023 The RIGHT lobe measures 4.4 x 1.5 x 1.4cm. LEFT lobe measures 3.9 x 1.2 x 1.6 cm. Isthmus has an AP dimension of 0.2cm. 5 mm right mid hypoechoic thyroid nodule redemonstrated. A 4 mm hyperechoic left superior nodule identified. No new or enlarging nodules.. No microcalcifications identified. Symmetric blood flow of the thyroid gland identified. US/US thyroid IMPRESSION: Stable subcentimeter thyroid nodules. Impression dictated by: Anam Bernal M.D. 01/01/2025 3:09 PM Dictation Location: [place] [address] Electronically authenticated by: [id number] Date: 01/01/2025 15:09 Dictated By: Anam Bernal D.O. Signed By: 01/01/25 1512 DD/ 1509 TD/TT: Team Leader/Research Psychologist: Procedure Note Radiology, Radiologist, MD - 01/01/2025 [place] [address] Ultrasound Report Signed Patient: BENTON CARRERO MMR#: [id number] : 1965Acct:[id number] Age/Sex: 59 / FADM Date: 01/01/25 Loc: MAMMO Attending Dr: Minda Yeboah NP Ordering Physician: Minda Yeboah NP Date of Service: 01/01/25 Procedure(s): US thyroid Accession Number(s): [id number] cc: Minda Yeboah NP [place] [address] Patient Name: BENTON CARRERO MRN: [id number] date: 1965 Sex: F Assigned Patient Location: [facility] Current Patient Location: [facility] Accession/Order Number: [id number] Exam Date: 01/01/2025 15:06 Report Date: 01/01/2025 15:09 At the request of: MINDA YEBOAH NP Procedure: US thyroid Thyroid Ultrasound HISTORY: Multiple thyroid nodules COMPARISON: 12/26/2023 The RIGHT lobe measures 4.4 x 1.5 x 1.4cm. LEFT lobe measures 3.9 x 1.2 x 1.6 cm. Isthmus has an AP dimension of 0.2cm. 5 mm right mid hypoechoic thyroid nodule redemonstrated. A 4 mmhyperechoic left superior nodule identified. No new or enlarging nodules.. No microcalcifications identified. Symmetric blood flow of the thyroid gland identified. US/US thyroid IMPRESSION: Stable subcentimeter thyroid nodules. Impression dictated by: Anam Bernal M.D. 01/01/2025 3:09 PM Dictation Location: [place] [address] Electronically authenticated by: [id number] Y Date: 5:09 Dictated By: Anam Bernal D.O. Signed By:01/01/25 1512 DD/ 1509 TD/TT: Team Leader/Research Psychologist: us Minda Yeboah HOUSEKEEPING DEPARTMENT WORKER IMG US PROCEDURES Final Result documented in this encounter Visit Diagnoses Not on filedocumented in this encounter Care Teams Rock Contractor Relationship Specialty Start Date End Date Tony Mathur MD [address] [place] [address] PCP - General Family Medicine 09/19/23 Minda Yeboah NP [address] [place] [address] Referring Physician Nurse Practitioner 02/10/23 Minda Yeboah NP [address] [place] [address] Nurse Practitioner Family Medicine 09/19/23 documented as of this encounter
--- OUTSIDE RECORDS SUMMARY | 2025-01-07 13:30 | XMS_ITS | Encounter Summary ---
Author Organization [facility] Address [facility]-[id number] [address] [place] [address] Care Team Providers Care Prospect Manager Name Role Phone Unavailable Primary Care Provider Unavailabl e Encounter Details Date Type Department Care Team (Late st Contact Info) Description 06/26/2024 Telephone [facility] [address] [address] Tequila Barry CMA Social History [...] Visit [facility] Department of [facility] [address] [address] Cristian Szymanski MD [address] [address] documented as of this encounter Visit Diagnoses Diagnosis DDD (degenerative disc disease), cervical Degeneration of cervical intervertebral disc documented in this encounter
--- OUTSIDE RECORDS SUMMARY | 2025-01-07 13:30 | XMS_ITS | Encounter Summary ---
Author Organization [facility] [employer] Address [facility]-[id number] [address] [place] [address] Care Team Providers Care Electric Distribution Engineer Name Role Phone Unavailable Primary Care Provider Unavailabl e Encounter Details Date Type Department Care Team (Late st Contact Info) Description 02/27/2023 Telephone [facility] [address] [address] Codie Hopkins CMA Social History [...] Office Visit [facility] Department of [facility] [address] [address] Cristian Szymanski MD [address] [address] documented as of this encounter Visit Diagnoses Not on filedocumented in this encounter
--- OUTSIDE RECORDS SUMMARY | 2025-01-07 13:30 | XMS_ITS | Encounter Summary ---
Author Organization [facility] Address [facility][id number] [address] [place] [address] Care Team Providers Care Case Assistant Name Role Phone Unavailable Primary Care Provider Unavailabl e Encounter Details Date Type Department Care Team (Late st Contact Info) Description 10/24/2024 Telephone [facility] Department of [facility] [address] [place] [address] Tequila Barry CMA Social History Tobacco Use [...] Visit [facility] Department of [facility] [address] [phone] Cristian Szymanski MD [address] [address] documented as of this encounter Visit Diagnoses Not on filedocumented in this encounter
--- OUTSIDE RECORDS SUMMARY | 2025-01-07 13:30 | XMS_ITS | Encounter Summary ---
Author Organization [facility] Address [address] [facility] [place] [address] Care Team Providers Care Chair Mechanic Name Role Phone Minda Yeboah NP Unavailable [phone] Tony Mathur MD Primary Care Provider [phone] Minda Yeboah NP Unavailable [phone] Encounter Details Date Type Department Care Team (Late st Contact Info) Description 08/22/2024 Orders Only [facility] [address] [place] [address] Unallocated, Noms Provider, [address] [place], [place] [address] Social History Tobacco Use Types Packs/Day Years [...] Visit [facility] [address] [place] [address] Minda Yeboah NP [address] [place] [address] documented as of this encounter Procedures Procedure [...] on filedocumented in this encounter Care Teams Chair Mechanic Relationship Specialty Start Date End Date Tony Mathur MD [address] [place] [address] PCP - General Family Medicine 09/19/23 Minda Yeboah NP [address] [place] [address] Referring Physician Nurse Practitioner 02/10/23 Minda Yeboah NP [address] [place] [address] Nurse Practitioner Family Medicine 09/19/23 documented as of this encounter
--- OUTSIDE RECORDS SUMMARY | 2025-01-07 13:30 | XMS_ITS | Encounter Summary ---
Author Organization [facility] Address [address] [facility] [place] [address] Care Team Providers Care Charhouse Worker Name Role Phone Minda Yeboah PLASMA PROCESSOR Unavailable [phone] Tony Mathur MD Primary Care Provider [phone] Minda Yeboah PLASMA PROCESSOR Unavailable [phone] Encounter Details Date Type Department Care Team (Late st Contact Info) Description 01/02/2025 Results Follow-Up [facility] [address] [place] [address] Social History Tobacco Use Types Packs/Day Years [...] [facility] [address] [place] [address] Minda Yeboah NP [address] [place] [address] documented as of this encounter Visit Diagnoses Not on filedocumented in this encounter Care Teams Charhouse Worker Relationship Specialty Start Date End Date Tony Mathur MD [address] [place] [address] PCP - General Family Medicine 09/19/23 Minda Yeboah NP [address] [place] [address] Referring Physician Nurse Practitioner 02/10/23 Minda Yeboah NP [address] [place] [address] Nurse Practitioner Family Medicine 09/19/23 documented as of this encounter
--- OUTSIDE RECORDS SUMMARY | 2025-01-07 13:30 | XMS_ITS | Encounter Summary ---
Author Organization [facility] Address [address] [place] [address] Care Team Providers Care Second Worker Name Role Phone Minda Yeboah GSE MECHANIC Unavailable [phone] Tony Mathur MD Primary Care Provider [phone] Minda Yeboah GSE MECHANIC Unavailable [phone] Reason for Visit * Reason Comments Med Change Request Encounter Details Date Type Department Care Team (Late st Contact Info) Description 07/04/2024 Refill [facility] [address] [place] [address] Minda Yeboah NP [address] [place] [address] Seizures ([facility]) Social History Tobacco Use Types Packs/Day [...] Visit [facility] [address] [place] [address] Minda Yeboah NP [address] [place] [address] documented as of this encounter Visit Diagnoses Diagnosis Seizures (CMS/HCC) Other convulsions documented in this encounter Care Teams Second Worker Relationship Specialty Start Date End Date Tony Mathur MD [address] [place] [phone] PCP - General Family Medicine 09/19/23 Minda Yeboah NP [address] [place] [address] Referring Physician Nurse Practitioner 02/10/23 Minda Yeboah NP [address] [place] [address] Nurse Practitioner Family Medicine 09/19/23 documented as of this encounter
--- OUTSIDE RECORDS SUMMARY | 2025-01-07 13:30 | XMS_ITS | Encounter Summary ---
Author Organization [facility] Address [address] [facility] [place] [address] Care Team Providers Care Architectural Draftsman Name Role Phone Minda Yeboah NP Unavailable [phone] Tony Mathur MD Primary Care Provider [phone] Minda Yeboah NP Unavailable [phone] Encounter Details Date Type Department Care Team (Late Contact Info) Description 09/28/[address] [facility] [address] [place] [address] Minda Yeboah NP [address] [place] [address] Social History Tobacco Use Types Packs/Day Years [...] 01/13/2025 1:00 PM EDT Office Visit [facility] [address] [place] [phone] Minda Yeboah NP [address] [place] [address] documented as of this encounter Procedures Procedure Name Priority Date/Time Associated Diagnosis Comments LAB COLOGUARD COLON CANCER SCREEN Routine 09/21/2023 6:48 PM EST documented in this encounter Results * Cologuard?? colon cancer screening (09/21/2023 6:48 PM EST) Stool us Minda Yeboah NP LAB MOLECULAR DIAGNOSTICS ORDER SILVA Final Result documented in this encounter Visit Diagnoses Not on filedocumented in this encounter Care Teams Architectural Draftsman Relationship Specialty Start Date End Date Tony Mathur MD [address] [place] [address] PCP - General Family Medicine 09/19/23 Minda Yeboah NP [address] [place] [address] Referring Physician Nurse Practitioner 02/10/23 Minda Yeboah NP [address] [place] [address] Nurse Practitioner Family Medicine 09/19/23 documented as of this encounter
--- OUTSIDE RECORDS SUMMARY | 2025-01-07 13:30 | XMS_ITS | Encounter Summary ---
Author Organization [facility] tem Address [id number] [address] [place] [address] Care Team Providers Care Administrative Library Assistant Name Role Phone Unavailable Primary Care Provider Unavailabl e Encounter Details Date Type Department Care Team (Late st Contact Info) Description 10/21/2024 Telephone [facility] Department of [facility] [address] [place] [address] Codie Hopkins CMA Social History Tobacco Use [...] Office Visit [facility] Department of [facility] [address] [phone] Cristian Szymanski MD [address] [address] documented as of this encounter Visit Diagnoses Not on filedocumented in this encounter
--- OUTSIDE RECORDS SUMMARY | 2025-01-07 13:30 | XMS_ITS | Encounter Summary ---
Author Organization [facility] tem Address [facility]-[id number] [address] [place] [address] Care Team Providers Care Food Safety Coordinator Name Role Phone Unavailable Primary Care Provider Unavailabl e Encounter Details Date Type Department Care Team (Late st Contact Info) Description 12/22/2023 Orders Only [facility] External Film Storage [facility] [place] [address] Transcribe, Orders Support User Pain [...] Office Visit [facility] Department of [facility] [address] [phone] Cristian Szymanski MD [address] [address] documented as of this encounter Results * X-ray spine cervical 4 or 5 views (12/18/2023 3:30 PM EDT) us Scanning Provider External IMG DIAGNOSTIC IMAGIN G ORDERABLES Final Result documented in this encounter Visit Diagnoses Diagnosis Pain- Primary Generalized pain documented in this encounter
--- OUTSIDE RECORDS SUMMARY | 2025-01-07 13:30 | XMS_ITS | Encounter Summary ---
Author Organization [facility] Address [address] [place] [address] Care Team Providers Care Record Changer Name Role Phone Tony Mathur MD Primary Care Provider [phone] Minda Yeboah HIDE SHAKER Unavailable [phone] Tony Mathur MD Primary Care Provider [phone] Minda Yeboah HIDE SHAKER Unavailable [phone] Encounter Details Date Type Department Care Team (Late st Contact Info) Description 08/17/2023 Clinisync Result Encounter [facility] External Department Unsolicited Mnida Yeboah NP [address] [place] [address] Social History Tobacco Use Types Packs/Day [...] Visit [facility] [address] [place] [address] Minda Yeboah NP [address] [place] [phone] documented as of this encounter Procedures Procedure Name Priority Date/Time Associated Diagnosis Comments MM TOMOSYNTHESIS SCREENING BI 08/17/2023 3:41 PM EST documented in this encounter Results * MM TOMOSYNTHESIS SCREENING BI (08/17/2023 3:41 PM EST) Anatomical Region Laterality Modality Other 08/17/2023 3:41 PM EST Narrative 08/17/2023 3:42 [place] [address] Mammography Report Signed Patient: BENTON CARRERO MR#: [id number] : 1965 Acct:[id number] Age/Sex: 57 / F ADM Date: 08/17/23 Loc: INF Attending Dr: Minda Yeboah NP Ordering Physician: Minda eYboah NP Results: Date of Service: 08/17/23 Follow Up: Procedure(s): MM tomosynthesis screening BI Accession Number(s): [id number] cc: Minda Yeboah NP Patient Name: BENTON CARRERO MR#: [id number] : 1965 Exam Date: 08/17/2023 Ordering Doctor: [...] uterine cancer at age 22. LOCATION: [facility] BREAST COMPOSITION: Heterogeneously dense,which may obscure [...] Signed By: 08/17/23 1542 DD/ 154 TD/TT: Turret Press Operator: Procedure Note Radiology, Radiologist, - 08/17/2023 [place] [address] Mammography Report Signed Patient: BENTON CARRERO MMR#: [id number] : 1965Acct:[id number] Age/Sex: 57 / FADM Date: 08/17/23 Loc: INF Attending Dr: Minda Yeboah NP Ordering Physician: Minda Yeboah NPResults: Date of Service: 08/17/23Follow Up: Procedure(s): MM tomosynthesis screening BI Accession Number(s): [id number] cc: Minda Yeboah NP Patient Name: BENTON CARRERO MR#: [id number] : 1965 Exam Date: 08/17/2023 Ordering Doctor: CHERYL Yeboah LAWN CARETAKER RADIOLOGY REPORT PROCEDURE: MM TOMOSYNTHESIS SCREENING BI COMPARISON: MG MAMM CLARIBEL DIAG W CAD DIG, 01/15/2016. INDICATIONS: Screening Calculator Name NCI Breast Cancer Risk Assessment Tool 5 Year Breast Cancer Risk 1.00% Lifetime Breast Cancer Risk 6.70% Personal Breast Cancer No Personal Ovarian Cancer No Treatments None Family Cancers Mother with uterine cancer at age 20. LOCATION: [facility] BREAST COMPOSITION: Heterogeneously dense,which may obscure [...] M.D. Signed By:08/17/23 1542 DD/ 154 TD/TT: Turret Press Operator: Minda Yeboah NP [facility] Final Result documented in this encounter Visit Diagnoses Not on filedocumented in this encounter Care Teams Record Changer Relationship Specialty Start Date End Date Tony Mathur MD PCP - General Family Medicine 02/10/23 09/18/23 Tony Mathur MD [address] [place] [address] PCP - General Family Medicine 09/19/23 Minda Yeboah NP [address] [place] [address] Referring Physician Nurse Practitioner 02/10/23 Minda Yeboah NP [address] [place] [address] Nurse Practitioner Family Medicine 09/19/23 documented as of this encounter
--- OUTSIDE RECORDS SUMMARY | 2025-01-07 13:30 | XMS_ITS | Clinical Summary ---
Author Organization Nikolay Franco [facility] Simón [facility] Address [address] [place] [address] Care Team Providers Care Intensive Care Specialist Name Role Phone Minda Yeboah APRN, NP [...] 136 - 145 mmol/L 08/21/2024 12:23 PM [facility] Potassium 4.1 3.7 - 5.3 mmol/L 08/21/2024 12:23 PM [facility] Chloride 99 98 - 107 mmol/L 08/21/2024 12:23 PM [facility] CO2 23 20 - 31 mmol/L 08/21/2024 12:23 PM [facility] Anion Gap 12 9 - 16 mmol/L 08/21/2024 12:23 PM [facility] Glucose 95 74 - 99 mg/dL 08/21/2024 12:23 PM [facility] BUN 13 6 - 20 mg/dL 08/21/2024 12:23 PM [facility] Creatinine 1.2(H) 0.50 - 0.90 mg/dL 08/21/2024 12:23 PM [facility] Est, Glom Filt Rate 54(L) >60 mL/min/1.7 3m2 08/21/2024 12:23 PM [facility] Comment: These results are not intended [...] 9 - 20 08/21/2024 12:23 PM EST [facility] Calcium 9.9 8.6 - 10.4 mg/dL 08/21/2024 12:23 PM [address] [facility] Blood BLOOD SPECIMEN / Unknown 08/21/2024 12:23 PM EST 08/21/2024 12:53 PM EST Patria Davila PA-C CHEMISTRY ORDERABLES Final Result [facility] [address] [place] [address], [facility] [phone] from Last 3 Months or Most Recently Relevant to Health Maintenance Insurance [facility] MEDICAID Advance Directives * Full Code (Latest Code Status on File) Date Activated Date Inactivated Comments 05/24/2022 12:20 PM 05/26/2022 4:23 PM * Full Code Date Activated Date Inactivated Comments 05/24/2022 12:20 PM 05/24/2022 12:20 PM * Full Code Date Activated Date Inactivated Comments 06/14/2021 9:04 PM 06/18/2021 4:14 PM Healthcare Agents on File Name Relationship Healthcare Agent [facility] Communication Juan Carrero Spouse Primary Decision Maker Care Teams Intensive Care Specialist Relationship Specialty Start Date End Date Minda Yeboah, [employer] LAW CLERK - BUSINESS OFFICE MANAGER [address] [place] [address] PCP - General Nurse Practitioner 06/18/21
--- OUTSIDE RECORDS SUMMARY | 2025-01-07 13:30 | XMS_ITS | Encounter Summary ---
Author Organization [facility] Address [address] [facility] [place] [address] Care Team Providers Care Supervisor Dental Laboratory Name Role Phone Tony Mathur MD Primary Care Provider [phone] Minda Yeboah MOTOR INSPECTION MECHANIC Unavailable [phone] Tony Mathur MD Primary Care Provider [phone] Minda Yeboah MOTOR INSPECTION MECHANIC Unavailable [phone] Encounter Details Date Type Department Care Team (Late st Contact Info) Description 08/21/2023 Orders Only [facility] [address] [place] [address] Minda Yeboah NP [address] [place] [phone] Social History Tobacco Use Types Packs/Day Years [...] PM EDT Office Visit [facility] [address] [place] [phone] Minda Yeboah NP [address] [place] [phone] documented as of this encounter Procedures Procedure Name Priority Date/Time Associated Diagnosis Comments MAMM BILATERAL DIAG W/CAD (D) Routine 08/17/2023 10:50 AM EST documented in this encounter Results * MAMM BILATERAL DIAG W/CAD (D) (08/17/2023 10:50 AM EST) Anatomical Region Laterality Modality Radiographic Dawn ging Minda Yeboah MOTOR INSPECTION MECHANIC IMG XR PROCEDURES Final Result documented in this encounter Visit Diagnoses Not on filedocumented in this encounter Care Teams Supervisor Dental Laboratory Relationship Specialty Start Date End Date Tony Mathur MD PCP - General Family Medicine 02/10/23 09/18/23 Tony Mathur MD [address] [place] [phone] PCP - General Family Medicine 09/19/23 Minda Yeboah NP [address] [place] [phone] Referring Physician Nurse Practitioner 02/10/23 Minda Yeboah NP [address] [place] [phone] Nurse Practitioner Family Medicine 09/19/23 documented as of this encounter
--- OUTSIDE RECORDS SUMMARY | 2025-01-07 13:30 | XMS_ITS | Encounter Summary ---
Author Organization [facility] Address [address] [facility] [place] [address] Care Team Providers Care Drill Hand Name Role Phone Tony Mathur MD Primary Care Provider [phone] Minda Yeboah ROCKET ENGINE TESTER Unavailable [phone] Tony Mathur MD Primary Care Provider [phone] Minda Yeboah ROCKET ENGINE TESTER Unavailable [phone] Encounter Details Date Type Department Care Team (Late st Contact Info) Description 07/19/2023 Abstract [facility] [address] [place] [phone] Minda Yeboah NP [address] [place] [address] Social History Tobacco Use Types Packs/Day Years [...] 01/13/2025 1:00 PM EDT Office Visit [facility] [address] [place] [phone] Minda Yeboah NP [address] [place] [phone] documented as of this encounter Visit Diagnoses Not on filedocumented in this encounter Care Teams Drill Hand Relationship Specialty Start Date End Date Tony Mathur MD PCP - General Family Medicine 02/10/23 09/18/23 Tony Mathur MD [address] [place] [address] PCP - General Family Medicine 09/19/23 Minda Yeboah NP [address] [place] [address] Referring Physician Nurse Practitioner 02/10/23 Minda Yeboah NP [address] [place] [address] Nurse Practitioner Family Medicine 09/19/23 documented as of this encounter
--- OUTSIDE RECORDS SUMMARY | 2025-01-07 13:30 | XMS_ITS | Encounter Summary ---
Author Organization [facility] Address [address] [facility] [place] [address] Care Team Providers Care Investigation Specialist Name Role Phone Tony Mathur MD Primary Care Provider [phone] Minda Yeboah AUTOMATIC COIN MACHINE MECHANIC Unavailable [phone] Tony Mathur MD Primary Care Provider [phone] Minda Yeboah AUTOMATIC COIN MACHINE MECHANIC Unavailable [phone] Reason for Visit * Reason Comments Med Refill Encounter Details Date Type Department Care Team (Late Contact Info) Description 07/27/2023 Refill [facility] [address] [place] [address] Minda Yeboah NP [address] [place] [address] Mixed hyperlipidemia (CMS/HCC) (Primary Dx); Elevated serum [...] 01/13/2025 1:00 PM EDT Office Visit [facility] [address] [place] [address] Minda Yeboah NP [address] [place] [phone] documented as of this encounter Visit Diagnoses Diagnosis Mixed hyperlipidemia (CMS/HCC)- Primary Mixed hyperlipidemia Elevated serum creatinine Other nonspecific findings on examination of blood documented in this encounter Care Teams Investigation Specialist Relationship Specialty Start Date End Date Tony Mathur MD PCP - General Family Medicine 02/10/23 09/18/23 Tony Mathur MD [address] [place] [address] PCP - General Family Medicine 09/19/23 Minda Yeboah NP [address] [place] [address] Referring Physician Nurse Practitioner 02/10/23 Minda Yeboah NP [address] [place] [address] Nurse Practitioner Family Medicine 09/19/23 documented as of this encounter
--- OUTSIDE RECORDS SUMMARY | 2025-01-07 13:30 | XMS_ITS | Clinical Summary ---
Author Organization [facility] Address [address] [place] [address] Care Team Providers Care Warehouse Representative Name Role Phone Minda Yeboah NP Unavailable [phone] Tony Mathur MD Primary Care Provider [phone] Minda Yeboah DECORATOR CONSULTANT Unavailable [phone] Allergies No known active allergies Medications [...] of the risks of continued smoking: stroke, ME, all forms of cancer, lung disease, and [...] of the risks of continued smoking: stroke, ME, all forms of cancer, lung disease, and [...] fu US thyroid, will fax order to [facility] for this to be scheduled Thyroid [...] OARRS reviewed #1: Multiple thyroid nodules 08/28/2023 Overview (01/01/2025): US thyroid: 01/01/25: stable Assessment & Plan (12/17/2024 4:42 PM EDT): [...] of the risks of continued smoking: stroke, ME, all forms of cancer, lung disease, and [...] of the risks of continued smoking: stroke, ME, all forms of cancer, lung disease, and [...] of the risks of continued smoking: stroke, ME, all forms of cancer, lung disease, and [...] of the risks of continued smoking: stroke, ME, all forms of cancer, lung disease, and [...] Encounters Date Type Department Care Team Description 01/02/2025 Results [facility]Up [facility] [address] [place] [address] 01/02/2025 Results Follow-Up [facility] [address] [place] [address] 01/02/2025 Clinisync Result Encounter [facility] External Department Unsolicited Minda Yeboah NP 01/01/2025 Clinisync Result Encounter [facility] External Department Unsolicited Minda Yeboah, ISA 12/31/2024 Telephone [facility] [address] [place] [address] Minda Yeboah, ISA 12/24/2024 Orders Only [facility] [address] [place] [address] Minda Yeboah, DECORATOR CONSULTANT 12/22/2024 Refill [facility] [address] [place] [address] Minda Yeboah, DECORATOR CONSULTANT UTI (urinary tract infection), uncomplicated (Primary Dx) 12/20/2024 Refill [facility] [address] [place] [address] Minda Yeboah, DECORATOR CONSULTANT Mixed hyperlipidemia (CMS/HCC) (Primary Dx); Hypomagnesemia 12/19/2024 Refill [facility] [address] [place] [phone] Minda Yeboah NP Other chronic pain (Primary [...] chronic bronchitis (CMS/HCC) 12/19/2024 Orders Only [facility] [address] [place] [phone] Mnida Yeboah NP Hypercalcemia (Primary Dx) 12/19/2024 Telephone [facility] [address] [place] [phone] Minda Yeboah NP 12/18/2024 External Result Encounter [facility] External Department Unsolicited Minda Yeboah NP 12/18/2024 Clinisync Result Encounter [facility] External Department Unsolicited Minda Yeboah NP 12/17/2024 4:00 PM EDT Office Visit [facility] [address] [place] [phone] Minda Yeboah NP Hematemesis, unspecified whether nausea present (Primary Dx); Gastroesophageal reflux disease, unspecified whether esophagitis present; Rheumatoid arthritis with positive rheumatoid factor, involving unspecified site ([facility]/HCC); Cigarette nicotine dependence without complication; Encounter for screening mammogram for malignant neoplasm of breast; Diarrhea, unspecified type; Multiple thyroid nodules ([facility]/HCC); Obesity with body mass index (BMI) of 30.0 to 39.9 12/17/2024 Orders Only [facility] [address] [place] [phone] Minda Yeboah NP Multiple thyroid nodules (CMS/HCC) (Primary Dx) 10/14/2024 2:20 PM EDT Office Visit [facility] [address] [place] [address] Minda Yeboah NP Hypothyroidism (acquired) (CMS/HCC) (Primary Dx); Rheumatoid arthritis, unspecified (CMS/HCC); Chronic kidney disease, stage 3a (HCC) (CMS/HCC); Seizures (CMS/HCC); Gastroesophageal reflux disease, unspecified whether esophagitis present; Age-related osteoporosis without current pathological fracture ([facility]/HCC); Cigarette nicotine dependence without complication; MARY (generalized anxiety disorder) ([facility]); Hypomagnesemia; Migraine without status migrainosus, not intractable, unspecified migraine type (CMS/HCC); Mild episode of recurrent major depressive disorder (HCC) ([facility]); Mixed hyperlipidemia (CMS/HCC) ; Osteoporosis, unspecified osteoporosis type, unspecified pathological fracture presence ([facility]); Major depressive disorder with single episode, in remission ([facility]) ([facility]); Vitamin D deficiency; Environmental and seasonal allergies; Anxiety and depression ([facility]); Simple chronic bronchitis ([facility]) ; Insomnia, unspecified type 10/14/2024 Bamboo flowsheet [facility] [address] [place] [address] Minda Yeboah NP from Last 3 Months Immunizations Immunization Administration [...] 1:00 PM EDT Office Visit [facility] [address] [place] [address] Minda Yeboah NP [address] [place] [address] Health Maintenance Due Date Last Done Comments CT Colonography 1965 FIT 1965 FOBT 1965 Lung Cancer Screening Shared Decision Making 1965 Sigmoidoscopy 1967 HPV/Cotest 11/01/1997 Colonoscopy 12/18/2019 12/17/2009 Mammogram 01/02/2026 01/02/2025, 07/31, 08/17/2023 Cervical Cancer Screening 09/19/2026 Pap Smear 09/19/2026 09/19/2023 (Lynne ent Refused), 11/25/2009 Colorectal Cancer Screening 09/21/2026 FIT-DNA 09/21/2026 09/21/2023, 04/14/2023 Influenza Vaccine Discontinued 03/24/2015 Procedures Procedure Name Priority Date/Time Associated Diagnosis Comments MM TOMOSYNTHESIS SCREENING BI 01/02/2025 10:03 AM EDT US THYROID 01/01/2025 3:09 PM EDT SCANNED LABS Routine 12/24/2024 3:23 PM EDT [...] PM EDT [facility] CMP (CMP) (FOR [facility]OTE [facility] USE) Routine 12/18/2024 3:42 PM EDT MHPT DIFFERENTIAL Routine 12/18/2024 3:4 2 PM EDT ALL CBC WITH AUTO DIFF Routine 3:42 PM EDT AEROBIC CARLOS CHARGE (NMIC56) Routine 12/18/2024 3:32 PM EDT [place] [facility] Routine 12/18/2024 3:32 PM EDT TB[facility] URINE MICROSCOPIC ONLY Routine 12/18/2024 3:32 PM EDT TBH UA (CLEAN/CATCH) MICROSCOPIC IF INDICATE Routine 12/18/2024 3:32 PM EDT CULTURE, URINE, ROUTINE Routine 12/18/2024 3:32 PM EDT LAB COLOGUARD COLON CANCER SCREEN Routine 09/21/2023 6:48 PM EST from Last 3 Months or Most Recently Relevant to Health Maintenance Results * MM TOMOSYNTHESIS SCREENING BI (01/02/2025 10:03 AM EDT) Anatomical Region Laterality Modality Other 01/02/2025 10:0 3 AM EDT Narrative 01/02/2025 10:04 [place] [address] Mammography Report Signed Patient: BENTNO CARRERO MR#: [id number] : 1965 Acct:[id number] Age/Sex: 59 / F ADM Date: 01/01/25 Loc: MAMMO Attending Dr: Minda Yeboah NP Ordering Physician: Minda Yeboah NP Results: Date of Service: 01/01/25 Follow Up: Procedure(s): MM tomosynthesis screening BI Accession Number(s): [id number] cc: Minda Yeobah NP Patient Name: BENTON CARRERO MR#: [id number] : 1965 Exam Date: 01/01/2025 Ordering Doctor: CHERYL YEBOAH CNP RADIOLOGY REPORT PROCEDURE: MM TOMOSYNTHESIS SCREENING BI COMPARISON: MM TOMOSYNTHESIS SCREENING BI, 08/17/2023. MG MAMM CLARIBEL DIAG W CAD DIG, 01/15/2016. INDICATIONS: Screening Calculator Name NCI Breast Cancer Risk Assessment Tool 5 Year Breast Cancer Risk 1.00% Lifetime Breast Cancer Risk 6.50% Personal Breast Cancer No Personal Ovarian Cancer No Treatments None Family Cancers Mother with uterine cancer at age 20. LOCATION: [facility] BREAST COMPOSITION: The breasts are heterogeneously dense,which may obscure small masses. FINDINGS: RIGHT BREAST: No significant suspicious finding. Similar focal asymmetries are present on the right . LEFT BREAST: No significant suspicious finding. Benign-appearing calcifications are present. DIAGNOSTIC CATEGORY 2--BENIGN FINDING: RECOMMENDATIONS: ROUTINE MAMMOGRAM AND CLINICAL EVALUATION IN 12 MONTHS. PLEASE NOTE: A NORMAL MAMMOGRAM DOES NOT EXCLUDE THE POSSIBILITY OF BREAST CANCER. A CLINICALLY SUSPICIOUS PALPABLE LUMP SHOULD BE BIOPSIED. Dictated by: Benito Oliveira MD on 01/02/2025 at 09:56 Approved by: Benito Oliveira MD on 01/02/2025 at 10:02 Dictated By: Benito Oliveira M.D. Signed By: 01/02/25 1004 DD/ 1003 TD/TT: Cow Buyer: Procedure Note Radiology, Radiologist, MD - 01/02/2025 [place] [address] Mammography Report Signed Patient: BENTON CARRERO MMR#: [id number] : 1965Acct:[id number] Age/Sex: 59 / FADM Date: 01/01/25 Loc: MAMMO Attending Dr: Minda Yeboah DECORATOR CONSULTANT Ordering Physician: Minda Yeboah NPResults: Date of Service: 01/01/25Follow Up: Procedure(s): MM tomosynthesis screening BI Accession Number(s): [id number] cc: Minda Yeboah NP Patient Name: BENTON CARRERO MR#: [id number] : 1965 Exam Date: 01/01/2025 Ordering Doctor: CHERYL YEBOAH COMPUTER SYSTEM VALIDATION SPECIALIST RADIOLOGY REPORT PROCEDURE: MM TOMOSYNTHESIS SCREENING BI COMPARISON: MM TOMOSYNTHESIS SCREENING BI, 08/17/2023. MG MAMM BILDIAG W CAD DIG, 01/15/2016. INDICATIONS: Screening Calculator Name NCI Breast Cancer Risk Assessment Tool 5 Year Breast Cancer Risk 1.00% Lifetime Breast Cancer Risk 6.50% Personal Breast Cancer No Personal Ovarian Cancer No Treatments None Family Cancers Mother with uterine cancer at age 20. LOCATION: [facility] BREAST COMPOSITION: The breasts are heterogeneously dense,which may obscure small masses. FINDINGS: RIGHT BREAST: No significant suspicious finding. Similar focalasymmetries are present on the right . LEFT BREAST: No significant suspicious finding. Benign-appearing calcifications are present. DIAGNOSTIC CATEGORY 2--BENIGN FINDING: RECOMMENDATIONS: ROUTINE MAMMOGRAM AND CLINICAL EVALUATION IN 12 MONTHS. PLEASE NOTE: A NORMAL MAMMOGRAM DOES NOT EXCLUDE THE POSSIBILITY OFBREAST CANCER. A CLINICALLY SUSPICIOUS PALPABLE LUMP SHOULD BE BIOPSIED. Dictated by: Benito Oliveira MD on 01/02/2025 at 09:56 Approved by: Benito Oliveira MD on 01/02/2025 at 10:02 Dictated By: Benito Oliveira M.D. Signed By:01/02/25 1004 DD/ 1003 TD/TT: Cow Buyer: us Minda Yeboah NP [facility] IMAGING Final Result * US thyroid (01/01/2025 3:09 PM EDT) Anatomical Region Laterality Modality Head, Neck Ultrasound 01/01/2025 3:09 PM EDT Narrative 01/01/2025 3:12 [place] [address] Ultrasound Report Signed Patient: BENTON CARRERO MR#: [id number] : 1965 Acct:[id number] Age/Sex: 59 / F ADM Date: 01/01/25 Loc: MAMMO Attending Dr: Minda Yeboah NP Ordering Physician: Minda Yeboah NP Date of Service: 01/01/25 Procedure(s): US thyroid Accession Number(s): [id number] cc: Minda Yeboah NP [place] [address] Patient Name: BENTON CARRERO MRN: [id number] date: 1965 Sex: F Assigned Patient Location: [facility] Current Patient Location: [facility] Accession/Order Number: [id number] Exam Date: 01/01/2025 15:06 Report Date: 01/01/2025 [...] Bernal M.D. 01/01/2025 3:09 PM Dictation Location: [place] [address] Electronically authenticated by: [id number] Y Date: 01/01/2025 15:09 Dictated By: Anam Bernal D.O. Signed By: 01/01/25 1512 DD/ 1509 TD/TT: Cow Buyer: Procedure Note Radiology, Radiologist, MD - 01/01/2025 [place] [address] Ultrasound Report Signed Patient: BENTON CARRERO MMR#: [id number] : 1965Acct:[id number] Age/Sex: 59 / FADM Date: 01/01/25 Loc: MAMMO Attending Dr: Minda Yeboah NP Ordering Physician: Minda Yeboah NP Date of Service: 01/01/25 Procedure(s): US thyroid Accession Number(s): [id number] cc: Minda Yeboah NP [place] [address] Patient Name: BENTON CARRERO MRN: [id number] date: 1965 Sex: F Assigned Patient Location: [facility] Current Patient Location: [facility] Accession/Order Number: [id number] Exam Date: 01/01/2025 15:06 Report Date: 01/01/2025 [...] Bernal M.D. 01/01/2025 3:09 PM Dictation Location: [place] [address] Electronically authenticated by: [id number] Y Date: 5:09 Dictated By: Anam Bernal D.O. Signed By:01/01/25 1512 DD/ 1509 TD/TT: Cow Buyer: Minda Yeboah NP IMG US PROCEDURES Final Result * SCANNED LABS (12/24/2024 3:23 PM EDT) Only the most recent of2 resultswithin the time period is included. Minda Yeboah NP LAB CHG PERFORMABLES Final Resu lt * [facility] VITAMIN D 25 [place] (12/18/2024 3:42 PM EDT) Pathologist [facility] VITAMIN D 41.2 ng/mL TBH Comment: <20 ng/mL Vit D deficient 20-<30 ng/mL Vit D insufficient 30-100 ng/mL Vit D sufficient >100 ng/mL Potential Toxicity 12/18/2024 3:42 PM EDT 12/18/2024 3:43 PM EDT Narrative [facility] - 12/18/2024 5:26 PM EDT Minda Yeboah NP [facility] Final Result [facility] TB * (ABNORMAL) MHPT DIFFERENTIAL (12/18/2024 3:42 PM [...] 12/18/2024 4:30 PM EDT us Minda Yeboah DECORATOR CONSULTANT [facility] Final Result [facility] * (ABNORMAL) [facility] CMP (CMP) (FOR [facility] USE) (12/18/2024 3:42 PM EDT) SODIUM 133(L) 136 - 145 mmol/L TBH POTASSIUM 3.7 3.5 - 5.1 mmol/L TBH CHLORIDE 99 98 - 107 mmol/L TBH CARBON DIOXIDE 25.9 21.0 - 32.0 mmol/L TBH ANION GAP 11.8 TBH GLUCOSE 105 74 - 106 mg/dL TBH BLOOD UREA NITROGEN 6.0(L) 7.0 - 18.0 mg/dL TBH CREATININE 1.05(H) 0.55 - 1.02 mg/dL TBH TBH EGFR-AF NORWEGIAN >60 >=60 mL/min/1. 73m 2 TBH TBH EGFR-NON AF [place]GIAN 54(L) >=60 mL/min/1. 73m 2 TBH BUN [...] - 12/18/2024 4:39 PM EDT us Minda Edilia DECORATOR CONSULTANT [facility] Final Result Performing Organization Address [facility] Co de Phone Number [facility] * ALL THYROXINE (T4) FREE (12/18/2024 3:42 PM EDT) FREE T4 0.96 0.76 - 1.46 ng/dL TBH 12/18/2024 3:42 PM EDT 12/18/2024 3:43 PM EDT Narrative CLINISYNC - 12/18/2024 5:26 PM EDT us Minda Edilia DECORATOR CONSULTANT [facility]NC Final Result Performing Organization Address [facility] de Phone Number [facility]NC [facility] * ALL THYROID STIM HORMONE (12/18/2024 3:42 PM EDT) THYROID STIMULATING HORMONE 1.851 0.358 - 3.740 uIU/mL TBH 12/18/2024 3:42 PM EDT 12/18/2024 3:43 PM EDT Narrative CLINISYNC - 12/18/2024 4:39 PM EDT us Minda Yeboah DECORATOR CONSULTANT [facility] Final Result Performing Organization Address [facility] Co de Phone Number [facility] * (ABNORMAL) ALL MAGNESIUM (12/18/2024 3:42 PM EDT) MAGNESIUM 1.6(L) 1.8 - 2.4 mg/dL TBH 12/18/2024 3:42 PM EDT 12/18/2024 3:43 PM EDT Narrative CLINISYNC - 12/18/2024 4:39 PM EDT us Minda Edilia DECORATOR CONSULTANT [facility] Final Result [facility] * (ABNORMAL) ALL LIPID PROFILE (FASTING) (12/18/2024 [...] us Minda Yeboah NP [facility] Final Result [facility] * (ABNORMAL) ALL CBC WITH AUTO DIFF (12/18/2024 3:42 PM EDT) TBH WBC 6.8 4.0 - 11.0 10 3/uL TBH TBH RBC 4.05(L) 4.20 - 5.40 10 6/uL TBH TBH HGB 12.2 12.0 - 16.0 g/dL TBH TBH HCT 36.7 36.0 - 48.0 % TBH TBH MCV 90.6 81.0 - 99.0 fL TBH TBH MCH 30.1 26.7 - 34.0 pg TBH TBH MCHC 33.2 29.9 - 35.2 g/dL TBH TBH RDW 15.3(H) 11.0 - 15.0 % TBH TBH PLT 351 150 - 450 10 3/uL TBH TBH MPV 9.2(L) 9.5 - 13.5 fL [facility] 12/18/2024 3:42 PM EDT 12/18/2024 3:43 PM EDT Narrative CLINISYNC - 12/18/2024 4:30 PM EDT us Minda Yeboah DECORATOR CONSULTANT CLIN[facility]YNC Final Result [facility] * (ABNORMAL) URINE CULTURE - FR (12/18/2024 3:32 PM EDT) [facility] [place]URE [place] [facility] [place]rine Culture - FR Testing performed at [facility] URINE CULTURE - [facility] [address] [place] [address] [facility] URINE CULTURE - FR O:ESCCOL Isolated [facility] URINE CULTURE - FR Urine Culture - FR Organism Comments [facility] URINE CULTURE - FR 75,000 CFU/ML [facility] URINE CULTURE - FR Organism: 1.1 Antibiotic Interpretation CARLOS Status TB URINE CULTURE - FR Amikacin S F(S) TB URINE CULTURE - [facility] Amoxicillin/Clavul anate S F(S) TB URINE CULTURE - [facility] Ampicillin S F(S) TB URINE CULTURE - [facility] Aztreonam S F(S) TB URINE CULTURE - [facility] Ceftazidime S F(S) TB URINE CULTURE - [facility] Ceftazidime/Avibac florence S F(S) TB URINE CULTURE - [facility] Ceftolozane/Tazoba ctam S F(S) TB URINE CULTURE - [facility] Ciprofloxacin S F(S) TB URINE CULTURE - [facility] Ertapenem S F(S) TB URINE CULTURE - [facility] Gentamicin S F(S) TB URINE CULTURE - [facility] Levofloxacin S F(S) TB URINE CULTURE - [facility] Meropenem S F(S) TB URINE CULTURE - [facility] Meropenem/Vaborbac florence S F(S) TB URINE CULTURE - [facility] Nitrofurantoin S F(S) TB URINE CULTURE - [facility] Tetracycline S F(S) TB URINE CULTURE - [facility] Tigecycline S F(S) TB URINE CULTURE - [facility] Tobramycin S F(S) [...] NP LAB BLOOD ORDERABLES Final Resu lt [facility] * (ABNORMAL) AEROBIC CARLOS CHARGE (NMIC56) (12/18/2024 3:32 PM EDT) AMIKACIN <16(S) 12/21/2024 8:57 AM EDT [facility] AMOXACILLIN/K CLAVULANATE <8/4(S) 12/21/2024 8:57 AM EDT [facility] AMPICILLIN <8(S) 12/21/2024 8:57 AM EDT [facility] AMPICILLIN/SULBACT AM <4/2(S) 12/21/2024 8:57 AM EDT [facility] AZTREONAM <4(S) 12/21/2024 8:57 AM EDT [facility] CEFAZOLIN <2(S) 12/21/2024 8:57 AM EDT [facility] CEFEPIME <2(S) 12/21/2024 8:57 AM EDT [facility] CEFTAZIDIME <1(S) 12/21/2024 8:57 AM EDT [facility] CEFTAZIDIME/AVIBAC FLORENCE <4(S) 12/21/2024 8:57 AM EDT [facility] CEFTOLOZANE/TAZOBA CTAM <2(S) 12/21/2024 8:57 AM EDT [facility] CEFTRIAXONE <1(S) 12/21/2024 8:57 AM EDT [facility] CEFUROXIME <4(S) 12/21/2024 8:57 AM EDT [facility] CIPROFLOXACIN <0.25(S) 12/21/2024 8:57 AM EDT [facility] ERTAPENEM <0.5(S) 12/21/2024 8:57 AM EDT [facility] GENTAMICIN <2(S) 12/21/2024 8:57 AM EDT [facility] LEVOFLOXACIN <0.5(S) 12/21/2024 8:57 AM EDT [facility] MEROPENEM <1(S) 12/21/2024 8:57 AM EDT [facility] MEROPENEM/VABORBAC FLORENCE <2(S) 12/21/2024 8:57 AM EDT [facility] NITROFURANTOIN <32(S) 12/21/2024 8:57 AM EDT [facility] PIPERACILLIN/TAZOB ACTAM <8(S) 12/21/2024 8:57 AM EDT [facility] TETRACYCLINE <4(S) 12/21/2024 8:57 AM EDT [facility] TIGECYCLINE <2(S) 12/21/2024 8:57 AM EDT [facility] TOBRAMYCIN <2(S) 12/21/2024 8:57 AM EDT [facility] TRIMETHOPRIM/SULFA METHOXAZOLE <0.5/9.5( S) 12/21/2024 8:57 AM EDT [facility] Urine Urine specimen obtained by clean catch procedure / Unknown 12/18/2024 3:32 PM EDT 12/19/2024 2:40 PM EDT us Minda Yeboah NP [facility] Final Result [facility] [address] [place] [address], [facility] [address] [place] [address] * (ABNORMAL) [facility] URINE MICROSCOPIC ONLY (12/18/2024 [...] NONE SEEN #/LPF [facility] URINE CULTURE INDICATED YES[place] 12/18/2024 3:32 PM EDT 12/18/2024 3:43 PM EDT Narrative [facility] - 12/18/2024 4:49 PM EDT us Minda Yeboah NP [facility] Final Result Performing Organization Address [facility] de Phone Number [facility] TB * (ABNORMAL) TBH UA (CLEAN/CATCH) MICROSCOPIC IF [...] NP CLIN[facility]NC Final Result Performing Organization Address [facility] Co de Phone Number [facility] * Urine culture (12/18/2024 3:32 PM EDT) Pathologist [facility] ORGANISM Escherichia coli 12/21/2024 8:57 AM EDT [facility] COLONY COUNT 75,000 12/21/2024 8:57 AM EDT [facility] Urine Urine specimen obtained by clean catch procedure / Unknown 12/18/2024 3:32 PM EDT 12/19/2024 2:40 PM EDT Minda Yeboah NP LAB MICROBIOLOGY - GENERAL [facility] Final Result Performing Organization Address [facility] Co de Phone Number [facility] [address] [place] [address], [facility] [address] [place] [address] * Cologuard?? colon cancer screening (09/21/2023 6:48 PM EST) Stool Minda Yeboah NP LAB MOLECULAR DIAGNOSTICS ORDER SILVA Final Result from Last 3 Months or Most Recently Relevant to Health Maintenance Insurance [employer] [place]ICA[place] Care Teams Warehouse Representative Relationship Specialty Start Date End Date Tony Mathur MD [address] [place] [phone] PCP - General Family Medicine 09/19/23 Minda Yeboah NP [address] [place] [address] Referring Physician Nurse Practitioner 02/10/23 Minda Yeboah NP [address] [place] [address] Nurse Practitioner Family Medicine 09/19/23
--- OUTSIDE RECORDS SUMMARY | 2025-01-07 13:30 | XMS_ITS | Encounter Summary ---
Author Organization [facility] Address [address] [facility] [place] [address] Care Team Providers Care Is Manager Name Role Phone Minda Yeboah NP Unavailable [phone] Tony Mathur MD Primary Care Provider [phone] Minda Yeboah NP Unavailable [phone] Encounter Details Date Type Department Care Team (Late Contact Info) Description 12/24/2024 Orders Only [facility] [address] [place] [phone] Minda Yeboah NP [address] [place] [phone] Social History Tobacco Use Types Packs/Day Years [...] 01/13/2025 1:00 PM EDT Office Visit [facility] [address] [place] [phone] Minda Yeboah NP [address] [place] [address] documented as of this encounter Procedures Procedure Name Priority Date/Time Associated Diagnosis Comments SCANNED LABS Routine 12/24/2024 3:23 PM EDT SCANNED LABS Routine 12/24/2024 10:19 AM EDT documented in this encounter Results * SCANNED LABS (12/24/2024 3:23 PM EDT) us Minda Yeboah LITHOGRAPHIC ARTIST LAB CHG PERFORMABLES Final Resu lt * SCANNED LABS (12/24/2024 10:19 AM EDT) us Minda Yeboah LITHOGRAPHIC ARTIST LAB CHG PERFORMABLES Final Resu lt documented in this encounter Visit Diagnoses Not on filedocumented in this encounter Care Teams Is Manager Relationship Specialty Start Date End Date Tony Mathur MD [address] [place] [address] PCP - General Family Medicine 09/19/23 Minda Yeboah NP [address] [place] [address] Referring Physician Nurse Practitioner 02/10/23 Minda Yeboah NP [address] [place] [address] Nurse Practitioner Family Medicine 09/19/23 documented as of this encounter
--- OUTSIDE RECORDS SUMMARY | 2025-01-07 13:30 | XMS_ITS | Encounter Summary ---
Author Organization [facility] Address [address] [facility] [place] [address] Care Team Providers Care Allergy And Immunology Specialist Name Role Phone Minda Yeboah NP Unavailable [phone] Tony Mathur MD Primary Care Provider [phone] Minda Yeboah NP Unavailable [phone] Encounter Details Date Type Department Care Team (Late st Contact Info) Description 01/02/2025 Clinisync Result Encounter [facility] External Department Unsolicited Minda Yeboah NP [address] [place] [address] Social History Tobacco Use Types [...] Visit [facility] [address] [place] [id number] Minda Yeboah NP [address] [place] [address] documented as of this encounter Procedures Procedure Name Priority Date/Time Associated Diagnosis Comments MM TOMOSYNTHESIS SCREENING BI 01/02/2025 10:03 AM EDT documented in this encounter Results * MM TOMOSYNTHESIS SCREENING BI (01/02/2025 10:03 AM EDT) Anatomical Region Laterality Modality Other 01/02/2025 10:0 3 AM EDT Narrative 01/02/2025 10:04 [place] [address] Mammography Report Signed Patient: BENTON CARRERO MR#: [id number] : 1965 Acct:[id number] Age/Sex: 59 / F ADM Date: 01/01/25 Loc: MAMMO Attending Dr: Minda Yeboah NP Ordering Physician: Minda Yeboah NP Results: Date of Service: 01/01/25 Follow Up: Procedure(s): MM tomosynthesis screening BI Accession Number(s): [id number] cc: Minda Yeboah NP Patient Name: BENTON CARRERO MR#: [id number] : 1965 Exam Date: 01/01/2025 Ordering Doctor: [...] uterine cancer at age 22. LOCATION: [facility] BREAST COMPOSITION: The breasts are heterogeneously [...] Signed By: 01/02/25 1004 DD/ 1003 TD/TT: Interventional Radiologist: Procedure Note Radiology, Radiologist, MD - 01/02/2025 [place] [address] Mammography Report Signed Patient: BENTON CARRERO MMR#: [id number] : 1965Acct:[id number] Age/Sex: 59 / FADM Date: 01/01/25 Loc: MAMMO Attending Dr: Minda Yeboah NP Ordering Physician: Minda Yeboah NPResults: Date of Service: 01/01/25Follow Up: Procedure(s): MM tomosynthesis screening BI Accession Number(s): [id number] cc: Minda Yeboah NP Patient Name: BENTON CARRERO MR#: [id number] : 1965 Exam Date: 01/01/2025 Ordering Doctor: [...] uterine cancer at age 22. LOCATION: [facility] BREAST COMPOSITION: The breasts are heterogeneously [...] M.D. Signed By:01/02/25 1004 DD/ 1003 TD/TT: Interventional Radiologist: us Minda Yeboah NP [facility] Final Result documented in this encounter Visit Diagnoses Not on filedocumented in this encounter Care Teams Allergy And Immunology Specialist Relationship Specialty Start Date End Date Tony Mathur MD [address] [place] [address] PCP - General Family Medicine 09/19/23 Minda Yeboah NP [address] [place] [address] Referring Physician Nurse Practitioner 02/10/23 Minda Yeboah NP [address] [place] [address] Nurse Practitioner Family Medicine 09/19/23 documented as of this encounter
--- OUTSIDE RECORDS SUMMARY | 2025-01-07 13:30 | XMS_ITS | Encounter Summary ---
Author Organization [facility] Address [address] [facility] [place] [address] Care Team Providers Care Mixer Diamond Powder Name Role Phone Minda Yeboah INSTRUCTOR DANCING Unavailable [phone] Tony Mathur MD Primary Care Provider [phone] Minda Yeboah INSTRUCTOR DANCING Unavailable [phone] Encounter Details Date Type Department Care Team (Late st Contact Info) Description 01/02/2025 Results Follow-Up [facility] [address] [place] [address] Social History Tobacco Use Types [...] 1:00 PM EDT Office Visit [facility] [address] [place] [phone] Minda Yeboah NP [address] [place] [address] documented as of this encounter Visit Diagnoses Not on filedocumented in this encounter Care Teams Mixer Diamond Powder Relationship Specialty Start Date End Date Tony Mathur MD [address] [place] [address] PCP - General Family Medicine 09/19/23 Minda Yeboah NP [address] [place] [address] Referring Physician Nurse Practitioner 02/10/23 Minda Yeboah NP [address] [place] [address] Nurse Practitioner Family Medicine 09/19/23 documented as of this encounter
[2025-01-07 13:54] LABS: Internal Control Within Normal Limits; Occult Blood Positive
== END 2025-01-07 13:27 | disposition home or self-care (01) ==
LOC: LAB 13:26
PROVIDERS: PCP Nurse Practitioner; Visit Provider Nurse Practitioner
DX: R19.7 Diarrhea, unspecified (principal)
CPT/HCPCS: 87493; G0328

== ENCOUNTER 2025-06-09 16:47 | Emergency (ER) | payer MEDICAID, SELFPAY ==
[2025-06-09 16:53] VITALS: BP 142/96; PULSE 96; TEMP 35.6; O2SAT 98; BMI 2008.8
--- NOTE | 2025-06-09 17:25 | CT_ITS ---
The [address] [address] Patient Name: BENTON SORENSEN MRN: [id number] date: 1965 Sex: F Assigned Patient Location: ER Current Patient Location: Accession/Order Number: [id number] Exam Date: 06/09/2025 17:46 Report Date: 06/09/2025 18:35 At the request of: SAMUEL BETH DO Procedure: CT thoracic spine wo con CT thoracic spine wo con 06/09/2025 5:54 PM History:Left lower extremity weakness/numbness TECHNIQUE: Multi detector CT axial slices of the lumbar spine were obtained without IV contrast. Volumetric acquisition sagittal, coronal, and 3-D reconstructions were performed and reviewed on a separate workstation. CT was performed with one or more of the following dose reduction techniques: Automated exposure control, adjustment of the mA and/or kV according to patient size, or use of iterative reconstruction technique. COMPARISON: None FINDINGS: There is a superior endplate compression fracture at T5. No significant retropulsion identified. Remaining thoracic vertebral heights maintained. Overall mild multilevel degenerative changes identified throughout the lumbar spine. Diffuse osteopenia. Minimal levocurvature upper thoracic spine. CT/CT thoracic spine wo con IMPRESSION: Osteopenia with findings suspicious for acute or subacute compression fracture at T5 Impression dictated by: Skyler Hilliard M.D. 06/09/2025 6:35 PM Dictation Location: [place] [address] Electronically authenticated by: [id number] Y Date: 06/09/2025 18:35
--- OUTSIDE RECORDS SUMMARY | 2025-06-09 17:25 | XMS_ITS | Clinical Summary ---
Author Organization [facility] Address [address] [place] [address] Care Team Providers Care Supervisor [employer] Name Role Phone Minda Yeboah SUPERVISOR BINDERY Unavailable [phone] Tony Mathur MD Primary Care Provider [phone] Minda Yeboah SUPERVISOR BINDERY Unavailable [phone] Allergies No known active allergies Medications MedicationSigDispense QuantityRefillsLast FilledStart DateEnd DateStatus ibuprofen 800 MG tablet Take 800 mg by mouth every 8 (eight) hours if efcfup284Active albuterol HFA 90 mcg/act inhaler Indications:Simple chronic bronchitis (HCC)Inhale 2 puffs every 6 (six) hours if needed for wheezing 18 g 5Active methotrexate 2.5 MG tablet Take 12.5 mg by mouth 1 (one) time per week.Active folic acid (Folvite) 1 MG tablet Take 1 mg by mouth DailyActive alendronate (Fosamax) 70 MG tablet Indications:Osteoporosis, unspecified osteoporosis type, unspecified pathological fracture presenceTake 1 tablet (70 mg) by mouth every 7 (seven) days Take in the morning with a full glass of water,on an empty stomach, and do not take anything else by mouth or lie down for the next 30 min. Ask pharmacist how to take this in relation to your thyroid medicati 12 tablet 5Active cetirizine (ZyrTEC) 10 MG tablet Indications:Vitamin D deficiency,Environmental and seasonal allergiesTake 1 tablet (10 mg) by mouth Daily 90 tablet 5Active fluticasone (Flonase) 50 MCG/ACT nasal spray Indications:Environmental and seasonal allergiesAdminister 2 sprays into each nostril Daily 48 g tive levothyroxine (Synthroid) 50 MCG tablet Indications:Hypothyroidism (acquired)Take 1 tablet (50 mcg) by mouth in the morning. Take before meals. 90 tablet tive QUEtiapine (SEROquel) 50 MG tablet Indications:Anxiety and depressionTake 3 tablets (150 mg) by mouth at bedtime 270 tablet tive topiramate (Topamax) 100 MG tablet Indications:Seizures (HCC)Take 1 tablet (100 mg) by mouth in the morning and 1 tablet (100 mg) before bedtime. Total daily dose is 125 mg. 180 tablet 5Active topiramate (Topamax) 25 MG tablet Indications:Seizures (HCC)Take 1 tablet (25 mg) by mouth in the morning and 1 tablet (25 mg) before bedtime. Total daily doseis 125 mg. 180 tablet tive Umeclidinium-Vilanterol (Anoro Ellipta) 62.5-25 MCG/ACT aerosol powder Indications:Simple chronic bronchitis (HCC)Inhale 1 puff Daily 3 each tive atorvastatin (Lipitor) 80 MG tablet Indications:Mixed hyperlipidemiaTake 1 tablet (80 mg) by mouth Daily 30 tablet 5Active Linzess 145 MCG capsule Take 145 mcg by mouth Daily01/02/2025tive famotidine (Pepcid) 40 MG tablet Take 40 mg by mouth at mayupfr3901/02/2025tive esomeprazole (NexIUM) [address] capsule Take 40 mg by mouth Daily5Active sertraline (Zoloft) 100 MG tablet Indications:MARY (generalized anxiety disorder),Major depressive disorder with single episode, in remissionTake 1 tablet (100 mg) by mouth Daily 90 tablet 5Active Active Problems ProblemNoted DateDiagnosed DateColon gdimly0302/24/2025 Assessment & Plan (02/24/2025 7:13 AM EDT): Colonoscopy: 01/29/25: 3 polyps: 2 hyperplastic and 1 sessile Weight loss02/24/2025 Assessment & Plan (02/24/2025 3:31 PM EDT): Food does not taste good since getting dentures UTI (urinary tract infection), dzwbsrtoikgxr48/25/3965Qflcqzanbrqze20/22/2025 Rnhtmpmizev74/20/2025 Assessment & Plan (02/24/2025 7:11 AM EDT): Had EGD/Colonoscopy: 01/29/25 gastropathy Avoid ETOH, advised quit smoking Assessment & Plan (01/13/2025 1:33 PM EDT): No episodes since the one she describes Avoid ETOH, advised quit smoking Is going to have EGD/Colonscopy Assessment & Plan (12/17/2024 4:42 PM EDT): No episodes since the one she describes Avoid ETOH, advised quit smoking Change PPI Refer to GI Check labs If happens again, proceed to the ER Ibjuqhnl20/20/2025 Assessment & Plan (12/17/2024 4:41 PM EDT): No visible blood that she can see Check stool OB, as well as c diff Will refer to colonoscopy Chronic kidney disease, stage 3a10/01/2024Mild episode of recurrent major depressive gchbafjh37/04/2025 Assessment & Plan (02/24/2025 3:30 PM EDT): Current meds: seroquel, sertraline Assessment & Plan (10/14/2024 2:58 PM EDT): Current meds: seroquel, sertraline, aripiprazole PHQ 9= 8 Cigarette nicotine dependence without qtixuzjelvdu32/04/2025 Assessment & Plan (02/24/2025 7:11 AM EDT): The patient has been advised of the risks of continued smoking: stroke, [place], all forms of cancer, lung disease, and . Options for quitting smoking include: cold turkey, hypnosis, acupuncture, nicotine replacement meds(gum, lozenges, and patches), Buproprion, and Varenicline. At this time pt is encouraged to evaluate their goals for wanting to quit smoking, and reach out toprovider when ready to start this process Patient meets requirements for low dose CT scan for lung cancer screening: age 55-80, patient is a current smoker or has quit in the last 15 years. Smoking history is > or equal to 30 pack-year. If needed the patient is able or willing to receive treatment. The patient is not currently exhibiting any s/s of lung cancer. We have discussed the benefits as well as harms of screening, follow up testing if needed, false positive rates. We have also discussed that this type of CT scan has less radiation exposure than a traditional lung CT scan. We have also discussed that it is important to follow with annual screening for this. The patient has also been counseled on the importance of smoking cessation. In 01/[address] scan chest , to date not completed Assessment & Plan (01/13/2025 1:34 PM EDT): The patient has been advised of the risks of continued smoking: stroke, WA, all forms of cancer, lung disease, and . Options for quitting smoking include: cold turkey, hypnosis, acupuncture, nicotine replacement meds(gum, lozenges, and patches), Buproprion, and Varenicline. At this time pt is encouraged to evaluate their goals for wanting to quit smoking, and reach out toprovider when ready to start this process Patient meets requirements for low dose CT scan for lung cancer screening: age 55-80, patient is a current smoker or has quit in the last 15 years. Smoking history is > or equal to 30 pack-year. If needed the patient is able or willing to receive treatment. The patient is not currently exhibiting any s/s of lung cancer. We have discussed the benefits as well as harms of screening, follow up testing if needed, false positive rates. We have also discussed that this type of CT scan has less radiation exposure than a traditional lung CT scan. We have also discussed that it is important to follow with annual screening for this. The patient has also been counseled on the importance of smoking cessation. Assessment & Plan (12/17/2024 6:55 AM EDT): The patient has been advised of the risks of continued smoking: stroke, WA, all forms of cancer, lung disease, and . Options for quitting smoking include: cold turkey, hypnosis, acupuncture, nicotine replacement meds(gum, lozenges, and patches), Buproprion, and Varenicline. At this time pt is encouraged to evaluate their goals for wanting to quit smoking, and reach out toprovider when ready to start this process Assessment & Plan (10/14/2024 7:26 AM EDT): The patient has been advised of the risks of continued smoking: stroke, WA, all forms of cancer, lung disease, and . Options for quitting smoking include: cold turkey, hypnosis, acupuncture, nicotine replacement meds(gum, lozenges, and patches), Buproprion, and Varenicline. At this time pt is encouraged to evaluate their goals for wanting to quit smoking, and reach out toprovider when ready to start this process Encounter for screening mammogram for malignant neoplasm of tzasia0610/01/2024 Assessment & Plan (12/17/2024 4:44 PM EDT): Check mammogram Chronic obstructive pulmonary disease, jngriutelgs89/30/2024 Assessment & Plan (07/04/2024 7:32 AM EST): Recommend quit smoking Cont anoro, albuterol prn Abnormal weight gain04/29/2024 Assessment & Plan (07/04/2024 7:28 AM EST): [...] Total weight loss: 14 pounds OARRS reviewed COVID09/28/20235286Phjtgj57/27/2024hronic pain09/11/20234475Eistfeaevtee21/12/2024 Assessment & Plan (02/24/2025 3:30 PM EDT): Is taking linzess, this is helping alot Assessment & Plan (06/05/2024 2:36 PM EST): Pre existing, does take miralax And adipex is likely worsening this Would recommend fiber tablets daily 2 pills Add apple juice /prune juice mix 1/2 cup nightly as well Thyroid gokciv1909/11/2023 Overview (12/26/2023): US 12/26/23: 2 nodules, no biopsy at this time, repeat in 12 months Assessment & Plan (09/19/2023 3:05 PM EST): Needs fu US thyroid, will fax order to [facility] for this to be scheduled Thyroid ydbxvuhzhxc11/12/2024Obesity with body mass index (BMI) of 30.0 to 39.9 09/11/2023 Assessment & Plan (01/13/2025 6:55 AM EDT): Discussed with patient their BMI (actual, verses recommended). We have also discussed lifestyle modifications: attempts to perform physical activity as chronic conditions allow, also to monitor dietary intake: increasing protein/fruits/veggies and lowering carb intake (unless contraindicated). Limit sodas, juices, and sugary drinks. Assessment & Plan (12/17/2024 4:43 PM EDT): [...] no contraindications OARRS reviewed #1: Multiple thyroid cbvtxjs6208/28/2023 Overview (01/01/2025): US thyroid: 01/01/25: stable Assessment & Plan (12/17/2024 4:42 PM EDT): Recheck US Vitamin D ghafcjzejh38/21/2024 Assessment & Plan (07/04/2024 7:34 AM EST): Continue current supplement Check labs yearly and prn Assessment & Plan (12/18/2023 3:18 PM EDT): Check labs Environmental and seasonal svrpfsabq27/21/8515Xeieqkvl68/15/2024 Assessment & Plan (02/24/2025 7:08 AM EDT): Is not compliant with neurology fu Current meds: topirimate Assessment & Plan (10/14/2024 7:25 AM EDT): [...] EST): No recent seizures Continue current meds Kqlsbque03/15/2024 Assessment & Plan (10/14/2024 3:13 PM EDT): Quetiapine, etc I suspect some intermittent issue with sleep is d/t her steroids She will address this with rheumatology this week Assessment & Plan (09/19/2023 3:05 PM EST): No changes to meds THOMAS (obstructive sleep apnea)08/14/2023 Overview (08/14/2023): sleep study: AHI 7, minimum oxygen saturation is 87% Assessment & Plan (02/24/2025 3:29 PM EDT): You have a diagnosis of obstructive sleep apnea. It is recommended that you wear your PAP device any time while in bed sleeping. Not using the PAP device can increase your risk of elevated/uncontrolled high blood pressure, atrial fibrillation, heart attack, stroke, or sudden . Compliance with PAP:no GERD (gastroesophageal reflux disease)08/14/2023 Assessment & Plan (02/24/2025 3:30 PM EDT): Recommendations: freq small meals, nothing to eat or drink at least 2 hours prior to bed, limit caffeine, alcohol, as well as spicy foods Meds to limit or avoid if possible: NSAIDS Elevate HOB if possible Currently taking PPI Assessment & Plan (01/13/2025 1:33 PM EDT): Recommendations: freq small meals, nothing to eat or drink at least 2 hours prior to bed, limit caffeine, alcohol, as well as spicy foods Meds to limit or avoid if possible: NSAIDS Elevate HOB if possible Currently taking PPI, was switched to esopmeprazole Is scheduled to have EGD/Colonoscopy Assessment & Plan (12/17/2024 4:42 PM EDT): [...] in PPI Fu in 6 weeks Spondylosis, mfcrnwfohwm03/15/2024 Assessment & Plan (02/24/2025 3:35 PM EDT): Weakness in legs, sometimes hard with walking No NT Sxs worse with no methotrexate Consider PT Fuyswdzucrms80/15/2024 Overview (07/04/2024): DEXA: 10/20/22: spine -2.3 and hip -3.0 Assessment & Plan (07/04/2024 7:33 AM EST): Continue w fosamax Last DEXA: 10/20/22 Assessment & Plan (04/29/2024 6:06 PM EDT): Will start fosamax, when ok from dental provider Assessment & Plan (12/18/2023 3:18 PM EDT): Needs prolia Rheumatoid arthritis, hxxxylgodug65/15/2024 Assessment & Plan (02/24/2025 3:33 PM EDT): Flare up with RA d/t no methotrexate, Assessment & Plan (01/13/2025 1:34 PM EDT): Is having a lot of pain Has fu appt with Rheum in 01/2025 Assessment & Plan (12/17/2024 4:43 PM EDT): Continue with rheumatolgist ?? Meds aggravating stomach?? Assessment & Plan (04/29/2024 6:08 PM EDT): Continue with rheumatolgist Hhjvymuiq49/15/2024 Assessment & Plan (10/14/2024 7:27 AM EDT): Current med: topamax Qzjdcfehlhcegb56/15/2024 Assessment & Plan (10/14/2024 7:27 AM EDT): Taking supplement daily Takes PPI daily as well Check labs yearly and prn changes in sxs Mixed pfklxskxvkiras97/28/2023 Assessment & Plan (10/14/2024 7:28 AM EDT): Continue statin Check labs yearly and prn dose changes Assessment & Plan (07/04/2024 7:34 AM EST): Continue statin Check labs yearly and prn dose changes Elevated serum seoqgfyuhn92/28/2023ge-related osteoporosis without current pathological xehgdgwc49/26/2023 Overview (01/08/2025): DEXA scan 10/20/22 spine -2.3, hip -3.0 DEXA scan 01/01/25: spine -2.6 hip -2.8 Assessment & Plan (10/14/2024 7:26 AM EDT): Last DEXA 10/20/24: -3.0 Current meds: fosamax, and vit d Assessment & Plan (01/22/2024 3:43 PM EDT): DEXA 10/20: -3.0 No fosamax d/t GERD, last Prolia shot 12/20 Going to have teeth pulled in March Will check with [facility] MARY (generalized anxiety disorder)07/22/2023 Assessment & Plan (02/24/2025 3:30 PM EDT): Current meds: sertraline, seroquel Assessment & Plan (10/14/2024 2:58 PM EDT): [...] EDT): Feels meds are working great Hypothyroidism (acquired)07/03/2023 Assessment & Plan (10/14/2024 7:26 AM EDT): [...] No changes in med dose Resolved Problems ProblemNoted DateDiagnosed DateResolved DateURI, acute/09/2023 Ucrhxvsx14/ Assessment & Plan (04/29/2024 6:06 PM EDT): Continue topirimate Will monitor Chronic xqvfyvzwuw88/21/202412/11/2023 Assessment & Plan (04/02/2024 1:43 PM EDT): Continue the use of anoro and albuterol Tobacco user/10/2024 Assessment & Plan (07/04/2024 7:27 AM EST): The patient has been advised of the risks of continued smoking: stroke, WA, all forms of cancer, lung disease, and . Options for quitting smoking include: cold turkey, hypnosis, acupuncture, nicotine replacement meds(gum, lozenges, and patches), Buproprion, and Varenicline. At this time pt is encouraged to evaluate their goals for wanting to quit smoking, and reach out toprovider when ready to start this process Assessment & Plan (06/05/2024 7:11 AM EST): The patient has been advised of the risks of continued smoking: stroke, WA, all forms of cancer, lung disease, and . Options for quitting smoking include: cold turkey, hypnosis, acupuncture, nicotine replacement meds(gum, lozenges, and patches), Buproprion, and Varenicline. At this time pt is encouraged to evaluate their goals for wanting to quit smoking, and reach out toprovider when ready to start this process Assessment & Plan (04/02/2024 1:45 PM EDT): The patient has been advised of the risks of continued smoking: stroke, WA, all forms of cancer, lung disease, and . Options for quitting smoking include: cold turkey, hypnosis, acupuncture, nicotine replacement meds(gum, lozenges, and patches), Buproprion, and Varenicline. At this time pt is encouraged to evaluate their goals for wanting to quit smoking, and reach out toprovider when ready to start this process Patches, smokes 1ppd, for 40 years Start with 21mg patch Assessment & Plan (01/22/2024 3:41 PM EDT): The patient has been advised of the risks of continued smoking: stroke, WA, all forms of cancer, lung disease, and . Options for quitting smoking include: cold turkey, hypnosis, acupuncture, nicotine replacement meds(gum, lozenges, and patches), Buproprion, and Varenicline. At this time pt is encouraged to evaluate their goals for wanting to quit smoking, and reach out toprovider when ready to start this process HLD (hyperlipidemia)/ Assessment & Plan (10/14/2024 7:27 AM EDT): On statin therapy Check labs yearly and prn dose changes Depression with /10/2024 Overview (07/04/2024): 10/20/22: MARY 7 score=18, PHQ 9 score=18 07/04/2024: MARY 7 score =2, PHQ 9 score= 5 Assessment & Plan (07/04/2024 2:20 PM EST): MARY 7= 2, PHQ 9= 5 Stable on current meds Assessment & Plan (04/29/2024 6:07 PM EDT): Stable on current meds Anxiety and efyvdeaicw58/11/202409/09/2023 Assessment & Plan (12/18/2023 3:19 PM EDT): Meds are doing well, no dose changes needed Assessment & Plan (09/19/2023 3:06 PM EST): Doing well on current meds, no changes Spxrkab43/05/2024Major depressive disorder with single episode, in gmtbakwaj53 Encounters DateTypeDepartmentCare HgypQbtywxtcopf38/21/2025Refill [facility] [address] [place] [address] Minda Yeboah NP Gastroesophageal reflux disease, unspecified whether esophagitis presentfrom Last 3 Months Immunizations ImmunizationAdministration DatesNext DueInfluenza, injectable, quadrivalent, preservative free03/24/2015 Family History Medical HistoryRelationNameCommentsHeart diseaseFatherHypertensionFatherHeart diseaseMaternal GrandmotherArthritisMotherCancerMotherOvarian & Uterus HypertensionMotherHypothyroidismMotherRheum arthritisMotherHeart diseaseOther HypertensionOtherRelationNameStatusCommentsFatherMaternal GrandmotherMotherOther Social History Tobacco UseTypesPacks/DayYears UsedDateSmoking Tobacco: Every ZyqEcweyaqaag575.9 Started: 1981 Tobacco Cessation:Ready to Q uit: No; Counseling Given: Yes Alcohol UseStandard Drinks/WeekCommentsNever0 (1 standard drink = 0.6 oz pure alcohol)coffee: 2-3cups dailyPHQ-2AnswerDate RecordedPatient Health Questionnaire-2 Jmjro625/05/2024CommentsUnknownSex and Gender InformationValueDate RecordedSex Assigned at BirthNot on fileLegal SexFemale 02/10/2023 11:44 AM EDTGender IdentityNot on fileSexual OrientationNot on file Last Filed Vital Signs Vital SignReadingTime TakenCommentsBlood Yaybircj701/8807 2:46 PM EDT Xfirr27790/28/2025 2:46 PM JSSKeqdnznhumf65.8 ??C (98.3 ??F)02/24/2025 2:46 PM EDTRespiratory Pzrl250502/24/2025 2:46 PM EDTOxygen Csoaodfpah19%02/24/2025 2:46 PM EDTInhaled Oxygen Concentration--Qpvhgo29.3 kg (179 lb 3.2 oz)02/24/2025 2:46 PM SQWCaojxo037.2 cm (5' 7 )07/04/2024 1:57 PM ESTBody Mass Index28. 1:57 PM EST Plan of Treatment Not on file Insurance * Guarantor: Tanja Carrero TypeRelation to PatientDate of BirthPhone Billing AddressPersonal/CspadnTxam45/04/[phone] [address] Care Teams Team MemberRelationshipSpecialtyStart DateEnd Date Tony Mathur MD PCP - GeneralFamily Medicine09/19/23 Minda Yeboah NP Referring PhysicianNurse Practitioner02/10/23 Minda Yeboah NP Nurse PractitionerFamily Medicine09/19/23
--- OUTSIDE RECORDS SUMMARY | 2025-06-09 17:25 | XMS_ITS | Clinical Summary ---
Author Organization [facility] Address [address], [address] [place] [address] Care Team Providers Care Reel And Rewinder Operator Name Role Phone Minda Yeboah APRN, NP Primary Care Provide r Allergies No known active allergies Medications MedicationSigDispense QuantityRefillsLast FilledStart DateEnd DateStatus acetaminophen (TYLENOL) 325 MG tablet Take 2 tablets by mouth every 6 hours as neededActive sertraline (ZOLOFT) 100 MG tablet Take 1 tablet by mouth dailyActive cetirizine (ZYRTEC) 10 MG tablet Take 1 tablet by mouth dailyActive topiramate (TOPAMAX) 25 MG tablet Take 5 tablets by mouth 2 times dailyActive ibuprofen (ADVIL;MOTRIN) 800 MG tablet Take 1 tablet by mouth every 8 hours as needed for PainActive omeprazole (PRILOSEC) 20 MG delayed release capsule Take 2 capsules by mouth dailyActive levothyroxine (SYNTHROID) 25 MCG tablet Take 1 tablet by mouth DailyActive busPIRone (BUSPAR) 5 MG tablet Take 1 tablet by mouth 2 times dailyActive atorvastatin (LIPITOR) 10 MG tablet Take 1 tablet by mouth dailyActive fluticasone (FLONASE) 50 MCG/ACT nasal spray 1 spray by Each Nostril route dailyActive umeclidinium-vilanterol (ANORO ELLIPTA) 62.5-25 MCG/INH AEPB inhaler Inhale 1 puff into the lungs dailyActive albuterol sulfate HFA (PROVENTIL;VENTOLIN;PROAIR) 108 (90 Base) MCG/ACT inhaler Inhale 2 puffs into the lungs every 6 hours as needed for WheezingActive zinc sulfate (ZINCATE) 220 (50 Zn) MG capsule Take 2 capsules by mouth daily 30 capsule ctive vitamin D3 (CHOLECALCIFEROL) 25 MCG (1000 UT) TABS tablet Take 1 tablet by mouth daily 30 tablet 06/18/2021ctive pantoprazole (PROTONIX) 40 MG tablet Take 1 tablet by mouth dailyActive Active Problems ProblemNoted DateDiagnosed LknqVzitkjd35/26/2022Multiple fractures of foot, left, closed, initial qavhbdgxm40/25/2022nkle fracture, bimalleolar, closed, left, initial lvoxozixq47/25/8217Mmmgqksrkhs91/17/5674Rlthvmmljhxpgj85/16/2021 Encephalopathy due to COVID-19 virus06/15/2021OVID-19 virus hlimpoccp81/15/2021 Yznxmwag38/02/2013Raynaud tuvvsyi7805/01/2013Disturbance of skin sensation 09/12/2012Tobacco abuse09/12/2012 Resolved Problems ProblemNoted DateDiagnosed DateResolved FpwzZibgvufkhod48 Family History Medical HistoryRelationNameCommentsHeart DiseaseFatherHigh Blood PressureFather Heart DiseaseMaternal GrandfatherDiabetesMaternal GrandmotherHeart Disease Maternal GrandmotherArthritisMotherDiabetesPaternal GrandfatherHeart Disease Paternal GrandfatherDiabetesPaternal GrandmotherHeart DiseasePaternal GrandmotherRelationNameStatusCommentsFatherAliveMaternal GrandfatherMaternal GrandmotherMotherAlivePaternal GrandfatherPaternal Grandmother Social History Tobacco UseTypesPacks/DayYears UsedDateSmoking Tobacco: Every CizRuochpimom974 Smokeless Tobacco: Never Tobacco Cessation:Ready to Q uit: Not Asked; Counseling Given: Not Answered Alcohol UseStandard Drinks/WeekCommentsYes0 (1 standard drink = 0.6 oz pure alcohol)occasionalAUDIT-CAnswerDate RecordedQ1: How often do you have a drink containing alcohol?Never08/21/2024Q2: How many drinks containing alcohol do you have on a typical day when you are drinking?Patient does not drink08/21/2024Q3: How often do you have six or more drinks on one occasion?Never08/21/2024 CommentsNoSex and Gender InformationValueDate RecordedSex Assigned at BirthNot on fileLegal ZtyAeyyfd80/13/2013 1:08 AM ESTGender IdentityNot on fileSexual OrientationNot on file Last Filed Vital Signs Vital SignReadingTime TakenCommentsBlood Fkcfgwje711/90008/21/2024 12:23 PM EST Nxgao972508/21/2024 12:24 PM OUOBtrlyreibkx62.1 ??C (98.7 ??F)08/21/2024 12:26 PM ESTRespiratory Ideu969308/21/2024 12:25 PM ESTOxygen Sgooyqtsdj51%08/21/2024 12:24 PM ESTInhaled Oxygen Concentration--Nhrccc62.9 kg (185 lb)08/21/2024 12:26 PM IOSWnarmy945.2 cm (5' 7 )05/24/2022 11:15 AM EDTBody Mass Index28.9805/24/2022 11:15 AM EDT Plan of Treatment Health MaintenanceDue DateLast IlzfMsbtxkneRyitph67/04/1978Depression Screen 1979HIV tyzrfx8911/01/1982Hepatitis C nthffj2911/01/1985DTaP/Tdap/Td vaccine (1 - Tdap)11/01/1986Hepatitis B vaccine (1 of 3 - 19+ 3-dose series)11/01/1986 Pneumococcal 50+ years Vaccine (1 of 2 - PCV)11/01/1986Pap smear11/01/1988 Cervical cancer ydicyv2711/01/1997HPV (without or with Pap)11/01/1997Breast cancer ggdndj7311/02/20076052Qfdpxdlsgpd64/04/2013Colorectal Cancer Mcjafi1011/01/2012FIT/FOBT: Average risk11/01/2012Fecal-DNA (Cologuard): Average risk11/01/2012 Sigmoidoscopy/CT silzbnfhiqen78/04/2013Lung Cancer Screening &/or Counseling 11/01/2017Shingles vaccine (1 of 2)11/01/2017Flu vaccine (#1)02/28/2025 03/24/2015COVID-19 Vaccine (2023- season)2025GFR test (Diabetes, CKD 3-4, OR last GFR 15-59)6008/21/2024, 05/26/2022, 05/24/2022, Additional history existsHepatitis A vaccineAged OutNo longer eligible based on patient's age to complete this topicHib vaccineAged OutNo longer eligible based on patient's age to complete this topicMeningococcal (ACWY) vaccineAged OutNo longer eligible based on patient's age to complete this topicMeningococcal B vaccineAged OutNo longer eligible based on patient's age to complete this topic Polio vaccineAged OutNo longer eligible based on patient's age to complete this topic Procedures Procedure NamePriorityDate/TimeAssociated DiagnosisCommentsBASIC METABOLIC PANEL STAT08/21/2024 12:23 PM EST from Last 3 Months or Most Recently Relevant to Health Maintenance Results * (ABNORMAL) Basic Metabolic Panel (08/21/2024 12:23 PM EST)ComponentValueRef RangeTest MethodAnalysis TimePerformed AtPathologist PqnfqcivvZeaecl428(L)136 - 145 mmol/L08/21/2024 12:23 PM [facility] LABPotassium 4.13.7 - 5.3 mmol/L08/21/2024 12:23 PM [facility] Kztuhckq6836 - 107 mmol/L08/21/2024 12:23 PM [facility] NRXHC81792 - 31 mmol/L08/21/2024 12:23 PM [facility] Anion Rnj706 - 16 mmol/L08/21/2024 12:23 PM [facility] JFFBvmjexk7257 - 99 mg/dL08/21/2024 12:23 PM [facility] DDOBSP528 - 20 mg/dL08/21/2024 12:23 PM [facility] Creatinine1.2(H)0.50 - 0.90 mg/dL08/21/2024 12:23 PM [facility] LABEst, Glom Filt Rate54(L)>60 mL/min/1.85m14108/21/2024 12:23 PM EST [facility] LABComment: ? These results are not intended for use in patients <18 years of age. ? eGFR results are calculated without a race factor using the 2020 CKD-EPI equation. Careful clinical correlation is recommended, particularly when comparing to results calculated using previous equations. The CKD-EPI equation is less accurate in patients with extremes of muscle mass, extra-renal metabolism of creatine, excessive creatine ingestion, or following therapy that affects renal tubular secretion. BUN/Creatinine Nzdcz500 - 12:23 PM [facility] LABCalcium9.98.6 - 10.4 mg/dL08/21/2024 12:23 PM [facility] LABSpecimen (Source)Anatomical Location / LateralityCollection Method / Volume Collection TimeReceived TimeBloodBLOOD SPECIMEN / Yxtmyjo4208/21/2024 12:23 PM EST 08/21/2024 12:53 PM EST Narrative Authorizing ProviderResult TypeResult StatusKelhi Davila PA-CCHEMISTRY ORDERABLESFinal ResultPerforming OrganizationAddressCity/State/ZIP CodePhone Number [facility] [address] [phone] from Last 3 Months or Most Recently Relevant to Health Maintenance Insurance Advance Directives * Full Code (Latest Code Status on File) Date ActivatedDate AwbuhdnhmxeXgiawini15/25/2022 12:20 PM10 4:23 PM * Full Code Date ActivatedDate AaggzwbbejlZiryrxtw85/25/2022 12:20 PM10 12:20 PM * Full Code Date ActivatedDate IlvfeysnskxGxdohupt02/15/2021 9:04 PM06/18/2021 4:14 PM NameRelationshipHealthcare Agent RelationshipCommunicationDavid LeeSpousePrimary Decision Maker* Care Teams Team MemberRelationshipSpecialtyStart DateEnd Date Minda Yeboah, PSYCH TECH - DOCK SUPERINTENDENT [address] [place] [address] PCP - GeneralNurse Kmrfdlbmbapi49/19/21
--- OUTSIDE RECORDS SUMMARY | 2025-06-09 17:25 | XMS_ITS | Clinical Summary ---
Author Organization [employer] Address [facility] [address] [place] [address] Care Team Providers Care Locomotive Lubricating Systems Clerk Name Role Phone Unavailable Primary Care Provider Unavailabl e Allergies No known active allergies Medications MedicationSigDispense QuantityRefillsLast FilledStart DateEnd DateStatus acetaminophen (TYLENOL) 325 mg tablet Take 2 tablets (650 mg total) by mouth.Active albuterol (PROVENTIL HFA;VENTOLIN HFA) 90 mcg/actuation inhaler inhale 2 puffs by mouth and INTO THE LUNGS every 6 hours if needed for SHORTNESS OF BREATHActive amoxicillin-pot clavulanate (AUGMENTIN) 500-125 mg per tablet Active amoxicillin-pot clavulanate (AUGMENTIN) 875-125 mg per tablet take 1 tablet by mouth twice a day with food03/20/2023ctive atorvastatin (LIPITOR) 10 mg tablet 07/15/2022ctive fluticasone propionate (FLONASE) 50 mcg/actuation nasal spray instill 2 sprays into each nostril once dailyActive levothyroxine (SYNTHROID, LEVOTHROID) 75 MCG tablet 04/12/2023ctive QUEtiapine (SEROquel) 100 mg tablet take 1 tablet by mouth at bedtime WITH 50 MG TABLETActive magnesium oxide (MAGOX) 400 mg tablet 04/12/2023ctive topiramate (TOPAMAX) 25 mg tablet take 1 tablet by mouth twice a day WITH 100 MG TABLETActive topiramate (TOPAMAX) 100 mg tablet take 1 tablet by mouth twice a day WITH 25 MG TABLETActive predniSONE (DELTASONE) 5 mg tablet 7.5 mg daily for one week then 5 mg daily for one week then 2.5 mg daily for one week 21 tablet 10/17/2024tive cyclobenzaprine (FLEXERIL) 5 mg tablet Indications:DDD (degenerative disc disease), cervicalTake 1 tablet (5 mg total) by mouth nightly as needed for muscle spasms. 90 tablet 5Active folic acid (FOLVITE) 1 mg tablet TAKE 1 TABLET BY MOUTH IN THE MORNING 90 tablet 5Active methotrexate 2.5 mg chemo tablet take 5 tablets by mouth once a week. 60 tablet 5Active Active Problems No known active problems Encounters DateTypeDepartmentCare OyooPegumdwsoky96/10/2025Refill [facility] [address] [place] [phone] Cristian Szymanski MD 04/09/2025Refill [facility] [address] [address] Cristian Szymanski MD from Last 3 Months Social History Tobacco UseTypesPacks/DayYears UsedDateSmoking Tobacco: Never AssessedChildcare AnswerDate JijywoqpBleikokzuIqfbmvo09/12/2019EmploymentAnswerDate Recorded PoixfvrvngWywdjsw90/12/2019CommentsUnknownSex and Gender Information ValueDate RecordedSex Assigned at BirthNot on fileLegal WiiMnignf07/06/2015 11:26 AM EDTGender IdentityNot on fileSexual OrientationNot on file Last Filed Vital Signs Vital SignReadingTime TakenCommentsBlood Kmhfmexa972/7801 1:59 PM EST Ogrvm7547 1:59 PM ESTTemperature--Respiratory Sfxs6685 12:42 PM EDTOxygen Saturation--Inhaled Oxygen Concentration--Uvbgfc51.3 kg (210 lb) 10/17/2024 12:42 PM DRVPrbnjk420.2 cm (5' 7 )10/17/2024 12:42 PM EDTBody Mass Index32.8910/17/2024 12:42 PM EDT Plan of Treatment Health MaintenanceDue DateLast DoneCommentsDepression Pdpjpvzjr49/04/1980Tobacco Klfihdfkv70/04/1980Adult BMI Follow Up Plan11/01/1985DTaP,Tdap and Td Vaccines (1 - Tdap)11/01/1986Pap Smear11/01/1988Zoster (Shingles) Vaccine (1 of 2) 11/01/2017Influenza Pmimhix53/dult BMI Xwmjcwvxj02/20/2026 10/17/2024 Medical Devices Not on file Insurance
--- OUTSIDE RECORDS SUMMARY | 2025-06-09 17:25 | XMS_ITS | Encounter Summary ---
Author Organization [facility] Address [address] [place] [address] Care Team Providers Care Armor Reconnaissance Vehicle Driver Name Role Phone Tony Mathur MD Primary Care Provider [phone] Minda Yeboah SAMPLER TESTER Unavailable [phone] Tony Mathur MD Primary Care Provider [phone] Minda Yeboah NP Unavailable [phone] Encounter Details DateTypeDepartmentCare Team (Latest Contact Info)Ykzvepsxjhv29/18/2024Clinisync Result Encounter [facility] External Department Unsolicited Minda Yeboah NP [address] [place] [phone] Social History Tobacco UseTypesPacks/DayYears UsedDateSmoking Tobacco: Every HyeUeeqvvcloo615.9 Started: 1982PHQ-2AnswerDate RecordedPatient Health Questionnaire-2 Score0 4CommentsUnknownSex and Gender InformationValueDate RecordedSex Assigned at BirthNot on fileLegal BurDtnetn39/14/2023 11:44 AM EDTGender IdentityNot on fileSexual OrientationNot on filedocumented as of this encounter Functional Status * Over the past 2 weeks, how often have you been bothered by any of the following problems?QuestionAnswerDate of AssessmentAuthorLittle interest or pleasure in doing thingsNot at all07/04/2024 1:59 PM Lisa Young MA Feeling down, depressed, or hopelessNot at all07/04/2024 1:59 PM Lisa Young MAPatient Health Questionnaire-2 Qublp20109/04/2023 1:59 PM EST Lisa Sparks MA documented as of this encounter Plan of Treatment Not on file documented as of this encounter Procedures Procedure NamePriorityDate/TimeAssociated DiagnosisCommentsMM TOMOSYNTHESIS SCREENING BI08/17/2023 3:41 PM EST documented in this encounter Results * MM TOMOSYNTHESIS SCREENING BI (08/17/2023 3:41 PM EST)Anatomical Region LateralityModalityOtherSpecimen (Source)Anatomical Location / Laterality Collection Method / VolumeCollection TimeReceived Time08/17/2023 3:41 PM EST Narrative 08/17/2023 3:42 PM EST [facility] ?[address] ? [place] [address] ? Mammography Report ? Signed ? Patient: FRANCHESCABENTON Osborne ? MR#: [id number] ?? : 1965 ?Acct:[id number] ?? Age/Sex: 57 / F ?ADM Date: 08/17/23 ?? Loc: INF ? Attending Dr: Minda Yeboah SAMPLER TESTER ? Ordering Physician: Minda Yeboah NP ?Results: ? Date of Service: 08/17/ ?Follow Up: ? Procedure(s): MM tomosynthesis screening BI ?? Accession Number(s): [id number] ? cc: Minda Yeboah SAMPLER TESTER ? Patient Name: ? BENTON FRANCHESCA ? MR#: [id number] ? : 1965 ? Exam Date: 08/17/2023 ?? Ordering Doctor: CHERYL Yeboah CNP ? RADIOLOGY REPORT ? PROCEDURE: ? MM TOMOSYNTHESIS SCREENING BI ? COMPARISON: ? MG MAMM CLARIBEL DIAG W CAD DIG, 01/15/2016. ? INDICATIONS: ? Screening ? Calculator Name ? NCI Breast Cancer Risk Assessment Tool ?? 5 Year Breast Cancer Risk ? 1.00% ?? Lifetime Breast Cancer Risk ? 6.70% ?? Personal Breast Cancer ?No ?? Personal Ovarian Cancer ? No ?? Treatments ? None ?? Family Cancers ? Mother with uterine cancer at age 20. ? LOCATION: ? [facility] ? BREAST COMPOSITION: ? Heterogeneously dense,which may obscure small masses. ? FINDINGS: ? DIAGNOSTIC CATEGORY 1--NEGATIVE. NO CHANGE FROM COMPARISON ASSESSMENT. ? Scattered benign-appearing lymph nodes are present. ? RIGHT BREAST: ??No significant suspicious finding. ? LEFT BREAST: ??No significant suspicious finding. ? RECOMMENDATIONS: ? ROUTINE MAMMOGRAM AND CLINICAL EVALUATION IN 12 MONTHS. ? PLEASE NOTE: ??A NORMAL MAMMOGRAM DOES NOT EXCLUDE THE POSSIBILITY OF BREAST ?? CANCER. ??A CLINICALLY SUSPICIOUS PALPABLE LUMP SHOULD BE BIOPSIED. ? Dictated by: Jaun Blakely MD on 08/17/2023 at 15:38 ? Approved by: Juan Blakely MD on 08/17/2023 at 15:41 ? Dictated By: ?Juan Blakely M.D. ? Signed By: ?08/17/23 1542 ? DD/ 1541 ? TD/TT: ? Medical Language Specialist: Procedure Note Radiology, Radiologist, MD - 08/17/[address] [address] Mammography Report Signed Patient: BENTON CARRERO MMR#: [id number] : 1965Acct:[id number] Age/Sex: 57 / FADM Date: 08/17/23 Loc: INF Attending Dr: Minda Yeboah SAMPLER TESTER Ordering Physician: Minda Yeboah NPResults: Date of Service: 08/17/23Follow Up: Procedure(s): MM tomosynthesis screening BI Accession Number(s): [id number] cc: Minda Yeboah SAMPLER TESTER Patient Name: BENTON CARRERO MR#: [id number] : 1965 Exam Date: 08/17/2023 Ordering Doctor: CHERYL Yeboah INVESTOR RELATIONS DIRECTOR RADIOLOGY REPORT PROCEDURE: MM TOMOSYNTHESIS SCREENING BI COMPARISON: MG MAMM CLARIBEL DIAG W CAD DIG, 01/15/2016. INDICATIONS: Screening Calculator Name NCI Breast Cancer Risk Assessment Tool 5 Year Breast Cancer Risk 1.00% Lifetime Breast Cancer Risk 6.70% Personal Breast Cancer No Personal Ovarian Cancer No Treatments None Family Cancers Mother with uterine cancer at age 20. LOCATION: [facility] BREAST COMPOSITION: Heterogeneously dense,which may [...] M.D. Signed By:08/17/23 1542 DD/ 1541 TD/TT: Medical Language Specialist: Authorizing ProviderResult TypeResult StatusLisa Edilia NPCLINISYNC IMAGING Final Result documented in this encounter Visit Diagnoses Not on filedocumented in this encounter Care Teams Team MemberRelationshipSpecialtyStart DateEnd Date Tony Mathur MD PCP - GeneralFamily Medicine Tony Mathur MD PCP - GeneralFamily Medicine09/19/23 Minda Yeboah NP Referring PhysicianNurse Practitioner02/10/23 Minda Yeboah NP Nurse PractitionerFamily Medicine09/19/23documented as of this encounter
--- OUTSIDE RECORDS SUMMARY | 2025-06-09 17:25 | XMS_ITS | Encounter Summary ---
Author Organization [facility] Address [address] [place] [address] Care Team Providers Care Infection Control Practitioner Name Role Phone Minda Yeboah MUSIC REHABILITATION THERAPIST Unavailable [phone] Tony Mathur MD Primary Care Provider [phone] Minda Yeboah MUSIC REHABILITATION THERAPIST Unavailable [phone] Encounter Details DateTypeDepartmentCare Team (Latest Contact Info)Ppnotpiucpn08/28/2024Clinisync Result Encounter [facility] External Department Unsolicited Minda Yeboah NP [address] [place] [id number] Social History Tobacco UseTypesPacks/DayYears UsedDateSmoking Tobacco: Every DdfYruyfhbmid829.9 Started: 1981Alcohol UseStandard Drinks/WeekCommentsNever0 (1 standard drink = 0.6 oz pure alcohol)coffee: 2-3cups dailyPHQ-2AnswerDate RecordedPatient Health Questionnaire-2 Lfvin656/05/2024CommentsUnknownSex and Gender InformationValueDate RecordedSex Assigned at BirthNot on fileLegal SexFemale 02/10/2023 11:44 AM EDTGender IdentityNot on fileSexual OrientationNot on file documented as of this encounter Functional Status * Over the past 2 weeks, how often have you been bothered by any of the following problems?QuestionAnswerDate of AssessmentAuthorLittle interest or pleasure in doing thingsNot at all07/04/2024 1:59 PM Lisa Young MA Feeling down, depressed, or hopelessNot at all07/04/2024 1:59 PM Lisa Young MAPatient Health Questionnaire-2 Vktwt41309/04/2023 1:59 PM Lisa Simpson MA documented as of this encounter Plan of Treatment Not on file documented as of this encounter Procedures Procedure NamePriorityDate/TimeAssociated DiagnosisCommentsUS AVVTJSH2012/26/2023 12:39 PM EDT documented in this encounter Results * US thyroid (12/26/2023 12:39 PM EDT)Anatomical RegionLateralityModalityHead, NeckUltrasoundSpecimen (Source)Anatomical Location / LateralityCollection Method / VolumeCollection TimeReceived Time12/26/2023 12:39 PM EDT Narrative 12/26/2023 12:41 PM EDT [facility] ?[address] ? [place] [address] ? Ultrasound Report ? Signed ? Patient: BENTON CARRERO ? MR#: [id number] ?? : 1965 ?Acct:[id number] ?? Age/Sex: 58 / F ?ADM Date: 12/26/23 ?? Loc: US ? Attending Dr: Minda Yeboah MUSIC REHABILITATION THERAPIST ? Ordering Physician: Minda Yeboah NP ?? Date of Service: 12/26/23 ?? Procedure(s): US thyroid ?? Accession Number(s): [id number] ? cc: Minda Yeboah NP ? [facility] ? [address] ? [place] [address] ? Patient Name: ?? BENTON CARRERO ? MRN: [facility]:[id number] ? date: 1965 ?Sex: F ?? Assigned Patient Location: US ?? Current Patient Location: US ?? Accession/Order Number: [id number] ?? Exam Date: 12/26/2023 ??11:37 ?Report Date: 12/26/2023 ??12:39 ? At the request of: ?? MINDA YEBOAH ? Procedure: ??US thyroid ? EXAM: US thyroid ? HISTORY: Thyroid nodule E04.1 ? COMPARISON: 04/19/2021 ? TECHNIQUE: Multiple sonographic images of the thyroid gland were obtained, ?? supplemented with Doppler. ? FINDINGS: Right lobe measures 4.4 x 1.1 x 1.2 cm. Homogeneous echoes are noted ? throughout. In the mid aspect there is a complex hyperechoic nodular mass ?? measuring 0.5 x 0.4 x 0.4 cm. This is considered TI RADS 4. ? The left lobe measures 4.1 x 1.4 x 1.2 cm. Homogeneous echoes are noted ?? throughout. In the superior aspect there is a solid hyperechoic nodule present ? measuring 0.4 x 0.4 x 0.4 cm. This is considered TI RADS 3 ? The isthmus measures 4 mm in thickness. There is no evidence of a focal mass ?? or ?? abnormal fluid collection surrounding the gland. ? US/US thyroid ?? IMPRESSION: ? The thyroid gland is not enlarged. A small nodule is seen in each lobe biopsy ?? is not recommended at this time. Follow-up study as clinically indicated. ? Electronically authenticated by: LANE ??PUMA ?? Date: 12/26/2023 ??12:39 ? Dictated By: ?Lane Danielle M.D. ? Signed By: ?12/26/23 1241 ? DD/ 1239 ? TD/TT: ? Agricultural Produce Washer: Procedure Note Radiology, Radiologist, - 12/26/[address] [address] Ultrasound Report Signed Patient: BENTON CARRERO MMR#: [id number] : 1965Acct:[id number] Age/Sex: 58 / FADM Date: 12/26/23 Loc: US Attending Dr: Minda Yeboah NP Ordering Physician: Minda Yeboah NP Date of Service: 12/26/23 Procedure(s): US thyroid Accession Number(s): [id number] cc: Minda Yeboah NP The [address] [address] Patient Name: BENTON CARRERO MRN: [id number] date: 1965 Sex: F Assigned Patient Location: US Current Patient Location: US Accession/Order Number: [id number] Exam Date: 12/26/2023 11:37 Report Date: 12/26/2023 [...] M.D. Signed By:12/26/23 1241 DD/ 1239 TD/TT: Agricultural Produce Washer: Authorizing ProviderResult TypeResult StatusLisa Edilia NPIMG US PROCEDURES Final Result documented in this encounter Visit Diagnoses Not on filedocumented in this encounter Care Teams Team MemberRelationshipSpecialtyStart DateEnd Date Tony Mathur MD PCP - GeneralFamily Medicine09/19/23 Minda Yeboah NP Referring PhysicianNurse Practitioner02/10/23 Minda Yeboah NP Nurse PractitionerFamily Medicine09/19/23documented as of this encounter
--- OUTSIDE RECORDS SUMMARY | 2025-06-09 17:25 | XMS_ITS | Clinical Summary ---
Author Organization [facility] Address [address] [facility] [place] [address] Care Team Providers Care Sales Incentive Analyst Name Role Phone Liss Munoz DMD, MD Unavailable [phone] Source Comments The following information is NOT included in Care Everywhere downloads:Psychiatric notes, ECG results, Cardiac Rehab notes, Pulmonary Function notes, data from SmartForms (includes but not limited toPregnancy data,audiograms, eye exams, pre-surgical evaluation notes, well-child exam data).[facility] Allergies No known active allergies Medications MedicationSigDispense QuantityRefillsLast FilledStart DateEnd DateStatus fluticasone (FLONASE) 50 mcg/act nasal inhaler 07/17/2022ctive gabapentin (NEURONTIN) 300 MG capsule 1 (one) capsule by mouth as directed, start with 1 at bedtime for... (REFER TO PRESCRIPTION NOTES).06/30/2022ctive topiramate (TOPAMAX) 25 MG tablet topiramate 25 mg tablet take 1 tablet by mouth twice a dayActive topiramate (TOPAMAX) 100 MG tablet 07/15/2022ctive sertraline (ZOLOFT) 100 MG tablet Take 100 mg by mouth daily.05/12/2022ctive cetirizine (ZyrTEC) 10 MG tablet 07/15/2022ctive atorvastatin (LIPITOR) 10 MG tablet 07/15/2022ctive busPIRone (BUSPAR) 10 MG tablet take 1 tablet by mouth three times a day for oooftrf4906/26/2022ctive QUEtiapine (SEROQUEL) 100 MG tablet 07/16/2022ctive levothyroxine (SYNTHROID) 25 MCG tablet 07/15/2022ctive Anoro Ellipta 62.5-25 MCG/ACT AEPB inhalation powder inhale 1 puff by mouth and INTO THE LUNGS once daily06/17/2022ctive chlorhexidine (Peridex) 0.12 % oral solution Take 15 mL by mouth 2 times daily (after meals) for 7 days. Swish and spit 15ml BID after meals. Rinse for 30 seconds and then gently spit. Do not swallow. 473 mL 11/14/2022ctive Active Problems ProblemNoted DateDiagnosed DateEpileptic euwgeee3307/18/20227307Czvqiqgz49/19/2022 Uopcvdminhljxb98/19/1756Tounaba84/26/2022nkle fracture, bimalleolar, closed, left, initial jbxolchrl83/25/2022Multiple fractures of foot, left, closed, initial admaqkgod14/25/1816Eutaeviixmf84/17/2869Reupmpudtriahg33/16/2021 Encephalopathy due to COVID-19 virus06/15/2021OVID-19 virus neqnrmrjl79/15/2021 Bbcphomd93/02/2013Raynaud ijebhpf0205/01/2013Disturbance of skin sensation 09/12/2012Tobacco abuse09/12/2012 Social History Tobacco UseTypesPacks/DayYears UsedDateSmoking Tobacco: Never Assessed CommentsUnknownSex and Gender InformationValueDate RecordedSex Assigned at Not on fileLegal DwpGjimmx30/26/2022 1:04 PM EDTGender IdentityNot on fileSexual OrientationNot on file Last Filed Vital Signs Vital SignReadingTime TakenCommentsBlood Glsgnioe850/7804 2:41 PM EDT Ruwvq3805 2:41 PM EDTTemperature--Respiratory Desn516709/18/2021 1:58 PM ESTOxygen Uryjccmyan898%07/18/2022 1:58 PM ESTInhaled Oxygen Concentration-- Weight--Height--Body Mass Index-- Plan of Treatment Health MaintenanceDue DateLast TvijBvntaivwJlllzpthxhj27/04/5524QCH52 1965HIV Test11/01/1982Hepatitis C Igmllmlw65/04/1986Tdap Sydhraj3311/01/1985Hepatitis A (HAV) Vaccine (optional start 19+ years)11/01/1986Hepatitis B (HBV) Vaccine (1 of 3 - 19+ 3-dose series)11/01/1986Pap Smear040951Hijnygfmfih90/04/2008CRC Eththkfvd55/04/8170Dgzkitpqulm89/04/2013Cologuard (Stool DNA)11/01/2012FIT 11/01/2012Pneumococcal Vaccine(s) (50+ yrs) (1 of 1 - PCV)11/01/2017Shingles (RZV) Vaccine (1 of 2)11/01/2017COVID-19 Vaccine (1 - 2024- season)2025 Influenza Vaccine (#1)2025 Insurance * Guarantor: Jessica Carrero TypeRelation to PatientDate of BirthPhoneBilling AddressPersonal/SwabtlHssm97/04/1966 [address] [id number] * Guarantor: Jessica Carrero TypeRelation to PatientDate of BirthPhoneBilling MssjinpIzjwbrrpkwdylLwlp25/04/1966 [address] [place] [address] Care Teams Team MemberRelationshipSpecialtyStart DateEnd Date Liss Munoz DMD, MD [address] [place] [id number] PhysicianOral & Maxillofacial Surgery12/03/22
--- OUTSIDE RECORDS SUMMARY | 2025-06-09 17:25 | XMS_ITS | Encounter Summary ---
Author Organization [facility] Address [address] [place] [address] Care Team Providers Care Yard Switcher Name Role Phone Minda Yeboah CUFF TURNER Unavailable [phone] Tony Mathur MD Primary Care Provider [phone] Minda Yeboah CUFF TURNER Unavailable [phone] Encounter Details DateTypeDepartmentCare Team (Latest Contact Info)Ydmylpgozsq35/21/2024Clinisync Result Encounter [facility] External Department Unsolicited Provider, Generic External Data Social History Tobacco UseTypesPacks/DayYears UsedDateSmoking Tobacco: Every KxuRpkohvwxjb237.9 Started: 1981Alcohol UseStandard Drinks/WeekCommentsNever0 (1 standard drink = 0.6 oz pure alcohol)coffee: 2-3cups dailyPHQ-2AnswerDate RecordedPatient Health Questionnaire-2 Rppnu197/05/2024CommentsUnknownSex and Gender InformationValueDate RecordedSex Assigned at BirthNot [...] 1:59 PM Lisa Young MAPatient Health Questionnaire-2 Pfqid50009/04/2023 1:59 PM EST Lisa Sparks MA documented as of this encounter Plan of Treatment Not on file documented as of this encounter Procedures Procedure NamePriorityDate/TimeAssociated DiagnosisCommentsXR CERVICAL SPINE 5V 12/19/2023 11:16 AM EDT documented in this encounter Results * XR CERVICAL SPINE 5V (12/19/2023 11:16 AM EDT)Anatomical RegionLaterality ModalityOtherSpecimen (Source)Anatomical Location / LateralityCollection Method / VolumeCollection TimeReceived Time12/19/2023 11:16 AM EDT Narrative 12/19/2023 11:19 AM EDT [facility] ?[address] ? [place], [facility] ?XRay Report ? Signed ? Patient: BENTON CARRERO ? MR#: [id number] ?? : 1965 ?Acct:[id number] ?? Age/Sex: 58 / F ?ADM Date: 12/18/23 ?? Loc: RAD ? Attending Dr: Non-Staff Physician M.D. ? Ordering Physician: Physician,Non-Staff M.D. ?? Date of Service: 12/18/23 ?? Procedure(s): XR cervical spine 5V ?? Accession Number(s): [id number] ? cc: Minda Yeboah CUFF TURNER; Physician,Non-Staff M.DDre ? [facility] ? [address] [place] [address] ? [place] [address] ? Patient Name: ?? BENTON Dylon CARRERO ? MRN: [facility]:[id number] ? date: 1965 ?Sex: F ?? Assigned Patient Location: RAD ?? Current Patient Location: LAB ?? Accession/Order Number: [id number] ?? Exam Date: 12/18/2023 ??15:30 ?Report Date: 12/19/2023 ??11:16 ? At the request of: ?? NON-STAFF ??PHYSICIAN ? Procedure: ??XR cervical spine 5V ? EXAMINATION: XR cervical spine 5V ? HISTORY: Degenerative disc disease M50.30 ? COMPARISON: No relevant comparison available. ? FINDINGS: ?? BONES: No significant spondylosis, scoliosis, fracture, or visible bony ?? lesion. ? DISC SPACES: Slight narrowing C4-5, C5-6, C6-7. ?? PARASPINOUS: Negative. No paraspinous abnormality is seen. ?? OTHER: Negative. ? XR/XR cervical spine 5V ?? IMPRESSION: ? 1. No appreciable acute abnormality. ?? 2. Multilevel mild degenerative disc disease and minimal degenerative facet ?? arthropathy. ? Electronically authenticated by: MAURICIO ??RENAN ?? Date: 12/19/2023 ??11:16 ? Dictated By: ?Mauricio Peacock M.D. ? Signed By: ?05/21/24 1119 ? DD/ 1116 ? TD/TT: ? 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 Radiology, Radiologist, MD - 12/19/2023 [place] [address] XRay Report Signed Patient: BENTON CARRERO MMR#: [id number] : 1965Acct:[id number] Age/Sex: 58 / FADM Date: 12/18/23 Loc: [facility] Attending Dr: Non-Staff Physician Kenneth Ordering Physician: PhysicianNon-Staff Kenneth Date of Service: 12/18/23 Procedure(s): XR cervical spine 5V Accession Number(s): [id number] cc: Minda Yeboah CUFF TURNER; Physician,NonJenniferStaff Kenneth [address] [place] [address] Patient Name: BENTON CARRERO MRN: [id number] date: 1965 Sex: F Assigned Patient [facility] Current Patient Location: LAB Accession/Order Number: [id number] Exam Date: 12/18/2023 15:30 Report Date: 12/19/2023 [...] Mauricio Peacock M.D. 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
--- NOTE | 2025-06-09 17:27 | CT_ITS ---
[facility] [place] [id number] Patient Name: BENTON SORENSEN MRN: [id number] date: 1965 Sex: F Assigned Patient Location: ER Current Patient Location: Accession/Order Number: [id number] Exam Date: 06/09/2025 17:46 Report Date: 06/09/2025 18:33 At the request of: SAMUEL BETH DO Procedure: CT lumbar spine wo con CT lumbar spine wo con 06/09/2025 5:54 PM History:Left lower extremity weakness/numbness TECHNIQUE: Multi detector CT axial slices of the lumbar spine were obtained without IV contrast. Volumetric acquisition sagittal, coronal, and 3-D reconstructions were performed and reviewed on a separate workstation. CT was performed with one or more of the following dose reduction techniques: Automated exposure control, adjustment of the mA and/or kV according to patient size, or use of iterative reconstruction technique. COMPARISON: Lumbar spine x-rays 01/16/2023. FINDINGS: Lumbar vertebral body heights are maintained. There is inferior plate Schmorl's node at L4. Mild multilevel degenerative changes. Disc space narrowing greatest L5-S1 with mild diffuse endplate osteophytosis identified. Mild foraminal narrowing at L5-S1. IMPRESSION: No acute bony abnormality or malalignment. Mild degenerative changes notably L5-S1. Impression dictated by: Skyler Hilliard M.D. 06/09/2025 6:33 PM Dictation Location: [place] [address] Electronically authenticated by: [id number] Y Date: 06/09/2025 18:33
--- OUTSIDE RECORDS SUMMARY | 2025-06-09 17:27 | XMS_ITS | CCD ---
Author Organization [facility] Care Team Providers Care [employer] Nurse Name Role Phone Minda Yeboah Primary Care Provider [phone] MINDA YEBOAH Primary Care Unavailable JUANA PENA Consulting Unavail able ANGIE VALLES Referring Unavailable DHRVU CARRILLO Admitting Unavailable DHRUV CARRILLO Attending Unavailable Unavailable Primary Care Provider UnavailKRYSTIAN Patel Referring Unavailable PROVIDER, UNKNOWN Attending Unavailable PROVIDER, UNKNOWN Admitting Unavailable PROVIDER, UNKNOWN Attending Unavailable PROVIDER, UNKNOWN Admitting Unavailable FLORENTINO CLOUD Referring Unavailable AICHHOLZ, INSULATOR TECHNICIAN MINDA Consulting Unavailable AICHHOLZ, INSULATOR TECHNICIAN MINDA Attending Unavailable AICHHOLZ, INSULATOR TECHNICIAN MINDA Admitting Unavailable AICHHOLZ, INSULATOR TECHNICIAN MINDA Primary Care Unavailable AICHHOLZ, INSULATOR TECHNICIAN MINDA Primary Care Unavailable LANE WELLINGTON Attending Unavailable DR NATACHA BLAKELY V Consulting Unavailable LANE WELLINGTON Admitting Unavailable L[address] WELLINGTON Consulting Unavailable AICHHOLZ, INSULATOR TECHNICIAN MINDA Consulting Unavailable AICHHOLZ, INSULATOR TECHNICIAN MINDA Attending Unavailable AICHHOLZ, INSULATOR TECHNICIAN MINDA Admitting Unavailable AICHHOLZ, INSULATOR TECHNICIAN MINDA Primary Care Unavailable DR CHARLES URRUTIA Consulting Unavailable LANE WELLINGTON Consulting Unavailable TABBY AGUILERA Consulting Unavailable AICHHOLZ, INSULATOR TECHNICIAN MINDA Attending Unavailable AICHHOLZ, INSULATOR TECHNICIAN MINDA Admitting Unavailable AICHHOLZ, INSULATOR TECHNICIAN MINDA Primary Care Unavailable LANE WELLINGTON Admitting Unavailable L[address] WELLINGTON Attending Unavailable AICHHOLZ, INSULATOR TECHNICIAN MINDA Primary Care Unavailable LANE WELLINGTON Admitting Unavailable LANE WELLINGTON Attending Unavailable DR CHARLES URRUTIA Consulting Unavailable AICHHOLZ, INSULATOR TECHNICIAN MINDA Primary Care Unavailable L[address] WELLINGTON Consulting Unavailable JEVON DUARTE Admitting Unavailable DR CHARLES URRUTIA Consulting Unavailable JEVON DUARTE Attending Unavailable AICHHOLZ, INSULATOR TECHNICIAN MINDA Primary Care Unavailable GERALD, JEVON Consulting Unavailable LADAN DUARTELY Attending Unavailable GERALD, JEVON Admitting Unavailable DR CHARLES URRUTIA Consulting Unavailable AICHHOLZ, INSULATOR TECHNICIAN MINDA Primary Care Unavailable GERALD, JEVON Consulting Unavailable AICHHOLZ, INSULATOR TECHNICIAN MINDA Primary Care Unavailable JEVON DUARTE Attending Unavailable GERALD, JEVON Admitting Unavailable WEST, DR NATACHA Cho Consulting Unavailable GERALD, JEVON Consulting Unavailable AICHHOLZ, INSULATOR TECHNICIAN MINDA Consulting Unavailable AICHHOLZ, INSULATOR TECHNICIAN MINDA Attending Unavailable AICHHOLZ, INSULATOR TECHNICIAN MINDA Admitting Unavailable AICHHOLZ, INSULATOR TECHNICIAN MINDA Primary Care Unavailable AICHHOLZ, INSULATOR TECHNICIAN MINDA Primary Care Unavailable AMISH, LANE Dxion Attending Unavailable AMISH, LANE Dixon Admitting Unavailable AICHHOLZ, INSULATOR TECHNICIAN MINDA Primary Care Unavailable LANE WELLINGTON Attending Unavailable REDDY, DR NATACHA Cho Consulting Unavailable LANE WELLINGTON Admitting Unavailable L[address] WELLINGTON Consulting Unavailable Aichholz FLOOR SANDER, Minda Unavailable Tony Mathur MD Primary Care Provider Edilia FLOOR SANDER, Minda Unavailable Unavailable Primary Care Provider Unavailabl e MINDA YEBOAH. Primary Care Unavailable NORM LEONARD Attending Unavailable SZYMANSKI, ALI Attending Unavailable SZYMANSKI, ALI Attending Unavailable SZYMANSKI, ALI Referring Unavailable NESSA, CRISTIAN Attending Unavailable NESSA, CRISTIAN Referring Unavailable Minda Yeboah Attending Unavailable Minda Yeboah Admitting Unavailable Minda Yeboah Attending Provider MINDA YEBOAH Primary Care Physician MINDA YEBOAH Attending Unavailable RICHARD YEBOAHA Attending Unavailable RICHARD YEBOAHA Attending Unavailable MINDA YEBOAH Attending Unavailable YONATHANHMINDA NEAL Attending Unavailable AICHHOLPrimitivo, MINDA Attending Unavailable AICHHOLPrimitivo, MINDA Attending Unavailable EDILIA MINDA Attending Unavailable Saumya Pulido Attending Unavaila Saumya Azul Attending Unavaila Saumya Azul Attending Unavaila Saumya Azul Referring Unavaila ble Saundramini, Saumya Maynard Admitting Unavaila ble Saundramini, Saumya Maynard Attending Unavaila ble Saundramini, Saumya Maynard Attending Unavaila ble Unavailable Primary Care Provider Unavailjose c e Edilia FLOOR SANDER-C, Minda Iniguez Primary Care Provider Edilia FLOOR SANDER-C, Minda Iniguez Attending Provider Neto GRAY, Jama Attending Unavailable Neto GRAY, Jama Attending Unavailable Neto GRAY, Christianea Attending Unavailable Neto GRAY, Christianea Attending Unavailable Edilia FLOOR SANDER, Minda Unavailable Tony Mathur MD Primary Care Provider Edilia FLOOR SANDER, Minda Unavailable Tony Mathur MD Primary Care Provider Allergies Allergy ClassificationReported Allergen(s)Allergy TypeDate of OnsetReaction(s) Facility (3 sources)No Known Medication Allergies; Translations: [No Known Medication Allergies]Propensity to adverse reactions (disorder)[facility] Medications Current Medications MedicationDrug Class(es)DatesSig (Normalized)Sig (Original)Acetaminophen (14 sources)Start: 09-04-7362ybsfvmlfqqzis (TYLENOL) tablet 650 mgStart: 68-51-5477inggkrgyxhvdq (TYLENOL) tablet 650 mgStart: 78-91-5494axzu 650 mg by mouth every six hours as needed for pain, then take 4000 mg by mouth every twenty-four hours as needed for owqz098 mg, Oral, EVERY 6 HOURS PRN, Pain Mild (1-3), Pain Moderate (4-6), Fever, Starting on 06/14/21 at 2104 Maximum dose of acetaminophen is 4000 mg from all sources in 24 hours.acetaminophen (TYLENOL) 325 mg tablet Take 2 tablets (650 mg total) by mouth. Activeacetaminophen 325 mg / HYDROcodone bitartrate 5 mg oral tablet (3 sources)Opioid AgonistStart: 05-26-2022 End: 40-59-1013WATGJffmark-acetaminophen (NORCO) 5-325 MG per tablet Indications: Multiple fractures of foot, left, closed, initial encounter Take 1 tablet by mouth every 8 hours as needed for Pain for up to 7 days. Intended supply: 7 days. Take lowest dose possible to manage pain 21 tablet 0 05/26/2022 06/02/2022 ActiveStart: 03-41-9730SERVYcjmtfg-acetaminophen (NORCO) 5-325 MG per tablet 1 tabletStart: 05-23-2022 End: 49-21-9107XMWTCivozdx-acetaminophen (NORCO) 5-325 MG per tablet 1 tablet acyclovir 800 mg oral tablet (2 sources)Herpesvirus Nucleoside Analog DNA Polymerase Inhibitor, Herpes Simplex Virus Nucleoside Analog DNA Polymerase Inhibitor, Herpes Zoster Virus Nucleoside Analog DNA Polymerase InhibitorStart: 05-25-2022 End: 90-74-3511apka 1 tablet by mouth five times dailyacyclovir (ZOVIRAX) 800 MG tablet Take 1 tablet by mouth 5 times daily for 10 days 50 tablet 0 05/26/2022 06/05/2022 [id number] 200 actuat albuterol 0.09 mg/actuat metered dose inhaler (20 sources)beta2-Adrenergic AgonistStart: 64-08-1005glwc 1 puff(s) by inhalation every four to six hours as neededAlbuterol Sulfate 90 mcg/actuation HFA aerosol inhaler Active 2 PUFF INHALATION EVERY 4-6 HOURS as needed April 25, 2025 12:00am Complies with drug therapyStart: 12-18-2023 End: 09-49-9379zmqr 2 puff(s) by inhalation every six hours for wheezing albuterol HFA 90 mcg/act inhaler Indications: Simple chronic bronchitis (HCC) Inhale 2 puffs every 6 (six) hours if needed for wheezing 18 g 09/16/2024 Active Start: 06-77-4957axzb 2 puff(s) by inhalation every six hours as needed2 puff, Inhalation, EVERY 6 HOURS PRN, Starting on Mon05/24/22 at 1205, Until Discontinued, Wheezing Initiate RT Bronchodilator Protocol: Yes - Inpatient Protocoltake 2 puff(s) by mouth every six hoursalbuterol (PROVENTIL HFA;VENTOLIN HFA) 90 mcg/actuation inhaler inhale 2 puffs by mouth and INTO THE LUNGS every 6 hours if needed for SHORTNESS OF BREATH Activealbuterol HFA 90 mcg/inh MDI (5 sources)Start: 08-55-9235pcbc 2 puff(s) by inhalation every six hours as needed for wheezingalbuterol HFA 90 mcg/inh MDI 2 puff(s), Inhalation, q6hr as needed for wheezing, Refill(s) 0 Start Date: 10/18/21 Status: Ordered Repeat number: 1alendronic acid 70 mg oral tablet (20 sources)BisphosphonateStart: 46-42-8673gqxw 1 tablet by mouth every week Alendronate 70 mg tablet Active 70 MG PO every week April 25, 2025 12:00am Complies with drugtherapyStart: 05-29-2024 End: 91-53-8582lono 1 tablet by mouth in the morningalendronate (Fosamax) 70 MG tablet Indications: Osteoporosis, unspecified osteoporosis type, unspecified pathological fracture presence Take 1 tablet (70 mg) by mouth every 7 (seven) days Take in themorning with a full glass of water, on an empty stomach, and do not take anything else by mouth or lie down for the next 30 min. Ask pharmacist how to take this in relation to your thyroid medicati 12 tablet 1 12/19/2024 03/13/2025 ActiveStart: 04-25-2024 End: 61-05-2493gmvzwdfdtqg (Fosamax) 70 MG tablet Indications: Osteoporosis, unspecified [...] mg / clavulanate 125 mg oral tablet (17 sources)Penicillin-class AntibacterialStart: 31-51-9574zglb 1 tablet by mouth twice daily at mealtimeamoxicillin-pot clavulanate (AUGMENTIN) 875-125 mg per tablet take 1 tablet by mouth twice a day with food 03/20/2023 Active amoxicillin-pot clavulanate (AUGMENTIN) 500-125 mg per tablet Active End: 41-32-4103fbxh 1 tablet by mouth twice dailyamoxicillin-clavulanate (AUGMENTIN) 875-125 MG per tablet Take 1 tablet by mouth 2 times daily 0 Discontinued (Stop Taking at Discharge)Anoro Ellipta (5 sources)Start: 25-83-3124pray 1 puff(s) by inhalation once dailyAnoro Ellipta 1 puff(s), Inhalation, Daily, Refill(s) 0 Start Date: 10/18/21 Status: Ordered Repeat number: 1ascorbic acid 500 mg oral tablet (1 source)Vitamin CStart: 24-31-3873gzqo 2000 mg by mouth twice daily2,000 mg, Oral, 2 TIMES DAILY, First dose on 06/14/21 at 2130atorvastatin 80 mg oral tablet (20 sources)HMG-CoA Reductase InhibitorStart: 12-20-2024 End: 86-37-7617fozt 1 tablet by mouth once daily at bedtimeAtorvastatin 80 mg tablet Active 80 MG PO Daily at bedtime April 25, 2025 12:00am Complies with drug therapyStart: 12-20-2023 End: 51-64-7828cefn 1 tablet by mouth at bedtimeatorvastatin (Lipitor) 40 MG tablet Indications: Mixed hyperlipidemia (CMS/HCC) Take 1 tablet (40 mg) by mouth at bedtime 90 tablet 1 10/14/2024 01/12/2025 ActiveStart: 06-15-2021 atorvastatin (LIPITOR) 10 mg tablet 07/15/2022 Activebenzonatate 200 mg oral capsule (6 sources)Non-narcotic Antitussive End: 54-10-8798nennmpznfxd (TESSALON PERLES) 200 mg capsule 10/17/2024 DiscontinuedbusPIRone hydrochloride 10 mg oral tablet (20 sources)Start: 12-18-2023 End: 72-06-6054sfvi 1 tablet by mouth in the morning, then take 1 tablet by mouth in the evening, then take 1 tablet by mouth at bedtimebusPIRone (Buspar) 10 MG tablet Indications: Anxiety Take 1 tablet (10 mg) by mouth in the morning and 1 tablet (10 mg) in the evening and 1 tablet (10 mg) before bedtime. 90 tablet 3 03/22/2024 04/02/2024 Discontinued (Therapy completed)Start: 06-26-2022 take 1 tablet by mouth three times daily for anxietybusPIRone (BUSPAR) 10 MG tablet take 1 tablet by mouth three times a day for anxiety 0 06/26/2022 Active Start: 94-70-7514dqhk 5 mg by mouth twice daily5 mg, Oral, 2 TIMES DAILY, First dose on Mon05/24/22 at 1245, Until DiscontinuedStart: 04-01-0083kebg 1 tablet by mouth twice dailybusPIRone 10 mg Tab 10 mg = 1 tab(s), Oral, BID, Refills(s) 0 Start Date: 10/18/21 Status: Ordered Repeat number: 1Start: 39-95-2237vrbv 5 mg by mouth twice daily5 mg, Oral, 2 TIMES DAILY, First dose on Mon06/14/21 at 2130cetirizine hydrochloride 10 mg oral tablet (20 sources)Histamine-1 Receptor AntagonistStart: 27-05-3683mlma 1 tablet by mouth once dailyCetirizine 10 mg tablet Active 10 MG PO Daily April 25, 2025 12:00am Complies with drug therapyStart: 06-15-2021 End: 37-03-1659exab 1 tablet by mouth once dailycetirizine 10 mg Tab 10 mg = 1 tab(s), Oral, Daily, Refills(s) 0, Allergy symptoms Start Date: 10/18/21 Status: Ordered Repeat number: 1cholecalciferol 0.05 mg oral capsule (20 sources)Vitamin DStart: 56-86-2247rksz 1 capsule by mouth once daily Cholecalciferol (Vitamin D3) 50 mcg (2,000 unit) capsule Active 2000 UNIT PO Daily April 25, 2025 12:00am Complies with drug therapyStart: 04-02-2024 End: 31-66-6463bayn 1 capsule by mouth once dailycholecalciferol (Vitamin D-3) 50 MCG (1999 UT) capsule Indications: Vitamin D deficiency Take 1 capsule (50 mcg) by mouth Daily 90 capsule 1 12/19/2024 03/19/2025 ActiveStart: 03-16-2024 End: 49-39-9496petj 1 capsule by mouth once dailycholecalciferol (Vitamin D-3) 50 MCG (1999 UT) capsule Take 2,000 Units by mouth Daily 03/16/2024 04/02/2024 Discontinued (Reorder)Start: 94-88-2398ifyo 1 tablet by mouth once dailyvitamin D3 (CHOLECALCIFEROL) 25 MCG (1000 UT) TABS tablet Take 1 tablet by mouth daily 30 tablet 0 06/18/2021 Activecyclobenzaprine hydrochloride 5 mg oral tablet (20 sources)Muscle RelaxantStart: 04-25-2025 End: 99-22-6168dnae 1 tablet by mouth once daily at bedtime as needed for muscle spasmsCyclobenzaprine 5 mg tablet Active 5 MG PO Daily at bedtime as needed for muscle spasm 30 April 28, 2025 2:48pm Complies with drug therapyStart: 05-16-2024 End: 19-97-4799hvvk 1 tablet by mouth once daily as needed for muscle spasms cyclobenzaprine (FLEXERIL) 5 mg tablet Indications: DDD (degenerative disc disease), cervical Take 1 tablet (5 mg total) by mouth nightly as needed for muscle spasms. 90 tablet 1 10/17/2024 ActiveStart: 12-27-2023 End: 50-15-3774bfkc 1 tablet by mouth once daily as needed for muscle spasms cyclobenzaprine (FLEXERIL) 5 mg tablet Indications: DDD (degenerative disc disease), cervical Take 1 tablet (5 mg total) by mouth nightly as needed for muscle spasms. 30 tablet 2 02/13/2024 03/20/2024 Discontinued (Reorder)1 ml denosumab 60 mg/ml prefilled syringe (10 sources)RANK Ligand Inhibitor End: 43-53-4985grvrhdtsr (Prolia) 60 MG/ML solution prefilled syringe Indications: Decreased Bone Mineral Density , Osteoporosis Inject 60 mg under the skin 1 (one) time Every 6 months 04/25/2024 Discontinued (Costof medication) 0.4 ml enoxaparin sodium 100 mg/ml prefilled syringe (3 sources)Low Molecular Weight HeparinStart: 05-24-2022 End: 46-47-7355zpnasvvgew (LOVENOX) injection 40 mgStart: 42-28-8036hneldqpkdy (LOVENOX) injection 30 mgergocalciferol 1.25 mg oral capsule (1 source)Provitamin D2 CompoundStart: 15-60-5868xzub 99349 [IU] by mouth once daily50,000 Units, Oral, DAILY, First dose on Mon06/15/21 at 0900esomeprazole 40 mg delayed release oral capsule (11 sources)Proton Pump InhibitorStart: 59-53-6104wjls 1 capsule by mouth once dailyEsomeprazole Magnesium 40 mg capsule,delayed release(DR/EC) Active 40 MG PO Daily April 25, 2025 12:00am Complies with drug therapyStart: 01-02-2025 take 1 capsule by mouth once dailyNexium 40 mg Cap-EC 40 mg = 1 cap(s), Oral, Daily, # 90 cap(s), Refills(s) 0, Pharmacy: [facility], 169, cm, 01/02/25 13:05:00 EDT, Height/Length Dosing, 89, kg, 01/02/25 13:05:00 EDT, Weight Dosing Start Date: 01/02/25 Status: Ordered Quantity: 90.0 Unit: cap(s) Repeat number: 1etodolac 400 mg oral tablet (7 sources)Nonsteroidal Anti-inflammatory DrugStart: 01-02-2024 End: 99-64-0875qheb 1 tablet by mouth in the morningetodolac (Lodine) 400 MG tablet Take 400 mg by mouth in the morning and 400 mg before bedtime. 01/02/2024 04/02/2024 Discontinued (Therapy completed)famotidine 40 mg oral tablet (11 sources)Histamine-2 Receptor AntagonistStart: 30-30-8194tsqy 1 tablet by mouth once daily at bedtimeFamotidine 40 mg tablet Active 40 MG PO Daily at bedtime April 25, 2025 12:00am Complies withdrug therapyStart: 01-02-2025 take 1 tablet by mouth once daily at bedtimefamotidine 40 mg Tab 40 mg = 1 tab(s), Oral, Once a day (at bedtime), # 90 tab(s), Refills(s) 0, Pharmacy: [facility], 169, cm, 01/02/25 13:05:00 EDT, Height/Length Dosing, 89, kg, 01/02/25 13:05:00 EDT, Weight Dosing Start Date: 01/02/25 Status: Ordered Quantity: 90.0 Unit: tab(s) Repeat number: 12 ml fentaNYL 0.05 mg/ml injection (1 source)Opioid AgonistStart: 41-59-8656ekeziWFV (SUBLIMAZE) injection 25 mcg fluticasone propionate 0.05 mg/actuat metered dose nasal spray (20 sources)CorticosteroidStart: 90-59-2885jfts 1 spray(s) nasal route once dailyFluticasone Propionate (Flonase Allergy Relief) 50 mcg/actuation spray,suspension Active 2 SPRAY INTRANASAL Daily April 25, 2025 12:00am administer into each nostril Complies with drug therapyStart: 04-02-2024 End: 61-76-4546sqrm 2 spray(s) nasal route once dailyfluticasone (Flonase) 50 MCG/ACT nasal spray Indications: Environmental and seasonal allergies Administer 2 sprays into each nostril Daily 48 g 1 12/19/2024 03/19/2025 ActiveStart: 09-19-2023 End: 66-26-9561dnrz 2 spray(s) nasal route in the morningfluticasone (Flonase) 50 MCG/ACT nasal spray Indications: Environmental and seasonal allergies Admin ister 2 sprays into each nostril in the morning. 16 g 3 09/19/2023 04/02/2024 Discontinued (Reorder)Start: 87-53-8174qektkeihfck (FLONASE) 50 mcg/act nasal inhalerStart: 47-90-2766qqmx 1 spray(s) nasal route once daily1 spray, Each Nostril, DAILY, First dose on Mon05/24/22 at 1245, Until DiscontinuedStart: 16-38-2404Iuoledc 2 spray(s), Nasal, Daily, Refill(s) 0, Allergy symptoms Start Date: 10/18/21 Status: OrderedRepeat number: 1Start: 42-77-6421Pqiryfe 2 spray(s), Nasal, Daily, Refill(s) 0 Start Date: 10/18/21 Status: Ordered Repeat number: 1Start: 80-47-6115csuy 1 spray(s) nasal route once daily1 spray, Each Nostril, DAILY, First dose on Mon06/15/21 at 0900take 2 spray(s) nasal route once dailyfluticasone propionate (FLONASE) 50 mcg/actuation nasal spray instill 2 sprays into each nostril once daily Activetake 1 spray(s) nasal route once dailyfluticasone (FLONASE) 50 MCG/ACT nasal spray 1 spray by Each Nostril route daily 0 Activefolic acid 1 mg oral tablet (20 sources)Start: 52-93-7518nycs 1 tablet by mouth once dailyFolic Acid 1 mg tablet Active 1 MG PO Daily April 25, 2025 12:00am Complies with drug therapyStart: 08-19-2024 End: 83-04-0537jofa 1 tablet by mouth once daily in the morningfolic acid (FOLVITE) 1 mg tablet Take 1 tablet (1 mg total) by mouth in the morning. Except days oftaking methotrexate.. 90 tablet 1 10/17/2024 04/09/2025 Discontinued gabapentin 300 mg oral capsule (3 sources)Anti-epileptic AgentStart: 29-85-9893yowq 1 capsule by mouth in the eveningGabapentin 300 mg capsule Active 300 MG PO .COMPLEX 60 April 28, 2025 12:00am 300 mg orally start with 1 pill at bedtime for 7 days, then increase to 1 pill am and 1 pill pm; Complies with drugtherapyStart: 06-30-2022 gabapentin (NEURONTIN) 300 MG capsule 1 (one) capsule by mouth as directed, start with 1 at bedtimefor... (REFER TO PRESCRIPTION NOTES). 0 06/30/2022 Active hydroxychloroquine sulfate 200 mg oral tablet (17 sources)Antimalarial, Antirheumatic AgentStart: 07-01-2023 End: 81-92-6908sjxh 1 tablet by mouth in the morninghydroxychloroquine (PLAQUENIL) 200 mg tablet Take 1 tablet (200 mg total) by mouth in the morning. 90 tablet 1 02/13/2024 ActivehydrOXYzine pamoate 25 mg oral capsule (5 sources)AntihistamineStart: 56-08-1192pups 1 capsule by mouth every eight hours as needed for anxietyVistaril 25 mg Cap 25 mg = 1 cap(s), Oral, q8hr, PRN as needed for anxiety, Refills(s) 0 Start Date: 10/18/21 Status: Ordered Repeat number: 1ibuprofen 800 mg oral tablet (20 sources)Nonsteroidal Anti-inflammatory DrugStart: 04-13-0505xatn 1 tablet by mouth every eight hours as neededibuprofen 800 MG tablet Take 800 mg by mouth every 8 (eight) hours if needed 04/05/2024 Activelevothyroxine sodium 0.05 mg oral tablet (20 sources)l-ThyroxineStart: 63-72-5027vbps 1 tablet by mouth once daily Levothyroxine 50 mcg tablet Active 50 MCG PO Daily April 25, 2025 12:00am Complies with drug therapyStart: 12-20-2023 End: 58-43-1169xhle 1 tablet by mouth before mealtimelevothyroxine (Synthroid) 50 MCG tablet Indications: Hypothyroidism (acquired) Take 1 tablet (50 mcg) by mouth in the morning. Take before meals. 90 tablet 1 12/19/2024 03/19/2025 ActiveStart: 03-61-0628drfhnzuilpyhu (SYNTHROID, LEVOTHROID) 75 MCG tablet 04/12/2023 ActiveStart: 37-30-3496pusazzzalbczk (SYNTHROID) 25 MCG tabletStart: 28-51-3725ehhp 1 tablet by mouth once dailylevothyroxine 25 mcg (0.025 mg) Tab 25 mcg = 1 tab(s), Oral, Daily, Refills(s) 0, Thyroid Start Date: 10/18/21 Status: Ordered Repeat number: 1Start: 09-37-2907wdos 25 ug by mouth once daily 25 mcg, Oral, DAILY, First dose on Mon05/24/22 at 1245, Until Discontinued Tube feeding (TF) interaction, obtain physician order to manage, recommend holding TF for 30 minutes before and after dose.linaclotide 0.145 mg oral capsule (12 sources)Guanylate Cyclase-C AgonistStart: 08-20-0965oibs 1 capsule by mouth once dailyLinaclotide (Linzess) 145 mcg capsule Active 145 MCG PO Daily April 25, 2025 12:00am Complieswith drug therapyStart: 01-78-0265meoe 1 capsule by mouth once dailyLinzess 145 MCG capsule Take 145 mcg by mouth Daily 01/02/2025 ActiveStart: 65-88-3829zert 1 capsule by mouth once dailyLinzess 145 mcg oral capsule 145 mcg = 1 cap(s), Oral, Daily, # 90 cap(s), Refills(s) 3, Pharmacy: [facility], 169, cm, 01/29/25 12:57:00 EDT, Height/Length Dosing, 89, kg, 01/29/25 12:57:00 EDT, Weight Dosing Start Date: 03/21/25 Status: Ordered Quantity: 90.0 Unit: cap(s) Repeat number: 4Magnesium (4 sources)Start: 59-01-4890Jwlqknzls Magnesium, See Instructions Start Date: 01/02/25 Status: Ordered Repeat number: 1magnesium oxide 400 mg oral tablet (20 sources)Start: 96-02-4722xhbx 1 tablet by mouth once dailyMagnesium Oxide 400 mg (241.3 mg magnesium) tablet Active 400 MG PO Daily April 25, 2025 12:00am Complies with drug therapyStart: 04-12-2023 End: 04-12-4689prroafbxm oxide (MAGOX) 400 mg tablet 04/12/2023 Ejkaru60 ml magnesium sulfate 40 mg/ml injection (1 source)Start: 53-06-9924hxhq 2000 mg intravenously every hour as needed2,000 mg, IntraVENous, at 25 mL/hr, Administer over 2 Hours, PRN, Other, Magnesium Replacement, Starting on Mon05/24/22 at 1217 Mg Lab Replacement Action 1.4-1.6 2 gram IVPB x 1 doses (2 grams total) 1.0- 1.3 2 gram IVPB x 2 doses (4 grams total) Less than 1.0 CALL PHYSICIAN and 2 gram IVPB x 2 doses (4 grams total) Infuse at 1 gram/hr. Repeat Mag level nextAM. Not for use in Patients with CrCl less than 30 mL/min.meloxicam 15 mg oral tablet (12 sources)Nonsteroidal Anti-inflammatory DrugStart: 07-13-2023 End: 62-05-8027hybg 1 tablet by mouth in the morningmeloxicam (Mobic) 15 MG tablet Take 1 tablet by mouth in the morning. 07/13/2023 04/02/2024 Discontinued (Therapy completed)methotrexate 2.5 mg oral tablet (20 sources)Folate Analog Metabolic InhibitorStart: 11-68-5878gijv 5 tablets by mouth every weekMethotrexate Sodium 2.5 mg tablet Active 12.5 MG PO every week April 25, 2025 12:00am Complies with drug therapyStart: 74-53-6361ywdd 5 tablets by mouth every weekmethotrexate 2.5 mg chemo tablet take 5 tablets by mouth once a week. 60 tablet 1 04/09/2025 ActiveStart: 08-19-2024 End: 53-91-7936tolckjtdmsyq 2.5 mg chemo tablet 5 tablets once a week. Dispense 2.5 mg tablets. 60 tablet 1 10/17/2024 04/09/2025 Discontinuedtake 5 tablets by mouth every weekmethotrexate 2.5 MG tablet Take 12.5 mg by mouth 1 (one) time per week. Activemorphine (PF) injection 2 mg (1 source)Start: 06-10-6438fyxpghtd (PF) injection 2 mgMulti Vitamins oral tablet (1 source)Start: 93-67-3725eanc 1 tablet by mouth once dailyMulti Vitamins oral tablet 1 tab(s), Oral, Daily, Refill(s) 0 Start Date: 10/18/21 Status: [facility] number: 1nitrofurantoin, macrocrystals 25 mg / nitrofurantoin, monohydrate 75 mg oral capsule (1 source)Nitrofuran AntibacterialStart: 12-22-2024 End: 72-21-3315ulrc 1 capsule by mouth in the morningnitrofurantoin, macrocrystal-monohydrate, (Macrobid) 100 MG capsule Indications: UTI (urinary tractinfection), uncomplicated Take 1 capsule (100 mg) by mouth in the morning and 1 capsule (100 mg) before bedtime. Do all this for 7 days. 14 capsule 12/22/2024 12/29/2024 Activeondansetron (ZOFRAN-ODT) disintegrating tablet 4 mg (2 sources)Start: 94-94-7508rinycivnjhb (ZOFRAN-ODT) disintegrating tablet 4 mg Start: 48-53-8109bmtctveyqyh (ZOFRAN-ODT) disintegrating tablet 4 mgpantoprazole 40 mg delayed release oral tablet (15 sources)Proton Pump InhibitorStart: 12-17-2024 End: 93-55-1500sspd 1 tablet by mouth before mealtimepantoprazole (ProtoNix) 40 MG EC tablet Indications: Gastroesophageal reflux disease, unspecified whether esophagitis present Take 1 tablet (40 mg) by mouth in the morning. Take before meals. Do not crush, chew, or split. 30 tablet 1 01/09/2025 01/13/2025 Discontinued (Ineffective)Start: 20-48-9387vtjm 40 mg by mouth once daily40 mg, Oral, DAILY, First dose on Mon05/24/22 at 1245, Until Discontinued Do not crush or break.polyethylene glycol 3350 19181 mg powder for oral solution (3 sources)Osmotic LaxativeStart: 45-90-2510gvmkymgngfgj glycol (GLYCOLAX) packet 17 gStart: 32-65-0300ooud 17 g by mouth once dailyMiraLax 17 gm, Oral, Daily Constipation, Refill(s) 0 Start Date: 10/18/21 Status: Ordered Repeat numb er: 1Start: 88-80-279794 g, Oral, DAILY PRN, Constipation, Starting on 06/14/21 at 2104 First line therapy for constipationPotassium Chloride (2 sources)Start: 68-82-2020hrwpfxajv chloride (KLOR-CON M) extended release tablet 40 mEqStart: 15-97-0917ccbdsrkrk chloride (KLOR-CON M) extended release tablet 40 mEqpotassium chloride 40 mEq in lactated ringers 1,000 mL infusion (1 source)Start: 11-48-8187itpdvudbn chloride 40 mEq in lactated ringers 1,000 mL infusionpredniSONE 5 mg oral tablet (5 sources)Start: 12-43-8229mvcymmKZIW (DELTASONE) 5 mg tablet 7.5 mg daily for one week then 5 mg daily for one week then 2.5 mg daily for one week 21 tablet 10/17/2024 ActiveStart: 08-19-2024 End: 55-35-8949yzih 1 tablet by mouth in the morningpredniSONE (DELTASONE) 10 mg tablet Take 1 tablet (10 mg total) by mouth in the morning. 30 tablet 1 08/19/2024 10/17/2024 Discontinued (Reorder)propranolol hydrochloride 10 mg oral tablet (4 sources)beta-Adrenergic BlockerStart: 49-42-2644hmdv 40 mg by mouth twice daily40 mg, Oral, 2 TIMES DAILY, First dose on 06/14/21 at 2130Start: 02-34-9688ehovadxjjxr (INDERAL) 40 MG tablet 2 times daily. 0 04/10/2013 Active psyllium 3400 mg powder for oral suspension (4 sources)Start: 68-66-0240Dlewpkfrr 3.4 g/5.2 g oral powder 3.4 gram, Oral, TID, PRN for constipation, # 1,042 gram, Refills(s) 0, Pharmacy: [facility], 169, cm, 01/02/25 13:05:00 EDT, Height/Length Dosing, 89, kg, 01/02/25 13:05:00 EDT, Weight Dosing Start Date: 01/02/25 Status: Ordered Quantity: 1042.0 Unit:g Repeat number: 1 Indications: Diarrhea, unspecified; Encounter for screening for malignant neoplasm of colon; Hematemesis; Gastro- esophageal reflux disease without esophagitis;QUEtiapine 50 mg oral tablet (20 sources)Atypical AntipsychoticStart: 27-06-8344uuui 3 tablets by mouth once at bedtimeQuetiapine 50 mg tablet Active 150 MG PO once at bedtime April 25, 2025 12:00am Complies withdrug therapyStart: 12-18-2023 End: 24-30-8829rdgi 3 tablets by mouth at bedtimeQUEtiapine (SEROquel) 50 MG tablet Indications: Anxiety and depression Take 3 tablets (150 mg) by mouth at bedtime 270 tablet 1 12/19/2024 03/19/2025 ActiveStart: 11-72-8665LIUjleyvnc (SEROQUEL) 100 MG tabletsertraline 100 mg oral tablet (20 sources)Serotonin Reuptake InhibitorStart: 06-64-5300ywyd 1 tablet by mouth once daily in the eveningZoloft 50 mg Tab 50 mg = 1 tab(s), Oral, qPM, Refills(s) 0 Start Date: 10/18/21 Status: Ordered Repeat number: 1Start: 06-15-2021 End: 77-57-4959xuaa 1 tablet by mouth once dailySertraline 100 mg tablet Active 100 MG PO Daily April 25, 2025 12:00am Complies with drug therapy topiramate 100 mg oral tablet (20 sources)Start: 66-41-4641dakf 1 tablet by mouth twice dailyTopiramate 25 mg tablet Active 25 MG PO Twice daily April 25, 2025 12:00am Complies with drugtherapyStart: 30-63-5269uqyk 1 tablet by mouth twice dailyTopiramate 100 mg tablet Active 100 MG PO Twice daily April 25, 2025 12:00am Complies with drug therapyStart: 45-40-4993gyom 1 tablet by mouth twice mtane892 mg, Oral, 2 TIMES DAILY, First dose on Mon05/24/22 at 1245, Until Discontinued It is not recommended to crush, break, or chew immediate release tablets due to bitter taste.Start: 10-18-2021 End: 40-36-6236Xjvckak 100 mg Tab 100 mg = 1 tab(s), Oral, BID, along with 25mg, Refills(s) 0 Start Date: 10/18/21 Status: Ordered Repeat number: 1Start: 06-14-2021 End: 41-32-1316Oaqiesm 25 mg Tab 25 mg = 1 tab(s), Oral, BID, along with 100mg, Refills(s) 0 Start Date: 10/18/21 Status: Ordered Repeat number: 1take 5 tablets by mouth twice dailytopiramate (TOPAMAX) 25 MG tablet Take 125 mg by mouth 2 times daily 0 ActivetraZODone hydrochloride 50 mg oral tablet (5 sources)Serotonin Reuptake InhibitorStart: 44-73-1550pwwp 1 tablet by mouth once daily at bedtimetraZODONE 50 mg Tab 50 mg = 1 tab(s), Oral, Once a day (at bedtime), Refills(s) 0, Sleep Start Date: 10/18/21 Status: Ordered Repeat number: 1Umeclidinium-Vilanterol (20 sources)Anticholinergic, beta2-Adrenergic AgonistStart: 04-25-2025 Umeclidinium-Vilanterol (Anoro Ellipta) 62.5-25 mcg/actuation blister with device Active INHALATIONSeptember 2024 12:00am Complies with drug therapy Start: 12-18-2023 End: 19-47-0691xwmc 1 puff(s) by inhalation once dailyUmeclidinium-Vilanterol (Anoro Ellipta) 62.5-25 MCG/ACT aerosol powder Indications: Simple chronic b ronchitis (HCC) Inhale 1 puff Daily 3 each 1 12/19/2024 03/19/2025 ActiveStart: 08-02-7304dgtn 1 puff(s) by mouth once dailyAnoro Ellipta 62.5-25 MCG/ACT AEPB inhalation powder inhale 1 puff by mouth and INTO THE LUNGS oncedaily 0 06/17/2022 ActiveStart: 98-82-0141glor 1 puff(s) by inhalation once daily1 puff, Inhalation, DAILY, First dose on Mon06/15/21 at 0800vitamin B12 (4 sources)Vitamin Q96Emygm: 02-46-2704Empsjlq B12 Refills(s) 0, Prophylaxis Start Date: 01/02/25 Status: Ordered Repeat number: 1Start: 71-20-5423Rbzfpbu B12 Refills(s) 0 Start Date: 01/02/25 Status: Ordered Repeat number: 1zinc sulfate 220 mg oral capsule (4 sources)Start: 20-29-3282byen 2 capsules by mouth once dailyzinc sulfate (ZINCATE) 220 (50 Zn) MG capsule Take 2 capsules by mouth daily 30 capsule 3 06/19/2021 Active Completed/Discontinued Medications MedicationDrug Class(es)DatesSig (Normalized)Sig (Original)ARIPiprazole 5 mg oral tablet (20 sources)Atypical AntipsychoticStart: 04-12-2023 End: 83-06-0390agdt 1 tablet by mouth once dailyARIPiprazole (Abilify) 5 MG tablet Indications: Major depressive disorder with single episode, in remission Take 1 tablet (5 mg) by mouth Daily 90 tablet 1 12/19/2024 02/24/2025 Discontinued (Therapycompleted)casirivimab-imdevimab 1,200 mg in sodium chloride 0.9 % 110 mL IVPB (1 source)Start: 06-15-2021 End: 21-02-3544nosgpmksloa-imdevimab 1,200 mg in sodium chloride 0.9 % 110 mL IVPBdexamethasone phosphate 10 mg/ml injectable solution (1 source)CorticosteroidStart: 06-14-2021 End: 09-11-7713uzipfewpacaur (DECADRON) injection 10 mggadoteridol (PROHANCE) injection 13 mL (1 source)Start: 06-16-2021 End: 48-50-7896hwrktczvpuf (PROHANCE) injection 13 mLiopamidol (ISOVUE-370) 76 % injection 75 mL (1 source)Start: 06-14-2021 End: 81-29-1744aeeekrfrg (ISOVUE-370) 76 % injection 75 mL1 ml LORazepam 2 mg/ml injection (1 source)BenzodiazepineStart: mg, IntraVENous, EVERY 6 HOURS PRN, Starting on Mon05/24/22 at 1220, Until Discontinued, Seizures1 ml morphine sulfate 2 mg/ml cartridge (1 source)Opioid AgonistStart: 05-24-2022 End: 62-76-7654hilieusj (PF) injection 2 mg24 hr nicotine 0.875 mg/hr transdermal system (9 sources)Cholinergic Nicotinic AgonistStart: 04-02-2024 End: 26-91-6738pmwxxqeu (Nicoderm, Step 1) 21 MG/24HR patch Indications: Tobacco user Place 1 patch over 24 hours on the skin 1 (one) time each day at the same time 30 patch 1 04/02/2024 04/29/2024 Discontinued (Therapy completed)Start: 70-27-1876qdgbg 1 dose transdermal route once daily1 patch, TransDERmal, Administer over 24 Hours, DAILY, [...] / tiotropium 0.0025 mg/actuat inhalation spray (1 source)Anticholinergic, beta2-Adrenergic AgonistStart: 07-94-2174yxcc 2 puff(s) by inhalation once daily2 puff, Inhalation, DAILY, First dose on Mon05/24/22 at 1245, Until Discontinued Substituted for Umeclidinium-Vilanterol (ANORO ELLIPTA).omeprazole 40 mg delayed release oral capsule (20 sources)Proton Pump InhibitorStart: 10-18-2021 End: 83-57-0731adci 1 capsule by mouth before mealtimeomeprazole (PriLOSEC) [address] capsule Indications: Gastroesophageal reflux disease, unspecified whether esophagitis present Take 1 capsule (40 mg) by mouth in the morning. Take before meals. 90 capsule 1 10/14/2024 12/17/2024 Discontinued (Ineffective)take 2 capsules by mouth once dailyomeprazole (PRILOSEC) 20 MG delayed release capsule Take 40 mg by mouth daily 0 Active2 ml ondansetron 2 mg/ml injection (2 sources)Serotonin-3 Receptor AntagonistStart: 05-24-2022 End: 38-22-4023huewwtmneos (ZOFRAN) injection 4 mgStart: 06-14-2021 End: 78-38-8248kbhhnuatmwp (ZOFRAN) injection 4 mgphentermine hydrochloride 37.5 mg oral tablet (20 sources)Sympathomimetic Amine AnorecticStart: 01-22-2024 End: 37-07-3282aovs 1 tablet by mouth before mealtimephentermine (Adipex-P) 37.5 MG tablet Indications: Obesity with body mass index (BMI) of 30.0 to 39.9 Take 1 tablet (37.5 mg) by mouth in the morning. Take before meals. 30 tablet 03/26/2024 04/29/2024 Discontinued (Reorder)polyethylene glycol 3350 873057 mg / potassium chloride 1480 mg / sodium bicarbonate 5720 mg / sodium chloride 15961 mg powder for oral solution (1 source)Osmotic LaxativeStart: 53-37-1276PdJSRMBK [place] oral powder for reconstitution See Instructions, 1 EA, Refill(s) 0, follow up physicians insctructions, [facility], 169, cm, 01/02/25 13:05:00 EDT, Height/Length Dosing, 89, kg, 01/02/25 13:05:00 EDT, Weight Dosing Start Date: 01/02/25 Status: Ordered Quantity: 1.0 Unit: EA Repeat number: 1 Indications: Diarrhea, unspecified; Encounter for screening for malignant neoplasm of colon; Hematemesis; Gastro-esophageal reflux disease without esophagitis;potassium chloride 60 mEq in dextrose 5 % 600 mL IVPB (1 source)Start: 06-16-2021 End: 76-37-8149kdgpbftzp chloride 60 mEq in dextrose 5 % 600 mL IVPB5 ml sodium chloride 9 mg/ml injection (9 sources)Start: 53-17-8875aijz 1 dose intravenously twice daily5-40 mL, IntraVENous, EVERY 12 HOURS SCHEDULED (2 [...] = 10 mL Midline or Central Line =20 mL/lumenStart: 05-24-2022 IntraVENous, at 5-250 mL/hr, PRN, if patient [...] mL/hr or less into rate field of order.Start: 59-17-6979oxkz 5-40 mL intravenously once as needed5-40 mL, IntraVENous, PRN, Starting on Mon05/24/22 at 1212, Until Discontinued, Line Care, After every IV line use For Line Patency: Peripheral IV = 5 mL; Midline or Central Line = 10 mL/lumen.&n bsp; If following IV push medication, administer flush [...] mL Midline or Central Line = 20 mL/lumenStart: 71-12-9217hhbc 1 dose intravenously twice daily5-40 mL, IntraVENous, EVERY 12 HOURS SCHEDULED (2 [...] mL Midline or Central Line = 20 mL/lumenStart: 81-38-5159mplu 10 mL intravenously once as iqthfg51 mL, IntraVENous, PRN, Line Care, After every IV line use, Starting on Mon06/14/21 at 2104Start: 06-14-2021 End: ,000 mL, IntraVENous, at 1,000 mL/hr, Administer over 1 Hours, ONCE, On Mon06/14/21 at 2130, For 1 dose For adult patients weighing > 55 kg (120 lbs.) and less than <50 years of age initiate 0.9NS at 500 mL/ hr. All bolus orders are to be given over 10 to 15 minutesStart: 06-14-2021 End: 93-58-8196AvgfcQQCnwp, at 150 mL/hr, CONTINUOUS, Starting on Mon06/14/21 at 2130Start: 21-99-3372ppvm 25 mL intravenously every hour as yncwmg79 mL, IntraVENous, at 100 mL/hr, PRN, If patient receiving piggyback infusions without ordered maintenance IV fluids or with frequent/long duration piggyback infusions, Starting on Mon06/14/21 at 2104 Administer at the same rate as the piggyback being infused.Start: 06-14-2021 End: .9 % sodium chloride bolus Problems Active Problems Problem ClassificationProblemDateDocumented DateEpisodic/ChronicAnxiety disorders (20 sources)Generalized anxiety disorder; Translations: [Generalized anxiety disorder]Onset: 07-03-2023 Resolved: 151525-39-5133FephazpYflwbfa kidney disease (19 sources)Chronic kidney disease stage 3A ; Translations: [Chronic kidney disease, stage 3a (HCC)]Onset: 380979-67-6791UgvuoctQnmuzof obstructive pulmonary disease and bronchiectasis (20 sources)Chronic bronchitis; Translations: [Unspecified chronic bronchitis] Onset: 08-20-2023 Resolved: 355056-76-9356QqepqpfPhvmrqyxlc and other anemia (5 sources)Pypefm62-62-5894PekaxjlgEhdcraykn of lipid metabolism (20 sources)Hyperlipidemia, unspecified; Translations: [Mixed hyperlipidemia] Onset: 11-25-2022 Resolved: 273877-69-1470PimcsrcQhhckxxcq of teeth and jaw (2 sources)Carious exposure of pulp ; Translations: [Dental caries, unspecified] EpisodicEsophageal disorders (20 sources)Gastroesophageal reflux disease; Translations: [Gastro-esophageal reflux disease without esophagitis]Onset: 927602-02-4776FkarbkaVjnqs and electrolyte disorders (15 sources)Dehydration; Translations: [Dehydration]Onset: 06-15-2021 Resolved: 92-15-0154MuqexnqvEothaeiu of lower limb (20 sources)Closed fracture of left foot; Translations: [Unspecified fracture of left foot, initial encounter for closed fracture]Onset: 77-13-1199Uncgnoto Headache; including migraine (20 sources)Migraine; Translations: [Migraine, unspecified, not intractable, without status migrainosus]Onset: 713460-00-1832DjnkqfnFtawukbw; including migraine (2 sources)Headache; Translations: [Headache]Onset: 124421-26-1406Iztwnnum Joint disorders and dislocations; trauma-related (5 sources)Dislocation of tarsometatarsal joint of left foot, subsequent encounter; Translations: [DISLOC TMT JOINT LT FOOT SUBSQT]Onset: 08-12-2022 EpisodicMood disorders (20 sources)Major depression, single episode; Translations: [Major depressive disorder, single episode, in fullremission]Onset: 07-03-2023 Resolved: 864219-47-5032NjxyaptNrpiljimrbo deficiencies (20 sources)Vitamin D deficiency; Translations: [Vitamin D deficiency, unspecified]Onset: 060186-93-4164OouuwgdZtfcketyooqzqs (3 sources)Arthritis; Translations: [Unspecified osteoarthritis, unspecified site]Onset: 517746-42-3663XstvzwxBlgiyaravszd (20 sources)Age-related osteoporosis without current pathological fracture; Translations: [Senile osteoporosis]Onset: 875316-78-6852TzifprwVndcm aftercare (4 sources)Patient encounter status; Translations: [Encounter for therapeutic drug level monitoring]40-62-0783BcbjklpqNvote circulatory disease (10 sources)Raynaud's disease; Translations: [Raynaud's syndrome without gangrene]Onset: 036097-76-2555XqdapnaOxczr connective tissue disease (4 sources)Myalgia, unspecified site; Translations: [MYALGIA UNSPECIFIED SITE] Onset: 42-64-6263YnqoqgwkBzjxn connective tissue disease (5 sources)Pain in left foot; Translations: [PAIN IN LEFT FOOT]Onset: 06-02-2022 EpisodicOther gastrointestinal disorders (1 source)Altered bowel function; Translations: [Change in bowel habit]Onset: 75-91-3082KwoswpjkLgbdp nervous system disorders (20 sources)Chronic pain; Translations: [Other chronic pain]Onset: 09-11-2023 82-09-0685SclalahVxezx nervous system disorders (1 source)H/O: migraine; Translations: [Personal history of other diseases of the nervous system and sense organs]30-76-3039FxbypxdrWikhx non-traumatic joint disorders (5 sources)Pain in left ankle and joints of left foot; Translations: [PAIN IN LEFT ANKLE]Onset: 25-32-2490KzpgrvlrZwppu non-traumatic joint disorders (2 sources)Multiple joint pain; Translations: [Pain in unspecified joint] 71-20-1969DhmvjhsrDadiv non-traumatic joint disorders (1 source)Pain in unspecified joint; Translations: [Pain in unspecified joint] Onset: 42-19-0347NuccloqxTmvpc nutritional; endocrine; and metabolic disorders (20 sources)Hypomagnesemia; Translations: [Hypomagnesemia]Onset: 08-14-2023 68-55-8553RcplnvnDoxno nutritional; endocrine; and metabolic disorders (20 sources)Body mass index 30+ - obesity; Translations: [Obesity, unspecified] Onset: 958447-50-0637NsaoelkQwrwf nutritional; endocrine; and metabolic disorders (15 sources)Hypercalcemia; Translations: [Hypercalcemia]Onset: 12-19-2024 16-24-7140NwaenvgFccyd nutritional; endocrine; and metabolic disorders (5 sources)Unintentional weight cwsw39-40-7223MiulncdlUelcd upper respiratory disease (20 sources)Allergic disposition; Translations: [Other allergic rhinitis]Onset: 022980-79-5011AhmbdccVtwhq upper respiratory disease (5 sources)Seasonal turzeuh79-41-7872XcdytfxDdctapnqz (except that caused by tuberculosis or sexually transmitted disease) (1 source)Infective pneumonia; Translations: [Pneumonia, unspecified organism] EpisodicResidual codes; unclassified (20 sources)Obstructive sleep apnea syndrome; Translations: [Obstructive sleep apnea (adult) (pediatric)]Onset: 738238-32-7581QkavcilDmklysph codes; unclassified (4 sources)Asymptomatic menopausal state; Translations: [ASYMPTOMATIC MENOPAUSAL STATE]Onset: 18-97-1701LeqcadrbEqsvklue codes; unclassified (1 source)Pain, unspecified; Translations: [Pain, unspecified]Onset: 12-22-2023 EpisodicRheumatoid arthritis and related disease (20 sources)Rheumatoid arthritis; Translations: [Rheumatoid arthritis, unspecified]Onset: 188035-98-2372JgtfupmFjplawofqvf; intervertebral disc disorders; other back problems (20 sources)Lumbosacral spondylosis; Translations: [Spondylosis without myelopathy or radiculopathy, lumbosacral region]Onset: ChronicSpondylosis; intervertebral disc disorders; other back problems (2 sources)Low back pain; Translations: [Radiculopathy, lumbar region]04-28-2025 EpisodicSubstance-related disorders (20 sources)Tobacco dependence caused by cigarettes; Translations: [Nicotine dependence, cigarettes, uncomplicated]Onset: 875700-78-2228TclqqqkExycqbrh lupus erythematosus and connective tissue disorders (5 sources)Undifferentiated connective tissue disease; Translations: [Systemic involvement of connective tissue, unspecified]Onset: hronic Thyroid disorders (20 sources)Hypothyroidism; Translations: [Hypothyroidism, unspecified]Onset: 391275-21-0886EhttkscWnekyiiijhln (1 source)Other intervertebral disc degeneration, lumbar region with discogenic back pain only; Translations:[Other intervertebral disc degeneration, lumbar region with discogenic back pain only]Onset: 45-76-2072Gstzt infection (6 sources)COVID-19; Translations: [Other encephalopathy]Onset: 06-15-2021 Chronic Past or Other Problems Problem ClassificationProblemDateDocumented DateEpisodic/ChronicEpilepsy; convulsions (20 sources)Epilepsy; Translations: [Epilepsy, unspecified, not intractable, without status epilepticus]Onset: 07-18-2022 Resolved: 223687-36-9297AhblemeSuubajli; convulsions (20 sources)Seizure; Translations: [Unspecified convulsions]Onset: 05-25-2022 EpisodicGastrointestinal hemorrhage (20 sources)Hematemesis; Translations: [Hematemesis]Onset: EpisodicImmunizations and screening for infectious disease (1 source)Rheumatoid factor positive; Translations: [Other specified abnormal immunological findings in serum]37-98-4484TbuloevrRdxjzx and vomiting (20 sources)Intractable nausea and vomiting; Translations: [Nausea with vomiting, unspecified]Onset: 60-10-0019OjvrkgcsHzofa aftercare (1 source)Encounter for therapeutic drug level monitoring; Translations: [Encounter for therapeutic drug level monitoring]Onset: 92-11-3558TejxicotNglzj and unspecified benign neoplasm (10 sources)Polyp of colon; Translations: [Polyp of colon]Onset: 02-24-2025 33-53-2410StrzseyrDgnqn connective tissue disease (2 sources)Fibromyalgia; Translations: [Fibromyalgia]82-51-2060PfogfyiwZouam connective tissue disease (2 sources)Bilateral trochanteric bursitis; Translations: [Trochanteric bursitis, right hip]97-90-8448TqqjzcstQynqu connective tissue disease (1 source)Fibromyalgia; Translations: [Fibromyalgia]Onset: 25-96-5991Sqiyffsg Other connective tissue disease (1 source)Trochanteric bursitis, right hip; Translations: [Trochanteric bursitis, right hip]Onset: 75-79-3229WhuirkmlUgcrb connective tissue disease (1 source)Trochanteric bursitis, left hip; Translations: [Trochanteric bursitis, left hip]Onset: 54-31-2901OdzmdocvQaodk gastrointestinal disorders (20 sources)Constipation; Translations: [Constipation, unspecified]Onset: 120170-35-3239FgoidiljTgujo gastrointestinal disorders (20 sources)Diarrhea; Translations: [Diarrhea, unspecified]Onset: 12-17-2024 19-10-6809HjvrqjseSykjz nervous system disorders (5 sources)Skin sensation disturbance; Translations: [Unspecified disturbances of skin sensation]Onset: 508355-49-4446LfvbmhwiVztei nutritional; endocrine; and metabolic disorders (20 sources)Abnormal weight gain; Translations: [Abnormal weight gain]Onset: 376404-78-2932KqbuhhtdTnnez nutritional; endocrine; and metabolic disorders (8 sources)Weight decreased; Translations: [Abnormal weight loss]Onset: 044925-97-0349UsnjhwshWsnno screening for suspected conditions (not mental disorders or infectious disease) (20 sources)Serum creatinine raised; Translations: [Other specified abnormal findings of blood chemistry]Onset: 383250-09-5341SsovizexEsmbv upper respiratory infections (20 sources)Acute upper respiratory infection; Translations: [Acute upper respiratory infection, unspecified]Onset: 09-26-2023 Resolved: 389592-28-5035HedkmgkxZsrrqyno codes; unclassified (6 sources)Disorientated; Translations: [Disorientation, unspecified]Onset: 89-35-5009JyploxyhJduqcmza codes; unclassified (20 sources)Tobacco user; Translations: [Tobacco use]Onset: 09-12-2012 Resolved: 742296-20-9035OzbptrcoEmnmqmfo codes; unclassified (20 sources)Insomnia; Translations: [Insomnia, unspecified]Onset: 08-14-2023 00-77-9523YbkrqhdcHoefqhe tract infections (16 sources)Urinary tract infectious disease; Translations: [Urinary tract infection, site not specified]Onset: 452890-49-3409GdxhnjfnDuore infection (20 sources)Disease caused by 2019-nCoV; Translations: [COVID-19]Onset: 40-70-2470Qjtdwmoj Results Test NameValueInterpretationReference RangeFacilityRheumatology Office/Clinic Noteon 02-38-5627Ytmgyapkltis Office/Clinic NoteChief Complaint Establish care for RA History of Present Illness The content of this note was generated by an artificial intelligence (AI) language dictation. The patient or guardian has given their consent for the use of AI technology during the visit to capture and process the conversation. The AI will assist in providing information and support throughout the discussion. The AI will not store personal or sensitive information beyond the scope of this session, and the purpose is solely to facilitate the conversation. Referring Provider: Minda Yeboah Reason for referral: RA, TRANSFERRING CARE FROM DR. FLORENTINO IN [place] Patient is here for above referral. PATIENT INTERVIEW/HISTORY Prior diagnoses: RA When Diagnosed: about 2 years ago Diagnosis was based on: something abnormal in labs, hip, back and hand pain w swelling Prior meds and reasons for stopping: MTX 12.5 mg weekly (out of it since January) and 1 tab folic aciddaily Currently taking: see above Currently on steroids?: none feels like 'she's crawling out of her skin' at 'high doses' Last visit with rheumatology: January she thinks Plan from last few visits: - continue the same Currently, Disease status is: she is not doing well now, worse since January when she ran out of the med The location of the pain is: hips, knees, hands, back The pain frequency is: daily Morning stiffness lasts: 15 min Patient history is positive if box is checked: Numbness or tingling [([x_]) feet Symptoms of an infection at onset of pain ([_]) When you are in the cold, does the skin on your fingers or toes look different? Explain if yes: [_x] no sores History of unusual rashes - dry skin - were any seen by a dipper and baker or biopsied by any provider? ([_]) History of mouth or nose sores (not cold sores) ([x_]) scabs inside nostrils but has sinus drainage History of hair loss more than expected for age ([_x]) Frequent dry mouth ([_x]) Frequent dry or sand paper feeling in eyes ([_]) Visually noticeable skin tightening (does not include tightening because of joint swelling) ([_]) Trouble swallowing ([_]) Weakness in a specific part of the body ([_x]) legs and hands Personal history of Inflammatory Bowel Disease eg. Crohns or Ulcerative Colitis (this does not include diverticulitis or irritable bowel syndrome) ([_]) Personal history of psoriasis ([_]) Ever told that he/she had gout? ([_]) Back pain for months or years ([x_]) Ank Spond Entry criterion: Back pain >=3 months Patient's back pain started Before 47 yrs of age. + [[_]] sacroiliitis on imaging? (MRI or definite radiographic sacroiliitis according to modified [place] criteria) [[_]] 1+ SpA features present below Ank Spond OR + [[_]] HLAB27 + [[_]] 2+ SpA features present below nrAx-SpA SpA features 1. Age <40 at onset [[X_]]. Onset was gradual. It gets worse with exercise. Yes, there is improvement with rest. There is not back pain at night with improvement on rising. -> 4 criteria met therefore, inflammatory back pain is present ([_]) 2. alternating buttock pain ([_]) 3. Pain at night or morning stiffness ([X_]) 4. Uveitis ([_]) 5. Arthritis (asymmetrical arthritis) ([_]) SYMMETRICAL 6. Dactylitis ([_]) 7. Heel pain ([X_]) 8. Good response to NSAIDs ([_]) 9. Psoriasis ([_]) 10. H/o IBD ([_]) 11. Family history of ankylosing spondylitis ([_]) 12. Elevated CRP ([_]) ? if HLAB27 negative, xrays of SI joints negative and have 1 SpA feature, we may order MRI of pelvis Family hx: mother- RA Medicines for pain: gabapentin- doesn't help prednisone-worked well ibuprofen 400 mg -didn't help joint or back pain aleve 2 tabs -didn't help joint or back pain Non medicinal treatments tried for joint pain: PT for back- didn't help steroid injections for back x7 - didn't help steroid injections in hips- didn't help for long The doctors that the patient has seen for issues related to this referral include: Dr. Florentino ([facility] in [place])-rheumatology pain management in [place]- she left them when they didn't put her under for 'blocks' in her spine Review of Systems REVIEW OF SYSTEMS for symptoms for the last couple weeks only (marked if present): Constitutional: Fevers ([_]) Fatigue ([_]) Concern for current infection ([_]) Cardiovascular: chest pain ([_]) Respiratory: shortness of breath ([_]) Cough ([X_]) chronic from COPD Genitourinary: Hematuria (blood in urine) ([_]) Dysuria (burning when peeing) ([_]) Skin: rash ([_]) Completed ROS: ([_X]) Postmenopause Physical Exam Vitals & Measurements HR: 102 (Peripheral) BP: 114/84 HT: 170 cm WT: 68.0 kg WT: 68.0 kg (Dosing) BMI: 23.53 Sections left blank if not examined Constitutional: see vitals, Vital Signs (last 24 hrs) Last Charted Heart Rate Peripheral H 102bpm (MAY 14 09:12) SBP 114 mmHg (MAY 14:12) DBP 84 mmHg (MAY 14:) Lynn (more content not included)...NormalKettering Health Greene MemorialANA Ene-3-Czxffq 76-45-3229MIW Cytoplasmic Pattern-CastlewoodNot ReportedNormalPromedica Memorial Hospital SystemComment on above:Performed By: #### Antinuclear Antibody HEp-2 Substrate-May #### [facility] [address] [place], [place] [address]VJA Lab Comment-MayoNot ReportedNormalPromedica Memorial Hospital SystemComment on above:Performed By: #### Antinuclear Antibody HEp-2 Substrate- May #### [facility] [address] [place], [place] [address]SDM Pattern (2)-MayoNot ReportedNormalPromedica Memorial Hospital SystemComment on above:Performed By: #### Antinuclear Antibody HEp-2 Substrate- May #### [facility] [address] [place], [place] [address]BBU Pattern-MayoNot ReportedNormalPromedica Memorial Hospital SystemComment on above:Performed By: #### Antinuclear Antibody HEp-2 Substrate- May #### [facility] [address] [place], [place] [address]OVC Titer (2)-MayoNot ReportedNormalPromedica Memorial Hospital SystemComment on above:Performed By: #### Antinuclear Antibody HEp-2 Substrate- May #### [facility] [address] [place], [place] [address]WFF Titer-MayoNot ReportedNormalPromedica Memorial Hospital SystemComment on above:Performed By: #### Antinuclear Antibody HEp-2 Substrate- May #### [facility] [address] [place], [place] [address]TRh-9 ELOY-MayoSEE BELOWNormal<1:80 (Negative)[facility] Greene MemorialComment on above:Result Comment: RESULT: <1:80 (Negative) ADDITIONAL INFORMATION Method: Immunofluorescence using HEp-2 cellular substrate. Test Performed by: [facility] [address] [place] [address] Gl Accountant: Salome Lynch Ph.D.; CLIA# [id number] By: #### Antinuclear Antibody HEp-2 Substrate-May #### [address] [address]Rdgyknqv-Ahrfrr 41-50-5200Dohrqvog-Mayo3.9 unit/LNormal<7.7 [facility] MemorialComment on above:Result Comment: ADDITIONAL INFORMATION This test has been modified from the insect control aide's instructions. Its performance characteristics were determined by [facility] in a manner consistent with CLIA requirements. This test has not been cleared or approved by the U.S. Food and Drug Administration. Test Performed by: [facility] [address] [place] [address] Gl Accountant: Salome Lynch Ph.D.; CLIA# [id number] By: #### Aldolase-Michelle #### [address] [address]KIO Ab-Mayoon 73-25-8619MVL Ab-Michelle<15.6Normal<20.0 (Negative)[facility] Greene MemorialComment on above:Result Comment: Interpretation: Antibodies to CCP not detected. If clinical symptoms are strongly indicative for rheumatoid arthritis, suggest testing for Rheumatoid Factor, S (RHUT) and, if positive, Rheumatoid Factor Panel, S (RFPN), which includes differentiation of rheumatoid factor IgM and IgA isotypes. Test Performed by: [facility] [address] [place] [address] Gl Accountant: Salome Lynch Ph.D.; CLIA# [id number] By: #### Cyclic Citrullinated Peptide Antibody-Ma #### [facility] [address] [place], [place] [address]TSX D26-Sjjehz 48-47-5230RTV B27 Intrp-MayoSEE BELOWNormal [facility] MemorialComment on above:Result Comment: RESULT: HLA-B27 antigen was not detected. ADDITIONAL INFORMATION Method: Flow Cytometry CLIA: [id number] CLIA Gl Accountant: SALOME LYNCH,Ph.D. Test Performed by: [facility] [address] [place] [address] Gl Accountant: Salome Lynch Ph.D.; CLIA# [id number] By: #### HLA N37-Fsnv #### [facility] [address] [place], [place] [address]UEO X68-LsxuUjyrfqspFoslrwJnd ApplicableKettering Health Greene MemorialComment on above:Performed By: #### HLA M82-Tqgb #### [facility] [address] [place], [place] [address]Kycwphsnwp Factor, Serumon 85-03-1021Nfywahfceh Factor,Serum 13.0 IU/mLNormal0.0-14.0[facility] MemorialComment on above:Performed By: #### HLA T79-Rxps #### [facility] [address] [place], [place] [address]XZ-N and SS-B Ab, S-[facility] 17-68-1054OT-A/Ro IgG-Castlewood<0.2 Normal<1.0 (Negative)[facility] MemorialComment on above:Performed By: #### CD:[id number] #### [facility] [address] [place], [place] [address]ZE-R/La IgG-Castlewood<0.2Normal<1.0 (Negative)[facility] MemorialComment on above:Result Comment: Test Performed by: [facility] [address] [place] [address] Gl Accountant: Salome yLnch Ph.D.; CLIA# [id number] By: #### :[id number] #### [facility] [address] [place] [address].eGFRon 89-95-8664XTA/1.73 sq M.predicted MDRD (S/P/Bld) [Vol rate/Area]mL/min/{1.73_m2}Normal>=60K[facility] Greene MemorialComment on above:Result Comment: [facility] have implemented the eGFR calculation approach that does not havea coefficient for race and that conforms to the NKF- ASN Task Force Recommendations. Stages of Chronic Kidney Disease GFR Stage 1 Normal to mild loss of kidney function ? 90 Stage 2 Mild loss of kidney function 60 - 89 Stage 3a Mild to moderate loss of kidney function 45 - 59 Stage 3b Moderate to severe loss of kidney function 30 - 45 Stage 4 Severe loss of kidney function 15 - 29 Stage 5 Kidney failure < 15 GFR calculated using the CKD-Epi Creatinine Equation (2020): eGFR = 142 X min(SCr/?, 1)? X max(SCr /?, 1)-1.200 X 0.9938Age X 1.012 [if female] Abbreviations/Units: eGFR (estimated glomerular filtration rate) = mL/min/1.73 m2 SCr (standardized serum creatinine) = mg/dL ? = 0.7 (females) or 0.9 (males) ? = -0.241 (females) or -0.302 (males) min = indicates the minimum of SCr/? or 1 max = indicates the maximum of SCr/? or 1 Age = yearsPerformed By: #### HLA Q16-Tjiz #### [facility] [address] [place], [place] [address]BXEgp 90-19-6481Xyge nitrogen [Mass/Vol]6 mg/dLLow7-25 [facility] MemorialComment on above:Performed By: #### BUN #### [address] [address]YWW w/ Diffon 79-57-3602Smttcvysjii distribution width (RBC) [Ratio]16.8 %High11.6-14.8BProMedica Flower HospitalComment on above: Performed By: #### HLA L03-Bfyo #### [facility] [address] [place], [place] [address]Udeazriciw (Bld) [Volume fraction]37.0 %Hwswfx39.0-46.0 [facility] MemorialComment on above:Performed By: #### HLA F30-Krjz #### [facility] [address] [place], [place] [address]Odqtbmbtzs (Bld) [Mass/Vol]12.4 g/iMEbjqkw70.0-16.0[facility] MemorialComment on above:Performed By: #### HLA O03-Zfko #### [facility] [address] [place], [place] [address]SWV (RBC) [Entitic mass]31.0 rqXcgpjd13.0-35.0[facility] MemorialComment on above:Performed By: #### HLA O54-Nepu #### [facility] [address] [place], [place] [address]FBYS33.6 %Nzfypo07.0-37.0[facility] Comment on above:Performed By: #### HLA C25-Wnxg #### [facility] [address] [place], [place] [address]MFB (RBC) [Entitic vol]92.3 fTGgptqn45.0-100.0[facility] MemorialComment on above:Performed By: #### HLA E26-Tnyf #### [facility] [address] [place], [place] [address]Ccqjguhn416 x10*3/tsJAxytiy798-596Xywremsxp [facility] SystemComment on above:Performed By: #### HLA A55-Stbm #### [facility] [address] [place], [place] [address]Asxtwyay mean volume (Bld) [Entitic vol]7.5 fLNormal6.7-10.6 [facility] MemorialComment on above:Performed By: #### HLA F22-Sssc #### [facility] [address] [place], [place] [address]SZR3.01 x10*6/mcLNormal3.80-5.20[facility] MemorialComment on above:Performed By: #### HLA Y77-Jckt #### [facility] [address] [place], [place] [address]LTE5.3 x10*3/mcLNormal4.5-11.0[facility] Comment on above:Performed By: #### HLA G63-Term #### [facility] [address] [place], [place] [address]KUNgx 64-58-4621Qgqusplh Wbdjhsahcleet95 IU/PShjyqj39-189 [facility] MemorialComment on above:Performed By: #### CP #### [address] [address]UJHas 25-48-5993OJH [Mass/Vol]20.3 mg/LHigh0.0-9.9BProMedica Flower HospitalComment on above:Result Comment: For normal applications of CRP: 10 - 50 mg/L indicates mild inflammation 50 - 100 mg/L indicates more severe inflammation >100 mg/L indicates serious processeses and frequently indicates the presence of a bacterial infection CRP measurement is useful for assessment of non-specific INFLAMMATORY RESPONSE to infection or injury AND is a sensitive marker of ACUTE INFLAMMATION including CARDIAC RISK ASSESSMENT. CARDIAC patients with elevated CRP are POTENTIALLY at a HIGHER RISK of FUTURE CARDIAC EVENTS.Performed By: #### HLA I48-Dyip #### [facility] [address] [place], [place] [address]Akychtztnisj 99-21-1073Jypsqocovz [Mass/Vol]0.74 mg/dLNormal 0.60-1.20[facility] MemorialComment on above:Performed By: #### CREA #### [address] [address]Fyep Autoon 95-68-5728Pwsl Absolute0.0 x10*3/mcLNormal0.0-0.2 [facility] MemorialComment on above:Performed By: #### .Automated Diff #### [address] [address]Ejigikvko/100 WBC (Bld)0.2 %Normal0.0-1.5[facility] Health SystemComment on above:Performed By: #### .Automated Diff #### [address] [address]Yrf Absolute0.0 x10*3/mcLNormal0.0-0.4BMercy Health Lorain Hospital SystemComment on above:Performed By: #### .Automated Diff #### [address] [address]Rbikeydvdss/100 WBC (Bld)0.5 %Normal0.0-5.4BMercy Health Lorain Hospital SystemComment on above:Performed By: #### .Automated Diff #### [address] [address]Mebot Absolute1.5 x10*3/mcLNormal1.0-4.8BMercy Health Lorain Hospital SystemComment on above:Performed By: #### .Automated Diff #### [address] [address]Dfbzirghbwl/100 WBC (Bld)23.8 %Low27.2-40.8BMercy Health Lorain Hospital SystemComment on above:Performed By: #### .Automated Diff #### [address] [address]Xmto Absolute0.3 x10*3/mcLNormal0.1-1.1BProMedica Flower HospitalComment on above:Performed By: #### .Automated Diff #### [address] [address]Nlqkcqito/100 WBC (Bld)5.3 %Normal3.7-11.9BMercy Health Lorain Hospital SystemComment on above:Performed By: #### .Automated Diff #### [address] [address]Cevagz Absolute4.4 x10*3/mcLNormal1.8-7.7BMercy Health Lorain Hospital SystemComment on above:Performed By: #### .Automated Diff #### [address] [address]Kzzraw Auto70.2 %Spqwkt51.2-70.8BProMedica Flower Hospital Comment on above:Performed By: #### .Automated Diff #### [address] [address]OPSrc 08-40-2313Jpa Rate60 mm/hrHigh0-30[facility] MemorialComment on above:Performed By: #### ESR #### [address] [address]Uwh Func Panelon 01-04-9273Nhxpuji [Mass/Vol]4.2 g/dLNormal 3.7-5.3BProMedica Flower HospitalComment on above:Performed By: #### HLA W76-Xrep #### [facility] [address] [place], [place] [address]Fym Phos78 IU/URebgfi56-119QntbgpszhKettering Health Greene Memorial Comment on above:Performed By: #### HLA T02-Pucb #### [facility] [address] [place], [place] [address]ISA [Catalytic activity/Vol]10 U/LNormal7-52[facility] MemorialComment on above:Performed By: #### HLA N15-Eoco #### [facility] [address] [place], [place] [address]JOB [Catalytic activity/Vol]23 U/YUalxgr20-51SsrwqmgciKettering Health Greene MemorialComment on above:Performed By: #### HLA P68-Xacy #### [facility] [address] [place], [place] [address]Bcvz Direct0.30 mg/dLHigh0.03-0.18[facility] Hospital SystemComment on above:Performed By: #### HLA E15-Ezgt #### [facility] [address] [place], [place] [address]Nfhe Indirect0.4 mg/dLNormal0.0-1.0[facility] SystemComment on above:Performed By: #### HLA K61-Epwa #### [facility] [address] [place], [place] [address]Abwg Total0.7 mg/dLNormal0.3-1.0[facility] Hospital SystemComment on above:Performed By: #### HLA X40-Abdy #### [facility] [address] [place], [place] [address]Hoiqncs [Mass/Vol]7.6 g/dLNormal6.0-8.3BProMedica Flower HospitalComment on above:Performed By: #### HLA J26-Neoa #### [address] [address]QL Foot 3 Views Bilateralon 58-59-7799SF Foot 3 Views BilateralEXAM: XR Hand 3 Views Bilateral, XR Foot 3 Views Bilateral, XR Pelvis 1 or 2 Views HISTORY: Pain, hand, COMPARISON: None. TECHNIQUE: Routine views were obtained for bilateral hands, bilateral feet and pelvis. FINDINGS/IMPRESSION: Bilateral hands: 1. There is mild bilateral polyarticular osteoarthritis. 2. No acute fracture, subluxation or erosive changes are seen. Pelvis: 1. There is mild bilateral hip joint osteoarthritis. 2. Mild bilateral sacroiliac joint osteoarthritis. 3. No acute fracture or traumatic subluxation 4. The visualized lower lumbar spine shows mild degenerative changes. Bilateral feet: 1. Mild bilateral polyarticular osteoarthritic changes seen at the hindfoot, midfoot and the forefoot worst at the interphalangeal joints of the toes. 2. No acute fracture or subluxation. Final Dictated by: Gayle Wright MD Dictated DT/TM: 05/14/2025 12:39 pm Signed by: Gayle Wright MD Signed (Electronic Signature): 05/14/2025 5:15 pm Transcribed DT/TM: 05/14/2025 12:43 (If Report Is Signed, Electronically Signed in Other Vendor System)Normal [facility] MemorialXR Hand 3 Views Bilateralon 02-93-9749MJ Hand 3 Views BilateralEXAM: XR Hand 3 Views Bilateral, XR Foot 3 Views Bilateral, XR Pelvis 1 or 2 Views HISTORY: Pain, hand, COMPARISON: None. TECHNIQUE: Routine views were obtained for bilateral hands, bilateral feet and pelvis. FINDINGS/IMPRESSION: Bilateral hands: 1. There is mild bilateral polyarticular osteoarthritis. 2. No acute fracture, subluxation or erosive changes are seen. Pelvis: 1. There is mild bilateral hip joint osteoarthritis. 2. Mild bilateral sacroiliac joint osteoarthritis. 3. No acute fracture or traumatic subluxation 4. The visualized lower lumbar spine shows mild degenerative changes. Bilateral feet: 1. Mild bilateral polyarticular osteoarthritic changes seen at the hindfoot, midfoot and the forefoot worst at the interphalangeal joints of the toes. 2. No acute fracture or subluxation. Final Dictated by: Gayle Wright MD Dictated DT/TM: 05/14/2025 12:39 pm Signed by: Gayle Wright MD Signed (Electronic Signature): 05/14/2025 5:15 pm Transcribed DT/TM: 05/14/2025 12:43 (If Report Is Signed, Electronically Signed in Other Vendor System)Normal [facility] MemorialXR Pelvis 1 or 2 Viewson [id number] Pelvis 1 or 2 ViewsEXAM: XR Hand 3 Views Bilateral, XR Foot 3 Views Bilateral, XR Pelvis 1 or 2 Views HISTORY: Pain, hand, COMPARISON: None. TECHNIQUE: Routine views were obtained for bilateral hands, bilateral feet and pelvis. FINDINGS/IMPRESSION: Bilateral hands: 1. There is mild bilateral polyarticular osteoarthritis. 2. No acute fracture, subluxation or erosive changes are seen. Pelvis: 1. There is mild bilateral hip joint osteoarthritis. 2. Mild bilateral sacroiliac joint osteoarthritis. 3. No acute fracture or traumatic subluxation 4. The visualized lower lumbar spine shows mild degenerative changes. Bilateral feet: 1. Mild bilateral polyarticular osteoarthritic changes seen at the hindfoot, midfoot and the forefoot worst at the interphalangeal joints of the toes. 2. No acute fracture or subluxation. Final Dictated by: Gayle Wright MD Dictated DT/TM: 05/14/2025 12:39 pm Signed by: Gayle Wright MD Signed (Electronic Signature): 05/14/2025 5:15 pm Transcribed DT/TM: 05/14/2025 12:43 (If Report Is Signed, Electronically Signed in Other Vendor System)Normal [facility] MemorialGastroenterology Office/Clinic Noteon 04-04-2025 Gastroenterology Office/Clinic NoteGastroenterology Office/Clinic Note Chief Complaint EGD and colonoscopy HPI Staff Established patient is a(n) 59 year old female who presents today for a follow up to EGD & Colonoscopy on 01/29/25. Patient requesting Nexium and famotidine refilled 3 year colon recall placed. Fernandezs refilled 03/21/25 for 1 year supply. Nexium and Pepcid effective? Yes Any blood thinners? no Any GLP-1 agonists? no History of Present Illness Reviewed HPI collected by staff Review of Systems PHQ Score Initial Depression Screen Score: 0 SCORE All systems reviewed, negative; Except for above Physical Exam Vitals & Measurements HR: 96(Peripheral) BP: 122/88 HT: 67 in HT: 169 cm WT: 165.787 lb WT: 75.2 kg BMI: 26.33 No acute distress Procedure EGD: Impression and Plan 1. Esophageal landmarks identified, small hiatal hernia noted 2. Mild nonspecific patchy erythema in the body and fundus of the stomach, random biopsies were taken for histology and rule out H. pylori 3. Normal examined duodenum, random biopsies were taken to rule out celiac disease Colonoscopy: Impression and Plan 1. Moderate internal hemorrhoids 2. 2 sessile polyps in the ascending colon and 1 sessile polyp in the transverse colon, 3-5 mm in size, all resected with cold snare completely and retrieved 3. Otherwise normal colonic mucosa, random biopsies were taken to rule out microscopic colitis 4. Normal examined terminal ileum Recommendations: Repeat colonoscopy:: In 3 years, Based on path Pathology: Final Diagnosis ( Auth (Verified) ) A: DUODENUM, BIOPSY: ??? DUODENAL MUCOSA WITHIN NORMAL LIMITS. B: STOMACH, BIOPSY: ??? GASTRIC ANTRAL MUCOSA COMPATIBLE WITH REACTIVE GASTROPATHY. ??? NO INTESTINAL METAPLASIA IDENTIFIED. ??? NO H. PYLORI MICROORGANISMS IDENTIFIED WITH IMMUNOSTAIN. C: COLON, RANDOM BIOPSY: ??? COLONIC MUCOSA WITH LYMPHOID AGGREGATES, WITHIN NORMAL LIMITS. D: POLYPS X2, ASCENDING COLON, POLYPECTOMY: ??? COLONIC MUCOSA WITH FOCAL HYPERPLASTIC CHANGES. E: POLYP, TRANSVERSE COLON, POLYPECTOMY: ??? SESSILE SERRATED POLYP. Assessment/Plan 1. GERD (gastroesophageal reflux disease) (K21.9: Gastro-esophageal reflux disease without esophagitis) Feels acid coming up, feels like she is going to vomit Not controlled with Omeprazole Switched Omeprazole to Nexium and added Famotidine at bedtime at last visit Controlled EGD 01/2025: Mild nonspecific patchy erythema in the body and fundus. Biopsy negative for IM and H Pylori 2. Hematemesis (K92.0: Hematemesis) Pt had episode of bloody emesis after drinking 4 rum and cokes in a single episode. Does not normally drink. Had 5 bright red bloody emesis that night and none after. Resolved 3. Diarrhea (R19.7: Diarrhea, unspecified) Bowels change between constipation and diarrhea Uses magnesium citrate, sometimes has relief with it Failed MiraLax Controlled with Linzess 4. Colon polyps (K63.5: Polyp of colon) Colonoscopy 01/2025: 3 polyps removed, 2 HPs and SSP Repeat colonoscopy in 3 years ICarolina, personally scribed for Kernsavel Pulido on 04/03/2025 12:23:51. . Follow-up No qualifying data available Problem List/Past Medical History Ongoing Anemia Anxiety Colon polyps Constipation Depression Diarrhea GERD (gastroesophageal reflux disease) Hematemesis Hyperlipidemia Hypokalemia Hypothyroidism Insomnia Lumbosacral spondylosis Migraines Raynaud's disease Seasonal allergies Seizures Thyroid nodule Tobacco user Unintentional weight loss Historical No qualifying data Procedure/Surgical History Colonoscopy (01/29/2025), Esophagogastroduodenoscopy (01/29/2025), Appendectomy. Medications albuterol HFA 90 mcg/inh MDI, 2 puff(s), Inhalation, q6hr, PRN Anoro Ellipta, 1 puff(s), Inhalation, Daily atorvastatin 10 mg Tab, 10 mg= 1 tab(s), Oral, Daily busPIRone 10 mg Tab, 10 mg= 1 tab(s), Oral, BID cetirizine 10 mg Tab, 10 mg= 1 tab(s), Oral, Daily famotidine 40 mg Tab, 40 mg= 1 tab(s), Oral, Once a day (at bedtime) Flonase, 2 spray(s), Nasal, Daily levothyroxine 25 mcg (0.025 mg) Tab, 25 mcg= 1 tab(s), Oral, Daily Linzess 145 mcg oral capsule, 145 mcg= 1 cap(s), Oral, Daily, 3 refills Magnesium, See Instructions Metamucil 3.4 g/5.2 g oral powder, 3.4 gm, Oral, TID, PRN Nexium 40 mg Cap-EC, 40 mg= 1 cap(s), Oral, Daily Topamax 100 mg Tab, 100 mg= 1 tab(s), Oral, BID Topamax 25 mg Tab, 25 mg= 1 tab(s), Oral, BID traZODONE 50 mg Tab, 50 mg= 1 tab(s), Oral, Once a day (at bedtime) Vistaril 25 mg Cap, 25 mg= 1 cap(s), Oral, q8hr, PRN Vitamin B12 Zoloft 100 mg Tab, 100 mg= 1 tab(s), Oral, Daily Allergies No Known Allergies No Known Medication Allergies Social History Alcohol Past. Beer. 1-2 times per year., 12/19/2024 Substance Abuse Never., 12/19/2024 Tobacco 10 or more cigarettes (1/2 pack or more)/day in last 30 days To (more content not included)...[facility] SystemComment on above:Result Comment: Electronically Signed By: Saumya Pulido MD\.br\Date and Time Signed: 04/04/25 09:21 EDT\.br\Electronically Co-Signed By: Carolina Morton MA\.br\Date and Time Co-Signed: 04/03/25 12:27 EDTAmbulatory Visit Summaryon [id number] Visit SummaryAmbulatory Visit Summary TANJA CARRERO :1965 Visit Date:04/03/2025 Ambulatory Visit Instructions Your Diagnosis GERD (gastroesophageal reflux disease) Hematemesis Diarrhea Colon polyps Your Care Team Attending Physician - Saumya Pulido MD Primary Care Physician - MINDA YEBOAH CNP This Is Your Medications List Contact prescribing physician if questions or concerns Non-Formulary Medication (Magnesium) albuterol (albuterol HFA 90 mcg/inh MDI) atorvastatin (atorvastatin 10 mg Tab) busPIRone (busPIRone 10 mg Tab) cetirizine (cetirizine 10 mg Tab) cyanocobalamin (Vitamin B12) esomeprazole (Nexium 40 mg Cap-EC) famotidine (famotidine 40 mg Tab) fluticasone nasal (Flonase) hydrOXYzine (Vistaril 25 mg Cap) levothyroxine (levothyroxine 25 mcg (0.025 mg) Tab) linaclotide (Linzess 145 mcg oral capsule) psyllium (Metamucil 3.4 g/5.2 g oral powder) sertraline (Zoloft 100 mg Tab) topiramate (Topamax 100 mg Tab) topiramate (Topamax 25 mg Tab) trazodone (traZODONE 50 mg Tab) umeclidinium-vilanterol (Anoro Ellipta) Procedures Performed Colonoscopy (01/29/2025), Esophagogastroduodenoscopy (01/29/2025), Appendectomy. Discharge Vitals Heart Rate (Peripheral) 96 Blood Pressure 122/88 Height 169 cm Height 67 in Weight 75.2 kg Weight 165.787 lb BMI 26.33 Medications What How Much When Why Instructions Unchanged albuterol (albuterol HFA 90 mcg/ inh MDI) 2 Puffs Inhalation Every 6 hours as needed for as needed for wheezing Contact prescribing physician if questions or concerns Unchanged atorvastatin (atorvastatin 10 mg Tab) 1 Tablets By Mouth Every day Contact prescribing physician if questions or concerns Unchanged busPIRone (busPIRone 10 mg Tab) 1 Tablets By Mouth 2 times a day Contact prescribing physician if questions or concerns Unchanged cetirizine (cetirizine 10 mg Tab) 1 Tablets By Mouth Every day Contact prescribing physician if questions or concerns Unchanged cyanocobalamin (Vitamin B12) Contact prescribing physician if questions or concerns Unchanged esomeprazole (Nexium 40 mg Cap-EC) 1 Capsules By Mouth Every day Contact prescribing physician if questions or concerns Unchanged famotidine (famotidine 40 mg Tab) 1 Tablets By Mouth Once a day (at bedtime) Contact prescribing physician if questions or concerns Unchanged fluticasone nasal (Flonase) 2 Sprays Nasal Inhalation Every day Contact prescribing physician if questions or concerns Unchanged hydrOXYzine (Vistaril 25 mg Cap) 1 Capsules By Mouth Every 8 hours as needed for as needed for anxiety Contact prescribing physician if questions or concerns Unchanged levothyroxine (levothyroxine 25 mcg (0.025 mg) Tab) 1 Tablets By Mouth Every day Contact prescribing physician if questions or concerns Unchanged linaclotide (Linzess 145 mcg oral capsule) 1 Capsules By Mouth Every day Contact prescribing physician if questions or concerns Unchanged Non-Formulary Medication (Magnesium) See instructions Contact prescribing physician if questions or concerns Unchanged psyllium (Metamucil 3.4 g/ 5.2 g oral powder) 3.4 Gram By Mouth 3 times a day as needed for for constipation GERD (gastroesophageal reflux disease) Hematemesis Diarrhea Colon cancer screening Contact prescribing physician if questions or concerns Unchanged sertraline (Zoloft 100 mg Tab) 1 Tablets By Mouth Every day Contact prescribing physicianif questions or concerns Unchanged topiramate (Topamax 100 mg Tab) 1 Tablets By Mouth 2 times a day along with 25mg Contact prescribing physician if questions or concerns Unchanged topiramate (Topamax 25 mg Tab) 1 Tablets By Mouth 2 times a day along with 100mg Contact prescribing physician if questions or concerns Unchanged trazodone (traZODONE 50 mg Tab) 1 Tablets By Mouth Once a day (at bedtime) Contact prescribing physician if questions or concerns Unchanged umeclidinium-vilanterol (Anoro Ellipta) 1 Puffs Inhalation Every day Contact prescribing physician if questions or concerns Allergies No Known Allergies No Known Medication Allergies Problems Ongoing - Any problem that you are currently receiving treatment for. Anemia Anxiety Colon polyps Constipation Depression Diarrhea GERD (gastroesophageal reflux disease) Hematemesis Hyperlipidemia Hypokalemia Hypothyroidism Insomnia Lumbosacral spondylosis Migraines Raynaud's disease Seasonal allergies Seizures Thyroid nodule Tobacco user Unintentional weight loss Patient Survey You may receive a survey via text or e-mail asking about your office visit. Please share your experience with us by completing your survey. We appreciate your feedback and thank you for choosing us for your care. Patient Portal You may access all of your results and other medical record information on our secure patient portal. If you are not signed up for this yet, please contact [email or web address] (more content not included)...[facility] [id number] From: Sharon Urena I To: [facility] - Reminders/Recalls; Sent: 02/20/2025 13:44:43 EDT Show up: 12/30/2027 13:44:00 EDT Subject: Colonoscopy recall Due Date/Time: 01/30/2028 13:44:00 EDT Reminder/Recall 3 year colon recall - hx colon polyps Dr. Pulido 01/29/25No[facility] Reporton 02-06-2025 Surgical Pathology ReportFish - [facility] [address] [place] [address]- Surgical Pathology Report Collected Date/Time: 01/29/2025 14:23 EDT Pathologist: Juma GRAY PhD, Flaquita Sanders Received Date/Time: 01/30/2025 07:16 EDT Flash GRAY, Saumya Pulido MD, Saumya Maynard 07 Surgical Pathology Report - 02/06/2025 12:01 EDT - Auth (Verified) Final Diagnosis A: DUODENUM, BIOPSY: - DUODENAL MUCOSA WITHIN NORMAL LIMITS. B: STOMACH, BIOPSY: - GASTRIC ANTRAL MUCOSA COMPATIBLE WITH REACTIVE GASTROPATHY. - NO INTESTINAL METAPLASIA IDENTIFIED. - NO H. PYLORI MICROORGANISMS IDENTIFIED WITH IMMUNOSTAIN. C: COLON, RANDOM BIOPSY: - COLONIC MUCOSA WITH LYMPHOID AGGREGATES, WITHIN NORMAL LIMITS. D: POLYPS X2, ASCENDING COLON, POLYPECTOMY: - COLONIC MUCOSA WITH FOCAL HYPERPLASTIC CHANGES. E: POLYP, TRANSVERSE COLON, POLYPECTOMY: - SESSILE SERRATED POLYP. (Electronic Signature) Flaquita Dennison MD PhD 02/06/2025 12:01 Clinical Information GERD, hematemesis, diarrhea Pre-Op Diagnosis: GERD, hematemesis, diarrhea Procedure: EGD, colonoscopy Post-Op Diagnosis: 1. Esophageal landmarks identified, small hiatal hernia noted 2. Mild nonspecific patchy erythema in the body and fundus of the stomach, random biopsies were taken for histology and rule out H. pylori 3. Normal examined duodenum, random biopsies were taken to rule out celiac disease 4. Moderate internal hemorrhoids 5. 2 sessile polyps in the ascending colon and 1 sessile polyp in the transverse colon, 3-5 mm in size, all resected with cold snare completely and retrieved 6. Otherwise normal colonic mucosa, random biopsies were taken to rule out microscopic colitis 7. Normal examined terminal ileum Specimen(s) Received A.Duodenal biopsy B.Gastric biopsy C.Random colon biopsy D.Ascending colon polyps x2 E.Transverse colon polyp Gross Description A: Received in formalin labeled with patient name, number, and duodenal biopsy are fragments of benjamin tissue ranging from less than 0.1 cm up to 0.1 cm. Specimen is entirely submitted in one cassette. B: Received in formalin labeled with patient name, number, and gastric biopsy are three fragments of benjamin/pink tissue ranging from less than 0.1 cm up to 0.2 cm in greatest dimension. Specimen is entirely submitted in one cassette. Surgical Pathology Report Collected Date/Time: 01/29/2025 14:23 EDT Pathologist: Juma GRAY PhD, Flaquita Sanders Received Date/Time: 01/30/2025 07:16 EDT Flash GRAY, Saumya Pulido MD, Saumya Maynard Gross Description C: Received in formalin labeled with patient name, number, and random colon biopsy are multiple fragments of benjamin tissue ranging from less than 0.1 cm up to 0.2 cm in greatest dimension. Specimen is entirely submitted in one cassette. D: Received in formalin labeled with patient name, number, and ascending colon polyps x2 are scant fragments of benjamin tissue each measuring up to less than 0.1 cm measuring in aggregate 0.3 x 0.1 x 0.1 cm. Specimen is entirely submitted in one cassette. E: Received in formalin labeled with patient name, number, and transverse colon polyp are multiple fragments of benjamin tissue ranging from less than 0.1 cm up to 0.1 cm measuring in aggregate 0.2 x 0.1 x 0.1 cm. Specimen is entirely submitted in one cassette. (DC) DC:MCA Microscopic Description The use of one or more reagents in the above tests is regulated as an analyte specific reagent (ASR). The test or tests are ordered following initial H&E microscopic examination. The performance characteristics were determined by the [facility] of [facility] Surgical Pathology. They have not been cleared or approved by the US Food and Drug Administration. The FDA has determined that such clearance or approval is not necessary. These tests are used for clinical purposes. They should not be regarded as investigational or for research. Appropriate positive and negative controls are performed and are acceptable. This report was transcribed using voice recognition technology and might contain unintended computerized sugar cane planter machine operator errors. Microscopic examination performed unless gross only specified. Quality was accessed and acceptable.[facility]orial Health SystemComment on above:Performed By: #### [id number] #### Gerardo [facility] [address], [place] [address]Ehbc OR Intraoperative Recordon [id number] OR Intraoperative RecordMain OR Intraoperative Record IntraOp Document Type FT Summary Primary Physician: Saumya Pulido MD Finalized Date/Time: 01/30/25 13:47:17 Pt. Name: TANJA CARRERO Dylon Garza/Sex: 1965 Female Med Rec #: [id number] Physician: Saumya Pulido MD Financial #: [id number] Pt. Type: O Room/Bed: / Admit/Disch: 01/29/25 12:40:32 - 01/29/25 23:59:59 Institution: Case Times FT Entry 1 Patient Times In Room 01/29/25 14:16:00 Out Room 01/29/25 14:54:00 Procedure Times Start 01/29/25 14:21:00 Stop 01/29/25 14:52:00 Anesthesia Times Start 01/29/25 14:16:00 Stop 01/29/25 14:54:00 Time at [facility] 01/29/25 14:33:00 Last Modified By: Mami RN, Teagan Sloan 01/29/25 14:54:17 General Comments: 1425 EGD completed/KS,RN 1428Colonoscopy began/KS,RN Case Attendance FT Entry 1 Entry 2 Entry 3 Case Attendee Arnold LEMUS, Sourav Ku MEDICAL DIRECTOR OCCUPATIONAL HEALTH, Arminda Osborne Role Performed MAGNESIUM MILL OPERATOR Scrub - Primary Staff - Other Time In 01/29/25 14:16:00 01/29/25 14:16:00 01/29/25 14:32:00 Time Out 01/29/25 14:54:00 01/29/25 14:54:00 01/29/25 14:54:00 Procedure EGD AND COLONOSCOPY(.) EGD AND COLONOSCOPY(.) EGD AND COLONOSCOPY(.) Comments Dr. Vale supervising Help in room. procedure. Last Modified By: Anny SHOOK, Valentina Bolaños RN, Teagan Bolaños RN, Teagan Sloan 01/30/25 13:46:50 01/29/25 14:54:22 01/29/25 14:54:22 Entry 4 Entry 5 Case Attendee Flash GRAY, Saumya Bolaños RN, Teagan Maynard Role Performed Surgeon - Primary Computer Engineer - Primary Time In 01/29/25 14:16:00 01/29/25 14:16:00 Time Out 01/29/25 14:54:00 01/29/25 14:54:00 Procedure EGD AND COLONOSCOPY(.) EGD AND COLONOSCOPY(.) Comments Last Modified By: Teagan Bolaños RN, RN, Kara N 01/29/25 14:54:22 01/29/25 14:54:22 Perioperative Protocols FT Pre-Care Text: Implements protective measures prior to operative or invasive procedure, confirms identity before the operative or invasive procedure, verifies operative procedure, surgical site, and laterality Entry 1 Procedure(s) EGD AND COLONOSCOPY(.) Patient Identity Birthday, ID Band Verified (select at Check, Patient least 2): Participation Consents / H and P Anesthesia Consent, Operative Site N/A Verified H&P, Surgery/Procedure Marking Verified Consent Surgical Site No Laterality Verified n/a Verified Procedure Verified Yes Correct Patient Yes Position Verified Availability Equipment, Medication Prep Dry n/a Verified (If Applicable) PreOp Antibiotic No Time Out Ricky Barrett CRNA, Given Participants Sourav Blakely Sarmini MD, Saumya Maynard, Teagan Bolaños RN Time Out Complete 01/29/25 14:19:00 Outcomes Met? Yes Last Modified By: Teagan Bolaños RN 01/29/25 14:20:34 Post-Care Text: The patient is free from signs and symptoms of injury caused by extraneous objects Allergy Information FT Pre-Care Text: Verifies allergies Entry 1 Allergies Reviewed? Yes Allergies Reviewed Self/Patient With Outcomes Met? Yes Last Modified By: Teagan Bolaños RN 01/29/25 14:20:43 Post-Care Text: The patient received appropriate medication(s) safely administered during the perioperative period Surgical Procedures FT Entry 1 Procedure Description Procedure EGD AND COLONOSCOPY Modifiers . Surgeon Description EGD with gastric biopsy and duodenal biopsy. Colonoscopy with random colon biopsy, ascending colon polypectomy x2, transverse colon polypectomy. Primary Procedure Yes Primary Surgeon Saumya Pulido MD Start 01/29/25 14:21:00 Stop 01/29/25 14:52:00 Anesthesia Type General Surgical Service Gastroenterology Wound Class 2 - Clean-Contaminated Last Modified By: Teagan Bolaños RN 01/29/25 14:53:31 General Case Data FT Pre-Care Text: Classifies surgical wound, implements aseptic technique, initiates traffic control Entry 1 Case Information OR ENDO 1 FT Case Level Level 2 Wound Class 2 - Clean-Contaminated Specialty Gastroenterology ASA Class 3 Preop Diagnosis GERD, HEMATEMESIS, Postop Same As Preop No DIARRHEA Postop Diagnosis EGD- gastritis and Outcomes Met? Yes small hiatal hernia. Colonoscopy- ascending colon polyps x2, transverse colon polyp and internal hemorrhoids. Last Modified By: Teagan Bolaños RN 01/29/25 14:52:43 Post-Care Text: The patient is free from signs and symptoms of infection Skin Assessment (Pre Procedure) FT Pre-Care Text: Implements protective measures to prevent skin/ tissue injury due to thermal or mechanical sources Evaluates for signs and symptoms of physical injury to skin and tissue Entry 1 Skin Integrity Intact, [place], Warm, & Skin Abnormality No Dry Outcomes Met? Yes Last Modified By: Teagan Bolaños RN 01/29/25 14:21:06 Post-Care Text: The patient is free from signs and symptoms of injury caused by extraneous objects Patient Positioning FT Pre-Care Text: Identifies physical alterati (more content not included)...[facility] SystemDischarge Instructionson [id number] InstructionsDischarge Instructions TANJA CARRERO :1965 Visit Date:01/29/2025 Inpatient Discharge Instructions Your Care Team Admitting Physician - Saumya Pulido MD Referring Physician - Saumya Pulido MD Reason for Your Visit GERD, HEMATEMESIS, DIARRHEA Your Diagnosis Change in bowel habits Chronic GERD Tests Performed Pathology Tissue Exam -- Results Pending -- Please visit your patient portal for your results or contact your primary care physician. This Is Your Medications List Non-Formulary Medication (Magnesium) albuterol (albuterol HFA 90 mcg/inh MDI) atorvastatin (atorvastatin 10 mg Tab) busPIRone (busPIRone 10 mg Tab) cetirizine (cetirizine 10 mg Tab) cyanocobalamin (Vitamin B12) esomeprazole (Nexium 40 mg Cap-EC) famotidine (famotidine 40 mg Tab) fluticasone nasal (Flonase) hydrOXYzine (Vistaril 25 mg Cap) levothyroxine (levothyroxine 25 mcg (0.025 mg) Tab) linaclotide (Linzess 145 mcg oral capsule) psyllium (Metamucil 3.4 g/5.2 g oral powder) sertraline (Zoloft 100 mg Tab) topiramate (Topamax 100 mg Tab) topiramate (Topamax 25 mg Tab) trazodone (traZODONE 50 mg Tab) umeclidinium-vilanterol (Anoro Ellipta) Procedure History Appendectomy. Discharge Vitals Temperature (Temporal Artery) 36.8 ???C Heart Rate (Monitored) 90 Respiratory Rate 21 Blood Pressure 127/84 Height 169 cm Weight 89 kg BMI 31.16 What to do next Instructions From Your Doctor Event Name Event Result Discharge Activity Resume normal activities in 24 hours Discharge Restrictions No driving for 24 hrs Discharge Diet(s) Regular Call Your Doctor For Persistent or heavy bleeding Discharge Instructions Discharge Instructions New Follow Up Appointments after Discharge Follow Up with Flash GRAY, TENA Patel, [facility] When: Comments: call office to arrange follow up Where: [address] [place] [address], [facility] [address] [address] [phone] Medications What How Much When Why Instructions Next Dose Unchanged albuterol (albuterol HFA 90 mcg/ inh MDI) 2 Puffs Inhalation Every 6 hours as needed for as needed for wheezing Unchanged atorvastatin (atorvastatin 10 mg Tab) 1 Tablets By Mouth Every day Unchanged busPIRone (busPIRone 10 mg Tab) 1 Tablets By Mouth 2 times a day Unchanged cetirizine (cetirizine 10 mg Tab) 1 Tablets By Mouth Every day Unchanged cyanocobalamin (Vitamin B12) Unchanged esomeprazole (Nexium 40 mg Cap-EC) 1 Capsules By Mouth Every day Unchanged famotidine (famotidine 40 mg Tab) 1 Tablets By Mouth Once a day (at bedtime) Unchanged fluticasone nasal (Flonase) 2 Sprays Nasal Inhalation Every day Unchanged hydrOXYzine (Vistaril 25 mg Cap) 1 Capsules By Mouth Every 8 hours as needed for as needed for anxiety Unchanged levothyroxine (levothyroxine 25 mcg (0.025 mg) Tab) 1 Tablets By Mouth Every day Unchanged linaclotide (Linzess 145 mcg oral capsule) 1 Capsules By Mouth Every day Unchanged Non-Formulary Medication (Magnesium) See instructions Unchanged psyllium (Metamucil 3.4 g/ 5.2 g oral powder) 3.4 Gram By Mouth 3 times a day as needed for for constipation GERD (gastroesophageal reflux disease) Hematemesis Diarrhea Colon cancer screening Unchanged sertraline (Zoloft 100 mg Tab) 1 Tablets By Mouth Every day Unchanged topiramate (Topamax 100 mg Tab) 1 Tablets By Mouth 2 times a day along with 25mg Unchanged topiramate (Topamax 25 mg Tab) 1 Tablets By Mouth 2 times a day along with 100mg Unchanged trazodone (traZODONE 50 mg Tab) 1 Tablets By Mouth Once a day (at bedtime) Unchanged umeclidinium-vilanterol (Anoro Ellipta) 1 Puffs Inhalation Every day Test Results No qualifying data available. Allergies No Known Allergies No Known Medication Allergies Problems Ongoing - Any problem that you are currently receiving treatment for. Anemia Anxiety Constipation Depression Diarrhea GERD (gastroesophageal reflux disease) Hematemesis Hyperlipidemia Hypokalemia Hypothyroidism Insomnia Lumbosacral spondylosis Migraines Raynaud's disease Seasonal allergies Seizures Thyroid nodule Tobacco user Unintentional weight loss Education Materials Upper Endoscopy, Adult, Care After After the procedure, it is common to have a sore throat. It is also common to have: ??? Mild stomach pain or discomfort. ??? Bloating. ??? Nausea. Follow these instructions at home: The instructions below may help you care for yourself at home. Your health care provider may give you more instructions. If you have questions, ask your health care provider. ??? If you were given a sedative during the procedure, it can affect you for several hours. Do not drive or operate machinery until your health care provider says that it is safe. ??? If you will be going home right after the procedure, plan to have a responsible adult: ? Take you home (more content not included)...[facility] Comment on above:Result Comment: Electronically Signed By: Compa MANSFIELD, Zoey\.[place]\Date and Time Signed: 01/29/25 15:10 EDTInpatient Patient Summaryon [id number] Patient SummaryInpatient Patient Summary [place] [id number] [facility] Clinical Discharge Instructions PERSON INFORMATION Name: TANJA CARRERO PHYSICIANS Admitting Physician: Saumya Pulido MD Attending Physician: Saumya Pulido MD PCP: MINDA YEBOAH CNP Discharge Diagnosis: Change in bowel habits; Chronic GERD Comment: PATIENT EDUCATION INFORMATION Instructions: Medication Leaflets: Follow up: MEDICATION LIST Medications to Continue with No Changes Other Medications albuterol (albuterol HFA 90 mcg/inh MDI) 2 Puffs Inhalation every 6 hours as needed as needed for wheezing. atorvastatin (atorvastatin 10 mg Tab) 1 Tablets By Mouth every day. busPIRone (busPIRone 10 mg Tab) 1 Tablets By Mouth 2 times a day. cetirizine (cetirizine 10 mg Tab) 1 Tablets By Mouth every day. cyanocobalamin (Vitamin B12) esomeprazole (Nexium 40 mg Cap-EC) 1 Capsules By Mouth every day. Refills: 0. famotidine (famotidine 40 mg Tab) 1 Tablets By Mouth once a day (at bedtime). Refills: 0. fluticasone nasal (Flonase) 2 Sprays Nasal Inhalation every day. hydrOXYzine (Vistaril 25 mg Cap) 1 Capsules By Mouth every 8 hours as needed as needed for anxiety. levothyroxine (levothyroxine 25 mcg (0.025 mg) Tab) 1 Tablets By Mouth every day. linaclotide (Linzess 145 mcg oral capsule) 1 Capsules By Mouth every day. Refills: 3. Non-Formulary Medication (Magnesium) psyllium (Metamucil 3.4 g/5.2 g oral powder) 3.4 Gram By Mouth 3 times a day as needed for constipation. Refills: 0. sertraline (Zoloft 100 mg Tab) 1 Tablets By Mouth every day. topiramate (Topamax 100 mg Tab) 1 Tablets By Mouth 2 times a day. along with 25mg. topiramate (Topamax 25 mg Tab) 1 Tablets By Mouth 2 times a day. along with 100mg. trazodone (traZODONE 50 mg Tab) 1 Tablets By Mouth once a day (at bedtime). umeclidinium-vilanterol (Anoro Ellipta) 1 Puffs Inhalation every day. Comment:Josemanuel [facility] I Recordon [id number] OR PACU I RecordMain OR PACU I Record PACU Phase I Document Type FT Summary Primary Physician: Saumya Pulido MD Finalized Date/Time: 01/29/25 17:15:10 Pt. Name: TANJA CARRERO/Sex: 1965 Female Med Rec #: [id number] Physician: Saumya Pulido MD Financial #: [id number] Pt. Type: O Room/Bed: / Admit/Disch: 01/29/25 12:40:32 - Institution: Case Times PACU I FT Pre-Care Text: Identifies barriers to communication and implements measures to provide psychological support Develops individualized plan of care, and ensures continuity of care Maintains patient's dignity and privacy, and maintains patient confidentiality Identifies and reports philosophical, cultural, and spiritual beliefs and values Identifies individual values and wishes concerning care Implements aseptic technique, and administers prescribed antibiotic therapy and immunizing agents as ordered Evaluates postoperative tissue perfusion Implements thermoregulation measures, and monitors body temperature Evaluates postoperative respiratory status Evaluates postoperative cardiac status Evaluates postoperative neurological status Assesses pain control, collaborated in initiating patient-controlled analgesia and implements alternative methods of pain control Verifies allergies, administers prescribed medications and solutions, evaluates response to medications Entry 1 In PACU I 01/29/25 14:58:00 Discharge from PACU 01/29/25 15:28:00 I Outcomes Met? Yes Last Modified By: Zoey Chatman RN 01/29/25 17:14:54 Post-Care Text: The patient demonstrates knowledge of the expected response to the operative or invasive procedure The patient's care is consistent with the individualized perioperative plan of care The patient's rightto privacy is maintained The patient's value system, lifestyle, ethnicity, and culture are considered, respected, and incorporated into the perioperative plan of care The patient participates in decisions affecting his or her perioperative plan of care The patient is free from signs and symptoms of infection The patient has wound/tissue perfusion consistent with or improved from baseline levels established preoperatively The patient is at or returning to normothermia at the conclusion of the immediate postoperative period The patient's respiratory function is consistent with or improved from baseline levels established preoperativelyThe patient's cardiovascular status is consistent with or improved from baseline levels established preoperatively The patient's cardiovascular status is consistent with or improved from baseline levels established preoperatively The patient demonstrates and/or reports adequate pain control throughout the perioperative period The patient received appropriate medication(s), safely administered during the perioperativeperiod Acuity Level PACU I FT Entry 1 Start Time 01/29/25 14:58:00 Stop Time 01/29/25 15:28:00 Acuity Level Acuity Level I Last Modified By: Zoey Chatman RN 01/29/25 17:15:07 Finalized By: Zoey Chatman RN Document Signatures Signed By: Zoey Chatman RN 01/29/25 17:15[facility] Preoperative Recordon [id number] OR Preoperative RecordMain OR Preoperative Record Holding Area Document Type FT Summary Primary Physician: Saumya Pulido MD Finalized Date/Time: 01/29/25 13:08:07 Pt. Name: TANJA CARRERO/Sex: 1965 Female Med Rec #: [id number] Physician: Saumya Pulido MD Financial #: [id number] Pt. Type: O Room/Bed: / Admit/Disch: 01/29/25 12:40:32 - Institution: Case Times Holding FT Pre-Care Text: Verifies consent for planned procedure, identifies individual values and wishes concerning care, includes family members in perioperative teaching Secures patient's records' belongings, and valuables, maintains patient's dignity and privacy, and maintains patient confidentiality Entry 1 In Holding 01/29/25 12:40:00 Outcomes Met? Yes Last Modified By: Checo MANSFIELD, Ximena Smalls 01/29/25 12:58:21 Post-Care Text: The patient participates in decisions affecting his or her perioperative plan of care The patient'sright to privacy is maintained Surgery Checklist FT Entry 1 Patient Birthday, ID Band Procedure History and Physical, Identification: Check, Patient Verification: Surgical Consent, With Participation Patient NPO after Midnight: Yes Date/Time: 01/29/25 05:00:00 Personal Items: Glasses, Jewelry Personal Items GLASSES, RING, CLOTHES, Comment: SHOES Limitations: N/A Complaints of Pain: No Pain Comment: DENIES Operative Site n/a Marking: Marked By: N/A Availability Equipment Verified: Does Patient Smoke Yes If Yes to Smoking. 1 pack per day Cigars or Cigarettes. How much per day? Patient states Yes Comment - Adult natacha spouse postop adult Supervision supervision available Case Cancelled in No Holding Area see comments below for reason Last Modified By: Ximena Kessler RN 01/29/25 13:08:06 General Comments: Pt finished colon prep at 0500, states stool is clear liquid yellow, has been NPO since. /,RN Finalized By: Ximena Kessler RN Document Signatures Signed By: Ximena Kessler RN 01/29/25 13:07 Ximena Kessler RN 01/29/25 13:08 Unfinalized History Date/Time Username Reason for Unfinalizing Freetext Reason for Unfinalizing 01/29/25 13:07 [id number] Modifying Existing [facility] Outpatient Surgery Discharge Instructionon [id number] Surgery Discharge InstructionOutpatient Surgery Discharge Instruction [address] [address] Patient Discharge Instructions PERSON INFORMATION Name: TANJA CARRERO Date of : 1965 Current Date: 01/29/2025 14:26:49 PHYSICIANS Admitting Physician: Flash GRAY, Saumya Maynard Discharge Diagnosis: Change in bowel habits; Chronic GERD TANJA CARRERO has been given the following list of follow-up instructions, prescriptions, and patient education materials: PATIENT FOLLOW-UP INFORMATION Diet: Regular Discharge Activity: Resume normal activities in 24 hours Discharge Restrictions: No driving for 24 hrs Call Your Doctor For: Persistent or heavy bleeding IF UNABLE TO CONTACT YOUR PHYSICIAN AND YOU FEEL IT IS AN EMERGENCY, GO TO THE NEAREST EMERGENCY ROOM OR CALL 911 I, TANJA CARRERO, have received the attached patient education materials/instructions and have verbalized understanding: May we do a follow up call? Yes No I was present when discharge instructions were given Patient Signature Date Clinican/Nurse Signature Date Follow up: Pharmacy Information: You may receive a survey from [employer] asking you to rate your care experience. Your feedback is important and will help us understand what we do well and how we can improve the quality of care we provide to you, your loved ones and our community. It???s an honor to serve you. Thank you for choosing [facility] HERE ARE THE MEDICATION CHANGES THAT OCCURRED DURING YOUR HOSPITAL STAY Medications to Continue with No Changes Other Medications albuterol (albuterol HFA 90 mcg/inh MDI) 2 Puffs Inhalation every 6 hours as needed as needed for wheezing. atorvastatin (atorvastatin 10 mg Tab) 1 Tablets By Mouth every day. busPIRone (busPIRone 10 mg Tab) 1 Tablets By Mouth 2 times a day. cetirizine (cetirizine 10 mg Tab) 1 Tablets By Mouth every day. cyanocobalamin (Vitamin B12) esomeprazole (Nexium 40 mg Cap-EC) 1 Capsules By Mouth every day. Refills: 0. famotidine (famotidine 40 mg Tab) 1 Tablets By Mouth once a day (at bedtime). Refills: 0. fluticasone nasal (Flonase) 2 Sprays Nasal Inhalation every day. hydrOXYzine (Vistaril 25 mg Cap) 1 Capsules By Mouth every 8 hours as needed as needed for anxiety. levothyroxine (levothyroxine 25 mcg (0.025 mg) Tab) 1 Tablets By Mouth every day. linaclotide (Linzess 145 mcg oral capsule) 1 Capsules By Mouth every day. Refills: 3. Non-Formulary Medication (Magnesium) psyllium (Metamucil 3.4 g/5.2 g oral powder) 3.4 Gram By Mouth 3 times a day as needed for constipation. Refills: 0. sertraline (Zoloft 100 mg Tab) 1 Tablets By Mouth every day. topiramate (Topamax 100 mg Tab) 1 Tablets By Mouth 2 times a day. along with 25mg. topiramate (Topamax 25 mg Tab) 1 Tablets By Mouth 2 times a day. along with 100mg. trazodone (traZODONE 50 mg Tab) 1 Tablets By Mouth once a day (at bedtime). umeclidinium-vilanterol (Anoro Ellipta) 1 Puffs Inhalation every day. PATIENT EDUCATION INFORMATION Instructions: Medication Leaflets:[facility]*on 01-07-2025 Interpretation and review of laboratory resultsAbnormalNOMS HealthcareTBH OCCULT BLOODPositiveAbnormalNOMS HealthcareCLINISYNCNOMS HealthcareAmbulatory Visit Summaryon [id number] Visit SummaryAmbulatory Visit Summary TANJA CARRERO :1965 Visit Date:01/02/2025 Ambulatory Visit Instructions Your Diagnosis GERD (gastroesophageal reflux disease) Hematemesis Diarrhea Colon cancer screening Your Care Team Attending Physician - Saumya Pulido MD Primary Care Physician - MINDA YEBOAH CNP This Is Your Medications List esomeprazole (Nexium 40 mg Cap-EC) famotidine (famotidine 40 mg Tab) linaclotide (Linzess 145 mcg oral capsule) polyethylene glycol 3350 with electrolytes (NuLYTELY [place] oral powder for reconstitution) psyllium (Metamucil 3.4 g/5.2 g oral powder) Contact prescribing physician if questions or concerns Non-Formulary Medication (Magnesium) albuterol (albuterol HFA 90 mcg/inh MDI) atorvastatin (atorvastatin 10 mg Tab) busPIRone (busPIRone 10 mg Tab) cetirizine (cetirizine 10 mg Tab) cyanocobalamin (Vitamin B12) fluticasone nasal (Flonase) hydrOXYzine (Vistaril 25 mg Cap) levothyroxine (levothyroxine 25 mcg (0.025 mg) Tab) sertraline (Zoloft 100 mg Tab) topiramate (Topamax 100 mg Tab) topiramate (Topamax 25 mg Tab) trazodone (traZODONE 50 mg Tab) umeclidinium-vilanterol (Anoro Ellipta) [Image Removed: STOP]Stop taking these medications omeprazole (omeprazole 40 mg Cap-DR) Procedures Performed Appendectomy. Discharge Vitals Heart Rate (Peripheral) 89 Respiratory Rate 14 Blood Pressure 116/84 Height 169 cm Height 67 in Weight 89 kg Weight 196.211 lb BMI 31.16 Medications What How Much When Why Instructions New esomeprazole (Nexium 40 mg Cap-EC) 1 Capsules By Mouth Every day Pickup at [facility] New famotidine (famotidine 40 mg Tab) 1 Tablets By Mouth Once a day (at bedtime) Pickup at [facility] New linaclotide (Linzess 145 mcg oral capsule) 1 Capsules By Mouth Every day Refills: 3 Pickup at [facility] New polyethylene glycol 3350 with electrolytes (NuLYTELY [place] oral powder for reconstitution) Seeinstructions GERD (gastroesophageal reflux disease) Hematemesis Diarrhea Colon cancer screening follow up physicians insctructions Pickup at [facility] New psyllium (Metamucil 3.4 g/ 5.2 g oral powder) 3.4 Gram By Mouth 3 times a day as needed for forconstipation GERD (gastroesophageal reflux disease) Hematemesis Diarrhea Colon cancer screening Pickup at [facility] Unchanged albuterol (albuterol HFA 90 mcg/ inh MDI) 2 Puffs Inhalation Every 6 hours as needed for as needed for wheezing Contact prescribing physician if questions or concerns Unchanged atorvastatin (atorvastatin 10 mg Tab) 1 Tablets By Mouth Every day Contact prescribing physician if questions or concerns Unchanged busPIRone (busPIRone 10 mg Tab) 1 Tablets By Mouth 2 times a day Contact prescribing physician if questions or concerns Unchanged cetirizine (cetirizine 10 mg Tab) 1 Tablets By Mouth Every day Contact prescribing physician if questions or concerns Unchanged cyanocobalamin (Vitamin B12) Contact prescribing physician if questions or concerns Unchanged fluticasone nasal (Flonase) 2 Sprays Nasal Inhalation Every day Contact prescribing physician if questions or concerns Unchanged hydrOXYzine (Vistaril 25 mg Cap) 1 Capsules By Mouth Every 8 hours as needed for as needed for anxiety Contact prescribing physician if questions or concerns Unchanged levothyroxine (levothyroxine 25 mcg (0.025 mg) Tab) 1 Tablets By Mouth Every day Contact prescribing physician if questions or concerns Unchanged Non-Formulary Medication (Magnesium) See instructions Contact prescribing physician if questions or concerns Unchanged sertraline (Zoloft 100 mg Tab) 1 Tablets By Mouth Every day Contact prescribing physicianif questions or concerns Unchanged topiramate (Topamax 100 mg Tab) 1 Tablets By Mouth 2 times a day along with 25mg Contact prescribing physician if questions or concerns Unchanged topiramate (Topamax 25 mg Tab) 1 Tablets By Mouth 2 times a day along with 100mg Contact prescribing physician if questions or concerns Unchanged trazodone (traZODONE 50 mg Tab) 1 Tablets By Mouth Once a day (at bedtime) Contact prescribing physician if questions or concerns Unchanged umeclidinium-vilanterol (Anoro Ellipta) 1 Puffs Inhalation Every day Contact prescribing physician if questions or concerns Pharmacy Information [facility]: [address], [place] [phone] What How Much When Comments Stop Taking omeprazole (omeprazole 40 mg Cap-DR) 1 Capsules By Mouth Every day Allergies No Known Allergies No Known Medication Allergies Problems Ongoing - Any problem that you are currently receiving treatment for. Anemia Anxiety Constipation Depression Diarrhea GERD (gastroesophageal reflux disease) Hematemesis Hyperlipidemia Hypokalemia Hypothyroidism Insomnia Lumbosacral spondylosis Migraines Ray (more content not included)...NormalFisher [facility] Office/Clinic Noteon [id number] Office/Clinic NoteGastroenterology Office/Clinic Note Chief Complaint ref by Caryn for GERD, hematemesis, diarrhea HPI Staff New patient is a(n) 59 year old female who was referred by Caryn for GERD, hematemesis and diarrhea. Pt had episode of bloody emesis after drinking 4 rum and cokes in a single episode. Does not normally drink. Had 5 bright red bloody emesis that night and none after. Diarrhea has been persistent for about a month. 2-3 BM's a day. Denies blood but stools do look dark in color, but not black stools. Associated bloating. PCP advised to stop Omeprazole and start Pantoprazole 40mg daily. Previous EGD Colonoscopy- many years ago, 10/12 years, [facility]. Any Fhx colon cancer/diseases? No. Any blood thinners? no Any GLP-1 agonists? no Labs 12/18/24 @ [facility]: RBC 4.05 (L) RDW 15.3 (H) MPV 9.2 (L) Monocytes Percent Manual 0.0 (L) Basophils Percent Manual 0.0 (L) Monocytes Absolute Manual 0.00 (L) Sodium 133 (L) BUN 6.0 (L) Creatinine 1.05 (H) Estimated GFR 54 (H) Calcium 10.3 (H) Magnesium 1.6 (L) Cholesterol 236 (H) TSH 1.851 Vitamin D 41.2 Free T4 0.96 History of Present Illness Reviewed HPI collected by staff Review of Systems PHQ Score Initial Depression Screen Score: 0 SCORE .ros Physical Exam Vitals & Measurements HR: 89(Peripheral) RR: 14 BP: 116/84 HT: 169 cm HT: 67 in WT: 89 kg WT: 196.211 lb BMI: 31.16 No acute distress Assessment/Plan 1. GERD (gastroesophageal reflux disease) (K21.9: Gastro-esophageal reflux disease without esophagitis) Feels acid coming up, feels like she is going to vomit Not controlled with Omeprazole - Switch Omeprazole to Nexium in the morning - Add Famotidine at bedtime 2. Hematemesis (K92.0: Hematemesis) Pt had episode of bloody emesis after drinking 4 rum and cokes in a single episode. Does not normally drink. Had 5 bright red bloody emesis that night and none after. Denies any recent symptoms Denies hematochezia and melena - Schedule EGD to evaluate. Discussed risks such as bleeding, injury and perforation as well as benefits. Patient agreeable. 3. Diarrhea (R19.7: Diarrhea, unspecified) She reports having a colonoscopy about 12 years ago Bowels change between constipation and diarrhea Uses magnesium citrate, sometimes has relief with it Failed MiraLax - Recommended water-soluble fibers (Metamucil or Citracel) - Linzess prescribed - Advised to get prunes, kiwi fruits and stay well hydrated - Schedule Colonoscopy to evaluate. Discussed risks such as bleeding, injury and perforation as well as benefits. Patient agreeable. I, Carolina Morton, personally scribed for Saumya Pulido on 01/02/2025 13:25:05. . Follow-up No qualifying data available Problem List/Past Medical History Ongoing Anemia Anxiety Constipation Depression Diarrhea GERD (gastroesophageal reflux disease) Hematemesis Hyperlipidemia Hypokalemia Hypothyroidism Insomnia Lumbosacral spondylosis Migraines Raynaud's disease Seasonal allergies Seizures Thyroid nodule Tobacco user Unintentional weight loss Historical No qualifying data Procedure/Surgical History Appendectomy. Medications albuterol HFA 90 mcg/inh MDI, 2 puff(s), Inhalation, q6hr, PRN Anoro Ellipta, 1 puff(s), Inhalation, Daily atorvastatin 10 mg Tab, 10 mg= 1 tab(s), Oral, Daily busPIRone 10 mg Tab, 10 mg= 1 tab(s), Oral, BID cetirizine 10 mg Tab, 10 mg= 1 tab(s), Oral, Daily famotidine 40 mg Tab, 40 mg= 1 tab(s), Oral, Once a day (at bedtime) Flonase, 2 spray(s), Nasal, Daily levothyroxine 25 mcg (0.025 mg) Tab, 25 mcg= 1 tab(s), Oral, Daily Linzess 145 mcg oral capsule, 145 mcg= 1 cap(s), Oral, Daily, 3 refills Magnesium, See Instructions Metamucil 3.4 g/5.2 g oral powder, 3.4 gm, Oral, TID, PRN Nexium 40 mg Cap-EC, 40 mg= 1 cap(s), Oral, Daily NuLYTELY [place]wood oral powder for reconstitution, See Instructions Topamax 100 mg Tab, 100 mg= 1 tab(s), Oral, BID Topamax 25 mg Tab, 25 mg= 1 tab(s), Oral, BID traZODONE 50 mg Tab, 50 mg= 1 tab(s), Oral, Once a day (at bedtime) Vistaril 25 mg Cap, 25 mg= 1 cap(s), Oral, q8hr, PRN Vitamin B12 Zoloft 100 mg Tab, 100 mg= 1 tab(s), Oral, Daily Allergies No Known Allergies No Known Medication Allergies Social History Alcohol Past. Beer. 1-2 times per year., 12/19/2024 Substance Abuse Never., 12/19/2024 Tobacco 10 or more cigarettes (1/2 pack or more)/day in last 30 days Tobacco Use:., 01/02/2025 10 or more cigarettes (1/2 pack or more)/day in last 30 days Tobacco Use:., 12/19/2024 Family History Hypertension: Mother and Father. Hypothyroidism: Mother. Ovarian cancer: Mother. Rheumatoid arthritis: Mother. Immunizations Vaccine Date Status influenza virus vaccine, inactivated [facility]/2015 [facility]Result Comment: Electronically Signed By: Saumya Pulido MD\.br\Date and Time Signed: 01/02/25 13:40 EDT\.br\Electronically Co-Signed By: Carolina Morton MA\.br\Date and Time Co- Signed: 01/02/25 13:31 EDTMM TOMOSYNTHESIS SCREENING BIon [id number] [address] Mammography Report Signed Patient: TANJA CARRERO MR#: [id number] : 1965 Acct:[id number] Age/Sex: 59 / F ADM Date: 01/01/25 Loc: MAMMO Attending Dr: Minda Yeboah NP Ordering Physician: Minda Yeboah NP Results: Date of Service: 01/01/25 Follow Up: Procedure(s): MM tomosynthesis screening BI Accession Number(s): [id number] cc: Minda Yeboah NP Patient Name: TANJA CARRERO MR#: [id number] : 1965 Exam Date: 01/01/2025 Ordering Doctor: [...] uterine cancer at age 22. LOCATION: [facility] BREAST COMPOSITION: The breasts are heterogeneously dense,which [...] Signed By: 01/02/25 1004 DD/ 1003 TD/TT: Freight Broker:TBHRadiology, Radiologist, - 01/02/2025 [place] [address] Mammography Report Signed Patient: TANJA CARRERO MR#: [id number] : 1965 Acct:[id number] Age/Sex: 59 / F ADM Date: 01/01/25 Loc: MAMMO Attending Dr: Minda Yeboah NP Ordering Physician: Minda Yeboah NP Results: Date of Service: 01/01/25 Follow Up: Procedure(s): MM tomosynthesis screening BI Accession Number(s): [id number] cc: Minda Yeboah NP Patient Name: TANJA CARRERO MR#: [id number] : 1965 Exam Date: 01/01/2025 Ordering Doctor: CHERYL YEBOAH INSULATOR TECHNICIAN RADIOLOGY REPORT PROCEDURE: MM TOMOSYNTHESIS SCREENING BI COMPARISON: MM TOMOSYNTHESIS SCREENING BI, 08/17/2023. MG MAMM CLARIBEL DIAG W CAD DIG, 01/15/2016. INDICATIONS: Screening Calculator Name NCI Breast Cancer Risk Assessment Tool 5 Year Breast Cancer Risk 1.00% Lifetime Breast Cancer Risk 6.50% Personal Breast Cancer No Personal Ovarian Cancer No Treatments None Family Cancers Mother with uterine cancer at age 20. LOCATION: [facility] BREAST COMPOSITION: The breasts are heterogeneously dense,which [...] Signed By: 01/02/25 1004 DD/ 1003 TD/TT: Freight Broker: JONN HealthcareRadiology Study observation (narrative)[facility] TOMOSYNTHESIS SCREENING BIOrdered By: Radiologist Radiology on [id number] Healthcare Work Phone: us Thyroid glandon [phone] [address] Ultrasound Report Signed Patient: TANJA CARRERO MR#: [id number] : 1965 Acct:[id number] Age/Sex: 59 / F ADM Date: 01/01/25 Loc: MAMMO Attending Dr: Minda J Aichholz FLOOR SANDER Ordering Physician: Minda Yeboah NP Date of Service: 01/01/25 Procedure(s): US thyroid Accession Number(s): [id number] cc: Minda Yeboah NP The [address] [address] Patient Name: TANJA CARRERO MRN: [id number] date: 1965 Sex: F Assigned Patient Location: MAMMO Current Patient Location: [facility] Accession/Order Number: [id number] Exam Date: 01/01/2025 15:06 Report Date: 01/01/2025 [...] Bernal M.D. 01/01/2025 3:09 PM Dictation Location: [place] [address] Electronically authenticated by: [id number] Y Date: 01/01/2025 15:09 Dictated By: Anam Bernal D.O. Signed By: 01/01/25 1512 DD/ 1509 TD/TT: Freight Broker:JETHRadiology, Radiologist, MD - 01/01/2025 [place] [address] Ultrasound Report Signed Patient: TANJA CARRERO MR#: [id number] : 1965 Acct:[id number] Age/Sex: 59 / F ADM Date: 01/01/25 Loc: MAMMO Attending Dr: Minda Yeboah NP Ordering Physician: Minda Yeboah NP Date of Service: 01/01/25 Procedure(s): US thyroid Accession Number(s): [id number] cc: Minda Yeboah NP [address] [address] Patient Name: TAJNA CARRERO MRN: [id number] date: 1965 Sex: F Assigned Patient Location: MAMMO Current Patient Location: MAMMO Accession/Order Number: [id number] Exam Date: 01/01/2025 15:06 Report Date: 01/01/2025 [...] Bernal M.D. 01/01/2025 3:09 PM Dictation Location: [place] [address] Electronically authenticated by: [id number] Y Date: 01/01/2025 15:09 Dictated By: Anam Bernal D.O. Signed By: 01/01/25 1512 DD/ 1509 TD/TT: Freight Broker: JONN HealthcareRadiology Study observation (narrative)NOMWashington HealthcareUS Thyroid glandOrdered By: Radiologist Radiology on [id number] Healthcare Work Phone: all CBC WITH AUTO DIFFon [id number] distribution width (RBC) [Ratio]15.3 %High11.0 - 15.0 %NOMS HealthcareHematocrit (Bld) [Volume fraction]36.7 %36.0 - 48.0 %NOMS HealthcareHemoglobin (Bld) [Mass/Vol]12.2 g/dL12.0 - 16.0 g/dLSaint Joseph Health CenterInterpretation and review of laboratory resultsAbnormalSSM DePaul Health Center (RBC) [Entitic mass]30.1 pg26.7 - 34.0 pgSSM DePaul Health CenterHC (RBC) [Mass/Vol]33.2 g/dL29.9 - 35.2 g/dLSSM DePaul Health CenterV (RBC) [Entitic vol]90.6 fL81.0 - 99.0 fLSaint Joseph Health CenterPlatelet mean volume (Bld) [Entitic vol]9.2 fLLow9.5 - 13.5 fLMid [facility] WMC066 [facility] RBC4.05LowMid [facility] Mental Health Center WBC6.8Saint Joseph Health CenterCLINISYNC [facility] Cultureon 58-65-3161Cdqftver identified Cx Nom (U)ORGANISM: Escherichia coli (O:ESCCOL) [place] Count 75,000 Aerobic CARLOS Charge (NMIC56) SUSCEPTIBILITY ORGANISM: O:ESCCOL ANTIBIOTIC INTERPRETATION CARLOS Amikacin S <16 Amoxacillin/K Clavulanate S <8 Ampicillin S <8 Ampicillin/Sulbactam S <4 Aztreonam S <4 Cefazolin S <2 Cefepime S <2 Ceftazidime S <1 Ceftazidime/Avibactam S <4 Ceftolozane/Tazobactam S <2 Ceftriaxone S <1 Cefuroxime S <4 Ciprofloxacin S <0.25 Ertapenem S <0.5 Gentamicin S <2 Levofloxacin S <0.5 Meropenem S <1 Meropenem/Vaborbactam S <2 Nitrofurantoin S <32 Piperacillin/Tazobactam S <8 Tetracycline S <4 Tigecycline S <2 Tobramycin S <2 Trimethoprim/Sulfamethoxazole S <0.5 S = SUSCEPTIBLE I = INTERMEDIATE R = RESISTANT BLANK = DATA NOT AVAILABLE, OR DRUG NOT ADVISABLE OR TESTED R* = RESISTANCE DUE TO EXTENDED SPECTRUM BETA-LACTAMASES ESBL = EXTENDED SPECTRUM BETA-LACTAMASE TFG = THYMIDINE-DEPENDENT STRAIN CARLOS = BETA-LACTAMASE POSITIVE IB = INDUCIBLE BETA-LACTAMASE. APPEARS IN PLACE OF 'S' WITH SPECIES KNOWN TO POSSESS INDUCIBLE BETA-LACTAMASES. POTENTIALLY THEY MAY BECOME RESISTANT TO ALL B-LACTAM DRUGS. PERFORMED BY: [address] [place] [address] PATHOLOGIST DIRECTOR OF SPECIAL EDUCATION WES GILMORE M.D.[facility] Physician GroupComment on above: Performed By: #### CUU #### [address] [address] USABasic Metabolic Profon 08-00-7608Zcjss gap [Moles/Vol]12 mmol/LNormal9-16[facility] HospitalComment on above:Performed By: #### CDP, BMP #### [address] [place], [place] [address] Gl Accountant: Natacha Rivers MDBUN/CRE [id number] Comment on above:Performed By: #### CDP, BMP #### [address] [place] [address] Gl Accountant: ELLIS Parisialcium [Mass/Vol]9.9 mg/dLNormal8.6-10.4[facility] HospitalComment on above:Performed By: #### CDP, BMP #### [address] [place], [place] [id number] Gl Accountant: ELLIS Parisihloride [Moles/Vol]99 mmol/OTbhssg38-137KcfswClermont County HospitalComment on above:Performed By: #### CDP, BMP #### [facility] [address] [place] [address] [place] [address] Gl Accountant: ELLIS ParisiO2 [Moles/Vol]23 mmol/SOeuxsx27-43BucytClermont County HospitalComment on above:Performed By: #### CDP, BMP #### [address] [place], [place] [address] Gl Accountant: ELLIS Parisireatinine [Mass/Vol]1.2 mg/dLHigh0.50-0.90Cl[facility] HospitalComment on above:Performed By: #### CDP, BMP #### [address] [place] [address] Gl Accountant: Natacha Rivers MDGFR/1.73 sq M.predicted among non-blacks MDRD (S/P/Bld) [Vol rate/Area]54 mL/min/{1.73_m2}Low>60[facility]rist[facility] HospitalComment on above:Result Comment: These results are not intended for [...] or following therapy that affects renal tubular secretion.Performed By: #### CDP, BMP #### [address] [place] [address] Gl Accountant: Natacha Rivers MDGlucose [Mass/Vol]95 mg/kHHvvndt50-30Pkwdm Bristow HospitalComment on above:Performed By: #### BOBO, BMP #### [address] [place] [address] Gl Accountant: MOUSTAPHA Parisiotassium [Moles/Vol]4.1 mmol/LNormal3.7-5.3[facility]rist[facility] HospitalComment on above:Performed By: #### CDP, BMP #### [address] [place] [address] Gl Accountant: Natacha Rivers MDSodium [Moles/Vol]134 mmol/OTdk665-935Kxlez Tiffin HospitalComment on above:Performed By: #### CDP, BMP #### [address] [place] [address] Gl Accountant: Natacha Rivers MDUrea nitrogen [Mass/Vol]13 mg/dLNormal6-20[facility] HospitalComment on above:Performed By: #### CDP, BMP #### [address] [place] [address] Gl Accountant: ELLIS Parisi with Diffon 51-51-7572Cqg. Basophil0.03 k/uL Normal0.00-0.20MerOhioHealth HospitalComment on above:Performed By: #### CDP, BMP #### [address] [place] [address] Gl Accountant: Tiffany Parisi.Imm.Granulocyte0.04 k/uLNormal0.00-0.30MerOhioHealth HospitalComment on above:Performed By: #### BOBO, BMP #### [address] [place], [place] [address] Gl Accountant: Tiffany Parisi.Neutrophil (Seg)7.56 k/uLNormal1.50-8.10[facility] HospitalComment on above:Performed By: #### BOBO, BMP #### [address] [place], [facility]83 Gl Accountant: Natacha Rivers MDBasophils/100 WBC (Bld)0 %Normal0-2Mer[facility]ristow HospitalComment on above:Performed By: #### CDP, BMP #### [address] [place], [facility]83 Gl Accountant: Natacha Rivers MDEosinophils (Bld) [#/Vol]0.09 10*3/uLNormal 0.00-0.44MerOhioHealth HospitalComment on above:Performed By: #### BOBO, BMP #### [address] [place], [facility]83 Gl Accountant: Natacha Sturtz, MDEosinophils/100 WBC (Bld)1 %Normal1-4[facility] HospitalComment on above:Performed By: #### CDP, BMP #### [address] [place] [address] Gl Accountant: Natacha Rivers MDErythrocyte distribution width (RBC) [Ratio]13.2 % Tpbyxa43.8-14.4[facility] HospitalComment on above:Performed By: #### CDP, BMP #### [address] [place], [place] [address] Gl Accountant: Natacha Rivers MDHematocrit (Bld) [Volume fraction]37.8 %Normal 36.3-47.1MKettering Health Hamilton HospitalComment on above:Performed By: #### BOBO, BMP #### [address] [place] [address] Gl Accountant: Natacha Rivers MDHemoglobin (Bld) [Mass/Vol]12.8 g/dLNormal 11.9-15.1MKettering Health Hamilton HospitalComment on above:Performed By: #### BOBO, BMP #### [address] [place], [place] [address] Gl Accountant: Natacha Rivers MDImmature granulocytes/100 WBC (Bld)0 %Qxfdiu9Pytgt Tiffin HospitalComment on above:Performed By: #### BOBO, BMP #### [address] [place], [place] [address] Gl Accountant: Natacha Rivers MDLymphocytes (Bld) [#/Vol]2.72 10*3/uLNormal 1.10-3.70Clermont County HospitalComment on above:Performed By: #### CDP, BMP #### [address] [place] [address] Gl Accountant: Ivelisse Parisimphocytes/100 WBC (Bld)25 %Wrppzm27-93OjdehClermont County HospitalComment on above:Performed By: #### CDP, BMP #### [address] [place], [place] 9107483 Gl Accountant: TRENTON ParisiCH (RBC) [Entitic mass]29.5 uyUdqevc59.2-33.5 [facility] HospitalComment on above:Performed By: #### CDP, BMP #### [address] [place], [place] [address] Gl Accountant: TRENTON ParisiCHC (RBC) [Mass/Vol]33.9 g/lQOjlbvq28.4-34.8Cl[facility] County HospitalComment on above:Performed By: #### CDP, BMP #### [address] [place], [place] 50[address] Gl Accountant: TRENTON ParisiCV (RBC) [Entitic vol]87.1 uKIrzgdq79.6-102.9 [facility] HospitalComment on above:Performed By: #### CDP, BMP #### [address] [place], [place] [address]83 Gl Accountant: TRENTON Parisionocytes (Bld) [#/Vol]0.49 10*3/uLNormal0.10-1.20 [facility] HospitalComment on above:Performed By: #### CDP, BMP #### [address] [place], [place] 6[address] Gl Accountant: TRENTON Parisionocytes/100 WBC (Bld)5 %Normal3-12Cl[facility] County HospitalComment on above:Performed By: #### CDP, BMP #### [address] [place], [place] [address] Gl Accountant: Natacha Rivers MDNeutrophil (Seg)69 %Jvzc42-53EpvvbClermont County Hospital Comment on above:Performed By: #### CDP, BMP #### [address] [place] [address] Gl Accountant: JAMA Parisi Automated0.0 per 100 WBCNormal0.0Clerm[facility] County HospitalComment on above:Performed By: #### CDP, BMP #### [address] [place] [address] Gl Accountant: Jovana Parisi mean volume (Bld) [Entitic vol]9.4 fL Normal8.1-13.5Clerm[facility] County HospitalComment on above:Performed By: #### CDP, BMP #### [address] [place] [address] Gl Accountant: Jorge Parisi (Bld) [#/Vol]386 10*3/yREzptdv763-815 [facility] HospitalComment on above:Performed By: #### BOBO, BMP #### [address] [place] [address] Gl Accountant: LILLIAM Parisi (Bld) [#/Vol]4.34 10*6/uLNormal3.95-5.11Cl[facility] County HospitalComment on above:Performed By: #### BOBO, BMP #### [address] [place] [address] Gl Accountant: GENESIS Parisi (Bld) [#/Vol]10.9 10*3/uLNormal3.5-11.3MKettering Health Hamilton HospitalComment on above:Performed By: #### CDP, BMP #### [address] [place], [place] [address] Gl Accountant: Natacha Rivers MDCT HEAD WO CONTRASTon 56-56-5912SJ HEAD WO CONTRASTEXAMINATION: CT OF THE HEAD WITHOUT CONTRAST 08/21/2024 [...] emergency medical condition->Emergency Medical Condition (MA) FINDINGS: BRAIN/VENTRICLES: There is [...] Signed by: Iftikhar Mccormick MD 08/21/24 Final resultNormalCleveland ClinicPLETE BLOOD COUNTon 08-19-2024 Erythrocyte distribution width (RBC) [Ratio]13.9 %Fjunlo42.5-15.0ProJoint Township District Memorial HospitalComment on above:Performed By: #### SIDNEY, 1985-11, , CBC, 24499-3, 89695-5 #### [facility] ([id number]) [address], [address] [place], [place] [address]Zlmxgfbjpt (Bld) [Volume fraction]37.0 %Iiclis03-13EgdIuwrlcJoint Township District Memorial HospitalComment on above:Performed By: #### SIDNEY, 1985-11, , CBC, 92292-7, 87210-1 #### [facility] ([id number]) [address], [address] [place], [place] [address]Svejybansh (Bld) [Mass/Vol]12.7 g/vENforee67.7-15.5PFirelands Regional Medical Center South CampusComment on above:Performed By: #### SIDNEY, 1985-11, , CBC, 38767-4, 02927-4 #### [facility] ([id number]) [address], [address] [place], [place] [address]UZF (RBC) [Entitic mass]30.0 cnCppxvl80-03UhrDxkdoi Ch HospitalComment on above:Performed By: #### SIDNEY, 1985-11, , CBC, 19644-6, 26198-6 #### [facility] ([id number]) [address], [address] [place], [place] [address]KENV (RBC) [Mass/Vol]34.3 g/oAWtwzkg93-15EbcPiphfq Ch HospitalComment on above:Performed By: #### SIDNEY, 1985-11, , CBC, 49273-1, 96612-7 #### [facility] ([id number]) [address], [address] [place], [place] [address]JFL (RBC) [Entitic vol]88 hCFpoaxb63-866QrwLxsknl Ch HospitalComment on above:Performed By: #### SIDNEY, 1985-11, , CBC, 94389-3, 71802-7 #### [facility] ([id number]) [address], [address] [place], [place] [address]Mefcyqsj mean volume (Bld) [Entitic vol]7.6 fLNormal7-12 [facility] Ch HospitalComment on above:Performed By: #### SIDNEY, 1985-11, , CBC, 04957-7, 66559-2 #### [facility] ([id number]) [address], [address] [place], [place] [address]Wccpqlguk (Bld) [#/Vol]358 10*3/xVPxbmck104-113HzjEmfrsb Ch HospitalComment on above:Performed By: #### SIDNEY, 1985-11, , CBC, 11947-7, 19160-4 #### [facility] ([id number]) [address], [address] [place], [place] [address]QLS COUNT4.23 X10E12/LNormal3.80-5.20ProMccull[facility] Hospital Comment on above:Performed By: #### SIDNEY, 1985-11, , CBC, 59206-0, 04569-3 #### [facility] ([id number]) [address], [address] [place] [address]KTC (Bld) [#/Vol]9.6 10*3/uLNormal4.0-11.0ProMccullough-Hyde Memorial Hospital HospitalComment on above:Performed By: #### SIDNEY, 1985-11, , CBC, 71381-7, 28475-0 #### [facility] ([id number]) [address], [address] [place] [address]BCATKUCQDQAMY METABOLIC PANELon 37-10-1723Dilrfay [Mass/Vol]3.9 g/dLNormal3.2-5.3Pro[facility] Cook HospitalComment on above:Performed By: #### SIDNEY, 1985-11, , CBC, 00236-7, 59458-3 #### [facility] ([id number]) [address], [address] [place] [address]NYB [Catalytic activity/Vol]101 U/HKtiubn01-601DtaNgqzxr [place] HospitalComment on above:Performed By: #### SIDNEY, 1985-11, , CBC, 52350-7, 42082-3 #### [facility] ([id number]) [address], [address] [place], [place] [address]QDJ [Catalytic activity/Vol]23 U/LNormal0-31ProMedCoshocton Regional Medical Center HospitalComment on above:Performed By: #### SIDNEY, 1985-11, , CBC, 44026-5, 91598-0 #### [facility] ([id number]) [address], [address] [place], [place] [address]Ghdep gap [Moles/Vol]9 mmol/LNormal5-15ProM[facility] Hospital Comment on above:Performed By: #### SIDNEY, 1985-11, , CBC, 78343-8, 04188-1 #### [facility] ([id number]) [address], [address] [place], [place] [address]REG [Catalytic activity/Vol]23 U/LNormal0-41ProMccull[facility] HospitalComment on above:Performed By: #### SIDNEY, 1985-11, , CBC, 83471-5, 21751-5 #### [facility] ([id number]) [address], [address] [place], [place] [address]Metsbqvxb [Mass/Vol]0.5 mg/dLNormal0.3-1.2ProMedica Cook HospitalComment on above:Performed By: #### SIDNEY, 1985-11, , CBC, 73091-9, 45326-5 #### [facility] ([id number]) [address], [address] [place], [place] [address]Ghnjgwc [Mass/Vol]10.1 mg/dLNormal8.5-10.5ProMedCoshocton Regional Medical Center HospitalComment on above:Performed By: #### SIDNEY, 1985-11, , CBC, 56799-7, 95541-0 #### [facility] ([id number]) [address], [address] [place], [place] [address]Xhglupor [Moles/Vol]101 mmol/MDtlapy56-655HlePcjxkg [place] HospitalComment on above:Performed By: #### SIDNEY, 1985-11, , CBC, 10009-3, 11456-8 #### [facility] ([id number]) [address], [address] [place], [place] [address]IK0 [Moles/Vol]25 mmol/UHljmje37-38IlxCmuwab Ch Hospital Comment on above:Performed By: #### SIDNEY, 1985-11, , CBC, 12126-9, 94732-1 #### [facility] ([id number]) [address], [address] [place], [place] [address]Makdtotnke [Mass/Vol]1.24 mg/dLHigh0.40-1.00ProJoint Township District Memorial HospitalComment on above:Result Comment: METHOD TRACEABLE TO IDMS STANDARD Performed By: #### SIDNEY, 1985-11, , CBC, 15765-8, 48612-9 #### [facility] ([id number]) [address], [facility] [address] [place], [place] [address]WEP/1.73 sq M.predicted among non-blacks MDRD (S/P/Bld) [Vol rate/Area]51 mL/min/{1.73_m2}Low>59ProJoint Township District Memorial HospitalComment on above: Result Comment: Reported eGFR is based on the CKD-EPI 2020 equation that does not use a race coefficient.Performed By: #### SIDNEY, 1985-11, , [place], [address]- 1, 92272-3 #### [facility] ([id number]) [address], [address] [place], [place] [address]Ktqxhza [Mass/Vol]81 mg/bLQjpuew09-15EqfJmwqqkOhioHealth O'Blen[facility] Hospital Comment on above:Performed By: #### SIDNEY, 1985-11, , [facility], 22829-6, 91233-3 #### [facility] ([id number]) [address], [address] [place], [place] [address]Kteexkcae [Moles/Vol]4.4 mmol/LNormal3.5-5.0ProJoint Township District Memorial HospitalComment on above:Performed By: #### SIDNEY, 1985-11, , CBC, 49470-6, 16345-7 #### [facility] ([id number]) [address], [address] [place] [address]Ufvkqid [Mass/Vol]7.6 g/dLNormal6.0-8.0[facility] Comment on above:Performed By: #### SIDNEY, 1987-[birth year], , CBC, 41056-9, 22627-5 #### [facility] ([id number]) [address], [address] [place] [address]Dhtifi [Moles/Vol]135 mmol/IEjchob726-125ZgvFdgfua [place] HospitalComment on above:Performed By: #### SIDNEY, 1987-11, , CBC, 56419-9, 28246-6 #### [facility] ([id number]) [address], [address] [place], [place] [address]Wbqj nitrogen [Mass/Vol]10 mg/dLNormal5-23ProJoint Township District Memorial HospitalComment on above:Performed By: #### SIDNEY, 1985-11, , CBC, 95600-5, 81901-1 #### [facility] ([id number]) [address], [facility] [address] [place] [address]FZI [Mass/Vol]on 08-19-2024 REACTIVE PROTEIN1.4 mg/dLHigh 0.000-0.744PFirelands Regional Medical Center South CampusComment on above:Performed By: #### SIDNEY, 1985-11, , CBC, 13350-3, 96494-8 #### [facility] ([id number]) [address], [address] [place], [place] [address]WXL Photometric method (Bld) [Velocity]on 29-69-2895VSJ, ERYTHROCYTE SEDIMENTATION RATE31 mm/hHigh0-30ProJoint Township District Memorial HospitalComment on above:Performed By: #### SIDNEY, 1985-11, , CBC, 90282-7, 38123-4 #### [facility] ([id number]) [address] [place], [place] [address]Ecvfeqaild factor Nephelometry Qn (S)on 92-20-4472MRZCDIKGJZ CMFWZM10 IU/mLNormal<20Pro[facility] Cook HospitalComment on above:Performed By: #### CMP, 1988-5, 81823-0, CBC, 70296-4, 23848-4 #### [facility] ([id number]) [address] [place], [place] [address]FQH LIPID PROFILE (FASTING)on 61-92-6171KLWN HDL RATIO3.5NOUT HealthcareComment on above:3.3 - 4.4 LOW RISK 4.4 - 7.1 AVERAGE RISK 7.1 - 11.0 MODERATE RISK >11.0 HIGH RISK Cholesterol [Mass/Vol]189 mg/dLNINF - 200 mg/dLNOUT HealthcareCholesterol in HDL [Mass/Vol]54 mg/dL40 - 60 mg/dLNOUT HealthcareComment on above:> or =60 mg/dl - LOW CARDIOVASCULAR RISK <40 mg/dl - HIGH CARDIOVASCULAR RISK Magnesium [Mass/Vol]115.8 mg/dLNOUT HealthcareComment on above:<100 mg/dl OPTIMAL 100-129 mg/dl NEAR OR ABOVE OPTIMAL 130-159 mg/dl BORDERLINE HIGH 160-189 mg/dl HIGH >190 mg/dl VERY HIGH Magnesium [Mass/Vol]19.2 mg/dLNOUT HealthcareTriglyceride [Mass/Vol]96 mg/dLNINF - 150 mg/dLNOUT HealthcareALL MAGNESIUMon 16-83-1923Gynibbpzr [Mass/Vol]1.4 mg/dLLow1.8 - 2.4 mg/dLNOUT HealthcareALL THYROID STIM HORMONEon 60-28-1824GBQ Qn2.877 m[IU]/LNOMS HealthcareCCF CMP (CMP) (FOR REMOTE [facility] USE)on 04-03-2024 Albumin [Mass/Vol]3.6 g/dL3.4 - 5.0 g/dLNOUT HealthcareALBUMIN GLOBULIN RATIO1.1 NOMS HealthcareALP [Catalytic activity/Vol]88 U/L46 - 116 U/LNOMS HealthcareALT [Catalytic activity/Vol]25 U/L14 - 59 U/LNOMS HealthcareAnion gap [Moles/Vol] 13.6 mmol/LNOMS HealthcareAST [Catalytic activity/Vol]18 U/L15 - 37 U/LNOMS HealthcareBilirubin [Mass/Vol]0.3 mg/dL0.2 - 1.0 mg/dLNOMS HealthcareCalcium [Mass/Vol]9.3 mg/dL8.5 - 10.1 mg/dLNOMS HealthcareChloride [Moles/Vol]102 mmol/L 98 - 107 mmol/LNOMS HealthcareCO2 [Moles/Vol]25.5 mmol/L21.0 - 32.0 mmol/LNOMS HealthcareCreatinine [Mass/Vol]1.18 mg/dLHigh0.55 - 1.02 mg/dLNOUT Healthcare GFR/1.73 sq M.predicted CKD-EPI (S/P/Bld) [Vol rate/Area]57Rbu87 - PINFNOMS HealthcareGlobulin (S) [Mass/Vol]3.4 g/dLNOMS HealthcareGlucose [Mass/Vol]91 mg/dL74 - 106 mg/dLNOUT HealthcarePotassium [Moles/Vol]4.1 mmol/L3.5 - 5.1 mmol/LNOMS HealthcareProtein [Mass/Vol]7.0 g/dL6.4 - 8.2 g/dLNOUT Healthcare Sodium [Moles/Vol]137 mmol/L136 - 145 mmol/LNOMS HealthcareTBH EGFR-NON AF WQPCPJFE11Cpm89 - PINFNOMS HealthcareUrea nitrogen [Mass/Vol]16.0 mg/dL7.0 - 18.0 mg/dLNOUT HealthcareUrea nitrogen/Creatinine [Mass ratio]13.6 mg/mgNOMS HealthcareNo Panel Informationon 79-39-2328Bdrzcjacbcqojz and review of laboratory resultsAbnormalNOMS HealthcareCLINISYNCNOMS HealthcareUS Thyroid glandon 28-64-1961[place] [address] Ultrasound Report Signed Patient: TANJA CARRERO MR#: [id number] : 1965 Acct:[id number] Age/Sex: 58 / F ADM Date: 12/26/23 Loc: US Attending Dr: Minda Yeboah NP Ordering Physician: Minda Yeboah NP Date of Service: 12/26/23 Procedure(s): US thyroid Accession Number(s): [id number] cc: Minda Yeboah NP The [place] [address] Patient Name: TANJA CARRERO MRN: [id number] date: 1965 Sex: F Assigned Patient Location: US Current Patient Location: US Accession/Order Number: [id number] Exam Date: 12/26/2023 11:37 Report Date: 12/26/2023 [...] study as clinically indicated. Electronically authenticated by: LNAE DANIELLE Date: 12/26/2023 12:39 Dictated By: Lane Danielle M.D. Signed By: 12/26/23 1241 DD/ 1239 TD/TT: Freight Broker:TBHRadiology, Radiologist, - 12/26/2023 [place] [address] Ultrasound Report Signed Patient: TANJA CARRERO MR#: [id number] : 1965 Acct:[id number] Age/Sex: 58 / F ADM Date: 12/26/23 Loc: US Attending Dr: Minda Yeboah NP Ordering Physician: Minda Yeboah NP Date of Service: 12/26/23 Procedure(s): US thyroid Accession Number(s): [id number] cc: Minda Yeboah NP [place] [id number] Patient Name: TANJA CARRERO MRN: [id number] date: 1965 Sex: F Assigned Patient Location: US Current Patient Location: US Accession/Order Number: [id number] Exam Date: 12/26/2023 11:37 Report Date: 12/26/2023 [...] Signed By: 12/26/23 1241 DD/ 1239 TD/TT: Freight Broker: JONN ClaireRadiology Study observation (narrative)NOMS HealthcareUS Thyroid glandOrdered By: Radiologist Radiology on 10-82-8776XRWW Healthcare Work Phone: XR CERVICAL SPINE 5Von 84-90-0361[address] [address] XRay Report Signed Patient: TANJA CARRERO MR#: [id number] : 1965 Acct:[id number] Age/Sex: 58 / F ADM Date: 12/18/23 Loc: RAD Attending Dr: Non-Staff Physician Kenneth Ordering Physician: PhysicianNon-Staff Kenneth Date of Service: 12/18/23 Procedure(s): XR cervical spine 5V Accession Number(s): [id number] cc: Minda Yeboah NP; PhysicianNon-Staff Kenneth The [address] [address] Patient Name: TANJA CARRERO MRN: [id number] date: 1965 Sex: F Assigned Patient Location: [facility] Current Patient Location: LAB Accession/Order Number: [id number] Exam Date: 12/18/2023 15:30 Report Date: 12/19/2023 [...] minimal degenerative facet arthropathy. Electronically authenticated by: CHARLES URRUTIA Date: 12/19/2023 11:16 Dictated By: Charles Urrutia M.D. Signed By: 12/19/23 1119 DD/ 1116 TD/TT: Freight Broker:TBHRadiology, Radiologist, - 12/19/2023 The [place] [id number] XRay Report Signed Patient: TANJA CARRERO MR#: [id number] : 1965 Acct:[id number] Age/Sex: 58 / F ADM Date: 12/18/23 Loc: RAD Attending Dr: Non-Staff Physician Kenneth Ordering Physician: PhysicianNon-Staff Kenneth Date of Service: 12/18/23 Procedure(s): XR cervical spine 5V Accession Number(s): [id number] cc: Minda Yeboah FLOOR SANDER; Physician,Non-Staff Kenneth The [place] [id number] Patient Name: TANJA CARRERO MRN: [id number] date: 1965 Sex: F Assigned Patient Location: [facility] Current Patient Location: LAB Accession/Order Number: [id number] Exam Date: 12/18/2023 15:30 Report Date: 12/19/2023 [...] minimal degenerative facet arthropathy. Electronically authenticated by: CHARLES URRUTIA Date: 12/19/2023 11:16 Dictated By: Charles Urrutia M.D. Signed By: 12/19/23 1119 DD/ 1116 TD/TT: Freight Broker: JONN HealthcareRadiology Study observation (narrative)NOMS HealthcareXR CERVICAL SPINE 5VOrdered By: Radiologist Radiology on 77-43-8957ZTLF Healthcare Work Phone: mm TOMOSYNTHESIS SCREENING BIon 06-49-5383I[place] [id number] Mammography Report Signed Patient: TANJA CARRERO MR#: [id number] : 1965 Acct:[id number] Age/Sex: 57 / F ADM Date: 08/17/23 Loc: INF Attending Dr: Minda Yeboah NP Ordering Physician: Minda Yeboah NP Results: Date of Service: 08/17/23 Follow Up: Procedure(s): MM tomosynthesis screening BI Accession Number(s): [id number] cc: Minda Yeboah NP Patient Name: TANJA CARRERO MR#: [id number] : 1965 Exam Date: 08/17/2023 Ordering Doctor: CHERYL Yeboah CNP RADIOLOGY REPORT PROCEDURE: MM TOMOSYNTHESIS SCREENING BI COMPARISON: MG MAMM CLARBIEL DIAG W CAD DIG, 01/15/2016. INDICATIONS: Screening Calculator Name NCI Breast Cancer Risk Assessment Tool 5 Year Breast Cancer Risk 1.00% Lifetime Breast Cancer Risk 6.70% Personal Breast Cancer No Personal Ovarian Cancer No Treatments None Family Cancers Mother with uterine cancer at age 20. LOCATION: [facility] BREAST COMPOSITION: Heterogeneously dense,which may [...] PALPABLE LUMP SHOULD BE BIOPSIED. Dictated by: Natacha Blakely MD on 08/17/2023 at 15:38 Approved by: Natacha Blakely MD on 08/17/2023 at 15:41 Dictated By: Natacha Blakely M.D. Signed By: 08/17/23 1542 DD/ 1541 TD/TT: Freight Broker:TBHRadiology, Radiologist, - 08/17/2023 The [place] [id number] Mammography Report Signed Patient: TANJA CARRERO MR#: [id number] : 1965 Acct:[id number] Age/Sex: 57 / F ADM Date: 08/17/23 Loc: INF Attending Dr: Minda Yeboah NP Ordering Physician: Minda Yeboah NP Results: Date of Service: 08/17/23 Follow Up: Procedure(s): MM tomosynthesis screening BI Accession Number(s): [id number] cc: Minda Yeboah NP Patient Name: TANJA CARRERO MR#: [id number] : 1965 Exam Date: 08/17/2023 Ordering Doctor: [...] uterine cancer at age 22. LOCATION: [facility] BREAST COMPOSITION: Heterogeneously dense,which may [...] PALPABLE LUMP SHOULD BE BIOPSIED. Dictated by: Natacha Blakely MD on 08/17/2023 at 15:38 Approved by: Natacha Blakely MD on 08/17/2023 at 15:41 Dictated By: Natacha Blakely M.D. Signed By: 08/17/23 1542 DD/ 1541 TD/TT: Freight Broker: JONN HealthcareRadiology Study observation (narrative)[facility]OM [facility] TOMOSYNTHESIS SCREENING BIOrdered By: Radiologist Radiology on 31-52-9250IZWF Healthcare Work Phone: aNA by IFAon 04-30-9815Fthdfnpxkuy Antibodies, IFA PositiveAbSelect Medical TriHealth Rehabilitation HospitalComment on above:Result Comment: Negative <1:80 Borderline 1:80 Positive >1:80Performed By: #### ANAIFA ####[facility] [address] [place], [place] [address]Dr. Emilianaphoenix JumaANTISTREPTOLYSIN O AB (ASO)on 89-72-6670Hrxkuemjfayxjhkc O Ab<20.9Zxagng3.0-200.0The [facility] Medical CenterComment on above:Performed By: #### ASOAB ####[facility] [address] [place], [place] [address]Dr. Emilianaphoenix JumaRHEUMATOID FACTORon 52-54-1436BX Latex Turbid.16.7 IU/mLCritically high<14.0The [facility] Medical CenterComment on above: Performed By: #### RF ####[facility] [address] [place], [place] [address]Dr. Flaquita DennisonCBC AUTO DIFFon 20-47-2856NQLU #0.0 103/ulNormal0.0-0.1The [facility] Medical CenterComment on above:Performed By: #### CBC ####[facility] [address] [place], [place] [address]Dr. Flaquita ChangBasophils/100 WBC (Bld)0.3 %Normal0.2-2.0The [facility] Medical CenterComment on above:Performed By: #### CBC ####[facility] [address] [place], [place] [address]Dr.Flaquita ChangEO #0.1 103/ulNormal0.0-0.7The [facility] Medical CenterComment on above:Performed By: #### CBC ####[facility] [address] [place], [place] [address]Dr.Flaquita ChangEosinophils/100 WBC (Bld)1.4 %Normal0.9-7.0The [facility] Medical CenterComment on above:Performed By: #### CBC ####[facility] [address] [place], [place] [address]Dr.Flaquita ChangErythrocyte distribution width (RBC) [Ratio]14.4 %Normal 11.0-15.0The [facility] Medical CenterComment on above:Performed By: #### CBC ####[facility] [address] [place], [place] [address]Dr. Flaquita DennisonHematocrit (Bld) [Volume fraction]35.3 %Critically low36.0-48.0[facility] CenterComment on above:Performed By: #### CBC ####[facility] [address] [place] [address]Dr.Flaquita DennisonHemoglobin (Bld) [Mass/Vol]11.5 g/dLCritically low12.0-16.0[facility] HospitalComment on above:Performed By: #### CBC ####[facility] [address] [place] [address]Dr.Emilianalan ChangIG #0.02 10e3/ulNormal0.00-0.03[facility] CenterComment on above:Performed By: #### CBC ####[facility] [address] [place], [place] [address]Dr.Flaquita ChangIG %0.3 %Normal 0.0-0.5[facility] CenterComment on above:Performed By: #### CBC ####[facility] [address] [place], [place] [address]Dr.Flaquita ChangLYMPH #2.0 103/ulNormal1.2-3.8[facility] CenterComment on above:Performed By: #### CBC ####[facility] [address] [place], [place] [address]Dr.Flaquita DennisonLymphocytes/100 WBC (Bld)28.3 %Pbffyq28.5-60.0[facility] CenterComment on above:Performed By: #### CBC ####[facility] [address] [place], [place] [address]Dr.Flaquita DennisonMANUAL DIFF REQ NONormalThe [facility] CenterComment on above:Performed By: #### CBC ####[facility] [address] [place], [place] [address]Dr. Flaquita DennisonMCH (RBC) [Entitic mass]29.9 twTsmbbx16.7-34.0[facility] Comment on above:Performed By: #### CBC ####[facility] [address] [place], [place] [address]Dr.Flaquita DennisonMCHC (RBC) [Mass/Vol]32.6 g/dL Klzlyi54.9-35.2[facility] CenterComment on above:Performed By: #### CBC ####[facility] Mqzceimwtf[address] [place], [place] [address]Dr. Flaquita DennisonMCV (RBC) [Entitic vol]91.7 cDJzxjem04.0-99.0The [facility] Comment on above:Performed By: #### CBC ####[facility] Omzwiuoimt0[address] [place], [place] [address]Dr.Flaquita DennisonMONO #0.3 103/ulNormal0.3-0.8 The [facility] CenterComment on above:Performed By: #### CBC ####[facility] Ktzdyejpvi[address] [place], [place] [address]Dr.Flaquita Dennison Monocytes/100 WBC (Bld)4.6 %Normal1.7-12.0The [facility] CenterComment on above: Performed By: #### CBC ####[facility] Uivxhnmbtt76[address] [place], [place] [address]Dr.Flaquita DennisonNEUT #4.7 103/ulNormal1.4-6.5The [facility] CenterComment on above:Performed By: #### CBC ####[facility] Hdtrtsqvwa95[address] [place], [place] [address]Dr.Flaquita DennsionNeutrophils/100 WBC (Bld)65.1 %Oquwxi16.0-75.0The [facility] CenterComment on above:Performed By: #### CBC ####[facility] Kyttsxxlnc[address] [place], [place] [address]Dr.Flaquita DennisonPlatelet mean volume (Bld) [Entitic vol]9.1 fLCritically low 9.5-13.5The [facility] CenterComment on above:Performed By: #### CBC ####[facility] Ruqtmdlcvh7[address] [place], [place] [address]Dr. Emilianalan MfiljANN887 103/muWguobp079-204Fiu [facility] CenterComment on above: Performed By: #### CBC ####[facility] [address] [place] [address]Dr.Flaquita JumaRBC3.85 106/ulCritically low4.20-5.40The [facility] Centerment on above:Performed By: #### CBC ####[facility] [address]mzrj[address] [place] [address]Dr.Flaquita DennisonWBC7.2 103/ul Normal4.0-11.0The [facility] CenterComment on above:Performed By: #### CBC ####[facility] [address]qkblb[address] [place] [address]Dr. Flaquita DennisonCPKon 19-13-6982ON [Catalytic activity/Vol]40 U/MSjtedx99-520Iap [facility] on above:Performed By: #### MARCELINO, MG, URIC, CRP, CK, TSH, CMP ####[facility] Yrhxmsfhzn17[address] [place], [place] [address]Dr. Flaquita DennisonCRPon 64-81-9990TDL5.4 mg/dLNormal<=1.0The [facility] Comment on above:Performed By: #### MARCELINO, MG, URIC, CRP, CK, TSH, CMP #### [facility] [address] [place] [address] Dr. Flaquita Tolentino T4on 70-05-5773Nfvw T4 [Mass/Vol]0.67 ng/dLCritically low 0.76-1.46The [facility] Centerment on above:Performed By: #### FT4 #### [facility] [address] [place] [address] Dr. Flaquita DennisonMAGNESIUMon 53-83-9684Pqbbtnqjb [Mass/Vol]1.7 mg/dLCritically low 1.8-2.4The [facility] on above:Performed By: #### MARCELINO, MG, URIC, CRP, CK, TSH, CMP ####[facility] Pvvooeszep[address] [place], [place] [address]Dr. Flaquita DennisonMYOGLOBINon 20-82-9492CGU66 ng/mLNormal9-82The Brock HospitalComment on above:Performed By: #### MARCELINO, MG, URIC, CRP, CK, TSH, CMP ####[facility] [address]zpgexxy[address] [place] [address]Dr. Flaquita DennisonPROF 14(COMP METB)on 94-66-1851Ynjjbdw [Mass/Vol]3.7 g/dL Normal3.4-5.0The [facility] CenterComment on above:Performed By: #### MARCELINO, MG, URIC, CRP, CK, TSH, CMP #### [facility] [address] [address] [address] Flaquita DennisonAlbumin/Globulin [Mass ratio]0.9 {ratio}NormalThe [facility] CenterComment on above:Performed By: #### MARCELINO, MG, URIC, CRP, CK, TSH, CMP #### [facility] [address] [place] [address] Dr. Flaquita Rosenberg [Catalytic activity/Vol]130 U/LCritically xisn77-788Vmx [facility] Centerment on above:Performed By: #### MARCELINO, MG, URIC, CRP, CK, TSH, CMP #### [facility] [address] [address] [address] Flaquita iGordano [Catalytic activity/Vol]24 U/AXenhmo05-38Ofk [facility] Centerment on above:Performed By: #### MARCELINO, MG, URIC, CRP, CK, TSH, CMP #### [facility] [address] [address] [address] Flaquita Ramírez gap [Moles/Vol]13.1 mmol/LNormalThe [facility] Comment on above:Performed By: #### MARCELINO, MG, URIC, CRP, CK, TSH, CMP #### [facility] [address] [address] [address] Flaquita Ramirez [Catalytic activity/Vol]19 U/BKgrczd05-33Qqv [facility] Centerment on above:Performed By: #### MARCELINO, MG, URIC, CRP, CK, TSH, CMP #### [facility] [address] [place] [address] Dr. Yilan ChangBilirubin [Mass/Vol]0.2 mg/dLNormal0.2-1.0The [facility] Comment on above:Performed By: #### MARCELINO, MG, URIC, CRP, CK, TSH, CMP #### [facility] [address] [place] [address] Dr. Flaquita DennisonCalcium [Mass/Vol]9.2 mg/dLNormal8.5-10.1The [facility] Comment on above:Performed By: #### MARCELINO, MG, URIC, CRP, CK, TSH, CMP #### [facility] [address] [place] [address] Dr. Flaquita DennisonChloride [Moles/Vol]108 mmol/LCritically pjut64-176Mav [facility] CenterComment on above:Performed By: #### MARCELINO, MG, URIC, CRP, CK, TSH, CMP #### [facility] [address] [place] [address] Dr. Flaquita DennisonCO2 [Moles/Vol]23.5 mmol/MBodvpz83.0-32.0The [facility] Comment on above:Performed By: #### MARCELINO, MG, URIC, CRP, CK, TSH, CMP #### [facility] [address] [place] [address] Dr. Flaquita DennisonCreatinine [Mass/Vol]1.05 mg/dLCritically high0.55-1.02[facility] Gal[facility] HospitalComment on above:Performed By: #### MARCELINO, MG, URIC, CRP, CK, TSH, CMP #### [facility] [address] [place] [address] Dr. Flaquita NgGFR-AF ECUADOREAN>60Normal>=60The [facility] CenterComment on above:Performed By: #### MARCELINO, MG, URIC, CRP, CK, TSH, CMP #### [facility] [address] [place] [address] Dr. Flaquita NgGFR-NON AF MBEQASYU41 mL/min/1.54w5Tlatkobvia low>=60The [facility] CenterComment on above:Performed By: #### MARCELINO, MG, URIC, CRP, CK, TSH, CMP #### [facility] [address] [place] [address] Dr. Flaquita DennisonGlobulin (S) [Mass/Vol]4.0 g/dLNormBellevue HospitalComment on above:Performed By: #### MARCELINO, MG, URIC, CRP, CK, TSH, CMP #### [facility] [address] [place] [address] Dr. Flaquita DennisonGlucose [Mass/Vol]96 mg/rIMvawdz70-901Xoj [facility] Comment on above:Performed By: #### MARCELINO, MG, URIC, CRP, CK, TSH, CMP #### [facility] [address] [place] [address] Dr. Flaquita DennisonPotassium [Moles/Vol]3.8 mmol/LNormal3.5-5.1The [facility] Comment on above:Performed By: #### MARCELINO, MG, URIC, CRP, CK, TSH, CMP #### [facility] [address] [place] [address] Dr. Flaquita DennisonProtein [Mass/Vol]7.7 g/dLNormal6.4-8.2The [facility] Comment on above:Performed By: #### MARCELINO, MG, URIC, CRP, CK, TSH, CMP #### [facility] [address] [place] [address] Dr. Flaquita DennisonSodium [Moles/Vol]141 mmol/KZzozag314-671RzyAvita Health System Gal[facility] Hospital Comment on above:Performed By: #### MARCELINO, MG, URIC, CRP, CK, TSH, CMP #### [facility] [address] [place] [address] Dr. Flaquita DennisonUrea nitrogen [Mass/Vol]18.0 mg/dLNormal7.0-18.0[facility] Gal[facility] HospitalComment on above:Performed By: #### MARCELINO, MG, URIC, CRP, CK, TSH, CMP #### [facility] [address] [place] [address] Dr. Flaquita DennisonUrea nitrogen/Creatinine [Mass ratio]17.1 mg/mgNoLicking Memorial HospitalComment on above:Performed By: #### MARCELINO, MG, URIC, CRP, CK, TSH, CMP #### [facility] [address] [address] [address] Flaquita Powell RATE WESTERGRENon 43-03-2153HAS RATE37 mm/hrCritically high <=30The [facility] on above:Performed By: #### SEDR ####[facility] [address]zaxy[address] [place] [address]Dr. Flaquita DennisonTSHon 64-04-4843BID0.258 uIU/mLNormal0.358-3.740The [facility] on above: Performed By: #### MARCELINO, MG, URIC, CRP, CK, TSH, CMP #### [facility] [address] [place] [address] Dr. Flaquita DennisonURIC ACID SERUMon 44-22-5665Baxyv [Mass/Vol]3.6 mg/dLNormal 2.6-6.0The [facility] on above:Performed By: #### MARCELINO, MG, URIC, CRP, CK, TSH, CMP #### [facility] [address] [place] [address] Dr. Flaquita Bowen AUTO DIFFon 25-09-5550GDWX #0.0 103/ulNormal0.0-0.1The [facility] on above:Performed By: #### CBC ####[facility] Qwzoqermbn[address] [place], [place] [address]Dr.Flaquita DennisonBasophils/100 WBC (Bld)0.2 %Normal0.2-2.0The [facility] on above:Performed By: #### CBC ####[facility] [address]bj[address] [place] [address]DrRossy ChangEO #0.2 103/ulNormal0.0-0.7The [facility] on above:Performed By: #### CBC ####[facility] Rhiycdwsfi99[address] [place], [place] [address]Dr.Flaquita ChangEosinophils/100 WBC (Bld)1.8 %Normal 0.9-7.0The [facility] CenterComment on above:Performed By: #### CBC ####[facility] Grrodzcfvc[address] [place], [place] [address]Dr.Flaquita Dennison Erythrocyte distribution width (RBC) [Ratio]14.5 %Kkztdk79.0-15.0The [facility] CenterComment on above:Performed By: #### CBC ####[facility] Ksiklefwcm[address] [place], [place] [address]Dr.Flaquita DennisonHematocrit (Bld) [Volume fraction]36.6 %Snnxnb63.0-48.0The [facility] CenterComment on above:Performed By: #### CBC ####[facility] Hjxpuigdur[address] [place], [place] [address]Dr.Flaquita DennisonHemoglobin (Bld) [Mass/Vol]12.1 g/dL Dohrrh29.0-16.0The [facility] CenterComment on above:Performed By: #### CBC ####[facility] Kgosfnsgdw[address] [place], [place] [address]Dr. Flaquita DennisonIG #0.04 10e3/ulCritically high0.00-0.03The [facility] CenterComment on above:Performed By: #### CBC ####[facility] Kmxatmclad[address] [place], [place] [address]Dr.Flaquita DennisonIG %0.5 %Normal0.0-0.5The [facility] CenterComment on above:Performed By: #### CBC ####[facility] Cmwrlungvn[address] [place], [place] [address]Dr.Flaquita DennisonLYMPH #2.8 103/ulNormal1.2-3.8The [facility] CenterComment on above:Performed By: #### CBC ####[facility] Soxxxjcuzu15[address] [place], [place] [address]Dr. Flaquita DennisonLymphocytes/100 WBC (Bld)34.5 %Lrmjcu90.5-60.0The [facility] Comment on above:Performed By: #### CBC ####[facility] Ebqybpwovu13[address] [place], [place] [address]Dr.Yilan ChangMANUAL DIFF REQNONormalThe [facility] CenterComment on above:Performed By: #### CBC ####[facility] [address]ncvpyqop[address] [place] [address]Dr.Flaquita DennisonH (RBC) [Entitic mass]30.6 lsQodmzd70.7-34.0The [facility] HospitalComment on above: Performed By: #### CBC ####[facility] Ktkwyryvoz0827[address] [place], [place] [address]Dr.Flaquita DennisonHC (RBC) [Mass/Vol]33.1 g/dLNormal 29.9-35.2The [facility] HospitalComment on above:Performed By: #### CBC ####[facility] Ifdzngstoh032[address] [place], [place] [address]Dr. Flaquita DennisonV (RBC) [Entitic vol]92.4 pSBxwxpv89.0-99.0The [facility] Comment on above:Performed By: #### CBC ####[facility] Bglxpquncb[address] [place], [place] [address]Dr.Flaquita DennisonMONO #0.3 103/ulNormal0.3-0.8 The [facility] CenterComment on above:Performed By: #### CBC ####[facility] Qofrzpckmc54[address] [place], [place] [address]Dr.Flaquita Dennison Monocytes/100 WBC (Bld)4.0 %Normal1.7-12.0The [facility] CenterComment on above: Performed By: #### CBC ####[facility] Hkmbompabu15[address] [place], [place] [address]Dr.Flaquita DennisonNEUT #4.8 103/ulNormal1.4-6.5The [facility] CenterComment on above:Performed By: #### CBC ####[facility] Izznmxnyhd7[address] [place], [place] [address]Dr.Flaquita DennisonNeutrophils/100 WBC (Bld)59.0 %Smgxos48.0-75.0The [facility] CenterComment on above:Performed By: #### CBC ####[facility] F[address] [place], [place] [address]Dr.Flaquita JumaPlatelet mean volume (Bld) [Entitic vol]9.0 fLCritically low 9.5-13.5The [facility] CenterComment on above:Performed By: #### CBC ####[facility] [address]vosqt[address] [place] [address]Dr. Flaquita FjlnxZSM555 103/wnCrbdnw518-180Tpr [facility] CenterComment on above: Performed By: #### CBC ####[facility] [address]qbqhvnffm[address] [place] [address]Dr.Flaquita JumaRBC3.96 106/ulCritically low4.20-5.40The [facility] CenterComment on above:Performed By: #### CBC ####[facility] Ttuiuwzhtw[address] [place], [place] [address]Dr.Flaquita JumaWBC8.2 103/ul Normal4.0-11.0The [facility] CenterComment on above:Performed By: #### CBC ####[facility] Pjmusryvwc[address] [place], [place] [address]Dr. Flaquita ChangFREE T4on 09-07-5918Tcso T4 [Mass/Vol]0.71 ng/dLCritically low 0.76-1.46The [facility] on above:Performed By: #### FT4 #### [facility] [address] [address] [address] Flaquita DennisonLIPID PROFILEon 19-85-2548YIXT-HDL RATIO NORMSEE [facility] Private HospitalComment on above:Result Comment: 3.3 - 4.4 LOW RISK 4.4 - 7.1 AVERAGE RISK 7.1 - 11.0 MODERATE RISK >11.0 HIGH RISKPerformed By: #### LIPID, TSH, CMP ####[facility] Srjkoqpvzd[address] [place], [place] [address]Dr. Flaquita JumaCholesterol [Mass/Vol]226 mg/dLCritically high<=200The [facility] CenterComment on above:Performed By: #### LIPID, TSH, CMP ####[facility] Zdrqjsfmta[address] StreetBellevue, [place] [address]Qf. Yilan ChangCholesterol in HDL [Mass/Vol]55 mg/iAQkobaa61-35FyqAvita Health System [facility] Hospital Comment on above:Performed By: #### LIPID, TSH, CMP ####[facility] [address] [place] [id number]. Yilan ChangCholesterol in LDL [Mass/Vol]133.8 mg/dLACMC Healthcare SystemComment on above:Performed By: #### LIPID, TSH, CMP ####[facility] [address] [place] [address]Dr. Yilan ChangCholesterol.total/Cholesterol in HDL [Mass ratio]4.1 {ratio}NormalThe [facility] CenterComment on above:Performed By: #### LIPID, TSH, CMP ####[facility] [address] [place] [id number]. Yilan ChangHDL NORMAL> or = 60 mg/dl - LOW CARDIOVASCULAR RISK <40 mg/dl - HIGH CARDIOVASCULAR RISKNoLicking Memorial HospitalComment on above:Performed By: #### LIPID, TSH, CMP ####[facility] [address]ibx[address] [id number]. Yilan ChangLDL CALC NORMALSEE BELOWACMC Healthcare SystemComment on above:Result Comment: <100 mg/dl OPTIMAL 100 - 129 mg/dl NEAR OR ABOVE OPTIMAL 130 - 159 mg/dl BORDERLINE HIGH 160 - 189 mg/dl HIGH >190 mg/dl VERY HIGHPerformed By: #### LIPID, TSH, CMP ####[facility] [address]rg[address] [place] [id number]. Yilan ChangTriglyceride [Mass/Vol]186 mg/dLCritically high<=150[facility] HospitalCombeaumont hospital on above:Performed By: #### LIPID, TSH, CMP ####[facility] [address]qifxh[address] [place] [address]Dr. Yilan ChangVLDL CALC37.2 mg/dLNoLicking Memorial HospitalComment on above: Performed By: #### LIPID, TSH, CMP ####[facility] [address]penem[address] [place] [address]Dr. Yilan ChangPROF 14(COMP METB)on 11-23-2022 Albumin [Mass/Vol]3.9 g/dLNormal3.4-5.0The [facility] CenterComment on above: Performed By: #### LIPID, TSH, CMP ####[facility] [address]ajkhq[address] [place] [address]Dr. Yilan ChangAlbumin/Globulin [Mass ratio]1.0 {ratio}NormalThe [facility] CenterComment on above:Performed By: #### LIPID, TSH, CMP ####[facility] [address]weymcuus[address] [place] [address]Dr. Yilan ChangALP [Catalytic activity/Vol]124 U/LCritically jqbn84-730Ayu [facility] Centerment on above:Performed By: #### LIPID, TSH, CMP ####[facility] Kiavepsmwr[address] [place], [place] [address]Dr. Yilan ChangALT [Catalytic activity/Vol]26 U/AOzixsh36-94Pjg [facility] Comment on above:Performed By: #### LIPID, TSH, CMP ####[facility] Pzglsyojme[address] [place], [place] [address]Dr. Yilan ChangAnion gap [Moles/Vol]14.1 mmol/LNormalThe [facility] CenterComment on above:Performed By: #### LIPID, TSH, CMP ####[facility] [address]omxjeh[address] [place] [address]Dr. Yilan ChangAST [Catalytic activity/Vol]22 U/L Ihxcfi82-61Kro [facility] CenterComment on above:Performed By: #### LIPID, TSH, CMP ####[facility] [address]wlnzzit[address] [place] [address]Dr. Yilan ChangBilirubin [Mass/Vol]0.2 mg/dLNormal0.2-1.0The [facility] Comment on above:Performed By: #### LIPID, TSH, CMP ####[facility] [address]bbeltpqfp[address] [place] [address]Dr. Yilan ChangCalcium [Mass/Vol]9.4 mg/dLNormal8.5-10.1[facility] on above:Performed By: #### LIPID, TSH, CMP ####[facility] Fspklazjyw[address] [place], [place] [address]Dr. Yilan ChangChloride [Moles/Vol]104 mmol/LNormal 98-107The [facility] on above:Performed By: #### LIPID, TSH, CMP ####[facility] Nxtzawbbls[address] [place], [place] [address]Dr. Yilan ChangCO2 [Moles/Vol]24.8 mmol/UWnuekn31.0-32.0The [facility] CenterCombeaumont hospital on above:Performed By: #### LIPID, TSH, CMP ####[facility] Hnpiwzpvxr[address] [place], [place] [address]Dr. Yilan ChangCreatinine [Mass/Vol]1.03 mg/dLCritically high0.55-1.02[facility] on above:Performed By: #### LIPID, TSH, CMP ####[facility] C[address]vkhvhgwl18[address] [place], [place] [address]Dr. Yilan ChangEGFR-AF ECUADOREAN>60Normal>=60 The [facility] on above:Performed By: #### LIPID, TSH, CMP ####[facility] Qvuxpbtclz17[address] [place], [place] [address]Dr. Yilan ChangEGFR-NON AF XNTTHRKE85 mL/min/1.45a8Xgifvljcrb low>=60[facility] on above:Performed By: #### LIPID, TSH, CMP ####[facility] Rswhqddrxt80[address] [place], [place] [address]Dr. Yilan Dennison Globulin (S) [Mass/Vol]4.1 g/dLNormalThBarberton Citizens Hospital on above: Performed By: #### LIPID, TSH, CMP ####[facility] Culxcyqpll[address] [place], [place] [address]Dr. Yilan ChangGlucose [Mass/Vol]93 mg/dLNormal 74-106[facility] on above:Performed By: #### LIPID, TSH, CMP ####[facility] [address]qctkarxp[address] [place] [address]Dr. Yilan ChangPotassium [Moles/Vol]3.9 mmol/LNormal3.5-5.1The [facility] Comment on above:Performed By: #### LIPID, TSH, CMP ####[facility] Czvsrhpesg[address] [place], [place] [address]Dr. Yilan ChangProtein [Mass/Vol]8.0 g/dLNormal6.4-8.2The [facility] CenterComment on above:Performed By: #### LIPID, TSH, CMP ####[facility] Dozantxeuo75[address] [place], [place] [address]Dr. Yilan ChangSodium [Moles/Vol]139 mmol/LNormal 136-145The [facility] CenterComment on above:Performed By: #### LIPID, TSH, CMP ####[facility] Ief[address]umtepf[address] [place], [place] [address]Dr. Yilan ChangUrea nitrogen [Mass/Vol]7.0 mg/dLNormal7.0-18.0The [facility] Comment on above:Performed By: #### LIPID, TSH, CMP ####[facility] Cnqszsoonn[address] [place], [place] [address]Dr. Yilan ChangUrea nitrogen/Creatinine [Mass ratio]6.8 mg/mgNormalThe [facility] CenterComment on above:Performed By: #### LIPID, TSH, CMP ####[facility] Avmevstwry[address] [place], [place] [address]Dr. Yiphoenix ChangTSHon 71-42-0319PIR2.497 uIU/mLNormal0.358-3.740The [facility] CenterComment on above:Performed By: #### LIPID, TSH, CMP ####[facility] Duucbtvkbz[address] [place], [place] [address]Dr. Flaquita ChangPatient Instructionson [id number] Authentication Interface Message TextDental extraction Instructions Biting on Gauze to Control [...] done to speak with an oral surgeon. [facility] [phone]. HELPING THE HEALING PROCESS AND STOPPING THE [...] juices such as c (more content not included)...NormalThe MetroHealth SystemMRI ANKLE LT WO CONon 53-91-7914SMT ANKLE LT WO CONHISTORY: Left ankle pain since a fall in May 2022. Inability to bear weight on the ankle due to pain. MRI ANKLE LT WO CON: 10/20/2022 9:57 AM EDT COMPARISON: CT scan of the left foot and ankle obtained at [facility] 05/24/2022 and Radiographs left foot and ankle [...] ligament complex is not included in the qloal-xg-dirn and cannot be evaluated on this MRI [...] Electronically authenticated by: TABBY AGUILERA Date: 2022-10-23 09:13[facility] Healthcare SystemXR DEXA BONE DENSITYon [id number] DEXA BONE DENSITY EXAMINATION: XR DEXA BONE [...] Electronically authenticated by: CHARLES URRUTIA Date: 2022-10-20 15:40[facility] SystemProgress Noteson [id number] Authentication Interface Message Text Attestation signed by Krystian Munoz DMD, MD [...] the resident's note. Krystian Munoz DMD, MD OMFS PATIENT VISIT CHIEF COMPLAINT: Pain and [place] HISTORY OF PRESENT ILLNESS: 56 year old female with PMH significant for H/O seizures (~once a year; most recent was 06/21), hypothyroidism, and tobacco use presents to [facility] clinic as a referral from an outside [...] Ankle fracture, bimalleolar, closed, left, initial encounter [S82.292A] COVID-19 virus infection [U07.1] Disorientation [R41.0] Disturbance [...] 19, 34 and with local anesthesia Cristobal Hargrove, ElpidioFormerly [facility], Vidant North HospitalXtelligent Media SystemTranscription Authentication Interface Message TextNoFormerly [facility], [facility]1EQTranscription Authentication Interface Message TextPatient was identified by name and date of . ELAINA TALAMANTES, RNNormalThe [facility] SystemANION GAPon 63-34-2079Nzipn gap [Moles/Vol]11.0 mmol/LNormal8.0-16.0The [facility] Center of Southeast TexasComment on above: Result Comment: ANION GAP = Sodium -(Chloride + CO2)Performed By: #### TIBC, IRNP, EGFR1, ANION, BMP #### [facility] [address] [place] [address]bfrh Gapon 87-28-5313Hgcvn gap [Moles/Vol]11.0 mmol/L8.0 - 16.0 meq/LBON AULTMAN ORRVILLE HOSPITALComment on above:ANION GAP = Sodium -(Chloride + CO2) Performed at [facility] [address] [place] [id number] BASIC METABOL PANELon 22-12-8979Dwwojjd [Mass/Vol]10.0 mg/dLNormal8.5-10.5SCuero Regional HospitalComment on above:Performed By: #### TIBC, IRNP, EGFR1, ANION, BMP #### [facility] [address] [place] [address]Yhrnqxfh [Moles/Vol]104 mmol/FTidygh52-989TcsjbThe Medical Center of Southeast TexasComment on above:Performed By: #### TIBC, IRNP, EGFR1, ANION, BMP #### [facility] [address] [place] [id number] [Moles/Vol]24 mmol/POqkpfd21-21KvjigThe [facility] Center [facility] [place] Comment on above:Performed By: #### TIBC, IRNP, EGFR1, ANION, BMP #### [facility] [address] [place] [address] 25[address]Ujvghekhxv [Mass/Vol]1.0 mg/dLNormal0.4-1.2SCuero Regional HospitalComment on above:Performed By: #### TIBC, IRNP, EGFR1, ANION, BMP #### [facility] [address] [place] [address] 97357Ylqggvf [Mass/Vol]108 mg/tWKdxmiv93-689Lgeyr [facility] Comment on above:Performed By: #### TIBC, IRNP, EGFR1, ANION, BMP #### [facility] [address] [place] [address] 70872Rblesjhin [Moles/Vol]4.2 mmol/LNormal3.5-5.2SCuero Regional HospitalComment on above:Performed By: #### TIBC, IRNP, EGFR1, ANION, BMP #### [facility] [address] [place] [address] 46135Nxpvml [Moles/Vol]139 mmol/VHplfcg600-099EsouyThe Medical Center of Southeast TexasComment on above:Performed By: #### TIBC, IRNP, EGFR1, ANION, BMP #### [facility] [address] [place] [address] 82694Flkc nitrogen [Mass/Vol]11 mg/dLNormal7-22The Medical Center of Southeast TexasComment on above:Performed By: #### TIBC, IRNP, EGFR1, ANION, BMP #### [address] [address]Wxlbu Metabolic Panelon 88-57-3262Mgjedvc [Mass/Vol]10.0 mg/dL8.5 - 10.5 mg/dLBON SECOURS DAY[facility] OSTEOP[facility] HOSPITALY [facility] CLEVEL[facility]-FAIRHILLComment on above:Performed at [facility] [address] [place] [address] 41541Hxhgjhar [Moles/Vol]104 mmol/L98 - 111 meq/LBON [facility] HEALTHCO2 [Moles/Vol]24 mmol/L23 - 33 meq/LBON [facility]-FAIRHILLCreatinine [Mass/Vol]1 mg/dL0.4 - 1.2 mg/dLBON SEC[facility]-FAIRHILLGlucose [Mass/Vol]108 mg/dL70 - 108 mg/dLBON [facility]OS[facility]ITALY HEALTH Potassium [Moles/Vol]4.2 mmol/L3.5 - 5.2 meq/LBON [facility]LEVEL[facility]-FAIRHILLSodium [Moles/Vol]139 mmol/L135 - 145 meq/LBON [facility]ITALY HEALTHUrea nitrogen (BldV) [Mass/Vol]11 mg/dL7 - 22 mg/dLBON SECOU[facility] DAY[facility] HOSPITALY HEALTHGFR, ESTIMATEDon 02-26-8894NXK/1.73 sq M.predicted MDRD (S/P/Bld) [Vol rate/Area]mL/min/{1.73_m2} Normal>60The Medical Center of Southeast TexasComment on above:Result Comment: Pediatric calculator link https://www.kidney.org/professionals/kdoqi/gfr_calculatorped Effective May 02, [...] or following therapy that affects renal tubular secretion.Performed By: #### TIBC, IRNP, EGFR1, ANION, BMP #### [facility] [address] [place], [place] [address]Objygzyyve Filtration Rate, Estimatedon 40-60-0629AHR/1.73 sq M.predicted MDRD (S/P/Bld) [Vol rate/Area]- [facility]ALTH SYSTEMComment on above:Pediatric calculator link https://www.kidney.org/professionals/kdoqi/gfr_calculatorped Effective May 02, 2022 [...] that affects renal tubular secretion. Performed at [facility] [address] [place] [address] IRONon 28-84-2638Rgik [Mass/Vol]30 ug/oQQie33-067McbszThe Medical Center of Southeast [place] Comment on above:Performed By: #### TIBC, IRNP, EGFR1, ANION, BMP #### [facility] [address] [place], [place] [address]CDGI BINDING CAPACITYon 16-18-7953UFUG BINDING ZQCKHQUO585 ug/dL Puoamb268-588VrhhfThe Medical Center of Southeast TexasComment on above:Performed By: #### TIBC, IRNP, EGFR1, ANION, BMP #### [facility] [address] [place] [address] 59126Yselyj 36-48-4697Mxkunmqzmrnjzn and review of laboratory results AbnormalBON AULTMAN ORRVILLE HOSPITALIron [Mass/Vol]30 ug/dLLow50 - 170 ug/dLBON SECCOMMUNITY MEMORIAL HOSPITALComment on above:Performed at [facility] [address] [place] [address]Efnl Binding Capacityon 89-86-5121PEZS815 ug/dL171 - 450 ug/dLBON SECCOMMUNITY MEMORIAL HOSPITALComment on above:Performed at [facility] [address] [place] [address] 98[address]Fr Panel Informationon 85-81-9301GYY SECCOMMUNITY MEMORIAL HOSPITALCBCon 45-07-4739Xbqkxphumgq distribution width (RBC) [Ratio] 12.7 %11.5 - 14.5 %BON SECCOMMUNITY MEMORIAL HOSPITALErythrocyte distribution width (RBC) [Ratio]45.2 pWPkom62.0 - 45.0 fLRETREAT DOCTORS' HOSPITALHematocrit (Bld) [Volume fraction]32.6 %Low37.0 - 47.0 %BON AULT[facility] ORRVILLE HOSPITALHemoglobin (Bld) [Mass/Vol]10.7 g/dLLowBON [facility] HEALTHInterpretation and review of laboratory resultsAbnormalBON SECSELECT MEDICAL TRIHEALTH REHABILITATION HOSPITALH (RBC) [Entitic mass]32.0 pg26.0 - 33.0 pgBON SECSELECT MEDICAL TRIHEALTH REHABILITATION HOSPITALHC (RBC) [Mass/Vol]32.8 g/dLBON SECSELECT MEDICAL TRIHEALTH REHABILITATION HOSPITALV (RBC) [Entitic vol]97.6 fL81.0 - 99.0 fLBON SECCOMMUNITY MEMORIAL HOSPITALPlatelet mean volume (Bld) [Entitic vol]10.0 fL9.4 - 12.4 fLBON SECCOMMUNITY MEMORIAL HOSPITALComment on above:Performed at [facility] [address] [place] [address]Swmrrydwg (Bld) [#/Vol]278 10*3/uLBON [facility] HEALTHRBC (Bld) [#/Vol]3.34 10*6/uLLowBON [facility]ITAL HEALTHWBC (Bld) [#/Vol] 6.6 10*3/[facility] Memorial HospitalTOPIRAMATE (TOPAMAX) LEVELon 14-68-9786YGEYTSVRLJ (TOPAMAX) LEVEL6.1 ug/mLNormal5.0-20.0The [facility] Center of Southeast TexasCombeaumont hospital on above:Result Comment: INTERPRETIVE INFORMATION: Topiramate Therapeutic range: 5.0-20.0 ug/mL Toxic: Not well established Pharmacokinetics varies widely, particularly with co-medications, age, and/or compromised renal function. Adverse effects may include somnolence, fatigue, and dizziness. Performed By: [employer] [address] [place] [address] Steward/Stewardess Night: Heraclio Lester MD, PhDPerformed By: #### TOPI2 #### [address] [address]Zuoiyzjygv levelon 98-96-5969Llectwxacc Lvl6.1 ug/mL5.0 - 20.0 ug/mL [facility] on above:INTERPRETIVE INFORMATION: Topiramate Therapeutic range: 5.0-20.0 ug/mL Toxic: Not well established Pharmacokinetics varies widely, particularly with co-medications, age, and/or compromised renal function. Adverse effects may include somnolence, fatigue, and dizziness. Performed By: [employer] [address] [place] [address] Steward/Stewardess Night: Heraclio Lester MD, PhD RETREAT DOCTORS' HOSPITALANION GAPon 24-44-4871Fbcno gap [Moles/Vol]12.0 mmol/L Normal8.0-16.0The [facility] Center of Southeast TexasCombeaumont hospital on above:Result Comment: ANION GAP = Sodium -(Chloride + CO2)Performed By: #### CBCWD, EGFR1, ANION, CMPX #### [facility] [address] [place], [place] [address]Agpgg Gapon 90-70-7504Guvqg gap [Moles/Vol]16.0 mmol/L8.0 - 16.0 meq/LBON [facility] on above:ANION GAP = Sodium -(Chloride + CO2) Performed at [facility] [address] [place] [address] Anion gap [Moles/Vol]12.0 mmol/L8.0 - 16.0 meq/LBON [facility]RVILLE HOSPITALComment on above:ANION GAP = Sodium -(Chloride + CO2) Performed at [facility] [address] [place] [address] Basic Metabolic Panel w/ Reflex to MGon 98-71-8622Ducudbb [Mass/Vol]9.4 mg/dL8.5 - 10.5 mg/dLBON AULTMAN ORRVILLE HOSPITALComment on above:Performed at [facility] [address] [place] [address] 70001Udbwejjk [Moles/Vol]98 mmol/L98 - 111 meq/LBON [facility]ULT[facility] ORRVILLE HOSPITALCO2 [Moles/Vol]20 mmol/LLow23 - 33 meq/LBON [facility] HOSPITALCreatinine [Mass/Vol]1 mg/dL0.4 - 1.2 mg/dLBON AULTMAN ORRVILLE HOSPITALGlucose [Mass/Vol]101 mg/dL70 - 108 mg/dLB[facility] Interpretation and review of laboratory resultsAbnormalBON [facility] Potassium [Moles/Vol]3.9 mmol/L3.5 - 5.2 meq/LBON [facility]ULT[facility] ORRVILLE HOSPITALComment on above:Low level specimen hemolysis is present as indicated by the interference level index on the Katie analyzer. The reported K+ level may be falsely increased. If clinically warranted, recollection of the specimen is suggested. Sodium [Moles/Vol]134 mmol/LCfj876 - 145 meq/LBON [facility]ULT[facility] ORRVILLE HOSPITALUrea nitrogen (BldV) [Mass/Vol]15 mg/dL7 - 22 mg/dLBON AULTMAN ORRVILLE HOSPITALCBC WITH DIFFERENTIALon 90-93-3810ROE BASOPHILS0.0 thou/ks3Nankaw0.0-0.1SCuero Regional HospitalComment on above:Performed By: #### CBCWD, EGFR1, ANION, CMPX #### [facility] [address] [place] [address]CHT EOSINOPHILS0.1 thou/ql2Igknjz0.0-0.4SCuero Regional HospitalComment on above:Performed By: #### CBCWD, EGFR1, ANION, CMPX #### [facility] [address] [place] [address]FZX IMMATURE GRANS (IG)0.03 thou/ao0Fnloif7.00-0.07The Medical Center of Southeast TexasComment on above:Performed By: #### CBCWD, EGFR1, ANION, CMPX #### [address] [address]WIL LYMPHOCYTES1.4 thou/bl1Khmwux3.0-4.8The Medical Center of Southeast TexasComment on above:Performed By: #### CBCWD, EGFR1, ANION, CMPX #### [address] [address]SWD MONOCYTES0.5 thou/nk7Sbgahd4.4-1.3SCuero Regional Hospital Comment on above:Performed By: #### CBCWD, EGFR1, ANION, CMPX #### [address] [address]PVF NEUTROPHILS5.7 thou/jz5Wstykw9.8-7.7The Medical Center of Southeast TexasComment on above:Performed By: #### CBCWD, EGFR1, ANION, CMPX #### [address] [address]Lkegxrntj/100 WBC (Bld)0.3 %[facility] Comment on above:Performed By: #### CBCWD, EGFR1, ANION, CMPX #### [address] [address]Kclchlvoshy/100 WBC (Bld)0.9 %[facility] Comment on above:Performed By: #### CBCWD, EGFR1, ANION, CMPX #### [address] [address]Olvuihiqhaz distribution width (RBC) [Ratio]12.8 %Pmxtsl69.5-14.5 The Medical Center of Southeast TexasComment on above:Performed By: #### CBCWD, EGFR1, ANION, CMPX #### [address] [address]Wijzyywnvd (Bld) [Volume fraction]34.4 %Low37.0-47.0The Medical Center of Southeast TexasComment on above:Performed By: #### CBCWD, EGFR1, ANION, CMPX #### [facility] [address] [place] [address]Yrktmegwzm (Bld) [Mass/Vol]11.3 g/dLLow12.0-16.0The Medical Center of Southeast TexasComment on above:Performed By: #### CBCWD, EGFR1, ANION, CMPX #### [address] [address]DFITLQFI GRANS (IG)0.4 %[facility]roeComment on above:Performed By: #### CBCWD, EGFR1, ANION, CMPX #### [address] [address]Vwodeesumfc/100 WBC (Bld)17.8 %[facility] Comment on above:Performed By: #### CBCWD, EGFR1, ANION, CMPX #### [address] [address]UYJ (RBC) [Entitic mass]31.8 mxOplqrs79.0-33.0The Medical Center of Southeast TexasComment on above:Performed By: #### CBCWD, EGFR1, ANION, CMPX #### [place] [id number] (RBC) [Mass/Vol]32.8 g/zXXukswj68.2-35.5SCuero Regional HospitalComment on above:Performed By: #### CBCWD, EGFR1, ANION, CMPX #### [address] [address]QHK (RBC) [Entitic vol]96.9 oFFjqroc17.0-99.0The Medical Center of Southeast TexasComment on above:Performed By: #### CBCWD, EGFR1, ANION, CMPX #### [address] [address]Kzxetoqbm/100 WBC (Bld)7.0 %[facility] Comment on above:Performed By: #### CBCWD, EGFR1, ANION, CMPX #### [address] [address]Qvgwsdphuua/100 WBC (Bld)73.6 %NormalThe Medical Center of Southeast Texas Comment on above:Performed By: #### CBCWD, EGFR1, ANION, CMPX #### [address] [address]MBMG4 /100 wbcNormalSCuero Regional HospitalComment on above: Performed By: #### CBCWD, EGFR1, ANION, CMPX #### [address] [address]GTBOGJSH508 thou/oe4Tvhtuy161-833VbxinThe Medical Center of Southeast Texas Comment on above:Performed By: #### CBCWD, EGFR1, ANION, CMPX #### [address] [address]Teekdskj mean volume (Bld) [Entitic vol]9.7 fLNormal9.4-12.4SCuero Regional HospitalComment on above:Performed By: #### CBCWD, EGFR1, ANION, CMPX #### [address] [address]BJR1.55 mill/tb8Ntx9.20-5.40SCuero Regional HospitalComment on above:Performed By: #### CBCWD, EGFR1, ANION, CMPX #### [address] [address]IJC-JX63.6 uKSvka47.0-45.0The Medical Center of Southeast TexasComment on above:Performed By: #### CBCWD, EGFR1, ANION, CMPX #### [address] [address]EFX6.8 thou/jz8Waflie9.8-10.8The Medical Center of Southeast TexasComment on above:Performed By: #### CBCWD, EGFR1, ANION, CMPX #### [address] [address]SKW with Auto Differentialon 28-51-5672Jfvjlndbp (Bld) [#/Vol]0.0 10*3/uLBON SECOURS VETERANS HEALTH ADMINISTRATIONBasophils/100 WBC (Bld)0.3 %[facility] HEALTHEosinophils Absolute0.1B[facility] HEALTHEosinophils/100 WBC (Bld) 0.9 %[facility] HEALTHErythrocyte distribution width (RBC) [Ratio]12.8 % 11.5 - 14.5 %[facility] HEALTHErythrocyte distribution width (RBC) [Ratio]45.6 kFXgpl60.0 - 45.0 fLBON SECOURS MERCY HEALTHHematocrit (Bld) [Volume fraction]34.4 %Low37.0 - 47.0 %[facility] HEALTHHemoglobin (Bld) [Mass/Vol]11.3 g/dLLowBON [facility] HEALTHImmature Grans (Abs)0.03[facility] HEALTHImmature granulocytes/100 WBC (Bld)0.4 %[facility] HEALTHInterpretation and review of laboratory resultsAbnormalBON [facility] HEALTHLymphocytes Absolute1.4[facility] HEALTHLymphocytes/100 WBC (Bld) 17.8 %[facility] HEALTHMCH (RBC) [Entitic mass]31.8 pg26.0 - 33.0 pgBON SECOURS MERCY HEALTHHC (RBC) [Mass/Vol]32.8 g/dLBON [facility]RS MERCY HEALTHMCV (RBC) [Entitic vol]96.9 fL81.0 - 99.0 fLBON SECOURS MERCY HEALTHMonocytes Absolute0.5B[facility] HEALTHMonocytes/100 WBC (Bld)7 %[facility] HEALTHnRBC0/100 wbcBON SECOURS MERCY HEALTHComment on above:Performed at [facility] [address] [place], [place] [address]Sjrsgmjo mean volume (Bld) [Entitic vol]9.7 fL9.4 - 12.4 fLBON SECOURS MERCY HEALTHPlatelets (Bld) [#/Vol] 311 10*3/uLBON [facility] MERCY HEALTHRBC (Bld) [#/Vol]3.55 10*6/uLLowBON SECOURS MERCY HEALTHSegmented neutrophils/100 WBC (Bld)73.6 %[facility] Segs Absolute5.7[facility] HEALTHWBC (Bld) [#/Vol]7.8 10*3/uLBON AULTMAN ORRVILLE HOSPITALBON AULTMAN ORRVILLE HOSPITALCMPon 02-66-3034Scvkwmb [Mass/Vol]4.4 g/dL 3.5 - 5.2 g/dLBON AULTMAN ORRVILLE HOSPITALAlbumin/Globulin [Mass ratio]1.6 {ratio} 1.0 - 2.5BON AULTMAN ORRVILLE HOSPITALALP (Bld) [Catalytic activity/Vol]104 U/L35 - 104 U/LBON AULT[facility] ORRVILLE HOSPITALALT [Catalytic activity/Vol]13 U/L5 - 33 U/LBON AULT[facility] ORRVILLE HOSPITALAnion gap [Moles/Vol]15 mmol/L9 - 17 mmol/LBON AULT[facility] ORRVILLE HOSPITALAST [Catalytic activity/Vol]21 U/LNINF - 32 U/LB[facility] Bilirubin [Mass/Vol]0.2 mg/dLLow0.3 - 1.2 mg/dLBON AULTMAN ORRVILLE HOSPITALCalcium [Mass/Vol]10.1 mg/dL8.6 - 10.4 mg/dLBON AULTMAN ORRVILLE HOSPITALChloride [Moles/Vol] 102 mmol/L98 - 107 mmol/LBON AULTMAN ORRVILLE HOSPITALCO2 [Moles/Vol]19 mmol/LLow20 - 31 mmol/LBON [facility] ORRVILLE HOSPITALCreatinine [Mass/Vol]0.99 mg/dLHigh0.50 - 0.90 mg/dLBON AULTMAN ORRVILLE HOSPITALGFR/1.73 sq M.predicted MDRD (S/P/Bld) [Vol rate/Area]- PINFBON AULTMAN ORRVILLE HOSPITALComment on above: Effective May 02, 2022 These [...] therapy that affects renal tubular secretion. Glucose [Mass/Vol]106 mg/uMQyql77 - 99 mg/dLBON [facility]OSPITAL Interpretation and review of laboratory resultsAbnormalB[facility] Potassium [Moles/Vol]3.5 mmol/LLow3.7 - 5.3 mmol/LB[facility] Protein [Mass/Vol]7.1 g/dL6.4 - 8.3 g/dLBON AULTMAN ORRVILLE HOSPITALSodium [Moles/Vol]136 mmol/L135 - 144 mmol/LBON AULTMAN ORRVILLE HOSPITALUrea nitrogen (BldV) [Mass/Vol]12 mg/dL6 - 20 mg/dLBON AULTMAN ORRVILLE HOSPITALUrea nitrogen/Creatinine (Bld) [Mass ratio]129 - 20BON AULTMAN ORRVILLE HOSPITALBON [facility] HEALTHCOMP. METABOLIC PANELon 03-89-4759Pescnss [Mass/Vol]4.5 g/dL Normal3.5-5.1SCuero Regional HospitalComment on above:Performed By: #### CBCWD, EGFR1, ANION, CMPX #### [facility] [address] [place], [place] [address]WFD [Catalytic activity/Vol]112 U/INhhbtr68-546MsnetThe Medical Center of Southeast TexasComment on above:Performed By: #### CBCWD, EGFR1, ANION, CMPX #### [facility] [address] [place], [place] [address]HOL [Catalytic activity/Vol]12 U/GPnrpvb62-03CpkqgThe Medical Center of Southeast TexasComment on above:Performed By: #### CBCWD, EGFR1, ANION, CMPX #### [facility] [address] [place], [place] [address]UEV [Catalytic activity/Vol]20 U/LNormal5-40SCuero Regional HospitalComment on above:Performed By: #### CBCWD, EGFR1, ANION, CMPX #### [facility] [address] [place], [place] [address]Lnzzdxmtw [Mass/Vol]0.7 mg/dLNormal0.3-1.2SCuero Regional HospitalComment on above:Performed By: #### CBCWD, EGFR1, ANION, CMPX #### [facility] [address] [place], [place] [address]Zlugkje [Mass/Vol]10.1 mg/dLNormal8.5-10.5SCuero Regional HospitalComment on above:Performed By: #### CBCWD, EGFR1, ANION, CMPX #### [facility] [address] [place] [address]Fnjjmdcp [Moles/Vol]100 mmol/UQlaade99-655BqofmThe Medical Center of Southeast TexasComment on above:Performed By: #### CBCWD, EGFR1, ANION, CMPX #### [facility] [address] [place] [address]AI7 [Moles/Vol]24 mmol/JDblrdx00-86IplcfThe Medical Center of [facility] [place] Comment on above:Performed By: #### CBCWD, EGFR1, ANION, CMPX #### [facility] [address] [address]Xywkvnadvv [Mass/Vol]1.0 mg/dLNormal0.4-1.2SCuero Regional HospitalComment on above:Performed By: #### CBCWD, EGFR1, ANION, CMPX #### [facility] [address] [address]Gyqroqv [Mass/Vol]100 mg/qSUvewjl71-424TtydbThe Medical Center of [facility] [place] Comment on above:Performed By: #### CBCWD, EGFR1, ANION, CMPX #### [facility] [address] [address]YFXGATMSM WITH REFLEX MG5.3 meq/LHigh3.5-5.2SCuero Regional HospitalComment on above:Performed By: #### CBCWD, EGFR1, ANION, CMPX #### [facility] [address] [address]Opskcrp [Mass/Vol]6.9 g/dLNormal6.1-8.0[facility] [place] Comment on above:Performed By: #### CBCWD, EGFR1, ANION, CMPX #### [facility] [address] [address]Zexoys [Moles/Vol]136 mmol/NJwcpcs243-192JddsjThe Medical Center of Southeast TexasComment on above:Performed By: #### CBCWD, EGFR1, ANION, CMPX #### [facility] [address] [address]Nyer nitrogen [Mass/Vol]13 mg/dLNormal7-22SaLongview Regional Medical CenterComment on above:Performed By: #### CBCWD, EGFR1, ANION, CMPX #### [facility] [address] [place], [place] [address]WU Head W/O Contraston 36-55-1905Dy acute intracranial abnormality. [facility] CONSOLIDATEDEXAMINATION: CT OF THE HEAD WITHOUT CONTRAST 05/24/2022 [...] condition->Emergency Medical Condition (MA) Is the patient ?->No [...] of the visualized skull or soft tissues. [facility] Skyler rFanklin MD - 05/24/2022 EXAMINATION: CT OF THE [...] condition->Emergency Medical Condition (MA) Is the patient ?->No [...] soft tissues. IMPRESSION: No acute intracranial abnormality. [employer] Work Phone: radiology Study observation (narrative)[employer] Work Phone: cT Head W/O ContrastOrdered By: Skyler Hilliard on 13-37-8683DFA [employer] Work Phone: Comprehensive Metabolic Panel w/ Reflex to MGon 91-53-9273Xxowlzj [Mass/Vol]4.5 g/dL3.5 - 5.1 g/dLBON [employer] PharmaALP (Bld) [Catalytic activity/Vol]112 U/L38 - 126 U/LBON [facility] CENTERYourTime SolutionsALT [Catalytic activity/Vol]12 U/L11 - 66 U/LBON [employer] PharmaComment on above:Performed at [facility] [address] [place] [address]BHF [Catalytic activity/Vol]20 U/L5 - 40 U/LBON [facility] CENTERYourTime SolutionsBilirubin [Mass/Vol]0.7 mg/dL0.3 - 1.2 mg/dLBON MOUNT[facility]ISTA MEDICAL CENTERYourTime SolutionsCalcium [Mass/Vol]10.1 mg/dL8.5 - 10.5 mg/dLBON MOUNTAIN [facility]ISTA MEDICAL CENTERYourTime SolutionsChloride [Moles/Vol]100 mmol/L98 - 111 meq/LBON SECYourTime SolutionsCO2 [Moles/Vol]24 mmol/L23 - 33 meq/LBON SECYourTime SolutionsCreatinine [Mass/Vol]1 mg/dL0.4 - 1.2 mg/dLBON MOUNT[facility] VISTA MEDICAL CENTERYourTime SolutionsGlucose [Mass/Vol]100 mg/dL70 - 108 mg/dLBON MOUNTAIN VISTA MEDICAL CENTERYourTime Solutions Interpretation and review of laboratory resultsAbnormalBON MOUNTAIN VISTA MEDICAL CENTERYourTime Solutions Potassium [Moles/Vol]5.3 mmol/LHigh3.5 - 5.2 meq/LBON [employer] Protein [Mass/Vol]6.9 g/dL6.1 - 8.0 g/dLBON [employer] [facility]-FAIRHILLSodium [Moles/Vol]136 mmol/L135 - 145 meq/LBON [employer] PharmaUrea nitrogen (BldV) [Mass/Vol]13 mg/dL7 - 22 mg/dLBON MOUNTAIN VISTA MEDICAL CENTERMatrixVision [facility]-FAIRHILLEEGon 21-83-6200Sinbibnh Owais, MD 05/24/2022 3:26 PM Date: 05/24/2022 Referring physician: Dhruv Carrillo MD Indication Patient aged 56 y with encephalopathy. EEG done to assess for epileptiform activity. Introduction This routine 20-minute EEG was recorded using the International 10-20 System on a [employer] workstation at 256 samples/s. Automated spike and [...] Board Certified. Neurology Board Certified. Electronically Signed [facility] STR MUSEEEGOrdered By: Evelio Sullivan on 38-29-1435QZG [employer] Work Phone: ekg 12 leadOrdered By: Eddy Lopez on 05-24-2022 Atrial Sghz79QVEFHE [employer] Phone: p Ajsg36mlslzncVDZ [employer] Phone: p-R Prwufpra058 [facility] [employer] Phone: q-T Zynhdbwy730 dcAsh[employer] Phone: QRS Ibhscoeo62 msBON [employer] Work Phone: [phone] Calculation (Bazett)480 msBON [employer] Work Phone: [phone] Cgcv76xnucwlvNXT [employer] Work Phone: [phone] Zxrb24pofpysuZVX [employer] Work Phone: [phone] Ucko03IWNTCT [employer] Work Phone: [phone] [employer] Work Phone: [phone] 12 leadon 00-19-8266Eiearw sinus rhythm Septal infarct , age undetermined Abnormal ECG No previous ECGs available Confirmed by EDDY LOPEZ ([id number]) on 05/24/2022 8:07:58 PMWCOH STR Eddy Bautista MD - 05/24/2022 Normal sinus rhythm Septal infarct , age undetermined Abnormal ECG No previous ECGs available Confirmed by EDDY LOPEZ ([id number]) on 05/24/2022 8:07:58 PM BANNER [employer] Phone: ekg 12-LEADon 32-41-2350NLB 12-LEAD98 98 [phone] Normal sinus rhythm Septal infarct , age undetermined Abnormal ECG No previous ECGs available Confirmed by EDDY LOPEZ ([id number]) on 05/24/2022 8:07:58 PM [email or web address]=&Time=13%3a31%3a52%3a00&TestType=ECG&Site=3&OutputType=PDF&Ext=PDFNormal [facility] of Southeast TexasGFR, ESTIMATEDon 06-61-8386DOQ/1.73 sq M.predicted MDRD (S/P/Bld) [Vol rate/Area]mL/min/{1.73_m2}Normal>60SaLongview Regional Medical CenterComment on above:Result Comment: Pediatric calculator link https://www.kidney.org/professionals/kdoqi/gfr_calculatorped Effective May 02, [...] or following therapy that affects renal tubular secretion.Performed By: #### CBCWD, EGFR1, ANION, CMPX #### [facility] [address] [address] Filtration Rate, Estimatedon [id number]/1.73 sq M.predicted MDRD (S/P/Bld) [Vol rate/Area]- [facility] on above:Pediatric calculator link [email or web address] Effective May 02, 2022 [...] that affects renal tubular secretion. Performed at [address] [address] GFR/1.73 sq M.predicted MDRD (S/P/Bld) [Vol rate/Area]- [facility] on above:Pediatric calculator link [email or web address] Effective May 02, 2022 [...] that affects renal tubular secretion. Performed at [facility] [address] [place] [address] No Panel Informationon [id number] [facility] CENTERMatrixVision [facility] MED[facility] CENTERSplitGigs [facility]-FAIRHILLXR ANKLE LEFT (MIN 3 VIEWS)on [id number] of the lateral aspect of the base of the lateral malleolus of left fibula without significant displacement. Moderate to marked soft tissue swelling at the lateral aspect of the left ankle joint. [facility] CONSOLIDATEDEXAMINATION: THREE X-RAY VIEWS OF THE LEFT ANKLE [...] abnormality involving left talus and calcaneus bone. [facility] Man Sheppard MD - 05/24/2022 EXAMINATION: THREE X-RAY VIEWS [...] lateral aspect of the left ankle joint. [employer] Work Phone: bON [facility] enosiX Work Phone: XR FOOT LEFT (MIN 3 VIEWS)on [id number] of displaced comminuted fracture at the medial aspect of base of the left 1st metatarsal bone. Transverse fracture through the base of the 2nd metatarsal bones. Evidence of comminuted fractures in the base of the 3rd metatarsal bone. There is no obvious subluxation or dislocation of the base of the metatarsal bones. RECOMMENDATION: For further evaluation, CT scan of left foot, suggested. [facility] CONSOLIDATEDEXAMINATION: THREE XRAY VIEWS OF THE LEFT FOOT [...] foot, there is no additional fracture identified. [facility] Man Sheppard MD - 05/24/2022 EXAMINATION: THREE XRAY VIEWS [...] evaluation, CT scan of left foot, suggested. [employer] Work Phone: XR FOOT LEFT (MIN 3 VIEWS)Ordered By: Man Levi on [id number] [employer] Work Phone: CBC with Auto Differentialon [id number] Eos # 0.11BON [facility] MEDICAL CENTERSplitGigs [facility]-FAIRHILLAbsolute Immature GranulocyteBON MOUNTAIN VISTA MEDICAL CENTERPretty in my Pocket (PRIMP) [facility]ALSplitGigs [facility]-FAIRHILLAbsolute Lymph #2.56BON [facility] MEDICAL CENTERPretty in my Pocket (PRIMP) [facility]ALSplitGigs [facility]FAIRHILLAbsolute [place] #0.36BON [facility] CENTERSplitGigs [facility]-FAIRHILLBasophils AbsoluteBON AULTMAN ORRVILLE HOSPITALBasophils/100 WBC (Bld)0 % 0 - 2 %[facility]St[facility]UN[facility] WeLike [facility]-FAIRHILLEosinophils/100 WBC (Bld)2 %1 - 4 %[facility]' HOSPITALHematocrit (Bld) [Volume fraction]31.6 %Low36.3 - 47.1 %[facility]ENTERSplitGigs [facility]-FAIRHILLHemoglobin (Bld) [Mass/Vol]10.7 g/dLLow11.9 - 15.1 g/dLBON AULTMAN ORRVILLE HOSPITALImmature granulocytes/100 WBC (Bld)0 %0[facility] Interpretation and review of laboratory resultsAbnormalBON [facility] Lymphocytes/100 WBC (Bld)35 %24 - 43 %[facility]ORTSMOUTHH (RBC) [Entitic mass]32.6 pg25.2 - 33.5 pgNAVAL MEDICAL CENTER PORTSMOUTHHC (RBC) [Mass/Vol]33.9 g/dL28.4 - 34.8 g/dLBON [facility] MED[facility] CENTERSplitGigs [facility] HOSPITALV (RBC) [Entitic vol]96.3 fL82.6 - 102.9 fLRETREAT DOCTORS' HOSPITALMonocytes/100 WBC (Bld)5 %3 - 12 %KENNEDY HDZ [facility]OP[facility] HOSPITALOvidio [facility]LEVELAND-FAIRHILLNRBC Automated0.00.0 per 100 WBCSAINT JOHN'S HOSPITALMARJ [facility] OSTEOPATHIC HOSPITALOvidio HEALTHPlatelet distribution width (Bld) [Ratio]12.7 %11.8 - 14.4 %[facility] Platelets (Bld) [#/Vol]See Reflexed IPF ResultBON MOUNTAIN VISTA MEDICAL CENTERMARJ VETERANS HEALTH ADMINISTRATIONRBC (Bld) [#/Vol]3.28 10*6/uLLow3.95 - 5.11 m/uLRETREAT DOCTORS' HOSPITALSegmented neutrophils/100 WBC (Bld)58 %36 - 65 %KENNEDY [facility] CENTERMARJ [facility]STEOP[facility] HOSPITALOvidio [facility] SPECIALTY HOSP[facility] - CLEVELAND-FAIRHILLSegs Absolute4.27 KENNEDY [facility] CENTERMARJ [facility]OP[facility] HOSPITALOvidio [facility]-FAIRHILLWBC (Bld) [#/Vol]7.3 10*3/uLBON SECCHI [facility] HEALTHEthanolon [id number] [Mass/Vol]13 mg/dLHighNINF - 10 mg/dLBON [facility] HEALTHEthanol percent0.013 %HighNINF - 0.010 %[facility]CTORS' HOSPITALInterpretation and review of laboratory resultsAbnormalBON BLACK HILLS SURGERY CENTERImmature Platelet Fractionon 05-23-2022 Platelet, [id number] DOCTORS' HOSPITALPlatelet, Immature Fraction2.2 %1.1 - 10.3 %[facility] HEALTHXR ANKLE LEFT (MIN 3 VIEWS)on [id number] Study observation (narrative)[facility] [employer] Work Phone: XR FOOT LEFT (MIN 3 VIEWS)on [id number] Study observation (narrative)[facility] Work Phone: cBC Auto Differentialon [id number] Eos #0.00 [facility] HealthAbsolute Immature Granulocyte0.00Mercy HealthAbsolute Lymph #1.94 [facility] HealthAbsolute [place] #0.20Mercy HealthBasophils (Bld) [#/Vol]0.00 10*3/uL [facility] HealthBasophils/100 WBC (Bld)0 %0 - 2 %[facility] HealthDifferential TypeNOT REPORTEDMercy HealthEosinophils/100 WBC (Bld)0 %Low1 - 4 %[facility] CenterHematocrit (Bld) [Volume fraction]30.3 %Low36.3 - 47.1 %[facility] Hemoglobin.gastrointestinal spec 1 Ql (Stl)10.7 g/dLLow11.9 - 15.1 g/dLUpper Valley Medical CenterImmature granulocytes/100 WBC (Bld)0 %0[facility] CenterInterpretation and review of laboratory resultsAbnormalUpper Valley Medical CenterLymphocytes/100 WBC (Bld)50 % High24 - 43 %[facility] HospitalH (RBC) [Entitic mass]30.7 pg25.2 - 33.5 pgTriHealth Bethesda Butler HospitalHC (RBC) [Mass/Vol]35.3 g/fMOhny71.4 - 34.8 g/dLTriHealth Bethesda Butler HospitalV (RBC) [Entitic vol]87.1 fL82.6 - 102.9 fLUpper Valley Medical CenterMonocytes/100 WBC (Bld)5 %3 - 12 %[facility] CenterMorphology Alejandro (Bld) [Interp]NormalUpper Valley Medical CenterNRBC Automated0.00.0 per 100 WBCUpper Valley Medical CenterPlatelet distribution width (Bld) [Ratio]14.3 %11.8 - 14.4 %[facility] CenterPlatelet EstimateNOT REPORTEDUpper Valley Medical CenterPlatelet mean volume (Bld) [Entitic vol]NOT REPORTED8.1 - 13.5 fLUpper Valley Medical CenterPlatelets (Bld) [#/Vol] See Reflexed IPF ResultMerNavos HealthRBC (Bld) [#/Vol]3.48 10*6/uLLow3.95 - 5.11 m/uLMerNavos HealthRBC (Bld) [#/Vol]NOT REPORTEDUpper Valley Medical CenterSegmented neutrophils/100 WBC (Bld)45 %36 - 65 %[facility] CenterSegs Absolute1.76[facility] WBC (Bld) [#/Vol]3.9 10*3/uLUpper Valley Medical CenterWBC (Bld) [#/Vol]NOT REPORTEDThe [facility] Hospital HealthComprehensive Metabolic Panel w/ Reflex to MGon 06-18-2021 Albumin [Mass/Vol]3.3 g/dLLow3.5 - 5.2 g/dLMercy HealthAlbumin/Globulin [Mass ratio]1.3 {ratio}[facility] HealthALP (Bld) [Catalytic activity/Vol]47 U/L35 - 104 U/LMercy HealthALT [Catalytic activity/Vol]15 U/L5 - 33 U/LMercy HealthAnion gap [Moles/Vol]14 mmol/L9 - 17 mmol/LMercy HealthAST [Catalytic activity/Vol]28 U/L <32[facility] HealthBilirubin [Mass/Vol]0.33 mg/dL0.3 - 1.2 mg/dLMercy HealthCalcium [Mass/Vol]9.3 mg/dL8.6 - 10.4 mg/dLMercy HealthChloride [Moles/Vol]108 mmol/L High98 - 107 mmol/LMercy HealthCO2 [Moles/Vol]15 mmol/LLow20 - 31 mmol/LMercy HealthCreatinine [Mass/Vol]0.71 mg/dL0.50 - 0.90 mg/dLUpper Valley Medical CenterFree PSA/Total PSA [Mass fraction]5.9 g/dLLow6.4 - 8.3 g/dLAkron Children'S Hospital HealthGFR >60 >60 mL/minAkron Children'S Hospital HealthGFR Non->60>60 mL/minAkron Children'S Hospital HealthGlucose [Mass/Vol]77 mg/dL70 - 99 mg/dLUpper Valley Medical CenterInterpretation and review of laboratory resultsAbnormalMer HealthPotassium [Moles/Vol]3.7 mmol/L3.7 - 5.3 mmol/LMercy HealthSodium [Moles/Vol]137 mmol/L135 - 144 mmol/LMercy HealthUrea nitrogen (BldV) [Mass/Vol]8 mg/dL6 - 20 mg/dLMercy HealthUrea nitrogen/Creatinine (Bld) [Mass ratio]11[facility] GlendaleD-Dimer, Quantitativeon [id number]-Dimer, Quant0.91HighUpper Valley Medical CenterComment on above: When combined with a low [...] distal DVT. Interpretation and review of laboratory resultsAbMayo Clinic Health System– Arcadia EKG Rhythm Stripon [id number] TucsonFibrinogenon 55-03-7429Vqqtsdcmcd573 mg/dL 179 - 518 mg/dLOrthopaedic Hospital of Wisconsin - GlendaleImmature Platelet Fractionon 06-18-2021 Interpretation and review of laboratory resultsAbOhioHealth Berger HospitalPlatelet, [id number] HealthPlatelet, Immature Fraction5.2 %1.1 - 10.3 %[facility] GlendaleLaboratory - Chemistry and Chemistry - challengeon 06-18-2021 GFR/1.73 sq M.predicted MDRD (S/P/Bld) [Vol rate/Area][facility] on above:Average GFR for 50-59 years old: 93 mL/min/1.73sq m Chronic Kidney Disease: <60 mL/min/1.73sq m Kidney failure: <15 mL/min/1.73sq m eGFR calculated using average adult body mass. Additional eGFR calculator available at: http://www.[employer]/multiple_crcl_2012.htm Stage 1: Some kidney damage normal GFR Stage 2: Mild kidney damage GFR 60-89 Stage 3: Moderate kidney damage GFR 30-59 Stage 4: Severe kidney damage GFR 15-29 Stage 5: Severe kidney damage GFR <15 ESRD - chronic treatment by dialysis or transplant C-Reactive Proteinon [id number] [Mass/Vol]56.5 mg/LHigh0.0 - 5.0 mg/LMercy HealthInterpretation and review of laboratory resultsAbnormalMilwaukee Regional Medical Center - Wauwatosa[note 3] Auto Differentialon [id number] Eos #0.00[facility] CenterAbsolute Immature Granulocyte0.04MerNavos HealthAbsolute Lymph #2.01MerNavos HealthAbsolute [place] #0.22Mer HealthBasophils (Bld) [#/Vol]0.00 10*3/uLMer Health Basophils/100 WBC (Bld)0 %0 - 2 %[facility] CenterDifferential TypeNOT REPORTEDUpper Valley Medical CenterEosinophils/100 WBC (Bld)0 %Low1 - 4 %[facility] CenterHematocrit (Bld) [Volume fraction]33.8 %Low36.3 - 47.1 %[facility] CenterHemoglobin.gastrointestinal spec 1 Ql (Stl)11.6 g/dLLow11.9 - 15.1 g/dLUpper Valley Medical CenterImmature granulocytes/100 WBC (Bld)1 %Mthm9Ldmaw HealthInterpretation and review of laboratory resultsAbnormal [facility] CenterLymphocytes/100 WBC (Bld)56 %High24 - 43 %[facility] HospitalH (RBC) [Entitic mass]29.7 pg25.2 - 33.5 pgTriHealth Bethesda Butler HospitalHC (RBC) [Mass/Vol]34.3 g/dL 28.4 - 34.8 g/dLTriHealth Bethesda Butler HospitalV (RBC) [Entitic vol]86.7 fL82.6 - 102.9 fLUpper Valley Medical CenterMonocytes/100 WBC (Bld)6 %3 - 12 %[facility] CenterMorphology Alejandro (Bld) [Interp]NormalUpper Valley Medical CenterNRBC Automated0.00.0 per 100 WBCAkron Children'S Hospital HealthPlatelet distribution width (Bld) [Ratio]14.0 %11.8 - 14.4 %[facility] CenterPlatelet Estimate NOT REPORTEDAkron Children'S Hospital HealthPlatelet mean volume (Bld) [Entitic vol]NOT REPORTED8.1 - 13.5 fLAkron Children'S Hospital HealthPlatelets (Bld) [#/Vol]See Reflexed IPF ResultMer Health RBC (Bld) [#/Vol]3.90 10*6/uLLow3.95 - 5.11 m/uLMercy HealthRBC (Bld) [#/Vol]NOT REPORTEDMercy HealthSegmented neutrophils/100 WBC (Bld)37 %36 - 65 %[facility] Hospitaly [facility] Medical CenterSegs Absolute1.33LowMercy HealthWBC (Bld) [#/Vol]3.6 10*3/uLMercy Health WBC (Bld) [#/Vol]NOT REPORTEDMer HealthMercy HealthComprehensive Metabolic Panel w/ Reflex to MGon [id number] [Mass/Vol]3.8 g/dL3.5 - 5.2 g/dLMercy HealthAlbumin/Globulin [Mass ratio]1.5 {ratio}[facility] Hospitaly HealthALP (Bld) [Catalytic activity/Vol]53 U/L35 - 104 U/LMercy HealthALT [Catalytic activity/Vol]16 U/L5 - 33 U/LMercy HealthAnion gap [Moles/Vol]13 mmol/L9 - 17 mmol/LMercy HealthAST [Catalytic activity/Vol]36 U/LHigh<32Mercy HealthBilirubin [Mass/Vol]0.37 mg/dL 0.3 - 1.2 mg/dLMercy HealthCalcium [Mass/Vol]9.5 mg/dL8.6 - 10.4 mg/dLMercy HealthChloride [Moles/Vol]110 mmol/LHigh98 - 107 mmol/LMercy HealthCO2 [Moles/Vol]16 mmol/LLow20 - 31 mmol/LMercy HealthCreatinine [Mass/Vol]0.97 mg/dL High0.50 - 0.90 mg/dLMercy HealthFree PSA/Total PSA [Mass fraction]6.4 g/dL6.4 - 8.3 g/dLMercy HealthGFR >60>60 mL/minMercy HealthGFR Non->60>60 mL/minMercy HealthGlucose [Mass/Vol]90 mg/dL70 - 99 mg/dLMercy HealthInterpretation and review of laboratory resultsAbnormalMer Health Potassium [Moles/Vol]3.6 mmol/LLow3.7 - 5.3 mmol/LMercy HealthSodium [Moles/Vol] 139 mmol/L135 - 144 mmol/LMercy HealthUrea nitrogen (BldV) [Mass/Vol]14 mg/dL6 - 20 mg/dLUpper Valley Medical CenterUrea nitrogen/Creatinine (Bld) [Mass ratio]14[facility] CenterD-Dimer, Quantitativeon [id number]-Dimer, Quant1.14[facility] Comment on above: When combined with [...] distal DVT. Interpretation and review of laboratory resultsAbnoOutagamie County Health Center EKG Rhythm Stripon [id number] TucsonFerritinon 64-01-8712Hkezoibg301 ug/LHigh 13 - 150 ug/LMercy HealthInterpretation and review of laboratory resultsAbnoAurora Medical Center-Washington CountyFibrinogenon [id number] mg/dL179 - 518 mg/dLOrthopaedic Hospital of Wisconsin - GlendaleImmature Platelet Fractionon 06-17-2021 Interpretation and review of laboratory resultsAbnormalMercy HealthPlatelet, Novkscuiltio55VvfUbwjv HealthPlatelet, Immature Fraction3.1 %1.1 - 10.3 %[facility] Xtelligent MediaUpper Valley Medical CenterLaboratory - Chemistry and Chemistry - challengeon 06-17-2021 GFR/1.73 sq M.predicted MDRD (S/P/Bld) [Vol rate/Area][facility] CenterComment on above:Average GFR for 50-59 years old: 93 mL/min/1.73sq m Chronic Kidney Disease: <60 mL/min/1.73sq m Kidney failure: <15 mL/min/1.73sq m eGFR calculated using average adult body mass. Additional eGFR calculator available at: http://www.[employer]/multiple_crcl_2011.htm Stage 1: Some kidney damage normal GFR Stage 2: Mild kidney damage GFR 60-89 Stage 3: Moderate kidney damage GFR 30-59 Stage 4: Severe kidney damage GFR 15-29 Stage 5: Severe kidney damage GFR <15 ESRD - chronic treatment by dialysis or transplant C-Reactive Proteinon [id number] [Mass/Vol]35.9 mg/LHigh0.0 - 5.0 mg/LMercy HealthInterpretation and review of laboratory resultsAbnormalOrthopaedic Hospital of Wisconsin - GlendaleCBC Auto Differentialon [id number] Eos #0.00MerSignicast HealthAbsolute Immature Granulocyte0.03Mercy HealthAbsolute Lymph #0.66LowMerSignicast HealthAbsolute [place] #0.09LowAkron Children'S Hospital HealthBasophils (Bld) [#/Vol]0.00 10*3/uLMercy Health Basophils/100 WBC (Bld)0 %0 - 2 %[facility] HospitalBrightQubeDifferential TypeNOT REPORTEDMer HealthEosinophils/100 WBC (Bld)0 %Low1 - 4 %[facility] HospitalBrightQubeHematocrit (Bld) [Volume fraction]30.3 %Low36.3 - 47.1 %[facility] HospitalBrightQubeHemoglobin.gastrointestinal spec 1 Ql (Stl)10.2 g/dLLow11.9 - 15.1 g/dLMer HealthImmature granulocytes/100 WBC (Bld)1 %Csed0Nufzs HealthInterpretation and review of laboratory resultsAbnormal Mercy HealthLymphocytes/100 WBC (Bld)22 %Low24 - 43 %[facility] HospitalH (RBC) [Entitic mass]30.2 pg25.2 - 33.5 pgTriHealth Bethesda Butler HospitalHC (RBC) [Mass/Vol]33.7 g/dL 28.4 - 34.8 g/dLUpper Valley Medical CenterMCV (RBC) [Entitic vol]89.6 fL82.6 - 102.9 fLAkron Children'S Hospital HealthMonocytes/100 WBC (Bld)3 %3 - 12 %[facility] CenterMorphology Alejandro (Bld) [Interp]NormalAkron Children'S Hospital HealthNRBC Automated0.00.0 per 100 WBCAkron Children'S Hospital HealthPlatelet distribution width (Bld) [Ratio]14.1 %11.8 - 14.4 %[facility] Medical CenterPlatelet Estimate NOT REPORTEDAkron Children'S Hospital HealthPlatelet mean volume (Bld) [Entitic vol]10.4 fL8.1 - 13.5 fLAkron Children'S Hospital HealthPlatelets (Bld) [#/Vol]101 10*3/uLLowAkron Children'S Hospital HealthRBC (Bld) [#/Vol]3.38 10*6/uLLow3.95 - 5.11 m/uLAkron Children'S Hospital HealthRBC (Bld) [#/Vol]NOT REPORTED [facility] CenterSegmented neutrophils/100 WBC (Bld)74 %High36 - 65 %[facility] CenterSegs Absolute2.22Mer HealthWBC (Bld) [#/Vol]3.0 10*3/uLLowUpper Valley Medical CenterWBC (Bld) [#/Vol]NOT REPORTEDThe [facility] HealthComprehensive Metabolic Panel w/ Reflex to MGon [id number] [Mass/Vol]3 g/dLLow3.5 - 5.2 g/dLUpper Valley Medical Center Albumin/Globulin [Mass ratio]1.5 {ratio}[facility] HealthALP (Bld) [Catalytic activity/Vol]44 U/L35 - 104 U/LMercy HealthALT [Catalytic activity/Vol]10 U/L5 - 33 U/LMercy HealthAnion gap [Moles/Vol]16 mmol/L9 - 17 mmol/LMercy HealthAST [Catalytic activity/Vol]22 U/L<32[facility] HealthBilirubin [Mass/Vol]mg/dLLow0.3 - 1.2 mg/dLUpper Valley Medical CenterCalcium [Mass/Vol]7.6 mg/dLLow8.6 - 10.4 mg/dLUpper Valley Medical Center Chloride [Moles/Vol]115 mmol/LHigh98 - 107 mmol/LMercy HealthCO2 [Moles/Vol]9 mmol/LCritically low20 - 31 mmol/LMercy HealthCreatinine [Mass/Vol]1.1 mg/dLHigh 0.50 - 0.90 mg/dLUpper Valley Medical CenterFree PSA/Total PSA [Mass fraction]5.0 g/dLLow6.4 - 8.3 g/dLAkron Children'S Hospital HealthGFR >60>60 mL/minMer HealthGFR Non- Rndkxyoi39 mL/minLow>60[facility] CenterGlucose [Mass/Vol]89 mg/dL70 - 99 mg/dLUpper Valley Medical CenterInterpretation and review of laboratory resultsAbnormalUpper Valley Medical Center Potassium [Moles/Vol]2.2 mmol/LCritically low3.7 - 5.3 mmol/LMercy HealthSodium [Moles/Vol]140 mmol/L135 - 144 mmol/LMercy HealthUrea nitrogen (BldV) [Mass/Vol] 21 mg/dLHigh6 - 20 mg/dLUpper Valley Medical CenterUrea nitrogen/Creatinine (Bld) [Mass ratio] 19[facility] - GlendaleD-Dimer, Quantitativeon [id number]-Dimer, Quant0.61 HighUpper Valley Medical CenterComment on above: When combined with a low [...] distal DVT. Interpretation and review of laboratory resultsAbnoOutagamie County Health Center EKG Rhythm Stripon [id number] TucsonFerritinon 02-07-2374Lkuuyspg004 ug/LHigh 13 - 150 ug/LMercy HealthInterpretation and review of laboratory resultsAbPrairie Ridge HealthFibrinogenon [id number] mg/dL179 - 518 mg/dLOrthopaedic Hospital of Wisconsin - GlendaleLaboratory - Chemistry and Chemistry - challengeon 60-52-0737QWD/1.73 sq M.predicted MDRD (S/P/Bld) [Vol rate/Area][facility] Comment on above:Average GFR for 50-59 years old: 93 mL/min/1.73sq m Chronic Kidney Disease: <60 mL/min/1.73sq m Kidney failure: <15 mL/min/1.73sq m eGFR calculated using average adult body mass. Additional eGFR calculator available at: http://www.[employer]/multiple_crcl_2012.htm Stage 1: Some kidney damage normal GFR Stage 2: Mild kidney damage GFR 60-89 Stage 3: Moderate kidney damage GFR 30-59 Stage 4: Severe kidney damage GFR 15-29 Stage 5: Severe kidney damage GFR <15 ESRD - chronic treatment by dialysis or transplant MRI BRAIN W WO CONTRASTon [id number]: MRI OF THE BRAIN WITHOUT AND WITH CONTRAST 06/16/2021 12:35 pm TECHNIQUE: Multiplanar multisequence MRI of the head/brain was performed without and with the administration of intravenous contrast. COMPARISON: None. HISTORY: ORDERING SYSTEM PROVIDED HISTORY: ams TECHNOLOGIST PROVIDED HISTORY: ams Is the patient ?->No Initial evaluation. FINDINGS: Motion degrades images limiting evaluation. INTRACRANIAL STRUCTURES/VENTRICLES: There is no acute infarct. No mass [...] The soft tissues demonstrate no acute abnormality. [facility] Joey Nazario MD - 06/16/2021 EXAMINATION: MRI OF THE BRAIN WITHOUT AND WITH CONTRAST 06/16/2021 12:35 pm TECHNIQUE: Multiplanar multisequence MRI of the head/brain was performed without and with the administration of intravenous contrast. COMPARISON: None. HISTORY: ORDERING SYSTEM PROVIDED HISTORY: ams TECHNOLOGIST PROVIDED HISTORY: ams Is the patient ?->No Initial evaluation. FINDINGS: Motion degrades images limiting evaluation. INTRACRANIAL STRUCTURES/VENTRICLES: There is no acute infarct. No mass [...] Scattered mucosal thickening of the paranasal sinuses. [employer] Phone: radiology Study observation (narrative)[employer] Phone: MRI BRAIN W WO CONTRASTOrdered By: Joey Phillips on [id number] Work Phone: Magnesiumon [id number] [Mass/Vol]1.6 mg/dL1.6 - 2.6 mg/dLThe [facility]vue Hospital HealthPotassiumon [id number] and review of laboratory resultsAbnormalAkron Children'S Hospital HealthPotassium [Moles/Vol]2.9 mmol/L Critically low3.7 - 5.3 mmol/LMercy [facility] HealthAmmoniaon 06-15-2021 Ammonia (P) [Moles/Vol]33 umol/L11 - 41 umol/LMercy Peoples HospitalC-Reactive Proteinon [id number] [Mass/Vol]20.2 mg/LHigh0.0 - 5.0 mg/LMsamaritan hospitaly [facility] Interpretation and review of laboratory resultsAbnormalOrthopaedic Hospital [facility] CBC auto differentialon [id number] Eos #0.00MerNavos HealthAbsolute Immature Granulocyte0.04Mer HealthAbsolute Lymph #0.53LowMer HealthAbsolute [place] #0.33MerNavos HealthBasophils (Bld) [#/Vol]0.00 10*3/uLMer Health Basophils/100 WBC (Bld)0 %0 - 2 %[facility] CenterDifferential TypeNOT REPORTEDMerNavos HealthEosinophils/100 WBC (Bld)0 %Low1 - 4 %[facility] CenterHematocrit (Bld) [Volume fraction]39.6 %36.3 - 47.1 %[facility] Xtelligent MediaHemoglobin.gastrointestinal spec 1 Ql (Stl)13.7 g/dL11.9 - 15.1 g/dLUpper Valley Medical CenterImmature granulocytes/100 WBC (Bld)1 % Wqff7Ezldn HealthInterpretation and review of laboratory resultsAbnormUniversity Hospitals TriPoint Medical CenterLymphocytes/100 WBC (Bld)13 %Low24 - 43 %[facility] HospitalH (RBC) [Entitic mass]30.3 pg25.2 - 33.5 pgTriHealth Bethesda Butler HospitalHC (RBC) [Mass/Vol]34.6 g/dL28.4 - 34.8 g/dLTriHealth Bethesda Butler HospitalV (RBC) [Entitic vol]87.6 fL82.6 - 102.9 fLUpper Valley Medical Center Monocytes/100 WBC (Bld)8 %3 - 12 %[facility] Medical CenterMorphology Alejandro (Bld) [Interp] NormalUpper Valley Medical CenterNRBC Automated0.00.0 per 100 WBCAkron Children'S Hospital HealthPlatelet distribution width (Bld) [Ratio]13.7 %11.8 - 14.4 %[facility] CenterPlatelet Estimate NOT REPORTEDAkron Children'S Hospital HealthPlatelet mean volume (Bld) [Entitic vol]10.0 fL8.1 - 13.5 fLAkron Children'S Hospital HealthPlatelets (Bld) [#/Vol]177 10*3/uLUpper Valley Medical CenterRBC (Bld) [#/Vol]4.52 10*6/uL3.95 - 5.11 m/uLUpper Valley Medical CenterRBC (Bld) [#/Vol]NOT REPORTED [facility] CenterSegmented neutrophils/100 WBC (Bld)78 %High36 - 65 %[facility] CenterSegs Absolute3.20[facility] CenterWBC (Bld) [#/Vol]4.1 10*3/uLUpper Valley Medical CenterWBC (Bld) [#/Vol]NOT REPORTEDThe [facility] Hospital HealthComprehensive Metabolic Panel w/ Reflex to MGon [id number] [Mass/Vol]4.2 g/dL3.5 - 5.2 g/dLUpper Valley Medical Center Albumin/Globulin [Mass ratio]1.6 {ratio}[facility] CenterALP (Bld) [Catalytic activity/Vol]66 U/L35 - 104 U/LMercy HealthALT [Catalytic activity/Vol]16 U/L5 - 33 U/LMercy HealthAnion gap [Moles/Vol]19 mmol/LHigh9 - 17 mmol/LMercy HealthAST [Catalytic activity/Vol]26 U/L<32[facility] HealthBilirubin [Mass/Vol]mg/dLLow0.3 - 1.2 mg/dLMercy HealthCalcium [Mass/Vol]9.0 mg/dL8.6 - 10.4 mg/dLUpper Valley Medical Center Chloride [Moles/Vol]105 mmol/L98 - 107 mmol/LMercy HealthCO2 [Moles/Vol]10 mmol/LLow20 - 31 mmol/LMercy HealthCreatinine [Mass/Vol]1.64 mg/dLHigh0.50 - 0.90 mg/dLUpper Valley Medical CenterFree PSA/Total PSA [Mass fraction]6.8 g/dL6.4 - 8.3 g/dL [facility] CenterGFR Sdjmdbpw75 mL/minLow>60Mer HealthGFR Non- Svmxbsdo26 mL/minLow>60[facility] CenterGlucose [Mass/Vol]114 mg/nERhwb13 - 99 mg/dL [facility] CenterInterpretation and review of laboratory resultsAbnormalUpper Valley Medical Center Potassium [Moles/Vol]3.2 mmol/LLow3.7 - 5.3 mmol/LMercy HealthSodium [Moles/Vol] 134 mmol/JBiz450 - 144 mmol/LMercy HealthUrea nitrogen (BldV) [Mass/Vol]30 mg/dL High6 - 20 mg/dLAkron Children'S Hospital HealthUrea nitrogen/Creatinine (Bld) [Mass ratio]18[facility] GlendaleD-Dimer, Quantitativeon [id number]-Dimer, Quant1.34HighUpper Valley Medical CenterComment on above: When combined with a low [...] distal DVT. Interpretation and review of laboratory resultsAbnoOutagamie County Health Center EKG Rhythm Stripon 08-32-4531ZUGRFWOOSTER COMMUNITY HOSPITAL LABUpper Valley Medical Center Ferritinon 08-80-7111Szqxpqml487 ug/LHigh13 - 150 ug/LMsamaritan hospitaly HealthInterpretation and review of laboratory resultsAbnormFroedtert Menomonee Falls [facility]– [place]omonee FallsFibrinogenon 70-86-5414Iocrtcvimy346 mg/dL179 - 518 mg/dLOrthopaedic Hospital of Wisconsin - GlendaleLACTATE DEHYDROGENASEon 19-90-6210HB793 U/L135 - 214 U/LMsamaritan hospitaly HealthComment on above: HEMOLYSIS PRESENT AND MAY AFFECT LD RESULTUpper Valley Medical CenterLaboratory - Chemistry and Chemistry - challengeon 97-84-3046TGF/1.73 sq M.predicted MDRD (S/P/Bld) [Vol rate/Area][facility] Valley Medical CenterComment on above:Average GFR for 50-59 years old: 93 mL/min/1.73sq m Chronic Kidney Disease: <60 mL/min/1.73sq m Kidney failure: <15 mL/min/1.73sq m eGFR calculated using average adult body mass. Additional eGFR calculator available at: http://www.[employer]/multiple_crcl_2012.htm Stage 1: Some kidney damage normal GFR Stage 2: Mild kidney damage GFR 60-89 Stage 3: Moderate kidney damage GFR 30-59 Stage 4: Severe kidney damage GFR 15-29 Stage 5: Severe kidney damage GFR <15 ESRD - chronic treatment by dialysis or transplant Magnesiumon 33-26-2341Dnvnnreql [Mass/Vol]1.9 mg/dL1.6 - 2.6 mg/dLBarney Children'S [facility] Center HealthMicroscopic Urinalysison 06-15-2021-[facility] CenterAmorphous, UANOT REPORTEDNoneMercy HealthBacteria, UANOT REPORTEDNoneMercy HealthCasts UANOT REPORTED/LPFMercy HealthCrystals, UANOT REPORTEDNone /HPFMercy HealthEpithelial Cells UA10 TO 20Mercy HealthMucus, UANOT REPORTEDNoneMercy HealthOther Observations UANOT REPORTEDNOT REQ.[facility]cy HealthRBC, UA0 TO 2Mercy HealthRenal Epithelial, UANOT REPORTED0 /HPFMercy HealthTrichomonas, UANOT REPORTEDNoneMercy HealthWBC, UA0 TO 2Mercy HealthYeast, UANOT REPORTEDNoneMercy HealthMercy HealthUrinalysis Reflex to Cultureon 07-66-5078Eyypfqhbp UrineNegativeNEGATIVE [facility] HealthColor, UAYellowYellowMercy HealthGlucose, UrNegativeNEGATIVEMercy HealthInterpretation and review of laboratory resultsAbnormalMercy HealthKetones Ql (U)2+AbnormalNEGATIVEMercy HealthLeukocyte esterase Test strip Ql (U) NegativeNEGATIVEMercy HealthNitrite, UrineNegativeNEGATIVEMercy HealthpH, UA6.0 [facility] HealthProtein, UA1+AbnormalNEGATIVEMercy HealthSpecific Solgohachia, UA1.015 [facility]cy HealthTurbidity UAClearClearMercy HealthUrinalysis CommentsNOT REPORTED Mercy HealthUrine HgbTRACEAbnormalNEGATIVEMercy HealthUrobilinogen, UrineNormal NormalMercy HealthMercy HealthAmylaseon 04-66-2385Duejfot [Catalytic activity/Vol]59 U/L28 - 100 U/LMercy HealthCBC Auto Differentialon 06-14-2021 Absolute Eos #<0.03Mercy HealthAbsolute Immature Granulocyte0.04[facility] Absolute Lymph #0.80LowMercy HealthAbsolute [place] #0.39Mercy HealthBasophils (Bld) [#/Vol]10*3/uLMercy HealthBasophils/100 WBC (Bld)1 %0 - 2 %[facility] Differential TypeNOT REPORTEDMercy HealthEosinophils/100 WBC (Bld)0 %Low1 - 4 % Mercy HealthHematocrit (Bld) [Volume fraction]49.7 %High36.3 - 47.1 %Mercy HealthHemoglobin.gastrointestinal spec 1 Ql (Stl)16.9 g/sFNdgk69.9 - 15.1 g/dL Mercy HealthImmature granulocytes/100 WBC (Bld)1 %Yiqz9Yamhd Health Interpretation and review of laboratory resultsAbnoProvidence Hospital Lymphocytes/100 WBC (Bld)19 %Low24 - 43 %[facility] HospitalH (RBC) [Entitic mass] 30.1 pg25.2 - 33.5 pgTriHealth Bethesda Butler HospitalHC (RBC) [Mass/Vol]34.0 g/dL28.4 - 34.8 g/dL [facility] HospitalV (RBC) [Entitic vol]88.6 fL82.6 - 102.9 fLUpper Valley Medical Center Monocytes/100 WBC (Bld)9 %3 - 12 %[facility] Medical CenterNRBC Automated0.00.0 per 100 WBC [facility] CenterPlatelet distribution width (Bld) [Ratio]13.5 %11.8 - 14.4 %[facility] CenterPlatelet EstimateNOT REPORTEDUpper Valley Medical CenterPlatelet mean volume (Bld) [Entitic vol]10.0 fL8.1 - 13.5 fLUpper Valley Medical CenterPlatelets (Bld) [#/Vol]256 10*3/uL [facility] CenterRBC (Bld) [#/Vol]5.61 10*6/uLHigh3.95 - 5.11 m/uLUpper Valley Medical CenterRBC (Bld) [#/Vol]NOT REPORTEDUpper Valley Medical CenterSegmented neutrophils/100 WBC (Bld)70 %High 36 - 65 %[facility] CenterSegs Absolute3.00[facility] CenterWBC (Bld) [#/Vol]4.3 10*3/uL [facility] CenterWBC (Bld) [#/Vol]NOT REPORTEDOrthopaedic Hospital of Wisconsin - GlendaleCOVID-19, Rapid on 13-56-0025Acjrowyvezujbz and review of laboratory resultsAbOhioHealth Berger Hospital SARS-CoV-2 (COVID-19) RNA KAYLEEN+probe Ql (Unsp spec)DetectedAbnormalNot Detected [facility] Hospitalment on above: Rapid NAAT: The specimen is [...] this assay. Fact sheet for Healthcare Providers: https://www.fda.gov/media/983634/download Fact sheet for Patients: https://www.fda.gov/media/813406/download Methodology: Isothermal Nucleic Acid Amplification Results reported to the appropriate Health Department Specimen Description.NASOPHARYNGEAL SWABMercy [facility]rium [facility] Mountain Island HealthCT ABDOMEN PELVIS W IV CONTRAST Additional Contrast? Radiologist Recommendationon [id number]-defined small ground-glass parenchymal opacity in the right lower lobe is nonspecific, this could reflect infection, pneumonia or atelectasis. Correlate clinically. Follow-up CT chest in 6-8 weeks would be recommended after appropriate therapy has been administered to ensure resolution. Small hiatus hernia and patulous distal esophagus. Esophagitis/GERD could be considered. Otherwise, no acute process in the abdomen or pelvis. [facility] RIS CONSOLIDATEDEXAMINATION: CT OF THE ABDOMEN AND PELVIS WITH [...] ascites. Bones/Soft Tissues: No acute osseous abnormality. MHPN Katrin Mejias MD - 06/14/2021 EXAMINATION: CT OF THE [...] acute process in the abdomen or pelvis. [employer] Phone: radiology Study observation (narrative)[employer] Phone: cT ABDOMEN PELVIS W IV CONTRAST Additional Contrast? Radiologist RecommendationOrdered By: Katrin Rich on 74-87-4637[facility] Work Phone: CT Head WO Contraston . No acute intracranial abnormality. 2. Air-fluid level in the left maxillary sinus, possibly indicating sinusitis. [facility] CONSOLIDATEDEXAMINATION: CT OF THE HEAD WITHOUT CONTRAST, 06/14/2021 [...] of the visualized skull or soft tissues. [facility] Sonya Figueroa, DO - 06/14/2021 EXAMINATION: CT OF THE [...] the left maxillary sinus, possibly indicating sinusitis. [employer] Work Phone: radiology Study observation (narrative)[employer] Phone: cT Head WO ContrastOrdered By: Sonya Vences on 57-98-1996[facility] Work Phone: Comprehensive Metabolic Panel w/ Reflex to MGon [id number] [Mass/Vol]5.2 g/dL3.5 - 5.2 g/dLMercy HealthAlbumin/Globulin [Mass ratio]1.2 {ratio}RapportALP (Bld) [Catalytic activity/Vol]90 U/L35 - 104 U/LMercy HealthALT [Catalytic activity/Vol]23 U/L5 - 33 U/LMercy HealthAnion gap [Moles/Vol]28 mmol/LHigh9 - 17 mmol/LMercy HealthAST [Catalytic activity/Vol]41 U/LHigh<32Mercy HealthComment on above:HEMOLYSIS PRESENT MAY AFFECT AST RESULTBilirubin [Mass/Vol]0.21 mg/dLLow0.3 - 1.2 mg/dLMercy Health Calcium [Mass/Vol]10.0 mg/dL8.6 - 10.4 mg/dLMercy HealthChloride [Moles/Vol]94 mmol/LLow98 - 107 mmol/LMercy HealthCO2 [Moles/Vol]10 mmol/LLow20 - 31 mmol/L [facility] HospitalBrightQubeCreatinine [Mass/Vol]2.03 mg/dLHigh0.50 - 0.90 mg/dLMercy HealthFree PSA/Total PSA [Mass fraction]9.5 g/dLHigh6.4 - 8.3 g/dLMercy HealthGFR Fymicjnx10 mL/minLow>60Mercy HealthGFR Non- Vbyatwmx06 mL/minLow>60Mercy HealthGlucose [Mass/Vol]119 mg/mSIjeb05 - 99 mg/dLMercy HealthInterpretation and review of laboratory resultsAbnormalMer HealthPotassium [Moles/Vol]3.8 mmol/L 3.7 - 5.3 mmol/LMercy HealthSodium [Moles/Vol]132 mmol/YFme513 - 144 mmol/LMercy HealthUrea nitrogen (BldV) [Mass/Vol]34 mg/dLHigh6 - 20 mg/dLAkron Children'S Hospital HealthUrea nitrogen/Creatinine (Bld) [Mass ratio]17Mer Xtelligent MediaPremier Health Miami Valley HospitalSignicast HealthEKG 12 Lead Ordered By: Susana Baumann on 25-09-0617Nwaehc Awwr857HSJFibju Health Work Phone: P-R Ddclgswg316 [employer] Work Phone: Q-T Ymhphnms719 [employer] Work Phone: QRS Vgswaiaw60 [employer] Work Phone: QTc Calculation (Bazett)630 [employer] Work Phone: R Vqrg9ysrdtwhPfsfm Health Work Phone: T Ykwp3rmutlhpTgdga Health Work Phone: Ventricular Sieg393KKCAsvzs Health Work Phone: MerAdNectar Work Phone: EKG 12 Leadon 74-93-6888Megtq tachycardia with short ID with Premature supraventricular complexes Septal infarct , age undetermined ST & T wave abnormality, consider anterolateral ischemia Prolonged QT Abnormal ECG No previous ECGs available Confirmed by SUSANA BAUMANN ([id number]) on 06/14/2021 8:29:37 PMCOX MONETT RADIOLOGYSusana babcock MD - 06/14/2021 Sinus tachycardia with short ID with Premature supraventricular complexes Septal infarct , age undetermined ST & T wave abnormality, consider anterolateral ischemia Prolonged QT Abnormal ECG No previous ECGs available Confirmed by SUSANA BAUMANN ([id number]) on 06/14/2021 8:29:37 PMAkron Children'S Hospital [employer] Work Phone: Glucose, Whole Bloodon 38-64-8058Eosziou [Mass/Vol]117 mg/aVRsfr90 - 100 mg/dLUpper Valley Medical CenterInterpretation and review of laboratory resultsAbnormalOrthopaedic Hospital of Wisconsin - GlendaleLaboratory - Chemistry and Chemistry - challengeon 36-26-4239AWE/1.73 sq M.predicted MDRD (S/P/Bld) [Vol rate/Area] [facility] on above:Average GFR for 50-59 years old: 93 mL/min/1.73sq m Chronic Kidney Disease: <60 mL/min/1.73sq m Kidney failure: <15 mL/min/1.73sq m eGFR calculated using average adult body mass. Additional eGFR calculator available at: http://www.[employer]/multiple_crcl_2012.htm Stage 1: Some kidney damage normal GFR Stage 2: Mild kidney damage GFR 60-89 Stage 3: Moderate kidney damage GFR 30-59 Stage 4: Severe kidney damage GFR 15-29 Stage 5: Severe kidney damage GFR <15 ESRD - chronic treatment by dialysis or transplant Lactic Acidon 76-54-5789Vnjapsw [Moles/Vol]1.4 mmol/L0.5 - 2.2 mmol/LMercy [facility] Island HealthLipaseon 41-97-2629Iluncwyhlgohgm and review of laboratory resultsAbnoProvidence HospitalLipase [Catalytic activity/Vol]101 U/LHigh13 - 60 U/L [facility] Panel Informationon 39-55-2806Nmswc HealthPOCT glucoseOrdered By: Desiree Fajardo on 46-19-9935Qunuomj [Mass/Vol]117 mg/dLUpper Valley Medical Center Interpretation and review of laboratory resultsNoProvidence HospitalQC OK?yesThe [facility] HealthTroponinon 82-86-2878Hhjtilot InterpNOT REPORTEDUpper Valley Medical Center Troponin TNOT REPORTED<0.03 ng/mLHolzer Medical Center – Jacksonnin, High Pndgjeglimo40 ng/L0 - 14 ng/LMKettering Health HamiltonCombeaumont hospital on above: High Sensitivity Troponin values cannot be compared with other Troponin methodologies. Patients with high levels of Biotin oral intake (i.e >5mg/day) may have falsely decreased Troponin levels. Samples collected within 8 hours of biotin intake may require additional information for diagnosis. [facility] Medical CenterXR CHEST PORTABLEon 76-25-6564Dzvvo right lower lobe consolidation concerning for pneumonia. MHPN RIS CONSOLIDATEDEXAMINATION: ONE XRAY VIEW OF THE CHEST 06/14/2021 4:34 pm COMPARISON: None. HISTORY: ORDERING SYSTEM PROVIDED HISTORY: cough TECHNOLOGIST PROVIDED HISTORY: cough FINDINGS: Cardiomediastinal silhouette within normal limits. Focal right lower lobe consolidation. No definite effusion. No pneumothorax or subdiaphragmatic free air. No acute osseous abnormality identified. MHPN RIS Brian Gómez MD - 06/14/2021 EXAMINATION: ONE XRAY VIEW OF THE CHEST 06/14/2021 4:34 pm COMPARISON: None. HISTORY: ORDERING SYSTEM PROVIDED HISTORY: cough TECHNOLOGIST PROVIDED HISTORY: cough FINDINGS: Cardiomediastinal silhouette within normal limits. Focal right lower lobe consolidation. No definite effusion. No pneumothorax or subdiaphragmatic free air. No acute osseous abnormality identified. IMPRESSION: Focal right lower lobe consolidation concerning for pneumonia. [employer] Phone: radiology Study observation (narrative)[employer] Phone: XR CHEST PORTABLEOrdered By: Brian England on 59-38-7804PuhthFrogmetrics Phone: Vital Signs Date TimeVital SignValuePerforming XwtoqmyxqHnngvcnl15-37-0462 14:14-0400Body hxbcos473.72 Elie Yeboah FLOOR SANDER-C Work Phone: [facility]09-29-2025 14:14-0400 Body mass index (BMI) [Ratio]23.9 kg/m2Minda Mcmanusdepartment of veterans affairs medical center-lebanonprimitivo FLOOR SANDER-C Work Phone: [facility]09-29-2025 14:14-0400 Body rjxyewcglll01.6 [degF]Minda Edilia FLOOR SANDER-C Work Phone: [facility]09-29-2025 14:14-0400 Body elvani22.32 kgMinda Mcmanusdepartment of veterans affairs medical center-lebanonprimitivo FLOOR SANDER-C Work Phone: [facility]09-29-2025 14:14-0400 Diastolic blood ucjjladj94 mm[Hg]Minda Yonathanhholz FLOOR SANDER-C Work Phone: [facility]09-29-2025 14:14-0400 Heart nzda047 /minLisa Aichholz FLOOR SANDER-C Work Phone: [facility]09-29-2025 14:14-0400 Respiratory rate20 /minLisa Aichholz FLOOR SANDER-C Work Phone: [facility]09-29-2025 14:14-0400 SaO2% (BldA) [Mass fraction]97 %Minda Aichholz FLOOR SANDER-C Work Phone: [facility]09-29-2025 14:14-0400 Systolic blood engfraug470 mm[Hg]Minda Yonathanhholz FLOOR SANDER-C Work Phone: [facility]07-28-2025 14:46-0400 Body mass index (BMI) [Ratio]28.07 kg/m2Lisa Aichholz FLOOR SANDER Work Phone: [facility] CenterPhlxzfdsqf28-66-0848 14:46-0400Body temperature 98.29 [degF]Minda Yonathanhholz FLOOR SANDER Work Phone: [facility] CenterIevlarnndb65-04-4409 14:46-0400Body ytimzz18.28 kgLisa Aichholz FLOOR SANDER Work Phone: [facility] CenterRicmzilohu43-42-1934 14:46-0400Diastolic blood uqobgjxs31 mm[Hg]Minda Yonathanhholz FLOOR SANDER Work Phone: [facility] CenterLshvlpjvbq92-24-0121 14:46-0400Heart rgfi770 /min Minda Aichholz FLOOR SANDER Work Phone: [facility] CenterRarpxjbewb86-18-2194 14:46-0400Respiratory rate20 /minLisa Aichholz FLOOR SANDER Work Phone: [facility] CenterSawsvuhxcn62-93-3627 14:46-2238IeY2% (BldA) [Mass fraction]95 %Minda Aichholz FLOOR SANDER Work Phone: [facility] CenterZimjoethtr75-58-3088 14:46-0400Systolic blood zgukmsff257 mm[Hg]Minda Ahmadiz FLOOR SANDER Work Phone: [facility] CenterUnlhboljui74-97-5546 13:06-0400Body mass index (BMI) [Ratio]29.88 kg/m2Izzysa Daianaz FLOOR SANDER Work Phone: [facility] CenterQzertjhlsj45-78-0388 13:06-0400Body temperature 98.1 [degF]Minda Daianaz FLOOR SANDER Work Phone: [facility] CenterVjmtsvyhqi07-15-1291 13:06-0400Body fnwact88.55 kgLisa Ahmadiz FLOOR SANDER Work Phone: [facility] CenterHcausqrwce12-43-1640 13:06-0400Diastolic blood mm[Hg]Minda Ahmadiz FLOOR SANDER Work Phone: [facility] CenterViffwejlpx00-39-7895 13:06-0400Heart stav498 /min Minda Daianaz FLOOR SANDER Work Phone: [facility] CenterOpefzilppu76-22-5032 13:06-0400Respiratory rate20 /minLisa Ahmadiz FLOOR SANDER Work Phone: [facility] CenterOlplvgmalj16-58-0728 13:06-2914GtR0% (BldA) [Mass fraction]99 %Minda Ahmadiz FLOOR SANDER Work Phone: [facility] CenterWybfsyjgds72-98-7772 13:06-0400Systolic blood mm[Hg]Minda Rupertoholz FLOOR SANDER Work Phone: [facility] CenterXhjuxiufxk37-84-4015 16:00-0400Body mass index (BMI) [Ratio]31.51 kg/m2Izzysa Rupertoholz FLOOR SANDER Work Phone: [facility] CenterWarzupaqih61-95-2204 16:00-0400Body temperature 97.81 [degF]Minda Daianaz FLOOR SANDER Work Phone: [facility] CenterWuiwgnofcb59-71-4790 16:00-0400Body .26 kgMinda Yeboah FLOOR SANDER Work Phone: [facility] CenterHfwnmhudpq02-17-5771 16:00-0400Diastolic blood clyvvgwk21 mm[Hg]Minda Yeboah FLOOR SANDER Work Phone: [facility] CenterZvkzwkvwgf14-42-3486 16:00-0400Heart rate86 /min Minda Yeboah FLOOR SANDER Work Phone: [facility] CenterQppcqiqkpu89-50-1278 16:00-0400Respiratory rate19 /minMinda Yeboah FLOOR SANDER Work Phone: [facility] CenterNakjbrszuj94-90-2630 16:00-7829JmF1% (BldA) [Mass fraction]98 %Minda Yeboah FLOOR SANDER Work Phone: [facility] CenterHucdckgnwx09-86-3249 16:00-0400Systolic blood meajymuu949 mm[Hg]Minda Yeboah FLOOR SANDER Work Phone: [facility] CenterHryxudtkon14-17-8634 12:42-0400Body etbrbo815.2 Agata Szymanski MD Work Phone: [phone])[address]03-20-2025 12:42-0400Body mass index (BMI) [Ratio]32.89 kg/m2Cristian Szymanski MD Work Phone: [phone])953-[address] [place], [place] [address]831903-20-2025 12:42-0400Body nomila04.25 Shonna Szymanski MD Work Phone: [phone])[address]03-20-2025 12:42-0400 Respiratory rate16 /minCristian Szymanski MD Work Phone: 1(097)[address]01-20-2025 13:59-0500Body aopfhf586.2 Agata Szymanski MD Work Phone: [phone] [place], [place] [address]831901-20-2025 13:59-0500Body mass index (BMI) [Ratio]28.98 kg/m2Cristian Szymanski MD Work Phone: [phone] [place], [place] 3895101-20-2025 13:59-0500Body yxjtlr44.92 kgCristian Szymanski MD Work Phone: [phone] [place], [place] [address]831901-20-2025 13:59-0500Diastolic blood axxgxyda11 mm[Hg]Cristian Szymanski MD Work Phone: [phone]01-20-2025 13:59-0500Heart rate 58 /minCristian Szymanski MD Work Phone: [phone])445-[address] [place], [place] [address]83[address]01-20-2025 13:59-0500 Respiratory rate18 /minCristian Szymanski MD Work Phone: [phone]01-20-2025 13:59-0500Systolic blood ocmnirlq836 mm[Hg]Cristian Szymanski MD Work Phone: [phone])[address]12-05-2024 13:57-0500Body .2 Santoshisa Edilia FLOOR SANDER Work Phone: [facility] CenterBemmbnulsw65-30-1701 13:57-0500Body mass index (BMI) [Ratio]29.44 kg/m2Lisa Edilia FLOOR SANDER Work Phone: [facility] CenterTydxfdeaiz33-12-6497 13:57-0500Body temperature 98.1 [degF]Minda Edilia FLOOR SANDER Work Phone: [facility] CenterIcwkcylcfj98-55-4444 13:57-0500Body .28 kgLisa Edilia FLOOR SANDER Work Phone: [facility] CenterHvbtjapmoi44-03-3589 13:57-0500Diastolic blood vpinbyxh38 mm[Hg]Minda Edliia FLOOR SANDER Work Phone: [facility] CenterLvlnzolrki88-97-9712 13:57-0500Heart rate96 /min Minda Edilia FLOOR SANDER Work Phone: [facility] CenterShqiwfzgug39-60-2795 13:57-0500Respiratory rate18 /minLisa Edilia FLOOR SANDER Work Phone: [facility] CenterJivqdjgnad43-35-0150 13:57-8191LlA9% (BldA) [Mass fraction]98 %Minda Yeboah FLOOR SANDER Work Phone: [facility] CenterFzakvacumc97-04-5002 13:57-0500Systolic blood ovoshymh526 mm[Hg]Minda Daianaz FLOOR SANDER Work Phone: [facility] CenterIealeiwunb61-39-4390 14:03-0500Body ejsawc750.2 cmLisa Rupertogailz FLOOR SANDER Work Phone: [phone] [place], [place] [address]Jqglenebbr62-17-2700 14:03-0500Body mass index (BMI) [Ratio]29.98 kg/m2Izzysa Daianaz FLOOR SANDER Work Phone: [phone] [place], [place] [address]Fyljfgonca96-81-0333 14:03-0500Body temperature 98.1 [degF]Minda Hickeygailz FLOOR SANDER Work Phone: [phone] [place], [place] [address]Jfawurabfd07-12-4697 14:03-0500Body .82 kgLisa Ahmadiz FLOOR SANDER Work Phone: [facility] CenterBnvvszalkv09-77-0388 14:03-0500Diastolic blood kqepmihh88 mm[Hg]Minda Ahmadiz FLOOR SANDER Work Phone: [facility] CenterNiordmehmm56-89-6786 14:03-0500Heart rate97 /min Minda Rupertogailz FLOOR SANDER Work Phone: [facility] CenterJuntpfdarb61-56-1288 14:03-0500Respiratory rate18 /minLisa Ahmadiz FLOOR SANDER Work Phone: [facility] CenterTstpphgoyn88-00-9073 14:03-5874IlM2% (BldA) [Mass fraction]97 %Minda Ahmadiz FLOOR SANDER Work Phone: [facility] CenterHesuguntjx03-65-7202 14:03-0500Systolic blood psywmpbw001 mm[Hg]Minda Rupertogailz FLOOR SANDER Work Phone: [phone] [place], [place] [address]Sysftweyuq73-93-1304 17:23-0400Body kludbs758.2 Santoshisa Edilia FLOOR SANDER Work Phone: [facility] CenterHjrulrjxyc60-10-0795 17:23-0400Body mass index (BMI) [Ratio]28.69 kg/m2Izzysa Daianaz FLOOR SANDER Work Phone: noChildren's Mercy HospitalDxyheradaw13-64-9292 17:23-0400Body temperature 97.5 [degF]Minda Yeboah FLOOR SANDER Work Phone: [facility] CenterTvcyklbhbm98-23-3594 17:23-0400Body ycaitk49.1 kg Minda Yeboah FLOOR SANDER Work Phone: [facility] CenterWvvpbylzro43-40-2177 17:23-0400Diastolic blood hlfblffu11 mm[Hg]Minda Ahmadiz FLOOR SANDER Work Phone: [facility] CenterTfcvfnblls40-24-3338 17:23-0400Heart rate71 /min Minda Edilia FLOOR SANDER Work Phone: [place] [address]Nldxkhsont97-34-1194 17:23-0400Respiratory rate18 /minLisa Yeboah FLOOR SANDER Work Phone: [facility] CenterFckmglbpiu57-26-7339 17:23-8781XjZ2% (BldA) [Mass fraction]94 %Minda Yeboah FLOOR SANDER Work Phone: [facility] CenterWuaqplwppr91-12-9257 17:23-0400Systolic blood wyanaqgn302 mm[Hg]Minda Ahmadiz FLOOR SANDER Work Phone: [facility] CenterYuxixjrmki52-62-1882 13:17-0400Body uhrmby569.2 Santoshisa Daianaz FLOOR SANDER Work Phone: [place] [address]Ygasmaogxu97-34-1719 13:17-0400Body mass index (BMI) [Ratio]29.6 kg/m2Izzysa Daianaz FLOOR SANDER Work Phone: [place] [address]Wlyvqpmbsw48-04-4864 13:17-0400Body temperature 97.81 [degF]Minda Ahmadiz FLOOR SANDER Work Phone: [facility] CenterTayxqsufhw08-56-5495 13:17-0400Body .73 kgLisa Yeboah FLOOR SANDER Work Phone: [facility] CenterLxfdgbjsxk57-50-3913 13:17-0400Diastolic blood mm[Hg]Minda Ahmadiz FLOOR SANDER Work Phone: [facility] CenterMsvtnpfqup08-32-4178 13:17-0400Heart ihin748 /min Minda Daianaz FLOOR SANDER Work Phone: [facility] CenterSnuqopznuj39-08-1675 13:17-0400Respiratory rate18 /minLisa Rupertoholz FLOOR SANDER Work Phone: [facility] CenterXnqzwfpkze93-94-3249 13:17-3002ScO4% (BldA) [Mass fraction]100 %Minda Ahmadiz FLOOR SANDER Work Phone: [facility] CenterDankcspuvk26-95-6927 13:17-0400Systolic blood zetmnfqu768 mm[Hg]Minda Yeboah FLOOR SANDER Work Phone: [facility] CenterSmwkisyedy04-69-3781 12:33-0500Body lfmnau071.2 Agata Szymanski MD Work Phone: [phone]-[facility]01-30-2024 12:33-0500Body mass index (BMI) [Ratio]31.16 kg/m2Cristian Szymanski MD Work Phone: [facility]01-30-2024 12:33-0500Body qjrhmo89.27 kgCristian Szymanski MD Work Phone: [phone] [place], [place] [address]01-30-2024 12:33-0500Diastolic blood mbhsgobr71 mm[Hg]Cristian Szymanski MD Work Phone: [facility]01-30-2024 12:33-0500 Respiratory rate18 /minCristian Szymanski MD Work Phone: [facility]01-30-2024 12:33-0500Systolic blood kayvapny140 mm[Hg]Cristian Szymanski MD Work Phone: [facility]12-19-2022 13:58-0500Diastolic blood mm[Hg]Oral Land Degradation Analyst Work Phone: [phone]4442CrpkyDfdmmk06-47-2330 13:58-0500Heart rtlw017 /minOral Land Degradation Analyst Work Phone: [phone]mpxLsqsln26-78-6832 13:58-0500Respiratory rate18 /minOral Land Degradation Analyst Work Phone: [phone]iehKnndof97-34-0939 13:58-3063GgS7% (BldA) [Mass fraction]100 %[employer]st Work Phone: [phone]qPazuem30-73-3637 13:58-0500Systolic blood jpcfedwa290 mm[Hg][employer] Work Phone: [phone]pUpslof82-66-8503 08:10-0400Respiratory rate18 /Loco Deng MD Work Phone: [phone]10-27-2022 07:15-0400Body xjudlcinoye03.1 [degF]Janeth Deng MD Work Phone: [phone]10-27-2022 07:15-0400Diastolic blood gijxzsyo17 mm[Hg]Janeth Deng MD Work Phone: [phone]10-27-2022 07:15-0400Heart rate65 /Loco Deng MD Work Phone: [phone]10-27-2022 07:15-5120JkM4% (BldA) [Mass fraction]98 %Janeth Deng MD Work Phone: [phone]10-27-2022 07:15-0400Systolic blood thucmjls771 mm[Hg]Janeth Deng MD Work Phone: [phone]10-25-2022 11:15-0400Body ukjfyy892.2 eDlon Deng MD Work Phone: [phone]10-25-2022 11:15-0400Body mass index (BMI) [Ratio]25.84 kg/t4NfhfoeJaneth Deng MD Work Phone: [facility]10-25-2022 11:15-0400Body okxclr38.84 kgJaneth Deng MD Work Phone: [facility]10-25-2022 09:00-0400Heart rate99 /minAngie Valles MD Work Phone: [facility]-25-2022 09:00-0400 Respiratory rate21 /Billy Vallse MD Work Phone: [phone] [address]-25-2022 08:15-0400Diastolic blood upbjdgdq54 mm[Hg]Angie Valles MD Work Phone: [facility]10-25-2022 08:15-0400Systolic blood ioxurere454 mm[Hg]Angie Valles MD Work Phone: [facility]-25-2022 03:30-3938ShY1% (BldA) [Mass fraction]96 %Angie Valles MD Work Phone: [facility]-24-2022 22:41-0400Body oqwudsyezqi08.6 [degF]Angie Valles MD Work Phone: [facility]-19-2021 06:43-0500Body ueikdznpikm98.39 [degF]Benito Oneal MD Work Phone: [place] [address]Sommzd16-05-2813 06:43-0500Diastolic blood voqbfdoc05 mm[Hg]Benito Oneal MD Work Phone: [place] [phone] 06:43-0500Heart rate58 /Jenaro Oneal MD Work Phone: [place] [phone] 06:43-0500Respiratory rate16 /minBenito Oneal MD Work Phone: [place] [address]Vnlecl92-96-3882 06:43-7813OxZ2% (BldA) [Mass fraction]98 %Benito Oneal MD Work Phone: [facility]gg[facility]4213 06:43-0500Systolic blood ldzadgxb716 mm[Hg]Benito Oneal MD Work Phone: [facility] CenterNiqeyj58-19-6455 05:15-0500Body mass index (BMI) [Ratio]25.48 kg/m2Benito Oneal MD Work Phone: [facility] CenterHzllrl06-27-5722 05:15-0500Body ezvsuj13.8 kg Benito Oneal MD Work Phone: [place] [phone] 06:42-0500Body nylhkg978.2 cm Benito Oneal MD Work Phone: [facility] Health Encounters Encounter DateEncounter TypeCare ProviderFacilityStart: 05-14-2025 End: 02-17-4191wigcsranilTbsrwoJeannine Duque MDFacility:[facility] Start: 04-28-2025 End: 67-87-3481cfvtinowacXepbBarbara Yeboah NP-Jessi Work Phone: [facility] Work Phone: Start: 04-28-2025 End: 39-84-0462Vyzfpdi encounter Adelaida Yeboah NP-C-[facility] Zack Work Phone: Start: 04-09-2025 End: 01-76-3287VzgrcjHqe Amin MD Work Phone: [facility] RheumatologyStart: 04-03-2025 End: 23-91-0892irytuebskqIjrbogob Talal SarminiFacility:[facility]tart: 04-03-2025 End: 77-21-9307Lvcmiti encounter procedureMuhammad Talal Saundramini [phone]-RboxhAshtabula [facility] Start: 03-21-2025 End: 12-89-8783kxevkkmpuaCkbrpnnm Talal SarminiFacility:Asad DHStart: 03-21-2025 End: 43-86-7595Uxdzcrh encounter procedureSaumya Pulido [phone]-KftvlAshtabula General Hospital [facility] Start: 02-24-2025 End: 83-54-3267Ibazck outpatient visit 25 Major Yeboah FLOOR SANDER Work Phone: noms CWM FMComment on above:Osteoarthritis of spine with radiculopathy, lumbosacral region (Primary Dx); Seizures (HCC); THOMAS (obstructive sleep apnea); Gastroesophageal reflux disease, unspecified whether esophagitis present; Hematemesis, unspecified whether nausea present; Cigarette nicotine dependence without complication; MARY (generalized anxiety disorder) ; Mild episode of recurrent major depressive disorder ; Polyp of colon, unspecified part of colon, unspecified type; Major depressive disorder with single episode, in remission ; Constipation, unspecified constipation type; Weight loss; Rheumatoid arthritis with positive rheumatoid factor, involving unspecified site (HCC)Start: 02-24-2025 End: 50-46-5371fzjcmhguzvBEER AICHHOLZNot AvailableStart: 01-29-2025 End: 45-06-0578dvonlprftrEyqabysp Talal SarminiFacility:FTMCStart: 01-29-2025 End: 96-26-5117Cqqskqo encounter procedureMumeena Pulido [facility] Start: 01-22-2025 End: 08-67-6034Tdhnrr OnlyMinda Yeboah FLOOR SANDER Work Phone: noms CWM FMComment on above:Rheumatoid arthritis with positive rheumatoid factor, involving unspecified site (HCC) (Primary Dx)Start: 01-13-2025 End: 25-58-8968Yuyfpz flowsheetMinda Yeboah FLOOR SANDER Work Phone: noms CWM FMStart: 01-13-2025 End: 47-96-3548Olnhza flowsheetLisa Yonathanhholprimitivo FLOOR SANDER Work Phone: noms CWM FMStart: 01-13-2025 End: 77-30-6814pluzhqrmrvBKGV AICHHOLLEEot AvailableStart: 01-13-2025 End: 81-02-1386Ikzxho outpatient visit 25 minutesLisa Yeboah FLOOR SANDER Work Phone: noms CWM FMComment on above:Hematemesis, unspecified whether nausea present (Primary Dx); Gastroesophageal reflux disease, unspecified whether esophagitis present; Obesity with body mass index (BMI) of 30.0 to 39.9; Cigarette nicotine dependence without complication; Rheumatoid arthritis with positive rheumatoid factor, involving unspecified site (HCC)Start: 01-09-2025 End: 70-79-6028HemjwjAvvn Aichholz FLOOR SANDER Work Phone: noms CWM FMComment on above:Gastroesophageal reflux disease, unspecified whether esophagitis presentStart: 01-07-2025 End: 58-27-2519Gjbjycfiw Result EncounterLisa Rupertoholz FLOOR SANDER Work Phone: noms External Department UnsolicitedStart: 01-07-2025 End: 51-75-2663Admiusujr Result EncounterLisa Rupertoholz FLOOR SANDER Work Phone: noms External Department UnsolicitedStart: 01-02-2025 End: 89-14-9701Aiwxrajck Result EncounterLisa Rupertoholz FLOOR SANDER Work Phone: noms External Department UnsolicitedStart: 01-02-2025 End: 56-28-7175Fayxvrxwi Result EncounterLisa Rupertoholz FLOOR SANDER Work Phone: noms External Department UnsolicitedStart: 01-02-2025 End: 71-45-2707khdqndnflkDelxayhs Talal WilneriFacility:Asad DHStart: 01-02-2025 End: 14-59-2673Xbicook encounter procedureMuhammad Talal Wilneri [phone]-EoylgAshtabula General Hospital [facility] Start: 01-01-2025 End: 52-47-2178Gqjeeouou Result EncounterLisa Aichholz FLOOR SANDER Work Phone: noms External Department UnsolicitedStart: 01-01-2025 End: 79-75-6976Tpjkxqaoy Result EncounterLisa Aichholz FLOOR SANDER Work Phone: noms External Department UnsolicitedStart: 12-24-2024 End: 56-99-0309pfwrwbpdhyKktsajku Talal SarminiFacility:Asad DHStart: 12-24-2024 End: 99-71-1340Nliyzog encounter procedureMuhammad Talal Sarmini [phone]-NpaagAshtabula General Hospital [facility] Start: 12-22-2024 End: 08-37-0837AknmwsTpjd Yonathanhholz FLOOR SANDER Work Phone: noms CWM FMComment on above:UTI (urinary tract infection), uncomplicated (Primary Dx)Start: 12-18-2024 End: 70-32-8455cryjofznydMtjw J EdiliaFacility:[facility] Campustart: 12-18-2024 End: 63-57-4089Ijwjcvvj ReferredLisa Rupertoholz Work Phone: [facility] Path Spec [facility] HospStart: 12-18-2024 End: 91-90-6933Vsoaloeju Result EncounterLisa Aichholz FLOOR SANDER Work Phone: noms External Department UnsolicitedStart: 12-18-2024 End: 16-78-3746Bgjjaypal Result EncounterLisa Aichholz FLOOR SANDER Work Phone: noms External Department UnsolicitedStart: 12-18-2024 ambulatoryMuhammad SarminiFacility:Asad DHStart: 12-17-2024 End: 93-19-1920Fuzbje outpatient visit 25 minutesLisa Yonathanhholz FLOOR SANDER Work Phone: noms [facility] FMComment on above:Hematemesis, unspecified whether nausea present (Primary Dx); Gastroesophageal reflux disease, unspecified whether esophagitis present; Rheumatoid arthritis with positive rheumatoid factor, involving unspecified site (CMS/HCC); Cigarette nicotine dependence without complication; Encounter for screening mammogram for malignant neoplasm of breast; Diarrhea, unspecified type; Multiple thyroid nodules (CMS/HCC); Obesity with body mass index (BMI) of 30.0 to 39.9Start: 12-17-2024 End: 72-81-5334Emivdp Bety Yeboah FLOOR SANDER Work Phone: noms [facility] FMComment on above:Multiple thyroid nodules (CMS/HCC) (Primary Dx)Start: 10-17-2024 End: 41-81-5834qhhhirngjmUIB AMINFayette County Memorial Hospitaltart: 10-17-2024 End: 43-00-9483Zaqgxm outpatient visit 25 minutesAli Nessa GRAY Work Phone: [facility] A Department of [facility] SouthComment on above: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); Inflammatory arthritis; Multiple joint pain; Degeneration of intervertebral disc of lumbar region with discogenic back pain; Medication monitoring encounter; DDD (degenerative disc disease), cervicalStart: 10-14-2024 End: 21-55-5014dxywavjtbzLHUJReyna Thrasher AvailableStart: 09-16-2024 End: 05-37-1453GcwemcGbap Aichholz NP Work Phone: noms [facility] FMComment on above:Simple chronic bronchitis (CMS/HCC); Osteoporosis, unspecified osteoporosis type, unspecified pathological fracture presence (CMS/HCC); Major depressive disorder with single episode, in remission (HCC) (CMS/HCC); Mixed hyperlipidemia (CMS/HCC); Vitamin D deficiency; Environmental and seasonal allergies; Hypothyroidism (acquired) (CMS/HCC); Hypomagnesemia; Gastroesophageal reflux disease, unspecified whether esophagitis present; Anxiety and depression (CMS/HCC); MARY (generalized anxiety disorder) (CMS/HCC); Seizures (CMS/HCC)Start: 08-25-2024 End: 78-99-4259YlscrxAwfk Aichholz FLOOR SANDER Work Phone: noms CWM FMComment on above:Simple chronic bronchitis (CMS/HCC)Start: 08-21-2024 End: 51-83-3048Dvcluxrpq department patient visitMINDA Varner EDILIASarah Patton HospitalStart: 08-19-2024 End: 87-63-2758Easrmw outpatient visit 25 Jose Szymanski MD Work Phone: [facility] RheumatologyComment on above: 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); Inflammatory arthritis; Multiple joint pain; Degeneration of intervertebral disc of lumbar region with discogenic back pain; Medication monitoring encounter; DDD (degenerative disc disease), cervicalStart: 08-19-2024 End: 96-37-5300pnksweeeasVTV AMINMercy Healthca Cook HospitalStart: 07-04-2024 End: 12-88-5399Zlcnms outpatient visit 25 Major Yeboah NP Work Phone: noms CWM FMComment on above:Anxiety and depression (CMS/HCC) (Primary Dx); Abnormal weight gain; Tobacco [...] disease, unspecified COPD type (CMS/HCC); Depression with anxietyStart: 07-04-2024 End: 51-58-8435ifqlxwqvinOMIUReyna Thrasher AvailableStart: 06-12-2024 End: 93-71-0038DosxdiSzvm Aichholz FLOOR SANDER Work Phone: noms CWM FMComment on above:Major depressive disorder with single episode, in remission (HCC) (CMS/HCC)Start: 06-05-2024 End: 18-10-5262Jfelbm Angelito Yeboah FLOOR SANDER Work Phone: noms CWM FMStart: 06-05-2024 End: 31-38-3101Ptqnul jenniferLisa Hickeyholz FLOOR SANDER Work Phone: noms CWM FMStart: 06-05-2024 End: 23-75-3717Miuidj outpatient visit 25 minutesLisa Yeboah FLOOR SANDER Work Phone: noms CWM FMComment on above:Abnormal weight gain (Primary Dx); Tobacco user; MARY (generalized anxiety disorder) (CMS/HCC); Obesity with body mass index (BMI) of 30.0 to 39.9; Constipation, unspecified constipation typeStart: 06-05-2024 End: 75-58-2383cekesvpzxcTHVG AICHHOLZNot AvailableStart: 05-24-2024 End: 15-64-2032LqulavSljr Aichholz FLOOR SANDER Work Phone: noms CWM FMComment on above:Vitamin D deficiency; Environmental and seasonal allergiesStart: 04-29-2024 End: 26-38-9978Hdwsuq outpatient visit 25 minutesMinda Yeboah FLOOR SANDER Work Phone: noms CWM FMComment on above:Hypothyroidism (acquired) (CMS/HCC) (Primary Dx); Nonintractable epilepsy without status epilepticus, unspecified epilepsy type (CMS/HCC); Seizures (CMS/HCC); Osteoporosis, unspecified osteoporosis type, unspecified pathological fracture presence (CMS/HCC); Depression with anxiety; MARY (generalized anxiety disorder) (CMS/HCC); Rheumatoid arthritis, involving unspecified site, unspecified whether rheumatoid factor present (CMS/HCC); Tobacco user; Abnormal weight gain; Obesity with body mass index (BMI) of 30.0 to 39.9Start: 04-29-2024 End: 76-19-0436xmwllbdpkvSOJP AICHHOLZNot AvailableStart: 04-29-2024 End: 43-35-7387Nckbty jenniferLisa Yeboah FLOOR SANDER Work Phone: noms CWM FMStart: 04-29-2024 End: 76-57-0814Wobpzw flowsheetLisa Aichholz FLOOR SANDER Work Phone: noms CWM FMStart: 04-25-2024 End: 50-59-2843ApgcoiPxwm Aichholz FLOOR SANDER Work Phone: noms CWM FMComment on above:Osteoporosis, unspecified osteoporosis type, unspecified pathological fracture presence (CMS/HCC) (Primary Dx)Start: 04-03-2024 End: 86-40-6670Dsjqpl OnlyLisa Aichholz FLOOR SANDER Work Phone: noms CWM FMComment on above:Hypothyroidism (acquired) (CMS/HCC) (Primary Dx)Start: 04-02-2024 End: 68-25-0455Zwqzku flowsheetLisa Aichholz FLOOR SANDER Work Phone: noms CWM FMStart: 04-02-2024 End: 17-28-2366Tvdohj flowsheetLisa Aichholz FLOOR SANDER Work Phone: noms CWM FMStart: 04-02-2024 End: 30-21-3051Mvmkopgvt Result EncounterLisa Aichholz FLOOR SANDER Work Phone: noms External Department UnsolicitedStart: 04-02-2024 End: 98-67-4199Wbrrbg outpatient visit 25 minutesLisa Aichholz FLOOR SANDER Work Phone: noms CWM FMComment on above:MARY (generalized anxiety disorder) (CMS/HCC) (Primary Dx); Simple chronic bronchitis (CMS/HCC); Seizures (CMS/HCC); Gastroesophageal reflux disease, unspecified whether esophagitis present; Osteoporosis, unspecified osteoporosis type, unspecified pathological fracture presence (CMS/HCC); Hypothyroidism (acquired) (CMS/HCC); Anxiety and depression (CMS/HCC); Rheumatoid arthritis, involving unspecified site, unspecified whether rheumatoid factor present (CMS/HCC); Tobacco user; Migraine without status migrainosus, not intractable, unspecified migraine type (CMS/HCC); Major depressive disorder with single episode, in remission (HCC) (CMS/HCC); Mixed hyperlipidemia (CMS/HCC); Vitamin D deficiency; Environmental and seasonal allergies; Hypomagnesemia; Osteoarthritis of spine with radiculopathy, lumbosacral regionStart: 04-02-2024 End: 11-12-0067dvdasxclscDOHW AICHHOLZNot AvailableStart: 03-26-2024 End: 21-75-5752JaoznnDoly Aichholz FLOOR SANDER Work Phone: noms CWM FMComment on above:Obesity with body mass index (BMI) of 30.0 to 39.9 (Primary Dx)Start: 03-22-2024 End: 67-61-9237Pwuhlq OnlyMinda Yeboah FLOOR SANDER Work Phone: noms CWM FMComment on above:Hypothyroidism (acquired) (CMS/HCC) (Primary Dx); Mixed hyperlipidemia (CMS/HCC); Hypomagnesemia; Osteoporosis, unspecified osteoporosis type, unspecified pathological fracture presence (CMS/HCC)Major depressive disorder with single episode, in remission (HCC) (CMS/HCC); Mixed hyperlipidemia (CMS/HCC); Anxiety; Vitamin D deficiency; Environmental and seasonal allergies; Hypothyroidism (acquired) (CMS/HCC); Gastroesophageal reflux disease, unspecified whether esophagitis present; Anxiety and depression (CMS/HCC); MARY (generalized anxiety disorder) (CMS/HCC); Seizures (CMS/HCC); Simple chronic bronchitis (CMS/HCC)Start: 03-19-2024 End: 55-72-5104TbwwrbSisgklf Banks CNAProMedica Physicians RheumatologyComment on above:DDD (degenerative disc disease), cervicalStart: 02-13-2024 End: 96-48-0453RqmbstGmakkt Bryan CMAProMedica Physicians RheumatologyComment on above:DDD (degenerative disc disease), cervicalStart: 12-27-2023 End: 07-60-7546wfioruiupsQPE AMINProMedica Cleveland Clinic Foundationtart: 12-27-2023 End: 28-74-2562Nyjmwb outpatient visit 25 minutesAli Nessa GRAY Work Phone: [facility] RheumatologyComment on above: 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); Fibromyalgia; Trochanteric bursitis of both hips; DDD (degenerative disc disease), cervical; DDD (degenerative disc disease), lumbar; Medication monitoring encounterStart: 12-26-2023 End: 01-44-2248Ykfbkejfg Result EncounterLisa Edilia FLOOR SANDER Work Phone: noms External Department UnsolicitedStart: 12-26-2023 End: 25-96-7633Gramysdqm Result EncounterLisa Aichholz FLOOR SANDER Work Phone: noms External Department UnsolicitedStart: 12-22-2023 [facility] PPGStart: 12-19-2023 End: 00-45-2346Ldfwwookb Result EncounterGeneric External Data ProviderNOMS External Department UnsolicitedStart: 12-19-2023 End: 13-96-5224Whfrpjiqh Result EncounterGeneric External Data ProviderNOUT External Department UnsolicitedStart: 08-29-2023 End: 57-17-8336Ljkxpw outpatient visit 25 minutesAli Nessa GRAY Work Phone: [facility] Physicians RheumatologyComment on above: Undifferentiated connective tissue disease ([facility]) (Primary Dx); Rheumatoid factor positive; Fibromyalgia; Trochanteric bursitis of both hips; DDD (degenerative disc disease), cervical; DDD (degenerative disc disease), lumbar; Medication monitoring encounterStart: 08-17-2023 End: 71-89-2133Wwkygcgtm Result EncounterLisa Edilia FLOOR SANDER Work Phone: noms External Department UnsolicitedStart: 08-17-2023 End: 98-59-7052Tejgbtazp Result EncounterLisa Yonathanlauragailz FLOOR SANDER Work Phone: noms External Department UnsolicitedStart: 12-23-2022 ambulatoryCNP MINDA AICHHOLZFacility:I2Jpgxu: 12-22-2022 End: 11-77-0717dtefghtbjuTQR MINDA AICHHOLZFacility:L0Qvgvw: 12-13-2022 End: 87-07-6077hwtlbdmkqjUCT MINDA AICHHOLZFacility:F6Fycdq: 97-08-4527wsieeueuqo INSULATOR TECHNICIAN MINDA AICHHOLZFacility:W6Vjfun: 11-23-2022 End: 18-38-7477jukowvcjryWFK MINDA AICHHOLZFacility:W5Jrxni: 99-07-2250tffkoneova KRYSTIAN OLIVIERIFacility:METROHealthStart: 10-20-2022 End: 26-23-6306fnvihhlhlvKTWNB D HIGHLANDERFacility:G8Coyqe: 08-10-2022 End: 69-16-9856ijsuwegfrjUJJGP D HIGHLANDERFacility:B1Khvfg: 07-18-2022 End: 82-40-7320mhjmgqeloiBEIXKSY PROVIDERFacility:ROHealthStart: 07-18-2022 End: 41-29-3612Gtwgdks encounter procedureOral Surgery Land Degradation Analyst Work Phone: [facility] Oral SurgeryComment on above: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 (Primary Dx)Start: 07-05-2022 End: 05-24-0878rsgwlhngayZONQPDIQ CULLENFacility:G1Nbcwo: 06-21-2022 End: 73-72-6125ezukkwikcqCVZQKLIZ CULLENFacility:U5Qgchh: 06-02-2022 End: 02-74-7229ducuipuiuoMVB MINDA AICVINODZFacility:Q5Fjysm: 05-24-2022 End: 80-01-3974Hxnzmccccz and management of inpatientLI Telly GreeneMemorial Hermann Southwest Hospitaltart: 05-24-2022 End: 37-75-2540Fbdrgrrzdk and management of inpatientJaneth Deng MD Work Phone: [facility] 7KComment on above:Multiple fractures of foot, left, closed, initial encounter (Primary Dx)Start: 05-23-2022 End: 05-20-5750Ylukyfnxl department patient visitAngie Valles MD Work Phone: [facility] EDComment on above:Seizure (HCC) (Primary Dx); Closed fracture of left foot, initial encounter; Closed fracture of distal end of left fibula, unspecified fracture morphology, initial encounterStart: 06-14-2021 End: 41-13-3830Ihmcdccodm and management of inpatientMark Abdoulaye Oneal MD Work Phone: mthz [facility] MED SURGComment on above:Intractable vomiting with nausea, unspecified vomiting type (Primary Dx); COVID; Pneumonia of right lower lobe due to infectious organism; Dehydration Procedures DateProcedureProcedure DetailPerforming ClinicianStart: 33-29-5920Yzgkzvxjexv Kernskaty Pulido Comment on above:IH, polyp d3Ncntk: 01-29-2025 EsophagogastroduodenoscopyMassachusetts Mental Health Centeravel Wilnergail Comment on above:gastritis, biopsy for celiac disease. Start: 98-38-5219SWGBBM BLOOD*Minda Edilia FLOOR SANDER Work Phone: Start: 60-37-7874GR TOMOSYNTHESIS SCREENING BILisa Edilia FLOOR SANDER Work Phone: Start: 05-78-1848RuepkqerosfKqzc Edilia FLOOR SANDER Work Phone: Start: 50-27-0937Ap soft tissue head & neck real time imge docmLisa Edilia FLOOR SANDER Work Phone: Start: 42-48-7378CXK CBC WITH AUTO DIFFLisa Edilia FLOOR SANDER Work Phone: Start: 70-48-4251Trqzfh citrullinated peptide antibody ALI AMINComment on above:Result Comment: Interpretation-------- <3 Negative >=3 Positive Performed By: #### CMP, 1988-5, 29151-4, CBC, 59860-3, 97120-2 #### [facility] ([id number]) [address] [place] [address], [address] [place], [place] [address]Nrqfa: 95-28-6965OFE LIPID PROFILE (FASTING)Minda Yeboah FLOOR SANDER Work Phone: Start: 94-89-3729UXO MAGNESIUMLisa Yeboah FLOOR SANDER Work Phone: Start: 16-59-7068IRV THYROID STIM HORMONELisa Yeboah FLOOR SANDER Work Phone: Start: 44-25-1077RWW CMP (CMP) (FOR REMOTE [facility] USE) Minda Yeboah FLOOR SANDER Work Phone: Start: 19-72-1698Qw soft tissue head & neck real time imge docmLisa Yeboah FLOOR SANDER Work Phone: Start: 58-22-3811HM CERVICAL SPINE 5VGeneric External Data ProviderStart: 91-92-1461Hbsclsasski observation [Identifier] in Cervix by Cyto stainMinda Yeboah FLOOR SANDER Work Phone: Start: 95-68-9427TH TOMOSYNTHESIS SCREENING BILisa Edilia FLOOR SANDER Work Phone: Start: 95-67-7576EwcauywkgruKkkc Aichholz FLOOR SANDER Work Phone: Start: 60-26-8981Tljww gap [Moles/Vol]Dhruv Carrillo MD Work Phone: Start: 12-84-1266Oylne metabolic panel calcium total Dhruv Yoni Carrillo MD Work Phone: Start: 28-19-5765WWUVLZVXSB FILTRATION RATE, ESTIMATED Dhruv Yoni Carrillo MD Work Phone: Start: 46-78-2939Fdlum count complete automated Evelio Dennis MD Work Phone: Start: 31-98-6271Srvum gap [Moles/Vol]Unknown Provider ResultStart: 19-36-3927PNSSN METABOLIC PANEL W/ REFLEX TO MG FOR LOW KMohloulou Dennis MD Work Phone: Start: 52-90-3842RHSPEQCIWF FILTRATION RATE, ESTIMATED Unknown Provider ResultStart: 61-92-2170FCTPoig B Fisher MD Work Phone: Start: 33-58-5529Eyv routine ecg w/least 12 lds i&r Sumi Carrillo MD Work Phone: Start: 68-27-8780Hrsuv gap [Moles/Vol]Dhruv Carrillo MD Work Phone: Start: 35-49-7056Xkont count complete auto&auto difrntl wbcDhruv Carrillo MD Work Phone: Start: 81-83-4875Tfkf screen quantitative topiramate Dhruv Carrillo MD Work Phone: Start: 00-69-4833HMONQRJRHS FILTRATION RATE, ESTIMATED Dhruv Carrillo MD Work Phone: Start: 09-14-7807Kg lower extremity w/o contrast materialAngie Valles MD Work Phone: start: 71-37-1394Xy head/brain w/o contrast material Angie Valles MD Work Phone: Otart: 56-93-8140Xlt routine ecg w/least 12 lds w/i&r Angie Valles MD Work Phone: start: 05-23-2022 End: 50-89-7223Rtelo ankle complete minimum 3 viewsAngie Valles MD Work Phone: Ptart: 51-28-6265Szqdk of ethanolAngie Valles MD Work Phone: Start: 78-25-6509Ufaumzsxraoko metabolic panelAngie Valles MD Work Phone: Start: 70-16-3516WCBAQXEU PLATELET FRACTIONAngie Valles MD Work Phone: start: 87-55-6159Thzbpy dgradj products d-dimer quantitativeShmeagan Pretty PODIATRY DOCTOR - INSULATOR TECHNICIAN Work Phone: Start: 34-92-9088TRZJDWCT PLATELET FRACTIONShimarilin Pretty PODIATRY DOCTOR - INSULATOR TECHNICIAN Work Phone: Start: 70-74-8236Wdhtjp ecg 1-3 leads w/interpretation & reportUnknown Provider ResultStart: 06-17-2021 End: 26-11-6232Rqqrjm ecg 1-3 leads w/interpretation & reportUnknown Provider ResultStart: 54-85-7841Yudtk of ferritinShirulices A Sukhwinder PODIATRY DOCTOR - INSULATOR TECHNICIAN Work Phone: Start: 40-47-4123S-reactive proteinShirley A Sukhwinder PODIATRY DOCTOR - INSULATOR TECHNICIAN Work Phone: Start: 05-73-1435LJTUJJHT PLATELET FRACTIONShirley Amira [place] PODIATRY DOCTOR - INSULATOR TECHNICIAN Work Phone: Start: 85-28-6380Hje brain brain stem w/o w/contrast materialShirulices Collier Sukhwinder PODIATRY DOCTOR - INSULATOR TECHNICIAN Work Phone: Start: 06-16-2021 End: 93-84-5635Pngvi of ferritinShirley A [place] PODIATRY DOCTOR - INSULATOR TECHNICIAN Work Phone: Start: 63-68-9747G-reactive proteinShirley A [place] PODIATRY DOCTOR - INSULATOR TECHNICIAN Work Phone: Start: 06-16-2021 End: 97-20-4196Uqmeki ecg 1-3 leads w/interpretation & reportUnknown Provider ResultStart: 92-39-8631Sfhfvz ecg 1-3 leads w/interpretation & reportUnknown Provider ResultStart: 59-92-4381Shcnubm dehydrogenase ldhHeather Dylon Sampson PODIATRY DOCTOR - INSULATOR TECHNICIAN Work Phone: Start: 73-90-7285Eljyj of ammoniaShirley Amira [place] PODIATRY DOCTOR - INSULATOR TECHNICIAN Work Phone: Start: 76-89-9939D-reactive proteinShirley A [place] PODIATRY DOCTOR - INSULATOR TECHNICIAN Work Phone: Start: 59-79-8021Fobdqmmchd microscopic onlyShirley A Sukhwinder PODIATRY DOCTOR - INSULATOR TECHNICIAN Work Phone: Start: 01-35-5145Bhbtp dip stick/tablet rgnt auto w/o microscopyShirley A [place] PODIATRY DOCTOR - INSULATOR TECHNICIAN Work Phone: Start: 31-18-9387Bgepy of magnesiumMark Abdoulaye Oneal MD Work Phone: Start: 57-85-7648Bbvezeocpscv pulse oximetryMark Abdoulaye Oneal MD Work Phone: Start: 06-14-2021 End: 06-42-5235FDHAEDH, BLOOD 1Amy Tommy Lal PA-C Work Phone: Start: 72-32-3437Mcyuyjpiim exam chest single viewAmy Tommy Hali PA-C Work Phone: Start: 13-80-1338Cv head/brain w/o contrast material Gricelda Tommy Lal PA-C Work Phone: Start: 98-50-3463Cb abdomen & pelvis w/contrast materialAmy L [place] PA-C Work Phone: Start: 67-39-8101TBCMWDR, WHOLE BLOODDamarian Richardson MD Work Phone: Start: 06-14-2021 End: 67-62-5487Nov routine ecg w/least 12 lds i&r onlyAmy Tommy Hali PA-C Work Phone: Start: 06-14-2021 End: 34-28-1912Ftmmf of amylaseAmy L [place] PA-C Work Phone: Start: 27-30-9640Etieqln [Moles/volume] in Serum or PlasmaAmy Tommy [place] PA-C Work Phone: Start: 92-72-8519SJPKX-19, RAPIDAmy L Hali PA-C Work Phone: Start: 54-21-5093DqbigqercjuIgww Edilia FLOOR SANDER Work Phone: AppendectomyMuhammad Flash Plan of Treatment DateCare ActivityDetailAuthorStart: 56-12-6646Xsbkincge for malignant neoplasm of colonNOMS HealthcareStart: 06-88-5772Mmgsliwoa for malignant neoplasm of cervixNOMS HealthcareStart: 53-10-5533Duasepdnx for malignant neoplasm of breast MammogramNOMS HealthcareStart: 11-44-5208Gdhsd BMI ScreeningAdult BMI Screening [facility]Start: 20-66-7725Vqnqk BMI ScreeningAdult BMI Screening [facility] SystemStart: 61-35-1214Gxflusrdp vaccinationInfluenza Vaccine [facility] SystemStart: 02-24-2025 End: 01-78-5888Ucamari encounter yuhfnktsy46/28/2025 2:40 PM EDT Office Visit [facility] [address] [place] [phone] Minda Yeboah NP [address] [place] [address] [facility] CW FMStart: 02-24-2025 End: 24-89-2628BZ Lumbar spine 2 or 3 ViewsXR lumbar spine 2 or 3 views Imaging Routine Osteoarthritis of spine with radiculopathy, lumbosacral region Expected: 02/24/2025, Expires: 02/24/2026[facility] Work Phone: Comment on above:Expected: 02/24/2025, Expires: 02/24/2026Start: 01-16-2025 End: 29-84-4097Lxafqqm encounter eudfkjxtq91/19/2025 12:30 PM EDT Office Visit [facility], A Department of [address] [phone] Cristian Szymanski MD [address] [address] [facility]: 01-13-2025 End: 47-58-9029GK Chest for screening WO contrastCT lung screening low dose Imaging Routine Cigarette nicotine dependence without complication Expected: 01/13/2025, Expires: 01/13/2026[facility] Work Phone: Comment on above:Expected: 01/13/2025, Expires: 01/13/2026Start: 01-13-2025 End: 87-06-5963Xprjueg encounter ewueixdgy08/16/2025 1:00 PM EDT Office [facility] [address] [place] [address] Minda Yeboah, ISA [address] [place] [address] [facility] FMStart: 28-98-6500Tvmiy [facility] Hospitaltart: 99-63-8466Uzyatkmm identified in Urine by CultureUrine [facility] Hospitaltart: 12-17-2024 End: 85-44-5187Sekhbco encounter yrzlpityz83/20/2025 4:00 PM EDT Office [facility] [address] [place] [address] Minda Yeboah, ISA [address] [place] [address] [facility] FMStart: 12-17-2024 End: 16-34-4630Qqqqoxfqudoanc difficile toxin A+B tcdA+tcdB genes [Presence] in Stool by KAYLEEN with probe detectionClostridium difficile,EIA Microbiology Routine Diarrhea, unspecified type Expected: 12/17/2024 (Approximate), Expires: 12/17/2025[facility] HealthcareComment on above:Expected: 12/17/2024 (Approximate), Expires: 12/17/2025Start: 12-17-2024 End: 08-25-5812Gfqmgtobjup of occult blood in single stool specimenOccult blood x 1, stool Lab Routine Diarrhea, unspecified type Expected: 12/17/2024 (Approximate), Expires: 12/17/2025[facility] Work Phone: Comment on above:Expected: 12/17/2024 (Approximate), Expires: 12/17/2025Start: 12-17-2024 End: 00-42-3930UW Thyroid glandUS thyroid Imaging Routine Multiple thyroid nodules (CMS/HCC) Expected: 12/17/2024 (Approximate), Expires: 12/17/2025[facility] Work Phone: Comment on above:Expected: 12/17/2024 (Approximate), Expires: 12/17/2025Start: 10-01-2024 End: 24-77-7630Rqaoyrf encounter impsswepe44/04/2025 1:20 PM EST Office Visit [facility] [address] [place] [address] Minda Yeboah, ISA [address] [place] [address] [facility] FMStart: 10-01-2024 End: 38-82-5339Zvgalox encounter epxwwmzma52/04/2025 11:30 AM EST Office Visit [facility] [address] [phone] Cristian Szymanski MD [address] [address] [facility] RheumatologyStart: 09-90-2422Sbgcp BMI ScreeningAdult BMI ScreeningProJoint Township District Memorial Hospital SystemStart: 69-03-7837Insnmjspm for malignant neoplasm of breastMammogramNOUT Healthcare Start: 07-04-2024 End: 46-86-2560Gjnlazc encounter yigiyppmw77/05/2024 2:00 PM EST Office Visit [facility] [address] [place] [address] Minda Yeboah, FLOOR SANDER [address] [place] [address] [facility] FMStart: 06-26-2024 End: 18-90-4514Qkrcfpo encounter nqmeqavpf92/27/2024 12:30 PM EST Office Visit [facility] [address] [place] [address] Cristian Szymanski MD [address] [place] [address] [facility] RheumatologyStart: 06-05-2024 End: 05-83-1518Mesvhqo encounter /06/2024 2:00 PM EST Office Visit [facility] [address] [place] [address] Minda Yeboah, ISA [address] [place] [address] Tobacco user (Primary Dx)[facility] FMComment on above:Tobacco user (Primary Dx)Start: 05-29-2024 End: 00-61-4578Tcpaskz encounter vpuqoupde48/30/2024 2:00 PM EDT Office Visit [facility] [address] [place] [address] Minda Yeboah, FLOOR SANDER [address] [place] [address] [facility] FMStart: 05-06-2024 End: 88-18-7960Nphxcht encounter qhaitslfh81/07/2024 1:40 PM EDT Office Visit [facility] [address] [place] [address] Minda Yeboah, FLOOR SANDER [address] [place] [address] [facility] FMStart: 05-03-2024 End: 82-66-1650Rlmecjfubqg [Units/volume] in Serum or PlasmaTSH Lab Routine Hypothyroidism (acquired) ([facility]) Expected: 05/03/2024 (Approximate), Expires: 04/03/2025[facility] Work Phone: Comment on above:Expected: 05/03/2024 (Approximate), Expires: 04/03/2025Start: 05-03-2024 End: 00-63-7829Gheuukfju (T4) free [Mass/volume] in Serum or PlasmaT4, free Lab Routine Hypothyroidism (acquired) ([facility]) Expected: 05/03/2024 (Approximate), Expires: 04/03/2025[facility] HealthcareComment on above:Expected: 05/03/2024 (Approximate), Expires: 04/03/2025Start: 04-29-2024 End: 49-64-1895Puekycv encounter speufkpdg49/30/2024 5:30 PM EDT Office Visit [facility] [address] [place] [address] Minda Yeboah, FLOOR SANDER [address] [place] [address] [facility]rivedNOROLLING [facility] FMComment on above:ArrivedStart: 04-09-2024 End: 84-50-4382Mvmbvgu encounter ulufokazn02/10/2024 1:20 PM EDT Office Visit [facility] [address] [place] [address] Minda Yeboah, FLOOR SANDER [address] [place] [address] [facility] CW FMStart: 04-02-2024 End: 90-18-9602Ykiqwrb encounter cjufkuagl06/03/2024 1:20 PM EDT Office Visit [facility] [address] [place] [address] Minda Yeboah, FLOOR SANDER [address] [place] [address] [facility] FMComment on above:ArrivedStart: 03-31-2024 Influenza vaccinationInfluenza VaccineCity Hospital SystemStart: 03-22-2024 End: 63-94-7604Gimucqwmxzabc metabolic 2000 panel - Serum or PlasmaComprehensive metabolic panel Lab Routine Osteoporosis, unspecified osteoporosis type, unspecified pathological fracture presence (CMS/HCC) Expected: 03/22/2024 (Approximate), Expires: 03/22/2025[facility] HealthcareComment on above:Expected: 03/22/2024 (Approximate), Expires: 03/22/2025Start: 03-22-2024 End: 71-54-5479Igsng 1996 panel - Serum or PlasmaLipid panel Lab Routine Hypothyroidism (acquired) (CMS/HCC) Mixed hyperlipidemia (CMS/HCC) Expected: 03/22/2024 (Approximate), Expires: 03/22/2025[facility] HealthcareComment on above: Expected: 03/22/2024 (Approximate), Expires: 03/22/2025Start: 03-22-2024 End: 79-39-5804Jjmnmlmxg [Mass/volume] in Serum or PlasmaMagnesium Lab Routine Hypomagnesemia Expected: 03/22/2024 (Approximate), Expires: 03/22/2025[facility] HealthcareComment on above:Expected: 03/22/2024 (Approximate), Expires: 03/22/2025Start: 03-22-2024 End: 96-47-9341Trjphxieoqu [Units/volume] in Serum or PlasmaTSH Lab Routine Hypothyroidism (acquired) (CMS/HCC) Expected: 03/22/2024 (Approximate), Expires: 03/22/2025[facility] Work Phone: Comment on above:Expected: 03/22/2024 (Approximate), Expires: 03/22/2025Start: 03-22-2024 End: 52-95-1060Bamuoywcl (T4) free [Mass/volume] in Serum or PlasmaT4, free Lab Routine Hypothyroidism (acquired) (CMS/HCC) Expected: 03/22/2024 (Approximate), Expires: 03/22/2025[facility] HealthcareComment on above:Expected: 03/22/2024 (Approximate), Expires: 03/22/2025Start: 12-27-2023 End: 15-43-4018Wzkagas encounter scgqjlcaz03/29/2024 12:00 PM EDT Office Visit [facility] [address] [phone] Cristian Szymanski MD [address] [address] [facility]umatologyStart: 08-29-2023 End: 51-36-7598YD Cervical spine 4 or 5 ViewsX-ray spine cervical 4 or 5 views Imaging Routine DDD (degenerative disc disease), cervical Expected: 08/29/2023, Expires: 08/29/2024[facility] Work Phone: comment on above:Expected: 08/29/2023, Expires: 08/29/2024Start: 08-29-2023 End: 43-16-7253KS Lumbar spine 2 or 3 ViewsX-ray spine lumbar 2 or 3 views Imaging Routine DDD (degenerative disc disease), lumbar Expected: 08/29/2023, Expires: 08/29/2024ProSelect [facility] SystemComment on above:Expected: 08/29/2023, Expires: 08/29/2024Start: 97-51-8973Qhqkpaild vaccinationInfluenza Vaccine [facility] SystemStart: 09-23-2022 End: 87-24-4132Dblftgy encounter /24/2023 Office Visit Oral Surgery Krystian Munoz DMD, MD [address] [place] [address] [facility] Oral SurgeryStart: 33-43-5564Ginfymtma vaccinationInfluenza Vaccine (#1)[facility] HospitalStart: 37-56-1500Kbmmjfqtp vaccinationFlu vaccine (#1)[facility]Start: 85-10-6540Xifmrjggp vaccinationFlu vaccine (#1)[facility]: 98-81-6521Zvodejkvo for malignant neoplasm of colonColonoscopyNOMS HealthcareStart: 90-87-1725Ytwycwtggbptbv of varicella zoster vaccineZoster (Shingles) Vaccine (1 of 2)[facility]: 25-85-3814Hucolfatxag of occult blood in single stool specimenFIT [facility] ClarksvilleHealthStart: 31-00-5119Wdpjgrpcb for malignant neoplasm of breastBreast cancer screenUpper Valley Medical CenterStart: 35-00-9089Bspasblng for malignant neoplasm of colonCRC ScreeningWyandot Memorial HospitalStart: 70-27-3255Agboeybia for malignant neoplasm of lungLow dose CT lung [facility] PrebleStart: 64-98-5450Urgnsqbp (RZV) Vaccine (1 of 2)Shingles (RZV) Vaccine (1 of 2)[facility] HospitalStart: 11-01-2017 Shingles Vaccine (1 of 2)Shingles Vaccine (1 of 2)[facility] CenterStart: 11-01-2012 Cholesterol [Mass/volume] in Serum or PlasmaCholesterolTennova Healthcare - ClarksvilleHealthStart: 45-45-7114Dhennmkjz for malignant neoplasm of colonUpper Valley Medical CenterStart: 2007 Screening for malignant neoplasm of breastMammographyMetKettering Health Main CampusStart: 70-84-8041Rzldwjmx screenDiabetes screenWarren Memorial Hospital: 63-37-4243Sjpubjhmn for malignant neoplasm of cervixUpper Valley Medical CenterStart: 52-60-6466Ckcdngkgr for malignant neoplasm of cervixPap smearUpper Valley Medical CenterStart: 61-39-1931DEbG,Tdap and Td Vaccines (1 - Tdap)DTaP,Tdap and Td Vaccines (1 - Tdap)[facility]: 69-47-9114ECgL/Tdap/Td vaccine (1 - Tdap) DTaP/Tdap/Td vaccine (1 - Tdap)[facility]: 41-18-4380Dwrsj BMI Follow Up PlanAdult BMI Follow Up PlanFormerly [facility]aretart: 28-80-6843Ktfgxpuyq C screeningBON [facility]: 41-06-7395Ddpjivh + diphtheria + acellular pertussis vaccine (product)Tdap BoosterMetroBarney Children'S Medical CenterStart: 80-22-0704YZS [facility]: 13-06-5387LGIGO-19 Vaccine (1)COVID-19 Vaccine (1) [facility]: 35-32-7992Lcwmjqhpfi ScreenDepression ScreenBON [facility]: 55-02-5612Lwwukidggi ScreeningDepression ScreeningFormerly [facility]art: 61-68-5434Bimsost ScreeningTobacco ScreeningFormerly [facility]aretart: 25-77-3850Nvnug panelUpper Valley Medical CenterStmillersburg: 15-21-1804Ggsrlfxchcmr 0-64 years Vaccine (1 - PCV)Pneumococcal 0-64 years Vaccine (1 - PCV)BON [facility]: 97-74-6345Rmfzgskhebrv 0-64 years Vaccine (1 of 2 - PPSV23) Pneumococcal 0-64 years Vaccine (1 of 2 - PPSV23)[facility]: 05-03-1966 COVID-19 Vaccine (#1)COVID-19 Vaccine (#1)[facility]: 49-44-7211Kiyfswcfi C screeningHepatitis C [facility]: 1967 Screening for malignant neoplasm of colonMetroBarney Children'S Medical CenterStart: 08-85-2174Jqlqsiqvd for malignant neoplasm of lungLung Cancer Screening Shared Decision MakingSaint Joseph Health CenterStart: 78-72-8272Xvactes stimulating hormone measurementTSHMetroHealth C reactive protein [Mass/volume] in Serum or PlasmaC-reactive protein Lab Routine Inflammatory arthritis 08/19/2024 2:56 PM [facility] HospitalGiftMe [facility] ServicesC- reactive proteinC-Reactive Protein Lab Routine Daily until discontinued starting 06/15/2021, 3 [employer] Work Phone: comment on above:Daily until discontinued starting 06/15/2021, 3 completedC-reactive proteinC-Reactive Protein Lab Routine 06/18/2021 6:01 AM [employer] Phone: End: 50-41-6109J-reactive proteinC-reactive protein Lab Routine Inflammatory arthritis 1 Occurrences starting 08/19/2024 until 08/19/2025[facility] [employer] [facility] Health ServicesComment on above:1 Occurrences starting 08/19/2024 until 08/19/2025 End: 62-81-3047E-reactive proteinC-reactive protein Lab Routine Medication monitoring encounter 1 Occurrences starting 10/17/2024 until 10/17/2025[facility] CenterComment on above:1 Occurrences starting 10/17/2024 until 10/17/2025 End: 37-69-7386BXD panel - Blood by Automated countCBC Lab Routine Medication monitoring encounter 1 Occurrences starting 08/19/2024 until 08/19/2025[facility] CenterComment on above:1 Occurrences starting 08/19/2024 until 6CBC panel - Blood by Automated countCBC without diff Lab Routine Medication monitoring encounter 08/19/2024 2:56 PM [facility] End: 29-95-0229EED panel - Blood by Automated countCBC Lab Routine Medication monitoring encounter 1 Occurrences starting 10/17/2024 until 10/17/2025[facility] CenterComment on above:1 Occurrences starting 10/17/2024 until 6CBC W Auto Differential panel - BloodCBC Auto Differential Lab Routine Daily until discontinued starting 06/16/2021, 3 completedRapp[employer] Work Phone: comment on above:Daily until discontinued starting 06/16/2021, 3 completed End: 77-23-0106NXE AbCCP Ab Lab Routine Inflammatory arthritis 1 Occurrences starting 08/19/2024 until 08/19/2025[facility] [employer] [facility] Health ServicesComment on above:1 Occurrences starting 08/19/2024 until 08/19/2025 End: 18-52-5512Rdbincnruwbpn metabolic 2000 panel - Serum or PlasmaComprehensive metabolic panel Lab Routine Medication monitoring encounter 1 Occurrences starting 08/19/2024 until 08/19/2025[facility] [employer] [facility] ServicesComment on above:1 Occurrences starting 08/19/2024 until 6Comprehensive metabolic 2000 panel - Serum or PlasmaComprehensive metabolic panel Lab Routine Medication monitoring encounter 08/19/2024 2:[address] [facility] [employer] [facility] End: 11-78-0821Lobhgxdxgalio metabolic 2000 panel - Serum or PlasmaComprehensive metabolic panel Lab Routine Medication monitoring encounter 1 Occurrences starting 10/17/2024 until 10/17/2025ProAidhenscorner SystemComment on above:1 Occurrences starting 10/17/2024 until 10/17/2025omprehensive Metabolic Panel w/ Reflex to MGComprehensive Metabolic Panel w/ Reflex to MG Lab Routine Daily until discontinued starting 06/16/2021, 3 [employer] Phone: comment on above:Daily until discontinued starting 06/16/2021, 3 completedCT FOOT LEFT WO CONTRASTCT FOOT LEFT WO CONTRAST Imaging STAT 05/24/2022 12:29 AM [employer]NowPublic Work Phone: culture, Blood 1MGigsTime Phone: Cyclic citrullinated peptide IgG Ab [Units/volume] in Serum or PlasmaCCP Ab Lab Routine Inflammatory arthritis 08/19/2024 2:56 PM EST ProMLaclede Group SystemD-Dimer, QuantitativeD-Dimer, Quantitative Lab Routine Daily until discontinued starting 06/15/2021, 4 [employer] Phone: comment on above:Daily until discontinued starting 06/15/2021, 4 completed End: 99-88-1635Vmie screen multi urineDrug screen multi urine Lab Routine One Time for 1 Occurrences starting 05/23/2022 until 2BON [employer] Phone: comment on above:One Time for 1 Occurrences starting 05/23/2022 until 05/23/2022EKG 12 LeadEKG 12 Lead ECG STAT 05/23/2022 11:42 PM EDKeychain Logistics Phone: End: 02-99-8138Wnhwateardj sedimentation rateErythrocyte Sedimentation Rate (ESR) Lab Routine Inflammatory arthritis 1 Occurrences starting 08/19/2024 until 08/19/2025[employer] Work Phone: comment on above:1 Occurrences starting 08/19/2024 until 08/19/2025 End: 12-73-9405Tbdszehceqo sedimentation rateErythrocyte Sedimentation Rate (ESR) Lab Routine Medication monitoring encounter 1 Occurrences starting 10/17/2024 until 10/17/2025[employer] Work Phone: comment on above:1 Occurrences starting 10/17/2024 until 10/17/2025Erythrocyte sedimentation rate by Photometric methodErythrocyte Sedimentation Rate (ESR) Lab Routine Inflammatory arthritis 08/19/2024 2:56 PM [employer] SystemFerritin [Mass/volume] in Serum or PlasmaFerritin Lab Routine Daily until discontinued starting 06/15/2021, 3 [employer] Phone: comzque on above:Daily until discontinued starting 06/15/2021, 3 completedFerritin [Mass/volume] in Serum or PlasmaFerritin Lab Routine 06/18/2021 6:01 AM [employer] Phone: FibrinogenFibrinogen Lab Routine Daily until discontinued starting 06/15/2021, 4 [employer] Phone: comment on above:Daily until discontinued starting 06/15/2021, 4 completedOxygen therapy [Minimum Data Set]Initiate Oxygen Therapy Protocol Respiratory Care Routine Daily until discontinued starting 06/14/2021 [employer] Phone: Comment on above:Daily until discontinued starting 06/14/2021Oxygen therapy [Minimum Data Set]Initiate Oxygen Therapy Protocol Respiratory Care Routine As Needed until discontinued starting 2BON [employer] Phone: comtsgs on above:As Needed until discontinued starting 2Patient EducationLow back pain in adultsUniversity Hospitals Parma Medical Center Work Phone: End: 80-35-5201TihawsqxhXVX [employer] Work Phone: comment on above:One Time for 1 Occurrences starting 05/23/2022 until 05/23/2022 End: 19-35-0699Bjhzvqmpug factorRheumatoid factor Lab Routine Inflammatory arthritis 1 Occurrences starting 08/19/2024 until 08/19/2025SmartRecruitersComment on above:1 Occurrences starting 08/19/2024 until 08/19/2025 Rheumatoid factor [Units/volume] in Serum by NephelometryRheumatoid factor Lab Routine Inflammatory arthritis 08/19/2024 2:56 PM [facility] End: 92-64-0688Maoems applicationSplint application Procedures Routine One Time for 1 Occurrences starting 05/24/2022 until 05/24/2022ON [employer] Work Phone: comment on above:One Time for 1 Occurrences starting 05/24/2022 until 05/24/2022 End: 87-05-1648Gwbonljiwx with Reflex to CultureUrinalysis with Reflex to Culture Lab Routine One Time for 1 Occurrences starting 05/23/2022 until 1 ON [employer] Work Phone: comment on above:One Time for 1 Occurrences starting 05/23/2022 until 05/23/2022 Immunizations Immunization DateImmunizationNotesCare HwvmorbdWslzlsju68-86-1161wglnendso, injectable, quadrivalent, preservative freeLisa Edilia FLOOR SANDER Work Phone: [facility] CenterMqogssrlqs94-59-0897hukcgwuil virus vaccine, unspecified formulationCristian Szymanski MD Work Phone: [phone]-PtiryAshtabula [facility] Payers DatePayer CategoryPayerPolicy [id number] [id number] [id number] [id number] ADVANTAGE [employer] [id number] 2014- Present [phone] [address] [place], [place] [id number] 2.16.840.1.960040.3.5[id number] 2.16.840.1.247787.3.57[id number] 2.16.840.1.305648.3.579.[id number] 2.16840.1.179864.3.579.[id number] 2.16840.1.667956.3.579.2.32395-18-7140Pqffelj8253769 2.840.1.586060.3.579.2.67564-32-8520Bvupbxf0691202 2.840.1.668337.3.579.[id number] 2.0.1.908152.3.579.2.63742-95-0487Vxeehun1294971 2.840.1.785827.3.579.2.41180-91-0941Nalatvl1682074 2.0.1.743413.3.579.2.47366-90-7999Lixpvde4969461 2.840.1.863044.3.579.2.75158-52-6895Jhcjclu5348227 2.840.1.430903.3.579.2.03711-26-0556Nndwvlp7877427 2.840.1.935385.3.579.2.48101-56-1652Lxhjmsu3844932 2.840.1.143490.3.579.2.39357-87-4790Njtfner3666547 2.16840.1.364520.3.579.2.48842-34-9616Seaigbr85528604 2.840.1.561657.3.579.2.354571-18-6643Gontkxc13538589 2.840.1.551812.3.579.2.3[id number] 2.16840.1.551447.3.579.2.66[id number] 2.840.1.098431.3.579.2.413569-34-2439Wsihyyg966552456 2.0.1.806379.3.579.2.181314-20-4762Jofuxlo02905401 2..1.046370.3.579.2.947500-22-9098Howcglv10644068 2..1.870692.3.579.2.351788-72-3331Vhtflkf40031368 2.0.1.356643.3.579.2.225499-55-8355Uujviyq4140345 2.0.1.828696.3.579.2.598337-69-6360Idxmypm4017243 2.0.1.254405.3.579.2.144846-26-4183Ndkdoca8882956 2..1.432175.3.579.2.725191-47-6996Ninjoco7949213 2.0.1.520752.3.579.2.067372-45-1196Nqxxzdi9288778 2.0.1.675479.3.579.2.703625-64-6877Tdkzyke3512475 2.840.1.820795.3.579.2.456559-92-0432Kgnhllf59769954 2.840.1.553992.3.579.2.29428-18-5946Nmqyrrn45205967 2.16.840.1.611096.3.579.2.91066-40-0940Nexlvyl14174020 2.16.840.1.549786.3.579.2.27077-51-1447Kfjagzv91523721 2.16.840.1.135581.3.579.2.93779-41-5502Bhpslhy70856863 2.16.840.1.910872.3.579.2.22190-08-9225Onueagw291380326 2.16.840.1.681672.3.579.2.78358-39-5252Yvjkkbq158233638 2.16.840.1.765414.3.579.2.25740-40-8652Ocerrls554153744 2.16.840.1.374750.3.579.2.32751-05-4687Rufmaap053825539 2.16.840.1.431670.3.579.2.20[id number] 1.2.840.914994.1.13.239.2.7.3.305562.396Hjhkecu71171241 2.16.840.1.572503.3.579.2.531 Social History DateTypeDetailFacilityStart: 07-31-1981 End: 39-08-0586Wpoqlvc smoking status NHISSmokes tobacco dailyAk[facility] [employer] Work Phone: start: [id number] of tobacco useCigarette SmokerAkron Children'S Hospital [employer] Phone: start: 06-15-2021 End: [phone] intakeCurrent drinker of alcohol (finding)[facility] [employer] Work Phone: start: [phone] Assigned At BirthNot on [facility] [employer] Work Phone: start: 05-13-2022 End: [phone] to SARS-CoV-2 (event)Not sureMerflakita HealthStart: 08-20-2012 End: [phone] smoked current (pack per day) - Ldbgeloa7HCLZ HealthcareStart: [phone] use and exposureSmokeless tobacco non-userBON [employer] Work Phone: Tobacco smoking status NHISTobacco smoking consumption unknownMetroHealthStart: 12-18-2023 End: [phone] beverage intakeLifetime non-drinker (finding)[facility] HealthcareStart: 04-29-2024 End: [phone] use panelTIMPANOGOS REGIONAL HOSPITAL HealthcareStart: [phone] Comment coffee: 2-3cups dailyTIMPANOGOS REGIONAL HOSPITAL HealthcareStart: [id number]- [facility] HealthStart: 11-11-2009 End: [phone] (finding)[facility] SystemStart: 12-19-2024 End: [phone] smoking statusHeavy tobacco smoker (finding)[facility] Hospitalexual OrientationAshtabula [facility] Hospital [facility] Start: [phone] Assigned At [facility] Functional Status Argb[id number] Health Questionnaire 2 item (PHQ- 2) [Reported][facility] CenterOitntlsdxm08-20-4499Wpyebgv Health Questionnaire 2 item (PHQ- 2) [Reported][facility] Clinical Notes 06-16-2021 to 02-24-2025 Note Date & [id number] History of Present illness Narrative* Minda Yeboah NP - 02/24/2025 3:33 PM EDTAssociated Problem(s): Spondylosis, lumbosacral Weakness in legs, sometimes hard with walking No NT Sxs worse with no methotrexate Consider PT * Minda Yeboah NP - 02/24/2025 3:33 PM EDTAssociated Problem(s): Rheumatoid arthritis, unspecified (HCC) Flare up with RA d/t no methotrexate, * Minda Yeboah NP - 02/24/2025 3:31 PM EDTAssociated Problem(s): Weight loss Food does not taste good since getting dentures * Minda Yeboah NP - 02/24/2025 3:30 PM EDTAssociated Problem(s): Constipation Is taking linzess, this is helping alot * Minda Yeboah NP - 02/24/2025 3:30 PM EDTAssociated Problem(s): GERD (gastroesophageal reflux disease) Recommendations: freq small meals, nothing to eat or drink at least 2 hours prior to bed, limit caffeine, alcohol, as well as spicy foods Meds to limit or avoid if possible: NSAIDS Elevate HOB if possible Currently taking PPI * SHARON QUIGLEY - 02/24/2025 2:40 PM EDT Leg weakness unable to walk long distances, get on the examination table, or stand for long periodsof time. Pt states it has been going on for a couple months now she feels her knees will give out and she is SOB Dr mishel samano * Minda Yeboah, FLOOR SANDER - 02/24/2025 2:40 PM EDT Images from the original note were not included. Tanja Carrero is a 59 y.o. female presents with chief complaint of No chief complaint on file. HPI: Here for recheck: Depression and anxiety; about 5-6 months ago stopped abilify and cut her sertraline to 100mg once aday: felt her son was cause of her stressors, he does not live with her anymore, she feels the medsare working for her. No SI/HI, no easy irritation/aggitation. Sleep 9pm-7: 30am good sleep Abd: no further episodes of bloody emesis, had scopes, told was lactose intolerant, no ulcers. + polyps, Has a fu on 03/07/25. 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 Ongoing 2months, worse over the last weeks +back pain, no cauda, SUBJECTIVE: MEDICATIONS: Current Outpatient Medications Medication Instructions [...] this in relation to your thyroid medicati atorvastatin (LIPITOR) 80 mg, Oral, Daily cetirizine (ZYRTEC) 10 mg, Oral, Daily cholecalciferol (VITAMIN D-3) 50 mcg, Oral, Daily esomeprazole (NEXIUM) 40 mg, Daily famotidine (PEPCID) 40 mg, Nightly fluticasone (Flonase) 50 MCG/ACT nasal spray 2 sprays, Each Nostril, Daily folic acid (FOLVITE) 1 mg, Daily ibuprofen 800 mg, Every 8 hours PRN levothyroxine (SYNTHROID) 50 mcg, Oral, Daily before breakfast Linzess 145 mcg, Daily magnesium oxide (MAG-OX) 400 mg, Oral, 2 times daily methotrexate 12.5 mg, Weekly QUEtiapine (SEROQUEL) 150 mg, Oral, Nightly sertraline (ZOLOFT) 100 mg, Oral, Daily topiramate (TOPAMAX) 100 mg, Oral, 2 times [...] urinating, dysuria and frequency. Musculoskeletal: Positive for back pain. Negative for arthralgias, joint swelling and myalgias. Skin: Negative for rash and wound. Neurological: Negative for dizziness, tremors, seizures, syncope and headaches. Psychiatric/Behavioral: Negative for behavioral problems, self-injury and suicidal ideas. The patient is not nervous/anxious. Hematological: Does not bruise/bleed easily. Endocrine: Negative for polydipsia, polyphagia and polyuria. Allergic/Immunologic: Negative for environmental allergies and food allergies. PAST MEDICAL HISTORY Past Medical History: Diagnosis Date Abnormal chest CT Age-related osteoporosis without current pathological fracture 07/25/2023 Anemia Anxiety At low risk for fall Chronic pain Constipation COVID-19 virus detected Depression with anxiety 08/14/2023 10/20/22: MARY 7 score=18, PHQ 9 score=18 Elevated serum creatinine 07/27/2023 Elevated serum glucose Environmental and seasonal allergies 08/20/2023 MARY (generalized anxiety disorder) 07/22/2023 GERD (gastroesophageal reflux disease) 08/14/2023 HLD (hyperlipidemia) 08/14/2023 Hypokalemia Hypomagnesemia 08/14/2023 Hypothyroidism (acquired) 07/03/2023 Insomnia 08/14/2023 Lumbar spine pain Major depressive disorder with single episode, in remission 07/03/2023 Migraines 08/14/2023 Mild episode of recurrent major depressive disorder Obesity with body mass index (BMI) of 30.0 to 39.9 09/11/2023 THOMAS (obstructive sleep apnea) 08/14/2023 sleep study: AHI 7, minimum oxygen saturation is 87% Osteoporosis 08/14/2023 Postmenopause RA (rheumatoid arthritis) ([facility]) 08/14/2023 Seizures ([facility]) 08/14/2023 Spondylosis, lumbosacral 08/14/2023 Thyroid enlargement 09/11/2023 Thyroid nodule 09/11/2023 Tobacco user 08/14/2023 Past Surgical History: Procedure Laterality Date APPENDECTOMY 02/23/2007 family history includes Arthritis in her mother; Cancer in her mother; Heart disease in her father,maternal grandmother, and another family member; Hypertension in her father, mother, and another family member; Hypothyroidism in her mother; Rheum arthritis in her mother. OBJECTIVE: Visit Vitals BP 120/88 (BP Location: Left arm, Patient Position: Sitting, BP Cuff Size: Adult long) Pulse 108 Temp 98.3 F (Temporal) Resp 20 Wt 179 lb 3.2 oz SpO2 95% BMI 28.07 kg/m Smoking Status Every Day BSA 1.96 m Physical Exam Vitals and nursing note [...] Tenderness: There is no abdominal tenderness. Musculoskeletal: Cervical back: Normal range of motion and neck supple. Right lower leg: No edema. Left lower leg: No edema. Comments: Flex: 40, ext 10 , limited rotation/lat bending -SLR, X2 (sitting) but does have low back pain MMT 4/5 bilat LE DTR's 2+ bilat patellar/achilles Generalized tenderness to lumbar region Skin: General: Skin is warm and dry. Capillary Refill: Capillary refill takes 2 to 3 seconds. Findings: No rash. Neurological: General: No focal deficit present. Mental Status: She is alert and oriented to person, place, and time. Psychiatric: Mood and Affect: Mood normal. Behavior: Behavior normal. Thought Content: Thought content normal. Judgment: Judgment normal. ASSESSMENT AND PLAN: Follow up in about 2 months (around 04/27/2025) for Recheck. Problem List Items Addressed This Visit MARY (generalized anxiety disorder) Current meds: sertraline, seroquel Relevant Medications sertraline (Zoloft) 100 MG tablet Seizures (HCC) Is not compliant with neurology fu Current meds: topirimate THOMAS (obstructive sleep apnea) You have a diagnosis of obstructive sleep apnea. It is recommended that you wear your PAP device any time while in bed sleeping. Not using the PAP device can increase your risk of elevated/uncontrolled high blood pressure, atrial fibrillation, heart attack, stroke, or sudden . Compliance with PAP:no GERD (gastroesophageal reflux disease) Recommendations: freq small meals, nothing to eat or drink at least 2 hours prior to bed, limit caffeine, alcohol, as well as spicy foods Meds to limit or avoid if possible: NSAIDS Elevate HOB if possible Currently taking PPI Spondylosis, lumbosacral - Primary Weakness in legs, sometimes hard with walking No NT Sxs worse with no methotrexate Consider PT Relevant Orders XR lumbar spine 2 or 3 views Rheumatoid arthritis, unspecified (HCC) Flare up with RA d/t no methotrexate, Constipation Is taking linzess, this is helping alot Mild episode of recurrent major depressive disorder Current meds: seroquel, sertraline Cigarette nicotine dependence without complication The patient [...] scan chest , to date not completed Hematemesis Had EGD/Colonoscopy: 01/29/25 gastropathy Avoid ETOH, advised quit smoking Colon polyps Colonoscopy: 01/29/25: 3 polyps: 2 hyperplastic and 1 sessile Weight loss Food does not taste good since getting dentures Other Visit Diagnoses Major depressive disorder with single episode, in remission Relevant Medications sertraline (Zoloft) 100 MG tablet * Minda Yeboah NP - 02/24/2025 7:13 AM EDTAssociated Problem(s): Colon polyps Colonoscopy: 01/29/25: 3 polyps: 2 hyperplastic and 1 sessile * Minda Yeboah NP - 02/24/2025 7:12 AM EDTAssociated Problem(s): Mild episode of recurrent major depressive disorder Current meds: seroquel, sertraline * Minda Yeboah NP - 02/24/2025 7:12 AM EDTAssociated Problem(s): MARY (generalized anxiety disorder) Current meds: sertraline, seroquel * Minda Yeboah NP - 02/24/2025 7:11 AM EDTAssociated Problem(s): Cigarette nicotine dependence without [...] scan chest , to date not completed * Minda Yeboah NP - 02/24/2025 7:11 AM EDTAssociated Problem(s): Hematemesis Had EGD/Colonoscopy: 01/29/25 gastropathy Avoid ETOH, advised quit smoking * Minda Yeboah NP - 02/24/2025 7:08 AM EDTAssociated Problem(s): THOMAS (obstructive sleep apnea) You have a diagnosis of obstructive sleep apnea. It is recommended that you wear your PAP device any time while in bed sleeping. Not using the PAP device can increase your risk of elevated/uncontrolled high blood pressure, atrial fibrillation, heart attack, stroke, or sudden . Compliance with PAP:no * Minda Yeboah NP - 02/24/2025 7:08 AM EDTAssociated Problem(s): Seizures (HCC) Is not compliant with neurology fu Current meds: topirimate documented in this encounterSaint [facility] [id number] Hospital Discharge instructions Patient Education 01/29/2025 15:09:19 Upper Endoscopy, Adult, Care After Upper Endoscopy, Adult, Care After After the procedure, it is common to have a sore throat. It is also common to have: Mild stomach pain or discomfort. Bloating. Nausea. Follow these instructions at home: The instructions below may help you care for yourself at home. Your health care provider may give you more instructions. If you have questions, ask your health care provider. If you were given a sedative during the procedure, it can affect you for several hours. Do not drive or operate machinery until your health care provider says that it is safe. If you will be going home right after the procedure, plan to have a responsible adult: ?Take you home from the hospital or clinic. You will not be allowed to drive. ?Care for you for the time you are told. Follow instructions from your health care provider about what you may eat and drink. Return to your normal activities as told by your health care provider. Ask your health care provider what activities are safe for you. Take lkaw-gju-ccopklf and prescription medicines only as told by your health care provider. Contact a health care provider if you: Have a sore throat that lasts longer than one day. Have trouble swallowing. Have a fever. Get help right away if you: Vomit blood or your vomit looks like coffee grounds. Have bloody, black, or tarry stools. Have a very bad sore throat or you cannot swallow. Have difficulty breathing or very bad pain in your chest or abdomen. These symptoms may be an emergency. Get help right away. Call 911. Do not wait to see if the symptoms will go away. Do not drive yourself to the hospital. Summary After the procedure, it is common to have a sore throat, mild stomach discomfort, bloating, and nausea. If you were given a sedative during the procedure, it can affect you for several hours. Do not drive until your health care provider says that it is safe. Follow instructions from your health care provider about what you may eat and drink. Return to your normal activities as told by your health care provider. This information is not intended to replace advice given to you by your health care provider. Make sure you discuss any questions you have with your health care provider. Document Revised: 10/26/2022 Document Reviewed: 10/26/2022 [employer] Patient Education 2023 [employer]. 01/29/2025 15:09:14 Gluten-Free Diet for Celiac Disease, Adult Gluten-Free Diet for Celiac Disease, Adult The gluten-free diet includes all foods that do not contain gluten. Gluten is a protein that is found in wheat, rye, barley, and some other grains. Following the gluten-free diet is the only treatment for people with celiac disease. It helps to prevent damage to the intestines and improves or eliminates the symptoms of celiac disease. Following the gluten-free diet requires some planning. It can be challenging at first, but it gets easier with time and practice. There are more gluten-free options available today than ever before. If you need help finding gluten-free foods or if you have questions, talk with your dietitian or health care provider. What are tips for following this plan? Reading food labels Read all food labels. Gluten is often added to foods. Always check the ingredient list and look forwarnings that the food may contain gluten. Foods that list any of these montemayor words on the label usually contain gluten: Wheat, flour, enriched flour, bromated flour, white flour, durum flour, lauro flour, phosphated flour, self-rising flour, semolina, farina, barley (malt), rye, and oats. Starch, dextrin, modified food starch, or cereal. Thickening, fillers, or emulsifiers. Malt flavoring, malt extract, or malt syrup. Hydrolyzed vegetable protein. In the [place] packaged foods that are gluten-free are required to be labeled GF. These foods should be easy to identify and are safe to eat. In the [place] [employer] companies are also required to list common food allergens, including wheat, on their labels. Shopping When grocery shopping, start in the produce, meat, and dairy sections. These areas are more likely to contain gluten-free foods. Then move to the aisles that contain packaged foods if you need to. Meal planning All fruits, vegetables, and meats are safe to eat and do not contain gluten. Talk with your dietitian or health care provider before taking a gluten-free multivitamin or mineral supplement. Be aware of gluten-free foods having contact with foods that contain gluten (cross-contamination). This can happen at home and with any processed foods. ?Talk with your health care provider or dietitian about how to reduce the risk of cross-contamination in your home. ?If you have questions about how a food is processed, ask the insect control aide. What foods can I eat? Fruits All plain fresh, frozen, canned, and dried fruits, and 100% fruit juices. Vegetables All plain fresh, frozen, and canned vegetables, and 100% vegetable juices. Grains Amaranth, hudson flours, 100% buckwheat flour, corn, millet, nut flours or nut meals, GF oats, quinoa, rice, sorghum, teff, rice wafers, pure cornmeal tortillas, popcorn, and hot cereals made from cornmeal or GF grains. Pendleton, rice, and wild rice. Some rice noodles or hudson noodles. Arrowroot starch, corn bran, corn flour, corn germ, cornmeal, corn starch, potato flour, potato starch flour, and rice bran. Plain, brown, and sweet rice flours. Rice portuguese, soy flour, and tapioca starch. Meats and other protein foods All fresh beef, pork, poultry, fish, seafood, and eggs. Fish canned in water, oil, brine, or vegetable broth. Plain nuts and seeds, peanut butter. Some precooked or cured meat, such as sausages or meat loaves. Some frankfurters. Dried beans, dried peas, and lentils. Dairy Fresh plain, dry, evaporated, or condensed milk. Cream, butter, sour cream, whipping cream, and most yogurts. Unprocessed cheese, most processed cheeses, some cottage cheeses, and some cream cheeses. Beverages Coffee, tea, and most herbal teas. Carbonated beverages and some root beers. Wine, sake, and pure distilled spirits, such as gin, vodka, and whiskey. Most hard ciders. Fats and oils Butter, margarine, vegetable oil, hydrogenated butter, olive oil, shortening, lard, cream, and somemayonnaise. Some commercial salad dressings. Olives. Sweets and desserts Sugar, honey, some syrups, molasses, jelly, and jam. Plain hard candy, marshmallows, and gumdrops. Pure cocoa powder. Plain chocolate. Custard and some pudding mixes. Gelatin desserts, sorbets, frozen ice pops, and sherbet. Cake, cookies, and other desserts prepared with allowed flours. Some commercial ice creams. Cornstarch, tapioca, and rice puddings. Seasoning and other foods Some canned or frozen soups. Monosodium glutamate (MSG). Cider, rice, and wine vinegar. Baking sodaand baking powder. Cream of tartar. Baking and nutritional yeast. Certain soy sauces made without wheat. Ask your dietitian about specific brands that are allowed. Nuts, coconut, and chocolate. Salt, pepper, herbs, spices, flavoring extracts, imitation or artificial flavorings, natural flavorings, and food colorings. Some medicines and supplements. Rice syrups. The items listed above may not be a complete list of foods and beverages you can eat and drink. Contact a dietitian for more information. What foods should I avoid? Fruits Thickened or prepared fruits and some pie fillings. Some fruit snacks and fruit roll-ups. Vegetables Most creamed vegetables and most vegetables canned in sauces. Some commercially prepared vegetablesand salads. Vegetables in a soy sauce marinade or dressing. Grains Barley, bran, bulgur, couscous, cracked wheat, Miranda, farro, lauro, malt, matzo, semolina, wheat germ, and all wheat and rye cereals, including spelt and kamut. Cereals containing malt as a flavoring, such as rice cereal. Noodles, spaghetti, macaroni, most packaged rice mixes, and all mixes containing wheat, rye, barley, or triticale. Meats and other protein foods Any meat or meat alternative containing wheat, rye, barley, or gluten stabilizers. These are often marinated or packaged meats, and precooked or cured meat, such as sausages or meat loaves. Bread-containing products, such as Belizean steak, croquettes, meatballs, and meatloaf. Most tuna canned in vegetable broth. Oracle with hydrolyzed vegetable protein (HVP) injected as part of the basting. Seitan. Imitation fish. Eggs in sauces made from ingredients to avoid. Dairy Commercial chocolate milk drinks and malted milk. Some non-dairy creamers. Any cheese product containing ingredients to avoid. Beverages Certain cereal beverages. Beer, veronique, malted milk, and some root beers. Some hard ciders. Some instant flavored coffees. Some herbal teas made with barley or with barley malt added. Fats and oils Some commercial salad dressings. Sour cream containing modified food starch. Sweets and desserts Some toffees. Chocolate-coated nuts (may be rolled in wheat flour) and some commercial candies and candy bars. Most cakes, cookies, donuts, pastries, and other baked goods. Some commercial ice cream. Ice cream cones. Commercially prepared mixes for cakes, cookies, and other desserts. Bread pudding and other puddings thickened with flour. Products containing brown rice syrup made with barley malt enzyme. Desserts and sweets made with malt flavoring. Seasoning and other foods Some ash powders, some dry seasoning mixes, some gravy extracts, some meat sauces, some ketchups,some prepared mustards, and horseradish. Certain soy sauces. Malt vinegar. Bouillon and bouillon cubes that contain HVP. Some chip dips. Some chewing gum. Yeast extract. Latham's yeast. Caramel color. Some medicines and supplements. The items listed above may not be a complete list of foods and beverages you should avoid. Contact a dietitian for more information. Summary Gluten is a protein that is found in wheat, rye, barley, and some other grains. The gluten-free diet includes all foods that do not contain gluten. If you need help finding gluten-free foods or if you have questions, talk with your dietitian or your health care provider. Read all food labels. Gluten is often added to foods. Always check the ingredient list and look forwarnings that the food may contain gluten. This information is not intended to replace advice given to you by your health care provider. Make sure you discuss any questions you have with your health care provider. Document Revised: 06/07/2022 Document Reviewed: 06/07/2022 [employer] Patient Education 2023 [employer]. 01/29/2025 15:09:12 Gastritis, Adult Gastritis, Adult Gastritis is inflammation of the stomach. There are two kinds of gastritis: Acute gastritis. This kind develops suddenly. Chronic gastritis. This kind is much more common. It develops slowly and lasts for a long time. Gastritis happens when the lining of the stomach becomes weak or gets damaged. Without treatment, gastritis can lead to stomach bleeding and ulcers. What are the causes? This condition may be caused by: An infection. Drinking too much alcohol. Certain medicines. These include steroids, antibiotics, and some epmh-dgr-bmctjxz medicines, such as aspirin or ibuprofen. Having too much acid in the stomach. Having a disease of the stomach. Other causes may include: An allergic reaction. Some cancer treatments (radiation). Smoking cigarettes or the use of products that contain nicotine or tobacco. In some cases, the cause of this condition is not known. What increases the risk? Having a disease of the intestines. Having a disease in which the body's immune system attacks the body (autoimmune disease), such as Crohn's disease. Using aspirin or ibuprofen and other NSAIDs to treat other conditions, such as heart disease or chronic pain. Stress. What are the signs or symptoms? Symptoms of this condition include: Pain or a burning sensation in the upper abdomen. Nausea. Vomiting. An uncomfortable feeling of fullness after eating. Weight loss. Bad breath. Blood in your vomit or stool (feces). In some cases, there are no symptoms. How is this diagnosed? This condition may be diagnosed based on your medical history, a physical exam, and tests. Tests may include: Your medical history and a description of your symptoms. A physical exam. Tests. These can include: ?Blood tests. ?Stool tests. ?A test in which a thin, flexible instrument with a light and a camera is passed down the esophagusand into the stomach (upper endoscopy). ?A test in which a tissue sample is removed to look at it under a microscope (biopsy). How is this treated? This condition may be treated with medicines. The medicines that are used vary depending on the cause of the gastritis. If the condition is caused by a bacterial infection, you may be given antibiotic medicines. If the condition is caused by too much acid in the stomach, you may be given medicines called H2 blockers, proton pump inhibitors, or antacids. Treatment may also involve stopping the use of certain medicines such as aspirin or ibuprofen and other NSAIDs. Follow these instructions at home: Medicines Take pxgn-qma-pyotxab and prescription medicines only as told by your health care provider. If you were prescribed an antibiotic medicine, take it as told by your health care provider. Do notstop taking the antibiotic even if you start to feel better. Alcohol use Do not drink alcohol if: ?Your health care provider tells you not to drink. ?You are , may be , or are planning to become . If you drink alcohol: ?Limit your use to: ?0 1 drink a day for women. ?0 2 drinks a day for men. ?Know how much alcohol is in your drink. In the [place] one drink equals one 12 oz bottle of beer (355 mL), one 5 oz glass of wine (148 mL), or one 1 oz glass of hard liquor (44 mL). General instructions Eat small, frequent meals instead of large meals. Avoid foods and drinks that make your symptoms worse. Talk with your health care provider about ways to manage stress, such as getting regular exercise or practicing deep breathing, meditation, or yoga. Do not use any products that contain nicotine or tobacco. These products include cigarettes, chewing tobacco, and vaping devices, such as e-cigarettes. If you need help quitting, ask your health careprovider. Drink enough fluid to keep your urine pale yellow. Keep all follow-up visits. This is important. Contact a health care provider if: Your symptoms get worse. Your abdominal pain gets worse. Your symptoms return after treatment. You have a fever. Get help right away if: You vomit blood or a substance that looks like coffee grounds. You have black or dark red stools. You are unable to keep fluids down. These symptoms may represent a serious problem that is an emergency. Do not wait to see if the symptoms will go away. Get medical help right away. Call your local emergency services (911 in the [place] Do not drive yourself to the hospital. Summary Gastritis is inflammation of the lining of the stomach that can occur suddenly (acute) or develop slowly over time (chronic). This condition is diagnosed with a medical history, a physical exam, or tests. This condition may be treated with medicines to treat infection or medicines to reduce the amount of acid in your stomach. Follow your health care provider's instructions about taking medicines, making changes to your diet, and knowing when to call for help. This information is not intended to replace advice given to you by your health care provider. Make sure you discuss any questions you have with your health care provider. Document Revised: 11/20/2021 Document Reviewed: 11/20/2021 [employer] Patient Education 2023 [employer]. 01/29/2025 15:09:09 Colonoscopy, Care After Surgery Sal[facility] (CUSTOM) Colonoscopy Care After Surgery Please read the instructions outlined below and refer to this sheet in the next few weeks. These discharge instructions provide you with general information on caring [facility] Your doctor may also give you specific instructions. While your treatment has been planned according to the most current medical practices available, unavoidable complications occasionally occur. If you have any problems or questions after discharge, please call your doctor. ACTIVITY You may resume your regular activity, but move at a slower pace for the next 24 hours. Take frequent rest periods for the next 24 hours. Walking will help get rid of the air and reduce the bloated feeling in your abdomen (belly). No driving for 24 hours (because of the anesthesia (medicine) used during the test). You may shower. Do not sign any important legal documents or operate any machinery for 24 hours (because of the anesthesia used during the test). NUTRITION Drink plenty of fluids. You may resume your normal diet as instructed by your doctor. Begin with a light meal and progress to your normal diet. Heavy or fried foods are harder to digestand may make you feel nauseated (sick to your stomach). Avoid alcoholic beverages for 24 hours or as instructed. MEDICATIONS You may resume your normal medications unless your doctor tells you otherwise. WHAT YOU CAN EXPECT TODAY Some feelings of bloating in the abdomen. Passage of more gas than usual. Spotting of blood in your stool or on the toilet paper. FOLLOW-UP Your doctor will discuss the results of your test with you. SEEK IMMEDIATE MEDICAL ATTENTION IF: There is more than a spotting of blood in your stool. There is abdominal distention (your abdomen is swollen). There is vomiting. You have a temperature over 101.5 F. There is abdominal pain or discomfort that is severe or gets worse throughout the day. 01/29/2025 15:09:05 Hemorrhoids Hemorrhoids Hemorrhoids are swollen veins in and around the rectum or the opening of the butt (anus). There aretwo types of hemorrhoids: Internal. These occur in the veins just inside the rectum. They may poke through to the outside andbecome irritated and painful. External. These occur in the veins outside the anus. They can be felt as a painful swelling or hardlump near the anus. Most hemorrhoids do not cause severe problems. Often, they can be treated at home with diet and lifestyle changes. If home treatments do not help, you may need a procedure to shrink or remove the hemorrhoids. What are the causes? Hemorrhoids are caused by pressure near the anus. This pressure may be caused by: Constipation or diarrhea. Straining to poop. . Obesity. Sitting or riding a bike for a long time. Heavy lifting or other things that cause you to strain. Anal sex. What are the signs or symptoms? Symptoms of this condition include: Pain. Anal itching or irritation. Bleeding from the rectum. Leakage of poop (stool). Swelling of the anus. One or more lumps around the anus. How is this diagnosed? Hemorrhoids can often be diagnosed through a visual exam. Other exams or tests may also be done, such as: A digital rectal exam. This is when your health care provider feels inside your rectum with a gloved finger. Anoscope. This is an exam of the anus using a small tube. A blood test, if you have lost a lot of blood. A sigmoidoscopy or colonoscopy. These are tests to look inside the colon using a tube with a cameraon the end. How is this treated? In most cases, hemorrhoids can be treated at home with diet and lifestyle changes. If these changesdo not help, you may need to have a procedure done. These procedures can make the hemorrhoids smaller or fully remove them. Common procedures include: Rubber band ligation. Rubber bands are placed at the base of the hemorrhoids to cut off their bloodsupply. Sclerotherapy. Medicine is put into the hemorrhoids to shrink them. Infrared coagulation. A type of light energy is used to get rid of the hemorrhoids. Hemorrhoidectomy surgery. The hemorrhoids are removed during surgery. Then, the veins that supply them are tied off. Stapled hemorrhoidopexy surgery. The base of the hemorrhoid is stapled to the wall of the rectum. Follow these instructions at home: Medicines Take clqz-yyh-xlcwvut and prescription medicines only as told by your provider. Use medicated creams or medicines that are put in the rectum (suppositories) as told by your provider. Eating and drinking Eat foods that are high in fiber, such as beans, whole grains, and fresh fruits and vegetables. Ask your provider about taking products that have fiber added to them (fiber supplements). Reduce the amount of fat in your diet. You can do this by eating low-fat dairy products, eating less red meat, and avoiding processed foods. Drink enough fluid to keep your pee (urine) pale yellow. Managing pain and swelling Take warm sitz baths for 20 minutes, 3 4 times a day. This can help ease pain and discomfort. You may do this in a bathtub or you can use a portable sitz bath that fits over the toilet. If told, put ice on the affected area. It may help to use ice packs between sitz baths. ?Put ice in a plastic bag. ?Place a towel between your skin and the bag. ?Leave the ice on for 20 minutes, 2 3 times a day. If your skin turns bright red, remove the ice right away to prevent skin damage. The risk of damageis higher if you cannot feel pain, heat, or cold. General instructions Exercise. Ask your provider how much and what kind of exercise is best for you. In general, you should do moderate exercise for at least 30 minutes on most days of the week (150 minutes each week). You may want to try walking, biking, or yoga. Go to the bathroom when you have the urge to poop. Do not wait. Avoid straining to poop. Keep the anus dry and clean. Use wet toilet paper or moist towelettes after you poop. Do not sit on the toilet for a long time. This can increase blood pooling and pain. Where to find more information National [place] of Diabetes and Digestive and Kidney Diseases: niddk.nih.gov Contact a health care provider if: You have more pain and swelling that do not get better with treatment. You have trouble pooping or you are not able to poop. You have pain or inflammation outside the area of the hemorrhoids. Get help right away if: You are bleeding from your rectum and you cannot get it to stop. This information is not intended to replace advice given to you by your health care provider. Make sure you discuss any questions you have with your health care provider. Document Revised: 03/29/2023 Document Reviewed: 03/29/2023 [employer] Patient Education 2023 [employer]. 01/29/2025 15:09:00 Colon Polyps Colon Polyps Colon polyps are tissue growths inside the colon, which is part of the large intestine. They are one of the types of polyps that can grow in the body. A polyp may be a round bump or a mushroom-shapedgrowth. You could have one polyp or more than one. Most colon polyps are noncancerous (benign). However, some colon polyps can become cancerous over time. Finding and removing the polyps early can help prevent this. What are the causes? The exact cause of colon polyps is not known. What increases the risk? The following factors may make you more likely to develop this condition: Having a family history of colorectal cancer or colon polyps. Being older than 45 years of age. Being younger than 45 years of age and having a significant family history of colorectal cancer or colon polyps or a genetic condition that puts you at higher risk of getting colon polyps. Having inflammatory bowel disease, such as ulcerative colitis or Crohn's disease. Having certain conditions passed from parent to child (hereditary conditions), such as: ?Familial adenomatous polyposis (FAP). ?Hameed syndrome. ?Turcot syndrome. ?Peutz Jeghers syndrome. ?MUTYH-associated polyposis (MAP). Being overweight. Certain lifestyle factors. These include smoking cigarettes, drinking too much alcohol, not gettingenough exercise, and eating a diet that is high in fat and red meat and low in fiber. Having had childhood cancer that was treated with radiation of the abdomen. What are the signs or symptoms? Many times, there are no symptoms. If you have symptoms, they may include: Blood coming from the rectum during a bowel movement. Blood in the stool (feces). The blood may be bright red or very dark in color. Pain in the abdomen. A change in bowel habits, such as constipation or diarrhea. How is this diagnosed? This condition is diagnosed with a colonoscopy. This is a procedure in which a lighted, flexible scope is inserted into the opening between the buttocks (anus) and then passed into the colon to examine the area. Polyps are sometimes found when a colonoscopy is done as part of routine cancer screening tests. How is this treated? This condition is treated by removing any polyps that are found. Most polyps can be removed during a colonoscopy. Those polyps will then be tested for cancer. Additional treatment may be needed depending on the results of testing. Follow these instructions at home: Eating and drinking Eat foods that are high in fiber, such as fruits, vegetables, and whole grains. Eat foods that are high in calcium and vitamin D, such as milk, cheese, yogurt, eggs, liver, fish, and broccoli. Limit foods that are high in fat, such as fried foods and desserts. Limit the amount of red meat, precooked or cured meat, or other processed meat that you eat, such as hot dogs, sausages, acosta, or meat loaves. Limit sugary drinks. Lifestyle Maintain a healthy weight, or lose weight if recommended by your health care provider. Exercise every day or as told by your health care provider. Do not use any products that contain nicotine or tobacco, such as cigarettes, e- cigarettes, and chewing tobacco. If you need help quitting, ask your health care provider. Do not drink alcohol if: ?Your health care provider tells you not to drink. ?You are , may be , or are planning to become . If you drink alcohol: ?Limit how much you use to: ?0 1 drink a day for women. ?0 2 drinks a day for men. ?Know how much alcohol is in your drink. In the [place] one drink equals one 12 oz bottle of beer (355 mL), one 5 oz glass of wine (148 mL), or one 1 oz glass of hard liquor (44 mL). General instructions Take vqqi-bht-havrdzy and prescription medicines only as told by your health care provider. Keep all follow-up visits. This is important. This includes having regularly scheduled colonoscopies. Talk to your health care provider about when you need a colonoscopy. Contact a health care provider if: You have new or worsening bleeding during a bowel movement. You have new or increased blood in your stool. You have a change in bowel habits. You lose weight for no known reason. Summary Colon polyps are tissue growths inside the colon, which is part of the large intestine. They are one type of polyp that can grow in the body. Most colon polyps are noncancerous (benign), but some can become cancerous over time. This condition is diagnosed with a colonoscopy. This condition is treated by removing any polyps that are found. Most polyps can be removed during a colonoscopy. This information is not intended to replace advice given to you by your health care provider. Make sure you discuss any questions you have with your health care provider. Document Revised: 11/04/2020 Document Reviewed: 11/04/2020 [employer] Patient Education 2023 [employer]. Follow Up Care 01/02/2025 15:39:10 With:Flash GRAY, TENA Patel, [facility] Address: [address] [place] [address], [address] [phone] When: Unknown Comments:call office to arrange follow up [facility] 07-02-2025 NoteProgress Note-Physician Patient: TANJA CARRERO Age: 59 years Sex: Female : 1965 Associated Diagnoses: None Author: Zack Vale Jr., DO Postoperative Information Postoperative disposition: Postoperative disposition: Home. Optimetrix number: Optimetrix number [id number]. Anesthetic utilized: General. Physical Examination Vital Signs 01/29/2025 15:05 EDT Respiratory Rate Monitored 21 br/min 01/29/2025 15:05 EDT Heart Rate Monitored 90 bpm 01/29/2025 15:05 EDT Systolic Blood Pressure 127 mmHg Diastolic Blood Pressure 84 mmHg SpO2 99 % 01/29/2025 15:00 EDT Heart Rate Monitored 94 bpm 01/29/2025 15:00 EDT SpO2 100 % 01/29/2025 15:00 EDT Respiratory Rate Monitored 23 br/min 01/29/2025 15:00 EDT Systolic Blood Pressure 122 mmHg Diastolic Blood Pressure 81 mmHg 01/29/2025 14:58 EDT Respiratory Rate Monitored 24 br/min SpO2 100 % 01/29/2025 14:58 EDT Heart Rate Monitored 99 bpm 01/29/2025 14:58 EDT Systolic Blood Pressure 114 mmHg Diastolic Blood Pressure 64 mmHg 01/29/2025 14:58 EDT Temperature Temporal Artery 36.8 DegC Pain Assessment: Controlled. General: Awake, Alert, Appropriate. Respiratory: Adequate air exchange, Non-labored. Cardiovascular: Stable, Normal peripheral perfusion. Neurological: Neurologic exam at baseline. No changes.. Assessment Anesthetic outcome No anesthetic complications noted. No nausea/vomiting. Review / Management Condition: Stable. Plan Transfer/Discharge: Transfer/Discharge Discharge when meets criteria ( From PACU to Ambulatory Surgery Unit, and To home ).[facility]Result Comment: Electronically Signed By: Zack Vale Jr., DO\.br\Date and Time Signed: 01/29/25 15:57 [id number] NotePatient Education - Text Colonoscopy Care After Surgery Please read the instructions outlined below and refer to this sheet in the next few weeks. These discharge instructions provide you with general information on caring for yourself after you leave thehospital. Your doctor may also give you specific instructions. While your treatment has been planned according to the most current medical practices available, unavoidable complications occasionally occur. If you have any problems or questions after discharge, please call your doctor. ACTIVITY You may resume your regular activity, but move at a slower pace for the next 24 hours. Take frequent rest periods for the next 24 hours. Walking will help get rid of the air and reduce the bloated feeling in your abdomen (belly). No driving for 24 hours (because of the anesthesia (medicine) used during the test). You may shower. Do not sign any important legal documents or operate any machinery for 24 hours (because of the anesthesia used during the test). NUTRITION Drink plenty of fluids. You may resume your normal diet as instructed by your doctor. Begin with a light meal and progress to your normal diet. Heavy or fried foods are harder to digestand may make you feel nauseated (sick to your stomach). Avoid alcoholic beverages for 24 hours or as instructed. MEDICATIONS You may resume your normal medications unless your doctor tells you otherwise. WHAT YOU CAN EXPECT TODAY Some feelings of bloating in the abdomen. Passage of more gas than usual. Spotting of blood in your stool or on the toilet paper. FOLLOW-UP Your doctor will discuss the results of your test with you. SEEK IMMEDIATE MEDICAL ATTENTION IF: There is more than a spotting of blood in your stool. There is abdominal distention (your abdomen is swollen). There is vomiting. You have a temperature over 101.5 F. There is abdominal pain or discomfort that is severe or gets worse throughout the day. Gastroenterology Upper Endoscopy, Adult, Care After After the procedure, it is common to have a sore throat. It is also common to have: ??? Mild stomach pain or discomfort. ??? Bloating. ??? Nausea. Follow these instructions at home: The instructions below may help you care for yourself at home. Your health care provider may give you more instructions. If you have questions, ask your health care provider. ??? If you were given a sedative during the procedure, it can affect you for several hours. Do not drive or operate machinery until your health care provider says that it is safe. ??? If you will be going home right after the procedure, plan to have a responsible adult: ? Take you home from the hospital or clinic. You will not be allowed to drive. ? Care for you for the time you are told. ??? Follow instructions from your health care provider about what you may eat and drink. ??? Return to your normal activities as told by your health care provider. Ask your health care provider what activities are safe for you. ??? Take kuej-fiy-cpbxyiy and prescription medicines only as told by your health care provider. Contact a health care provider if you: ??? Have a sore throat that lasts longer than one day. ??? Have trouble swallowing. ??? Have a fever. Get help right away if you: ??? Vomit blood or your vomit looks like coffee grounds. ??? Have bloody, black, or tarry stools. ??? Have a very bad sore throat or you cannot swallow. ??? Have difficulty breathing or very bad pain in your chest or abdomen. These symptoms may be an emergency. Get help right away. Call 911. ??? Do not wait to see if the symptoms will go away. ??? Do not drive yourself to the hospital. Summary ??? After the procedure, it is common to have a sore throat, mild stomach discomfort, bloating, andnausea. ??? If you were given a sedative during the procedure, it can affect you for several hours. Do not drive until your health care provider says that it is safe. ??? Follow instructions from your health care provider about what you may eat and drink. ??? Return to your normal activities as told by your health care provider. This information is not intended to replace advice given to you by your health care provider. Make sure you discuss any questions you have with your health care provider. Document Revised: 10/26/2022 Document Reviewed: 10/26/2022 [employer] Patient Education ? 2023 [employer]. Hemorrhoids Hemorrhoids are swollen veins in and around the rectum or the opening of the butt (anus). There aretwo types of hemorrhoids: ??? Internal. These occur in the veins just inside the rectum. They may poke through to the outsideand become irritated and painful. ??? External. These occur in the veins outside the anus. They can be felt as a painful swelling or hard lump near the anus. Most hemorrhoids do not cause severe problems. Often, they can (more content not included)...[facility] NoteEndoscopic Procedure Report - Other Patient: TANJA CARRERO Age: 59 years Sex: Female : 1965 Associated Diagnoses: None Author: Saumya Pulido MD Pre-Procedure Procedure Date 01/29/2025 14:53:00 . Procedure Type: Colonoscopy with removal of tumor(s), polyp(s), or other lesion(s) by snare technique, biopsy. Procedure provider Performed by Saumya Pulido MD. Current history and physical Reviewed. Appendectomy ([id number]).. Past Medical History No active or resolved past medical history items have been selected or recorded.. Family History Rheumatoid arthritis Mother Hypertension Father Mother Hypothyroidism Mother Ovarian cancer Mother . Procedure History Appendectomy ([id number]).. Colorectal neoplasm risk assessment Average risk. Informed Consent After discussing the rationale, risks and benefits, and alternatives to this procedure, the patient provided signed consent for the procedure. Pre-procedure diagnosis: Diarrhea, clinically significant. Medications (Selected) Inpatient Medications Ordered Sodium Chloride 0.9% IV Cele 1000 mL 1,000 mL: 1,000 mL, IV, 20 mL/hr, Routine, Start date 01/29/25 12:18:00 EDT, 50 hour(s), Total volume (mL): 1,000, 89 kg, 2.04, m2 Prescriptions Prescribed Linzess 145 mcg oral capsule: 145 mcg = 1 cap(s), Oral, Daily, # 30 cap(s), Refills(s) 3, Pharmacy:[facility], 169, cm, 01/02/25 13:05:00 EDT, Height/Length Dosing, 89, kg, 01/02/25 13:05:00 EDT, Weight Dosing Metamucil 3.4 g/5.2 g oral powder: 3.4 gram, Oral, TID, PRN for constipation, # 1,042 gram, Refills(s) 0, Pharmacy: [facility], 169, cm, 01/02/25 13:05:00 EDT, Height/Length Dosing, 89, kg, 01/02/25 13:05:00 EDT, Weight Dosing Nexium 40 mg Cap-EC: 40 mg = 1 cap(s), Oral, Daily, # 90 cap(s), Refills(s) 0, Pharmacy: [facility], 169, cm, 01/02/25 13:05:00 EDT, Height/Length Dosing, 89, kg, 01/02/25 13:05:00 EDT, Weight Dosing famotidine 40 mg Tab: 40 mg = 1 tab(s), Oral, Once a day (at bedtime), # 90 tab(s), Refills(s) 0, Pharmacy: [facility], 169, cm, 01/02/25 13:05:00 EDT, Height/Length Dosing, 89, kg, 01/02/25 13:05:00 EDT, Weight Dosing Documented Medications Documented Anoro Ellipta: 1 puff(s), Inhalation, Daily, Refill(s) 0 Flonase: 2 spray(s), Nasal, Daily, Refill(s) 0, Allergy symptoms Magnesium: Magnesium, See Instructions Topamax 100 mg Tab: 100 mg = 1 tab(s), Oral, BID, along with 25mg, Refills(s) 0 Topamax 25 mg Tab: 25 mg = 1 tab(s), Oral, BID, along with 100mg, Refills(s) 0 Vistaril 25 mg Cap: 25 mg = 1 cap(s), Oral, q8hr, PRN as needed for anxiety, Refills(s) 0 Vitamin B12: Refills(s) 0, Prophylaxis Zoloft 100 mg Tab: 100 mg = 1 tab(s), Oral, Daily, Refills(s) 0, Depression albuterol HFA 90 mcg/inh MDI: 2 puff(s), Inhalation, q6hr as needed for wheezing, Refill(s) 0 atorvastatin 10 mg Tab: 10 mg = 1 tab(s), Oral, Daily, Refills(s) 0, High cholesterol busPIRone 10 mg Tab: 10 mg = 1 tab(s), Oral, BID, Refills(s) 0 cetirizine 10 mg Tab: 10 mg = 1 tab(s), Oral, Daily, Refills(s) 0, Allergy symptoms levothyroxine 25 mcg (0.025 mg) Tab: 25 mcg = 1 tab(s), Oral, Daily, Refills(s) 0, Thyroid traZODONE 50 mg Tab: 50 mg = 1 tab(s), Oral, Once a day (at bedtime), Refills(s) 0, Sleep reviewed. ASA Classification: Class II. . Monitoring: See anesthesia record. . Procedure The procedure was performed in the hospital. See anesthesia record for sedation given during procedure. The patient was positioned starting in the left lateral decubitus position. Endoscope type usedwas a pediatric-size. The endoscope was lubricated then introduced through the anus. The scope was advanced to the terminal ileum. No difficulties encountered during the procedure. The bowel preparation quality was adequate (see polyps greater than or equal to 6 millimeters). The patient tolerated the procedure well. Last colonoscopy Time to cecum: 5 min Time of withdrawal:19 min Findings 1. Moderate internal hemorrhoids 2. 2 sessile polyps in the ascending colon and 1 sessile polyp in the transverse colon, 3-5 mm in size, all resected with cold snare completely and retrieved 3. Otherwise normal colonic mucosa, random biopsies were taken to rule out microscopic colitis 4. Normal examined terminal ileum Images Procedure images: [email or web address]_hd_video_2024___[id number].jpg Rec1_hd_video_2024__[id number].jpg Rec1_hd_video_2024__[id number].jpg Rec1_hd_video_2024__[id number].jpg Rec1_hd_video_2024__[id number].jpg Rec1_hd_video_2024__[id number].jpg Rec1_hd_video_2024__[id number].jpg (Inserted Image. U (more content not included)...[facility] HospitalComment on above:Result Comment: Electronically Signed By: Flash GRAY, Saumya Maynard\.br\Date and Time Signed: 01/29/25 14:57 EDTOther Comment: Missing Attachment - attachment storage system not supported [id number] Can be viewed in source systemMisspaul a. [facility] Attachment - attachment storage system not supported [id number] Can be viewed insource systemMissing Attachment - attachment storage system not supported [id number] Can be viewed in source systemMisspaul [facility]. [facility] Attachment - attachment storage system not supported [phone] Can be viewed in source systemM[facility] Attachment - attachment storage system not supported [id number] Can be viewed in source systemMisspaul [facility]. [facility] Attachment - attachment storage system not supported [id number] Can be viewed in source systemMisspaul [facility]. [facility] Attachment - attachment storage system not supported [id number] Can be viewed in source systemM[facility]cl [facility] Attachment - attachment storage system not supported [id number] Can be viewed in source systemM[facility]cl [facility] Attachment - attachment storage system not supported [id number] Can be viewed in source systemM[facility]cl [facility] Attachment - attachment storage system not supported [id number] Can be viewed in source systemMisspaul [facility]. [facility] Attachment - attachment storage system not supported [id number] Can be viewed in source systemM[facility]cl [facility] Attachment - attachment storage system not supported [id number] Can be viewed in source systemM[facility]cl [facility] Attachment - attachment storage system not supported [id number] Can be viewed in source systemAt[facility] Attachment - attachment storage system not supported [id number] Can be viewed in source systemM[facility]cl [facility] Attachment - attachment storage system not supported [id number] Can be viewed in source systemM[facility]cl [facility] Attachment - attachment storage system not supported [id number] Can be viewed in source system 01-29-2025 NoteEndoscopic Procedure Report - Other Patient: TANJA CARRERO Age: 59 years Sex: Female : 1965 Associated Diagnoses: None Author: Saumya Pulido MD Pre-Procedure Procedure Date 01/29/2025 14:27:00 . Procedure Type: Esophagogastroduodenoscopy with biopsy. Procedure provider Performed by Saumya Pulido MD. Current history and physical Documented on chart. Informed Consent After discussing the rationale, risks and benefits, and alternatives to this procedure, the patient provided signed consent for the procedure. Pre-procedure diagnosis: GERD. Medications Anticoagulant/antiplatelet None. ASA Classification: Class III. . Monitoring: See anesthesia record. . Procedure The procedure was performed in the hospital. See anesthesia record for sedation given during procedure. The patient was positioned starting in the left lateral decubitus position and with safety measures. Endoscope type used was an adult- size, introduced orally, advanced to the 3rd portion of the duodenum. No difficulty was encountered during the procedure. Views were excellent. The patient tolerated the procedure well. Findings 1. Esophageal landmarks identified, small hiatal hernia noted 2. Mild nonspecific patchy erythema in the body and fundus of the stomach, random biopsies were taken for histology and rule out H. pylori 3. Normal examined duodenum, random biopsies were taken to rule out celiac disease Images Procedure images: [id number]_hd_video_2024__[id number].jpg Rec1_hd_video_2024__[id number].jpg Rec1_hd_video_2024__[id number].jpg Rec1_hd_video_2024__[id number].jpg Rec1_hd_video_2024__[id number].jpg [id number]_hd_video_2024__[id number].jpg . Post-Procedure Complications: none. Estimated blood loss: minimal. Specimens: sent to pathology. Devices/ implants: none left in place. Impression and Plan 1. Esophageal landmarks identified, small hiatal hernia noted 2. Mild nonspecific patchy erythema in the body and fundus of the stomach, random biopsies were taken for histology and rule out H. pylori 3. Normal examined duodenum, random biopsies were taken to rule out celiac disease Recommendations: -Resume previous diet -Resume home medications -Await pathology results, follow in GI clinic in 1-2 after dischargeThe Bellevue HospitalComment on above:Result Comment: Electronically Signed By: Flash GRAY, Saumya Maynard\.br\Date and Time Signed: 01/29/25 14:27 EDTOther Comment: Missing Attachment - attachment storage system not supported [id number] Can be viewed in source system Missing Attachment - attachment storage system not supported [id number] Can be viewed in source systemMissing Attachment - attachment storage system not supported [id number] Can be viewed in source systemMissing Attachment - attachment storage system not supported [id number] Can be viewed in source systemMissing Attachment - attachment storage system not supported [id number] Can be viewed in source systemMissing Attachment - attachment storage system not supported [id number] Can be viewed in source [id number] NoteHistory and Physical Patient: TANJA CARRERO Age: 59 years Sex: Female : 1965 Associated Diagnoses: None Author: Flash GRAY, Saumya Maynard Preoperative Information Indication for procedure and diagnosis: Hematemesis, GERD, diarrhea Chief Complaint as above Review of Systems All systems reviewed, negative except as mentioned above Health Status Current medications: (Selected) Inpatient Medications Ordered Sodium Chloride 0.9% IV Cele 1000 mL 1,000 mL: 1,000 mL, IV, 20 mL/hr, Routine, Start date 01/29/25 12:18:00 EDT, 50 hour(s), Total volume (mL): 1,000, 89 kg, 2.04, m2 Prescriptions Prescribed Linzess 145 mcg oral capsule: 145 mcg = 1 cap(s), Oral, Daily, # 30 cap(s), Refills(s) 3, [facility]acy:[facility], cm, 01/02/25 13:05:00 EDT, Height/Length Dosing, 89, kg, 01/02/25 13:05:00 EDT, Weight Dosing Metamucil 3.4 g/5.2 g oral powder: 3.4 gram, Oral, TID, PRN for constipation, # 1,042 gram, Refills(s) 0, Pharmacy: [facility], 169, cm, 01/02/25 13:05:00 EDT, Height/Length Dosing, 89, kg, 01/02/25 13:05:00 EDT, Weight Dosing Nexium 40 mg Cap-EC: 40 mg = 1 cap(s), Oral, Daily, # 90 cap(s), Refills(s) 0, Pharmacy: [facility], 169, cm, 01/02/25 13:05:00 EDT, Height/Length Dosing, 89, kg, 01/02/25 13:05:00 EDT, Weight Dosing famotidine 40 mg Tab: 40 mg = 1 tab(s), Oral, Once a day (at bedtime), # 90 tab(s), Refills(s) 0, Pharmacy: [facility], 169, cm, 01/02/25 13:05:00 EDT, Height/Length Dosing, 89, kg, 01/02/25 13:05:00 EDT, Weight Dosing Documented Medications Documented Anoro Ellipta: 1 puff(s), Inhalation, Daily, Refill(s) 0 Flonase: 2 spray(s), Nasal, Daily, Refill(s) 0, Allergy symptoms Magnesium: Magnesium, See Instructions Topamax 100 mg Tab: 100 mg = 1 tab(s), Oral, BID, along with 25mg, Refills(s) 0 Topamax 25 mg Tab: 25 mg = 1 tab(s), Oral, BID, along with 100mg, Refills(s) 0 Vistaril 25 mg Cap: 25 mg = 1 cap(s), Oral, q8hr, PRN as needed for anxiety, Refills(s) 0 Vitamin B12: Refills(s) 0, Prophylaxis Zoloft 100 mg Tab: 100 mg = 1 tab(s), Oral, Daily, Refills(s) 0, Depression albuterol HFA 90 mcg/inh MDI: 2 puff(s), Inhalation, q6hr as needed for wheezing, Refill(s) 0 atorvastatin 10 mg Tab: 10 mg = 1 tab(s), Oral, Daily, Refills(s) 0, High cholesterol busPIRone 10 mg Tab: 10 mg = 1 tab(s), Oral, BID, Refills(s) 0 cetirizine 10 mg Tab: 10 mg = 1 tab(s), Oral, Daily, Refills(s) 0, Allergy symptoms levothyroxine 25 mcg (0.025 mg) Tab: 25 mcg = 1 tab(s), Oral, Daily, Refills(s) 0, Thyroid traZODONE 50 mg Tab: 50 mg = 1 tab(s), Oral, Once a day (at bedtime), Refills(s) 0, Sleep, Home Medications (18) Active albuterol HFA 90 mcg/inh MDI 2 puff(s), PRN, Inhalation, q6hr Anoro Ellipta 1 puff(s), Inhalation, Daily atorvastatin 10 mg Tab 10 mg = 1 tab(s), Oral, Daily busPIRone 10 mg Tab 10 mg = 1 tab(s), Oral, BID cetirizine 10 mg Tab 10 mg = 1 tab(s), Oral, Daily famotidine 40 mg Tab 40 mg = 1 tab(s), Oral, Once a day (at bedtime) Flonase 2 spray(s), Nasal, Daily levothyroxine 25 mcg (0.025 mg) Tab 25 mcg = 1 tab(s), Oral, Daily Linzess 145 mcg oral capsule 145 mcg = 1 cap(s), Oral, Daily Magnesium See Instructions Metamucil 3.4 g/5.2 g oral powder 3.4 gram, PRN, Oral, TID Nexium 40 mg Cap-EC 40 mg = 1 cap(s), Oral, Daily Topamax 100 mg Tab 100 mg = 1 tab(s), Oral, BID Topamax 25 mg Tab 25 mg = 1 tab(s), Oral, BID traZODONE 50 mg Tab 50 mg = 1 tab(s), Oral, Once a day (at bedtime) Vistaril 25 mg Cap 25 mg = 1 cap(s), PRN, Oral, q8hr Vitamin B12 Zoloft 100 mg Tab 100 mg = 1 tab(s), Oral, Daily Problem list: All Problems Tobacco user / SNOMED CT 432822574 / Confirmed Unintentional weight loss / SNOMED CT 7827161293 / Confirmed Seizures / SNOMED CT 047719356 / Confirmed Lumbosacral spondylosis / SNOMED CT 327190731 / Confirmed Constipation / SNOMED CT 27708747 / Confirmed GERD (gastroesophageal reflux disease) / SNOMED CT 133602301 / Confirmed Seasonal allergies / SNOMED CT 1095528280 / Confirmed Insomnia / SNOMED CT 576385815 / Confirmed Migraines / SNOMED CT 64447184 / Confirmed Anxiety / SNOMED CT 04870106 / Confirmed Depression / SNOMED CT 75007199 / Confirmed Hypokalemia / SNOMED CT 09152035 / Confirmed Hyperlipidemia / SNOMED CT 51115531 / Confirmed Thyroid nodule / SNOMED CT 240269347 / Confirmed Hypothyroidism / SNOMED CT 74328664 / Confirmed Anemia / SNOMED CT 018579327 / Confirmed Raynaud's disease / SNOMED CT 671858475 / Confirmed Hematemesis / SNOMED CT 06436761 / Confirmed Diarrhea / SNOMED CT 375944063 / Confirmed Histories Past Medical History: No active or resolved past medical history items have been selected or recorded. Family History: Father Hypertension Mother Hypertension Rheumatoid arthritis Hypothyroidism Ovarian cancer Procedure history: Appendectomy ([id number]). Social History Social & Psych (more content not included)...[facility] HospitalComment on above:Result Comment: Electronically Signed By: Saumya Pulido MD\.br\Date and Time Signed: 01/29/25 14:18 [id number] Evaluation + Plan noteExtracted from:Title:ANES Post-operative Note - GeneralAuthor:Zack Vale Jr., DO GDate:01/29/25 Plan Transfer/Discharge: Transfer/Discharge Discharge when meets criteria ( From PACU to Ambulatory Surgery Unit, and To home ). Extracted from:Title:1Preop H&PAuthor:Saumya Pluido MDate:01/29/25 Impression and Plan Impression: Hematemesis, GERD, diarrhea Plan: -EGD and Colonoscopy Extracted from:Title:ANES Pre-operative Note - EndoAuthor:Zack Vale Jr., DOate:01/29/25 Plan [place] [employer] (ASA) physical status classification: Class III. Anesthetic Preoperative Plan: Anesthesia General, and -TIVA.[facility] 07-02-2025 NoteProgress Note-Physician Patient: TANJA CARRERO Age: 59 years Sex: Female : 1965 Associated Diagnoses: None Author: Zack Vale Jr., DO Preoperative Information Anesthesia history: Patient history: No prior anesthetic problems. Informed consent: Signed by patient. Re-evaluation prior to induction: Initial evaluation reviewed: No significant change. Review of Systems Respiratory: Negative except as documented in history of present illness. Cardiovascular: Negative except as documented in history of present illness. Health Status Allergies: Allergic Reactions (Selected) No Known Allergies No Known Medication Allergies, Allergies (2) Active Severity Reaction No Known Allergies None Documented No Known Medication Allergies None Documented Current medications: (Selected) Inpatient Medications Ordered Sodium Chloride 0.9% IV Cele 1000 mL 1,000 mL: 1,000 mL, IV, 20 mL/hr, Routine, Start date 01/29/25 12:18:00 EDT, 50 hour(s), Total volume (mL): 1,000, 89 kg, 2.04, m2 Prescriptions Prescribed Linzess 145 mcg oral capsule: 145 mcg = 1 cap(s), Oral, Daily, # 30 cap(s), Refills(s) 3, Pharmacy:[facility], 169, cm, 01/02/25 13:05:00 EDT, Height/Length Dosing, 89, kg, 01/02/25 13:05:00 EDT, Weight Dosing Metamucil 3.4 g/5.2 g oral powder: 3.4 gram, Oral, TID, PRN for constipation, # 1,042 gram, Refills(s) 0, Pharmacy: [facility], 169, cm, 01/02/25 13:05:00 EDT, Height/Length Dosing, 89, kg, 01/02/25 13:05:00 EDT, Weight Dosing Nexium 40 mg Cap-EC: 40 mg = 1 cap(s), Oral, Daily, # 90 cap(s), Refills(s) 0, Pharmacy: [facility], 169, cm, 01/02/25 13:05:00 EDT, Height/Length Dosing, 89, kg, 01/02/25 13:05:00 EDT, Weight Dosing famotidine 40 mg Tab: 40 mg = 1 tab(s), Oral, Once a day (at bedtime), # 90 tab(s), Refills(s) 0, Pharmacy: [facility], 169, cm, 01/02/25 13:05:00 EDT, Height/Length Dosing, 89, kg, 01/02/25 13:05:00 EDT, Weight Dosing Documented Medications Documented Anoro Ellipta: 1 puff(s), Inhalation, Daily, Refill(s) 0 Flonase: 2 spray(s), Nasal, Daily, Refill(s) 0, Allergy symptoms Magnesium: Magnesium, See Instructions Topamax 100 mg Tab: 100 mg = 1 tab(s), Oral, BID, along with 25mg, Refills(s) 0 Topamax 25 mg Tab: 25 mg = 1 tab(s), Oral, BID, along with 100mg, Refills(s) 0 Vistaril 25 mg Cap: 25 mg = 1 cap(s), Oral, q8hr, PRN as needed for anxiety, Refills(s) 0 Vitamin B12: Refills(s) 0, Prophylaxis Zoloft 100 mg Tab: 100 mg = 1 tab(s), Oral, Daily, Refills(s) 0, Depression albuterol HFA 90 mcg/inh MDI: 2 puff(s), Inhalation, q6hr as needed for wheezing, Refill(s) 0 atorvastatin 10 mg Tab: 10 mg = 1 tab(s), Oral, Daily, Refills(s) 0, High cholesterol busPIRone 10 mg Tab: 10 mg = 1 tab(s), Oral, BID, Refills(s) 0 cetirizine 10 mg Tab: 10 mg = 1 tab(s), Oral, Daily, Refills(s) 0, Allergy symptoms levothyroxine 25 mcg (0.025 mg) Tab: 25 mcg = 1 tab(s), Oral, Daily, Refills(s) 0, Thyroid traZODONE 50 mg Tab: 50 mg = 1 tab(s), Oral, Once a day (at bedtime), Refills(s) 0, Sleep, Home Medications (18) Active albuterol HFA 90 mcg/inh MDI 2 puff(s), PRN, Inhalation, q6hr Anoro Ellipta 1 puff(s), Inhalation, Daily atorvastatin 10 mg Tab 10 mg = 1 tab(s), Oral, Daily busPIRone 10 mg Tab 10 mg = 1 tab(s), Oral, BID cetirizine 10 mg Tab 10 mg = 1 tab(s), Oral, Daily famotidine 40 mg Tab 40 mg = 1 tab(s), Oral, Once a day (at bedtime) Flonase 2 spray(s), Nasal, Daily levothyroxine 25 mcg (0.025 mg) Tab 25 mcg = 1 tab(s), Oral, Daily Linzess 145 mcg oral capsule 145 mcg = 1 cap(s), Oral, Daily Magnesium See Instructions Metamucil 3.4 g/5.2 g oral powder 3.4 gram, PRN, Oral, TID Nexium 40 mg Cap-EC 40 mg = 1 cap(s), Oral, Daily Topamax 100 mg Tab 100 mg = 1 tab(s), Oral, BID Topamax 25 mg Tab 25 mg = 1 tab(s), Oral, BID traZODONE 50 mg Tab 50 mg = 1 tab(s), Oral, Once a day (at bedtime) Vistaril 25 mg Cap 25 mg = 1 cap(s), PRN, Oral, q8hr Vitamin B12 Zoloft 100 mg Tab 100 mg = 1 tab(s), Oral, Daily , Medications (1) Active Scheduled: (0) Continuous: (1) Sodium Chloride 0.9% 1,000 mL 1,000 mL, IV, 20 mL/hr PRN: (0) Problem list: All Problems Anemia / SNOMED CT 567110980 / Confirmed Anxiety / SNOMED CT 46896456 / Confirmed Constipation / SNOMED CT 78621105 / Confirmed Depression / SNOMED CT 78139215 / Confirmed Diarrhea / SNOMED CT 251202381 / Confirmed GERD (gastroesophageal reflux disease) / SNOMED CT 179042617 / Confirmed Hematemesis / SNOMED CT 67088930 / Confirmed Hyperlipidemia / SNOMED CT 25089857 / Confirmed Hypokalemia / SNOMED CT 63756760 / Confirmed Hypothyroidism / SNOMED CT 18598368 / Confirmed Insomnia / SNOMED CT 038007715 / Confirmed Lumbosacral spondylosis / SNOMED CT 577522561 / Confirmed Migraines / SNOMED CT 33359287 / Confirmed Raynaud's disease / SNOMED CT 266839933 / Confirmed Seasonal allergies / SNOMED CT 5036895669 / Co (more content not included)... [facility] HospitalComment on above:Result Comment: Electronically Signed By: Zack Vale Jr., DO\.[place]\Date and Time Signed: 01/29/25 13:12 EDT 01-13-2025 History of Present illness Narrative* Minda Yeboah NP - 01/13/2025 1:34 PM EDTAssociated Problem(s): Rheumatoid arthritis, unspecified (HCC) Is having a lot of pain Has fu appt with Rheum in 01/2025 * SHARON QUIGLEY - 01/13/2025 1:00 PM EDT Pt is very weak and fatigue Shaky, dizzy * Minda Yeboah NP - 01/13/2025 1:00 PM EDT Images from the original note were not included. Tanja Carrero is a 59 y.o. female presents with chief complaint of Follow-up HPI: 18 pound since 09/2024: no intentional Has seen GI , is going to have EGD/Colonoscopy 01/29/25, changed stomach pills: nexium/pepcid, also gave her linzess. Is having diarrhea: 5-6 times daily, mostly watery, no belly pain. +nausea, few episodes of vomiting. Dentures: 2 months ago. Smoking: X 40 years, 1ppd, SUBJECTIVE: MEDICATIONS: Current Outpatient Medications Medication Instructions [...] (ABILIFY) 5 mg, Oral, Daily atorvastatin (LIPITOR) 80 mg, Oral, Daily cetirizine (ZYRTEC) 10 mg, Oral, Daily cholecalciferol (VITAMIN D-3) 50 mcg, Oral, Daily cyclobenzaprine (FLEXERIL) 5 mg, Oral, Daily PRN esomeprazole (NEXIUM) 40 mg, Daily famotidine (PEPCID) 40 mg, Nightly fluticasone (Flonase) 50 MCG/ACT nasal spray 2 sprays, Each Nostril, Daily folic acid (FOLVITE) 1 mg, Daily ibuprofen 800 mg, Every 8 hours PRN levothyroxine (SYNTHROID) 50 mcg, Oral, Daily before breakfast Linzess 145 mcg, Daily magnesium oxide (MAG-OX) 400 mg, Oral, 2 times daily methotrexate 12.5 mg, Weekly QUEtiapine (SEROQUEL) 150 mg, Oral, Nightly sertraline [...] palpitations and leg swelling. Gastrointestinal: Positive for diarrhea. Negative for abdominal pain, blood in stool, constipation,nausea and vomiting. Genitourinary: Negative for difficulty urinating, dysuria and frequency. Musculoskeletal: Positive for arthralgias. Negative for back pain, joint swelling and myalgias. Skin: Negative for rash and wound. Neurological: Negative for dizziness, tremors, seizures, syncope and headaches. Psychiatric/Behavioral: Negative for behavioral problems, self-injury and suicidal ideas. The patient is not nervous/anxious. Hematological: Does not bruise/bleed easily. Endocrine: Negative for polydipsia, polyphagia and polyuria. Allergic/Immunologic: Negative for environmental allergies and food allergies. PAST MEDICAL HISTORY Past Medical History: Diagnosis Date Abnormal chest CT Age-related osteoporosis without current pathological fracture 07/25/2023 Anemia Anxiety At low risk for fall Chronic pain Constipation COVID-19 virus detected Depression with anxiety 08/14/2023 10/20/22: MARY 7 score=18, PHQ 9 score=18 Elevated serum creatinine 07/27/2023 Elevated serum glucose Environmental and seasonal allergies 08/20/2023 MARY (generalized anxiety disorder) 07/22/2023 GERD (gastroesophageal reflux disease) 08/14/2023 HLD (hyperlipidemia) 08/14/2023 Hypokalemia Hypomagnesemia 08/14/2023 Hypothyroidism (acquired) 07/03/2023 Insomnia 08/14/2023 Lumbar spine pain Major depressive disorder with single episode, in remission 07/03/2023 Migraines 08/14/2023 Mild episode of recurrent major depressive disorder Obesity with body mass index (BMI) of 30.0 to 39.9 09/11/2023 THOMAS (obstructive sleep apnea) 08/14/2023 sleep study: AHI 7, minimum oxygen saturation is 87% Osteoporosis 08/14/2023 Postmenopause RA (rheumatoid arthritis) (HCC) 08/14/2023 Seizures (HCC) 08/14/2023 Spondylosis, lumbosacral 08/14/2023 Thyroid enlargement 09/11/2023 Thyroid nodule 09/11/2023 Tobacco user 08/14/2023 Past Surgical History: Procedure Laterality Date APPENDECTOMY 02/23/2007 family history includes Arthritis in her mother; Cancer in her mother; Heart disease in her father,maternal grandmother, and another family member; Hypertension in her father, mother, and another family member; Hypothyroidism in her mother; Rheum arthritis in her mother. OBJECTIVE: Visit Vitals Smoking Status Every Day Physical Exam Vitals and nursing note reviewed. [...] Tenderness: There is no abdominal tenderness. Musculoskeletal: Cervical back: Normal range of motion and neck supple. Right lower leg: No edema. Left lower leg: No edema. Skin: General: Skin is warm and dry. [...] file. Problem List Items Addressed This Visit GERD (gastroesophageal reflux disease) Recommendations: freq small meals, nothing to eat or drink at least 2 hours prior to bed, limit caffeine, alcohol, as well as spicy foods Meds to limit or avoid if possible: NSAIDS Elevate HOB if possible Currently taking PPI, was switched to esopmeprazole Is scheduled to have EGD/Colonoscopy Rheumatoid arthritis, unspecified (HCC) Is having a lot of pain Has fu appt with Rheum in 01/2025 Obesity with body mass index (BMI) of [...] counseled on the importance of smoking cessation. Relevant Orders CT lung screening low dose Hematemesis - Primary No episodes since the one she describes Avoid ETOH, advised quit smoking Is going to have EGD/Colonscopy * Minda Yeboah NP - 01/13/2025 6:56 AM EDTAssociated Problem(s): Cigarette nicotine dependence without [...] counseled on the importance of smoking cessation. * Minda Yeboah NP - 01/13/2025 6:55 AM EDTAssociated Problem(s): Obesity with body mass index (BMI) of 30.0 to 39.9 Discussed with patient their BMI (actual, verses recommended). We have also discussed lifestyle modifications: attempts to perform physical activity as chronic conditions allow, also to monitor dietary intake: increasing protein/fruits/veggies and lowering carb intake (unless contraindicated). Limit sodas, juices, and sugary drinks. * Minda Yeboah NP - 01/13/2025 6:55 AM EDTAssociated Problem(s): GERD (gastroesophageal reflux disease) Recommendations: freq small meals, nothing to eat or drink at least 2 hours prior to bed, limit caffeine, alcohol, as well as spicy foods Meds to limit or avoid if possible: NSAIDS Elevate HOB if possible Currently taking PPI, was switched to esopmeprazole Is scheduled to have EGD/Colonoscopy * Minda Yeboah NP - 01/13/2025 6:55 AM EDTAssociated Problem(s): Hematemesis No episodes since the one she describes Avoid ETOH, advised quit smoking Is going to have EGD/Colonscopy documented in this [facility]06-16-2025 Instructions* Patient Instructions* Minda Yeboah NP - 01/13/2025 1:00 PM EDT Check labs, no fasting We will fax order to [facility] for low dose CT scan, they should call you If they do not, call them in 10 days: [phone] ext [phone] documented in this [facility]05-20-2025 History of Present illness Narrative* Minda Yeboah NP - 12/17/2024 4:44 PM [...] 4:00 PM EDT Pt went up to [place] on Monday (pt states she has been [...] on file. HPI: Pt went [place] to [place] on Monday (pt states she has been [...] Age-related osteoporosis without current pathological fracture ([facility] [facility]) 07/25/2023 Anemia Anxiety At low risk for fall Chronic pain Constipation COVID-19 virus detected Depression with anxiety 08/14/2023 10/20/22: MARY 7 score=18, PHQ 9 score=18 Elevated serum creatinine 07/27/2023 Elevated serum glucose Environmental and seasonal allergies 08/20/2023 MARY (generalized anxiety disorder) ([facility]) 07/22/2023 GERD (gastroesophageal reflux disease) 08/14/2023 HLD (hyperlipidemia) ([facility]) 08/14/2023 Hypokalemia Hypomagnesemia 08/14/2023 Hypothyroidism (acquired) ([facility]) 07/03/2023 Insomnia 08/14/2023 Lumbar spine pain Major depressive disorder with single episode, in remission (HCC) ([facility]) 07/03/2023 Migraines ([facility]) 08/14/2023 Mild episode of recurrent major depressive disorder (HCC) ([facility]) Obesity with body mass index (BMI) of 30.0 to 39.9 09/11/2023 THOMAS (obstructive sleep apnea) 08/14/2023 sleep study: AHI 7, minimum oxygen saturation is 87% Osteoporosis ([facility]) 08/14/2023 Postmenopause RA (rheumatoid arthritis) ([facility]) 08/14/2023 Seizures ([facility]) 08/14/2023 Spondylosis, lumbosacral 08/14/2023 Thyroid enlargement ([facility]) 09/11/2023 Thyroid nodule ([facility]) 09/11/2023 Tobacco user [...] omeprazole and start pantoprazole documented in this encounterSaint Joseph Health [id number] Instructions* Patient Instructions* Minda Yeboah NP - 12/17/2024 4:00 PM EDT Check labs Also stop omeprazole and start pantoprazole 40mg daily I referred you to dr pulido, he is GI doctor affiliated with [facility], they should be calling for an appointment Recommend no caffeine, and quitting smoking, if another episode of vomiting blood happens, go to ER documented in this encounterSaint Joseph Health [id number] History of Present illness Narrative* Cristian Szymanski MD - 10/17/2024 12:30 PM EDT Images from the original note were not included. [address] [facility] [address] [facility] [id number] Date of Service: 10/17/2024 Chief Complaint: Joint [...] dry eye/mouth, no recurrent oral/nasal ulcer, she hasRaynaud's, no DVT/PE, she had miscarriage and normal in the past, no pleurisy. Her energyis low, denies patchy hair loss. Previously used rheumatologic medications include NSAIDS - Problems: none. Limitation on activitiesinclude: difficulty with walking and difficulty with ADLs. 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 Cristian Szymanski M.D. [address] [place] [address] Office: [phone] 10/17/2024 documented in this encounterAs[facility]02[facility] Telephone encounter Note* Telephone Encounter - Candelaria Marlow - 09/16/2024 3:31 PM EST Patient called and asked for a refill on all her medications. an [facility] [id number] Miscellaneous Notes* Telephone Encounter - Candelaria Marlow - 09/16/2024 3:31 PM EST Patient called and asked for a refill on all her medications. an documented in this encounterSaint Joseph Health [id number] History of Present illness Narrative* Cristian Szymanski MD - 08/19/2024 2:00 PM EST Images from the original note were not included. [address] [id number] Date of Service: 08/19/2024 Chief Complaint: Joint [...] dry eye/mouth, no recurrent oral/nasal ulcer, she hasRaynaud's, no DVT/PE, she had miscarriage and normal in the past, no pleurisy. Her energyis low, denies patchy hair loss. Previously used rheumatologic medications include NSAIDS - Problems: none. Limitation on activitiesinclude: difficulty with walking and difficulty with ADLs. 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 Cristian Szymanski M.D. [address] [place] [address] [address] [place] [address] Office: [phone] 08/19/2024 documented in this encounterAs[facility]12-05-2024 History of Present illness Narrative* Minda Yeboah, ISA - 07/04/2024 2:00 PM EST Images from the original note were not [...] year ago. The problem occurs occasionally. The problemhas been unchanged. The symptoms are aggravated by [...] Age-related osteoporosis without current pathological fracture ([facility]) 07/25/2023 Anemia Anxiety At low risk for fall Chronic pain Constipation COVID-19 virus detected Depression with anxiety 08/14/2023 10/20/22: MARY 7 score=18, PHQ 9 score=18 Elevated serum creatinine 07/27/2023 Elevated serum glucose Environmental and seasonal allergies 08/20/2023 MARY (generalized anxiety disorder) ([facility]) 07/22/2023 GERD (gastroesophageal reflux disease) 08/14/2023 HLD (hyperlipidemia) ([facility]) 08/14/2023 Hypokalemia Hypomagnesemia 08/14/2023 Hypothyroidism (acquired) ([facility]) 07/03/2023 Insomnia 08/14/2023 Lumbar spine pain Major depressive disorder with single episode, in remission (HCC) ([facility]) 07/03/2023 Migraines ([facility]) 08/14/2023 Mild episode of recurrent major depressive disorder (HCC) ([facility]) Obesity with body mass index (BMI) of 30.0 to 39.9 09/11/2023 THOMAS (obstructive sleep apnea) 08/14/2023 sleep study: AHI 7, minimum oxygen saturation is 87% Osteoporosis ([facility]) 08/14/2023 Postmenopause RA (rheumatoid arthritis) ([facility]) 08/14/2023 Seizures ([facility]) 08/14/2023 Spondylosis, lumbosacral 08/14/2023 Thyroid enlargement ([facility]) 09/11/2023 Thyroid nodule ([facility]) 09/11/2023 Tobacco user 08/14/2023 Past Surgical History: [...] List Items Addressed This Visit Hypothyroidism (acquired) ([facility]) Continue levothyroxine Labs yearly and prn Relevant Medications levothyroxine (Synthroid) 50 MCG tablet MARY (generalized anxiety disorder) ([facility]) No changes to med MARY=2 Relevant Medications sertraline (Zoloft) 100 MG tablet Mixed hyperlipidemia ([facility]) Continue statin Check labs yearly and prn dose changes Relevant Medications atorvastatin (Lipitor) 40 MG tablet Seizures ([facility]) Will cont topirimate, but monitor Is not [...] omeprazole (PriLOSEC) [address] capsule Osteoporosis ([facility]) Continue w fosamax Last DEXA: 10/20/22 Relevant [...] toprovider when ready to start this process Hypomagnesemia Relevant Medications magnesium oxide (Mag-Ox) 400 (240 Mg) MG tablet Depression with anxiety MARY 7= 2, PHQ 9= 5 Stable on current meds Vitamin D deficiency Continue current supplement Check labs yearly and prn Relevant Medications cetirizine (ZyrTEC) 10 MG tablet cholecalciferol (Vitamin D-3) 50 MCG (1999 UT) capsule Environmental and seasonal allergies Relevant Medications cetirizine (ZyrTEC) 10 MG tablet fluticasone (Flonase) 50 MCG/ACT nasal spray RESOLVED: Chronic bronchitis (CMS/HCC) Relevant Medications Umeclidinium-Vilanterol (Anoro Ellipta) 62.5-25 MCG/ACT [...] calorie diet Chronic obstructive pulmonary disease, unspecified (CMS/HCC) Recommend quit smoking Cont anoro, albuterol prn Other Visit Diagnoses Anxiety and depression (CMS/HCC) - Primary Relevant Medications QUEtiapine (SEROquel) 50 MG tablet Major depressive disorder with single episode, in remission (HCC) (CMS/HCC) Relevant Medications sertraline (Zoloft) 100 MG tablet * Minda Yeboah NP - 07/04/2024 7:35 AM ESTAssociated Problem(s): Depression with anxiety MARY 7= 2, PHQ 9= 5 Stable on current meds * Minda Yeboah NP - 07/04/2024 7:35 AM ESTAssociated Problem(s): MARY (generalized anxiety disorder) ([facility]) No changes to med MARY=2 * Minda Yeboah NP - 07/04/2024 7:34 AM ESTAssociated Problem(s): Mixed hyperlipidemia (CMS/[facility]) Continue statin Check labs yearly and prn dose changes * Minda Yeboah NP - 07/04/2024 7:34 AM ESTAssociated Problem(s): Hypothyroidism (acquired) ([facility]) Continue levothyroxine Labs yearly and prn * Minda Yeboah NP - 07/04/2024 7:34 AM ESTAssociated Problem(s): Vitamin D deficiency Continue current supplement Check labs yearly and prn * Minad Yeboah NP - 07/04/2024 7:32 AM ESTAssociated Problem(s): Osteoporosis ([facility]) Continue w fosamax Last DEXA: 10/20/22 * Minda Yeboah NP - 07/04/2024 7:32 AM ESTAssociated Problem(s): GERD (gastroesophageal reflux disease) Recommendations: freq small meals, nothing to eat or drink at least 2 hours prior to bed, limit caffeine, alcohol, as well as spicy foods Meds to limit or avoid if possible: NSAIDS Elevate HOB if possible Currently taking PPI * Minda Yeboah NP - 07/04/2024 7:32 AM ESTAssociated Problem(s): Chronic obstructive pulmonary disease, unspecified ([facility]) Recommend quit smoking Cont anoro, albuterol prn * Minda Yeboah NP - 07/04/2024 7:31 AM ESTAssociated Problem(s): Seizures (CMS/HCC) Will cont topirimate, but monitor Is not compliant with neurology fu * Minda Yeboah NP - 07/04/2024 7:28 AM ESTAssociated Problem(s): Abnormal weight gain Has completed # 6 months of adipex Total loss: Discussed with patient their BMI (actual, verses recommended). We have also discussed lifestyle modifications: attempts to perform physical activity as chronic conditions allow, also to monitor dietary intake: increasing protein/fruits/veggies and lowering carb intake (unless contraindicated). Limit sodas, juices, and sugary drinks. Maintain 1600 calorie diet * Minda Yeboah NP - 07/04/2024 7:27 AM ESTAssociated Problem(s): Tobacco user The patient has been [...] toprovider when ready to start this process documented in this encounterSaint Joseph Health [id number] Instructions* Patient Instructions* Minda Yeboah NP - 07/04/2024 2:00 PM EST Follow up appt in 3 months Mammogram: due in July 2024, we will [facility]-they should call you Thyroid labs: due now documented in this encounterSaint Joseph Health [id number] History of Present illness Narrative* Minda Yeboah NP - 06/05/2024 2:36 PM ESTAssociated Problem(s): Constipation Pre existing, does take miralax And adipex is likely worsening this Would recommend fiber tablets daily 2 pills Add apple juice /prune juice mix 1/2 cup nightly as well * Minda Yeboah NP - 06/05/2024 2:31 PM ESTAssociated Problem(s): Abnormal weight gain Has completed # 5 months of adipex OARRS reviewed Order month #6 Stick with 1600 calories daily Water intake, and exercise as chronic conditions allow * Minda Yeboah NP - 06/05/2024 2:28 PM ESTAssociated Problem(s): MARY (generalized anxiety disorder) ([facility]) No changes to med dose * SHARON QUIGLEY - 06/05/2024 2:00 PM EST Pt is stress eating, sweats and candy Pt is struggling with medication time frame * Minda Yeboah NP - 06/05/2024 2:00 PM EST Images from the original note were not [...] Negative for abdominal pain, blood in stool, diarrhea,nausea and vomiting. Genitourinary: Negative for difficulty urinating, [...] CT Age-related osteoporosis without current pathological fracture ([facility]) 07/25/2023 Anemia Anxiety At low risk for fall Chronic pain Constipation COVID-19 virus detected Depression with anxiety 08/14/2023 10/20/22: MARY 7 score=18, PHQ 9 score=18 Elevated serum creatinine 07/27/2023 Elevated serum glucose Environmental and seasonal allergies 08/20/2023 MARY (generalized anxiety disorder) ([facility]) 07/22/2023 GERD (gastroesophageal reflux disease) 08/14/2023 HLD (hyperlipidemia) ([facility]) 08/14/2023 Hypokalemia Hypomagnesemia 08/14/2023 Hypothyroidism (acquired) ([facility]) 07/03/2023 Insomnia 08/14/2023 Lumbar spine pain Major depressive disorder with single episode, in remission (HCC) ([facility]) 07/03/2023 Migraines ([facility]) 08/14/2023 Mild episode of recurrent major depressive disorder (HCC) ([facility]) Obesity with body mass index (BMI) of 30.0 to 39.9 09/11/2023 THOMAS (obstructive sleep apnea) 08/14/2023 sleep study: AHI 7, minimum oxygen saturation is 87% Osteoporosis ([facility]) 08/14/2023 Postmenopause RA (rheumatoid arthritis) ([facility]) 08/14/2023 Seizures ([facility]) 08/14/2023 Spondylosis, lumbosacral [...] Addressed This Visit MARY (generalized anxiety disorder) (CMS/HCC) No changes to med dose Tobacco user [...] toprovider when ready to start this process Constipation [...] Relevant Medications phentermine (Adipex-P) 37.5 MG tablet * Minda Yeboah NP - 06/05/2024 7:11 AM ESTAssociated Problem(s): Tobacco user The patient has been [...] toprovider when ready to start this process documented in this encounterSaint Joseph Health [id number] Instructions* Patient Instructions* Minda Yeboah NP - 06/05/2024 2:00 PM EST For constipation: continue miralax daily, also add metamucil fiber tablets 2 pills daily Also add 1/2 cup of mixture of apple juice and prune juice warmed up slightly, take at bedtime And if after doing this for 10 days does not help, consider adding milk of magnesia at bedtime documented in this encounterSaint Joseph Health [id number] History of Present illness Narrative* Minda Yeboah NP - 04/29/2024 6:08 PM EDTAssociated Problem(s): Abnormal weight gain Has completed # 3 months of adipex Total weight loss: 14 pounds OARRS reviewed * Minda Yeboah NP - 04/29/2024 6:08 PM EDTAssociated Problem(s): RA (rheumatoid arthritis) (CMS/HCC) Continue with rheumatolgist * Minda Yeboah NP - 04/29/2024 6:07 PM EDTAssociated Problem(s): MARY (generalized anxiety disorder) (CMS/[facility]) Feels meds are working great * Minda Yeboah NP - 04/29/2024 6:07 PM EDTAssociated Problem(s): Depression with anxiety Stable on current meds * Minda Yeboah NP - 04/29/2024 6:07 PM EDTAssociated Problem(s): Hypothyroidism (acquired) (CMS/HCC) Will recheck in next few weeks to see if needs dose change * Minda Yeboah NP - 04/29/2024 6:06 PM EDTAssociated Problem(s): Osteoporosis (CMS/HCC) Will start fosamax, when ok from dental provider * Minda Yeboah NP - 04/29/2024 6:06 PM EDTAssociated Problem(s): Seizures (CMS/HCC) Will cont topirimate, but monitor * Minda Yeboah NP - 04/29/2024 6:06 PM EDTAssociated Problem(s): Epilepsy (CMS/HCC) (Resolved 04/29/2024) Continue topirimate Will monitor * Minda Yeboah NP - 04/29/2024 5:30 PM EDT Images from the original note [...] Age-related osteoporosis without current pathological fracture ([facility]) 07/25/2023 Anemia Anxiety At low risk for fall Chronic pain Constipation COVID-19 virus detected Depression with anxiety 08/14/2023 10/20/22: MARY 7 score=18, PHQ 9 score=18 Elevated serum creatinine 07/27/2023 Elevated serum glucose Environmental and seasonal allergies 08/20/2023 MARY (generalized anxiety disorder) ([facility]) 07/22/2023 GERD (gastroesophageal reflux disease) 08/14/2023 HLD (hyperlipidemia) ([facility]) 08/14/2023 Hypokalemia Hypomagnesemia 08/14/2023 Hypothyroidism (acquired) ([facility]) 07/03/2023 Insomnia 08/14/2023 Lumbar spine pain Major depressive disorder with single episode, in remission (HCC) ([facility]) 07/03/2023 Migraines ([facility]) 08/14/2023 Mild episode of recurrent major depressive disorder (HCC) ([facility]) Obesity with body mass index (BMI) of 30.0 to 39.9 09/11/2023 THOMAS (obstructive sleep apnea) 08/14/2023 sleep study: AHI 7, minimum oxygen saturation is 87% Osteoporosis ([facility]) 08/14/2023 Postmenopause RA (rheumatoid arthritis) ([facility]) 08/14/2023 Seizures ([facility]) 08/14/2023 Spondylosis, lumbosacral 08/14/2023 Thyroid enlargement ([facility]) 09/11/2023 Thyroid nodule ([facility]) 09/11/2023 Tobacco user [...] Items Addressed This Visit Hypothyroidism (acquired) (CMS/HCC) Will recheck in next few weeks to see if needs dose change MARY (generalized anxiety disorder) (CMS/HCC) Feels meds are working great Seizures (CMS/HCC) Will cont topirimate, but monitor Osteoporosis (CMS/HCC) Will start fosamax, when ok from dental provider Tobacco user RA (rheumatoid arthritis) (CMS/HCC) Continue with rheumatolgist Depression with anxiety Stable on current meds Obesity with body mass index (BMI) of 30.0 to 39.9 RESOLVED: Epilepsy (CMS/HCC) - Primary Continue topirimate Will monitor Abnormal weight gain Has completed # 3 months of adipex Total weight loss: 14 pounds OARRS reviewed Relevant Medications phentermine (Adipex-P) 37.5 MG tablet documented in this encounterSaint Joseph Health [id number] History of Present illness Narrative* Minda Yeboah NP - 04/02/2024 1:45 PM EDTAssociated Problem(s): Tobacco user The patient has been [...] for 40 years Start with 21mg patch * Minda Yeboah NP - 04/02/2024 1:43 PM EDTAssociated Problem(s): Chronic bronchitis (CMS/HCC) Continue the use of anoro and albuterol * Minda Yeboah NP - 04/02/2024 1:43 PM EDTAssociated Problem(s): Seizures (CMS/HCC) No recent seizures Continue current meds * SHARON QUIGLEY - 04/02/2024 1:20 PM EDT 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 Pt need a refill on all her meds. * Minda Yeboah NP - 04/02/2024 1:20 PM EDT Images from the original note [...] while Thyroid: good Smoking: wants patches, smokes [id number] years SUBJECTIVE: MEDICATIONS: Current Outpatient Medications Medication [...] Age-related osteoporosis without current pathological fracture ([facility]) 07/25/2023 Anemia Anxiety At low risk for fall Chronic pain Constipation COVID-19 virus detected Depression with anxiety 08/14/2023 10/20/22: MARY 7 score=18, PHQ 9 score=18 Elevated serum creatinine 07/27/2023 Elevated serum glucose Environmental and seasonal allergies 08/20/2023 MARY (generalized anxiety disorder) ([facility]) 07/22/2023 GERD (gastroesophageal reflux disease) 08/14/2023 HLD (hyperlipidemia) ([facility]) 08/14/2023 Hypokalemia Hypomagnesemia 08/14/2023 Hypothyroidism (acquired) ([facility]) 07/03/2023 Insomnia 08/14/2023 Lumbar spine pain Major depressive disorder with single episode, in remission (HCC) ([facility]) 07/03/2023 Migraines ([facility]) 08/14/2023 Mild episode of recurrent major depressive disorder (HCC) ([facility]) Obesity with body mass index (BMI) of 30.0 to 39.9 09/11/2023 THOMAS (obstructive sleep apnea) 08/14/2023 sleep study: AHI 7, minimum oxygen saturation is 87% Osteoporosis ([facility]) 08/14/2023 Postmenopause RA (rheumatoid arthritis) ([facility]) 08/14/2023 Seizures ([facility]) 08/14/2023 Spondylosis, lumbosacral 08/14/2023 Thyroid enlargement ([facility]) 09/11/2023 Thyroid nodule ([facility]) 09/11/2023 Tobacco user 08/14/2023 Past Surgical History: [...] List Items Addressed This Visit Hypothyroidism (acquired) ([facility]) Relevant Medications levothyroxine (Synthroid) 50 MCG tablet MARY (generalized anxiety disorder) ([facility]) Relevant Medications sertraline (Zoloft) 100 MG tablet Mixed hyperlipidemia ([facility]/H[facility]) Relevant Medications atorvastatin (Lipitor) 40 MG tablet RESOLVED: Anxiety and depression ([facility]) Relevant Medications QUEtiapine (SEROquel) 50 MG tablet Seizures ([facility]) - Primary No recent seizures Continue current meds Relevant Medications topiramate (Topamax) 100 MG tablet topiramate (Topamax) 25 MG tablet GERD (gastroesophageal reflux disease) Relevant Medications omeprazole (PriLOSEC) [address] capsule Spondylosis, lumbosacral Relevant Medications cyclobenzaprine (Flexeril) 5 MG tablet Osteoporosis ([facility]) Tobacco user The patient has been advised of the risks of continued smoking: stroke, [place], all forms of cancer, lung disease, and . Options for quitting smoking include: cold turkey, hypnosis, acupuncture, nicotine replacement meds(gum, lozenges, and patches), Buproprion, and Varenicline. At this time pt is encouraged to evaluate their goals for wanting to quit smoking, and [facility] when ready to start this process Patches, smokes 1ppd, for 40 years Start with 21mg patch Relevant Medications nicotine (Nicoderm, Step 1) 21 MG/24HR patch RA (rheumatoid arthritis) ([facility]) Migraines ([facility]) Hypomagnesemia Relevant Medications magnesium oxide (Mag-Ox) 400 (240 Mg) MG tablet Vitamin D deficiency Relevant Medications cetirizine (ZyrTEC) 10 MG tablet cholecalciferol (Vitamin D-3) 50 MCG (1999 UT) capsule Environmental and seasonal allergies Relevant Medications cetirizine (ZyrTEC) 10 MG tablet fluticasone (Flonase) 50 MCG/ACT nasal spray Chronic bronchitis ([facility]) Continue the use of anoro and albuterol Relevant Medications albuterol HFA 90 mcg/act inhaler Umeclidinium-Vilanterol (Anoro Ellipta) 62.5-25 MCG/ACT aerosol powder Other Visit Diagnoses Major depressive disorder with single episode, in remission (HCC) (CMS/[facility]) Relevant Medications ARIPiprazole (Abilify) 5 MG tablet sertraline (Zoloft) 100 MG tablet documented in this encounterSaint Joseph Health [id number] Miscellaneous Notes* Telephone Encounter - Yasmin Patel CNA - 03/19/2024 10:09 AM EDT Patient called in stating hydroxychloroquine was making her shake & feel dizzy/lightheaded whenstanding/ Patient states she stopped taking the medication 4 days ago & no longer feels the shaking/ dizziness.Patient states she does think her RA symptoms are kicking in. Patient asked what else could she take now? * Telephone Encounter - Yasmin Patel CNA - 03/19/2024 10:09 AM EDT Patient called in stating she also needs a refill of flexeril. documented in this encounter[facility] Telephone encounter Note* Telephone Encounter - Yasmin Patel CNA - 03/19/2024 10:09 AM EDT Patient called in stating hydroxychloroquine was making her shake & feel dizzy/lightheaded whenstanding/ Patient states she stopped taking the medication 4 days ago & no longer feels the shaking/ dizziness.Patient states she does think her RA symptoms are kicking in. Patient asked what else could she take now? [facility]08-[facility] Telephone encounter Note* Telephone Encounter - Yasmin Patel CNA - 03/19/2024 10:09 AM EDT Patient called in stating she also needs a refill of flexeril. [facility]05-29-[facility]24 History of Present illness Narrative* Cristian Szymanski MD - 12/27/2023 12:00 PM EDT Images from the original note were not included. [address] [id number] Date of Service: 12/27/2023 Chief Complaint: Joint [...] dry eye/mouth, no recurrent oral/nasal ulcer, she hasRaynaud's, no DVT/PE, she had miscarriage and normal in the past, no pleurisy. Her energyis low, denies patchy hair loss. Previously used rheumatologic medications include NSAIDS - Problems: none. Limitation on activitiesinclude: difficulty with walking and difficulty with ADLs. [...] changes, nausea, vomiting, weight loss, skin discoloration, usp risk of retinal toxicity and need for [...] and is pertinent to the current visit [facility] Dr. Cristian Szymanski M.D. [address] [facility] [address] [place] [address] Office: [phone] 12/27/2023 documented in this encounterMercy HealthJiangsu Shunda [employer] [facility] [id number] History of Present illness Narrative* Cristian Szymanski MD - 08/29/2023 12:30 PM EST Images from the original note were not included. [address] [facility] [address] [facility] [id number] Date of Service: 08/29/2023 Chief Complaint: Joint [...] dry eye/mouth, no recurrent oral/nasal ulcer, she hasRaynaud's, no DVT/PE, she had miscarriage and normal in the past, no pleurisy. Her energyis low, denies patchy hair loss. Previously used rheumatologic medications include NSAIDS - Problems: none. Limitation on activitiesinclude: difficulty with walking and difficulty with ADLs. 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 Cristian Szymanski M.D. [address] [place] [address], [address] [place] [address] Office: [phone] 08/29/2023 documented in this encounterAshtabula [facility] Center05-16-2023 NotePROCEDURE: XR ANKLE LT MIN 3 V, XR [...] Stable healing fractures Electronically authenticated by: NATACHA BLAKELY Date: 2022-12-13 17:20[facility] [id number] NotePROCEDURE: XR ANKLE LT MIN 3 V, XR [...] Stable healing fractures Electronically authenticated by: NATACHA BLAKELY Date: 2022-12-13 17:20[facility] NotePROCEDURE: XR FOOT LT MIN 3 VIEWS, XR ANKLE LT MIN [...] and second metatarsals Electronically authenticated by: NATACHA BLAKELY Date: 2022-11-24 07:36[facility]04-27-2023 NotePROCEDURE: XR FOOT LT MIN 3 VIEWS, XR ANKLE LT MIN [...] and second metatarsals Electronically authenticated by: NATACHA BLAKELY Date: 2022-11-24 07:36[facility]04-18-2023 NoteORAL SURGERY PROCEDURE ROOM NOTE [facility] Surgical Product(s): Routine extraction teeth #'s 17, [...] that are less common. Pre-op Diagnosis: Caries [[id number]] PROCEDURE TIME OUT CHECK LIST 1. Radiograph is correctly matched to the patient,diagnostic quality, correctly oriented for laterality: Yes 2. Time out performed confirming correct surgical site and/or involved teeth verified by the patient and the surgeon: Yes Anesthesia: 2% Xylocaine with 1/100,000 epinephrine: 2 carpules and 0.5% Bupivicaine: 2 carpules Attending: Krystian Munoz DMD, MD Resident: N/A Circulating Nurse: None Assistants: Naeem, software security consultant in Detail: Simple extraction tooth # 17 and 32 ; reflected mucoperiosteal cuff around tooth #17 and 32, atraumatic delivery with elevator and forcep. Inspected socket, followed by curettage, saline irrigation. Single simple interrupted suture placed at sites #17, 32. Pressure gauze for hemostasis. Patient tolerated procedure well. Complications: none Specimens: None Estimated blood loss: Minimal (<5 ml) Disposition: Home Krystian Munoz DMD, [facility]01-12-2023 NotePROCEDURE: XR FOOT LT MIN 3 VIEWS, XR ANKLE LT MIN [...] Electronically authenticated by: CHARLES URRUTIA Date: 2022-08-11 10:18[facility]01-12-2023 NotePROCEDURE: XR FOOT LT MIN 3 VIEWS, XR ANKLE LT MIN [...] Electronically authenticated by: CHARLES URRUTIA Date: 2022-08-11 10:18[facility]12-19-2022 History of Present illness Narrative* Cristobal Hargrove, DMD - 07/18/2022 2:27 PM EST [facility] PATIENT VISIT CHIEF COMPLAINT: Pain and [place] Te[place] HISTORY OF PRESENT ILLNESS: 56 year old female with PMH significant for H/O seizures (~once a year;most recent was 06/21), hypothyroidism, and tobacco use presents to [facility] clinic as a referral from an outside provider for the evaluation and extraction of wisdom teeth #17, 32. Pt states that her lower wisdom teeth have cracked and been giving a lot of pain and that she can't eat or even brush herteeth. Pt endorses waxing and waning pain originating from the teeth listed on the referral that limits her ability to chew, function normally, and perform oral hygiene. PAST MEDICAL HISTORY: 56 yrs old White female No past medical history on file. Patient Active Problem List: Ankle fracture, bimalleolar, closed, left, initial encounter [S82.842A] COVID-19 virus infection [U07.1] Disorientation [R41.0] Disturbance [...] mouth as directed, start with 1 at bedtimefor... (REFER TO PRESCRIPTION NOTES). topiramate (TOPAMAX) 25 [...] puff by mouth and INTO THE LUNGS oncedaily fluticasone (FLONASE) 50 mcg/act nasal inhaler No [...] and with local anesthesia Cristobal Hargrove DMD * Nate Douglas - 07/18/2022 2:18 PM EST Images from the original note were not included. * Elaina Talamantes RN - 07/18/2022 1:57 PM EST Patient was identified by name and date of . ELAINA TALAMANTES, RN documented in this [id number] NotePROCEDURE: XR ANKLE LT MIN 3 V, XR [...] Electronically authenticated by: CHARLES URRUTIA Date: 2022-07-05 15:06[facility]12-06-2022 NotePROCEDURE: XR ANKLE LT MIN 3 V, XR [...] Electronically authenticated by: CHARLES URRUTIA Date: 2022-07-05 15:06[facility]11-23-2022 NotePROCEDURE: XR ANKLE LT MIN 3 V, XR [...] Electronically authenticated by: CHARLES URRUTIA Date: 2022-06-22 07:06[facility]11-23-2022 NotePROCEDURE: XR ANKLE LT MIN 3 V, XR [...] Electronically authenticated by: CHARLES URRUTIA Date: 2022-06-22 07:06[facility]11-03-2022 NotePROCEDURE: XR ANKLE LT MIN 3 V, XR [...] and second metatarsals Electronically authenticated by: NATACHA BLAKELY Date: 2022-06-02 18:33[facility]11-03-2022 NotePROCEDURE: XR ANKLE LT MIN 3 V, XR [...] and second metatarsals Electronically authenticated by: NATACHA BLAKELY Date: 2022-06-02 18:33[facility]10-27-2022 History of Present illness Narrative* Janet South RN - 05/26/2022 1:48 PM EDT Discharge instructions given to patient and spouse. Verbalized understanding. Discharged to home. * Evelio Dennis MD - 05/25/2022 6:33 PM EDT Images from the original note were not included. Internal Medicine Resident Progress Note Patient: Tanja Carrero Date of : 1965 Unit/Bed:7K-01/001-A Acct: [id number] PCP: MINDA YEBOAH Date of Admission: 05/24/2022 Assessment/Plan: #Multiple fractures of the left foot and ankle: Patient was cooking dinner and fell down and had possible psychogenic nonepileptic seizure. Unsure whether patient hit head or had a fall. Woke up withexcruciating pain in left leg. Taken to ED. [...] foot patient was recommended to transfer to [facility]. Orthopedic surgery was consulted: Patient [...] has been having burning sensation over the lastweek on her lower back. At the time thought she was having UTI symptoms. Burning pain sensation hasnow decreased and for the last couple of days has been changed to itching. After examining rash, itdoes not cross midline. Could be shingles. - Start patient on Acyclovir 800 mg 5 times daily for 7 days #Psychogenic nonepileptic seizures: Patient states she was diagnosed 5 years ago. She was worked upand had EEG monitoring done. Found to have [...] was given potassium tablets. On admission at [facility] K+ 5.3 and EKG NSR as well. Unconcerned we will continue monitoring. - Daily monitoring of BMP #Normocytic anemia: On admission at OSH H&H 10.7/31.6 likely secondary to inflammation. None - Daily monitoring of CBC #Major depressive disorder: Home medication of BuSpar 5 mg bid, Zoloft 100 mg and topiramate 125 mgbid. #HLD: Unsure of previous lipid panel. - [...] [] Rehab [] Psych [] SNF [] [facility] [] Other- Chief Complaint: Transfer from [facility] Hospital Course: Tanja Carrero is a 56 y.o. female with PMHx of MDD, migraines, encephalopathy 2/2 COVID-19 and seizure Hx on Topamax who presents to [facility] after being transferred from [facility]. Information gathered from chart review and patient. Patient presented to [facility] after having a possible small seizure at home. She was cooking food andwhen SO left room she she had an episode. As SO stated at OSH that th he did not see any tonic or jerking behavior. No tongue bite, loss of bladder or bowel. SO woke up patient after finding her downand she was confused. Diagnosed approximately 5 years [...] are resolved with Topamax. Does admit to drinkingprior to seizure episode. Has no recollection of [...] family that she should be transferred to [facility]. At [facility] neurology and orthopedic surgery was [...] routine 20-minute EEG: Abnormal awake EEG suggests mild- moderate nonspecific encephalopathy. No epileptiform discharges were identified. [...] morphine OR morphine, HYDROcodone 5 mg - joel taminophen OR HYDROcodone 5 mg - acetaminophen, LORazepam Intake/Output Summary (Last 24 hours) at 05/25/2022 1833 Last data filed at 05/25/2022 1356 Gross per 24 hour Intake 440 ml Output 600 ml Net -160 ml Exam: BP 112/76 Pulse 98 Temp 98.1 F (36.7 C) (Oral) Resp 18 Ht 5' 7 (1.702 m) Wt 165 lb (74.8kg) LMP 08/01/2012 SpO2 97% BMI 25.84 kg/m [...] +2 palpable, equal bilaterally. Labs: Recent Labs 05/23/22 2245 05/24/22 1248 05/25/22 0416 WBC 7.3 7.8 6.6 HGB 10.7* 11.3* 10.7* HCT 31.6* 34.4* 32.6* PLT See Reflexed IPF Result 311 278 Recent Labs 05/23/22224405/24/22 1248 05/24/222231 NA 136 136 134* K 3.5* 5.3* 3.9 CL 102 100 98 CO2 19* 24 20* BUN 12 13 15 CREATININE 0.99* 1.0 1.0 CALCIUM 10.1 10.1 9.4 Recent Labs 05/23/22224405/24/228 AST 21 20 ALT 13 12 BILITOT [...] involving the base of the 1st, 2nd, 3rd,and 4th metatarsals. 3. Not significantly displaced fracture [...] note. I agree with the physical exam, assessmentand plan for treatment, with any exceptions listed below. EXCEPTIONS/ADDITIONAL COMMENTS: None; agree with details of exam and plan. May be able to go home soon. Signed By: Dhruv Carrillo M.D. ATTESTATION * Aisha Phillips, OT - 05/25/2022 12:19 PM EDT [facility] IN[facility] EVALUATION Time: Time In: 915 [...] seizure Hx on Topamax who presents to [facility] after being transferred from [facility].Patient presented to [facility] after having a possible small seizure at h ome. She was cooking food and when SO left room she she had an episode. As SO stated at OSH that thhe did not see any tonic or jerking behavior.SO woke up patient after finding her down and she was confused. Diagnosed approximately 5 years ago and seizures were well controlled on Topamax. Currently has not had any seizure episodes for at least a year. A year ago patient had staring spells but noother episodes since. Patient states in the past when seizures are about to start she has some neckand back of head pain that precipitates just [...] bases of metatarsals 1 through 4. With significantpain in her left lower extremity. It was discussed with orthopedist Dr. Alvarado and patient and family that she should be transferred to [facility]. Orthopedic surgery saw patient:Plan is [...] Ambulation Assistance: Independent Transfer Assistance: Independent Active Quality Control: Yes Mode of Transportation: Car Occupation: Unemployed VISION:WFL HEARING: WFL COGNITION: Decreased Safety Awareness RANGE OF MOTION: Bilateral Upper Extremity: WNL STRENGTH: Bilateral Upper Extremity: WNL SENSATION: WFL ADL: Bathing: Stand By Assistance and with increased time for completion. Seated on chair by sink. Upper Extremity Dressing: Stand By Assistance. To [facility]. Lower Extremity Dressing: Stand By Assistance. Toileting: [...] transfers, mobility, and IADLs to return to OF. Without skilled OT intervention patient is at increased risk for falls, caregiverburden, and hospital readmission after discharge. Performance deficits [...] care. If no long-term goals established, a shor t length of stay is anticipated. Goals: Patient [...] to/from BR with S while maintaining LLE NWBto increase indep and endurance with toileting. Short Term Goal 4: Pt will complete LB dressing with S and min vcs for safety to increase indep andendurance within home environment. Additional Goals?: No Following session, patient left in safe position with all fall risk precautions in place. * Dom Cardoso, PT - 05/25/2022 10:55 AM EDT [facility] INPATIENT PHYSICAL THERAPY EVALUATION [facility] ORTHOPEDICS 7K - [id number]-[id number]-A Time In: [...] seizure Hx on Topamax who presents to [facility] after being transferred from [facility].Patient presented to [facility] after having a possible small seizure at [facility]. She was cooking food and when SO left room she she had an episode. As SO stated at OSH that thhe did not see any tonic or jerking behavior.SO woke up patient after finding her down and she was confused. Diagnosed approximately 5 years ago and seizures were well controlled on Topamax. Currently has not had any seizure episodes for at least a year. A year ago patient had staring spells but noother episodes since. Patient states in the past when seizures are about to start she has some neckand back of head pain that precipitates just [...] bases of metatarsals 1 through 4. With significantpain in her left lower extremity. It was discussed with orthopedist Dr. Alvarado and patient and family that she should be transferred to [facility]. Orthopedic surgery saw patient:Plan is [...] Ambulation Assistance: Independent Transfer Assistance: Independent Active Quality Control: Yes OBJECTIVE: Range of Motion: Bilateral Lower [...] RLE up/down steps Functional Outcome Measures: Completed AM-PAC Inpatient Mobility Raw Score : 18 [facility] Inpatient T-Scale Score : 43.63 ASSESSMENT: Activity [...] increase safety and independence with functional mobility forimproved independence and quality of life. Assessment: Body [...] to decreased activity tolerance, strength, fatigue, and balancedeficits. Pt will benefit from skilled PT services throughout admission and beyond hospital discharge for improvements in functional mobility and in order to decrease fall risk and return pt to [facility]. Therapy Prognosis: Good Requires PT Follow-Up: Yes [...] mod I for safe enter/exit of home Elevator Repairer Apprentice Goals Time Frame for Snf Goals : NA d/t short ELOS Following session, patient left in safe position with all fall risk precautions in place. Dom Cardoso (Truex) PT, DPT * Tiffany Albrecht RN - 05/25/2022 2:08 AM EDT Patient decided wanted boot back on. Denies any further requests at this time. * Tiffany Albrecht RN - 05/24/2022 9:50 PM EDT Patient demanded boot off for the night. Does not tolerate it. * Dewayne Prabhakar - 05/24/2022 5:20 PM EDT [facility] Neurodiagnostic Agricultural Research Director Worksheet EEG Date: 05/24/2022 Name: Tanja Carrero : 1965 Age: 56 y.o. SEX: female ROOM: [facility] CSN: [id number] Ordering Provider: Gerardo ROMERO Number: [id number] Time of Test: 1414 Hand: Right Sedation: no H.V. Done: Yes with fair effort Photic: Yes Sleep: Yes Drowsy: Yes Sleep Deprived: No Seizures observed: no Mentality: alert Clinical History:patient has history of migraines and seizures, last one a year ago. Taking [id number] Patient here after being found on ground [...] potassium chloride, magnesium sulfate, morphine OR morphine, H YDROcodone 5 mg - acetaminophen OR HYDROcodone 5 mg - acetaminophen, LORazepam Welding Foreman: Dewayne Prabhakar 05/24/2022 * Patria Fuentes RN - 05/24/2022 11:15 AM EDT A 56 year old admitted to [address] [place] [address] from [facility]. Patient oriented to room, unitand plan of care. * Thelma Duncan RN - 05/24/2022 4:12 AM EDT [facility], Dr Valles. 56 yo with 5yr hx of seizure on topamax, had a seizure tonight and fell in her kitchen, multiple fractures of her left foot. 1st seizure in over a year. Labs unremarkable, ETOH0.013 had a couple glasses of wine. Head CT wnl, EKG wnl. Ortho agreed to consult , requested hospitalist admit due to seizure.Vitals 125/82, 82,18, 96% on room air. documented in this encounterB[facility] Work Phone: [phone] 485-842011-19-2021 History of Present illness Narrative* Elba Roe RN - 06/18/2021 2:13 PM EST Patient off the floor at this time. Wheeled down to front entrance via wheelchair and left in private auto. * Elba Roe RN - 06/18/2021 1:34 PM EST Spoke with at this time to update on discharge plans. Reviewed discharge paperwork with himdue to patients slight confusion still. Will send paperwork with patient on discharge. * Ana Navarro OT - 06/18/2021 11:57 AM EST Occupational Therapy Facility/Department: [facility] Daily Treatment Note NAME: Tanja Carrero : 1965 Date of Service: 06/18/2021 Discharge Recommendations: Continue to assess pending progress, IP Rehab, Subacute/Nursing Home Facility Assessment OT Education: ADL Adaptive Strategies; [...] and dressing with some increased cues and timeto complete. Significant improvement noted compared to a [...] Safety Education & Training, Patient/Caregiver Education & Training,Equipment Evaluation, Education, & procurement, Self-Care / ADL, Cognitive/Perceptual Training Goals Short term goals Short term goal 1: Patient to engage in self feeding c min A c <50% VC for initiation of task. Short term goal 2: Patient to engage in simple UB self care (grooming, dressing, bathing) c min A c<50% VC for initiated and engagement in self care. Short term goal 3: Patient to engage daily in BUE A/AA/PROM to maintian ROM throughout hospital stay. Short term goal 4: Patient to complete ADL transfers c Min A x 1 c improved safety. Therapy Time Individual Concurrent Group Co-treatment Time In 956 Time Out 1020 Minutes 23 Duyen Navarro OTR/L * Emma Song RN - 06/17/2021 6:46 PM EST Fish Hatchery Specialist at bedside for shift assessment. Patient helped off the commode and back into bed respirations are even and unlabored while on room air. Vitals obtained and assessment completed, see flowsheetfor details. pt denies further needs at this time. Call light in reach, will continue to monitor. * Dipika Alvarado RN - 06/17/2021 5:24 PM EST Patient had to be reminded through out [...] called for update and happy that patient issemi able to hold conversation with him. Patient up to bathroom X3 with one assist, slightly unsteady gait noted. * Dali Cook PTA - 06/17/2021 4:20 PM EST Physical Therapy Facility/Department: [facility] Daily Treatment Note NAME: Tanja [...] Out 1612 Minutes 13 Dali Cook PTA * Rene Mccall MD - 06/17/2021 12:23 PM EST Images from the original note were not included. [facility] - Telemedicine Progress Note COVID 19 Patient Today's Date and Time: 06/17/2021, 12:24 PM Impression : COVID 19 Confirmed Infection Covid tests: 06/14/21: Positive Altered mentation Possible left maxillary sinusitis Seizure history on Topamax Has not received the Covid vaccine Patient evaluated by Telemedicine. Requesting Institution: [facility] Provider [facility]: [facility] Intermediary Person at [facility]: Ms Alecia Pretty, PODIATRY DOCTOR- IM Recommendations: Antibiotic treatment: Monitor off antibiotics Covid Rx: Remdesivir-contraindicated with MARY Decadron-Not indicated at this time Actemra-Not indicated at this time Regeneron monoclonal antibody administered 06/15/21 Monitor CRP Neurology consult recommended Medical Decision Making/Summary/Discussion:06/17/2021 Patient admitted with suspected COVID 19 infection Covid test confirmed positive. Infection Control Recommendations [place] Precautions Airborne isolation Droplet Isolation Antimicrobial Stewardship [...] History: Procedure Laterality Date APPENDECTOMY 1988 SECTION 2005 LAPAROSCOPY TUBAL LIGATION Medications: enoxaparin 30 mg [...] Friends and Family: Not on file Attends Holiness Services: Not on file Active Member of [...] 56* MONOPCT 3 6 BMP: Recent Labs 06/15/2161906/15/2161906/16/2125 06/16/2125 06/16/21 2300 06/17/21 0540 NA 134* < [...] not displayed. Hepatic Function Panel: Recent Labs 06/16/2162406/17/21 0540 PROT 5.0* 6.4 LABALBU 3.0* 3.8 [...] lobe consolidation concerning for pneumonia. Medical Decision Drkwyi-Egzxvrtb-Ztzhr: Medical Decision Making-Other: Note: Labs, medications, radiologic studies were reviewed with personal review of films Large amounts of data were reviewed Discussed with nursing Staff, sales planner Infection Control and Prevention measures reviewed All prior entries were reviewed Administer medications as ordered Prognosis: Guarded Discharge planning reviewed Thank you for allowing us to participate in the care of this patient. Please call with questions. Leonila Sampson, PODIATRY DOCTOR - INSULATOR TECHNICIAN ATTESTATION: I have discussed the case, including pertinent history and exam findings with the PODIATRY DOCTOR. I have evaluated the History, physical findings and pictures of the patient and the montemayor elements of the encounter have been performed by me. I have reviewed the laboratory data, other diagnostic studies and discussed them with the PODIATRY DOCTOR. I have updated the medical record where necessary. I agree with the assessment, plan and orders as documented by the PODIATRY DOCTOR. Rene Mccall MD. Pager: - Office: * Tri Cooper PTA - 06/17/2021 9:47 AM EST Physical Therapy Facility/Department: [facility] Daily Treatment Note NAME: Tanja [...] No Referring Practitioner: SANDY Trujillo Subjective Subjective: Pt. agreeable to sit EOB [...] Out 0826 Minutes 11 Tri Cooper PTA * Zoey Ramirez RN - 06/17/2021 4:24 AM EST Pt ambulated to bathroom and back, was able to have some conversation with typewriter ribbon winder, unable to tell typewriter ribbon winder where she was but did follow commands to go to the bathroom, patient was tearful at times and stating she wanted to go home, typewriter ribbon winder gave comfort and educated patient that she needed to stay a while longer to get better, patient voiced understanding. Will continue to monitor. * Zoey Ramirez RN - 06/16/2021 8:00 PM EST updated via telephone * Zoey Ramirez RN - 06/16/2021 7:00 PM EST Pt resting in bed with eyes closed, unable to follow commands at this time, will answer name, unable to tell where she is but shakes her head that she knows where she is, lung sounds diminished, shakes head no for pain, FLACC 0, valle patent draining clear yellow urine, will continue to monitor. * Kiah Coto, OT - 06/16/2021 3:28 PM EST Occupational Therapy Facility/Department: [facility] Daily Treatment Note NAME: Tanja Carrero : 1965 Date of Service: 06/16/2021 Discharge Recommendations: Continue to assess pending progress, IP Rehab, Subacute/Nursing Home Facility Assessment OT Education: OT Role; Plan [...] Safety Education & Training, Patient/Caregiver Education & Training,Equipment Evaluation, Education, & procurement, Self-Care / ADL, Cognitive/Perceptual Training G-Code OutComes Score AM-PAC Score Goals Short term goals Short term goal 1: Patient to engage in self feeding c min A c <50% VC for initiation of task. Short term goal 2: Patient to engage in simple UB self care (grooming, dressing, bathing) c min A c<50% VC for initiated and engagement in self care. Short term goal 3: Patient to engage daily in BUE A/AA/PROM to maintian ROM throughout hospital stay. Short term goal 4: Patient to complete ADL transfers c Min A x 1 c improved safety. Therapy Time Individual Concurrent Group Co-treatment Time In 1430 Time Out 1453 Minutes 23 Kiah Coto OT * Rene Mccall MD - 06/16/2021 1:50 PM EST Images from the original note were not included. [facility] - Telemedicine Progress Note COVID 19 Patient Today's Date and Time: 06/16/2021, 1:50 PM Impression : COVID 19 Confirmed Infection Covid tests: 06/14/21: Positive Altered mentation Possible left maxillary sinusitis Seizure history on Topamax Has not received the Covid vaccine Patient evaluated by Telemedicine. Requesting Institution: [facility] Provider Institution: [facility] Dima Ortez Intermediary Person at [facility]: MAGDA Callejas Recommendations: Antibiotic treatment: Monitor off antibiotics Covid Rx: Remdesivir-contraindicated with MARY Decadron-Not indicated at this time Actemra-Not indicated at this time Regeneron monoclonal antibody administered 06/15/21 Monitor CRP Neurology consult recommended Medical Decision Making/Summary/Discussion:06/16/2021 Patient admitted with suspected COVID 19 infection Covid test confirmed positive. Infection Control Recommendations [place] Precautions Airborne isolation Droplet Isolation Antimicrobial Stewardship [...] Friends and Family: Not on file Attends Holiness Services: Not on file Active Member of [...] following labs: CBC with Differential: Recent Labs 06/15/2161906/16/21624 WBC 4.1 3.0* HGB 13.7 10.2* HCT 39.6 30.3* PLT 177 101* LYMPHOPCT 13* 22* MONOPCT 8 3 BMP: Recent Labs 11/16/21 0620 11/17/21 0625 NA 134* 140 K 3.2* 2.2* [...] lobe consolidation concerning for pneumonia. Medical Decision [id number]: Medical Decision Making-Other: Note: Labs, medications, radiologic studies were reviewed with personal review of films Large amounts of data were reviewed Discussed with nursing Staff, sales planner Infection Control and Prevention measures reviewed All prior entries were reviewed Administer medications as ordered Prognosis: Guarded Discharge planning reviewed Thank you for allowing us to participate in the care of this patient. Please call with questions. Leonial Sampson, PODIATRY DOCTOR - INSULATOR TECHNICIAN ATTESTATION: I have discussed the case, including pertinent history and exam findings with the PODIATRY DOCTOR. I have evaluated the History, physical findings and pictures of the patient and the montemayor elements of the encounter have been performed by me. I have reviewed the laboratory data, other diagnostic studies and discussed them with the PODIATRY DOCTOR. I have updated the medical record where necessary. I agree with the assessment, plan and orders as documented by the PODIATRY DOCTOR. Rene Mccall MD. Pager: - Office: * Elba Roe RN - 06/16/2021 12:45 PM EST Patient off the floor for MRI at this time. * ESTEVAN Downs - 06/16/2021 10:15 AM EST Spoke with Patient , Natacha, via telephone conversation this a.m. re: discharge planning. Patient is a 55 year old , white female, admitted with a diagnosis of Covid 19 virus infection. Patient is noted to be confused at this time. This is not her normal, per . wishes tobring Patient home upon discharge and will be available to care for her along with potential home health referral for nursing. [place] her and 16 year old daughter. Patient independent with all ADL's prior to this illness/hospitalization. Patient uses no DME, per her . She was utilizing no outside resources or services currently. Patient drives herself and provides for her own t ransportation needs and also drives. is currently laid off from his job so he is able to care for Patient if/as needed. PCP is Dr. Cristobal Richardson. Patient has [employer] Medicaid and states that medications are covered well by this insurance. Discharge plan is home with family when stable. Patient is a 'Full Code' status and to 's knowledge she does not currently have medical directives in place. Patient open to home health referral, per spouse, as needed. No further needs or concerns identified by preston at this time. ASSEMBLER DC FIELD RING to remain involved and monitor/assist with discharge planning needs as appropriate. ESTEVAN Downs 06/16/2021 * Alecia Pretty, PODIATRY DOCTOR - INSULATOR TECHNICIAN - 06/16/2021 9:32 AM EST Progress Note SUBJECTIVE: Patient seen for f/u [...] ml Output 2400 ml Net 2849 ml Exam: GEN: lethargic and does not follow [...] commands SKIN: No rashes. No skin lesions. Diagnostic Data: Complete Blood Count: Recent Labs 06/14/21 1500 06/15/21 0606/16/21 0625 WBC 4.3 4.1 3.0* RBC 5.61* 4.52 3.38* HGB 16.9* 13.7 10.2* HCT 49.7* 39.6 30.3* MCV 88.6 87.6 89.6 MCH 30.1 30.3 30.2 MCHC 34.0 34.6 33.7 RDW 13.5 13.7 14.1 PLT 256 177 101* MPV 10.0 10.0 10.4 Last 3 Blood Glucose: Recent Labs 06/14/21 1500 06/14/21 1514 06/15/21 0620 06/16/21 0625 GLUCOSE 119* 117 114* 89 Comprehensive [...] increasing. Nutrition status: at risk for malnutrition Workers Compensation Claims Assistant consult initiated Hospital Prophylaxis: DVT: Lovenox Stress Ulcer: H2 Heath High risk medications: none Disposition: Discharge plan is pending Alecia Pretty APRN - INSULATOR TECHNICIAN , PODIATRY DOCTOR, FLOOR SANDER-C Hospitalist Medicine 06/16/2021, 9:34 AM Associated attestation - Benito Oneal MD - 06/16/2021 3:39 PM EST Attending Supervising Physician s Attestation Statement I have personally evaluated and examined the patient [id number] in conjunction with the nurse practitioner. I [...] Examined and Reviewed plan of care with FLOOR SANDER. Directions and discussion about care and plans. [...] patient. Electronically signed by Benito Oneal MD * Elba Roe RN - 06/16/2021 8:01 AM EST Updated at this time. * Zoey Ramirez RN - 06/16/2021 4:46 AM EST Pt repositioned in bed, bath and floyd care given, gown changed. * Zoey Ramirez RN - 06/15/2021 11:45 PM EST Pt resting in bed with eyes closed, answers to name, unable to follow simple commands, unable to tell correct date, continues with dry cough, denies any pain, valle draining clear yellow urine, 400mlout put at this time, will continue to monitor. * Zoey Ramirez RN - 06/15/2021 8:30 PM EST Patient's updated via telephone * Zoey Ramirez RN - 06/15/2021 8:00 PM EST Pt would not swallow medications, could not follow command to swallow medications, medications crushed and placed in applesauce for safety, patient able to swallow applesauce without issues, patient had trouble comprehending to suck from the straw but was able to after much encouragement, will continue to monitor. * Zoey Ramirez RN - 06/15/2021 6:30 PM EST Pt resting in bed with eyes closed, unable to follow simple commands, unable to correct date of , current year, or what her husbands name was, flat affect noted, noted to have frequent dry cough, denies any pain, lung sounds clear upper bases, diminished lower bases bilateral. Valle intact draining clear yellow urine, will continue to monitor. * Emily Vergara RN - 06/15/2021 4:23 PM EST Patient's Natacha updated via telephone. * Emily Vergara RN - 06/15/2021 2:[address] Mccall notified of infectious disease consult via [employer]. * Kelvin Fink, PT - 06/15/2021 1:42 PM EST Physical Therapy Facility/Department: [facility] Initial Assessment NAME: Tanja Carrero [...] address all concerns and safely return to [facility]. Treatment Diagnosis: Difficulty walking Prognosis: Good; Fair [...] Timed Code Treatment Minutes: 14 Minutes Kelvin Fink, PT, DPT * Candelaria Julio Cesar OTR/L - 06/15/2021 1:40 PM EST Occupational Therapy Occupational Therapy Initial Assessment Date: 06/15/2021 Patient Name: Tanja Carrero : 1965 Date of Service: 06/15/2021 Discharge Recommendations: Continue to assess pending progress, IP Rehab, Subacute/Nursing Home Facility Assessment Performance deficits / Impairments: Decreased functional mobility ; Decreased ADL status; DecreasedROM; Decreased strength; Decreased safe awareness; Decreased cognition; Decreased endurance; Decreased balance; Decreased coordination; Decreased high-level IADLs Assessment: 55 y/o F admitted to [facility] following seizure approx 4-5 days ago and [...] Safety Education & Training, Patient/Caregiver Education & Training,Equipment Evaluation, Education, & procurement, Self-Care / ADL, Cognitive/Perceptual Training AM-PAC Score AM-PAC Inpatient Daily Activity Raw Score: 6 (06/15/21 1342) AM-PAC Inpatient ADL T-Scale Score : 17.07 (06/15/21 1342) ADL Inpatient CMS 0-100% Score: 100 (06/15/21 1342) ADL Inpatient CMS G-Code Modifier : CN (06/15/21 7344) Goals Short term goals Short term goal 1: Patient to engage in self feeding c min A c <50% VC for initiation of task. Short term goal 2: Patient to engage in simple UB self care (grooming, dressing, bathing) c min A c<50% VC for initiated and engagement in self care. Short term goal 3: Patient to engage daily in BUE A/AA/PROM to maintian ROM throughout hospital stay. Short term goal 4: Patient to complete ADL transfers c Min A x 1 c improved safety. Therapy Time Individual Concurrent Group Co-treatment Time In 1305 Time Out 1319 Minutes 14 Candelaria Harrell OTR/L * ESTEVAN Downs - 06/15/2021 1:04 PM EST Attempts made by telephone to contact Patient and her emergency contact have been unsuccessful. Will continue to try to determine discharge needs and coordinate discharge planning. ESTEVAN Downs 06/15/2021 * Emily Vergara RN - 06/15/2021 12:27 PM EST Patient requires assistance with meals. Sitting up [...] alarm activated and call light in reach. * Emily Vergara RN - 06/15/2021 11:05 AM EST Bladder scan with 832cc shown in bladder. Patient assisted up to BSC x2 assist, requires multiple cues and assistance with body positioning. Does not follow simple commands. Delayed responses. Patient does not void. Return to bed and indwelling valle placed, 1200cc out immediately. Urine sample sent to lab for UA. ISA Alston aware of all. * Emily Vergara RN - 06/15/2021 9:41 AM EST Patient sitting up in bed with meal [...] with eyes closed. Meds given on spoon, patienttakes with sips of water with direction and encouragement given. Patient only responding with one word answers or not at all. Breakfast again offered, patient declines, tray removed. Monoclonal antibodies infusing per orders. No s/s adverse reaction noted. Vital signs remain stable. Patient sitting up in bed, no change in condition noted. Bed alarm activated, call light in reach. * Emily Vergara RN - 06/15/2021 9:20 AM EST Patient's Natacha given update via telephone. * Riley Strong [facility] - 06/15/2021 7:22 AM EST Pharmacy Note COVID-19 Anticoagulation Adjustment Tanja Carrero [...] index is 25.01 kg/m . Per the [facility] Anticoagulation Algorithm for COVID-19 positive or clinically-suspected patients, the following adjustment has been made per P&T Guidelines: Lovenox adjusted to 30 mg sq bid for BMI < 30 kg/m2 Thank you, Riley Strong [facility]., 06/15/2021, 7:21 AM * Emily Vergara RN - 06/15/2021 7:00 AM EST Patient alert, oriented to self only. Able [...] discomfort or distress. Call light in reach. * Morales Kaufman RD, LD - 06/15/2021 6:41 AM EST Comprehensive Nutrition Assessment Type and Reason for Visit: Initial (missing nutrition screenings) Nutrition Recommendations/Plan: Encourage oral intakes Nutrition Assessment: Predicted suboptimal nutrient intakes r/t altered respiratory status, AEB PO declines for 3-4 days per ER notes. Current weight is > historical values, which are rather remote (2012). She does not answer phone upon call to room, and noted decreased interactions with nursingearlier this AM. Will add Ensure to supplement, [...] assess Fluid Accumulation: No significant fluid accumulation Paper Deliverer Strength: Not Performed Estimated Daily Nutrient Needs: Energy (kcal): 7807-7069 (20-25); Weight Used for Energy Requirements: Current Protein (g): 80-92 (1.3-1.5); Weight Used for Protein Requirements: [place] Fluid (ml/day): 1800; Method Used for Fluid [...] 155 lb 9.6 oz (70.6 kg) (in 2012) [place] Body Weight: 135 lbs; % [place] Body Weight 118.3 % BMI: 25 Adjusted [...] Discharge Planning: Too soon to determine Contact: [phone] * Zoey Ramirez RN - 06/15/2021 6:00 AM EST Pt slept throughout night, respirations even and unlabored, no signs of distress noted, will continue to monitor * Zoey Ramirez RN - 06/14/2021 11:48 PM EST Pt called and was updated on patients condition, he stated that patient has been sick for aweek and was diagnosis with bronchitis about a week ago. * Zoey Ramirez RN - 06/14/2021 11:00 PM EST Pt resting in bed with eyes closed, re-assessment completed, no complaints voiced at this time, respirations even and unlabored, will continue to monitor. * Zoey Ramirez RN - 06/14/2021 9:00 PM EST Pt admitted to floor, patient alert to place and situation, unable to tell date, noted to have flataffect, noted to have moist non-productive cough, lung sounds diminished in lower bases, denies anypain, denies any nausea at this time. No other complaints voiced will continue to monitor. documented in this [employer] Phone: [phone] 364-788411-19-2021 Hospital Discharge instructions* Discharge Instr - Activity* Elba Roe RN - 06/18/2021 1:29 PM EST No restrictions to activity. * Discharge Instr - Diet* Elba Roe RN - 06/18/2021 1:29 PM [...] at most local grocery stores, pharmacies, and chain [employer]-stores. If you have any questions about your diet or nutrition, call the hospital and ask for the dietitian. Resume general diet. * Additional Instructions* Elba Roe RN - 06/18/2021 You must quarantine through June 24, 2021. * Attachments The following attachments cannot be sent through Care Everywhere. * Coronavirus Disease (COVID-19): Caring for Yourself: Quick List ([place]) * Coronavirus Disease (COVID-19): Hospital Discharge ([place]) documented in this [employer] Phone: [phone] 746-730211-17-2021 Note1. Patient motion limits evaluation. 2. No acute intracranial abnormality. No acute infarct. 3. Minimal chronic microvascular ischemic changes. 4. Tiny dorsal callosal lipoma. 5. Scattered mucosal thickening of the paranasal sinuses. [facility] CONSOLIDATED[facility] + Plan note Future Appointments Appointment Date:01/02/2025 01:00:00 PM Scheduled Provider:Saumya Pulido MD Location[facility] Appointment Type:[facility] Evaluation + Plan note Future Appointments Appointment Date:01/29/2025 01:40:00 PM Scheduled Provider: Location:[facility] Appointment Type:Surgery FT [facility] Evaluation + Plan note Future Appointments Appointment Date:04/03/2025 12:15:00 PM Scheduled Provider:Saumya Pulido MD Location:[facility] Appointment Type:[facility] Follow Up [facility] Evaluation note* Diagnosis COVID-19 virus infection- Primary Intractable vomiting with nausea, unspecified vomiting type COVID Pneumonia of right lower lobe due to infectious organism Dehydration Disorientation Other general symptoms Encephalopathy due to COVID-19 virus Hypokalemia Hypopotassemia documented in this encounter [employer] Phone: [email or web address] note* Diagnosis Seizure (HCC)- Primary Other convulsions Closed fracture of left foot, initial encounter Closed fracture of distal end of left fibula, unspecified fracture morphology, initial encounter documented in this encounter [employer] Phone: [email or web address] note* Diagnosis Multiple fractures of foot, left, closed, initial encounter- Primary Ankle fracture, bimalleolar, closed, left, initial encounter Seizure (HCC) Other convulsions documented in this encounter [employer] Phone: [email or web address] note* Diagnosis 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/HCC) Other convulsions Primary insomnia Persistent disorder of initiating or maintaining sleep Thyroid nodule ([facility]/HCC) Nontoxic uninodular goiter Hypothyroidism (acquired) ([facility]/HCC) Unspecified hypothyroidism Major depressive disorder with single episode, in remission (HCC) ([facility]) Mixed hyperlipidemia ([facility]/HCC) Mixed hyperlipidemia Anxiety Anxiety state, unspecified Vitamin D deficiency Environmental and seasonal allergies Gastroesophageal reflux disease, unspecified whether esophagitis present MARY (generalized anxiety disorder) ([facility]) Generalized anxiety disorder Simple chronic bronchitis (CMS/HCC) Simple chronic bronchitis Anxiety and depression ([facility]/HCC)- Primary Simple chronic bronchitis ([facility]/HCC) Simple chronic bronchitis Anxiety Anxiety state, unspecified Vitamin D deficiency Environmental and seasonal allergies Major depressive disorder with single episode, in remission (HCC) ([facility]) MARY (generalized anxiety disorder) ([facility]) Generalized anxiety disorder Seizures ([facility]) Other convulsions Mixed hyperlipidemia ([facility]) Mixed hyperlipidemia Gastroesophageal reflux disease, unspecified whether esophagitis present Hypothyroidism (acquired) ([facility]) Unspecified hypothyroidism Osteoporosis, unspecified osteoporosis type, unspecified pathological fracture presence ([facility]) Tobacco user Tobacco use disorder Obesity with body mass index (BMI) of 30.0 to 39.9 Age-related osteoporosis without current pathological fracture ([facility])- Primary Obesity with body mass index (BMI) of 30.0 to 39.9 Tobacco user Tobacco use disorder MARY (generalized anxiety disorder) ([facility])- Primary Generalized anxiety disorder Simple chronic bronchitis ([facility]) Simple chronic bronchitis Seizures ([facility]) Other convulsions Gastroesophageal reflux disease, unspecified whether esophagitis present Osteoporosis, unspecified osteoporosis type, unspecified pathological fracture presence ([facility]) Hypothyroidism (acquired) ([facility]) Unspecified hypothyroidism Anxiety and depression ([facility]) Rheumatoid arthritis, involving unspecified site, unspecified whether rheumatoid factor present ([facility]) Tobacco user Tobacco use disorder Migraine without status migrainosus, not intractable, unspecified migraine type ([facility]) Major depressive disorder with single episode, in remission (HCC) ([facility]) Mixed hyperlipidemia ([facility]) Mixed hyperlipidemia Vitamin D deficiency Environmental and seasonal allergies Hypomagnesemia Disorders of magnesium metabolism Osteoarthritis of spine with radiculopathy, lumbosacral region Hypothyroidism (acquired) ([facility])- Primary Unspecified hypothyroidism Nonintractable epilepsy without status epilepticus, unspecified epilepsy type ([facility]) Seizures ([facility]) Other convulsions Osteoporosis, unspecified osteoporosis type, unspecified pathological fracture presence ([facility]) Depression with anxiety Dysthymic disorder MARY (generalized anxiety disorder) ([facility]) Generalized anxiety disorder Rheumatoid arthritis, involving unspecified site, unspecified whether rheumatoid factor present ([facility]) Tobacco user Tobacco use disorder Abnormal weight gain Obesity with body mass index (BMI) of 30.0 to 39.9 Vitamin D deficiency Environmental and seasonal allergies documented [facility]* Diagnosis Anxiety and depression ([facility])- Primary Seizures ([facility]) Other convulsions Primary insomnia Persistent disorder of initiating or maintaining sleep Thyroid nodule ([facility] [facility] Nontoxic uninodular goiter Hypothyroidism (acquired) ([facility]) Unspecified hypothyroidism Major depressive disorder with single episode, in remission (HCC) ([facility]) Mixed hyperlipidemia ([facility]) Mixed hyperlipidemia Anxiety Anxiety state, unspecified Vitamin D deficiency Environmental and seasonal allergies Gastroesophageal reflux disease, unspecified whether esophagitis present MARY (generalized anxiety disorder) ([facility] Generalized anxiety disorder Simple chronic bronchitis ([facility]) Simple chronic bronchitis Anxiety and depression ([facility])- Primary Simple chronic bronchitis ([facility]) Simple chronic bronchitis Anxiety Anxiety state, unspecified Vitamin D deficiency Environmental and seasonal allergies Major depressive disorder with single episode, in remission (HCC) ([facility]) MARY (generalized anxiety disorder) ([facility]) Generalized anxiety disorder Seizures ([facility]) Other convulsions Mixed hyperlipidemia ([facility]) Mixed hyperlipidemia Gastroesophageal reflux disease, unspecified whether esophagitis present Hypothyroidism (acquired) ([facility]) Unspecified hypothyroidism Osteoporosis, unspecified osteoporosis type, unspecified pathological fracture presence ([facility]) Tobacco user Tobacco use disorder Obesity with body mass index (BMI) of 30.0 to 39.9 Age-related osteoporosis without current pathological fracture ([facility])- Primary Obesity with body mass index (BMI) of 30.0 to 39.9 Tobacco user Tobacco use disorder MARY (generalized anxiety disorder) ([facility])- Primary Generalized anxiety disorder Simple chronic bronchitis ([facility] Simple chronic bronchitis Seizures ([facility]) Other convulsions Gastroesophageal reflux disease, unspecified whether esophagitis present Osteoporosis, unspecified osteoporosis type, unspecified pathological fracture presence ([facility]) Hypothyroidism (acquired) ([facility] Unspecified hypothyroidism Anxiety and depression ([facility]) Rheumatoid arthritis, involving unspecified site, unspecified whether rheumatoid factor present ([facility]) Tobacco user Tobacco use disorder Migraine without status migrainosus, not intractable, unspecified migraine type ([facility]) Major depressive disorder with single episode, in remission (HCC) ([facility] Mixed hyperlipidemia ([facility]) Mixed hyperlipidemia Vitamin D deficiency Environmental and seasonal allergies Hypomagnesemia Disorders of magnesium metabolism Osteoarthritis of spine with radiculopathy, lumbosacral region Hypothyroidism (acquired) ([facility])- Primary Unspecified hypothyroidism Nonintractable epilepsy without status epilepticus, unspecified epilepsy type ([facility]) Seizures ([facility]) Other convulsions Osteoporosis, unspecified osteoporosis type, unspecified pathological fracture presence ([facility] Depression with anxiety Dysthymic disorder MARY (generalized anxiety disorder) ([facility]) Generalized anxiety disorder Rheumatoid arthritis, involving unspecified site, unspecified whether rheumatoid factor present ([facility]) Tobacco user Tobacco use disorder Abnormal weight gain Obesity with body mass index (BMI) of 30.0 to 39.9 Abnormal weight gain- Primary Tobacco user Tobacco use disorder MARY (generalized anxiety disorder) ([facility]) Generalized anxiety disorder Obesity with body mass index (BMI) of 30.0 to 39.9 Constipation, unspecified constipation type documented in [facility] Diagnosis Anxiety and depression ([facility])- Primary Seizures ([facility]) Other convulsions Primary insomnia Persistent disorder of initiating or maintaining sleep Thyroid nodule ([facility] Nontoxic uninodular goiter Hypothyroidism (acquired) ([facility]) Unspecified hypothyroidism Major depressive disorder with single episode, in remission (HCC) ([facility] [place]) Mixed hyperlipidemia ([facility]) Mixed hyperlipidemia Anxiety Anxiety state, unspecified Vitamin D deficiency Environmental and seasonal allergies Gastroesophageal reflux disease, unspecified whether esophagitis present MARY (generalized anxiety disorder) ([facility]) Generalized anxiety disorder Simple chronic bronchitis ([facility]) Simple chronic bronchitis Anxiety and depression ([facility])- Primary Simple chronic bronchitis ([facility]) Simple chronic bronchitis Anxiety Anxiety state, unspecified Vitamin D deficiency Environmental and seasonal allergies Major depressive disorder with single episode, in remission (HCC) ([facility]) MARY (generalized anxiety disorder) ([facility]) Generalized anxiety disorder Seizures ([facility]) Other convulsions Mixed hyperlipidemia ([facility]) Mixed hyperlipidemia Gastroesophageal reflux disease, unspecified whether esophagitis present Hypothyroidism (acquired) ([facility]) Unspecified hypothyroidism Osteoporosis, unspecified osteoporosis type, unspecified pathological fracture presence ([facility]) Tobacco user Tobacco use disorder Obesity with body mass index (BMI) of 30.0 to 39.9 Age-related osteoporosis without current pathological fracture ([facility])- Primary Obesity with body mass index (BMI) of 30.0 to 39.9 Tobacco user Tobacco use disorder MARY (generalized anxiety disorder) ([facility])- Primary Generalized anxiety disorder Simple chronic bronchitis ([facility]) Simple chronic bronchitis Seizures ([facility]) Other convulsions Gastroesophageal reflux disease, unspecified whether esophagitis present Osteoporosis, unspecified osteoporosis type, unspecified pathological fracture presence ([facility]) Hypothyroidism (acquired) ([facility] Unspecified hypothyroidism Anxiety and depression ([facility]) Rheumatoid arthritis, involving unspecified site, unspecified whether rheumatoid factor present ([facility]) Tobacco user Tobacco use disorder Migraine without status migrainosus, not intractable, unspecified migraine type ([facility]) Major depressive disorder with single episode, in remission (HCC) ([facility] Mixed hyperlipidemia ([facility]) Mixed hyperlipidemia Vitamin D deficiency Environmental and seasonal allergies Hypomagnesemia Disorders of magnesium metabolism Osteoarthritis of spine with radiculopathy, lumbosacral region Hypothyroidism (acquired) ([facility])- Primary Unspecified hypothyroidism Nonintractable epilepsy without status epilepticus, unspecified epilepsy type ([facility]) Seizures ([facility]) Other convulsions Osteoporosis, unspecified osteoporosis type, unspecified pathological fracture presence ([facility] Depression with anxiety Dysthymic disorder MARY (generalized anxiety disorder) ([facility]) Generalized anxiety disorder Rheumatoid arthritis, involving unspecified site, unspecified whether rheumatoid factor present ([facility]) Tobacco user Tobacco use disorder Abnormal weight gain Obesity with body mass index (BMI) of 30.0 to 39.9 Abnormal weight gain- Primary Tobacco user Tobacco use disorder MARY (generalized anxiety disorder) ([facility]) Generalized anxiety disorder Obesity with body mass index (BMI) of 30.0 to 39.9 Constipation, unspecified constipation type Major depressive disorder with single episode, in remission (HCC) ([facility]) [facility] Diagnosis Anxiety and depression ([facility])- Primary Seizures ([facility]) Other convulsions Primary insomnia Persistent disorder of initiating or maintaining sleep Thyroid nodule ([facility]) Nontoxic uninodular goiter Hypothyroidism (acquired) ([facility]) Unspecified hypothyroidism Major depressive disorder with single episode, in remission (HCC) ([facility]) Mixed hyperlipidemia ([facility]) Mixed hyperlipidemia Anxiety Anxiety state, unspecified Vitamin D deficiency Environmental and seasonal allergies Gastroesophageal reflux disease, unspecified whether esophagitis present MARY (generalized anxiety disorder) ([facility]) Generalized anxiety disorder Simple chronic bronchitis ([facility]) Simple chronic bronchitis Anxiety and depression ([facility])- Primary Simple chronic bronchitis ([facility]) Simple chronic bronchitis Anxiety Anxiety state, unspecified Vitamin D deficiency Environmental and seasonal allergies Major depressive disorder with single episode, in remission (HCC) ([facility]) MARY (generalized anxiety disorder) ([facility]) Generalized anxiety disorder Seizures ([facility]) Other convulsions Mixed hyperlipidemia ([facility]) Mixed hyperlipidemia Gastroesophageal reflux disease, unspecified whether esophagitis present Hypothyroidism (acquired) ([facility]) Unspecified hypothyroidism Osteoporosis, unspecified osteoporosis type, unspecified pathological fracture presence ([facility]) Tobacco user Tobacco use disorder Obesity with body mass index (BMI) of 30.0 to 39.9 Age-related osteoporosis without current pathological fracture ([facility])- Primary Obesity with body mass index (BMI) of 30.0 to 39.9 Tobacco user Tobacco use disorder MARY (generalized anxiety disorder) ([facility])- Primary Generalized anxiety disorder Simple chronic bronchitis ([facility]) Simple chronic bronchitis Seizures ([facility]) Other convulsions Gastroesophageal reflux disease, unspecified whether esophagitis present Osteoporosis, unspecified osteoporosis type, unspecified pathological fracture presence ([facility] Hypothyroidism (acquired) ([facility] [place]) Unspecified hypothyroidism Anxiety and depression ([facility]) Rheumatoid arthritis, involving unspecified site, unspecified whether rheumatoid factor present ([facility]) Tobacco user Tobacco use disorder Migraine without status migrainosus, not intractable, unspecified migraine type ([facility]) Major depressive disorder with single episode, in remission (HCC) ([facility] [place]) Mixed hyperlipidemia ([facility]) Mixed hyperlipidemia Vitamin D deficiency Environmental and seasonal allergies Hypomagnesemia Disorders of magnesium metabolism Osteoarthritis of spine with radiculopathy, lumbosacral region Hypothyroidism (acquired) ([facility])- Primary Unspecified hypothyroidism Nonintractable epilepsy without status epilepticus, unspecified epilepsy type ([facility]) Seizures ([facility]) Other convulsions Osteoporosis, unspecified osteoporosis type, unspecified pathological fracture presence ([facility] Depression with anxiety Dysthymic disorder MARY (generalized anxiety disorder) ([facility]) Generalized anxiety disorder Rheumatoid arthritis, involving unspecified site, unspecified whether rheumatoid factor present ([facility]) Tobacco user Tobacco use disorder Abnormal weight gain Obesity with body mass index (BMI) of 30.0 to 39.9 Abnormal weight gain- Primary Tobacco user Tobacco use disorder MARY (generalized anxiety disorder) ([facility]) Generalized anxiety disorder Obesity with body mass index (BMI) of 30.0 to 39.9 Constipation, unspecified constipation type Anxiety and depression ([facility])- Primary Abnormal weight gain Tobacco user Tobacco use disorder Osteoporosis, unspecified osteoporosis type, unspecified pathological fracture presence ([facility] Mixed hyperlipidemia ([facility]) Mixed hyperlipidemia Vitamin D deficiency Environmental and seasonal allergies Hypothyroidism (acquired) ([facility] [place]) Unspecified hypothyroidism Hypomagnesemia Disorders of magnesium metabolism Gastroesophageal reflux disease, unspecified whether esophagitis present MARY (generalized anxiety disorder) ([facility] [place]) Generalized anxiety disorder Major depressive disorder with single episode, in remission (HCC) ([facility] [place]) Seizures ([facility] [place]) Other convulsions Simple chronic bronchitis ([facility] [place]) Simple chronic bronchitis Chronic obstructive pulmonary disease, unspecified COPD type ([facility] [place]) Depression with anxiety Dysthymic disorder documented [facility]* Diagnosis Hypothyroidism (acquired) ([facility] [place])- Primary Unspecified hypothyroidism Mixed hyperlipidemia ([facility]) Mixed hyperlipidemia Hypomagnesemia Disorders of magnesium metabolism Osteoporosis, unspecified osteoporosis type, unspecified pathological fracture presence ([facility] [place]) documented [facility]* Diagnosis Major depressive disorder with single episode, in remission (HCC) ([facility] [place]) Mixed hyperlipidemia ([facility]) Mixed hyperlipidemia Anxiety Anxiety state, unspecified Vitamin D deficiency Environmental and seasonal allergies Hypothyroidism (acquired) ([facility] [place]) Unspecified hypothyroidism Gastroesophageal reflux disease, unspecified whether esophagitis present Anxiety and depression ([facility] [place]) MARY (generalized anxiety disorder) ([facility] [place]) Generalized anxiety disorder Seizures ([facility] [place]) Other convulsions Simple chronic bronchitis ([facility] [place]) Simple chronic bronchitis documented in [facility]* Diagnosis Obesity with body mass index (BMI) of 30.0 to 39.9- Primary documented in this [facility]* Diagnosis Hypothyroidism (acquired) ([facility] [place])- Primary Unspecified hypothyroidism documented in this [facility] Diagnosis MARY (generalized anxiety disorder) ([facility] [place])- Primary Generalized anxiety disorder Simple chronic bronchitis ([facility]) Simple chronic bronchitis Seizures ([facility] [place]) Other convulsions Gastroesophageal reflux disease, unspecified whether esophagitis present Osteoporosis, unspecified osteoporosis type, unspecified pathological fracture presence ([facility] [place]) Hypothyroidism (acquired) ([facility] [place]) Unspecified hypothyroidism Anxiety and depression ([facility] [place]) Rheumatoid arthritis, involving unspecified site, unspecified whether rheumatoid factor present ([facility]) Tobacco user Tobacco use disorder Migraine without status migrainosus, not intractable, unspecified migraine type ([facility]) Major depressive disorder with single episode, in remission (HCC) ([facility]) Mixed hyperlipidemia ([facility]) Mixed hyperlipidemia Vitamin D deficiency Environmental and seasonal allergies Hypomagnesemia Disorders of magnesium metabolism Osteoarthritis of spine with radiculopathy, lumbosacral region documented in this encounter [facility]* Diagnosis Hypothyroidism (acquired) ([facility])- Primary Unspecified hypothyroidism Nonintractable epilepsy without status epilepticus, unspecified epilepsy type ([facility]) Seizures ([facility]) Other convulsions Osteoporosis, unspecified osteoporosis type, unspecified pathological fracture presence ([facility]) Depression with anxiety Dysthymic disorder MARY (generalized anxiety disorder) ([facility]) Generalized anxiety disorder Rheumatoid arthritis, involving unspecified site, unspecified whether rheumatoid factor present ([facility]) Tobacco user Tobacco use disorder Abnormal weight gain Obesity with body mass index (BMI) of 30.0 to 39.9 documented in this [facility]* Diagnosis Osteoporosis, unspecified osteoporosis type, unspecified pathological fracture presence ([facility])- Primary documented in [facility]* Diagnosis Undifferentiated connective tissue disease ([facility] Primary Unspecified diffuse connective tissue disease Inflammatory arthritis Unspecified inflammatory polyarthropathy Multiple joint pain Pain in joint, multiple sites Degeneration of intervertebral disc of lumbar region with discogenic back pain Medication monitoring encounter Encounter for therapeutic drug monitoring DDD (degenerative disc disease), cervical Degeneration of cervical intervertebral disc [facility] Diagnosis [facility]xiety and depression ([facility])- Primary Seizures ([facility] Other convulsions Primary insomnia Persistent disorder of initiating or maintaining sleep Thyroid nodule [facility] [facility] Nontoxic uninodular goiter Hypothyroidism (acquired) ([facility]) Unspecified hypothyroidism Major depressive disorder with single episode, in remission (HCC) ([facility]) Mixed hyperlipidemia ([facility]) Mixed hyperlipidemia Anxiety Anxiety state, unspecified Vitamin D deficiency Environmental and seasonal allergies Gastroesophageal reflux disease, unspecified whether esophagitis present MARY (generalized anxiety disorder) ([facility] Generalized anxiety disorder Simple chronic bronchitis ([facility]) Simple chronic bronchitis Anxiety and depression ([facility])- Primary Simple chronic bronchitis ([facility]) Simple chronic bronchitis Anxiety Anxiety state, unspecified Vitamin D deficiency Environmental and seasonal allergies Major depressive disorder with single episode, in remission (HCC) ([facility] [place]) MARY (generalized anxiety disorder) ([facility] [place]) Generalized anxiety disorder Seizures ([facility] [place]) Other convulsions Mixed hyperlipidemia ([facility]) Mixed hyperlipidemia Gastroesophageal reflux disease, unspecified whether esophagitis present Hypothyroidism (acquired) ([facility]) Unspecified hypothyroidism Osteoporosis, unspecified osteoporosis type, unspecified pathological fracture presence ([facility]) Tobacco user Tobacco use disorder Obesity with body mass index (BMI) of 30.0 to 39.9 Age-related osteoporosis without current pathological fracture ([facility] [place])- Primary Obesity with body mass index (BMI) of 30.0 to 39.9 Tobacco user Tobacco use disorder MARY (generalized anxiety disorder) ([facility] [place])- Primary Generalized anxiety disorder Simple chronic bronchitis ([facility]) Simple chronic bronchitis Seizures ([facility]) Other convulsions Gastroesophageal reflux disease, unspecified whether esophagitis present Osteoporosis, unspecified osteoporosis type, unspecified pathological fracture presence ([facility] [place]) Hypothyroidism (acquired) ([facility] [place]) Unspecified hypothyroidism Anxiety and depression ([facility] [place]) Rheumatoid arthritis, involving unspecified site, unspecified whether rheumatoid factor present ([facility]) Tobacco user Tobacco use disorder Migraine without status migrainosus, not intractable, unspecified migraine type ([facility]) Major depressive disorder with single episode, in remission (HCC) ([facility] [place]) Mixed hyperlipidemia ([facility]) Mixed hyperlipidemia Vitamin D deficiency Environmental and seasonal allergies Hypomagnesemia Disorders of magnesium metabolism Osteoarthritis of spine with radiculopathy, lumbosacral region Hypothyroidism (acquired) ([facility] [place])- Primary Unspecified hypothyroidism Nonintractable epilepsy without status epilepticus, unspecified epilepsy type ([facility]) Seizures ([facility]) Other convulsions Osteoporosis, unspecified osteoporosis type, unspecified pathological fracture presence ([facility]) Depression with anxiety Dysthymic disorder MARY (generalized anxiety disorder) ([facility]) Generalized anxiety disorder Rheumatoid arthritis, involving unspecified site, unspecified whether rheumatoid factor present ([facility]) Tobacco user Tobacco use disorder Abnormal weight gain Obesity with body mass index (BMI) of 30.0 to 39.9 Abnormal weight gain- Primary Tobacco user Tobacco use disorder MARY (generalized anxiety disorder) ([facility]) Generalized anxiety disorder Obesity with body mass index (BMI) of 30.0 to 39.9 Constipation, unspecified constipation type Anxiety and depression ([facility])- Primary Abnormal weight gain Tobacco user Tobacco use disorder Osteoporosis, unspecified osteoporosis type, unspecified pathological fracture presence ([facility] Mixed hyperlipidemia ([facility]) Mixed hyperlipidemia Vitamin D deficiency Environmental and seasonal allergies Hypothyroidism (acquired) ([facility]) Unspecified hypothyroidism Hypomagnesemia Disorders of magnesium metabolism Gastroesophageal reflux disease, unspecified whether esophagitis present MARY (generalized anxiety disorder) ([facility]) Generalized anxiety disorder Major depressive disorder with single episode, in remission (HCC) ([facility]) Seizures ([facility]) Other convulsions Simple chronic bronchitis ([facility]) Simple chronic bronchitis Chronic obstructive pulmonary disease, unspecified COPD type ([facility]) Depression with anxiety Dysthymic disorder Simple chronic bronchitis ([facility] Simple chronic bronchitis documented in this encounter [facility] HealthcareEvaluation note* Diagnosis Undifferentiated connective tissue disease ([facility])- Primary Unspecified diffuse connective tissue disease Rheumatoid factor positive Other and unspecified nonspecific immunological findings Fibromyalgia Unspecified myalgia and myositis Trochanteric bursitis of both hips DDD (degenerative disc disease), cervical Degeneration of cervical intervertebral disc DDD (degenerative disc disease), lumbar Degeneration of lumbar or lumbosacral intervertebral disc Medication monitoring encounter Encounter for therapeutic drug monitoring [facility] Diagnosis Undifferentiated connective tissue disease ([facility])- Primary Unspecified diffuse connective tissue disease Fibromyalgia Unspecified myalgia and myositis Trochanteric bursitis of both hips DDD (degenerative disc disease), cervical Degeneration of cervical intervertebral disc DDD (degenerative disc disease), lumbar Degeneration of lumbar or lumbosacral intervertebral disc Medication monitoring encounter Encounter for therapeutic drug monitoring [facility] Diagnosis DDD (degenerative disc disease), cervical Degeneration of cervical intervertebral disc [facility] Diagnosis DDD (degenerative disc disease), cervical Degeneration of cervical intervertebral disc [facility] Diagnosis Anxiety and depression ([facility])- Primary Seizures ([facility]) Other convulsions Primary insomnia Persistent disorder of initiating or maintaining sleep Thyroid nodule ([facility]) Nontoxic uninodular goiter Hypothyroidism (acquired) ([facility]) Unspecified hypothyroidism Major depressive disorder with single episode, in remission (HCC) ([facility]) Mixed hyperlipidemia ([facility]) Mixed hyperlipidemia Anxiety Anxiety state, unspecified Vitamin D deficiency Environmental and seasonal allergies Gastroesophageal reflux disease, unspecified whether esophagitis present MARY (generalized anxiety disorder) ([facility]) Generalized anxiety disorder Simple chronic bronchitis ([facility]) Simple chronic bronchitis Anxiety and depression ([facility])- Primary Simple chronic bronchitis ([facility]) Simple chronic bronchitis Anxiety Anxiety state, unspecified Vitamin D deficiency Environmental and seasonal allergies Major depressive disorder with single episode, in remission (HCC) ([facility] [place]) MARY (generalized anxiety disorder) ([facility]) Generalized anxiety disorder Seizures ([facility]) Other convulsions Mixed hyperlipidemia ([facility]) Mixed hyperlipidemia Gastroesophageal reflux disease, unspecified whether esophagitis present Hypothyroidism (acquired) ([facility]) Unspecified hypothyroidism Osteoporosis, unspecified osteoporosis type, unspecified pathological fracture presence ([facility]) Tobacco user Tobacco use disorder Obesity with body mass index (BMI) of 30.0 to 39.9 Age-related osteoporosis without current pathological fracture ([facility] [place])- Primary Obesity with body mass index (BMI) of 30.0 to 39.9 Tobacco user Tobacco use disorder MARY (generalized anxiety disorder) ([facility] [place])- Primary Generalized anxiety disorder Simple chronic bronchitis ([facility]) Simple chronic bronchitis Seizures ([facility]) Other convulsions Gastroesophageal reflux disease, unspecified whether esophagitis present Osteoporosis, unspecified osteoporosis type, unspecified pathological fracture presence ([facility] [place]) Hypothyroidism (acquired) ([facility] [place]) Unspecified hypothyroidism Anxiety and depression ([facility] [place]) Rheumatoid arthritis, involving unspecified site, unspecified whether rheumatoid factor present ([facility]) Tobacco user Tobacco use disorder Migraine without status migrainosus, not intractable, unspecified migraine type ([facility]) Major depressive disorder with single episode, in remission (HCC) ([facility] [place]) Mixed hyperlipidemia ([facility]) Mixed hyperlipidemia Vitamin D deficiency Environmental and seasonal allergies Hypomagnesemia Disorders of magnesium metabolism Osteoarthritis of spine with radiculopathy, lumbosacral region Hypothyroidism (acquired) ([facility])- Primary Unspecified hypothyroidism Nonintractable epilepsy without status epilepticus, unspecified epilepsy type ([facility]) Seizures ([facility]) Other convulsions Osteoporosis, unspecified osteoporosis type, unspecified pathological fracture presence ([facility]) Depression with anxiety Dysthymic disorder MARY (generalized anxiety disorder) ([facility] [place]) Generalized anxiety disorder Rheumatoid arthritis, involving unspecified site, unspecified whether rheumatoid factor present ([facility]) Tobacco user Tobacco use disorder Abnormal weight gain Obesity with body mass index (BMI) of 30.0 to 39.9 Abnormal weight gain- Primary Tobacco user Tobacco use disorder MARY (generalized anxiety disorder) ([facility]) Generalized anxiety disorder Obesity with body mass index (BMI) of 30.0 to 39.9 Constipation, unspecified constipation type Anxiety and depression ([facility])- Primary Abnormal weight gain Tobacco user Tobacco use disorder Osteoporosis, unspecified osteoporosis type, unspecified pathological fracture presence ([facility] Mixed hyperlipidemia ([facility]) Mixed hyperlipidemia Vitamin D deficiency Environmental and seasonal allergies Hypothyroidism (acquired) ([facility]) Unspecified hypothyroidism Hypomagnesemia Disorders of magnesium metabolism Gastroesophageal reflux disease, unspecified whether esophagitis present MARY (generalized anxiety disorder) ([facility]) Generalized anxiety disorder Major depressive disorder with single episode, in remission (HCC) ([facility]) Seizures ([facility]) Other convulsions Simple chronic bronchitis ([facility]) Simple chronic bronchitis Chronic obstructive pulmonary disease, unspecified COPD type ([facility]) Depression with anxiety Dysthymic disorder Simple chronic bronchitis ([facility]) Simple chronic bronchitis Osteoporosis, unspecified osteoporosis type, unspecified pathological fracture presence ([facility]) Major depressive disorder with single episode, in remission (HCC) ([facility]) Mixed hyperlipidemia ([facility]) Mixed hyperlipidemia Vitamin D deficiency Environmental and seasonal allergies Hypothyroidism (acquired) ([facility]) Unspecified hypothyroidism Hypomagnesemia Disorders of magnesium metabolism Gastroesophageal reflux disease, unspecified whether esophagitis present Anxiety and depression ([facility]) MARY (generalized anxiety disorder) ([facility] Generalized anxiety disorder Seizures ([facility] Other convulsions documented in this encounter [facility] HealthcareEvaluation note* Diagnosis Undifferentiated connective tissue disease- [...] [facility] System[facility]* Diagnosis [facility]xiety and depression ([facility])- Primary Seizures ([facility]) Other convulsions Primary insomnia Persistent disorder of initiating or maintaining sleep Thyroid nodule ([facility]) Nontoxic uninodular goiter Hypothyroidism (acquired) ([facility]) Unspecified hypothyroidism Major depressive disorder with single episode, in remission (HCC) ([facility]) Mixed hyperlipidemia ([facility]) Mixed hyperlipidemia Anxiety Anxiety state, unspecified Vitamin D deficiency Environmental and seasonal allergies Gastroesophageal reflux disease, unspecified whether esophagitis present MARY (generalized anxiety disorder) ([facility] Generalized anxiety disorder Simple chronic bronchitis ([facility]) Simple chronic bronchitis Anxiety and depression ([facility])- Primary Simple chronic bronchitis ([facility]) Simple chronic bronchitis Anxiety Anxiety state, unspecified Vitamin D deficiency Environmental and seasonal allergies Major depressive disorder with single episode, in remission (HCC) ([facility]) MARY (generalized anxiety disorder) ([facility]) Generalized anxiety disorder Seizures ([facility]) Other convulsions Mixed hyperlipidemia ([facility]) Mixed hyperlipidemia Gastroesophageal reflux disease, unspecified whether esophagitis present Hypothyroidism (acquired) ([facility]) Unspecified hypothyroidism Osteoporosis, unspecified osteoporosis type, unspecified pathological fracture presence ([facility]) Tobacco user Tobacco use disorder Obesity with body mass index (BMI) of 30.0 to 39.9 Age-related osteoporosis without current pathological fracture ([facility])- Primary Obesity with body mass index (BMI) of 30.0 to 39.9 Tobacco user Tobacco use disorder MARY (generalized anxiety disorder) ([facility])- Primary Generalized anxiety disorder Simple chronic bronchitis ([facility] Simple chronic bronchitis Seizures ([facility]) Other convulsions Gastroesophageal reflux disease, unspecified whether esophagitis present Osteoporosis, unspecified osteoporosis type, unspecified pathological fracture presence ([facility]) Hypothyroidism (acquired) ([facility] Unspecified hypothyroidism Anxiety and depression ([facility]) Rheumatoid arthritis, involving unspecified site, unspecified whether rheumatoid factor present ([facility]) Tobacco user Tobacco use disorder Migraine without status migrainosus, not intractable, unspecified migraine type ([facility]) Major depressive disorder with single episode, in remission (HCC) ([facility]) Mixed hyperlipidemia ([facility]) Mixed hyperlipidemia Vitamin D deficiency Environmental and seasonal allergies Hypomagnesemia Disorders of magnesium metabolism Osteoarthritis of spine with radiculopathy, lumbosacral region Hypothyroidism (acquired) ([facility])- Primary Unspecified hypothyroidism Nonintractable epilepsy without status epilepticus, unspecified epilepsy type ([facility]) Seizures ([facility]) Other convulsions Osteoporosis, unspecified osteoporosis type, unspecified pathological fracture presence ([facility]) Depression with anxiety Dysthymic disorder MARY (generalized anxiety disorder) ([facility]) Generalized anxiety disorder Rheumatoid arthritis, involving unspecified site, unspecified whether rheumatoid factor present ([facility]) Tobacco user Tobacco use disorder Abnormal weight gain Obesity with body mass index (BMI) of 30.0 to 39.9 Abnormal weight gain- Primary Tobacco user Tobacco use disorder MARY (generalized anxiety disorder) ([facility]) Generalized anxiety disorder Obesity with body mass index (BMI) of 30.0 to 39.9 Constipation, unspecified constipation type Anxiety and depression ([facility])- Primary Abnormal weight gain Tobacco user Tobacco use disorder Osteoporosis, unspecified osteoporosis type, unspecified pathological fracture presence ([facility] Mixed hyperlipidemia ([facility]) Mixed hyperlipidemia Vitamin D deficiency Environmental and seasonal allergies Hypothyroidism (acquired) ([facility]) Unspecified hypothyroidism Hypomagnesemia Disorders of magnesium metabolism Gastroesophageal reflux disease, unspecified whether esophagitis present MARY (generalized anxiety disorder) ([facility]) Generalized anxiety disorder Major depressive disorder with single episode, in remission (HCC) ([facility]) Seizures ([facility]) Other convulsions Simple chronic bronchitis ([facility]) Simple chronic bronchitis Chronic obstructive pulmonary disease, unspecified COPD type ([facility]) Depression with anxiety Dysthymic disorder Hypothyroidism (acquired) ([facility])- Primary Unspecified hypothyroidism Rheumatoid arthritis, unspecified Chronic kidney disease, stage 3a (HCC) ([facility]) Seizures ([facility]) Other convulsions Gastroesophageal reflux disease, unspecified whether esophagitis present Age-related osteoporosis without current pathological fracture ([facility]) Cigarette nicotine dependence without complication MARY (generalized anxiety disorder) ([facility]) Generalized anxiety disorder Hypomagnesemia Disorders of magnesium metabolism Migraine without status migrainosus, not intractable, unspecified migraine type ([facility]) Mild episode of recurrent major depressive disorder (HCC) ([facility]) Mixed hyperlipidemia ([facility]) Mixed hyperlipidemia Osteoporosis, unspecified osteoporosis type, unspecified pathological fracture presence ([facility]) Major depressive disorder with single episode, in remission (HCC) ([facility]) Vitamin D deficiency Environmental and seasonal allergies Anxiety and depression ([facility]) Simple chronic bronchitis ([facility]) Simple chronic bronchitis Insomnia, unspecified type Gastroesophageal reflux disease, unspecified whether esophagitis present- Primary Rheumatoid arthritis with positive rheumatoid factor, involving unspecified site ([facility]) Cigarette nicotine dependence without complication Encounter for screening mammogram for malignant neoplasm of breast Multiple thyroid nodules ([facility]/HCC)- Primary Nontoxic multinodular goiter documented in this encounter [facility] Diagnosis Anxiety and depression ([facility]/HCC)- Primary Seizures ([facility]/HCC) Other convulsions Primary insomnia Persistent disorder of initiating or maintaining sleep Thyroid nodule ([facility]/HCC) Nontoxic uninodular goiter Hypothyroidism (acquired) ([facility]/HCC) Unspecified hypothyroidism Major depressive disorder with single episode, in remission (HCC) ([facility]) Mixed hyperlipidemia ([facility]/HCC) Mixed hyperlipidemia Anxiety Anxiety state, unspecified Vitamin D deficiency Environmental and seasonal allergies Gastroesophageal reflux disease, unspecified whether esophagitis present MARY (generalized anxiety disorder) ([facility]) Generalized anxiety disorder Simple chronic bronchitis ([facility]/HCC) Simple chronic bronchitis Anxiety and depression ([facility])- Primary Simple chronic bronchitis ([facility]) Simple chronic bronchitis Anxiety Anxiety state, unspecified Vitamin D deficiency Environmental and seasonal allergies Major depressive disorder with single episode, in remission (HCC) ([facility]) MARY (generalized anxiety disorder) ([facility]) Generalized anxiety disorder Seizures ([facility]) Other convulsions Mixed hyperlipidemia ([facility]) Mixed hyperlipidemia Gastroesophageal reflux disease, unspecified whether esophagitis present Hypothyroidism (acquired) ([facility]) Unspecified hypothyroidism Osteoporosis, unspecified osteoporosis type, unspecified pathological fracture presence ([facility]) Tobacco user Tobacco use disorder Obesity with body mass index (BMI) of 30.0 to 39.9 Age-related osteoporosis without current pathological fracture ([facility])- Primary Obesity with body mass index (BMI) of 30.0 to 39.9 Tobacco user Tobacco use disorder MARY (generalized anxiety disorder) ([facility])- Primary Generalized anxiety disorder Simple chronic bronchitis ([facility]/HCC) Simple chronic bronchitis Seizures ([facility]) Other convulsions Gastroesophageal reflux disease, unspecified whether esophagitis present Osteoporosis, unspecified osteoporosis type, unspecified pathological fracture presence ([facility]) Hypothyroidism (acquired) ([facility] Unspecified hypothyroidism Anxiety and depression ([facility]) Rheumatoid arthritis, involving unspecified site, unspecified whether rheumatoid factor present ([facility]) Tobacco user Tobacco use disorder Migraine without status migrainosus, not intractable, unspecified migraine type ([facility]) Major depressive disorder with single episode, in remission (HCC) ([facility] Mixed hyperlipidemia ([facility]) Mixed hyperlipidemia Vitamin D deficiency Environmental and seasonal allergies Hypomagnesemia Disorders of magnesium metabolism Osteoarthritis of spine with radiculopathy, lumbosacral region Hypothyroidism (acquired) ([facility])- Primary Unspecified hypothyroidism Nonintractable epilepsy without status epilepticus, unspecified epilepsy type ([facility]) Seizures ([facility]) Other convulsions Osteoporosis, unspecified osteoporosis type, unspecified pathological fracture presence ([facility]) Depression with anxiety Dysthymic disorder MARY (generalized anxiety disorder) ([facility]) Generalized anxiety disorder Rheumatoid arthritis, involving unspecified site, unspecified whether rheumatoid factor present ([facility]) Tobacco user Tobacco use disorder Abnormal weight gain Obesity with body mass index (BMI) of 30.0 to 39.9 Abnormal weight gain- Primary Tobacco user Tobacco use disorder MARY (generalized anxiety disorder) ([facility]) Generalized anxiety disorder Obesity with body mass index (BMI) of 30.0 to 39.9 Constipation, unspecified constipation type Anxiety and depression ([facility])- Primary Abnormal weight gain Tobacco user Tobacco use disorder Osteoporosis, unspecified osteoporosis type, unspecified pathological fracture presence ([facility] Mixed hyperlipidemia ([facility]) Mixed hyperlipidemia Vitamin D deficiency Environmental and seasonal allergies Hypothyroidism (acquired) ([facility]) Unspecified hypothyroidism Hypomagnesemia Disorders of magnesium metabolism Gastroesophageal reflux disease, unspecified whether esophagitis present MARY (generalized anxiety disorder) ([facility]) Generalized anxiety disorder Major depressive disorder with single episode, in remission (HCC) ([facility]) Seizures ([facility]) Other convulsions Simple chronic bronchitis ([facility]) Simple chronic bronchitis Chronic obstructive pulmonary disease, unspecified COPD type ([facility] Depression with anxiety Dysthymic disorder Hypothyroidism (acquired) ([facility])- Primary Unspecified hypothyroidism Rheumatoid arthritis, unspecified Chronic kidney disease, stage 3a (HCC) ([facility]) Seizures ([facility]) Other convulsions Gastroesophageal reflux disease, unspecified whether esophagitis present Age-related osteoporosis without current pathological fracture ([facility]) Cigarette nicotine dependence without complication MARY (generalized anxiety disorder) ([facility]) Generalized anxiety disorder Hypomagnesemia Disorders of magnesium metabolism Migraine without status migrainosus, not intractable, unspecified migraine type ([facility]) Mild episode of recurrent major depressive disorder (HCC) ([facility]) Mixed hyperlipidemia ([facility]) Mixed hyperlipidemia Osteoporosis, unspecified osteoporosis type, unspecified pathological fracture presence ([facility]/HCC) Major depressive disorder with single episode, in remission (HCC) ([facility]) Vitamin D deficiency Environmental and seasonal allergies Anxiety and depression ([facility]/HCC[facility] Simple chronic bronchitis ([facility]) Simple chronic bronchitis Insomnia, unspecified type Hematemesis, unspecified whether nausea present- Primary Gastroesophageal reflux disease, unspecified whether esophagitis present Rheumatoid arthritis with positive rheumatoid factor, involving unspecified site ([facility]) Cigarette nicotine dependence without complication Encounter for screening mammogram for malignant neoplasm of breast Diarrhea, unspecified type Multiple thyroid nodules ([facility]) Nontoxic multinodular goiter Obesity with body mass index (BMI) of 30.0 to 39.9 documented in this encounter [facility]* Diagnosis Anxiety and depression ([facility])- Primary Seizures ([facility]) Other convulsions Primary insomnia Persistent disorder of initiating or maintaining sleep Thyroid nodule ([facility]) Nontoxic uninodular goiter Hypothyroidism (acquired) ([facility]) Unspecified hypothyroidism Major depressive disorder with single episode, in remission (HCC) ([facility]) Mixed hyperlipidemia ([facility]) Mixed hyperlipidemia Anxiety Anxiety state, unspecified Vitamin D deficiency Environmental and seasonal allergies Gastroesophageal reflux disease, unspecified whether esophagitis present MARY (generalized anxiety disorder) ([facility]) Generalized anxiety disorder Simple chronic bronchitis ([facility]) Simple chronic bronchitis Anxiety and depression ([facility])- Primary Simple chronic bronchitis ([facility]) Simple chronic bronchitis Anxiety Anxiety state, unspecified Vitamin D deficiency Environmental and seasonal allergies Major depressive disorder with single episode, in remission (HCC) ([facility]) MARY (generalized anxiety disorder) ([facility]) Generalized anxiety disorder Seizures ([facility]) Other convulsions Mixed hyperlipidemia ([facility]) Mixed hyperlipidemia Gastroesophageal reflux disease, unspecified whether esophagitis present Hypothyroidism (acquired) ([facility]) Unspecified hypothyroidism Osteoporosis, unspecified osteoporosis type, unspecified pathological fracture presence ([facility]) Tobacco user Tobacco use disorder Obesity with body mass index (BMI) of 30.0 to 39.9 Age-related osteoporosis without current pathological fracture ([facility])- Primary Obesity with body mass index (BMI) of 30.0 to 39.9 Tobacco user Tobacco use disorder MARY (generalized anxiety disorder) ([facility])- Primary Generalized anxiety disorder Simple chronic bronchitis ([facility]/HCC) Simple chronic bronchitis Seizures ([facility]) Other convulsions Gastroesophageal reflux disease, unspecified whether esophagitis present Osteoporosis, unspecified osteoporosis type, unspecified pathological fracture presence ([facility]) Hypothyroidism (acquired) ([facility] Unspecified hypothyroidism Anxiety and depression ([facility]) Rheumatoid arthritis, involving unspecified site, unspecified whether rheumatoid factor present ([facility]) Tobacco user Tobacco use disorder Migraine without status migrainosus, not intractable, unspecified migraine type ([facility]) Major depressive disorder with single episode, in remission (HCC) ([facility] Mixed hyperlipidemia ([facility]) Mixed hyperlipidemia Vitamin D deficiency Environmental and seasonal allergies Hypomagnesemia Disorders of magnesium metabolism Osteoarthritis of spine with radiculopathy, lumbosacral region Hypothyroidism (acquired) ([facility])- Primary Unspecified hypothyroidism Nonintractable epilepsy without status epilepticus, unspecified epilepsy type ([facility]) Seizures ([facility]) Other convulsions Osteoporosis, unspecified osteoporosis type, unspecified pathological fracture presence ([facility] Depression with anxiety Dysthymic disorder MARY (generalized anxiety disorder) ([facility]) Generalized anxiety disorder Rheumatoid arthritis, involving unspecified site, unspecified whether rheumatoid factor present ([facility]) Tobacco user Tobacco use disorder Abnormal weight gain Obesity with body mass index (BMI) of 30.0 to 39.9 Abnormal weight gain- Primary Tobacco user Tobacco use disorder MARY (generalized anxiety disorder) ([facility]) Generalized anxiety disorder Obesity with body mass index (BMI) of 30.0 to 39.9 Constipation, unspecified constipation type Anxiety and depression ([facility])- Primary Abnormal weight gain Tobacco user Tobacco use disorder Osteoporosis, unspecified osteoporosis type, unspecified pathological fracture presence ([facility] Mixed hyperlipidemia ([facility]) Mixed hyperlipidemia Vitamin D deficiency Environmental and seasonal allergies Hypothyroidism (acquired) ([facility]) Unspecified hypothyroidism Hypomagnesemia Disorders of magnesium metabolism Gastroesophageal reflux disease, unspecified whether esophagitis present MARY (generalized anxiety disorder) ([facility]) Generalized anxiety disorder Major depressive disorder with single episode, in remission (HCC) ([facility]) Seizures ([facility]) Other convulsions Simple chronic bronchitis ([facility]) Simple chronic bronchitis Chronic obstructive pulmonary disease, unspecified COPD type ([facility]) Depression with anxiety Dysthymic disorder Hypothyroidism (acquired) ([facility])- Primary Unspecified hypothyroidism Rheumatoid arthritis, unspecified Chronic kidney disease, stage 3a (HCC) ([facility]) Seizures (CMS/HCC) Other convulsions Gastroesophageal reflux disease, unspecified whether esophagitis present Age-related osteoporosis without current pathological fracture ([facility]/HCC) Cigarette nicotine dependence without complication MARY (generalized anxiety disorder) ([facility]/HCC) Generalized anxiety disorder Hypomagnesemia Disorders of magnesium metabolism Migraine without status migrainosus, not intractable, unspecified migraine type ([facility]/HCC) Mild episode of recurrent major depressive disorder (HCC) ([facility]/HCC) Mixed hyperlipidemia ([facility]/HCC) Mixed hyperlipidemia Osteoporosis, unspecified osteoporosis type, unspecified pathological fracture presence ([facility]/HCC) Major depressive disorder with single episode, in remission (HCC) ([facility]/HCC) Vitamin D deficiency Environmental and seasonal allergies Anxiety and depression ([facility]/HCC) Simple chronic bronchitis ([facility]) Simple chronic bronchitis Insomnia, unspecified type Hematemesis, unspecified whether nausea present- Primary Gastroesophageal reflux disease, unspecified whether esophagitis present Rheumatoid arthritis with positive rheumatoid factor, involving unspecified site ([facility]) Cigarette nicotine dependence without complication Encounter for screening mammogram for malignant neoplasm of breast Diarrhea, unspecified type Multiple thyroid nodules ([facility]) Nontoxic multinodular goiter Obesity with body mass index (BMI) of 30.0 to 39.9 UTI (urinary tract infection), uncomplicated- Primary Urinary tract infection, site not specified documented in this encounter [facility] HealthcareEvaluation noteNo assessment information availableC[facility] Work Phone: Evaluation note* Diagnosis Anxiety and depression- Primary Seizures (HCC) Other convulsions Primary insomnia Persistent disorder of initiating or maintaining sleep Thyroid nodule Nontoxic uninodular goiter Hypothyroidism (acquired) Unspecified hypothyroidism Major depressive disorder with single episode, in remission Mixed hyperlipidemia Mixed hyperlipidemia Anxiety Anxiety state, unspecified Vitamin D deficiency Environmental and seasonal allergies Gastroesophageal reflux disease, unspecified whether esophagitis present MARY (generalized anxiety disorder) Generalized anxiety disorder Simple chronic bronchitis (HCC) Simple chronic bronchitis Anxiety and depression- Primary Simple chronic bronchitis (HCC) Simple chronic bronchitis Anxiety Anxiety state, unspecified Vitamin D deficiency Environmental and seasonal allergies Major depressive disorder with single episode, in remission MARY (generalized anxiety disorder) Generalized anxiety disorder Seizures (HCC) Other convulsions Mixed hyperlipidemia Mixed hyperlipidemia Gastroesophageal reflux disease, unspecified whether esophagitis present Hypothyroidism (acquired) Unspecified hypothyroidism Osteoporosis, unspecified osteoporosis type, unspecified pathological fracture presence Tobacco user Tobacco use disorder Obesity with body mass index (BMI) of 30.0 to 39.9 Age-related osteoporosis without current pathological fracture- Primary Obesity with body mass index (BMI) of 30.0 to 39.9 Tobacco user Tobacco use disorder MARY (generalized anxiety disorder)- Primary Generalized anxiety disorder Simple chronic bronchitis (HCC) Simple chronic bronchitis Seizures (HCC) Other convulsions Gastroesophageal reflux disease, unspecified whether esophagitis present Osteoporosis, unspecified osteoporosis type, unspecified pathological fracture presence Hypothyroidism (acquired) Unspecified hypothyroidism Anxiety and depression Rheumatoid arthritis, involving unspecified site, unspecified whether rheumatoid factor present (HCC) Tobacco user Tobacco use disorder Migraine without status migrainosus, not intractable, unspecified migraine type Major depressive disorder with single episode, in remission Mixed hyperlipidemia Mixed hyperlipidemia Vitamin D deficiency Environmental and seasonal allergies Hypomagnesemia Disorders of magnesium metabolism Osteoarthritis of spine with radiculopathy, lumbosacral region Hypothyroidism (acquired)- Primary Unspecified hypothyroidism Nonintractable epilepsy without status epilepticus, unspecified epilepsy type (HCC) Seizures (HCC) Other convulsions Osteoporosis, unspecified osteoporosis type, unspecified pathological fracture presence Depression with anxiety Dysthymic disorder MARY (generalized anxiety disorder) Generalized anxiety disorder Rheumatoid arthritis, involving unspecified site, unspecified whether rheumatoid factor present (HCC) Tobacco user Tobacco use disorder Abnormal weight gain Obesity with body mass index (BMI) of 30.0 to 39.9 Abnormal weight gain- Primary Tobacco user Tobacco use disorder MARY (generalized anxiety disorder) Generalized anxiety disorder Obesity with body mass index (BMI) of 30.0 to 39.9 Constipation, unspecified constipation type Anxiety and depression- Primary Abnormal weight gain Tobacco user Tobacco use disorder Osteoporosis, unspecified osteoporosis type, unspecified pathological fracture presence Mixed hyperlipidemia Mixed hyperlipidemia Vitamin D deficiency Environmental and seasonal allergies Hypothyroidism (acquired) Unspecified hypothyroidism Hypomagnesemia Disorders of magnesium metabolism Gastroesophageal reflux disease, unspecified whether esophagitis present MARY (generalized anxiety disorder) Generalized anxiety disorder Major depressive disorder with single episode, in remission Seizures (HCC) Other convulsions Simple chronic bronchitis (HCC) Simple chronic bronchitis Chronic obstructive pulmonary disease, unspecified COPD type (HCC) Depression with anxiety Dysthymic disorder Hypothyroidism (acquired)- Primary Unspecified hypothyroidism Rheumatoid arthritis, unspecified (HCC) Chronic kidney disease, stage 3a ([facility]) Seizures (HCC) Other convulsions Gastroesophageal reflux disease, unspecified whether esophagitis present Age-related osteoporosis without current pathological fracture Cigarette nicotine dependence without complication MARY (generalized anxiety disorder) Generalized anxiety disorder Hypomagnesemia Disorders of magnesium metabolism Migraine without status migrainosus, not intractable, unspecified migraine type Mild episode of recurrent major depressive disorder Mixed hyperlipidemia Mixed hyperlipidemia Osteoporosis, unspecified osteoporosis type, unspecified pathological fracture presence Major depressive disorder with single episode, in remission Vitamin D deficiency Environmental and seasonal allergies Anxiety and depression Simple chronic bronchitis (HCC) Simple chronic bronchitis Insomnia, unspecified type Hematemesis, unspecified whether nausea present- Primary Gastroesophageal reflux disease, unspecified whether esophagitis present Rheumatoid arthritis with positive rheumatoid factor, involving unspecified site (HCC) Cigarette nicotine dependence without complication Encounter for screening mammogram for malignant neoplasm of breast Diarrhea, unspecified type Multiple thyroid nodules Nontoxic multinodular goiter Obesity with body mass index (BMI) of 30.0 to 39.9 Gastroesophageal reflux disease, unspecified whether esophagitis present documented in this encounter [facility] HealthcareEvaluation note* Diagnosis Anxiety and depression- Primary Seizures (HCC) Other convulsions Primary insomnia Persistent disorder of initiating or maintaining sleep Thyroid nodule Nontoxic uninodular goiter Hypothyroidism (acquired) Unspecified hypothyroidism Major depressive disorder with single episode, in remission Mixed hyperlipidemia Mixed hyperlipidemia Anxiety Anxiety state, unspecified Vitamin D deficiency Environmental and seasonal allergies Gastroesophageal reflux disease, unspecified whether esophagitis present MARY (generalized anxiety disorder) Generalized anxiety disorder Simple chronic bronchitis (HCC) Simple chronic bronchitis Anxiety and depression- Primary Simple chronic bronchitis (HCC) Simple chronic bronchitis Anxiety Anxiety state, unspecified Vitamin D deficiency Environmental and seasonal allergies Major depressive disorder with single episode, in remission MARY (generalized anxiety disorder) Generalized anxiety disorder Seizures (HCC) Other convulsions Mixed hyperlipidemia Mixed hyperlipidemia Gastroesophageal reflux disease, unspecified whether esophagitis present Hypothyroidism (acquired) Unspecified hypothyroidism Osteoporosis, unspecified osteoporosis type, unspecified pathological fracture presence Tobacco user Tobacco use disorder Obesity with body mass index (BMI) of 30.0 to 39.9 Age-related osteoporosis without current pathological fracture- Primary Obesity with body mass index (BMI) of 30.0 to 39.9 Tobacco user Tobacco use disorder MARY (generalized anxiety disorder)- Primary Generalized anxiety disorder Simple chronic bronchitis (HCC) Simple chronic bronchitis Seizures (HCC) Other convulsions Gastroesophageal reflux disease, unspecified whether esophagitis present Osteoporosis, unspecified osteoporosis type, unspecified pathological fracture presence Hypothyroidism (acquired) Unspecified hypothyroidism Anxiety and depression Rheumatoid arthritis, involving unspecified site, unspecified whether rheumatoid factor present (HCC) Tobacco user Tobacco use disorder Migraine without status migrainosus, not intractable, unspecified migraine type Major depressive disorder with single episode, in remission Mixed hyperlipidemia Mixed hyperlipidemia Vitamin D deficiency Environmental and seasonal allergies Hypomagnesemia Disorders of magnesium metabolism Osteoarthritis of spine with radiculopathy, lumbosacral region Hypothyroidism (acquired)- Primary Unspecified hypothyroidism Nonintractable epilepsy without status epilepticus, unspecified epilepsy type (HCC) Seizures (HCC) Other convulsions Osteoporosis, unspecified osteoporosis type, unspecified pathological fracture presence Depression with anxiety Dysthymic disorder MARY (generalized anxiety disorder) Generalized anxiety disorder Rheumatoid arthritis, involving unspecified site, unspecified whether rheumatoid factor present (HCC) Tobacco user Tobacco use disorder Abnormal weight gain Obesity with body mass index (BMI) of 30.0 to 39.9 Abnormal weight gain- Primary Tobacco user Tobacco use disorder MARY (generalized anxiety disorder) Generalized anxiety disorder Obesity with body mass index (BMI) of 30.0 to 39.9 Constipation, unspecified constipation type Anxiety and depression- Primary Abnormal weight gain Tobacco user Tobacco use disorder Osteoporosis, unspecified osteoporosis type, unspecified pathological fracture presence Mixed hyperlipidemia Mixed hyperlipidemia Vitamin D deficiency Environmental and seasonal allergies Hypothyroidism (acquired) Unspecified hypothyroidism Hypomagnesemia Disorders of magnesium metabolism Gastroesophageal reflux disease, unspecified whether esophagitis present MARY (generalized anxiety disorder) Generalized anxiety disorder Major depressive disorder with single episode, in remission Seizures (HCC) Other convulsions Simple chronic bronchitis (HCC) Simple chronic bronchitis Chronic obstructive pulmonary disease, unspecified COPD type ([facility]) Depression with anxiety Dysthymic disorder Hypothyroidism (acquired)- Primary Unspecified hypothyroidism Rheumatoid arthritis, unspecified ([facility]) Chronic kidney disease, stage 3a ([facility]) Seizures (HCC) Other convulsions Gastroesophageal reflux disease, unspecified whether esophagitis present Age-related osteoporosis without current pathological fracture Cigarette nicotine dependence without complication MARY (generalized anxiety disorder) Generalized anxiety disorder Hypomagnesemia Disorders of magnesium metabolism Migraine without status migrainosus, not intractable, unspecified migraine type Mild episode of recurrent major depressive disorder Mixed hyperlipidemia Mixed hyperlipidemia Osteoporosis, unspecified osteoporosis type, unspecified pathological fracture presence Major depressive disorder with single episode, in remission Vitamin D deficiency Environmental and seasonal allergies Anxiety and depression Simple chronic bronchitis (HCC) Simple chronic bronchitis Insomnia, unspecified type Hematemesis, unspecified whether nausea present- Primary Gastroesophageal reflux disease, unspecified whether esophagitis present Rheumatoid arthritis with positive rheumatoid factor, involving unspecified site ([facility]) Cigarette nicotine dependence without complication Encounter for screening mammogram for malignant neoplasm of breast Diarrhea, unspecified type Multiple thyroid nodules Nontoxic multinodular goiter Obesity with body mass index (BMI) of 30.0 to 39.9 Hematemesis, unspecified whether nausea present- Primary Gastroesophageal reflux disease, unspecified whether esophagitis present Obesity with body mass index (BMI) of 30.0 to 39.9 Cigarette nicotine dependence without complication Rheumatoid arthritis with positive rheumatoid factor, involving unspecified site (HCC) documented in this encounter [facility] HealthcareEvaluation note* Diagnosis Anxiety and depression- Primary Seizures (HCC) Other convulsions Primary insomnia Persistent disorder of initiating or maintaining sleep Thyroid nodule Nontoxic uninodular goiter Hypothyroidism (acquired) Unspecified hypothyroidism Major depressive disorder with single episode, in remission Mixed hyperlipidemia Mixed hyperlipidemia Anxiety Anxiety state, unspecified Vitamin D deficiency Environmental and seasonal allergies Gastroesophageal reflux disease, unspecified whether esophagitis present MARY (generalized anxiety disorder) Generalized anxiety disorder Simple chronic bronchitis (HCC) Simple chronic bronchitis Anxiety and depression- Primary Simple chronic bronchitis (HCC) Simple chronic bronchitis Anxiety Anxiety state, unspecified Vitamin D deficiency Environmental and seasonal allergies Major depressive disorder with single episode, in remission MARY (generalized anxiety disorder) Generalized anxiety disorder Seizures (HCC) Other convulsions Mixed hyperlipidemia Mixed hyperlipidemia Gastroesophageal reflux disease, unspecified whether esophagitis present Hypothyroidism (acquired) Unspecified hypothyroidism Osteoporosis, unspecified osteoporosis type, unspecified pathological fracture presence Tobacco user Tobacco use disorder Obesity with body mass index (BMI) of 30.0 to 39.9 Age-related osteoporosis without current pathological fracture- Primary Obesity with body mass index (BMI) of 30.0 to 39.9 Tobacco user Tobacco use disorder MARY (generalized anxiety disorder)- Primary Generalized anxiety disorder Simple chronic bronchitis (HCC) Simple chronic bronchitis Seizures (HCC) Other convulsions Gastroesophageal reflux disease, unspecified whether esophagitis present Osteoporosis, unspecified osteoporosis type, unspecified pathological fracture presence Hypothyroidism (acquired) Unspecified hypothyroidism Anxiety and depression Rheumatoid arthritis, involving unspecified site, unspecified whether rheumatoid factor present (HCC) Tobacco user Tobacco use disorder Migraine without status migrainosus, not intractable, unspecified migraine type Major depressive disorder with single episode, in remission Mixed hyperlipidemia Mixed hyperlipidemia Vitamin D deficiency Environmental and seasonal allergies Hypomagnesemia Disorders of magnesium metabolism Osteoarthritis of spine with radiculopathy, lumbosacral region Hypothyroidism (acquired)- Primary Unspecified hypothyroidism Nonintractable epilepsy without status epilepticus, unspecified epilepsy type (HCC) Seizures (HCC) Other convulsions Osteoporosis, unspecified osteoporosis type, unspecified pathological fracture presence Depression with anxiety Dysthymic disorder MARY (generalized anxiety disorder) Generalized anxiety disorder Rheumatoid arthritis, involving unspecified site, unspecified whether rheumatoid factor present (HCC) Tobacco user Tobacco use disorder Abnormal weight gain Obesity with body mass index (BMI) of 30.0 to 39.9 Abnormal weight gain- Primary Tobacco user Tobacco use disorder MARY (generalized anxiety disorder) Generalized anxiety disorder Obesity with body mass index (BMI) of 30.0 to 39.9 Constipation, unspecified constipation type Anxiety and depression- Primary Abnormal weight gain Tobacco user Tobacco use disorder Osteoporosis, unspecified osteoporosis type, unspecified pathological fracture presence Mixed hyperlipidemia Mixed hyperlipidemia Vitamin D deficiency Environmental and seasonal allergies Hypothyroidism (acquired) Unspecified hypothyroidism Hypomagnesemia Disorders of magnesium metabolism Gastroesophageal reflux disease, unspecified whether esophagitis present MARY (generalized anxiety disorder) Generalized anxiety disorder Major depressive disorder with single episode, in remission Seizures (HCC) Other convulsions Simple chronic bronchitis (HCC) Simple chronic bronchitis Chronic obstructive pulmonary disease, unspecified COPD type ([facility]) Depression with anxiety Dysthymic disorder Hypothyroidism (acquired)- Primary Unspecified hypothyroidism Rheumatoid arthritis, unspecified ([facility]) Chronic kidney disease, stage 3a ([facility]) Seizures (HCC) Other convulsions Gastroesophageal reflux disease, unspecified whether esophagitis present Age-related osteoporosis without current pathological fracture Cigarette nicotine dependence without complication MARY (generalized anxiety disorder) Generalized anxiety disorder Hypomagnesemia Disorders of magnesium metabolism Migraine without status migrainosus, not intractable, unspecified migraine type Mild episode of recurrent major depressive disorder Mixed hyperlipidemia Mixed hyperlipidemia Osteoporosis, unspecified osteoporosis type, unspecified pathological fracture presence Major depressive disorder with single episode, in remission Vitamin D deficiency Environmental and seasonal allergies Anxiety and depression Simple chronic bronchitis (HCC) Simple chronic bronchitis Insomnia, unspecified type Hematemesis, unspecified whether nausea present- Primary Gastroesophageal reflux disease, unspecified whether esophagitis present Rheumatoid arthritis with positive rheumatoid factor, involving unspecified site (HCC) Cigarette nicotine dependence without complication Encounter for screening mammogram for malignant neoplasm of breast Diarrhea, unspecified type Multiple thyroid nodules Nontoxic multinodular goiter Obesity with body mass index (BMI) of 30.0 to 39.9 Hematemesis, unspecified whether nausea present- Primary Gastroesophageal reflux disease, unspecified whether esophagitis present Obesity with body mass index (BMI) of 30.0 to 39.9 Cigarette nicotine dependence without complication Rheumatoid arthritis with positive rheumatoid factor, involving unspecified site (HCC) Rheumatoid arthritis with positive rheumatoid factor, involving unspecified site (HCC)- Primary documented in this encounter [facility]Evaluation note* Diagnosis Anxiety and depression- Primary Seizures (HCC) Other convulsions Primary insomnia Persistent disorder of initiating or maintaining sleep Thyroid nodule Nontoxic uninodular goiter Hypothyroidism (acquired) Unspecified hypothyroidism Major depressive disorder with single episode, in remission Mixed hyperlipidemia Mixed hyperlipidemia Anxiety Anxiety state, unspecified Vitamin D deficiency Environmental and seasonal allergies Gastroesophageal reflux disease, unspecified whether esophagitis present MARY (generalized anxiety disorder) Generalized anxiety disorder Simple chronic bronchitis (HCC) Simple chronic bronchitis Anxiety and depression- Primary Simple chronic bronchitis (HCC) Simple chronic bronchitis Anxiety Anxiety state, unspecified Vitamin D deficiency Environmental and seasonal allergies Major depressive disorder with single episode, in remission MARY (generalized anxiety disorder) Generalized anxiety disorder Seizures (HCC) Other convulsions Mixed hyperlipidemia Mixed hyperlipidemia Gastroesophageal reflux disease, unspecified whether esophagitis present Hypothyroidism (acquired) Unspecified hypothyroidism Osteoporosis, unspecified osteoporosis type, unspecified pathological fracture presence Tobacco user Tobacco use disorder Obesity with body mass index (BMI) of 30.0 to 39.9 Age-related osteoporosis without current pathological fracture- Primary Obesity with body mass index (BMI) of 30.0 to 39.9 Tobacco user Tobacco use disorder MARY (generalized anxiety disorder)- Primary Generalized anxiety disorder Simple chronic bronchitis (HCC) Simple chronic bronchitis Seizures (HCC) Other convulsions Gastroesophageal reflux disease, unspecified whether esophagitis present Osteoporosis, unspecified osteoporosis type, unspecified pathological fracture presence Hypothyroidism (acquired) Unspecified hypothyroidism Anxiety and depression Rheumatoid arthritis, involving unspecified site, unspecified whether rheumatoid factor present (HCC) Tobacco user Tobacco use disorder Migraine without status migrainosus, not intractable, unspecified migraine type Major depressive disorder with single episode, in remission Mixed hyperlipidemia Mixed hyperlipidemia Vitamin D deficiency Environmental and seasonal allergies Hypomagnesemia Disorders of magnesium metabolism Osteoarthritis of spine with radiculopathy, lumbosacral region Hypothyroidism (acquired)- Primary Unspecified hypothyroidism Nonintractable epilepsy without status epilepticus, unspecified epilepsy type (HCC) Seizures (HCC) Other convulsions Osteoporosis, unspecified osteoporosis type, unspecified pathological fracture presence Depression with anxiety Dysthymic disorder MARY (generalized anxiety disorder) Generalized anxiety disorder Rheumatoid arthritis, involving unspecified site, unspecified whether rheumatoid factor present (HCC) Tobacco user Tobacco use disorder Abnormal weight gain Obesity with body mass index (BMI) of 30.0 to 39.9 Abnormal weight gain- Primary Tobacco user Tobacco use disorder MARY (generalized anxiety disorder) Generalized anxiety disorder Obesity with body mass index (BMI) of 30.0 to 39.9 Constipation, unspecified constipation type Anxiety and depression- Primary Abnormal weight gain Tobacco user Tobacco use disorder Osteoporosis, unspecified osteoporosis type, unspecified pathological fracture presence Mixed hyperlipidemia Mixed hyperlipidemia Vitamin D deficiency Environmental and seasonal allergies Hypothyroidism (acquired) Unspecified hypothyroidism Hypomagnesemia Disorders of magnesium metabolism Gastroesophageal reflux disease, unspecified whether esophagitis present MARY (generalized anxiety disorder) Generalized anxiety disorder Major depressive disorder with single episode, in remission Seizures (HCC) Other convulsions Simple chronic bronchitis (HCC) Simple chronic bronchitis Chronic obstructive pulmonary disease, unspecified COPD type (HCC) Depression with anxiety Dysthymic disorder Hypothyroidism (acquired)- Primary Unspecified hypothyroidism Rheumatoid arthritis, unspecified (HCC) Chronic kidney disease, stage 3a ([facility]-HCC) Seizures (HCC) Other convulsions Gastroesophageal reflux disease, unspecified whether esophagitis present Age-related osteoporosis without current pathological fracture Cigarette nicotine dependence without complication MARY (generalized anxiety disorder) Generalized anxiety disorder Hypomagnesemia Disorders of magnesium metabolism Migraine without status migrainosus, not intractable, unspecified migraine type Mild episode of recurrent major depressive disorder Mixed hyperlipidemia Mixed hyperlipidemia Osteoporosis, unspecified osteoporosis type, unspecified pathological fracture presence Major depressive disorder with single episode, in remission Vitamin D deficiency Environmental and seasonal allergies Anxiety and depression Simple chronic bronchitis (HCC) Simple chronic bronchitis Insomnia, unspecified type Hematemesis, unspecified whether nausea present- Primary Gastroesophageal reflux disease, unspecified whether esophagitis present Rheumatoid arthritis with positive rheumatoid factor, involving unspecified site (HCC) Cigarette nicotine dependence without complication Encounter for screening mammogram for malignant neoplasm of breast Diarrhea, unspecified type Multiple thyroid nodules Nontoxic multinodular goiter Obesity with body mass index (BMI) of 30.0 to 39.9 Hematemesis, unspecified whether nausea present- Primary Gastroesophageal reflux disease, unspecified whether esophagitis present Obesity with body mass index (BMI) of 30.0 to 39.9 Cigarette nicotine dependence without complication Rheumatoid arthritis with positive rheumatoid factor, involving unspecified site (HCC) Osteoarthritis of spine with radiculopathy, lumbosacral region- Primary Seizures (HCC) Other convulsions THOMAS (obstructive sleep apnea) Obstructive sleep apnea (adult) (pediatric) Gastroesophageal reflux disease, unspecified whether esophagitis present Hematemesis, unspecified whether nausea present Cigarette nicotine dependence without complication MARY (generalized anxiety disorder) Generalized anxiety disorder Mild episode of recurrent major depressive disorder Polyp of colon, unspecified part of colon, unspecified type Major depressive disorder with single episode, in remission Constipation, unspecified constipation type Weight loss Loss of weight Rheumatoid arthritis with positive rheumatoid factor, involving unspecified site (HCC) documented in this encounter [facility]Evaluation note* Diagnosis Onset Date Resolution Status Admit Date Acquired hypothyroidism acuteSept2024 1:50pmCigarette nicotine dependenceacuteSept2024 1:50pmGAD (generalized anxiety disorder)acuteSept2024 1:50pmGERD without esophagitisacuteSeptember 2024 1:50pmLumbar back pain with radiculopathy affecting lower extremityacuteSept2024 1:50pmMild episode of recurrent major depressive disorderacuteSept2024 1:50pm Obesity with body mass index of 30.0-39.9acuteSeptember 2024 1:50pm Rheumatoid arthritisacuteSept2024 1:50pm [facility] Work Phone: Hospital course Narrative No data available for this section [facility] Discharge instructions No data available for this section [facility] InstructionsNot on filedocumented in this encounter [facility] filedocumented in this encounter [facility] on filedocumented in this encounter [facility]Not on filedocumented in this encounter [facility]Not on filedocumented in this encounter [facility]ructionsNot on filedocumented in this encounter [facility] SystemInstructionsNot on filedocumented in this encounter [facility] SystemProgress note No data available for this section [facility] Reason for referral (narrative)No reason for referral information availableUniversity [facility]als [facility] Work Phone: Advance Directives TypeDate RecordedPatient RepresentativeExplanationACP-Advance DirectiveACP-Power of AttorneyCode StatusDate ActivatedDate InactivatedCommentsFull Code06/14/2021 9:04 PMNameRelationshipHealthcare Agent RelationshipCommunicationNatacha Carrero [facility] Decision [facility]* Code StatusDate ActivatedDate InactivatedCommentsFull Code06/14/2021 9:04 PM 06/18/2021 4:14 PMNameRelationshipHealthcare Agent RelationshipCommunication Natacha CarreroHenry [facility] Facilityry Decision Maker* Code StatusDate ActivatedDate InactivatedCommentsFull Code05/24/2022 12:20 PM Full Code05/24/2022 12:20 05/24/2022 12:20 PMFull Code06/14/2021 9:04 PM 06/18/2021 4:14 PMNameRelationshipHealthcare Agent RelationshipCommunication [facility] Decision Maker* Advance Directive Response Recorded Date/ Time Advance Directives No March 7:02am Summary Purpose Family History No Family History Records FoundNo Family History Records FoundNo Family History Records FoundNo Family History Records FoundNo Family History Records FoundNo Family History Records Found No data available for this section No Family History Records Found No data available for this section No data available for this section No Family History Records FoundNo Family History Records Found No data available for this section No Family History Records Found No data available for this section No Family History Records FoundNo Family History Records Found Reason for Referral SpecialtyDiagnoses / ProceduresReferred By ContactReferred To ContactOral Surgery Diagnoses 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 All self-pay payments [...] the procedure: You also MUST have a route driver coin machines/escort >18yrs old present to take you home after. If your provider has proposed an IV sedation procedure: Please refer to the instructions given to you at your consult appointment. You will receive a call from a nurse roughly 1 week prior to your procedure to go over any/all instructions. QuestionAnswer What is the procedure for? Dental Please specify: Extractions Please specify: Routine Extraction Routine Extraction--please list tooth number(s): 17, 32 Is Sedation Needed? Local Anesthesia Procedure Length: 60 Which area is this procedure for? Clinic SpecialtyDiagnoses / ProceduresReferred By ContactReferred To Contact Diagnoses DDD (degenerative disc disease), cervical Cristian Szymanski MD [address] [address] Referral IDStatusReasonStart DateExpiration DateVisits RequestedVisits [id number] / ProceduresReferred By Contact Referred To ContactRehabilitation Diagnoses DDD (degenerative disc disease), cervical Cristian Szymanski MD [address] [address] [facility] [address] [place] [address] Referral IDStatusReasonStart DateExpiration DateVisits RequestedVisits [id number] Specialty Services Required 212 Chief Complaint and Reason for Visit Chief Complaint Admit Date 2M April 28, 2025 1:50pm Reason for Visit Admit Date Acquired hypothyroidism April 28, 2025 1:50pm Cigarette nicotine dependence April 28, 2025 1:50pm MARY (generalized anxiety disorder) Dale jonathaner 2024 1:50pm GERD without esophagitis April 28, 2025 1:50pm Lumbar back pain with radicu lopathy affecting lower extremity April 28, 2025 1:50pm Mild episode of recurrent major depressi ve disorder April 28, 2025 1:50pm Obesity with body mass index of 30.0-39. 9 April 28, 2025 1:50pm Rheumatoid arthritis April 28 1:50pm Additional Source Comments Reason for Visit (unrecogniz ed section and content) ReasonCommentsEmesispt states onset pecialtyDiagnoses / Procedures Referred By ContactReferred To Contact Diagnoses Dehydration Pneumonia of right lower lobe due to infectious organism Intractable vomiting with nausea, unspecified vomiting type COVID COVID-19 virus infection Benito Oneal MD [address] [place] [address], [place] [address] [facility] Referral IDStatusReasonStart DateExpiration DateVisits RequestedVisits [id number] reports seizure activity [employer], 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 Pt arrives alert and oriented, pt denies head/neck pain, pt denies blood thinnersAnkle PainLeft ankle/foot from fall during seizure like activity. SpecialtyDiagnoses / ProceduresReferred By ContactReferred To Contact Diagnoses Multiple fractures of foot, left, closed, initial encounter Ankle fracture, bimalleolar, closed, left, initial encounter L Mid foot fx, Seizures Dhruv Carrillo MD [address] [facility] [address] [place] [address] [facility] [address] [place] [address] Referral IDStatusReasonSteileen DateExpiration DateVisits RequestedVisits [id number] patient, to establish relationship SpecialtyDiagnoses / ProceduresReferred By ContactReferred To ContactOral Surgery Diagnoses Dental caries Florentino Cloud, DDS [address] [place] [address] [facility] ORAL SURGERY [address] [place] [address] Referral IDStatusLoraasonStart DateExpiration DateVisits RequestedVisits [id number] RefillReason CommentsHypothyroidismReasonOnset DateCommentsMed Krdkub0203/26/2024easonComments Med Change RequestReasonOnset DateCommentsMed Hmkmlf7003/20/2024easonOnset Date CommentsMed Eeemii9509/16/2024ReasonCommentsFollow-up Ordered Prescriptions (unrec ognized section and content) PrescriptionSigDispensedRefillsStart DateEnd Date vitamin D3 (CHOLECALCIFEROL) 25 MCG (1000 UT) TABS tablet Take 1 tablet by mouth daily 30 tablet zinc sulfate (ZINCATE) 220 (50 Zn) MG capsule Take 2 capsules by mouth daily 30 capsule rescriptionSigDispensedRefillsStart DateEnd Date acyclovir (ZOVIRAX) 800 MG tablet Take 1 tablet by mouth 5 times daily for 10 days 50 tablet /12/2021 HYDROcodone-acetaminophen (NORCO) 5-325 MG per tablet Indications:Multiple fractures of foot, left, closed, initial encounterTake 1 tablet by mouth every 8 hours as needed for Pain for up to 7 days. Intended supply: 7 days. Take lowest dose possible to manage pain 21 tablet Scheduled Active and Recently Administ ered Medications (unrecognized section and content) Medication Order// ascorbic acid (VITAMIN C) tablet 2,000 mg 2,000 mg, Oral, 2 TIMES DAILY, First dose on Mon06/14/21 at 2130 * 1003 (Not Given - Provider: Elba Roe RN - Reason: Other - Comment: Patient not following commands well enough to take multiple PO meds at this time) * 2036 (Given - Provider: Zoey Ramirez, DONAL) * 0945 (Given - Provider: Dipika Alvarado RN) * 2141 (Given - Provider: Emma Song, RN) * 0841 (Given - Provider: Elba Roe RN) * 2100 (Due) atorvastatin (LIPITOR) tablet 10 mg 10 mg, Oral, DAILY, First dose on Mon06/15/21 at 0900 * 1004 (Not Given - Provider: Elba Roe RN - Reason: Other - Comment: Patient not following commands well enough to take multiple PO meds at this time) * 0945 (Given - Provider: Dipika Alvarado RN) * 0841 (Given - Provider: Elba Roe RN) busPIRone (BUSPAR) tablet 5 mg 5 mg, Oral, 2 TIMES DAILY, First dose on Mon06/14/21 at 2130 * 1004 (Not Given - Provider: Elba Roe RN - Reason: Other - Comment: Patient not following commands well enough to take multiple PO meds at this time) * 2036 (Given - Provider: Zoey Ramirez, DONAL) * 0944 (Given - Provider: Dipika Alvarado RN) * 2141 (Given - Provider: Emma Song, DONAL) * 0841 (Given - Provider: Elba Roe RN) * 2100 (Due) cetirizine (ZYRTEC) tablet 10 mg 10 mg, Oral, DAILY, First dose on Mon06/15/21 at 0900 * 1005 (Not Given - Provider: Elba Roe RN - Reason: Other - Comment: Patient not following commands well enough to take multiple PO meds at this time) * 0945 (Given - Provider: Dipika Alvarado RN) * 0841 (Given - Provider: Elba Roe RN) enoxaparin (LOVENOX) injection 30 mg 30 mg, SubCUTAneous, 2 TIMES DAILY, First dose (after last modification) on Mon06/15/21 at 0900 * 0952 (Given - Provider: Elba Roe RN) * 2037 (Given - Provider: Zoey Ramirez RN) * 0944 (Given - Provider: Dipika Alvarado RN) * 2142 (Given - Provider: Emma Song RN) * 0841 (Given - Provider: Elba Roe RN) * 2100 (Due) fluticasone (FLONASE) 50 MCG/ACT nasal spray 1 spray 1 spray, Each Nostril, DAILY, First dose on Mon06/15/21 at 0900 * 0956 (Given - Provider: Elba Roe RN) * 0953 (Given - Provider: Dipika Alvarado RN) * 0844 (Given - Provider: Elba Roe RN) levothyroxine (SYNTHROID) tablet 25 mcg 25 mcg, Oral, DAILY, First dose on Mon06/15/21 at 0700, Tube feeding (TF) interaction, obtain physician order to manage, recommend holding TF for 30 minutes before and after dose. * 0953 (Given - Provider: Elba Roe RN) * 0708 (Given - Provider: Zoey Ramirez, DONAL) * 0841 (Given - Provider: Elba Roe RN) pantoprazole (PROTONIX) tablet 40 mg 40 mg, Oral, DAILY BEFORE BREAKFAST, First dose on Mon06/15/21 at 0700, Do not crush or break. Substituted for Omeprazole (PRILOSEC). * 1005 (Not Given - Provider: Elba Roe RN - Reason: Other - Comment: Patient not following commands well enough to take multiple PO meds at this time) * 0708 (Given - Provider: Zoey Ramirez, DONAL) * 0841 (Given - Provider: Elba Roe RN) potassium chloride 60 mEq in dextrose 5 % 600 mL IVPB (COMPLETED) IntraVENous, at 100 mL/hr, Administer over 6 Hours, ONCE, On Mon06/16/21 at 1100, For 1 dose * 1100 (New Bag - Provider: Elba Roe RN) * 1243 (Paused - Provider: Elba Roe RN - Comment: paused for MRI) * 1415 (Restarted - Provider: Elba Roe RN) * 2056 (Stopped - Provider: Zoey Ramirez, DONAL) propranolol (INDERAL) tablet 40 mg 40 mg, Oral, 2 TIMES DAILY, First dose on Mon06/14/21 at 2130 * 1005 (Not Given - Provider: Elba Roe RN - Reason: Other - Comment: Patient not following commands well enough to take multiple PO meds at this time) * 2036 (Given - Provider: Zoey Ramirez, RN) * 0945 (Given - Provider: Dipika Alvarado RN) * 2141 (Given - Provider: Emma Song, RN) * 0841 (Given - Provider: Elba Roe RN) * 2100 (Due) sertraline (ZOLOFT) tablet 100 mg 100 mg, Oral, DAILY, First dose on Mon06/15/21 at 0900 * 1005 (Not Given - Provider: Elba Roe RN - Reason: Other - Comment: Patient not following commands well enough to take multiple PO meds at this time) * 0945 (Given - Provider: Dipika Alvarado RN) * 0841 (Given - Provider: Elba Roe RN) [...] Midline or Central Line = 20 mL/lumen * 0957 (Not Given - Provider: Elba Roe RN - Reason: IV Fluid Infusing) * 2148 (Given - Provider: Zoey Ramirez, RN) * 0952 (Given - Provider: Dipika Alvarado, RN) * 2133 (Not Given - Provider: Emma Song RN - Reason: IV Fluid Infusing) * 075 (Not Given - Provider: Elba Roe RN - Reason: IV Fluid Infusing) * 2100 (Due) topiramate (TOPAMAX) tablet 25 mg 25 mg, Oral, 2 TIMES DAILY, First dose on Mon06/14/21 at 2130, It is not recommended to crush, break, or chew immediate release tablets due to bitter taste. * 1005 (Not Given - Provider: Elba Roe RN - Reason: Other - Comment: Patient not following commands well enough to take multiple PO meds at this time) * 2036 (Given - Provider: Zoey Ramirez, RN) * 0945 (Given - Provider: Dipika Alvarado RN) * 2141 (Given - Provider: Emma Song RN) * 0841 (Given - Provider: Elba Roe RN) * 2100 (Due) umeclidinium-vilanterol (ANORO ELLIPTA) 62.5-25 MCG/INH inhaler 1 puff 1 puff, Inhalation, DAILY, First dose on Mon06/15/21 at 0800 * 0801 (Not Given - Provider: Elba Roe RN - Reason: Medication not available) * 0800 (Due) * 0630 (Not Given - Provider: Elba Roe RN - Reason: Medication not available) vitamin D (ERGOCALCIFEROL) capsule 50,000 Units 50,000 Units, Oral, DAILY, First dose on Mon06/15/21 at 0900 * 1006 (Not Given - Provider: Elba Roe RN - Reason: Other - Comment: Patient not following commands well enough to take multiple PO meds at this time) * 0945 (Given - Provider: Dipika Alvarado RN) * 0841 (Given - Provider: Elba Roe RN) zinc sulfate (ZINCATE) capsule 100 mg 100 mg, Oral, DAILY, First dose on Mon06/15/21 at 0900, Each 220mg Zinc Sulfate cap contains 50mg elemental zinc. * 1006 (Not Given - Provider: Elba Roe RN - Reason: Other - Comment: Patient not following commands well enough to take multiple PO meds at this time) * 0945 (Given - Provider: Dipika Alvarado RN) * 0841 (Given - Provider: Elba Roe RN) Medication Order06/16/20200731//20200731/ 0.9 % sodium chloride infusion (CANCELED) IntraVENous, at 150 mL/hr, CONTINUOUS, Starting on Mon06/14/21 at 2130 * 0436 (New Bag - Provider: Zoey Ramirez, DONAL) * 0956 (Stopped - Provider: Elba Roe RN) potassium chloride 40 mEq in lactated ringers 1,000 mL infusion IntraVENous, at 125 mL/hr, CONTINUOUS, Starting on Mon06/16/21 at 1700 * 2059 (New Bag - Provider: Zoey Ramirez, RN) * 0540 (New Bag - Provider: Zoey Ramirez, RN) * 1539 (New Bag - Provider: Dipika Alvarado, DONAL) * 0527 (New Bag - Provider: Emma Song RN) Medication Order//20200731/ 0.9 % sodium chloride infusion 25 mL, [...] on Mon06/16/21 at 1342, For 1 dose * 1346 (Given - Provider: Gricelda C Dryfuse) ondansetron (ZOFRAN) injection 4 mg(Linked Group 2) 4 mg, IntraVENous, EVERY 6 HOURS PRN, Nausea, Vomiting, Starting on Mon06/14/21 at 2104, Administer if oral route cannot be used. * 0104 (Given - Provider: Zoey Ramirez, DONAL) ondansetron (ZOFRAN-ODT) disintegrating tablet 4 mg(Linked Group 2) 4 mg, Oral, EVERY 8 HOURS PRN, Nausea, Vomiting, Starting on Mon06/14/21 at 2104 * 0104 (See Alternative - Provider: Zoey Ramirez, DONAL) polyethylene glycol (GLYCOLAX) packet 17 g 17 g, Oral, DAILY PRN, Constipation, Starting on Mon06/14/21 at 2104, First line therapy for constipation potassium bicarb-citric acid (EFFER-K) effervescent tablet 40 mEq(Linked Group 3) 40 mEq, Oral, PRN, Per Potassium Replacement Protocol, Starting on Mon06/16/21 at 0929, Administeras alternative if patient unable to tolerate oral tablet. K Lab Replacement Action 3.1 to 3.5 40 mEq ORAL x 1 Under 3.1 Refer to IV replacement protocol Recheck K level in AM. Protocol not for use inpatients with CrCl less than 30 mL/min. Do not chew or crush. Dissolve flavored tablets completely in 3 to 4 ounces of cold water; unflavored tablets may be dissolved in 3 to 4 ounces of cold juice. Patient to sip slowly over a 5 to 10 minute period. May further dilute if GI adverse effects occur. * 2339 (See Alternative - Provider: Zoey Ramirez RN) * 0043 (See Alternative - Provider: Zoey Ramirez, DONAL) * 0145 (See Alternative - Provider: Zoey Ramirez, DONAL) * 0250 (See Alternative - Provider: Zoey Ramirez, RN) * 0410 (See Alternative - Provider: Zoey Ramirez, DONAL) * 0538 (See Alternative - Provider: Zoey Ramirez, DONAL) potassium chloride (KLOR-CON M) extended release tablet 40 mEq(Linked Group 3) 40 mEq, Oral, PRN, Per Potassium Replacement Protocol, Starting on Mon06/16/21 at 0929, May give alternative linked oral order (ordered as effervescent, packet, or liquid solution) if patient unableto tolerate tablet. K Lab Replacement Action 3.1 to 3.5 40 mEq ORAL x 1 Under 3.1 Refer to IV replacement protocol Recheck K level in AM. Protocol not for use in patients with CrCl less than 30 mL/min. * 2339 (See Alternative - Provider: Zoey Ramirez, DONAL) * 0043 (See Alternative - Provider: Zoey Ramirez, DONAL) * 0145 (See Alternative - Provider: Zoey Ramirez, DONAL) * 0250 (See Alternative - Provider: Zoye Ramirez, DONAL) * 0410 (See Alternative - Provider: Zoey Ramirez, DONAL) * 0538 (See Alternative - Provider: Zoey Ramirez, RN) potassium chloride 10 mEq/100 mL IVPB [...] patients with CrCl less than 30 mL/min. * 2339 (New Bag - Provider: Zoey Ramirez RN) * 0043 (New Bag - Provider: Zoey Ramirez, DONAL) * 0145 (New Bag - Provider: Zoey Ramirez, RN) * 0250 (New Bag - Provider: Zoey Ramirez, DONAL) * 0410 (New Bag - Provider: Zoey Ramirez, DONAL) * 0538 (New Bag - Provider: Zoey Ramirez, RN) sodium chloride flush 0.9 % injection 10 mL 10 mL, IntraVENous, PRN, Line Care, After every IV line use, Starting on Mon06/14/21 at 2104 Order Group 1: acetaminophen (TYLENOL) tablet 650 mgJump to med 650 mg, Oral, EVERY 6 HOURS PRN, Pain Mild (1-3), Fever, For temp greater than 100.4 F (38 C), Starting on Mon06/14/21 at 2104
Maximum dose of acetaminophen is 4000 mg from all sources in 24 hours.
Or acetaminophen (TYLENOL) suppository 650 mgJump to med 650 mg, Rectal, EVERY 6 HOURS PRN, Pain Mild (1-3), Fever, For temp greater than 100.4 F (38 C), Starting on Mon06/14/21 at 2104
Administer if oral route cannot be used.
Group 2: ondansetron (ZOFRAN-ODT) disintegrating tablet 4 mgJump to med 4 mg, Oral, EVERY 8 HOURS PRN, Nausea, Vomiting, Starting on Mon06/14/21 at 210 Or ondansetron (ZOFRAN) injection 4 mgJump to med 4 mg, IntraVENous, EVERY 6 HOURS PRN, Nausea, Vomiting, Starting on Mon06/14/21 at 2103
Administer if oral route cannot be used.
Group 3: potassium chloride (KLOR-CON M) extended release tablet 40 mEqJump to med 40 mEq, Oral, PRN, Per Potassium Replacement Protocol, Starting on Mon06/16/21 at 09
May give alternative linked oral order (ordered as effervescent, packet, or liquid solution) if patient unable to tolerate tablet. K Lab &nbs p; Replacement Action 3.1 to 3.5 40 mEq ORAL x 1 Under 3.1 Refer to IV replacement protocol&am p;nbsp; Recheck K level in AM. Protocol not for use in patients with CrCl less than 30 mL/min.
Or potassium bicarb-citric acid (EFFER-K) effervescent tablet 40 mEqJump to med 40 mEq, Oral, PRN, Per Potassium Replacement Protocol, Starting on Mon06/16/21 at 0929
Administer as alternative if patient unable to tolerate oral tablet. K Lab Replacement Action 3.1 to 3.5 40 mEq ORAL x 1 Under 3.1 Refer to IV replacement protocol Recheck K level in AM. Protocol notfor use in patients with CrCl less than 30 mL/min. Do not chew or crush. Dissolveflavored tablets completely in 3 to 4 ounces [...] Replacement Protocol, Starting on Mon06/16/21 at 0929
K Lab Replacement Action 2.7 to 3.0 10 mEq IVPB x 6 doses (60 mEq Total) Under 2.7&a mp;nbsp; CALL PROVIDER and administer 10 mEq IVPBx 6 doses (60 mEq Total) Infuse at 10 mEq/hr. Repeat Potassium lab 1 hour after final administration. Protocol not for use in patients with CrCl less than 30 mL/min.
Medication Order// HYDROcodone-acetaminophen (NORCO) 5-325 MG per tablet 1 tablet (COMPLETED) 1 tablet, Oral, ONCE, 1 dose, On Mon05/23/22 at 2345, Maximum dose of acetaminophen is 4000 mg from all sources in 24 hours. * 2347 (Given - Provider: Najma Cortes RN) morphine (PF) injection 2 mg (COMPLETED) 2 mg, IntraVENous, ONCE, 1 dose, On Mon05/24/22 at 0030, If oral and IV narcotics ordered, use oral first and only use IV if oral is ineffective or cannot take oral. Do Not give oral and IV within 1hour of each other unless specifically ordered. * 0033 (Given - Provider: Najma Cortes RN) ondansetron (ZOFRAN) injection 4 mg (COMPLETED) 4 mg, IntraVENous, ONCE, 1 dose, On Mon05/24/22 at 0030 * 0033 (Given - Provider: Najma Cortes RN) Medication Order// fentaNYL (SUBLIMAZE) injection 25 mcg 25 mcg, IntraVENous, EVERY 2 HOURS PRN, Starting on Mon05/24/22 at 0314, Until Discontinued, Pain Moderate (4-6), If oral and IV narcotics ordered, use oral first and only use IV if oral is ineffective or cannot take oral. Do Not give oral and IV within 1 hour of each other unless specifically ordered. * 0345 (Given - Provider: Najma Cortes RN) * 0553 (Given - Provider: Janell Zepeda RN) * 0827 (Given - Provider: Willi Oscar RN) Medication Order/// acyclovir (ZOVIRAX) tablet 800 mg 800 mg, Oral, 5 TIMES DAILY, First dose on Mon05/25/22 at 1930, Until Discontinued, Antimicrobial Indications: Other, Other Abx Indication: herpes zoster per lexicom recommend pt be on acyclovir 800mg 5 times daily., Suspected Organism(s): herpes zoster, Substituted for Famciclovir (FAMVIR). * 2030 (Given - Provider: Tiffany Albrecht RN) * 2316 (Given - Provider: Tiffany Albrecht RN) * 0641 (Given - Provider: Tiffany Albrecht RN) * 1107 (Given - Provider: Janet South RN) * 1500 (Due) * 1900 (Due) * 2300 (Due) atorvastatin (LIPITOR) tablet 10 mg 10 mg, Oral, Nightly, First dose on Mon05/24/22 at 2100, Until Discontinued * 210 (Given - Provider: Tiffany Albrecht RN) * 2030 (Given - Provider: Tiffany Albrecht RN) * 2100 (Due) busPIRone (BUSPAR) tablet 5 mg 5 mg, Oral, 2 TIMES DAILY, First dose on Mon05/24/22 at 1245, Until Discontinued * 1510 (Not Given - Provider: Patria Fuentes RN - Reason: Patient/family refused) * 210 (Given - Provider: Tiffany Albrecht RN) * 0850 (Given - Provider: Quynh Kline) * 2030 (Given - Provider: Tiffany Albrecht RN) * 0728 (Given - Provider: Janet South, DONAL) * 2100 (Due) cetirizine (ZYRTEC) tablet 10 mg 10 mg, Oral, DAILY, First dose on Mon05/24/22 at 1245, Until Discontinued * 1500 (Given - Provider: Patria Fuentes RN) * 0851 (Given - Provider: Quynh Kline) * 0728 (Given - Provider: Janet South RN) enoxaparin (LOVENOX) injection 40 mg (CANCELED) 40 mg, SubCUTAneous, DAILY, First dose on Mon05/24/22 at 1615, Until Discontinued, Indication of Use: Treatment-DVT/PE * 1654 (Given - Provider: Patria Fuentes RN) * 0851 (Given - Provider: Quynh Kline) enoxaparin (LOVENOX) injection 40 mg 40 mg, SubCUTAneous, DAILY, First dose (after last modification) on Mon05/26/22 at 0900, Until Discontinued, Indication of Use: Prophylaxis-DVT/PE * 0740 (Given - Provider: Janet South, DONAL) fluticasone (FLONASE) 50 MCG/ACT nasal spray 1 spray 1 spray, Each Nostril, DAILY, First dose on Mon05/24/22 at 1245, Until Discontinued * 1459 (Given - Provider: Patria Fuentes RN) * 0852 (Given - Provider: Quynh Kline) * 0730 (Given - Provider: Janet South, DONAL) levothyroxine (SYNTHROID) tablet 25 mcg 25 mcg, Oral, DAILY, First dose on Mon05/24/22 at 1245, Until Discontinued, Tube feeding (TF) interaction, obtain physician order to manage, recommend holding TF for 30 minutes before and after dose. * 1459 (Given - Provider: Patria Fuentes RN) * 0506 (Given - Provider: Tiffany Albrecht, DONAL) * 0641 (Given - Provider: Tiffany Albrecht, DONAL) [...] to facility policy for handling and disposal. * 1459 (Patch Applied - Provider: Patria Fuentes RN) * 0930 (Patch Applied - Provider: Jacqui Luu) * 0939 (Patch Removed - Provider: Jacqui Luu - Comment: removed at 0938) * 0728 (Patch Applied - Provider: Janet South, DONAL) pantoprazole (PROTONIX) tablet 40 mg 40 mg, Oral, DAILY, First dose on Mon05/24/22 at 1245, Until Discontinued, Do not crush or break. * 1502 (Given - Provider: Patria Fuentes RN) * 0919 (Given - Provider: Jacqui Luu) * 0728 (Given - Provider: Janet South, DONAL) polyethylene glycol (GLYCOLAX) packet 17 g 17 g, Oral, DAILY, First dose (after last modification) on Mon05/25/22 at 0900, Until Discontinued, First line therapy for constipation * 0932 (Given - Provider: Jacqui Luu) * 0731 (Not Given - Provider: Janet South, DONAL - Reason: Patient/family refused) sertraline (ZOLOFT) tablet 100 mg 100 mg, Oral, DAILY, First dose on Mon05/24/22 at 1245, Until Discontinued * 1500 (Given - Provider: Patria Fuentes RN) * 0922 (Given - Provider: Jacqui Luu) * 0728 (Given - Provider: Janet South, DONAL) [...] non-viscous solutions use: Peripheral IV = 5 mLMidline or Central Line = 10 mL/lumen For viscous solutions (i.e. blood components, parenteral nutrition, contrast media, or after obtaining blood sample) use: Peripheral IV = 10 mL Midline or Central Line = 20 mL/lumen * 210 (Given - Provider: Tiffany Albrecht RN) * 1151 (Given - Provider: Mishel Leroy RN) * 2030 (Not Given - Provider: Tiffany Albrecht RN - Reason: Loss of IV access) * 0736 (Not Given - Provider: Janet South, DONAL - Reason: Loss of IV access) * 2100 (Due) tiotropium-olodaterol (STIOLTO) 2.5-2.5 MCG/ACT inhaler 2 puff 2 puff, Inhalation, DAILY, First dose on Mon05/24/22 at 1245, Until Discontinued, Substituted for Umeclidinium-Vilanterol (ANORO ELLIPTA). * 2034 (Canceled Entry - Provider: Nathalie Soto RCP - Comment: will give at appropriate time in AM) * 0928 (Given - Provider: Cassandra Jerry RCP) * 0821 (Given - Provider: Ana Harris RCP) topiramate (TOPAMAX) tablet 125 mg 125 mg, Oral, 2 TIMES DAILY, First dose on Mon05/24/22 at 1245, Until Discontinued, It is not recommended to crush, break, or chew immediate release tablets due to bitter taste. * 1459 (Given - Provider: Patria Fuentes RN) * 210 (Given - Provider: Tiffany Albrecht, DONAL) * 0923 (Given - Provider: Jacqui Luu) * 2030 (Given - Provider: Tiffany Albrecht RN) * 0731 (Given - Provider: Janet South RN) * 2100 (Due) Medication Order/// 0.9 % sodium chloride infusion IntraVENous, at 5-250 mL/hr, PRN, if patient receiving piggyback infusions and maintenance fluids are not ordered OR KVO fluids to protect IV site / prevent frequent line interruptions/ long duration, Starting on Mon05/24/22 at 1212, For piggyback infusion, administer at same rate as piggyback fora total of 25 mL. Enter 25 mL [...] sources in 24 hours. albuterol sulfate HFA (PROVENTIL;VENTOLIN;PROAIR) 108 (90 Base) MCG/ACT inhaler 2 puff 2 puff, Inhalation, EVERY 6 HOURS PRN, Starting on Mon05/24/22 at 1205, Until Discontinued, Wheezing, Initiate RT Bronchodilator Protocol: Yes - Inpatient Protocol HYDROcodone-acetaminophen (NORCO) 5-325 MG per tablet 1 tablet(Linked Group 2) 1 tablet, Oral, EVERY 4 HOURS PRN, Starting on Mon05/24/22 at 1217, Until Discontinued, Pain Moderate (4-6), Maximum dose of acetaminophen is 4000 mg from all sources in 24 hours. * 1502 (See Alternative - Provider: Patria Fuentes RN) * 2101 (See Alternative - Provider: Tiffany Albrecht RN) * 0452 (See Alternative - Provider: Tiffany Albrecht RN) * 0911 (See Alternative - Provider: Jacqui Luu) * 1317 (See Alternative - Provider: Mishel Leroy RN) * 181 (See Alternative - Provider: Mishel Leroy RN) * 2216 (See Alternative - Provider: Tiffany Albrecht RN) * 0358 (See Alternative - Provider: Tiffany Albrecht RN) * 0740 (See Alternative - Provider: Janet South RN) HYDROcodone-acetaminophen (NORCO) 5-325 MG per tablet 2 tablet(Linked Group 2) 2 tablet, Oral, EVERY 4 HOURS PRN, Starting on Mon05/24/22 at 1217, Until Discontinued, Pain Severe (7-10), Maximum dose of acetaminophen is 4000 mg from all sources in 24 hours. * 1502 (Given - Provider: Patria Fuentes RN) * 2101 (Given - Provider: Tiffany Albrecht RN) * 0452 (Given - Provider: Tiffany Albrecht RN) * 0911 (Given - Provider: Jacqui Luu) * 1317 (Given - Provider: Mishel Leroy RN) * 181 (Given - Provider: Mishel Leroy RN) * 2216 (Given - Provider: Tiffany Albrecht RN) * 0358 (Given - Provider: Tiffany Albrecht RN) * 0740 (Given - Provider: Janet South RN) LORazepam [...] AM. Not for use in Patients with CrClless than 30 mL/min. morphine (PF) injection 2 mg(Linked Group 3) 2 mg, IntraVENous, EVERY 2 HOURS PRN, Starting on Mon05/24/22 at 1217, Until Discontinued, Pain Moderate (4-6), If oral and IV narcotics ordered, use oral first and only use IV if oral is ineffective or cannot take oral. Do Not give oral and IV within 1 hour of each other unless specifically ordered. * 1249 (See Alternative - Provider: Patria Fuentes RN) * 1655 (See Alternative - Provider: Patria Fuentes RN) * 0019 (Given - Provider: Tiffany Albrecht, DONAL) * 1151 (See Alternative - Provider: Mishel Leroy, DONAL) morphine injection 4 mg(Linked Group 3) 4 mg, IntraVENous, EVERY 2 HOURS PRN, Starting on Mon05/24/22 at 1217, Until Discontinued, Pain Severe (7-10), If oral and IV narcotics ordered, use oral first and only use IV if oral is ineffectiveor cannot take oral. Do Not give oral and IV within 1 hour of each other unless specifically ordered. * 1249 (Given - Provider: Patria Fuentes RN) * 1655 (Given - Provider: Patria Fuentes, RN) * 0019 (See Alternative - Provider: Tiffany Albrecht, DONAL) * 1151 (Given - Provider: Mishel Leroy RN) ondansetron (ZOFRAN) injection 4 mg(Linked Group 4) 4 mg, IntraVENous, EVERY 6 HOURS PRN, Starting on Mon05/24/22 at 1212, Until Discontinued, Nausea,Vomiting, Administer if oral route cannot be used. [...] mL/min. Do not chew or crush. Dissolve flavoredtablets completely in 3 to 4 ounces of [...] Mon05/24/22 at 1217, Until Discontinued, Potassium Replacement, Maygive alternative linked oral order (ordered as effervescent, packet, or liquid solution) if patientunable to tolerate tablet. K Lab Replacement Action [...] hour for x number of doses., 10 mEq,IntraVENous, PRN, Starting on Mon05/24/22 at 1217, Until Discontinued, at 100 mL/hr, Potassium Replacement, K Lab Replacement Action 2.7 to 3.0 10 mEq IVPB x 6 doses (60 mEq Total) Under 2.7 CALL PROVIDER and administer 10 mEq IVPB x 6 doses (60 mEq Total) Infuse at 10 mEq/hr. Repeat Potassium lab1 hour after final administration. Protocol not for [...] Midline or Central Line = 20 mL/lumen * 1251 (Given - Provider: Patria Fuentes RN) Order Group 1: acetaminophen (TYLENOL) tablet 650 [...] and IV within 1 hour of each otherunless specifically ordered.
Group 4: ondansetron (ZOFRAN-ODT) disintegrating tablet 4 mgJump to med 4 mg, Oral, EVERY 8 HOURS PRN, Starting on Mon05/24/22 at 1212, Until Discontinued, Nausea, Vomiting Or ondansetron (ZOFRAN) injection 4 mgJump to med 4 mg, IntraVENous, EVERY 6 HOURS PRN, Starting on Mon05/24/22 at 1212, Until Discontinued, Nausea,Vomiting
Administer if oral route cannot be used.
Group 5: potassium chloride (KLOR-CON M) extended release tablet 40 mEqJump to med 40 mEq, Oral, PRN, Starting on Mon05/24/22 at 1217, Until Discontinued, Potassium Replacement
May give alternative linked oral order (ordered as effervescent, packet, or liquid solution) ifpatient unable to tolerate tablet. K Lab & amp;nbsp; Replacement Action&am p;nbsp;3.1 to 3.5 40 mEq ORAL x 1 Under 3.1 Refer to IV replacement prot ocol Recheck K level in AM. Protocol not for use in patients with CrCl less than 30 mL/min.
Or potassium bicarb-citric acid (EFFER-K) effervescent tablet 40 mEqJump to med 40 mEq, Oral, PRN, Starting on Mon05/24/22 at 1217, Until Discontinued, Per Potassium Replacement Protocol
Administer as alternative if patient unable to tolerate oral tablet. K Lab Replacement Action 3.1 to 3.5 &a mp;nbsp; 40 mEq ORAL x 1 Under 3.1 &nb sp; Refer to IV replacement protocol Recheck K [...]
Care Teams (unrecognized sec tion and content) Team MemberRelationshipSpecialtyStart DateEnd Date Minda Yeboah [address] [place] [address] PCP - GeneralNurse Wnutzgkjqyht46/19/21Team MemberRelationshipSpecialtyStart DateEnd Date Minda Yeboah [address] [place] [address] PCP - GeneralNurse Wqysltamtnvv52/19/21Team MemberRelationshipSpecialtyStart DateEnd Date Minda Yeboah [address] [place] [address] PCP - GeneralNurse Ikdflzfyeuho81/19/21Team MemberRelationshipSpecialtyStart DateEnd Date Tony Mathur MD [address] [place] [address] PCP - GeneralFamily Medicine09/19/23 Minda Yeboah NP [address] [place] [address] Referring PhysicianNurse Practitioner02/10/23 Minda Yeboah NP [address] [place] [address] Nurse PractitionerFamily Medicine09/19/23Team MemberRelationshipSpecialtyStart DateEnd Date Tony Mathur MD [address] [place] [address] PCP - Generalmily Medicine09/19/23 Minda Yeboah NP [address] [place] [address] Referring PhysicianNurse Practitioner02/10/23 Minda Yeboah NP [address] [place] [address] [facility]/19/23Team MemberRelationshipSpecialtyStart DateEnd Date Tony Mathur MD [address] [place] [address] PCP - Generalmily Medicine09/19/23 Minda Yeboah NP [address] [place] [address] Referring PhysicianNurse Practitioner02/10/23 Minda Yeboah NP [address] [place] [address] Nurse PractitionerFamily Medicine09/19/23Team MemberRelationshipSpecialtyStart DateEnd Date Tony Mathur MD [address] [place] [address] PCP - GeneralFawyly Medicine09/19/23 Minda Yeboah NP [address] [place] [address] Referring PhysicianNurse Practitioner02/10/23 Minda Yeboah NP [address] [place] [address] [facility]09/19/23Team MemberRelationshipSpecialtyStart DateEnd Date Tony Mathur MD [address] [place] [address] PCP - [facility] Medicine09/19/23 Minda Yeboah NP [address] [place] [address] Referring PhysicianNurse Practitioner02/10/23 Minda Yeboah NP [address] [place] [address] [facility]/19/23Team MemberRelationshipSpecialtyStart DateEnd Date Tony Mathur MD [address] [place] [address] PCP - [facility]/19/23 Minda Yeboah NP [address] [place] [address] Referring PhysicianNurse Practitioner02/10/23 Minda Yeboah NP [address] [place] [address] Nurse PractitionerFawyly Medicine09/19/23Team MemberRelationshipSpecialtyStart DateEnd Date Tony Mathur MD [address] [place] [address] PCP - [facility]/19/23 Minda Yeboah NP [address] [place] [address] Referring PhysicianNurse Practitioner02/10/23 Minda Yeboah NP [address] [place] [address] [facility]09/19/23Team MemberRelationshipSpecialtyStart DateEnd Date Tony Mathur MD [address] [place] [address] PCP - [facility]/19/23 Minda Yeboah NP [address] [place] [address] Referring PhysicianNurse Practitioner02/10/23 Minda Yeboah NP [address] [place] [address] Nurse PractitionerFamily Medicine09/19/23Team MemberRelationshipSpecialtyStart DateEnd Date Tony Mathur MD [address] [place] [address] PCP - GeneralFamily Medicine09/19/23 Minda Yeboah NP [address] [place] [address] Referring PhysicianNurse Practitioner02/10/23 Minda Yeboah NP [address] [place] [address] [facility]09/19/23Team MemberRelationshipSpecialtyStart DateEnd Date Tony Mathur MD [address] [place] [address] PCP - [facility]09/19/23 Minda Yeboah NP [address] [place] [address] Referring PhysicianNurse Practitioner02/10/23 Minda Yeboah NP [address] [place] [address] [facility]09/19/23Team MemberRelationshipSpecialtyStart DateEnd Date Tony Mathur MD [address] [place] [address] PCP - Generalmily Medicine09/19/23 Minda Yeboah NP [address] [place] [address] Referring PhysicianNurse Practitioner02/10/23 Minda Yeboah NP [address] [place] [address] [facility]09/19/23Team MemberRelationshipSpecialtyStart DateEnd Date Tony Mathur MD [address] [place] [address] PCP - [facility]09/19/23 Minda Yeboah NP [address] [place] [address] Referring PhysicianNurse Practitioner02/10/23 Minda Yeboah NP [address] [place] [address] [facility]09/19/23Team MemberRelationshipSpecialtyStart DateEnd Date Tony Mathur MD [address] [place] [address] PCP - [facility]09/19/23 Minda Yeboah NP [address] [place] [address] Referring PhysicianNurse Practitioner02/10/23 Minda Yeboah NP [address] [place] [address] Nurse Practitionermily Medicine09/19/23Team MemberRelationshipSpecialtyStart DateEnd Date Tony Mathur MD [address] [place] [address] PCP - [facility]09/19/23 Minda Yeboah NP [address] [place] [address] Referring PhysicianNurse Practitioner02/10/23 Minda Yeboah NP [address] [place] [address] [facility]09/19/23Team MemberRelationshipSpecialtyStart DateEnd Date Tony Mathur MD [address] [place] [address] PCP - [facility] Medicine09/19/23 Midna Yeboah NP [address] [place] [address] Referring PhysicianNurse Practitioner02/10/23 Minda Yeboah NP [address] [place] [address] [facility]09/19/23Team MemberRelationshipSpecialtyStart DateEnd Date Tony Mathur MD [address] [place] [address] PCP - GeneralFamily Medicine09/19/23 Minda Yeboah NP [address] [place] [address] Referring PhysicianNurse Practitioner02/10/23 Minda Yeboah NP [address] [place] [address] [facility]09/19/23Team MemberRelationshipSpecialtyStart DateEnd Date Tony Mathur MD [address] [place] [address] PCP - GeneralFamily Medicine09/19/23 Minda Yeboah NP [address] [place] [address] Referring PhysicianNurse Practitioner02/10/23 Minda Yeboah NP [address] [place] [address] Nurse PractitionerF[facility]09/19/23Team MemberRelationshipSpecialtyStart DateEnd Date Tony Mathur MD [address] [place] [address] PCP - GeneralFamily Medicine09/19/23 Minda Yeboah NP [address] [place] [address] Referring PhysicianNurse Practitioner02/10/23 Minda Yeboah NP [address] [place] [address] [facility]09/19/23Team MemberRelationshipSpecialtyStart DateEnd Date Tony Mathur MD [address] [place] [address] PCP - [facility]09/19/23 Minda Yeboah NP [address] [place] [address] Referring PhysicianNurse Practitioner02/10/23 Minda Yeboah NP [address] [place] [address] [facility]/23 Team Status: Inactive Member Role Status Dates Minda Yeboah Attending Provider Active Start: December 18, 2024 End: December 18, 2024Team MemberRelationshipSpecialtyStart DateEnd Date Tony Mathur MD [address] [place] [address] PCP - [facility]09/19/23 Minda Yeboah NP [address] [place] [address] Referring PhysicianNurse Practitioner02/10/23 Minda Yeboah NP [address] [place] [address] [facility]09/19/23Team MemberRelationshipSpecialtyStart DateEnd Date Tony Mathur MD [address] [place] [address] PCP - GeneralFamily Medicine09/19/23 Minda Yeboah NP [address] [place] [address] Referring PhysicianNurse Practitioner02/10/23 Minda Yeboah NP [address] [place] [address] [facility]09/19/23Team MemberRelationshipSpecialtyStart DateEnd Date Tony Mathur MD [address] [place] [address] PCP - GeneralFamily Medicine09/19/23 Minda Yeboah NP [address] [place] [address] Referring PhysicianNurse Practitioner02/10/23 Minda Yeboah NP [address] [place] [address] [facility]09/19/23Team MemberRelationshipSpecialtyStart DateEnd Date Tony Mathur MD [address] [place] [address] PCP - GeneralFamily Medicine09/19/23 Minda Yeboah NP [address] [place] [address] Referring PhysicianNurse Practitioner02/10/23 Minda Yeboah NP [address] [place] [address] [facility]09/19/23Team MemberRelationshipSpecialtyStart DateEnd Date Tony Mathur MD [address] [place] [address] PCP - [facility] Medicine09/19/23 Minda Yeboah NP [address] [place] [address] Referring PhysicianNurse Practitioner02/10/23 Minda Yeboah NP [address] [place] [address] [facility]09/19/23Team MemberRelationshipSpecialtyStart DateEnd Date Tony Mathur MD [address] [place] [address] PCP - [facility]/19/23 Minda Yeboah NP [address] [place] [address] Referring PhysicianNurse Practitioner02/10/23 Minda Yeboah NP [address] [place] [address] [facility]09/19/23Team MemberRelationshipSpecialtyStart DateEnd Date Tony Mathur MD [address] [place] [address] PCP - [facility]09/19/23 Minda Yeboah NP [address] [place] [address] Referring PhysicianNurse Practitioner02/10/23 Minda Yeboah NP [address] [place] [address] [facility]09/19/23Team MemberRelationshipSpecialtyStart DateEnd Date Tony Mathur MD [address] [place] [address] PCP - [facility]/19/23 Minda Yeboah NP [address] [place] [address] Referring PhysicianNurse Practitioner02/10/23 Minda Yeboah NP [address] [place] [address] [facility]09/19/23 Team Status: Active Member Role Status Dates Minda Yeboah NP-Jessi Primary Care Provider Active Team Status: Inactive Member Role Status Dates Minda Yeboah NP-Jessi Primary Care Provider Active Start: April 28, 2025 End: April 28, 2025Lisa Hira Yeboah NP-CAttending ProviderActiveStart: April 28, 2025 End: April 28, 2025Team MemberRelationshipSpecialtyStart DateEnd Date Tony Mathur MD PCP - GeneralFamily Medicine09/19/23 Minda Yeboah NP Referring PhysicianNurse Practitioner02/10/23 Minda Yeboah NP [facility]09/19/23Team MemberRelationshipSpecialtyStart DateEnd Date Tony Mathur MD PCP - GeneralFamily Medicine Tony Mathur MD PCP - GeneralFamily Medicine09/19/23 Minda Yeboah NP Referring PhysicianNurse Practitioner02/10/23 Minda Yeboah NP [facility]09/19/23 INFORMATION SOURCE (unrecogn ized section and content) DATE CREATED AUTHOR 05/30/2022 [facility] DATE CREATED AUTHOR AUTHOR'S ORGANIZ ATION 11/15/2022 [facility] DATE CREATED AUTHOR AUTHOR'S ORGANIZ ATION 01/06/2023 [facility] DATE CREATED AUTHOR AUTHOR'S ORGANIZ ATION 12/24/2023 [facility] DATE CREATED AUTHOR AUTHOR'S ORGANIZ ATION 08/31/2024 [facility] DATE CREATED AUTHOR AUTHOR'S ORGANIZ ATION 10/19/2024 [facility] DATE CREATED AUTHOR AUTHOR'S ORGANIZ ATION 12/26/2024 [facility] DATE CREATED AUTHOR AUTHOR'S ORGANIZ ATION 02/10/2025 [facility] DATE CREATED AUTHOR AUTHOR'S ORGANIZ ATION 02/25/2025 [facility] DATE CREATED AUTHOR AUTHOR'S ORGANIZ ATION 03/24/2025 [facility] DATE CREATED AUTHOR AUTHOR'S ORGANIZ ATION 04/06/2025 [facility] DATE CREATED AUTHOR AUTHOR'S ORGANIZ ATION 05/18/2025 [facility] Goals (unrecognized section and content) Goals may be documented in a n alternate section FOR RECORDS PERTAINING TO PATIENTS WHO ARE [...] BE BASED ON THE PRIMARY CLINICAL RECORDS. [facility] [employer] provides no warranty or guarantee of the accuracy or completeness of information in this document.
[2025-06-09 17:47] LABS: Hematocrit 36.1 % (36.0-48.0); Hemoglobin 12.1 g/dL (12.0-16.0); Immature Granulocytes Abs Auto 0.03 10^3/uL (0.00-0.03); Immature Granulocytes Pct Auto 0.4 % (0.0-0.5); Lymphocytes Absolute Auto 1.5 10^3/uL (1.2-3.8); Mean Corpuscular HGB Conc 33.5 g/dL (29.9-35.2); Mean Corpuscular Hemoglobin 30.9 pg (26.7-34.0); Mean Corpuscular Volume 92.1 fL (81.0-99.0); Platelet Count 326 10^3/uL (150-450); Red Blood Count 3.92 10^6/uL (4.20-5.40); White Blood Count 7.2 10^3/uL (4.0-11.0)
--- NOTE | 2025-06-09 17:49 | ED_ITS ---
HPI HPI - General Adult General Chief complaint: Fall Stated complaint: OTHER Time Seen by Provider: 06/09/25 16:53 Source: patient Mode of arrival: ambulance History of Present Illness HPI narrative: Patient is a 59-year-old female presenting to the emergency department for evaluation of multiple falls. Patient states that over the last 24 hours she has had recurrent falls. She believes she is falling because her legs are weak and it been giving out on her. She also states she is numb from her bellybutton and down into her legs, mostly on the right. She states that her symptoms have been progressively worsening over the last 3 weeks. She states that she is typically independent and able to cook, clean, and take care of herself. However, she is so weak, that she cannot take care of her self at home anymore. She states she is a history of lower back pain, but has never had surgery before. She denies history of cancer. No history of IV drug use or diabetes. She has no fevers or chills. Denies any recent falls or injuries. She denies any loss of bladder/bowel function. Related Data Home Medications ?Medication ?Instructions ?Recorded ?Confirmed aripiprazole 5 mg tablet 5 mg PO DAILY 06/09/2506/09 atorvastatin 40 mg tablet 40 mg PO DAILY 06/09/2505/31 cetirizine 10 mg tablet 10 mg PO DAILY 06/09/2505/31 fluticasone propionate 50 2 spray intranasal Q12H 05/3106/09/25 mcg/actuation nasal spray,suspension folic acid 1 mg tablet 06/09/25 levothyroxine 50 mcg tablet 75 mcg PO DAILY 06/09/25 1 08/09/24 magnesium oxide 400 mg (241.3 mg 400 mg PO .darrel.y 05/2406/09/25 magnesium) tablet pantoprazole 40 mg tablet,delayed 40 mg PO DAILY 06/0906/09/25 release quetiapine 50 mg tablet 50 mg PO DAILY 06/09/2505/31 sertraline 100 mg tablet 100 mg PO DAILY 06/09/2505/24 topiramate 100 mg tablet 100 mg PO Q12H 06/09/2505/31 topiramate 25 mg tablet 25 mg PO Q12H 06/09/2506/09 Allergies Allergy/AdvReac Type Severity Reaction Status Date / Time No Known Drug Allergies Allergy Verified 06/09/25 16:52 Opioid HPI Opioid Management Most Recent Opioid Data: Last Pain Scale 4 Today, 17:56 Last SEP Pain Assessment Today, 17:56 Review of Systems ROS Status of ROS 10 or more systems reviewed and unremark able except as noted in history and below PFSH PFSH Social History Little interest or pleasure in doing things: not at all Feeling down, depressed, or hopeless: not at all Exam Narrative Exam Narrative: CONSTITUTIONAL: No acute distress, answering questions and following commands appropriately SKIN: Was warm and dry. EYES: Sclerae white. EARS, NOSE, THROAT: Moist oral mucosa. RESPIRATORY: Clear to auscultation bilaterally, no wheezes, crackles, or st ridor, no use of accessory muscles CARDIOVASCULAR: Normal rate and regular rhythm. There is no S3, S4, murmur, rub. 2+ DP pulses bilaterally. GASTROINTESTINAL: Abdomen is soft, nontender, nondistended. MUSCULOSKELETAL: There is midline L-spine tenderness and tenderness to the paraspinal muscles of the lower back. NEUROLOGIC: Patient is awake and alert. Patient has severely diminished sensation to painful stimuli from the umbilicus to lower abdomen bilaterally. She has diminished sensation to painful stimuli in the bilateral lower extremities, significantly worse on the right. 0/4 patellar reflexes bilaterally. Weak rectal tone. Patient unable to lift the right leg off the bed or resist against gravity. She is able to hold the left leg up off the stretcher and resist gravity, however cannot resist against mild resistance. Constitutional Vital Signs, click to edit/add: Last Vital Signs Temp 96.0 F L 06/09/25 16:53 Pulse 96 H 06/09/25 16:53 Resp 18 06/09/25 16:53 BP 142/96 H 06/09/25 16:53 Pulse Ox 98 06/09/25 16:53 O2 Del Method Room Air 06/09/25 16:53 Course Vital Signs Vital signs: Vital Signs Temperature 96.0 F L 06/09/25 16:53 Pulse Rate 96 H 06/09/25 16:53 Respiratory Rate 18 06/09/25 16:53 Blood Pressure 142/96 H 06/09/25 16:53 Pulse Oximetry 98 06/09/25 16:53 Oxygen Delivery Method Room Air 06/09/25 16:53 Temperature 96.0 F L 06/09/25 16:53 Pulse Rate 96 H 06/09/25 16:53 Respiratory Rate 18 06/09/25 16:53 Blood Pressure 142/96 H 06/09/25 16:53 Pulse Oximetry 98 06/09/25 16:53 Oxygen Delivery Method Room Air 06/09/25 16:53 Medical Decision Making MDM Narrative Medical decision making narrative: Patient is a 59-year-old female presenting to the emergency department for 3- week history of progressively worsening lower extremity weakness, numbness, and lower back pain. Her vital signs on arrival are within normal limits. She is afebrile and hemodynamically stable. Her examination as noted above. Patient has significant weakness and sensory deficits from the umbilicus distally into the right lower extremity. I am concerned for cauda equina syndrome/significant spinal cord compression, especially given her lack of reflexes and weak rectal tone. The patient is unable to stand up out of the bed without falling over. Possible etiologies include spinal epidural hematoma/abscess or malignancy. I do believe she warrants urgent MRI and neurosurgery consult. An IV was established and laboratory studies were obtained. Initial CTs of the lumbar/thoracic spine ordered. She was given 16 mg IV dexamethasone and 0.5 mg of Dilaudid for pain. CT without contrast of the thoracolumbar spine demonstrated osteopenia with findings suspicious for acute or subacute compression fracture of T5. Laboratory studies were unremarkable. No significant electrolyte or metabolic derangement. No evidence of acute kidney injury. No significant anemia, leukocytosis, or thrombocytopenia. Mild elevation in her CRP/ESR. I did consult and discuss the patient with neurosurgeon at [facility] [address], Dr. Garcia, who recommended transfer to [facility] for MRI. I did discuss the patient with hospitalist, Dr. Bermudez, who accepted the patient for transfer. FINAL IMPRESSION: #Acute bilateral lower extremity weakness and sensory deficits, concern for spinal cord compression, possible cauda equina syndrome #Acute vs. subacute T5 compression fracture DISPOSITION: Transfer to [facility] CONDITION: Fair Lab Data Lab results reviewed: Yes I reviewed the patient's lab results Labs: Lab Results 06/09/25 Range/Units 17:33 WBC 7.2 (4.0-11.0) 10^3/uL RBC 3.92 L (4.20-5.40) 10^6/uL Hgb 12.1 (12.0-16.0) g/dL Hct 36.1 (36.0-48.0) % MCV 92.1 (81.0-99.0) fL MCH 30.9 (26.7-34.0) pg MCHC 33.5 (29.9-35.2) g/dL RDW 15.3 H (11.0-15.0) % Plt Count 326 (150-450) 10^3/uL MPV 8.9 L (9.5-13.5) fL Neut % (Auto) 77.8 H (43.0-75.0) % Lymph % (Auto) 20.1 L (20.5-60.0) % Traill % (Auto) 1.2 L (1.7-12.0) % Eos % (Auto) 0.4 L (0.9-7.0) % Baso % (Auto) 0.1 L (0.2-2.0) % Neut # (Auto) 5.6 (1.4-6.5) 10^3/uL Lymph # (Auto) 1.5 (1.2-3.8) 10^3/uL Traill # (Auto) 0.1 L (0.3-0.8) 10^3/uL Eos # (Auto) 0.0 (0.0-0.7) 10^3/uL Baso # (Auto) 0.0 (0.0-0.1) 10^3/uL Abs Immat Gran (auto) 0.03 (0.00-0.03) 10^3/uL Imm/Tot Granulo (auto) 0.4 (0.0-0.5) % ESR 69 H (<=30) mm/hr PT 10.3 (9.0-11.6) sec INR 0.97 APTT 24.5 (22.3-36.2) sec Sodium 133 L (136-145) mmol/L Potassium 3.8 (3.5-5.1) mmol/L Chloride 96 L (98-107) mmol/L Carbon Dioxide 25.7 (21.0-32.0) mmol/L Anion Gap 15.1 BUN 16.0 (7.0-18.0) mg/dL Creatinine 0.83 (0.55-1.02) mg/dL Est GFR ( Amer) >60 (>=60 mL/min/1.73m^2) Est GFR (Non-Af Amer) >60 (>=60 mL/min/1.73m^2) BUN/Creatinine Ratio 19.3 Glucose 100 (74-106) mg/dL Calcium 10.0 (8.5-10.1) mg/dL Total Bilirubin 0.7 (0.2-1.0) mg/dL AST 29 (15-37) U/L ALT 32 (14-59) U/L Alkaline Phosphatase 75 (46-116) U/L C-Reactive Protein 2.27 H (<=0.50) mg/dL Total Protein 7.3 (6.4-8.2) g/dL Albumin 3.7 (3.4-5.0) g/dL Globulin 3.6 g/dL Albumin/Globulin Ratio 1.[address] lumbar spine: Attestation: I personally reviewed and interpreted this imaging study as follows: Radiologist's impression: ITS Impressions Thoracic Spine CT 06/09/25 17:25 IMPRESSION: Osteopenia with findings suspicious for acute or subacute compression fracture at T5 Impression dictated by: Skyler Hilliard M.D. 06/09/2025 6:35 PM Dictation Location: [place] [id number] Electronically authenticated by: [id number] Y Date: 06/09/2025 18:35 Discharge Plan Discharge Chief Complaint: Fall Clinical Impression: Bilateral leg weakness, Compression fracture of T5 vertebra Patient Disposition: [facility] Time of Disposition Decision: 18:57 Discharge Location: [facility] Condition: Fair Mode of Transportation: EMS
[2025-06-09 17:54] LABS: INR 0.97; Partial Thromboplastin Time 24.5 sec (22.3-36.2); Prothrombin Time 10.3 sec (9.0-11.6)
[2025-06-09] MEDS: HYDROMORPHONE HCL 0.5 MG/0.5 ML SYRINGE IV (17:56)
[2025-06-09] MEDS: DEXAMETHASONE SOD PHOS 10 MG/ML VIAL 16 MG IV (17:56)
[2025-06-09 18:02] LABS: Alanine Aminotransferase 32 U/L (14-59); Albumin Globulin Ratio 1.0; Albumin Level 3.7 g/dL (3.4-5.0); Alkaline Phosphatase 75 U/L (46-116); Anion Gap 15.1; Aspartate Amino Transferase 29 U/L (15-37); Blood Urea Nitrogen 16.0 mg/dL (7.0-18.0); Calcium 10.0 mg/dL (8.5-10.1); Carbon Dioxide 25.7 mmol/L (21.0-32.0); Chloride 96 mmol/L (98-107); Estimated GFR (African America >60 (>=60 mL/min/1.73m^2); Estimated GFR (Non-African Ame >60 (>=60 mL/min/1.73m^2); Globulin 3.6 g/dL; Glucose 100 mg/dL (74-106); Potassium 3.8 mmol/L (3.5-5.1); Sodium 133 mmol/L (136-145); Total Protein 7.3 g/dL (6.4-8.2)
[2025-06-09] MEDS: QUETIAPINE FUMARATE 25 MG TABLET 50 MG PO (19:04)
[2025-06-09] MEDS: QUETIAPINE FUMARATE 100 MG TABLET PO (19:04)
[2025-06-09] MEDS: CYCLOBENZAPRINE HCL 10 MG TABLET 5 MG PO (19:05)
[2025-06-09] MEDS: TOPIRAMATE 100 MG TABLET PO (19:05)
[2025-06-09] MEDS: TOPIRAMATE 25 MG TABLET PO (19:05)
[2025-06-09 19:13] VITALS: BP 142/96; PULSE 100; TEMP 36.6; O2SAT 98
[2025-06-09] MEDS: HYDROMORPHONE HCL 1 MG/ML CARTRIDGE 0.5 MG IVP (20:35)
[2025-06-09 20:40] VITALS: BP 101/83; PULSE 113; TEMP 37.2; O2SAT 97
== END 2025-06-09 21:10 | disposition short-term general hospital (02) ==
PROVIDERS: Emergency Provider Student in an Organized Health Care Education/Training Program; PCP Nurse Practitioner
DX: M48.54XA Collapsed vertebra, not elsewhere classified, thoracic region, initial encounter for fracture (principal); R53.1 Weakness; M85.88 Other specified disorders of bone density and structure, other site; Z91.81 History of falling
CPT/HCPCS: 36415; 51798; 72128; 72131; 76376; 80053; 85025; 85610; 85652; 85730; 86140; 96374; 96375; 96376; 99285; J1100; J1171